=== PATIENT | male | born 1970 | race Caucasian/White ===

== ENCOUNTER 2019-03-25 17:18 | Emergency (ER) | payer MEDICARE, SELFPAY ==
[2019-03-25 17:20] VITALS: BP 133/81; PULSE 79; RESP 16; TEMP 36.6; O2SAT 99; BMI 33.2
--- NOTE | 2019-03-25 18:44 | ED.DCSUM_ITS ---
History of Present Illness Chief Complaint: Abd Pain Informant: Patient, Family Onset: Today Narrative: Patient presents with suprapubic discomfort along with noting blood in his Baum catheter. He is on Lovenox for history of lupus with blood clots in the past. Baum catheter placed in November due to urethral strictures followed by Dr. Jones from [facility]. Upcoming plans for suprapubic cath for planned surgery. Last Baum exchange was earlier this month. No fevers. States feeling weak. No vomiting or diarrhea. States Baum catheter is still draining. Prior similar symptoms: No Past Medical History - Allergies and Home Meds Allergies/Adverse Reactions: Allergies piperacillin Allergy (Verified 03/25/19 17:20) Unknown vancomycin Allergy (Verified 03/25/19 17:20) Unknown Primary Care Physician: Paul Urias MD [Primary Care Provider] - Past Medical History: - - Lupus, blood clots, splenomegaly, urethral stricture Smoking Status: Never smoker Review of Systems General: Denies: Chills, Fever, Sweats Eyes: Denies: Visual changes - bilaterally, Diplopia ENT: Denies: Rhinorrhea, Sore throat Cardiovascular: Denies: Chest pain, Palpitations Respiratory: Denies: Dyspnea, Cough, Dyspnea on exertion Gastrointestinal: Reports: Abdominal pain. Denies: Nausea, Vomiting, Diarrhea, Melena, Hematochezia Genitourinary: Denies: Dysuria, Hematuria, Frequency Musculoskeletal: Denies: Back pain, Extremity Pain Skin: Denies: Rash, Wounds Neurological: Reports: Weakness. Denies: Headache, Numbness Physical Exam Vital Signs/Narrative: Vital Signs Temp Pulse Resp BP Pulse Ox 03/25/19 17:20 97.9 F 79 16 133/81 H 99 Inital Vital Signs reviewed: Yes General: Well nourished, Well developed, No Acute Distress Head: Normocephalic, Atraumatic Eyes: Perrl, EOMI ENT: Moist mucous membranes, No rhinorrhea Neck: Supple, Nontender Cardiovascular: Regular rate, Regular rhythm, No murmurs Respiratory: No distress, CTA bilaterally, Chest nontender Abdomen: Soft, Nondistended, Normal bowel sounds, - - Suprapubic tenderness without guarding or rebound. Lower abdominal ecchymosis bilaterally subcu injection sites. : - - Baum catheter brownish urine, no bloody urine. Back: Nontender, Normal Inspection Extremities: Nontender, No edema Skin: Normal color, No rash Neurological: Alert, Oriented x3, Cranial nerves II-XII grossly intact, Normal Strength, Normal Sensation Psychological: Normal affect, Normal Mood Diagnostic/Tx/Re-eval Abnormal Lab Results 03/25/19 03/25/19 03/25/19 17:30 17:45 17:45 WBC 3.4 L RBC 4.70 Hgb 15.4 Hct 42.9 MCV 91.3 MCH 32.8 H MCHC 35.9 RDW Std Deviation 46.5 H RDW Coeff of Liana 13.9 Plt Count 70 L MPV 9.1 Immature Gran % (Auto) 0.000 Neut % (Auto) 58.6 Lymph % (Auto) 30.1 Fountain % (Auto) 8.6 Eos % (Auto) 2.1 Baso % (Auto) 0.6 Absolute Neuts (auto) 2.0 Absolute Lymphs (auto) 1.02 Nucleated RBC % 0 Platelet Estimate MOD DEC RBC Morphology NORM C+C PT 15.1 H INR 1.2 APTT 44.9 H Sodium Potassium Chloride Carbon Dioxide Anion Gap BUN Creatinine Estim Creat Clear Calc Est GFR (MDRD) Af Amer Est GFR (MDRD) Non-Af BUN/Creatinine Ratio Glucose Calcium Urine Color Brown Urine Clarity Turbid Urine pH 5.0 Ur Specific [place] 1.020 Urine Protein 100 H Urine Glucose (UA) Normal Urine Ketones 5 H Urine Occult Blood 250 H Urine Nitrite Positive H Urine Bilirubin 1 H Urine Urobilinogen Normal Ur Leukocyte Esterase 500 H Urine RBC > 100 SEEN Urine WBC 50-100 SEEN Ur Squamous Epith Cells 0 SEEN Urine Bacteria 1+ Urine Mucus 0 SEEN 03/25/19 17:45 WBC RBC Hgb Hct MCV MCH MCHC RDW Std Deviation RDW Coeff of Liana Plt Count MPV Immature Gran % (Auto) Neut % (Auto) Lymph % (Auto) Fountain % (Auto) Eos % (Auto) Baso % (Auto) Absolute Neuts (auto) Absolute Lymphs (auto) Nucleated RBC % Platelet Estimate RBC Morphology PT INR APTT Sodium 139 Potassium 4.2 Chloride 108 H Carbon Dioxide 26.0 Anion Gap 5 BUN 11 Creatinine 0.85 Estim Creat Clear Calc 125.65 Est GFR (MDRD) Af Amer 123 Est GFR (MDRD) Non-Af 101 BUN/Creatinine Ratio 12.9 Glucose 104 Calcium 9.4 Urine Color Urine Clarity Urine pH Ur Specific [place] Urine Protein Urine Glucose (UA) Urine Ketones Urine Occult Blood Urine Nitrite Urine Bilirubin Urine Urobilinogen Ur Leukocyte Esterase Urine RBC Urine WBC Ur Squamous Epith Cells Urine Bacteria Urine Mucus - Medical Decision Making Patient nontoxic, chronic Baum catheter due to his urethral strictures. His symptoms and suprapubic tenderness treated with morphine for comfort, is a non surgical abdomen. Labs stable creatinine stable hemoglobin stable urine notes infection with hematuria. Nursing was able to flush the Baum with no problems. Started on Rocephin with urine culture pending. Patient does see urology Dr. Jones with a planned upcoming suprapubic cath supposed to be within this next week. Will hold on exchanging Baum at this time due to his planned procedure. Prescription of Keflex. Follow-up as an outpatient. ED Disposition - Plan for ED Patient: Disposition: Home or Assisted Living Diagnosis: Complicated urinary tract infection Instructions: Understanding Urinary Tract Infections (UTIs) Prescriptions: Cephalexin [Keflex] 500 mg PO Q8H #30 capsule Referrals: Paul Urias MD [Primary Care Provider] - Additional Instructions: Take antibiotics as prescribed. Follow-up with Dr. Jones.
[2019-03-25 18:50] LABS: Mucous, Urine 0 SEEN /hpf (<or=2+); Squamous Epithelial Cells - UA 0 SEEN /hpf (0-5)
[2019-03-25] MEDS: 0.9% Normal Saline 1,000 ML 1000 ML IV (18:55)
[2019-03-25] MEDS: Morphine 4 MG/ML Syringe IV (18:55)
[2019-03-25 19:02] LABS: Anion Gap 5 (5-15); BUN 11 mg/dL (7-18); BUN/Creat Ratio 12.9 RATIO (10-20); Calcium,Total 9.4 mg/dL (8.5-10.1); Chloride 108 mmol/L (98-107); Creatinine, Serum 0.85 mg/dL (0.70-1.30); EST Glomerular Filtration Rate 101 mL/min (>60); Est Glom Filt Rate - Afr Amer 123 mL/min (>60); Estimated Creatinine Clearance 125.65 ml/min; Glucose 104 mg/dL (74-106); Potassium 4.2 mmol/L (3.5-5.1); Sodium Level 139 mmol/L (136-145)
[2019-03-25 19:04] LABS: Absolute Lymphocyte Count 1.02 X10^3/uL (0.83-4.51); Basophil# 0.02 X10^3/uL; Basophil% 0.6 % (0-1); Eosinophil# 0.07 X10^3/uL; Eosinophils% 2.1 % (0-5); Hematocrit 42.9 % (40-54); Hemoglobin 15.4 g/dL (13.0-16.5); Lymphocyte # 1.02 X10^3/ul (4.0); Lymphocyte % 30.1 % (19-41); Mean Corp Hgb Conc 35.9 g/dL (32-36); Mean Corpuscular Hgb 32.8 pg (27.0-32.0); Mean Corpuscular Volume 91.3 fL (80-94); Mean Platelet Vol. 9.1 fl (6.2-12.0); Monocyte# 0.29 X10^3/uL; Monocyte% 8.6 % (0-10); NRBC Flagged by Analyzer 0 % (0-5); Neutrophil # 1.99 X10^3/uL (2.7-7.7); Neutrophil % 58.6 % (47-70); POSITIVE COUNT YES; Platelet Count 70 K/mm3 (150-450); RBC Distribution Width CV 13.9 % (11.6-14.6); RBC Distribution Width SD 46.5 fl (35.1-43.9); White Blood Count 3.4 K/mm3 (4.4-11.0)
[2019-03-25 19:07] LABS: International Normalized Ratio 1.2; Prothrombin Time (Protime)PT. 15.1 SECONDS (11.7-14.9)
[2019-03-25 19:08] LABS: Partial Thromboplast Time 44.9 Seconds (24.1-36.2)
[2019-03-25 19:10] LABS: Differential Indicated SCAN CRITERIA MET
[2019-03-25 19:11] LABS: Color, Urine Brown (Yellow); Glucose, Dipstick Normal (Normal); Ketone-Dipstick 5 mg/dl (Negative); Leukocyte Esterase-Dipstick 500 /ul (Negative); Nitrite-Dipstick Positive (Negative); Occult Blood-Urine 250 /ul (Negative); Protein-Dipstick 100 mg/dl (Negative); Urine Clarity Turbid (Clear); Urine Urobilinogen Normal (Normal)
[2019-03-25 19:12] LABS: Urine Bilirubin Dipstick 1 mg/dL (Negative)
[2019-03-25 19:18] LABS: Bacteria 1+ /hpf (None Seen); Red Blood Cells-Urine > 100 SEEN /hpf (0-5); White Blood Cells 50-100 SEEN /hpf (0-5)
[2019-03-25 19:29] LABS: Platelet Estimate MOD DEC (ADEQ); Red Cell Morphology NORM C+C NORMAL (NORM C&C)
[2019-03-25 19:34] VITALS: BP 131/83; PULSE 71; RESP 16; TEMP 36.9; O2SAT 97
[2019-03-25] MEDS: Ceftriaxone 1 GM/50 ML BAG IV (20:24)
[2019-03-25 21:14] VITALS: BP 126/80; PULSE 74; RESP 16; O2SAT 96
== END 2019-03-25 21:53 | disposition home or self-care (01) ==
PROVIDERS: Emergency Provider Emergency Medicine; PCP Family Medicine; Referring Provider Family Medicine
DX: N39.0 Urinary tract infection, site not specified (principal); R31.9 Hematuria, unspecified; M32.9 Systemic lupus erythematosus, unspecified; Z79.01 Long term (current) use of anticoagulants; Z79.899 Other long term (current) drug therapy; Z88.0 Allergy status to penicillin
CPT/HCPCS: 80048; 81001; 85025; 85610; 85730; 87077; 87086; 87088; 87186; 96361; 96365; 96375; 99284; J7030; J7050; A4216

== ENCOUNTER 2019-07-08 14:46 | Emergency (ER) | payer MEDICARE, SELFPAY ==
[2019-07-08 14:47] VITALS: BP 160/93; PULSE 88; RESP 18; TEMP 36.6; O2SAT 99; BMI 34.3
--- NOTE | 2019-07-08 15:05 | CT_ITS ---
STUDY: CT ABDOMEN AND PELVIS WITHOUT CONTRAST REASON FOR EXAM: Male, 49 years old. LEFT SIDE ABD CHRONIC SPLENOMEGALY RADIATION DOSAGE (If Supplied By Facility): CTDIvol = ( 17.03 ) mGy, DLP = ( 1363.48 ) mGycm TECHNIQUE: Transaxial images were obtained from the dome of the diaphragm to the symphysis pubis without oral contrast, and without intravenous contrast. Sagittal and coronal images were reconstructed. Individualized dose optimization techniques were used for this CT. COMPARISON: Previous study of April 10, 2016 FINDINGS: There is a calcified granuloma in the left lower lobe. The visualized portions of the heart are within normal limits. Normal liver. There is non-visualization of the gallbladder, which may be secondary to either contraction or a prior cholecystectomy. There is severe splenomegaly. Normal pancreas. Normal bilateral adrenal glands. Normal right kidney. Normal left kidney. Normal visualized stomach. Normal small intestine. There is colonic diverticulosis. There is no evidence of associated diverticulitis. There is non-visualization of the appendix. Normal abdominal aorta. An IVC filter is noted appearing in adequate position. Normal retroperitoneum. A Baum catheter is present within a decompressed urinary bladder. There is a small umbilical hernia containing fat. A stimulator device is seen in the subcutaneous soft tissues of the left flank with wire lead seen in the presacral area. There is mild old compression deformity of the superior endplate of L2. There is a hemangioma of the T11 body. CT/Abdomen/Pelvis W IV Cont ONLY IMPRESSION: 1. Calcified left lower lobe granuloma. 2. Nonvisualization of the gallbladder. 3. Severe splenomegaly. This is similar to the previous study. 4. Colonic diverticulosis with no evidence of associated diverticulitis. 5. IVC filter seen appearing in adequate position. 6. Baum catheter present within a decompressed urinary bladder. 7. Small fat-containing umbilical hernia. 8. There is no evidence of free intra-abdominal or intrapelvic air, fluid, or inflammatory process. Electronically Signed: Salomon Burnham MD at 16:58 EDT , Service support ,
--- NOTE | 2019-07-08 15:15 | ED.VIS.GI ---
History of Present Illness Informant: Patient - Abdominal Pain/Flank Pain Onset: Yesterday Context: Sudden Onset Timing: Continuous Quality: Sharp, Stabbing Location: LUQ Current Severity: Severe Maximum Severity: Severe Worsened by: Movement Relieved by: Remaining Still - Nausea/Vomiting/Emesis GI Symptom: Negative for: Nausea, Vomiting - Diarrhea/Melena/Hematochezia GI Symptom: Negative for: Diarrhea, Melena, Hematochezia Associated Symptoms: Negative for: Dysuria, Frequency, Hematuria, Urgency Narrative: 49-year-old male presents with abdominal pain. It is on his left side of his abdomen. He has a chronically enlarged spleen. He was laying on his stomach yesterday fixing his lawnmower and after about 5 minutes of doing this he had a sudden onset of a very sharp intense pain in the area of his spleen. He rolled over and laid on his back for 15 or 20 minutes and symptoms improved but did not resolve. He then laid back down to finish what he was doing and symptoms returned so he discontinued this activity. Pain is progressively worsened since then. Is in his left upper quadrant radiating to his left flank the left side of his back and his left shoulder. He has pain with inspiration. He has not had any vomiting shortness of breath fevers and denies trauma Prior similar symptoms: No Recent Illness/Hospitalization: No <Juancarlos Bruno - Last Filed: 07/08/19 15:15> <Gustavo Mack - Last Filed: 07/08/19 17:50> Chief Complaint: Abd Pain Past Medical History Prior records reviewed: Yes Past Medical History: - - Lupus anticoagulant, urethral stricture with chronic suprapubic catheter Surgical History: cholecystectomy Lives: Alone Smoking Status: Never smoker Alcohol: None Drugs: None <Juancarlos Bruno - Last Filed: 07/08/19 15:15> <Gustavo Mack - Last Filed: 07/08/19 17:50> - Allergies and Home Meds Allergies/Adverse Reactions: Allergies piperacillin Allergy (Verified 07/08/19 14:47) Unknown vancomycin Allergy (Verified 07/08/19 14:47) Unknown Primary Care Physician: Paul Urias MD [Primary Care Provider] - Review of Systems All systems negative except as indicated General: Denies: Chills, Fever, Malaise Eyes: Denies: Visual changes - bilaterally, Blurred Vision - bilaterally, Diplopia ENT: Denies: Rhinorrhea, Sore throat Cardiovascular: Denies: Chest pain, Palpitations, Heart racing Respiratory: Denies: Dyspnea, Cough, Sputum Gastrointestinal: Reports: Abdominal pain. Denies: Nausea, Vomiting, Diarrhea Genitourinary: Denies: Dysuria, Hematuria, Frequency Musculoskeletal: Denies: Myalgias, Arthralgias, Neck pain Skin: Denies: Rash, Abscess, Abrasions, Wounds Neurological: Denies: Headache, Weakness, Parasthesia, Numbness Hematologic: Denies: Easy bruising, Easy bleeding <Juancarlos Bruno - Last Filed: 07/08/19 15:15> Physical Exam Vital Signs/Narrative: Vital Signs Temp Pulse Resp BP Pulse Ox 07/08/19 14:47 97.9 F 88 18 160/93 H 99 Inital Vital Signs reviewed: Yes General: Well nourished, Well developed, No Acute Distress Head: Normocephalic, Atraumatic ENT: Moist mucous membranes Neck: Supple, Nontender, No lymphadenopathy, No JVD Cardiovascular: Regular rate, Regular rhythm Respiratory: No distress, CTA bilaterally, Chest nontender Abdomen: Soft, Nondistended, Normal bowel sounds, No masses, Tender Back: Nontender, Normal Inspection Extremities: Nontender, No edema Skin: Normal color, No rash Neurological: Alert, Oriented x3 Psychological: Normal affect, Normal Mood <Juancarlos Bruno - Last Filed: 07/08/19 15:15> Vital Signs/Narrative: Vital Signs Temp Pulse Resp BP Pulse Ox 07/08/19 15:23 79 15 133/78 H 97 07/08/19 14:47 97.9 F 88 18 160/93 H 99 <Gustavo Mack - Last Filed: 07/08/19 17:50> Diagnostic/Tx/Re-eval - Medical Decision Making Seen with our PA. Patient points to left upper quadrant abdominal encounter flank pain. He is a known history of large spleen. Denies any falls, injury or trauma. Denies any fever. Patient does state that that does have issues with chronic pain but typically is not like this. Vital signs are stable afebrile. Middle-aged male. No acute distress.. Neck nontender. Lungs clear to auscultation. Heart regular rhythm no murmur. Abdomen soft. He is mildly tender left upper quadrant. There is no rebound or guarding currently. No signs of trauma. No bruising. He is moving all 4 extremities. Neurovascular intact. There is no edema. Back nontender. Neurologically is awake and alert. Emergency department course: Middle-aged male with left upper quadrant abdominal pain and large spleen. Imaging is being obtained. Currently his chemistry panel is unremarkable. CT abdomen pelvis shows no acute abnormality read by the radiologist reviewed by me. He does have splenomegaly has been seen for the past. There is no sign of acute intra-abdominal bleeding or splenic rupture. Otherwise its only shows chronic changes. Urinalysis shows nitrates but no white or red cells. Only 1+ bacteria. He does have a suprapubic catheter. I do not feel it needs to be treated. Repeat exam is doing well at 1740 8 PM. I discussed test results with him will be discharged home. Impression: Left upper quadrant abdominal pain History of splenomegaly <Gustavo Mack - Last Filed: 07/08/19 17:50> ED Disposition <Juancarlos Bruno - Last Filed: 07/08/19 15:15> <Gustavo Mack - Last Filed: 07/08/19 17:50> - Plan for ED Patient: Referrals: Paul Urias MD [Primary Care Provider] -
[2019-07-08 15:23] VITALS: BP 133/78; PULSE 79; RESP 15; O2SAT 97
[2019-07-08 15:24] LABS: Absolute Lymphocyte Count 1.05 X10^3/uL (0.83-4.51); Absolute Neutrophil Count 1.5 X10^3/uL (2.0-7.7); Basophil# 0.02 X10^3/uL; Basophil% 0.7 % (0-1); Eosinophil# 0.11 X10^3/uL; Eosinophils% 3.9 % (0-5); Hematocrit 42.1 % (40-54); Hemoglobin 14.8 g/dL (13.0-16.5); Lymphocyte # 1.05 X10^3/ul (4.0); Lymphocyte % 36.8 % (19-41); Mean Corp Hgb Conc 35.2 g/dL (32-36); Mean Corpuscular Hgb 30.8 pg (27.0-32.0); Mean Corpuscular Volume 87.7 fL (80-94); Mean Platelet Vol. 8.9 fl (6.2-12.0); Monocyte# 0.22 X10^3/uL; Monocyte% 7.7 % (0-10); NRBC Flagged by Analyzer 0 % (0-5); Neutrophil # 1.45 X10^3/uL (2.7-7.7); Neutrophil % 50.9 % (47-70); POSITIVE COUNT YES; Platelet Count 70 K/mm3 (150-450); RBC Distribution Width CV 14.7 % (11.6-14.6); RBC Distribution Width SD 46.4 fl (35.1-43.9); White Blood Count 2.9 K/mm3 (4.4-11.0)
[2019-07-08 15:36] LABS: International Normalized Ratio 1.2; Partial Thromboplast Time 36.8 Seconds (24.1-36.2); Prothrombin Time (Protime)PT. 14.9 SECONDS (11.7-14.9)
[2019-07-08] MEDS: Morphine 4 MG/ML Syringe IV (15:38)
[2019-07-08] MEDS: Ondansetron 4 MG/2 ML Vial IV (15:38)
[2019-07-08] MEDS: 0.9% Normal Saline 1,000 ML 125 ML IV (15:38)
[2019-07-08 15:48] LABS: Anion Gap 5 (5-15); BUN 11 mg/dL (7-18); BUN/Creat Ratio 12.2 RATIO (10-20); Calcium,Total 8.9 mg/dL (8.5-10.1); Chloride 109 mmol/L (98-107); EST Glomerular Filtration Rate 95 mL/min (>60); Est Glom Filt Rate - Afr Amer 114 mL/min (>60); Estimated Creatinine Clearance 117.36 ml/min; Glucose 112 mg/dL (74-106); Potassium 3.5 mmol/L (3.5-5.1); Sodium Level 139 mmol/L (136-145)
[2019-07-08 15:59] LABS: Differential Indicated SCAN CRITERIA MET
[2019-07-08 16:00] LABS: Differential Comment SCANNED; Platelet Estimate MOD DEC (ADEQ)
[2019-07-08 17:15] LABS: Mucous, Urine 0 SEEN /hpf (<or=2+); Squamous Epithelial Cells - UA 0 SEEN /hpf (0-5)
[2019-07-08 17:20] LABS: Color, Urine Yellow (Yellow); Glucose, Dipstick Normal (Normal); Ketone-Dipstick Negative (Negative); Leukocyte Esterase-Dipstick 100 /ul (Negative); Nitrite-Dipstick Positive (Negative); Occult Blood-Urine 25 /ul (Negative); Protein-Dipstick 15 mg/dl (Negative); Urine Bilirubin Dipstick Negative (Negative); Urine Clarity Sl. Cloudy (Clear); Urine Urobilinogen Normal (Normal)
[2019-07-08 17:26] VITALS: BP 129/74; RESP 18
[2019-07-08 17:41] LABS: Bacteria 1+ /hpf (None Seen); White Blood Cells 0-5 SEEN /hpf (0-5)
[2019-07-08 17:42] LABS: Red Blood Cells-Urine 0-5 SEEN /hpf (0-5)
--- NOTE | 2019-07-08 17:50 | ED.DEP ---
ED Disposition - Plan for ED Patient: Disposition: Home or Assisted Living Instructions: ED Abdominal Pain Unkn Cause Fem Referrals: Paul Urias MD [Primary Care Provider] - 1 Week if not improving Additional Instructions: Your labs today were your normal labs. CAT scan showed no acute abnormality. Follow-up with your doctor if not improving.
[2019-07-08 18:00] VITALS: BP 126/75; PULSE 76; RESP 14; O2SAT 99
== END 2019-07-08 18:02 | disposition home or self-care (01) ==
PROVIDERS: Emergency Medicine; Emergency Provider Physician Assistant Medical; PCP Family Medicine
DX: R10.12 Left upper quadrant pain (principal); R16.1 Splenomegaly, not elsewhere classified; G89.29 Other chronic pain; Z79.4 Long term (current) use of insulin; Z79.899 Other long term (current) drug therapy; Z88.0 Allergy status to penicillin; Z90.49 Acquired absence of other specified parts of digestive tract
CPT/HCPCS: 51702; 74177; 80048; 81001; 85025; 85610; 85730; 96361; 96374; 96375; 99284; J7030; Q9967; J2405

== ENCOUNTER 2019-07-28 05:34 | Emergency (ER) | payer MEDICARE, SELFPAY ==
[2019-07-28 05:35] VITALS: BP 154/87; PULSE 88; RESP 16; TEMP 36.4; O2SAT 98; BMI 33.0
--- NOTE | 2019-07-28 06:07 | ED.DCSUM_ITS ---
History of Present Illness Chief Complaint: Complaint Informant: Patient Narrative: Patient states that a week ago [facility] he had a suprapubic catheter placed for urethral stricture and he needs to have a reconstructive surgery. He also states he has a bladder pacemaker. He states that beginning about 10 hours ago he noticed an urge to urinate and urine would come from his penis but it was dark so he could not say how much came out of the penis. He states there is not been much output through the catheter. He states he has pain at the base of the penis particularly when he gets that urge to urinate. No fevers. He did not call his surgeon. He believes the surgeon's office opens in 2 hours. Past Medical History - Allergies and Home Meds Allergies/Adverse Reactions: Allergies piperacillin Allergy (Verified 07/08/19 14:47) Unknown vancomycin Allergy (Verified 07/08/19 14:47) Unknown Primary Care Physician: Paul Urias MD [Primary Care Provider] - Surgical History: cholecystectomy Smoking Status: Former smoker Review of Systems General: Denies: Chills, Fever, Sweats Eyes: Denies: Visual changes - bilaterally, Diplopia ENT: Denies: Rhinorrhea, Sore throat Cardiovascular: Denies: Chest pain, Palpitations Respiratory: Denies: Dyspnea, Cough, Dyspnea on exertion Gastrointestinal: Denies: Abdominal pain, Nausea, Vomiting, Diarrhea, Melena, Hematochezia Genitourinary: Reports: - - See history of present illness. Denies: Dysuria, Hematuria, Frequency Musculoskeletal: Denies: Back pain, Extremity Pain Skin: Denies: Rash, Wounds Neurological: Denies: Headache, Weakness, Numbness Physical Exam Vital Signs/Narrative: Vital Signs Temp Pulse Resp BP Pulse Ox 07/28/19 05:35 97.5 F L 88 16 154/87 H 98 Inital Vital Signs reviewed: Yes General: Well nourished, Well developed, No Acute Distress Head: Normocephalic, Atraumatic Eyes: Perrl, EOMI ENT: Moist mucous membranes, No rhinorrhea Neck: Supple, Nontender Cardiovascular: Regular rate, Regular rhythm, No murmurs Respiratory: No distress, CTA bilaterally, Chest nontender Abdomen: Soft, Nontender, Nondistended, Normal bowel sounds : - - Is a suprapubic catheter with stitches in place. The balloon has 10 cc in it. On ultrasound there is no bladder distention. I am able to easily pass fluid through the Baum and withdrawal from the Baum. Some of the sterile saline does come out of the penis. The surgical site is clean dry and intact. Back: Nontender, Normal Inspection Extremities: Nontender, No edema Skin: Normal color, No rash Neurological: Alert, Oriented x3, Cranial nerves II-XII grossly intact, Normal Strength, Normal Sensation Psychological: Normal affect, Normal Mood ED Disposition - Plan for ED Patient: Disposition: Home or Assisted Living Diagnosis: Penile pain, Suprapubic catheter dysfunction Referrals: Paul Urias MD [Primary Care Provider] - Additional Instructions: I feel that it would be important to be able to tell your doctor how much fluids you have taken in and how much is coming out in both the catheter and the penis. So if you would go home and drink 1 L when you could say I drink 1 L at this time and over the past 2 hours I am seeing Y amount of urine in the catheter and X amount of urine from the penis.
== END 2019-07-28 06:41 | disposition home or self-care (01) ==
PROVIDERS: Emergency Provider Emergency Medicine; PCP Family Medicine
DX: N48.89 Other specified disorders of penis (principal); N99.512 Cystostomy malfunction; Z79.01 Long term (current) use of anticoagulants; Z88.1 Allergy status to other antibiotic agents; Z87.891 Personal history of nicotine dependence; Z90.49 Acquired absence of other specified parts of digestive tract
CPT/HCPCS: 99282

== ENCOUNTER → 2020-06-13 08:51 | Outpatient (CLI) | payer MEDICARE, SELFPAY ==
[2020-05-18 08:42] VITALS: BMI 32.7
--- NOTE | 2020-06-13 09:00 | BD_ITS ---
STUDY: DUAL ENERGY X-RAY ABSORPTIOMETRY / DXA REASON FOR EXAM: Male, 50 years old. Osteopenia TECHNIQUE: Bone Mineral Density (BMD) measurements of lumbar spine and bilateral hips were obtained. COMPARISON: None. FINDINGS: Lumbar Spine (L1-L4): g/cm2 (1.068) / T-score (-1.3) / Z-score (-1.1) Findings are suggestive of osteopenia with a low fracture risk. Left Femur Total: g/cm2 (0.878) / T-score (-1.5) / Z-score (-1.2) Left Femoral Neck: g/cm2 (0.805) / T-score (-2.0) / Z-score (-1.4) Right Femur Total: g/cm2 (0.859) / T-score (-1.7) / Z-score (-1.3) Right Femoral Neck: g/cm2 (0.783) / T-score (-2.2) / Z-score (-1.6) BD/Dexa Bone Density Study IMPRESSION: The patient is considered osteopenic as outlined below according to World Cam Organization (WHO) criteria with a high fracture risk. Reference Information: The T-score is the number of standard deviations above or below the standard which is normal for young adults at their peak bone mineral density. The World Health Organization (WHO) interprets the T-scores as follows: Above -1 Normal bone density Between -1 and -2.5 Osteopenia Equal to / or below -2.5 Osteoporosis As a practical clinical guideline, osteopenia may be graded as follows: Mild -1 through -1.5 Moderate -1.6 through -2.0 Severe -2.1 through -2.4 The Z-score is the number of standard deviations above or below age-matched controls. A Z-score of less than -1.5 would be considered abnormal. References: 1. NIH Osteoporosis and Related Bone Diseases www osteo.org 2. International Society for Clinical Densitometry www iscd.org 3. National Osteoporosis Foundation www nof.org Electronically Signed: Samuel Alva MD at 14:41 EDT , Service support ,
== END ==
PROVIDERS: PCP Family Medicine; Referring Provider Internal Medicine Endocrinology, Diabetes & Metabolism; Visit Provider Internal Medicine Endocrinology, Diabetes & Metabolism
DX: M85.80 Other specified disorders of bone density and structure, unspecified site (principal); E29.1 Testicular hypofunction; M81.0 Age-related osteoporosis without current pathological fracture
CPT/HCPCS: 77080

== ENCOUNTER → 2021-09-04 | Outpatient (CLI) | payer MEDICARE, SELFPAY | END | disposition home or self-care (01) | LOC: SL 22:04 | PROVIDERS: PCP Family Medicine; Referring Provider Psychiatry & Neurology Sleep Medicine; Visit Provider Psychiatry & Neurology Sleep Medicine | DX: G47.33 Obstructive sleep apnea (adult) (pediatric) (principal) | CPT/HCPCS: 95811 ==

== ENCOUNTER → 2024-08-15 | Outpatient (CLI) | payer MEDICARE, SELFPAY ==
[2024-08-15 14:23] LABS: Hepatitis B Surface Antibody Nonreactive
[2024-08-15 14:27] LABS: Hepatitis B Surface Antigen Nonreactive (Nonreactive); Hepatitis C Antibody Nonreactive (Nonreactive)
[2024-08-15 15:20] LABS: International Normalized Ratio 1.3; Prothrombin Time (Protime)PT. 16.8 SECONDS (11.7-14.9)
[2024-08-17 05:07] LABS: AFP, Tumor Marker 2.8 ng/mL (0.0-8.4); Hepatitis A AB, Total Positive (Negative); Hepatitis B Core Ab Total Negative (Negative)
== END | disposition home or self-care (01) ==
LOC: LAB 12:32
PROVIDERS: PCP Family Medicine; Referring Provider Nurse Practitioner Acute Care; Visit Provider Nurse Practitioner Acute Care
DX: K74.60 Unspecified cirrhosis of liver (principal); K72.90 Hepatic failure, unspecified without coma
CPT/HCPCS: 36415; 82105; 85610; 86704; 86706; 86708; 86803; 87340

== ENCOUNTER 2024-08-16 11:08 | Outpatient (CLI) | payer MEDICARE, SELFPAY ==
[2024-08-16 12:48] VITALS: BP 120/72; PULSE 70; RESP 16; TEMP 36.1; O2SAT 98
[2024-08-16] MEDS: Lidocaine 2% (20 ml mdv) 20 ML Vial INFILT (12:50)
--- NOTE | 2024-08-16 12:55 | FLU_PTH ---
PATIENT: HAL ANDERSON LOC: [facility] U#:[id number] AGE/SX: 54/M ROOM: RE08/16/[address]: AGUSTIN Pacheco : 1970 BED: DIS: 08/16/2024 SPEC #: [id number] RECD: 08/16/24 13:58 STATUS: LATRICE REDamaso #: [id number] CASSIE: 08/16/24 12:[address]: Padmini Bauer DEPT: CYTOLOGY RECD BY: Torres Arrieta ENTERED: 08/17/24 06:57 SP TYPE: Fluid OTHR DR: Dr. Paul Urias MD Tissues: A - PARACENTESIS FLUID Procedures: Special Stain Group II Surgery Specimen Level IV Cytospin Fluid HEADER OPERATION: Ultrasound guided paracentesis PRE-OP DIAGNOSIS: Ascites TISSUE SUBMITTED: A- Paracentesis fluid for cytology DIAGNOSIS CYTOLOGY A. Peritoneal fluid, ascites, paracentesis (cytospin, cellblock): * No malignant cells identified. CYTOLOGY STUDY Slides are reviewed. CYTOLOGY GROSS A. Received is 90 ml of yellow-cloudy fluid labeled with the patient's name and and designated per the requisition as Paracentesis fluid. Submitted for cytology and cell block preparation. Mr 08/17/2024 CPT: 97337, 29608
[2024-08-16 13:00] VITALS: BP 123/68; PULSE 72; RESP 16; O2SAT 98
[2024-08-16 13:15] VITALS: BP 118/67; PULSE 75; RESP 16; O2SAT 98
[2024-08-16 13:22] VITALS: BP 110/67; PULSE 72; RESP 16; O2SAT 98
--- NOTE | 2024-08-16 13:28 | OP.PCM_ITS ---
Problems Associated Problem List Diagnoses (1) Ascites: Multi Select Codes Radiology Radiology US Procedures: 25198 Paracentesis Operative Report (Standard) Operative Information Date of Procedure: 08/16/24 Pre-Operative Diagnosis: Ascites Post-Operative Diagnosis: Ascites Surgery/Procedure Performed: Ultrasound-guided paracentesis certified pathology assistant: No Type of Anesthesia: Local Procedure Start Time: 12:46 Procedure Stop Time: 13:23 Select all DRAINS/GRAFTS/IMPLANTS that apply: None Estimated Blood Loss: 0 Specimen collected: Yes Description of specimen(s) removed: 100 mL of clear dark yellow fluid Description of surgery: PROCEDURE: Ultrasound guided paracentesis ORDERING PROVIDER: Padmini Bauer CNP INDICATION: Male, 54 years old. Ascites. PROVIDER: ROSEMARY Maldonado TECHNIQUE: The risks, benefits, and alternatives to the procedure were explained to the pa tient. The specific risks of bleeding, infection, and damage to bowel were detailed and accepted. Witnessed informed consent was obtained. The patient is on Lovenox twice daily; he held the 2 doses preprocedure. The abdomen was ultrasonographically surveyed. An appropriate pocket of fluid was identified in the left lower quadrant. The skin was prepped with chlorhexidine and sterile field established. 2% lidocaine was used for local anesthetic. Using ultrasound guidance, the peritoneal cavity was accessed with a 5-Yemeni paracentesis needle/catheter system. The trocar was removed. A total of 6050 ml of clear dark yellow colored fluid was removed from the peritoneal cavity. A sample was sent to the lab for diagnostic purposes. The catheter was removed and a sterile dressing was applied. The procedure was well tolerated. There were no immediate complications. The procedure was proctored by interventional radiologist Dr. Alva. IMPRESSION: Successful ultrasound guided paracentesis with left lower quadrant access site. Surgical Findings: None Complications Complications: No
[2024-08-16] MEDS: Albumin Human 25% (100 mL) 25 GM/100 ML BAG IV ×2 (14:00→15:23)
[2024-08-16 14:24] LABS: Cytology, Body Fluid / CSF SEE PATHOLOGY REPORT
[2024-08-16 14:32] LABS: AST(SGOT) 28 U/L (<=37); Alanine Aminotransfer ALT/SGPT 16 U/L (<=46); Albumin, Serum 3.5 g/dL (3.5-5.0); Alkaline Phosphatase 128 U/L (40-129); Anion Gap 9 (5-15); BUN 12 mg/dL (4-19); BUN/Creat Ratio 15.3 RATIO (10-20); Bilirubin, Direct 0.61 mg/dL (0.00-0.30); Calcium,Total 8.9 mg/dL (7.6-11.0); Carbon Dioxide 22.8 mmol/L (21.0-32.0); Chloride 106 mmol/L (98-108); EST Glomerular Filtration Rate 105 (>60); Globulin 2.2 g/dL (2.2-4.2); Glucose 111 mg/dL (70-99); Potassium 4.1 mmol/L (3.3-5.1); Protein, Total 5.8 g/dL (5.9-8.4); Sodium Level 138 mmol/L (133-145); Total Bilirubin 1.29 mg/dL (0.00-1.30)
[2024-08-16 15:17] LABS: Body Fluid Mononuclear WBC # 0.427 10^3/uL; Body Fluid Mononuclear WBC % 97.7 %; Body Fluid Polynuclear WBC % 2.3 %; Body Fluid Total Cells Counted 0.522 10^3/ul; Red Cell Count/Body Fluid 0.004 10^6/ul; White Blood Count/Body Fluid 0.437 10^3/uL
[2024-08-16 15:52] LABS: Auto B Fluid Analyzer BKGD Ct COUNTS W/IN LIMITS (W/IN LIMITS); Color/Body Fluid LT YEL; Source- Body Fluid PERITONEAL FLUID
[2024-08-16 15:53] LABS: Appearance/Body Fluid CLOUDY
[2024-08-16 16:49] LABS: Protein, Body Fluid 1.5 g/dL (Not Establ.)
[2024-08-16 17:08] VITALS: BP 122/62; PULSE 79; RESP 16; TEMP 36.6; O2SAT 98
[2024-08-16 22:43] LABS: Lymphocytes 59 %; Macrophages 30 %; Monocytes 11 %
[2024-08-16 22:46] LABS: Body Fluid QC Type(s) BF1Q
[2024-08-18 11:15] LABS: Pathologist Comment/Body Fluid Reviewed
[2024-08-18 16:09] LABS: Amylase Body Fluid 29 U/L (.)
== END 2024-08-16 23:59 | disposition home or self-care (01) ==
LOC: US 11:09 → MEDOUTP 11:16
PROVIDERS: PCP Family Medicine; Referring Provider Nurse Practitioner Acute Care; Visit Provider Nurse Practitioner Acute Care
DX: R18.8 Other ascites (principal); I85.10 Secondary esophageal varices without bleeding; K76.6 Portal hypertension; K74.69 Other cirrhosis of liver; J90 Pleural effusion, not elsewhere classified; I82.890 Acute embolism and thrombosis of other specified veins; I81 Portal vein thrombosis; D68.62 Lupus anticoagulant syndrome
CPT/HCPCS: 96365; 96366 ×2; 49083; 36415; 80048; 80076; 82042; 82150; 84157; 87070; 87075; 87205; 88108; 88305; 88313; 89050; P9047; A4216

== ENCOUNTER → 2024-08-24 | Outpatient (CLI) | payer MEDICARE, SELFPAY ==
[2024-08-24 13:11] LABS: Absolute Lymphocyte Count 0.63 X10^3/uL (0.83-4.51); Absolute Neutrophil Count 1.1 X10^3/uL (2.0-7.7); Basophil# 0.01 X10^3/uL; Basophil% 0.5 % (0-1); Eosinophil# 0.11 X10^3/uL; Eosinophils% 5.2 % (0-5); Hematocrit 32.6 % (40-54); Hemoglobin 10.9 g/dL (13.0-16.5); Lymphocyte # 0.63 X10^3/ul (0.83-4.51); Mean Corp Hgb Conc 33.4 g/dL (32-36); Mean Corpuscular Hgb 27.7 pg (27.0-32.0); Mean Platelet Vol. 8.9 fl (6.2-12.0); Monocyte# 0.21 X10^3/uL; NRBC Flagged by Analyzer 0 % (0-5); Neutrophil # 1.13 X10^3/uL (2.7-7.7); Neutrophil % 53.8 % (47-70); POSITIVE COUNT YES; Platelet Count 64 K/mm3 (150-450); RBC Distribution Width CV 15.5 % (11.6-14.6); RBC Distribution Width SD 46.2 fl (35.1-43.9); Red Blood Count 3.93 M/mm3 (4.6-6.2); White Blood Count 2.1 K/mm3 (4.4-11.0)
[2024-08-24 13:12] LABS: Differential Indicated SCAN CRITERIA MET
[2024-08-24 14:16] LABS: Anion Gap 9 (5-15); BUN 19 mg/dL (4-19); BUN/Creat Ratio 23.8 RATIO (10-20); Calcium,Total 8.9 mg/dL (7.6-11.0); Carbon Dioxide 26.1 mmol/L (21.0-32.0); Chloride 103 mmol/L (98-108); Creatinine, Serum 0.79 mg/dL (0.70-1.20); EST Glomerular Filtration Rate 105 (>60); Glucose 116 mg/dL (70-99); Potassium 3.6 mmol/L (3.3-5.1); Sodium Level 138 mmol/L (133-145)
== END | disposition home or self-care (01) ==
LOC: LAB 12:28
PROVIDERS: PCP Family Medicine; Referring Provider Nurse Practitioner Acute Care; Visit Provider Nurse Practitioner Acute Care
DX: K74.60 Unspecified cirrhosis of liver (principal); I85.10 Secondary esophageal varices without bleeding; K76.6 Portal hypertension; K72.90 Hepatic failure, unspecified without coma; J90 Pleural effusion, not elsewhere classified; I82.890 Acute embolism and thrombosis of other specified veins; I81 Portal vein thrombosis; R18.8 Other ascites; D68.62 Lupus anticoagulant syndrome
CPT/HCPCS: 36415; 80048; 85025

== ENCOUNTER 2024-11-24 07:24 | Day surgery (SDC) | payer MEDICARE, SELFPAY ==
--- NOTE | 2024-11-22 15:03 | PAT.ANESEVAL ---
Pre-Assessment Diagnosis/Proposed Procedure Planned Operative Procedure(s): EGD Anesthesia History Anesthesia History - review specialist: Anesthesia History - review specialist Hx Hospitalization No 11/21/24 14:37 Any Problems With Anesthesia No 11/21/24 14:37 Cholinesterase deficiency No 11/21/24 14:37 You/Your Family Experience No 11/21/24 14:37 fever (hyperthermia) with Relationship Recent Exposure to Contagious No 02/10/20 15:12 Disease Does patient have nerve Yes: SPINAL, PT STATES IT IS 11/21/24 14:37 stimulator NOT WORKING Patient instructed to have device shut off --Does patient have Pacemaker or ICD? When Was Last Pacemaker Check QUESTION #4 FULL TEXT: You/Your Family Experience fever (hyperthermia) with Anesthesia Last Oral Intake Last Oral intake: Last Oral Intake NPO since Meds taken in AM with sips of water? Meds patient instructed to take am of surgery PONV PONV - review specialist: PONV - review specialist Female No 11/21/24 14:37 HX of Motion Sickness No 11/21/24 14:37 HX of N/V After Surgery No 11/21/24 14:37 Non-Smoker Yes 11/21/24 14:37 Duration of Surgery greater No 11/21/24 14:37 than 60 minutes Number of Risk Factors 1 11/21/24 14:37 PONV Score Low Risk 11/21/24 14:37 Height & Weight Height & Weight: Anesthesia: Height & Weight Height 6 ft 2 in 11/03/24 11:07 Respiratory Assessment Respiratory Assessment - review specialist: Respiratory Tract Infection Hx - review specialist Hx Respiratory Tract Infection No 11/21/24 14:37 STOP Sleep Apnea STOP Sleep Apnea - review specialist: STOP Sleep Apnea - review specialist Hx Hypertension Yes: PER PT, CONTROLLED ON 11/21/24 14:37 MEDS Hx Sleep Apnea Yes: cpap 11/21/24 14:37 CPAP Yes 11/21/24 14:37 BIPAP No 11/21/24 14:37 Do you snore loudly (louder than talking or can be heard Do you often feel tired/ fatigued/ sleepy during daytime? Has anyone observed you stop breathing during sleep? STOP Results Positive 11/21/24 14:37 QUESTION #5 FULL TEXT : Do you snore loudly (louder than talking or can be heard through closed doors)? Tobacco Use History Tobacco Use History - review specialist: Tobacco Use History - review specialist Tobacco Use Non-smoker 04/17/21 10:16 Smoking Status Former smoker 11/21/24 14:37 Hx Tobacco Use No 11/21/24 14:37 Years Smoking Packs Smoked per Day Smoking Cessation Date was No - quit smoking greater 11/21/24 14:37 within the last 15 years than 15 years ago Hx Smoking Cessation Date Hx Smoking Cessation No 11/21/24 14:37 Counseling Hematologic Medial History Hematologic Hx - review specialist: Hematologic Medical Hx - clinical services specialist Hx of Blood Transfusion No 11/21/24 14:37 Hx of Transfusion in last 3 No 11/21/24 14:37 Months Date of Last Transfusion (if within last 3 months) Ever experience any problems No 11/21/24 14:37 with transfusion(s)? Specify any problems Hx of Preganancy in last 3 N/A 11/21/24 14:37 Months Nurse Filling Out Transfusion MAURICE 11/21/24 14:37 & Questions: Date: 11/21/24 11/21/24 14:37 Time: 14:40 11/21/24 14:37 Patient unable to answer at this time (ie. confused, unrespo /Reproduction History /Reproductive History - review specialist: /Reproductive Hx- review specialist Hx Now No 11/21/24 14:37 Gestational Age (in weeks): EDC: Hx Hx Para Hx Section SAB No 11/21/24 14:37 [facility] Medical History (Updated 11/21/24 @ 14:47 by Angelica Santos) Wears dentures Thyroid disease Fatty liver Easy bruising Difficulty chewing Hypertension Chronic cough Former smoker Sleep apnea CPAP (continuous positive airway pressure) dependence Shortness of breath on exertion Leg cramps History of echocardiogram History of irregular heartbeat Hepatomegaly Hematuria Embolism and thrombosis of unspecified site Esophageal varices DVT of popliteal vein Cirrhosis Chronic lower back pain Cholecystitis Calcified granuloma of lung Adjustment disorder with depressed mood Achilles tendon tear Obesity Diabetes Osteopenia determined by x-ray Lupus anticoagulant disorder Hypothyroidism (acquired) Male hypogonadism History of vertebral compression fracture Splenomegaly Vitamin deficiency Vision problems Pneumonia Hives Frequent headaches Chronic bronchitis BLOOD TRANSFUSION UTI (urinary tract infection) Bone fracture Back problem Home Medications ?Medication ?Instructions ?Recorded ?Last Taken ?Type enoxaparin 120 mg/0.8 mL 120 mg subcut Q12H 06/07/14 Unknown History subcutaneous syringe atorvastatin 10 mg tablet 10 mg PO DAILY #1 TAB 05/20/21 Unknown Rx syringe with needle 3 mL 22 gauge #6 ea 09/15/23 Unknown Rx x 1 doxepin 10 mg capsule 10 mg PO QHS PRN PRN sleep 11/05/23 Unknown History metformin 1,000 mg tablet 1,000 mg PO BID 11/05/23 Unknown History lisinopril 5 mg tablet 5 mg PO DAILY #90 tabs 02/22/24 Unknown Rx acetaminophen 325 mg capsule 650 mg PO Q6H PRN pain 08/15/24 Unknown History albuterol 90 mcg/actuation aerosol 180 mcg inhalation 4X/DAY PRN PRN 08/15/24 Unknown History inhaler shortness of breath or wheezing benzonatate 100 mg capsule 100 mg PO TID PRN cough 08/15/24 Unknown History ipratropium 0.5 mg-albuterol 3 mg 3 ml inhalation Q4H PRN shortness 08/15/24 Unknown History (2.5 mg base)/3 mL nebulization of breath or wheezing soln carvedilol 3.125 mg tablet 3.125 mg PO BID 1 month #60 tabs 09/09/24 Unknown Rx spironolactone 50 mg tablet 50 mg PO QDAY 1 month #30 tabs 09/09/24 Unknown Rx levothyroxine 100 mcg tablet 100 mcg PO DAILY #90 tabs 11/03/24 Unknown Rx testosterone enanthate 200 mg/mL 200 mg IM .COMPLEX #6 mL 11/03/24 Unknown Rx intramuscular oil furosemide 40 mg tablet (Lasix) 40 mg PO QAM #30 tabs 11/21/24 Unknown Rx rifaximin 550 mg tablet (Xifaxan) 550 mg PO BID PRN loose stool 11/21/24 Unknown History Allergy/AdvReac Type Severity Reaction Status Date / Time Bleach (Sodium Hypochlorite) Allergy Mild RASH Verified 11/21/24 14:27 piperacillin Allergy Unknown Verified 11/21/24 14:27 vancomycin Allergy Unknown Verified 11/21/24 14:27 latex AdvReac Mild RASH Verified 11/21/24 14:27 Family History Other Anesthesia complication BLOOD CLOT Colon cancer Diabetes Hormone deficiency Hypertension Surgical History (Updated 11/21/24 @ 14:36 by Angelica Santos) History of surgery History of cystoscopy History of wisdom tooth extraction History of cholecystectomy History of colonoscopy History of esophagogastroduodenoscopy (EGD) History of orchiectomy, bilateral Social History Smoking Status: Former smoker Tobacco: How many years used: 2 alcohol intake: current alcohol intake frequency: a few times a month substance use type: does not use Audit: Pertinent Findings Pertinent Findings EKG Perinent findings: 06/08/2014. Normal sinus rhythm. Inferior infarct, age undetermined. Recommendation Anesthesia Recommendation Anesthesia recommendation: F/U recommended (Patient needs a repeat twelve-lead EKG on day of surgery.)
[2024-11-24] VITALS (9 sets, daily range): BP systolic 97–117; BP diastolic 58–70; PULSE 85–95; RESP 16–18; TEMP 36.3–36.4; O2SAT 95–98; BMI 31.8
--- OUTSIDE RECORDS SUMMARY | 2024-11-24 07:45 | XMS RPT_ITS | CCD ---
Author Organization [facility] Care Team Providers Care Mailing Manager Name Role Phone Julián Urias MD Primary Care Provider Dr. Paul Urias Primary Care Provider [phone] Dr. Paul Urias Referring Provider Dr. Raad Luna Attending Provider Julián Urias MD Primary Care Provider Julián Urias MD Primary Care Provider Julián Urias MD Primary Care Provider Keely SMILEY, [facility] Unavailable Odell SMILEY, aRiner Unavailable Julián Urias MD Primary Care Provider Podlogar HOTHOUSE WORKER.Marli MCCLENDON Unavailable [place] HOTHOUSE WORKER.Aury MCCLENDON Unavailable [place] HOTHOUSE WORKER.Aury MCCLENDON Unavailable Dr. Paul Urias MD Primary Care Provider Dr. Paul Urias MD Referring Provider [phone] Juancarlos SERVICE ORDER EXPEDITER-CPadmini Attending Provider Juancarlos SERVICE ORDER EXPEDITER-CPadmini Referring Provider [place] HOTHOUSE WORKER.Aury MCCLENDON Unavailable Juancarlos SERVICE ORDER EXPEDITER-CPadmini Other Provider Shane BOUDREAUX-CAnahy Attending Provider Silvio SMILEY, Dr. De Souza Attending Provider Ap Anguiano Unavailable Dr. Raad Luna MD Attending Provider PODLOGAR, MARLI Attending Unavailable BURSLEY, CHRISTOPHER B Primary Care Unavailab le BURSLEY, CHRISTOPHER B Primary Care Unavailab le LEVI, KRYSTIN Referring Unavailable BURSLEY, CHRISTOPHER B Primary Care Unavailab le LEVI, KRYSTIN Attending Unavailable BURSLEY, CHRISTOPHER B Primary Care Unavailab le PODLOGAR, MARLI Attending Unavailable BURSLEY, CHRISTOPHER B Primary Care Unavailab le BURSLEY, CHRISTOPHER B Primary Care Unavailab le [facility] Referring Unavailable JANET ORTIZ Attending Unavailabl e BURSLEY, CHRISTOPHER B Primary Care Unavailab le BURSLEY, CHRISTOPHER B Primary Care Unavailab le DEXTER WONG Attending Unavailable BURSLEY, CHRISTOPHER B Primary Care Unavailab le PODLOGAR, MARLI Referring Unavailable BURSLEY, CHRISTOPHER B Primary Care Unavailab le PODLOGAR, MARLI Referring Unavailable BURSLEY, CHRISTOPHER B Primary Care Unavailab le BURSLEY, CHRISTOPHER B Primary Care Unavailab le PODLOGAR, MARLI Referring Unavailable JuancarlosPadmini Referring Unavailable Bursley, Paul Primary Care Unavailable Padmini Bauer Attending Unavailable JuancarlosPadmini Referring Unavailable Bursley, Paul Primary Care Unavailable JuancarlosPadmini Attending Unavailable Bursley, Paul Primary Care Unavailable Bursley, Paul Referring Unavailable JuancarlosPadmini Attending Unavailable Raad Luna Attending Unavailable Bursley, Paul Referring Unavailable Bursley, Paul Primary Care Unavailable Bursley, Paul Primary Care Unavailable [facility] Attending Unavailable Bursley, Paul Referring Unavailable JuancarlosPadmini Referring Unavailable Bursley, Paul Primary Care Unavailable JuancarlosPadmini Consulting Unavailable Anahy Lynn Attending Unavailable Bursley, Paul Referring Unavailable Bursley, Paul Primary Care Unavailable FriendYomi Attending Unavailable Bursley, Paul Primary Care Unavailable FriendYomi Attending Unavailable JuancarlosPadmini Referring Unavailable Bursley, Paul Primary Care Unavailable JuancarlosPadmini Attending Unavailable Allergies Allergy Classification Reported Allergen(s) Allergy Type Date of Onset Reaction(s) Facility (20 sources) Hypochlorite; Translations: [SODIUM HYPOCHLORITE SOLUTION] Drug Allergy 05-18-2020 [facility] (20 sources) Latex; Translations: [LATEX] Drug Allergy 05-18-2020 [facility] (20 sources) Piperacillin; Translations: [PIPERACILLIN] Drug Allergy 08-25-2007 [facility] (20 sources) Vancomycin; Translations: [VANCOMYCIN] Drug Allergy 08-25-2007 [facility] (1 source) Latex Drug allergy (disorder) 11-21-2024 [facility] (1 source) Piperacillin Drug Allergy 11-21-2024 [facility] (1 source) Vancomycin Drug Allergy 11-21-2024 [facility] (1 source) Bleach (Sodium Hypochlorite) Drug allergy (disorder) 11-21-2024 [facility] Medications Current Medications Medication Drug Class(es) Dates Sig (Normalized) Sig (Original) ACCU-CHEK GUIDE ME GLUCOSE MTR (20 sources) Start: 03-06-2021 ACCU-CHEK GUIDE ME GLUCOSE MTR USE TO TEST BLOOD SUGAR 03/06/2021 Active Start: 03-06-2021 ACCU-CHEK GUID E ME GLUCOSE MTR USE TO TEST BLOOD SUGAR 0 03/06/2021 Suspended Start: 03-06-2021 ACCU-CHEK GUID E ME GLUCOSE MTR USE TO TEST BLOOD SUGAR 0 03/06/2021 Active Comment on above: USE TO TEST BLOOD SYKES GAR acetaminophen 325 mg oral capsule (20 sources) Start: take 2 capsules by mouth every six hours as needed Acetaminophen 325 mg capsule Active 650 mg PO EVERY 6 HOURS as needed August 15, 2024 12:00am Start: 07-17-2021 take 2 tablets by [facility] every six hours as needed acetaminophen (TYLENOL) 325 mg tablet Take 2 tablets by mouth every 6 hours as needed for pain. 07/17/2021 Active Comment on above: Take 2 tablets by [facility] every 6 hours as needed for pain. 200 actuat albuterol 0.09 mg/actuat metered dose inhaler (20 sources) beta2-Adrenergic Agonist Start: take 1 puff(s) by inhalation once daily for wheezing ALBUTEROL 90 MCG/ACTUATION AEROSOL INHALER Indications: Cough Inhale two(2) puffs four(4) times a day for wheezing and shortness of breath. 1 0 01/11/2009 Active Comment on above: Inhale two(2) puffs four(4) times a day for wheezing and shortness of breath. albuterol 0.833 mg/ml / ipratropium bromide 0.167 mg/ml inhalation solution (20 sources) Anticholinergic, beta2-Adrenergic Agonist Start: take 1 mL by inhalation every four hours as needed Ipratropium-Albutero l 0.5 mg-3 mg(2.5 mg base)/3 mL solution for nebulization Active 3 mL INHALATION Q4H as needed August 15, 2024 12:00am Start: 10-10-2019 End: 06-20-2024 take 3 mL by inhalation every four hours as needed for wheezing ipratropium-albuterol (DUONEB) 0.5 mg-3 mg(2.5 mg base)/3 mL nebu Indications: Acute cough Inhale 3 mL as instructed every 4 hours as needed (wheezing). Use over 5-15minutes per nebulizer. 50 each 1 06/20/2024 Active Comment on above: Inhale 3 mL as instr ucted every 4 hours as needed (wheezing). Use over 5-15minutes per nebulizer. Albuterol 90 mcg/actuation aerosol (6 sources) Start: 08-16-19 take 180 ug by inhalation four times daily as needed Albuterol 90 mcg/actuation aerosol Active 180 ug INHALATION .QID as needed August 15, 2024 12:00am atorvastatin 10 mg oral tablet (20 sources) HMG-CoA Reductase Inhibitor Start: 03-06-19 End: 04-23-19 take 1 tablet by mouth once daily Atorvastatin 10 mg tablet Active 10 mg PO DAILY 1 May 20, 2021 12:00am Comment on above: Take 1 tablet by meghana th daily at bedtime. For cholesterol. benzonatate 100 mg oral capsule (20 sources) Non-narcotic Antitussive Start: 06-21-19 take 1 capsule by mouth three times daily as needed Benzonatate 100 mg capsule Active 100 mg PO THREE TIMES A DAY as needed August 15, 2024 12:00am Start: 09-11-2022 End: 09-10-2023 take 1 capsule by mouth every eight hours as needed benzonatate (TESSALON PERLES) 100 mg capsule Take 1 capsule by mouth three times daily as needed for cough. 15 capsule 09/11/2022 09/10/2023 Discontinued (Course of therapy completed) Comment on above: Take 1 capsule by [facility] three times daily as needed for cough. carvedilol 3.125 mg oral tablet (1 source) alpha-Adrenergic Hina, beta-Adrenergic Hina Start: 09-09-2024 take 1 tablet by mouth twice daily at mealtime Carvedilol 3.125 mg tablet Active 3.125 mg PO TWICE A DAY 60 30 2 September 09, 2024 12:00am must administer with a meal/food CPAP (20 sources) Start: 01-10-2020 CPAP Indications: Obstructive sleep apnea (adult) (pediatric) Patient would like to change DME closer to home. Needs mask and supplies. Current PAP device only 3 months old. Need download from device. Lifetime supplies. 1 Device 01/10/2020 Suspended Start: 01-10-2020 CPAP Indicatio ns: Obstructive sleep apnea (adult) (pediatric) Patient would like to change DME closer to home. Needs mask and supplies. Current PAP device only 3 months old. Need download from device. Lifetime supplies. 1 Device 01/10/2020 Active Comment on above: Patient would like t o change DME closer to home. Needs mask and supplies. Current PAP device only 3 months old. Need download from device. Lifetime supplies. doxepin hydrochloride 10 mg oral capsule (20 sources) Tricyclic Antidepressant Start: 07-05-19 End: 09-01-19 25 take 1 capsule by mouth once daily as needed Doxepin 10 mg capsule Active 10 mg PO daily as needed November 05, 2023 11:07am Start: 11-26-2021 End: 05-25-2022 take 1 capsule by mouth once daily at bedtime doxepin capsule 10 mg Take 1 capsule by mouth daily at bedtime. 30 capsule 5 11/26/2021 05/25/2022 Active Start: 05-18-2020 End: 11-05-2023 Doxepin 10 mg capsule Discon tinued NMA PO May 18, 2020 12:00am November 05, 2023 11:08am Start: 05-18-2020 End: 10-11-2021 take 1 capsule by mouth once daily at bedtime doxepin capsule 10 mg Take 1 capsule by mouth daily at bedtime. 30 capsule 5 04/14/2021 10/11/2021 Active Comment on above: Take 1 capsule by mo [facility] daily at bedtime. doxycycline hyclate 100 mg oral tablet (2 sources) Tetracycline-clas s Drug Start: 06-21-19 End: 06-28-19 take 1 tablet by mouth twice daily doxycycline (VIBRA-TABS) 100 mg tablet Take 1 tablet by mouth two times a day for 7 days. 14 tablet 06/20/2024 06/27/2024 Active 0.8 ml enoxaparin sodium 150 mg/ml prefilled syringe (20 sources) Low Molecular Weight Heparin Start: 07-18-19 End: 07-23-19 inject 0.4 mL by subcutaneous injection once daily enoxaparin (LOVENOX) 40 mg/0.4 mL Inject 0.4 mL subcutaneously once daily for 5 days. 2 mL 0 07/17/2021 07/22/2021 Active Start: 10-03-2020 End: 10-25-2024 enoxaparin (LOVENOX) 120 mg/ 0.8 mL injection Inject 111 mg subcutaneously every 12 hours. 60 each 5 10/25/2024 Active Start: 06-07-2014 Enoxaparin 120 MG/0.8 ML syringe Active 120 mg SC DAILY June 07, 2014 12:00am Comment on above: Inject 0.7 mL subcut aneously every 12 hours. Inject 0.4 mL subcut aneously once daily for 5 days. furosemide 40 mg oral tablet (5 sources) Loop Diuretic Start: 08-16-19 take 1 tablet by mouth once daily in the morning Furosemide (Lasix) 40 mg tablet Active 40 mg PO EVERY MORNING 30 August 15, 2024 12:00am take every morning levoFLOXacin 750 mg oral tablet (3 sources) Quinolone Antimicrobial Start: 07-16-19 End: 07-17-19 levoFLOXacin (LEVAQUIN) 750 mg tablet Take 1 tablet by mouth as directed for 1 day prior to HOPS procedure. 1 tablet 0 07/15/2021 07/16/2021 Suspended Comment on above: Take 1 tablet by meghana as directed for 1 day. prior to HOPS procedure. Take 1 tablet by meghana as directed for 1 day prior to HOPS procedure. metFORMIN hydrochloride 1000 mg oral tablet (20 sources) Biguanide Start: 09-07-19 End: 10-04-19 take 1 tablet by mouth twice daily Metformin 1,000 mg tablet Active 1000 mg PO TWICE A DAY November 05, 2023 12:00am Start: 08-03-2020 End: 11-05-2023 take 1 tablet by mouth twice daily Metformin 500 mg tablet Discontinued 500 mg PO TWICE A DAY 1 May 20, 2021 12:00am November 05, 2023 11:08am Comment on above: [facility]. . [facility] two times a day with meals. . rifAXIMin 550 mg oral tablet (5 sources) Rifamycin Antibacterial Start: 025 take 1 tablet by mouth twice daily Rifaximin (Xifaxan) 550 mg tablet Active 550 mg PO TWICE A DAY 60 2 August 15, 2024 12:00am spironolactone 50 mg oral tablet (6 sources) Aldosterone Antagonist Start: 025 take 5 tablets by mouth once daily Spironolactone 50 mg tablet Active 50 mg PO daily 30 30 2 September 09, 2024 3:10pm Hold for serum potassium more than 5.0 Start: 08-15-2024 End: 09-09-2024 take 1 tablet by mouth once daily in the morning Spironolactone (Aldactone) 25 mg tablet Discontinued 25 mg PO daily 30 1 August 15, 2024 12:00am September 09, 2024 3:21pm take every morning sulfamethoxazole 400 mg / trimethoprim 80 mg oral tablet (2 sources) Dihydrofolate Reductase Inhibitor Antibacterial, Sulfonamide Antimicrobial Start: 07-17-2021 End: 07-24-2021 sulfamethoxazole-trimethopri m (BACTRIM) 400-80 mg per tablet Take 2 tablets by mouth once daily for 7 days. Take two tablets daily for 3 days, then begin remainder of course two days before planned baum catheter removal 14 tablet 0 07/17/2021 07/24/2021 Active Comment on above: Take 2 tablets by mo [facility] once daily for 7 days. Take two tablets daily for 3 days, then begin remainder of course two days before planned baum catheter removal testosterone enanthate 200 mg/ml injectable solution (20 sources) Androgen Start: 06-22-2020 End: 11-03-2024 inject 200 mg by intramuscula r injection every other week Testosterone Enanthate 200 mg/mL oil Active 200 mg IM .COMPLEX 6 November 03, 2024 11:19am 200 mg IM every 2 weeks; as a single dose Start: 06-22-2020 End: 02-07-2021 inject 200 mg by intramuscular injection every other week Testosterone Enanthate Active 200 MG IM .COMPLEX 6 February 07, 2021 1:50pm 200 mg IM every 2 weeks; as a single dose Start: 04-10-2016 End: 05-18-2020 Testosterone Cypionate 200 M G/ML kit Discontinued 200 mg IM April 10, 2016 1:00am May 18, 2020 9:29am PT TAKES IT TWICE A MONTH Start: 04-10-2016 End: 05-18-2020 Testosterone Cypionate Discontinued 200 MG IM April 10, 2016 1:00am May 18, 2020 9:29am PT TAKES IT TWICE A MONTH valACYclovir 1000 mg oral tablet (1 source) Herpesvirus Nucleoside Analog DNA Polymerase Inhibitor, Herpes Simplex Virus Nucleoside Analog DNA Polymerase Inhibitor, Herpes Zoster Virus Nucleoside Analog DNA Polymerase Inhibitor Start: 10-23-2021 End: 10-30-2021 take 1 tablet by mouth three times daily valACYclovir (VALTREX) 1 gram Indications: Herpes zoster without complication Take 1 tablet by mouth three times daily for 7 days. 21 tablet 0 10/23/2021 10/30/2021 Active Comment on above: Take 1 tablet by meghana three times daily for 7 days. Completed/Discontinued Medications Medication Drug Class(es) Dates Sig (Normalized) Sig (Original) Catheter (BARD COUDE TIP CATHETER) 16 Fr Misc Misc (20 sources) Start: 04-25-2010 End: 09-10-2023 Catheter (BARD COUDE TIP CATHETER) 16 Fr Misc Misc to be used as needed 1 Each 3 04/25/2010 09/10/2023 Discontinued (Course of therapy completed) Start: 04-25-2010 Catheter (BARD COUDE TIP CATHETER) 16 Fr Misc Misc to be used as needed 1 Each 3 04/25/2010 Suspended Start: 04-25-2010 Catheter (BARD COUDE TIP CATHETER) 16 Fr Misc Misc to be used as needed 1 Each 3 04/25/2010 Active Comment on above: to be used as needed chlorhexidine gluconate 1.2 mg/ml mouthwash (5 sources) Start: 07-30-2021 End: 08-09-2021 Chlorhexidine Gluconate (PERIDEX) 0.12 % solution Use 15 mL as instructed twice daily for 10 days. Rinse around mouth for 30 seconds then expectorate 300 mL 0 07/30/2021 08/09/2021 Start: 07-17-2021 End: 07-27-2021 Chlorhexidine Gluconate (PER IDEX) 0.12 % solution Use 15 mL as instructed twice daily for 10 days. Rinse around mouth for 30 seconds then expectorate 300 mL 0 07/17/2021 07/27/2021 Active Comment on above: Use 15 mL as instruc yanna twice daily for 10 days. Rinse around mouth for 30 seconds then expectorate cholecalciferol 1.25 mg oral capsule (20 sources) Vitamin D Start: 023 End: 025 take 1 capsule by mouth every week Cholecalciferol (Vitamin D3) 1,250 mcg (50,000 unit) capsule Discontinued 1250 ug PO EVERY WEEK 4 April 21, 2022 1:00am August 15, 2024 7:16am Start: 06-13-2019 End: 09-10-2023 take 1 capsule by mouth every week cholecalciferol, Vitamin D3, (VITAMIN D3) 1,250 mcg (50,000 unit) cap capsule Indications: Vitamin D deficiency Take 1 capsule by mouth one time a week. 12 capsule 06/13/2019 09/10/2023 Discontinued (Course of therapy completed) Comment on above: Take 1 capsule by [facility] one time a week. COMPOUNDED PRESCRIPTION (20 sources) Start: 04-25-2010 End: 09-10-2023 COMPOUNDED PRESCRIPTION Night bag for Baum catheter 1 bag 11 04/25/2010 09/10/2023 Discontinued (Course of therapy completed) Start: 04-25-2010 COMPOUNDED PRE SCRIPTION Night bag for Baum catheter 1 bag 11 04/25/2010 Suspended Start: 04-25-2010 COMPOUNDED PRE SCRIPTION Night bag for Baum catheter 1 bag 11 04/25/2010 Active Comment on above: Night bag for Baum catheter docusate sodium 100 mg oral capsule (20 sources) Start: 01-14-2022 End: 09-10-2023 take 1 capsule by mouth twice daily docusate sodium (COLACE) 100 mg capsule Take 1 capsule by mouth twice daily. 60 capsule 01/14/2022 09/10/2023 Discontinued (Course of therapy completed) Start: 07-17-2021 End: 08-16-2021 take 1 capsule by mouth twice daily docusate sodium (COLACE) 100 mg capsule Take 1 capsule by mouth twice daily. 60 capsule 0 07/17/2021 08/16/2021 Comment on above: Take 1 capsule by [facility] twice daily. enteric contrast (will be provided with radiology test) (1 source) Start: 05-23-2022 End: 05-24-2022 enteric contrast (will be provided with radiology test) Indications: Splenomegaly, not elsewhere classified , Hepatic steatosis , Thrombocytopenia (HCC) , Lower abdominal pain For CT ABD/PEL W IVCON Routine order Administer, As Directed One Time Only, via Oral, Rectal, both Oral and Rectal, Enteric Tube, Stoma or Indwelling Catheter, Enteric Contrast as designated per enteric contrast guidelines 1 Each 0 05/23/2022 05/24/2022 Comment on above: For CT ABD/PEL W IVC ON Routine order Administer, As Directed One Time Only, via Oral, Rectal, both Oral and Rectal, Enteric Tube, Stoma or Indwelling Catheter, Enteric Contrast as designated per enteric contrast guidelines Irrigation Set irst (20 sources) Start: 11-29-2019 End: 09-10-2023 Irrigation Set irst Indications: Chronic interstitial cystitis 1 kit to flush SPT as needed 10 Each 3 11/29/2019 09/10/2023 Discontinued (Course of therapy completed) Start: 11-29-2019 Irrigation Set irst Indications: Chronic interstitial cystitis 1 kit to flush SPT as needed 10 Each 3 11/29/2019 Suspended Start: 11-29-2019 Irrigation Set irst Indications: Chronic interstitial cystitis 1 kit to flush SPT as needed 10 Each 3 11/29/2019 Active Comment on above: 1 kit to flush SPT a s needed iv contrast (will be provided with radiology test) (4 sources) Start: 08-10-2024 End: 08-11-2024 iv contrast (will be provided with radiology test) Indications: Cirrhosis, nonalcoholic (HCC) , Splenomegaly , Abdominal swelling, generalized CT ABD/PEL -Inject, intravenously, once for 1 dose.No IV access, insert saline lock prior to the beginning of sedation, infusion, injection of imaging exam. Discontinue saline lock post exam. If Pt. has a central line or IVAD, may access for administration according to line specific nursing protocol. Once exam is complete flush line and de-access according to line specific nursing protocol in the CT contrast administration guidelines link. 1 each 08/10/2024 08/11/2024 Start: 08-10-2024 End: 08-11-2024 iv contrast (will be provide d with radiology test) Indications: Cirrhosis, nonalcoholic (HCC) , Splenomegaly , Abdominal swelling, generalized CT ABD/PEL -Inject, intravenously, once for 1 dose.No IV access, insert saline lock prior to the beginning of sedation, infusion, injection of imaging exam. Discontinue saline lock post exam. If Pt. has a central line or IVAD, may access for administration according to line specific nursing protocol. Once exam is complete flush line and de-access according to line specific nursing protocol in the CT contrast administration guidelines link. 1 each 08/10/2024 08/11/2024 Active Start: 05-23-2022 End: 05-24-2022 iv contrast (will be provide d with radiology test) Indications: Splenomegaly, not elsewhere classified , Hepatic steatosis , Thrombocytopenia (HCC) , Lower abdominal pain CT ABD/PEL -Inject, intravenously, once for 1 dose.No IV access, insert saline lock prior to the beginning of sedation, infusion, injection of imaging exam. Discontinue saline lock post exam. If Pt. has a central line or IVAD, may access for administration according to line specific nursing protocol. Once exam is complete flush line and de-access according to line specific nursing protocol in the CT contrast administration guidelines link. 1 Each 0 05/23/2022 05/24/2022 Comment on above: CT ABD/PEL -Inject, intravenously, once for 1 dose.No IV access, insert saline lock prior to the beginning of sedation, infusion, injection of imaging exam. Discontinue saline lock post exam. If Pt. has a central line or IVAD, may access for administration according to line specific nursing protocol. Once exam is complete flush line and de-access according to line specific nursing protocol in the CT contrast administration guidelines link. levothyroxine sodium 0.1 mg oral tablet (20 sources) l-Thyroxine Start: 05-19-19 End: 11-04-19 take 1 tablet by mouth once daily Levothyroxine 100 mcg tablet Discontinued 100 ug PO DAILY 90 0 September 15, 2023 8:20am November 05, 2023 11:19am Comment on above: Take 100 mcg by mout h once daily. Take 1 tablet by meghana th once daily. lisinopril 5 mg oral tablet (20 sources) Angiotensin Converting Enzyme Inhibitor Start: 03-06-19 End: 10-04-19 take 1 tablet by mouth once daily Lisinopril 5 mg tablet Discontinued 5 mg PO DAILY 1 May 20, 2021 12:00am February 22, 2024 4:30pm Comment on above: Take 1 tablet by meghana th once daily. oxybutynin chloride 5 mg oral tablet (18 sources) Cholinergic Muscarinic Antagonist Start: 01-15-20 End: 09-10-19 take 1 tablet by mouth every eight hours as needed oxybutynin (DITROPAN) 5 mg tablet Take 1 tablet by mouth three times daily as needed (bladder spasm) for up to 7 days. Stop taking 36 hours before your baum catheter removal. 60 tablet 01/14/2022 09/10/2023 Discontinued (Course of therapy completed) Comment on above: Take 1 tablet by meghana th three times daily as needed (bladder spasm) for up to 7 days. Stop taking 36 hours before your baum catheter removal. sodium chloride 0.154 meq/ml irrigation solution (20 sources) Start: 11-29-19 End: 09-10-19 sodium chloride 0.9 % IRRIGATION Indications: Chronic interstitial cystitis Use irrigation solution to flush SPT 1000 mL 3 11/29/2019 09/10/2023 Discontinued (Course of therapy completed) Comment on above: Use irrigation solut ion to flush SPT Syringe Disposable, Irrigation (IRRIGATION SYRINGE) syrg (20 sources) Start: 11-29-19 End: 09-10-19 Syringe Disposable, Irrigation (IRRIGATION SYRINGE) syrg Indications: Chronic interstitial cystitis Use to flush SPT with Irrigation fluid 10 Syringe 3 11/29/2019 09/10/2023 Discontinued (Course of therapy completed) Start: 11-29-2019 Syringe Dispos able, Irrigation (IRRIGATION SYRINGE) syrg Indications: Chronic interstitial cystitis Use to flush SPT with Irrigation fluid 10 Syringe 3 11/29/2019 Suspended Start: 11-29-2019 Syringe Dispos able, Irrigation (IRRIGATION SYRINGE) syrg Indications: Chronic interstitial cystitis Use to flush SPT with Irrigation fluid 10 Syringe 3 11/29/2019 Active Comment on above: Use to flush SPT wit h Irrigation fluid Urinary Bag (URINARY LEG BAG) Misc Misc (20 sources) Start: 04-25-2010 End: 09-10-2023 Urinary Bag (URINARY LEG BAG) Misc Misc Use as needed 1 Each 04/25/2010 09/10/2023 Discontinued (Course of therapy completed) Start: 04-25-2010 Urinary Bag (U RINARY LEG BAG) Misc Misc Use as needed 1 Each 04/25/2010 Suspended Start: 04-25-2010 Urinary Bag (U RINARY LEG BAG) Misc Misc Use as needed 1 Each 04/25/2010 Active Comment on above: Use as needed Problems Active Problems Problem Classification Problem Date Documented Da te Episodic/Chronic Coagulation and hemorrhagic disorders (20 sources) Lupus anticoagulant disorder; Translations: [Lupus anticoagulant syndrome] Onset: 7 Chronic Complication of device; implant or graft (7 sources) Mechanical complication of suprapubic catheter; Translations: [Breakdown (mechanical) of cystostomy catheter, initial encounter] 07-29-2019 Episodic Complications of surgical procedures or medical care (6 sources) Stricture of male urethra following procedure; Translations: [Postprocedural urethral stricture, male, unspecified] Episodic Deficiency and other anemia (1 source) Anemia; Translations: [Anemia, unspecified] 10-24-2024 Episodic Deficiency and other anemia (1 source) Anemia, unspecified; Translations: [Anemia, unspecified type] Onset: 5 Episodic Diabetes mellitus with complications (2 sources) Type 2 diabetes mellitus with hyperglycemia; Translations: [Type 2 diabetes mellitus with hyperglycemia, 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 (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)] Onset: 5 Chronic Diabetes mellitus without complication (20 sources) Type 2 diabetes mellitus; Translations: [Type 2 diabetes mellitus without complications] Onset: 1 02-01-2021 Chronic Diseases of white blood cells (20 sources) Neutropenia; Translations: [Neutropenia, unspecified] Onset: 4 Chronic Disorders of lipid metabolism (6 sources) Hyperlipidemia; Translations: [Hyperlipidemia, unspecified] Onset: 5 02-11-2023 Chronic Esophageal disorders (20 sources) Esophageal varices without bleeding; Translations: [Secondary esophageal varices without bleeding] Onset: 2 Chronic Infective arthritis and osteomyelitis (except that caused by tuberculosis or sexually transmitted disease) (1 source) Osteomyelitis, unspecified; 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: 5 Chronic Miscellaneous mental health disorders (7 sources) Primary insomnia; Translations: [Primary insomnia] Onset: 5 Chronic Mood disorders (20 sources) Recurrent major depressive episodes; Translations: [Major depressive disorder, recurrent, unspecified] Onset: 5 01-28-2010 Chronic Nutritional deficiencies (20 sources) Vitamin D deficiency; Translations: [Vitamin D deficiency, unspecified] Onset: 5 07-26-2011 Chronic Other aftercare (1 source) Drug therapy finding; Translations: [residential (current) use of anticoagulants] Episodic Other bone disease and musculoskeletal deformities (1 source) X-ray evidence of poor mineralization; Translations: [Other specified disorders of bone density and structure, unspecified site] Episodic Other bone disease and musculoskeletal deformities (3 sources) Other specified disorders of bone density and structure, unspecified site; Translations: [Disorder of bone and cartilage, unspecified] Onset: 5 Episodic Other bone disease and musculoskeletal deformities (6 sources) Osteopenia; Translations: [Other specified disorders of bone density and structure, unspecified site] 06-23-2020 Episodic Other congenital anomalies (20 sources) Chromosomal disorder; 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, unspecified] Onset: 0 01-28-2010 Chronic Other diseases of bladder and urethra (2 sources) Vesicocutaneous fistula; 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 fistula, not elsewhere classified] Chronic Other endocrine disorders (20 sources) Testicular hypofunction; Translations: [Testicular hypofunction] Onset: 1 03-05-2021 Chronic Other endocrine disorders (7 sources) Male hypogonadism; Translations: [Testicular hypofunction] 03-19-2021 Chronic Other endocrine disorders (2 sources) Testicular hypofunction; Translations: [Other testicular hypofunction] Onset: 5 Chronic Other gastrointestinal disorders (20 sources) Splenomegaly; Translations: [Splenomegaly, not elsewhere classified] Onset: 0 03-11-2019 Episodic Other gastrointestinal disorders (4 sources) Swollen abdomen; Translations: [Generalized intra-abdominal and pelvic swelling, mass and lump] 08-10-2024 Episodic Other gastrointestinal disorders (1 source) Dark stools; Translations: [Other fecal abnormalities] 08-10-2024 Episodic Other gastrointestinal disorders (2 sources) Occult blood in stools; Translations: [Other fecal abnormalities] 08-12-2024 Episodic Other gastrointestinal disorders (17 sources) Ascites; Translations: [Other ascites] 08-15-2024 Episodic Other gastrointestinal disorders (2 sources) Other ascites; Translations: [Other ascites] Onset: 5 Episodic Other inflammatory condition of skin (1 source) Pustulosis palmaris et plantaris; 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: 5 Chronic Other injuries and conditions due to external causes (7 sources) H/O: vertebral fracture; Translations: [Personal history of (healed) traumatic fracture] 05-18-2020 Episodic Other liver diseases (20 sources) Steatosis of liver; Translations: [Fatty (change of) liver, not elsewhere classified] Onset: 0 03-11-2019 Chronic Other liver diseases (9 sources) Cirrhosis - non-alcoholic; Translations: [Unspecified cirrhosis of liver] Chronic Other liver diseases (16 sources) Portal hypertension; Translations: [Portal hypertension] Chronic Other liver diseases (4 sources) Cirrhosis of liver; Translations: [Unspecified cirrhosis of liver] Chronic Other liver diseases (15 sources) Unspecified cirrhosis of liver; Translations: [Esophageal varices in cirrhosis] Onset: 5 08-15-2024 Chronic Comment on above: Occult blood-positiv e stools, anemia, and thrombocytopenia suggest chronic GI blood loss, likely from portal hypertensive gastropathy or varices. Other liver diseases (1 source) Decompensated cirrhosis of liver 09-15-2024 Chronic Other liver diseases (1 source) Portal hypertension; Translations: [Portal hypertension] Onset: 5 Chronic Other liver diseases (15 sources) Decompensated cirrhosis of liver; Translations: [Hepatic failure, unspecified without coma] 08-15-2024 Episodic Other lower respiratory disease (12 sources) Dyspnea; Translations: [Shortness of breath] 03-25-2013 Episodic Other lower respiratory disease (2 sources) Cough; Translations: [Acute cough] 09-11-2022 Episodic Other lower respiratory disease (2 sources) Cough; Translations: [Acute cough] 06-20-2024 Episodic Other male genital disorders (7 sources) Pain in penis; Translations: [Other specified disorders of penis] 07-29-2019 Chronic Other nutritional; endocrine; and metabolic disorders (20 sources) Obesity; Translations: [Obesity, unspecified] Onset: 5 01-28-2010 Chronic Other nutritional; endocrine; and metabolic disorders (20 sources) Body mass index 30+ - obesity; Translations: [Obesity, unspecified] Onset: 9 07-30-2018 Chronic Other nutritional; endocrine; and metabolic disorders (20 sources) Obese class I; Translations: [Obesity, unspecified] Onset: 3 06-26-2022 Chronic Other screening for suspected conditions (not mental disorders or infectious disease) (8 sources) Patient encounter status; Translations: [Encounter for screening for other disorder] Onset: 5 Episodic Other upper respiratory infections (1 source) Upper respiratory infection; Translations: [Acute upper respiratory infection, unspecified] 09-11-2022 Episodic Residual codes; unclassified (20 sources) Obstructive sleep apnea syndrome; Translations: [Obstructive sleep apnea (adult) (pediatric)] Onset: 1 03-04-2021 Chronic Residual codes; unclassified (1 source) Obstructive sleep apnea (adult) (pediatric); Translations: [MARC (obstructive sleep apnea)] Onset: 2 Chronic Residual codes; unclassified (1 source) Insomnia; Translations: [Insomnia, unspecified] Episodic Residual codes; unclassified (3 sources) Past history of procedure; Translations: [Other specified postprocedural states] Episodic Residual codes; unclassified (7 sources) History of bilateral orchiectomy; Translations: [Acquired absence of other genital organ(s)] 05-18-2020 Episodic Thyroid disorders (20 sources) Hypothyroidism; Translations: [Hypothyroidism, unspecified] Onset: 2 03-05-2021 Chronic Unclassified (20 sources) Obesity; Translations: [Class 2 obesity with serious comorbidity and body mass index (BMI) of 35.0 to 35.9 in adult] Onset: 8 04-30-2017 Unclassified (1 source) Acute cough; Translations: [Acute cough] Onset: 5 Urinary tract infections (20 sources) Chronic interstitial cystitis; Translations: [Interstitial cystitis (chronic) without hematuria] Onset: 5 01-28-2010 Chronic Urinary tract infections (7 sources) Urinary tract infectious disease; Translations: [Urinary tract infection, site not specified] 03-26-2019 Episodic Viral infection (2 sources) Herpes zoster without complication; Translations: [Zoster without complications] Episodic Past or Other Problems Problem Classification Problem Date Documented Da te Episodic/Chronic Abdominal pain (14 sources) Lower abdominal pain; Translations: [Lower abdominal pain, unspecified] Onset: 5 Episodic Acquired foot deformities (20 sources) Acquired deformity of calcaneus; Translations: [Other acquired deformities of unspecified foot] Onset: 5 Resolved: 0 04-26-2009 Episodic Biliary tract disease (20 sources) Biliary calculus; Translations: [Calculus of gallbladder without cholecystitis without obstruction] Onset: 1 Resolved: 7 02-25-2021 Episodic Chronic obstructive pulmonary disease and bronchiectasis (20 sources) Mucopurulent chronic bronchitis; Translations: [Mucopurulent chronic bronchitis] Resolved: 2 03-05-2021 Chronic Diabetes mellitus without complication (20 sources) Prediabetes; Translations: [Prediabetes] Onset: 9 Resolved: 2 07-30-2018 Episodic Essential hypertension (20 sources) Essential hypertension; Translations: [Essential (primary) hypertension] Onset: 2 Resolved: 2 12-26-2021 Chronic Genitourinary symptoms and ill-defined conditions (20 sources) Blood in urine; Translations: [Hematuria, unspecified] Onset: 6 Resolved: 0 05-19-2011 Episodic Immunizations and screening for infectious disease (5 sources) Needs influenza immunization; Translations: [Encounter for immunization] Onset: 5 Episodic Open wounds of extremities (20 sources) Open wound of foot except toes with complication; Translations: [Unspecified open wound, unspecified foot, initial encounter] Onset: 7 Resolved: 9 02-02-2009 Episodic Other connective tissue disease (20 sources) Muscle weakness; Translations: [Muscle weakness (generalized)] Onset: 0 Resolved: 2 01-28-2010 Episodic Other connective tissue disease (20 sources) Disorder of Achilles tendon; Translations: [Achilles tendinitis, unspecified leg] Onset: 5 Resolved: 0 04-26-2009 Episodic Other connective tissue disease (1 source) SAPHO syndrome; 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: 5 Episodic Other diseases of bladder and urethra (20 sources) Intestinovesical fistula; Translations: [Vesicointestinal fistula] Onset: 6 Resolved: 9 02-02-2009 Chronic Other diseases of bladder and urethra (20 sources) 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; Translations: [Post-traumatic urethral stricture, male, meatal] Onset: 9 02-10-2019 Episodic Other diseases of bladder and urethra (20 sources) Disorder of urethra; Translations: [Other specified disorders of urethra] Onset: 6 Resolved: 9 02-02-2009 Episodic Other gastrointestinal disorders (1 source) Generalized intra-abdominal and pelvic swelling, mass and lump; Translations: [Abdominal swelling, generalized] Onset: 5 Episodic Other gastrointestinal disorders (1 source) Splenomegaly, not elsewhere classified; Translations: [Splenomegaly] Onset: 0 Episodic Other gastrointestinal disorders (1 source) Other fecal abnormalities; Translations: [Dark stools] Onset: 5 Episodic Other hematologic conditions (20 sources) Secondary polycythemia; Translations: [Secondary polycythemia] Onset: 1 07-16-2010 Episodic Other liver diseases (2 sources) Hepatic failure, unspecified without coma; Translations: [Decompensated cirrhosis (HCC)] Onset: 5 Episodic Other lower respiratory disease (1 source) Shortness of breath; Translations: [Shortness of breath] Onset: 5 Episodic Other male genital disorders (20 sources) Pain in scrotum ; Translations: [Scrotal pain] Onset: 0 01-28-2010 Episodic Other male genital disorders (20 sources) Other specified disorders of the male genital organs; Translations: [Other specified disorders of male genital organs] Onset: 7 Resolved: 0 04-26-2009 Episodic Other skin disorders (20 sources) Disorder of skin and/or subcutaneous tissue; Translations: [Disorder of the skin and subcutaneous tissue, unspecified] Onset: 1 04-20-2010 Episodic Other skin disorders (1 source) Acne, unspecified; 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: 5 Episodic Paralysis (20 sources) Left hemiparesis; Translations: [Hemiplegia, unspecified affecting left nondominant side] Onset: 0 Resolved: 3 03-04-2021 Chronic Phlebitis; thrombophlebitis and thromboembolism (20 sources) H/O: Deep vein thrombosis; Translations: [Personal history of other venous thrombosis and embolism] Onset: 5 Resolved: 0 03-11-2019 Episodic Pleurisy; pneumothorax; pulmonary collapse (11 sources) Pleural effusion; Translations: [Pleural effusion, not elsewhere classified] Onset: 5 08-15-2024 Episodic Comment on above: possible hepatic hyd rothorax Pulmonary heart disease (20 sources) H/O: pulmonary embolus; Translations: [Personal history of pulmonary embolism] Onset: 8 07-13-2019 Episodic Residual codes; unclassified (20 sources) History of noncompliance with medication regimen; Translations: [Patient's other noncompliance with medication regimen] Onset: 0 03-11-2019 Episodic Spondylosis; intervertebral disc disorders; other back problems (20 sources) Low back pain; Translations: [Low back pain] Onset: 2 Resolved: 2 07-26-2011 Episodic Unclassified (20 sources) ASA CLASS III Onset: 6 Resolved: 0 04-26-2009 Unclassified (6 sources) BLOOD TRANSFUSION 09-26-2021 Results Test Name Value Interpretation Reference Range Facility MR/Ying 11-22-2024 MR/JULIA [facility] Medical Records Department [address] [place] [address] PAT - Anesthesia 11/22/24 1503 MR#: [id number] Acct: [id number] Name: HAL BLANCAS Rep #: [id number] : 1970 54 From: Roel Varela MD PCP: Dr. Paul Urias MD Status:PRE [facility] Y Race: C Location: EN Pre-Assessment Diagnosis/Proposed Procedure Planned Operative Procedure(s): EGD Anesthesia History Anesthesia History - target protection specialist: Anesthesia History - target protection specialist Hx Hospitalization No 11/21/24 14:37 Any Problems With Anesthesia No 11/21/24 14:37 Cholinesterase deficiency No 11/21/24 14:37 You/Your Family Experience No 11/21/24 14:37 fever (hyperthermia) with Relationship Recent Exposure to Contagious No 02/10/20 15:12 Disease Does patient have nerve Yes: SPINAL, PT STATES IT IS 11/21/24 14:37 stimulator NOT WORKING Patient instructed to have device shut off --Does patient have Pacemaker or ICD? When Was Last Pacemaker Check QUESTION #4 FULL TEXT: You/Your Family Experience fever (hyperthermia) with Anesthesia Last Oral Intake Last Oral intake: Last Oral Intake NPO since Meds taken in AM with sips of water? Meds patient instructed to take am of surgery PONV PONV - target protection specialist: PONV - target protection specialist Female No 11/21/24 14:37 HX of Motion Sickness No 11/21/24 14:37 HX of N/V After Surgery No 11/21/24 14:37 Non-Smoker Yes 11/21/24 14:37 Duration of Surgery greater No 11/21/24 14:37 than 60 minutes Number of Risk Factors 1 11/21/24 14:37 PONV Score Low Risk 11/21/24 14:37 Height Weight Height Weight: Anesthesia: Height Weight Height 6 ft 2 in 11/03/24 11:07 Respiratory Assessment Respiratory Assessment - target protection specialist: Respiratory Tract Infection Hx - target protection specialist Hx Respiratory Tract Infection No 11/21/24 14:37 STOP Sleep Apnea STOP Sleep Apnea - target protection specialist: STOP Sleep Apnea - target protection specialist Hx Hypertension Yes: PER PT, CONTROLLED ON 11/21/24 14:37 MEDS Hx Sleep Apnea Yes: cpap 11/21/24 14:37 CPAP Yes 11/21/24 14:37 BIPAP No 11/21/24 14:37 Do you snore loudly (louder than talking or can be heard Do you often feel tired/ fatigued/ sleepy during daytime? Has anyone observed you stop breathing during sleep? STOP Results Positive 11/21/24 14:37 QUESTION #5 FULL TEXT : Do you snore loudly (louder than talking or can be heard through closed doors)? Tobacco Use History Tobacco Use History - target protection specialist: Tobacco Use History - target protection specialist Tobacco Use Non-smoker 04/17/21 10:16 Smoking Status Former smoker 11/21/24 14:37 Hx Tobacco Use No 11/21/24 14:37 Years Smoking Packs Smoked per Day Smoking Cessation Date was No - quit smoking greater 11/21/24 14:37 within the last 15 years than 15 years ago Hx Smoking Cessation Date Hx Smoking Cessation No 11/21/24 14:37 Counseling Hematologic Medial History Hematologic Hx - target protection specialist: Hematologic Medical Hx - [employer] Hx of Blood Transfusion No 11/21/24 14:37 Hx of Transfusion in last 3 No 11/21/24 14:37 Months Date of Last Transfusion (if within last 3 months) Ever experience any problems No 11/21/24 14:37 with transfusion(s)? Specify any problems Hx of Preganancy in last 3 N/A 11/21/24 14:37 Months Nurse Filling Out Transfusion MGRIFFITH 11/21/24 14:37 Questions: Date: 11/21/24 11/21/24 14:37 Time: 14:40 11/21/24 14:37 Patient unable to answer at this time (ie. confused, unrespo /Reproduction History /Reproductive History - target protection specialist: /Reproductive Hx- target protection specialist Hx Now No 11/21/24 14:37 Gestational Age (in weeks): EDC: Hx Hx Para Hx Section SAB No 11/21/24 14:37 [facility] Medical History (Updated 11/21/24 @ 14:47 by Angelica Santos) Wears dentures Thyroid disease Fatty liver Easy bruising Difficulty chewing Hypertension Chronic cough Former smoker Sleep apnea CPAP (continuous positive airway pressure) dependence Shortness of breath on exertion Leg cramps History of echocardiogram History of irregular heartbeat Hepatomegaly Hematuria Embolism and thrombosis of unspecified site Esophageal varices DVT of popliteal vein Cirrhosis Chronic lower back pain Cholecystitis Calcified granuloma of lung Adjustment disorder with depressed mood Achilles tendon tear Obesity Diabetes Osteopenia determined by x-ray Lupus anticoagulant disorder Hypothyroidism (acquired) Male hypogonadism History of vertebral compression fracture Splenomegaly Vitamin deficiency (more content not included)... Normal [facility] CBC W Auto Differential pane l (Bld)on 11-09-2024 Anisocytosis Ql (Bld) Present Normal [facility] Comment on above: Order Comment: Speci men Type: BLOOD SPECIMENOrdering Facility: [facility] Address: [address] [place] [address] Performed By: #### 5 7021-8 ####[facility] HOSPITALA [id number] [address] LABORATORYCLIA [id number] [place] [address] [place] Basophils (Bld) [#/Vol] 0.04 10*3/uL Normal <0.11 [facility] Comment on above: Order Comment: Speci men Type: BLOOD SPECIMENOrdering Facility: [facility] Address: [address] [place] [address] Performed By: #### 5 7021-8 ####[facility] [id number] [address] LABORATORYCLIA [id number] [place] [address] [place] Basophils/100 WBC (Bld) 2.0 % Normal [facility] Comment on above: Order Comment: Speci men Type: BLOOD SPECIMENOrdering Facility: [facility] Address: [address] [place] [address] Performed By: #### 5 7021-8 ####[facility] KOREYTOWNCLIA [id number] [address] LABORATORYCLIA [id number] [place] [address] [place] Differential cell count method Nom (Bld) Manual Normal [facility] Comment on above: Order Comment: Speci men Type: BLOOD SPECIMENOrdering Facility: [facility] Address: [address] [place] [address] Performed By: #### 5 7021-8 ####[facility]ITALNCLIA [id number] [address] LABORATORYCLIA [id number] [place] [address] [place] Eosinophils (Bld) [#/Vol] 0.13 10*3/uL Normal <0.46 [facility] Comment on above: Order Comment: Speci men Type: BLOOD SPECIMENOrdering Facility: [facility] Address: [address] [place] [address] Performed By: #### 5 7021-8 ####[facility] RIDGEWNCLIA [id number] [address] LABORATORYCLIA [id number] [place] [address] [place] Eosinophils/100 WBC (Bld) 7.0 % Normal [facility] Comment on above: Order Comment: Speci men Type: BLOOD SPECIMENOrdering Facility: [facility] Address: [address] [place] [address] Performed By: #### 5 7021-8 ####[facility] MILLTOWNCLIA [id number] [address] LABORATORYCLIA [id number] [place] [address] [place] Erythrocyte distribution width (RBC) [Ratio] 16.6 % High 11.5-15.0 [facility] Comment on above: Order Comment: Speci men Type: BLOOD SPECIMENOrdering Facility: [facility] Address: [address] [place] [address] Performed By: #### 5 7021-8 ####[facility]ITALLIA [id number] [address] LABORATORYIA [id number] [place] [address] [place] Hematocrit (Bld) [Volume fraction] 31.7 % Low 39.0-51.0 [facility] Comment on above: Order Comment: Speci men Type: BLOOD SPECIMENOrdering Facility: [facility] Address: [address] [place] [address] Performed By: #### 5 7021-8 ####[facility] P[facility] RIDGEWWILIA [id number] [address] LABORATORYIA [id number] [place] [address] [place] Hemoglobin (Bld) [Mass/Vol] 10.7 g/dL Low 13.0-17.0 [facility] Comment on above: Order Comment: Speci men Type: BLOOD SPECIMENOrdering Facility: [facility] Address: [address] [place] [address] Performed By: #### 5 7021-8 ####[facility]ALLIA [id number] [address] LABORATORYIA [id number] [place] [address] [place] Lymphocytes (Bld) [#/Vol] 0.65 10*3/uL Low 1.00-4.00 [facility] Comment on above: Order Comment: Speci men Type: BLOOD SPECIMENOrdering Facility: [facility] Address: [address] [place] [address] Performed By: #### 5 7021-8 ####[facility] KOREYTOWNCLIA [id number] [address] LABORATORYCLIA [id number] [address] Lymphocytes/100 WBC (Bld) 35.0 % Normal [facility] Comment on above: Order Comment: Speci men Type: BLOOD SPECIMENOrdering Facility: [facility] Address: [address] [place] [address] Performed By: #### 5 7021-8 ####[facility] KOREYWNCLIA [id number] [address] LABORATORYCLIA [id number] [place] [address] [place] [facility] MCH (RBC) [Entitic mass] 28.5 pg Normal 26.0-34.0 [facility] Comment on above: Order Comment: Speci men Type: BLOOD SPECIMENOrdering Facility: [facility] Address: [address] [place] [address] Performed By: #### 5 7021-8 ####[facility] KOREYTOWNCLIA [id number] [address] LABORATORYCLIA [id number] [place] [address] [place] [facility] MCHC (RBC) [Mass/Vol] 33.8 g/dL Normal 30.5-36.0 [facility] Comment on above: Order Comment: Speci men Type: BLOOD SPECIMENOrdering Facility: [facility] Address: [address] [place] [address] Performed By: #### 5 7021-8 ####[facility] HOSPITALJESUSA [id number] [address] LABORATORYCLIA [id number] [place] [address] [place] MCV (RBC) [Entitic vol] 84.5 fL Normal 80.0-100.0 [facility] Comment on above: Order Comment: Speci men Type: BLOOD SPECIMENOrdering Facility: [facility] Address: [address] [place] [address] Performed By: #### 5 7021-8 ####[facility]ITALLIA [id number] [address] LABORATORYCLIA [id number] [place] [address] [place] Monocytes (Bld) [#/Vol] 0.20 10*3/uL Normal <0.87 [facility] Comment on above: Order Comment: Speci men Type: BLOOD SPECIMENOrdering Facility: [facility] [facility] Address: [address] [place] [address] Performed By: #### 5 7021-8 ####[facility] [id number] [address] LABORATORYCLIA [id number] [place] [address] [place] Monocytes/100 WBC (Bld) 11.0 % Normal [facility] Comment on above: Order Comment: Speci men Type: BLOOD SPECIMENOrdering Facility: [facility] Address: [address] [place] [address] Performed By: #### 5 7021-8 ####[facility] [id number] [address] LABORATORYCLIA [id number] [place] [address] [place] Neutrophils (Bld) [#/Vol] 0.84 10*3/uL Low 1.45-7.50 [facility] Comment on above: Order Comment: Speci men Type: BLOOD SPECIMENOrdering Facility: [facility] Address: [address] [place] [address] Performed By: #### 5 7021-8 ####[facility]OWNCLIA [id number] [address] LABORATORYCLIA [id number] [place] [address] [place] Neutrophils/100 WBC (Bld) 45.0 % Normal [facility] Comment on above: Order Comment: Speci men Type: BLOOD SPECIMENOrdering Facility: [facility] Address: [address] [place] [address] Performed By: #### 5 7021-8 ####[facility] [id number] [address] LABORATORYCLIA [id number] [place] [address] [place] Nucleated RBC (Bld) [#/Vol] 10*3/uL Normal <0.01 [facility] Comment on above: Order Comment: Speci men Type: BLOOD SPECIMENOrdering Facility: [facility] Address: [address] [place] [address] Performed By: #### 5 7021-8 ####[facility] [id number] [address] LABORATORYCLIA [id number] [place] [address] [place] Nucleated RBC/100 WBC (Bld) [Ratio] 0.0 /100 WBC Normal [facility] Comment on above: Order Comment: Speci men Type: BLOOD SPECIMENOrdering Facility: [facility] Address: [address] [place] [address] Performed By: #### 5 7021-8 ####[facility] MILLTOWNCLIA [id number] [address] LABORATORYCLIA [id number] [place] [address] [place] Ovalocytes LM Ql (Bld) Few Normal Cl [facility] Comment on above: Order Comment: Speci men Type: BLOOD SPECIMENOrdering Facility: [facility] Address: [address] [place] [address] Performed By: #### 5 7021-8 ####[facility] [id number] [address] LABORATORYCLIA [id number] [place] [address] [place] Platelet mean volume (Bld) [Entitic vol] 8.9 fL Low 9.0-12.7 [facility] Comment on above: Order Comment: Speci men Type: BLOOD SPECIMENOrdering Facility: [facility] Address: [address] [place] [address] Performed By: #### 5 7021-8 ####[facility]ITALNCA [id number] [address] LABORATORYCLIA [id number] [place] [address] [place] Platelets (Bld) [#/Vol] 59 10*3/uL Low 150-400 [facility] Comment on above: Order Comment: Speci men Type: BLOOD SPECIMENOrdering Facility: [facility] Address: [address] [place] [address] Result Comment: No c lot detected. Performed By: #### 5 7021-8 ####[facility] RIDGEWNCLIA [id number] [address] LABORATORYCLIA [id number] [address] Platelets Estimate (Bld) [#/Vol] Decreased Normal [facility] Comment on above: Order Comment: Speci men Type: BLOOD SPECIMENOrdering Facility: [facility] Address: [address] [place] [address] Performed By: #### 5 7021-8 ####[facility]ITALNCLIA [id number] [address] LABORATORYCLIA [id number] [address] STATES [facility] RBC (Bld) [#/Vol] 3.75 10*6/uL Low 4.20-6.00 [facility] Comment on above: Order Comment: Speci men Type: BLOOD SPECIMENOrdering Facility: [facility] Address: [address] [place] [address] Performed By: #### 5 7021-8 ####[facility] [id number] [address] LABORATORYCLIA [id number] [address] RED CELL MORPH Reviewed: see result s of individual morphologies Normal [facility] Comment on above: Order Comment: Speci men Type: BLOOD SPECIMENOrdering Facility: [facility] Address: [address] [place] [address] Performed By: #### 5 7021-8 ####[facility]ITALNCLIA [id number] [address] LABORATORYCLIA [id number] [address] WBC (Bld) [#/Vol] 1.86 10*3/uL Low 3.70-11.00 [facility] Comment on above: Order Comment: Speci men Type: BLOOD SPECIMENOrdering Facility: [facility] Address: [address] [place] [address] Result Comment: No c lot detected. Performed By: #### 5 7021-8 ####[facility] [id number] [address] LABORATORYCLIA [id number] [address] [place] Free PSA [Mass/Vol]on 2024 Free PSA/Total PSA [Mass fraction] 47 % Normal [facility] Comment on above: Order Comment: Speci men Type: BLOOD SPECIMENOrdering Facility: [facility] Address: [address] [place] [address] Result Comment: Tota l and free PSA test methodology used is the Electrochemiluminescence Immunoassay by [employer]. Total or free PSA values by differing methodologies cannot be interchanged. The below table lists the probability of finding prostate cancer upon needle biopsy, for men 50 years or older and total PSA concentrations from 4.0-10.0 ng/mL. Results should be interpreted within the broader clinical context. Free PSA(%) 50-59 years 60-69 years >69 years <11 49.2% 57.5% 64.5% 11-18 26.9% 33.9% 40.8% 19-25 18.3% 23.9% 29.7% >25 9.1% 12.2% 15.8% Performed By: #### 1 0886-0, 3016-3 ####[facility] LABCLIA [id number] [address] STATES OF [facility] Prostate specific Ag [Mass/Vol] 0.17 ng/mL Normal <2.60 [facility] Comment on above: Order Comment: Speci men Type: BLOOD SPECIMENOrdering Facility: [facility] Address: [address] [place] [address] Result Comment: Tota l PSA test methodology used is the Electrochemiluminescence Immunoassay by [employer]. Total PSA values by differing methodologies cannot be interchanged. Performed By: #### 1 0886-0, 3016-3 ####[facility] LABCLIA [id number] [address] [address] [place] TSH SerPl-aCncon 11-09-2024 TSH Qn 3.630 m[IU]/L Normal 0.270-4.200 [facility] Comment on above: Order Comment: Speci men Type: BLOOD SPECIMENOrdering Facility: [facility] Address: [address] [facility] [facility], [place] [address] Performed By: #### 1 0886-0, 3016-3 ####[facility] LABCLIA [id number] [place] [id number] [place] Endocrinology Visit Reporton 11-03-2024 Endocrinology Visit Report [facility] [address] [place] [address] OFFICE VISIT Date of Service: 11/03/24 MR#: [id number] Acct: [id number] Name: BLANCASHAL MIKAELCATARINO Rep #: [id number] : 1970 Provider: Nori Keating Age/Sex: 54/M Location: [facility] Status: Signed Intake Vital Signs 11/05/23 11:01 09/09/24 14:24 11/03/24 11:07 Height 6 ft 2 in 6 ft 2 in 6 ft 2 in Weight: 246 lb BMI 31.6 BP 110/71 Blood Pressure Location Lt brachial Position Sitting Pulse 82 Pulse Source Monitor Pulse Oximetry (%) 96 Oxygen Delivery Method room air Intake Visit Reasons: 1 Y FU Chief Complaint: hypogonadism, hyperglycemia, hypothyroidism Records Specialist Required: No Accompanied by: Self Is patient in pain?: No Allergies Bleach (Sodium Hypochlorite) Allergy (Mild, Verified 11/03/24 11:07) RASH piperacillin Allergy (Verified 11/03/24 11:07) Unknown vancomycin Allergy (Verified 11/03/24 11:07) Unknown latex Adverse Reaction (Mild, Verified 11/03/24 11:07) RASH Medications ???Medication ???Instructions ???Recorded ???Confirmed ???Type enoxaparin 120 mg/0.8 mL 120 mg subcut DAILY 06/07/1411/03 History subcutaneous syringe atorvastatin 10 mg tablet 10 mg PO DAILY #1 TAB 05/20/2106/24 Rx syringe with needle 3 mL 22 gauge #6 ea 09/15/23 11/03/24 Rx x 1 doxepin 10 mg capsule 10 mg PO QDAY PRN 11/05/23 5 History metformin 1,000 mg tablet 1,000 mg PO BID 11/05/23 11/03/24 History lisinopril 5 mg tablet 5 mg PO DAILY #90 tabs 02/22/24 Rx acetaminophen 325 mg capsule 650 mg PO Q6H PRN 08/15/24 5 History albuterol 90 mcg/actuation aerosol 180 mcg inhalation .QID PRN 07/3111/03/24 History inhaler benzonatate 100 mg capsule 100 mg PO TID PRN 08/15/24 5 History furosemide 40 mg tablet (Lasix) 40 mg PO QAM #30 tabs 08/15/2406/24 Rx ipratropium 0.5 mg-albuterol 3 mg 3 ml inhalation Q4H PRN 08/15/24 11/03/24 History (2.5 mg base)/3 mL nebulization soln rifaximin 550 mg tablet (Xifaxan) 550 mg PO BID #60 tabs 08/15/24 0 11/03/24 Rx carvedilol 3.125 mg tablet 3.125 mg PO BID 1 month #60 tabs 0 09/09/24 11/03/24 Rx spironolactone 50 mg tablet 50 mg PO QDAY 1 month #30 tabs 01/2411/03/24 Rx levothyroxine 100 mcg tablet 100 mcg PO DAILY #90 tabs 11/03/24 11/03/24 Rx testosterone enanthate 200 mg/mL 200 mg IM .COMPLEX #6 mL 11/03/24 11/03/24 Rx intramuscular oil PFSH Medical History Hepatomegaly Hematuria Embolism and thrombosis of unspecified site Esophageal varices DVT of popliteal vein Cirrhosis Chronic lower back pain Cholecystitis Calcified granuloma of lung Adjustment disorder with depressed mood Achilles tendon tear Obesity Diabetes Osteopenia determined by x-ray Lupus anticoagulant disorder Hypothyroidism (acquired) Male hypogonadism History of vertebral compression fracture Splenomegaly Vitamin deficiency Vision problems Pneumonia Hives Frequent headaches Chronic bronchitis BLOOD TRANSFUSION UTI (urinary tract infection) Bone fracture Back problem Surgical History History of orchiectomy, bilateral Family History Other Anesthesia complication BLOOD CLOT Colon cancer Diabetes Hormone deficiency Hypertension Social History Smoking Status: Former smoker Tobacco: How many years used: 2 alcohol intake: current alcohol intake frequency: a few times a month substance use type: does not use HPI HPI Chief Complaint: hypogonadism, hyperglycemia, hypothyroidism Details: HAL BLANCAS, is a 54 M who presents to the office today for follow up. He has had a rough time recently. 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 He states he wasn't taking his lovenox faithfully. 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 He has hypothyroidism on levothyroxine. He has pre-diabetes. A1C 5.8% He is on disability. ROS Const Constitutional: Positive for fatigue; No weakness, weight change or change in appetite Eyes Eyes: No change in vision ENT ENT: No hearing loss, nasal congestion or difficulty swallowing Cardio Cardiology: No chest pain at rest, chest pain with exertion or shortness of breath Musc Musculoskeletal: No numbness Neuro Neurology: No weakness, memory loss or numbness Psych Psychiatric: No change in appetite, No memory loss and No Thoughts of harming yourself/Others Resp Respiratory: No cough or chest congestion Gastro GI: No difficulty swallowing Genitourinary Male: No burning urinat (more content not included)... Normal [facility] ANTI PLT FACTOR 4 ABon 10-24 Heparin induced platelet IgG Reyes (S) [Interp] Negative Normal Negative [facility] Comment on above: Order Comment: Speci men Type: BLOOD SPECIMENOrdering Facility: [facility] Address: [address] [place] [address] Result Comment: No a nti-platelet factor 4 IgG antibody is detected by DAYNE assay. Heparin-induced thrombocytopenia (HIT) is unlikely, but should be excluded based on clinical factors. Performed By: #### P LATF4 ####[facility] LABCLIA [id number] [place] [address] [place] Platelet factor 4 Qn (PPP) 0.217 OD Normal <0.400 [facility] Comment on above: Order Comment: Speci [facility] Type: BLOOD SPECIMENOrdering Facility: [facility] Address: [address] [place] [address] Result Comment: Not calculated Performed By: #### P LATF4 ####[facility] LABIA [id number] [place] [address] [place] BETA 2 GLYCOPROTEIN, IGGon 0 10-24-2024 Beta 2 glycoprotein 1 IgG IA Qn 29 SGU High <20 [facility] Comment on above: Order Comment: [facility] Type: BLOOD SPECIMENOrdering Facility: [facility] Address: [address] [place] [address] Result Comment: <20 SGU Negative 20-80 SGU Low Positive >80 SGU High Positive These results were obtained with the [employer] QUANTA Lite B2 GPI IgG DAYNE. B2 GPI IgG values obtained with different manufacturers' assay methods may not be used interchangeably. The magnitude of the reported IgG levels cannot be correlated to an endpoint titer. Performed By: #### 5 076-5, CARDIG, CARDIM, BETA2G, BETA2M ####[facility] LABIA [id number] [place] [address] [place] BETA 2 GLYCOPROTEIN, IGMon 0 10-24-2024 Beta 2 glycoprotein 1 IgM IA Qn 21 SMU High <20 [facility] Comment on above: Order Comment: Speci [facility] Type: BLOOD SPECIMENOrdering Facility: [facility] Address: [address] [place] [address] Result Comment: <20 SMU Negative 20-80 SMU Low Positive >80 SMU High positive These results were obtained with the [employer] QUANTA Lite B2 GPI IgM DAYNE. B2 GPI IgM values obtained with different manufacturers' assay methods may not be used interchangeably. The magnitude of the reported IgM levels cannot be correlated to an endpoint titer. Performed By: #### 5 076-5, NICOLE STEPHENS, BETA2G, BETA2M ####[facility] LABCLIA [id number] [address] [place] CARDIOLIPIN IGG ABSon 2024 Cardiolipin IgG IA Qn (S) 26.3 GPL High <15.0 [facility] Comment on above: Order Comment: Speci men Type: BLOOD SPECIMENOrdering Facility: [facility] Address: [address] [place] [address] Result Comment: <15 GPL Negative 15-20 GPL Indeterminate >20 GPL Positive The following results were obtained with the [employer] QUANTA Lite DO IgG III DAYNE. Cardiolipin IgG values obtained with the different manufacturers' assay methods may not be used interchangeably. The magnitude of the reported IgG levels cannot be correlated to an endpoint titer. Performed By: #### 5 076-5, NICOLE STEPHENS, BETA2G, BETA2M ####[facility] LABIA [id number] [address] [place] CARDIOLIPIN IGM ABSon 2024 Cardiolipin IgM IA Qn (S) 24.4 MPL High <12.5 [facility] Comment on above: Order Comment: Speci men Type: BLOOD SPECIMENOrdering Facility: [facility] Address: [address] [place] [address] Result Comment: <12. 5 MPL Negative 12.5-20 MPL Indeterminate >20 MPL Positive The following results were obtained with the [employer] QUANTA Lite DO IgM III DAYNE. Cardiolipin IgM values obtained with the different manufacturers' assay methods may not be used interchangeably. The magnitude of the reported IgM levels cannot be correlated to an endpoint titer. ??? Performed By: #### 5 076-5, KAT CARDIM, BETA2G, BETA2M ####[facility] LABCLIA [id number] [place] [address] [place] CBC W Auto Differential pane l (Bld)on 10-24-2024 Anisocytosis Ql (Bld) Present Normal [facility] Comment on above: Order Comment: Speci men Type: BLOOD SPECIMENOrdering Facility: [facility] Address: [address] [place] [address] Performed By: #### 5 7021-8 ####[facility] MILLTOWNCLIA [id number] [address] LABORATORYCLIA [id number] [place] [address] [place] Basophils (Bld) [#/Vol] 0.02 10*3/uL Normal <0.11 [facility] Comment on above: Order Comment: Speci men Type: BLOOD SPECIMENOrdering Facility: [facility] Address: [address] [place] [address] Performed By: #### 5 7021-8 ####[facility] MILLTOWNCLIA [id number] [address] LABORATORYCLIA [id number] [place] [address] [place] Basophils/100 WBC (Bld) 1.0 % Normal [facility] Comment on above: Order Comment: Speci men Type: BLOOD SPECIMENOrdering Facility: [facility] Address: [address] [place] [address] Performed By: #### 5 7021-8 ####[facility] MILLWNCLIA [id number] [address] LABORATORYIA [id number] [place] [address] [place] Dacrocytes LM Ql (Bld) Few Normal [facility] Comment on above: Order Comment: Speci men Type: BLOOD SPECIMENOrdering Facility: [facility] Address: [address] [place] [address] Performed By: #### 5 7021-8 ####[facility] VIKAS MILLTOWNCLIA [id number] [address] LABORATORYCLIA [id number] [place] [address] [place] Differential cell count method Nom (Bld) Manual Normal [facility] Comment on above: Order Comment: Speci men Type: BLOOD SPECIMENOrdering Facility: [facility] Address: [address] [place] [address] Performed By: #### 5 7021-8 ####[facility] MILLWNCLIA [id number] [address] LABORATORYCLIA [id number] [place] [address] [place] Eosinophils (Bld) [#/Vol] 0.02 10*3/uL Normal <0.46 [facility] Comment on above: Order Comment: Speci men Type: BLOOD SPECIMENOrdering Facility: [facility] Address: [address] [place] [address] Performed By: #### 5 7021-8 ####[facility]GEWNCLIA [id number] [address] LABORATORYCLIA [id number] [place] [address] [place] Eosinophils/100 WBC (Bld) 1.0 % Normal [facility] Comment on above: Order Comment: Speci men Type: BLOOD SPECIMENOrdering Facility: [facility] Address: [address] [place] [address] Performed By: #### 5 7021-8 ####[facility] MILLTOWNCLIA [id number] [address] LABORATORYCLIA [id number] [place] [address] [place] Erythrocyte distribution width (RBC) [Ratio] 16.3 % High 11.5-15.0 [facility] Comment on above: Order Comment: Speci men Type: BLOOD SPECIMENOrdering Facility: [facility] Address: [address] [place] [address] Performed By: #### 5 7021-8 ####[facility] RIDGEWNCLIA [id number] [address] LABORATORYCLIA [id number] [place] [address] [place] Hematocrit (Bld) [Volume fraction] 31.8 % Low 39.0-51.0 [facility] Comment on above: Order Comment: Speci men Type: BLOOD SPECIMENOrdering Facility: [facility] Address: [address] [place] [address] Performed By: #### 5 7021-8 ####[facility] [id number] [address] LABORATORYCLIA [id number] [place] [address] [place] Hemoglobin (Bld) [Mass/Vol] 10.8 g/dL Low 13.0-17.0 [facility] Comment on above: Order Comment: Speci men Type: BLOOD SPECIMENOrdering Facility: [facility] Address: [address] [place] [address] Performed By: #### 5 7021-8 ####[facility] [id number] [address] LABORATORYIA [id number] [place] [address] [place] Lymphocytes (Bld) [#/Vol] 0.67 10*3/uL Low 1.00-4.00 [facility] Comment on above: Order Comment: Speci men Type: BLOOD SPECIMENOrdering Facility: [facility] Address: [address] [place] [address] Performed By: #### 5 7021-8 ####[facility] MILLTOWNCLIA [id number] [address] LABORATORYCLIA [id number] [address] STATES [facility] Lymphocytes/100 WBC (Bld) 35.0 % Normal [facility] Comment on above: Order Comment: Speci men Type: BLOOD SPECIMENOrdering Facility: [facility] Address: [address] [place] [address] Performed By: #### 5 7021-8 ####[facility] MILLTOWNCLIA [id number] [address] LABORATORYCLIA [id number] [place] [address] [place] [facility] MCH (RBC) [Entitic mass] 28.5 pg Normal 26.0-34.0 [facility] Comment on above: Order Comment: Speci men Type: BLOOD SPECIMENOrdering Facility: [facility] Address: [address] [place] [address] Performed By: #### 5 7021-8 ####[facility] MILLTOWNCLIA [id number] [address] LABORATORYCLIA [id number] [address] STATES OF [facility] MCHC (RBC) [Mass/Vol] 34.0 g/dL Normal 30.5-36.0 [facility] Comment on above: Order Comment: Speci men Type: BLOOD SPECIMENOrdering Facility: [facility] Address: [facility] [place] [id number] Performed By: #### 5 7021-8 ####[facility] MILLTOWNCLIA [id number] [address] [facility] LABORATORYCLIA [id number] [place] [address] [place] MCV (RBC) [Entitic vol] 83.9 fL Normal 80.0-100.0 [facility] Comment on above: Order Comment: Speci men Type: BLOOD SPECIMENOrdering Facility: [facility] Address: [address] [place] [address] Performed By: #### 5 7021-8 ####[facility] [id number] [address] LABORATORYCLIA [id number] [place] [address] [place] Monocytes (Bld) [#/Vol] 0.13 10*3/uL Normal <0.87 [facility] Comment on above: Order Comment: Speci men Type: BLOOD SPECIMENOrdering Facility: [facility] Address: [address] [place] [address] Performed By: #### 5 7021-8 ####[facility] [id number] [address] LABORATORYCLIA [id number] [place] [address] [place] Monocytes/100 WBC (Bld) 7.0 % Normal [facility] Comment on above: Order Comment: Speci men Type: BLOOD SPECIMENOrdering Facility: [facility] Address: [address] [place] [address] Performed By: #### 5 7021-8 ####[facility] [id number] [address] LABORATORYCLIA [id number] [place] [address] [place] Neutrophils (Bld) [#/Vol] 1.06 10*3/uL Low 1.45-7.50 [facility] Comment on above: Order Comment: Speci men Type: BLOOD SPECIMENOrdering Facility: [facility] Address: [address] [place] [address] Performed By: #### 5 7021-8 ####[facility] KOREYTOWNCLIA [id number] [address] LABORATORYCLIA [id number] [place] [address] [place] Neutrophils/100 WBC (Bld) 56.0 % Normal [facility] Comment on above: Order Comment: Speci men Type: BLOOD SPECIMENOrdering Facility: [facility] Address: [address] [place] [address] Performed By: #### 5 7021-8 ####[facility]ITALNCLIA [id number] [address] [address] LABORATORYCLIA [id number] [place] [address] [place] Nucleated RBC (Bld) [#/Vol] 0.02 10*3/uL High <0.01 [facility] Comment on above: Order Comment: Speci men Type: BLOOD SPECIMENOrdering Facility: [facility] Address: [address] [place] [address] Performed By: #### 5 7021-8 ####[facility] PINE RIDGEWNCLIA [id number] [address] LABORATORYCLIA [id number] [place] [address] [place] Nucleated RBC/100 WBC (Bld) [Ratio] 1.0 /100 WBC Normal [facility] Comment on above: Order Comment: Speci men Type: BLOOD SPECIMENOrdering Facility: [facility] Address: [address] [place] [address] Performed By: #### 5 7021-8 ####[facility] MILLTOWNCLIA [id number] [address] LABORATORYCLIA [id number] [place] [address] [place] Ovalocytes LM Ql (Bld) Few Normal Cl [facility] Comment on above: Order Comment: Speci men Type: BLOOD SPECIMENOrdering Facility: [facility] Address: [address] [place] [address] Performed By: #### 5 7021-8 ####[facility] MILLTOWNCLIA [id number] [address] LABORATORYCLIA [id number] [place] [address] [place] Platelet mean volume (Bld) [Entitic vol] 8.4 fL Low 9.0-12.7 [facility] Comment on above: Order Comment: Speci men Type: BLOOD SPECIMENOrdering Facility: [facility] Address: [address] [place] [address] Performed By: #### 5 7021-8 ####[facility] MILLTOWNCLIA [id number] [address] LABORATORYCLIA [id number] [place] [address] [place] Platelets (Bld) [#/Vol] 45 10*3/uL Low 150-400 [facility] Comment on above: Order Comment: Speci men Type: BLOOD SPECIMENOrdering Facility: [facility] Address: [address] [id number] Performed By: #### 5 7021-8 ####[facility] MILLTOWNCLIA [id number] [address] LABORATORYCLIA [id number] [place] [address] [place] Platelets Estimate (Bld) [#/Vol] Decreased Normal [facility] Comment on above: Order Comment: Speci men Type: BLOOD SPECIMENOrdering Facility: [facility] Address: [address] [place] [address] Performed By: #### 5 7021-8 ####[facility] MILLTOWNCLIA [id number] [address] LABORATORYCLIA [id number] [place] [address] [place] Polychromasia LM Ql (Bld) Slight Normal [facility] Comment on above: Order Comment: Speci men Type: BLOOD SPECIMENOrdering Facility: [facility] Address: [address] [place] [address] Performed By: #### 5 7021-8 ####[facility]ITALNCLIA [id number] [address] LABORATORYCLIA [id number] [place] [address] [place] RBC (Bld) [#/Vol] 3.79 10*6/uL Low 4.20-6.00 [facility] Comment on above: Order Comment: Speci men Type: BLOOD SPECIMENOrdering Facility: [facility] Address: [address] [place] [address] Performed By: #### 5 7021-8 ####[facility] RIDGEWNCLIA [id number] [address] LABORATORYCLIA [id number] [place] [address] [place] RED CELL MORPH Reviewed: see result s of individual morphologies Normal [facility] Comment on above: Order Comment: Speci men Type: BLOOD SPECIMENOrdering Facility: [facility] Address: [address] [place] [address] Performed By: #### 5 7021-8 ####[facility] MILLPERCYNCLIA [id number] [place] [address] [facility] LABORATORYCLIA [id number] [place] [address] [place] WBC (Bld) [#/Vol] 1.90 10*3/uL Low 3.70-11.00 [facility] Comment on above: Order Comment: Speci men Type: BLOOD SPECIMENOrdering Facility: [facility] Address: [address] [place] [address] Performed By: #### 5 7021-8 ####[facility] SYSTEMNCLIA [id number] [address] LABORATORYCLIA [id number] [place], [place] [id number] [place] [address] CNOVSPon 10-24-2024 CNOVSP Visit (SP) Office (H EMAWS) -- HAL BLANCAS ([id number]) 1970 M Date Time Provider Department 10/24/24 10:50 AM DEXTER WONG HEMAWS During your visit today, we recorded the following information about you: Temperature Pulse Blood pressure Weight 98 degrees 65/minute 96/60 105.7 kg Height 1.867 m Dexter Wong DO 10/24/2024 3:03 PM Signed Diagnosis: 1) Splenomegaly. 2) Thrombocytopenia. 3) LA. 4) H/O VTE. 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 Underwent evaluation with cystoscopy and in January 2004 for a 6 month history of intermittent gross hematuria associated with passing of some clots. Developed a DVT of the left calf in 01/2004 following 2 week cast to the leg for partial tear of the Achilles tendon. US 02/28/2004 showed acute deep venous thrombosis involving the left peroneal vein without apparent extension into the left tibioperoneal trunk. Patent and compressible left greater and lesser saphenous veins. According to the record, he was hospitalized to receive unfractionated heparin and conversion to Coumadin. Evidently a CT scan revealed potential pulmonary embolism in the right upper lobe. Right femoral inferior vena cava filter placement on July 01, 2004--evidently placed due to recurring gross hematuria and need for surgical repair of Achilles tendon. In the recovery room he had tingling paresthesias in both legs and was unable to move his legs. There was concern about possible embolus to the spinal cord and he was transferred to [facility]. Workup was entirely unremarkable. MRI of the spinal cord showed no evidence of embolic injury or transverse myelitis. His symptoms gradually abated and he was able to be out of bed. 07/04/2004--He had a antiphospholipid antibody panel which showed an IGG of 63 which is markedly elevated with an IGM of 37. 08/2004--2 of 3 criteria met for lupus anticoagulant. Patient had a positive screening test and demonstration of phospholipid dependence into assays including DR KESSLER phospholipid confirm ratio and platelet neutralization. Mixing studies did not demonstrate the presence of inhibitor. Evaluated for pneumaturia 03/2005. 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 He then underwent a barium enema which demonstrated barium in his urine on xray of the urinal. There was no air or contrast seen in the bladder during BE or CT scan. 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 Colonsocopy on March 18 was unremarkable. Underwent exploration on March 19. No abnormalities were found. An incidental appendectomy was performed. Was then evaluated initially by urology at [facility] 05/2005. Notes indicate he was on Coumadin at that time. Ultimately ended up undergoing sequential orchiectomy for continued testicular pain. He also continued to have obstructive voiding symptoms. He was followed by Dr. Batista 2006 through 2012 for his history of lupus anticoagulant pulmonary embolism. In 2012 and a follow-up visit it was noted that he had self discontinued Lovenox injections and was diagnosed with recurrent pulmonary emboli when admitted to [facility] for pneumonia. Patient was advised at that time to resume Lovenox injections. No follow-up in this office until 2016. The patient had worsening left upper quadrant pain over the last couple months prior to evaluation here 2016. It was bad enough that he went to the emergency room on 04/10/2016. A CT scan the abdomen and pelvis was performed--was noted to have hepatomegaly and severe splenomegaly, but no measurements rendered. Had bone marrow biopsy 04/2016 that showed a normocellular bone marrow with trilineage hematopoiesis along with erythroid hyperplasia and adequate megakaryocytes. No evidence of lymphoma or lymphoproliferative disorder. I had ordered a liver vascular ultrasound at that time to assess for portal hypertension. Patient did not schedule it for approximately 6 months later. There was no clear evidence of liver disease or increase important pressures that would have led to splenomegaly. Since spleen size was stable at that time (10/2016) compared to earlier in the year and bone marrow biopsy was unremarkable I suggested monitoring with ultrasound was reasonable. Patient did not get back to us with his decision on this. Patient was seen by Dr. Corado at the department of hematology [facility] in July 2019. Consultation with general surgery for splenectomy was advised. Patient declined. He is opted for expectant management knowing that there may be a lymphoproliferative disorder undiagnosed. He had EGD and colonoscopy 03/13/2021 (more content not included)... [facility] HAL BLANC[facility] ([id number]) 1970 M Date Time Provider Department 10/24/24 DEXTER WONG During your visit today, we recorded the following information about you: Dexter Wong, 10/24/2024 5:52 PM Addendum Please let him know that the assay to determine the Lovenox level in his bloodstream showed it was undetectable. That shouldn't be if he is taking the dose every 12 hours. If he has been consistently taking it every 12 hours then maybe technique is not correct. He may need a refresher on self injection. DO Orestes Moy Pamela S, LPN 10/25/2024 10:07 AM Addendum Pt. Contacted concerning results and that the assay to determine the Lovenox level in his bloodstream showed it was undetectable Spoke with pt. He states he is injecting every 12 hrs. As directed, questioned if he is missing doses, informed occasionally he will miss a dose but not often. When questioned about his rx as he should have needed a refill by now, he states he has a lot on hand . Also questioned the dose he was taking and he informed 120mg , questioned he was taking the entire siringe, he states yes . Contacted [facility] pharmacy. 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 Have tried twice since our conversation to call him back, goes straight to voicemail HODA Medrano Paul A, DO 10/25/2024 4:51 PM Signed Thank you for contacting [facility]. I sent in a new prescription. I strongly advise he use the Lovenox on a consistent basis and get his CBC done every 2 weeks as we discussed at OV. DO Bong Moy Melanie, LPN 10/26/2024 4:29 PM Signed Left message for patient to contact office. HODA Benito Melanie, LPN 10/27/2024 11:17 AM Signed Patient returned call and was given all instructions. Patient will crab picker new Rx and take Lovenox consistently. Anika Woody LPN Allergies As of Date: 10/24/2024 Noted Allergy Reaction PIPERACILLIN 08/25/2007 2 - Rash VANCOCIN (VANCOMYCIN) 08/25/2007 2 - Rash LATEX 05/18/2020 2 - Rash SODIUM HYPOCHLORITE SOLUTION 05/18/2020 2 - Rash Date Reviewed: 10/24/2024 Reviewed by: Francine Castro Ma, MA - Fully Assessed Reason for Visit: Results [95] Visit Diagnoses:Lupus anticoagulant disorder (HCC) [D68.62] Recurrent deep vein thrombosis (DVT) (HCC) [I82.409] Order(s):enoxaparin (LOVENOX) 120 mg/0.8 mL injectionInject 111 mg subcutaneously every 12 hours.Disp: 60 eachRfl: 5 Prescriptions as of 10/27/2024 - atorvastatin (LIPITOR) 10 mg tablet Take 1 tablet by mouth daily at bedtime. For cholesterol. - enoxaparin (LOVENOX) 120 mg/0.8 mL injection Inject 111 mg subcutaneously every 12 hours. - doxepin capsule 10 mg Take 1 capsule by mouth at bedtime as needed (insomnia). - ipratropium-albuterol (DUONEB) 0.5 mg-3 mg(2.5 mg base)/3 mL nebu Inhale 3 mL as instructed every 4 hours as needed (wheezing). Use over 5-15minutes per nebulizer. - benzonatate (TESSALON PERLE) 100 mg capsule Take 1-2 capsules by mouth three times a day as needed for cough. - levothyroxine (SYNTHROID) 100 mcg tablet Take 1 tablet by mouth once daily. - lisinopril (ZESTRIL) 5 mg tablet Take 1 tablet by mouth once daily. - metFORMIN (GLUCOPHAGE) 1,000 mg tablet Take 1 tablet by mouth two times a day with meals. . - blood sugar diagnostic (BLOOD GLUCOSE TEST) test strip Test blood sugar(s) 1 times daily. Dx: Type 2 DM - Controlled E11.9 Insulin: No - Lancets Test blood sugar(s) 1 times daily. Dx: Type 2 DM - Controlled E11.9 Insulin: No - acetaminophen (TYLENOL) 325 mg tablet Take 2 tablets by mouth every 6 hours as needed for pain. - ACCU-CHEK GUIDE ME GLUCOSE MTR USE TO TEST BLOOD SUGAR - testosterone enanthate (DELATESTRYL) 200 mg/mL injection - CPAP Patient would like to change DME closer to home. Needs mask and supplies. Current PAP device only 3 months old. Need download from device. Lifetime supplies. - Syringe with Needle, Disp, 3 mL 22 gauge x 1 syrg Use as directed to inject testosterone once a month - ALBUTEROL 90 MCG/ACTUATION AEROSOL INHALER Inhale two(2) puffs four(4) times a day for wheezing and shortness of breath. 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 Normal [facility] Cardiolipin IgA Ser IA-aCnco n 10-24-2024 Cardiolipin IgA IA Qn (S) <9.0 Normal <12.0 [facility] Comment on above: Order Comment: Speci men Type: BLOOD SPECIMENOrdering Facility: [facility] Address: [address] [place] [address] Result Comment: <12 APL Negative 12-20 APL Indeterminate >20 APL Positive The following results were obtained with the [employer] Lite DO IgA III DAYNE. Cardiolipin IgA values obtained with the different manufacturers' assay methods may not be used interchangeably. The magnitude of the reported IgA levels cannot be correlated to an endpoint titer. Performed By: #### 5 076-5, CARDIG, CARDIM, BETA2G, BETA2M ####[facility] LABCLIA [id number] [place] [address] [place] Comprehensive metabolic 2000 panelOrdered By: Marli Santos on 10-24-2024 Albumin [Mass/Vol] 3.9 g/dL 3.9 - 4.9 g/dL [facility] ALP [Catalytic activity/Vol] 116 U/L High 38 - 113 U/L [facility] ALT [Catalytic activity/Vol] 29 U/L 10 - 54 U/L [facility] Anion gap [Moles/Vol] 10 mmol/L 8 - 15 mmol/L [facility] AST [Catalytic activity/Vol] 38 U/L 14 - 40 U/L [facility] Bilirubin [Mass/Vol] 1.1 mg/dL 0.2 - 1 .3 mg/dL [facility] Calcium [Mass/Vol] 9.7 mg/dL 8.5 - 10. 2 mg/dL [facility] Chloride [Moles/Vol] 106 mmol/L 98 - 10 7 mmol/L [facility] CO2 [Moles/Vol] 20 mmol/L Low 22 - 30 mmol/L [facility] Creatinine [Mass/Vol] 0.80 mg/dL 0.73 - 1.22 mg/dL [facility] GFR/1.73 sq M.predicted among non-blacks MDRD (S/P/Bld) [Vol rate/Area] 105 mL/min/{1.73_m2} - PINF [facility] Comment on above: Estimated Glomerular Filtration Rate (eGFR) is calculated using the 2020 CKD-EPI creatinine equation. This equation utilizes serum creatinine, sex, and age as parameters. The creatinine assay has traceable calibration to isotope dilution-mass spectrometry. Refer to KDIGO guidelines for clinical interpretation. In patients with unstable renal function, e.g. those with acute kidney injury, the eGFR may not accurately reflect actual GFR. Glucose [Mass/Vol] 127 mg/dL High 74 - 99 mg/dL [facility] Comment on above: The [place] Di[employer] s Association (ADA) provides guidance for cutoff values for fasting glucose and random glucose. The ADA defines fasting as no caloric intake for at least 8 hours. Fasting plasma glucose results between 100 to 125 mg/dL indicate increased risk for diabetes (prediabetes). Fasting plasma glucose results greater than or equal to 126 mg/dL meet the criteria for diagnosis of diabetes. In the absence of unequivocal hyperglycemia, results should be confirmed by repeat testing. In a patient with classic symptoms of hyperglycemia or hyperglycemic crisis, random plasma glucose results greater than or equal to 200 mg/dL meet the criteria for diagnosis of diabetes. Reference: Standards of Medical Care in Diabetes 2016, [place] Diabetes Association. Diabetes Care. 2016.39(Suppl 1). Interpretation and review of laboratory results Abnormal [facility] Potassium [Moles/Vol] 4.4 mmol/L 3.7 - 5.1 mmol/L [facility] Protein [Mass/Vol] 6.3 g/dL 6.3 - 8.0 g/dL [facility] Sodium [Moles/Vol] 136 mmol/L 136 - 144 mmol/L [facility] Urea nitrogen [Mass/Vol] 18 mg/dL 9 - 24 mg/dL [facility] Comprehensive metabolic 2000 panelon 10-24-2024 Albumin [Mass/Vol] 3.9 g/dL Normal 3.9-4.9 [facility] Comment on above: Order Comment: Speci men Type: BLOOD SPECIMENOrdering Facility: [facility] Address: [address] [place] [address] Performed By: #### 2 4323-8 ####[facility] [id number] [place] [address] [place] ALP [Catalytic activity/Vol] 116 U/L High 38-113 [facility] Comment on above: Order Comment: Speci men Type: BLOOD SPECIMENOrdering Facility: [facility] Address: [address] [place] [address] Performed By: #### 2 4323-8 ####[facility] [id number] [place] [address] [place] ALT [Catalytic activity/Vol] 29 U/L Normal 10-54 [facility] Comment on above: Order Comment: Speci men Type: BLOOD SPECIMENOrdering Facility: [facility] Address: [address] [place] [address] Performed By: #### 2 4323-8 ####[facility]ITALLIA [id number] [place] [address] [place] Anion gap [Moles/Vol] 10 mmol/L Normal 8-15 [facility] Comment on above: Order Comment: Speci men Type: BLOOD SPECIMENOrdering Facility: [facility] Address: [address] [place] [address] Performed By: #### 2 4323-8 ####[facility]ITALTOWNCLIA [id number] [place] [address] [place] AST [Catalytic activity/Vol] 38 U/L Normal 14-40 [facility] Comment on above: Order Comment: Speci men Type: BLOOD SPECIMENOrdering Facility: [facility] Address: [address] [place] [address] Performed By: #### 2 4323-8 ####[facility] RIDGEWNCLIA [id number] [place] [address] [place] Bilirubin [Mass/Vol] 1.1 mg/dL Normal 0.2-1.3 [facility] Comment on above: Order Comment: Speci men Type: BLOOD SPECIMENOrdering Facility: [facility] Address: [address] [place] [address] Performed By: #### 2 4323-8 ####[facility] RIDGEWNCLIA [id number] [place] [address] [place] Calcium [Mass/Vol] 9.7 mg/dL Normal 8.5-10.2 [facility] Comment on above: Order Comment: Speci men Type: BLOOD SPECIMENOrdering Facility: [facility] Address: [address] [place] [address] Performed By: #### 2 4323-8 ####[facility] RIDGEWNCLIA [id number] [place] [address] [place] Chloride [Moles/Vol] 106 mmol/L Normal 98-107 [facility] Comment on above: Order Comment: Speci men Type: BLOOD SPECIMENOrdering Facility: [facility] Address: [address] [place] [address] Performed By: #### 2 4323-8 ####[facility]ITALNCLIA [id number] [place] [address] [place] CO2 [Moles/Vol] 20 mmol/L Low 22-30 [facility] Comment on above: Order Comment: Speci men Type: BLOOD SPECIMENOrdering Facility: [facility] Address: [address] [place] [address] Performed By: #### 2 4323-8 ####[facility] [id number] [place] [address] [place] Creatinine [Mass/Vol] 0.80 mg/dL Normal 0.73-1.22 [facility] Comment on above: Order Comment: Speci men Type: BLOOD SPECIMENOrdering Facility: [facility] Address: [address] [place] [address] Performed By: #### 2 4323-8 ####[facility]ITALNCCAC[facility] [id number] [place] [address] [place] eGFRcr SerPlBld CKD-EPI 2020 105 mL/min/1.73m??? Normal >=60 [facility] Comment on above: Order Comment: Speci men Type: BLOOD SPECIMENOrdering Facility: [facility] Address: [address] [place] [address] Result Comment: Francia mated Glomerular Filtration Rate (eGFR) is calculated using the 2020 CKD-EPI creatinine equation. This equation utilizes serum creatinine, sex, and age as parameters. The creatinine assay has traceable calibration to isotope dilution-mass spectrometry. Refer to KDIGO guidelines for clinical interpretation. In patients with unstable renal function, e.g. those with acute kidney injury, the eGFR may not accurately reflect actual GFR. Performed By: #### 2 4323-8 ####[facility] [id number] [place] [address] [place] Glucose [Mass/Vol] 127 mg/dL High 74-99 [facility] Comment on above: Order Comment: Speci men Type: BLOOD SPECIMENOrdering Facility: [facility] Address: [address] [place] [address] Result Comment: The [place] Diabetes Association (ADA) provides guidance for cutoff values for fasting glucose and random glucose. The ADA defines fasting as no caloric intake for at least 8 hours. Fasting plasma glucose results between 100 to 125 mg/dL indicate increased risk for diabetes (prediabetes). Fasting plasma glucose results greater than or equal to 126 mg/dL meet the criteria for diagnosis of diabetes. In the absence of unequivocal hyperglycemia, results should be confirmed by repeat testing. In a patient with classic symptoms of hyperglycemia or hyperglycemic crisis, random plasma glucose results greater than or equal to 200 mg/dL meet the criteria for diagnosis of diabetes. Reference: Standards of Medical Care in Diabetes 2016, [place] Diabetes [employer]. Diabetes Care. 2016.39(Suppl 1). Performed By: #### 2 4323-8 ####[facility] P[facility] RIDGEREGISLILisy [id number] [place] [address] [place] Potassium [Moles/Vol] 4.4 mmol/L Normal 3.7-5.1 [facility] Comment on above: Order Comment: Speci men Type: BLOOD SPECIMENOrdering Facility: [facility] Address: [address] [place] [address] Performed By: #### 2 4323-8 ####[facility]IT[facility] [id number] [place] [address] [place] Protein [Mass/Vol] 6.3 g/dL Normal 6.3-8.0 [facility] Comment on above: Order Comment: Speci men Type: BLOOD SPECIMENOrdering Facility: [facility] Address: [address] [place] [address] Performed By: #### 2 4323-8 ####[facility]ITAL[facility]CLIA [id number] [place] [address] [place] Sodium [Moles/Vol] 136 mmol/L Normal 136-144 [facility] Comment on above: Order Comment: Speci men Type: BLOOD SPECIMENOrdering Facility: [facility] Address: [address] [place] [address] Performed By: #### 2 4323-8 ####[facility] [id number] [place] [address] [place] Urea nitrogen [Mass/Vol] 18 mg/dL Normal 9-24 [facility] Comment on above: Order Comment: Speci men Type: BLOOD SPECIMENOrdering Facility: [facility] Address: [address] [place] [address] Performed By: #### 2 4323-8 ####[facility]ITALNCLIA [id number] [place] [address] [place] Ferritin SerPl-ncon 2024 Ferritin [Mass/Vol] 49.0 ng/mL Normal 30.3-565.7 [facility] Comment on above: Order Comment: Speci men Type: BLOOD SPECIMENOrdering Facility: [facility] Address: [address] [place] [address] Performed By: #### 2 276-4, 87477-2 ####[facility] LABCLIA [id number] [place] [address] [place] Iron and Iron binding capaci ty panelon 10-24-2024 Iron [Mass/Vol] 82 ug/dL Normal 41-186 [facility] Comment on above: Order Comment: Speci men Type: BLOOD SPECIMENOrdering Facility: [facility] Address: [address] [place] [address] Performed By: #### 2 276-4, 87303-4 ####[facility] LABCLIA [id number] [place] [address] [place] Iron binding capacity [Mass/Vol] 289 ug/dL Normal 232-386 [facility] Comment on above: Order Comment: Speci men Type: BLOOD SPECIMENOrdering Facility: [facility] Address: [address] [place] [address] Performed By: #### 2 276-4, 07119-3 ####[facility] LABCLIA [id number] [place] [id number] [place] Iron/TIBC [Molar ratio] 28.4 % Normal 15.0-57.0 [facility] Comment on above: Order Comment: Speci men Type: BLOOD SPECIMENOrdering Facility: [facility] Address: [address] [place] [address] Performed By: #### 2 276-4, 60267-0 ####[facility] [id number] [place] [address] [place] LMW ANTI XA ASSAYOrdered By: Javy Ferris on 10-24-2024 LMW Heparin Qn (PPP) [facility] Comment on above: Therapeutic Range: 0 .5 to 1.1 IU/mL ([facility] 1998: 122:799 to 807). Frozen Plasma Aliquot LMW Heparin Qn (PPP)Ordered By: Javy Ferris on 10-24-2024 Interpretation and review of laboratory results Normal [facility] LMWH PPP-aCncon 10-24-2024 LMW Heparin Qn (PPP) <0.10 Normal <0.10 [facility] Comment on above: Order Comment: Speci men Type: BLOOD SPECIMENOrdering Facility: [facility] Address: [address] [place] [address] Result Comment: Ther apeutic Range: 0.5 to 1.1 IU/mL ([facility] 1998: 122:799 to 807). Frozen Plasma Aliquot Performed By: #### 3 2684-3 ####[facility] [id number] [place] [address] [place] LUPUS PANELon 10-24-2024 aPTT Coag (Bld) [Time] 46.4 s High 30.2-43.0 [facility] Comment on above: Order Comment: Malena villarreal Type: BLOOD SPECIMENOrdering Facility: [facility] Address: [address] [place] [address] Result Comment: This test was developed, and its performance characteristics determined by the [facility] Department of Pathology and Laboratory Medicine. It has not been cleared or approved by the FDA. The [facility] Department of Pathology and Laboratory Medicine is regulated under CLIA as qualified to perform high-complexity testing. This test is used for clinical purposes. It should not be regarded as investigational or for research. Performed By: #### L [id number], LUPPL ####[facility] LABCLIA [id number] [place] [address] [place] aPTT Coag (Bld) [Time] 37.7 s Normal 31.5-38.3 [facility] Comment on above: Order Comment: Speci men Type: BLOOD SPECIMENOrdering Facility: [facility] Address: [address] [place] [address] Result Comment: This test was developed, and its performance characteristics determined by the [facility] Department of Pathology and Laboratory Medicine. It has not been cleared or approved by the FDA. The [facility] Department of Pathology and Laboratory Medicine is regulated under CLIA as qualified to perform high-complexity testing. This test is used for clinical purposes. It should not be regarded as investigational or for research. Performed By: #### L [id number], LUPPL ####[facility] LABIA [id number] [place] [address] [place] aPTT Coag (Bld) [Time] 35.8 s High 24.0-35.1 [facility] Comment on above: Order Comment: Speci men Type: BLOOD SPECIMENOrdering Facility: [facility] Address: [address] [place] [address] Performed By: #### L [id number], LUPPL ####[facility] LABIA [id number] [place] [id number] [place] aPTT W excess hexagonal phase phospholipid Coag (PPP) [Time] 53.0 seconds High 34.0-51.8 [facility] Comment on above: Order Comment: Speci men Type: BLOOD SPECIMENOrdering Facility: [facility] Address: [address] [place] [address] Performed By: #### L [id number], LUPPL ####[facility] LABCLIA [id number] [place] [address] [place] aPTT-LA w 1:1 PNP Coag (PPP) [Time] 30.1 seconds Normal <33.2 [facility] Comment on above: Order Comment: Speci men Type: BLOOD SPECIMENOrdering Facility: [facility] Address: [address] [place] [address] Result Comment: This test was developed, and its performance characteristics determined by the [facility] Department of Pathology and Laboratory Medicine. It has not been cleared or approved by the FDA. The [facility] Department of Pathology and Laboratory Medicine is regulated under CLIA as qualified to perform high-complexity testing. This test is used for clinical purposes. It should not be regarded as investigational or for research. Performed By: #### L [id number], LUPPL ####[facility] [id number] [place] [address] [place] Coagulation factor VIII activity actual/normal Coag (PPP) [Relative time] 134 % Normal 50-173 [facility] Comment on above: Order Comment: Speci men Type: BLOOD SPECIMENOrdering Facility: [facility] Address: [address] [place] [address] Result Comment: This test was developed, and its performance characteristics determined by the [facility] Department of Pathology and Laboratory Medicine. It has not been cleared or approved by the FDA. The [facility] of Pathology and Laboratory Medicine is regulated under CLIA as qualified to perform high-complexity testing. This test is used for clinical purposes. It should not be regarded as investigational or for research. Performed By: #### L [id number], LUPPL ####[facility] LABIA [id number] [place] [address] [place] Coagulation factor X activated act Coag Qn (PPP) <0.10 Normal <0.10 [facility] Comment on above: Order Comment: Speci men Type: BLOOD SPECIMENOrdering Facility: [facility] Address: [address] [place] [address] Result Comment: This test was developed, and its performance characteristics determined by the [facility] Department of Pathology and Laboratory Medicine. It has not been cleared or approved by the FDA. The [facility] Department of Pathology and Laboratory Medicine is regulated under CLIA as qualified to perform high-complexity testing. This test is used for clinical purposes. It should not be regarded as investigational or for research. Performed By: #### L [id number], LUPPL ####[facility] LABCLIA [id number] [place] Delta dRVVT Coag (PPP) [Time diff] 5.1 delta seconds Normal <7.1 [facility] Comment on above: Order Comment: Speci men Type: BLOOD SPECIMENOrdering Facility: [facility] Address: [address] [place] [address] Performed By: #### L [id number], LUPPL ####[facility] [id number] [address] [place] dRVVT Coag (PPP) [Time] 46.8 s High 32.0-45.7 [facility] Comment on above: Order Comment: Speci men Type: BLOOD SPECIMENOrdering Facility: [facility] Address: [address] [place] [address] Performed By: #### L [id number], LUPPL ####[facility] [id number] [address] [place] dRVVT factor substitution immediately after 1:2 addition of normal plasma Coag (PPP) [Time] 37.7 seconds Normal 32.0-45.7 [facility] Comment on above: Order Comment: Speci men Type: BLOOD SPECIMENOrdering Facility: [facility] Address: [address] [place] [address] Performed By: #### L [id number], LUPPL ####[facility] LABIA [id number] [place] [address] [place] dRVVT W excess hexagonal phase phospholipid actual/normal Coag (PPP) [Relative time] 47.8 seconds Normal 34.2-47.9 [facility] Comment on above: Order Comment: Speci men Type: BLOOD SPECIMENOrdering Facility: [facility] Address: [address] [place] [address] Performed By: #### L [id number], LUPPL ####[facility] LABCLIA [id number] [place] [address] [place] dRVVT/dRVVT.excess phospholipid Coag (PPP) [Ratio] 1.15 Normal <1.32 [facility] Comment on above: Order Comment: Speci men Type: BLOOD SPECIMENOrdering Facility: [facility] Address: [address] [place] [address] Performed By: #### L [id number], LUPPL ####[facility] [id number] [place] [address] [place] PLATELET NEUT 0.0 Seconds Normal <1.9 [facility] Comment on above: Order Comment: Speci men Type: BLOOD SPECIMENOrdering Facility: [facility] Address: [address] [place] [address] Result Comment: This test was developed, and its performance characteristics determined by the [facility] Department of Pathology and Laboratory Medicine. It has not been cleared or approved by the FDA. The [facility] Department of Pathology and Laboratory Medicine is regulated under CLIA as qualified to perform high-complexity testing. This test is used for clinical purposes. It should not be regarded as investigational or for research. Performed By: #### L [id number], LUPPL ####[facility] LABCLIA [id number] [place] [address] [place] PT Coag (Bld) [Time] 16.7 s High 11.6-14.4 [facility] Comment on above: Order Comment: Speci men Type: BLOOD SPECIMENOrdering Facility: [facility] Address: [address] [place] [address] Performed By: #### L [id number], LUPPL ####[facility] LABCLIA [id number] [place] [address] [place] Thrombin time Coag (PPP) [Time] 17.4 seconds Normal <18.6 [facility] Comment on above: Order Comment: Speci men Type: BLOOD SPECIMENOrdering Facility: [facility] Address: [address] [place] [address] Performed By: #### L [id number], LUPPL ####[facility] [id number] [place] [address] [place] [facility] [place] LUPUS PANEL INTERPon 025 Lupus anticoagulant (PPP) [Interp] Normal [facility] Comment on above: Order Comment: Speci men Type: BLOOD SPECIMENOrdering Facility: [facility] Address: [address] [place] [address] Result Comment: Abno rmal - see comment below. SIGNIFICANT FINDINGS: - Lupus Anticoagulant: Negative - Cardiolipin Antibody: IgM and IgG Positive - Beta 2 Glycoprotein I Antibody: IgM and IgG Positive Laboratory testing was performed to evaluate the presence of a lupus anticoagulant and antiphospholipid antibodies. Both the PT and APTT values were prolonged. The thrombin time and anti-Xa screen were normal. No heparin, anti-Xa or direct thrombin inhibitor drug effect is present. LUPUS ANTICOAGULANT STUDIES: There is no evidence for a lupus anticoagulant or other coagulation inhibitor at this time. The criteria for the diagnosis of a Lupus Anticoagulant, as detailed by the Subcommittee on Lupus Anticoagulants and Anti-Phospholipid Antibodies of the Scientific and Standardization Committee of the International Society on Thrombosis and Haemostasis (ISTH), are the following: (1) A prolonged phospholipid-dependent clotting test (screening test); (2) Evidence for an inhibitor (1:1 mix of patient:normal plasma); (3) Evidence that the inhibitor is phospholipid dependent and (4) Exclusion of specific inhibitors (ie, fVIII inhibitors, direct thrombin inhibitors, or heparin). Thromb. Haemost. 74:1185 (1995). ANTIPHOSPHOLIPID ANTIBODY STUDIES: The IgM and IgG Beta-2 Glycoprotein I antibody titers were positive. The presence of an IgM and/or IgG Beta-2 Glycoprotein I antibody (a type of antiphospholipid antibody) has been shown to be a risk factor for both venous and arterial thrombosis. Prior testing on 02/13/2020 was also positive for a Beta-2 Glycoprotein I antibody. Since the prior testing was performed more than 12 weeks previously, this may be indicative of the antiphospholipid syndrome, if observed in the correct clinical setting. The IgM and IgG Cardiolipin antibody titers were positive. The presence of an IgM and/or IgG Cardiolipin antibody (a type of antiphospholipid antibody) has been shown to be a risk factor for both venous and arterial thrombosis. Prior testing on 02/13/2020 was also positive for an Cardiolipin antibody. Since the prior testing was performed more than 12 weeks previously, this may be indicative of the antiphospholipid syndrome, if observed in the correct clinical setting. The IgA Cardiolipin antibody titer was negative. Antiphospholipid syndrome (APS) is present if at least one clinical criteria and one laboratory criteria are met. The clinical criteria for APS include the presence of vascular thrombosis or morbidity. The laboratory criteria for APS include positive testing for one of the following on two or more occasions, at least 12 weeks apart: (1) lupus anticoagulant; (2) anticardiolipin IgG or IgM in medium or high titer (>20 GPL or >20 MPL); (3) anti-beta 2 glycoprotein I IgG or IgM antibody. J. Thromb Haemost 4:295 (2006). Performed By: #### L [id number], [place] ####[facility] LABIA [id number] [place] [address] [place] Pathologist name Reviewed by Georgina Martinez M.D., Ph.D Normal [facility] Comment on above: Order Comment: Speci men Type: BLOOD SPECIMENOrdering Facility: [facility] Address: [address] [place] [address] Performed By: #### L [id number], SHYAMPL ####[facility] [id number] [place] [address] [place] Gastroenterology Visit Repor ton 09-09-2024 Gastroenterology Visit Report [facility] [address] [place] [address] OFFICE VISIT Date of Service: 09/09/24 MR#: [id number] Acct: [id number] Name: HAL BLANCAS Rep #: [id number] : 1970 Provider: Dr. Ap apple MD Age/Sex: 54/M Location: [facility] Status: Signed Intake Vital Signs 08/15/24 11:24 09/09/24 14:24 Height 6 ft 2 in 6 ft 2 in Weight: 238 lb BMI 30.5 BP 122/73 H Blood Pressure Location Rt brachial Position Sitting Pulse 86 Pulse Oximetry (%) 95 Intake Visit Reasons: DECOMPENSATED CIRRHOSIS Allergies Bleach (Sodium Hypochlorite) Allergy (Mild, Verified 09/09/24 14:27) RASH piperacillin Allergy (Verified 09/09/24 14:27) Unknown vancomycin Allergy (Verified 09/09/24 14:27) Unknown latex Adverse Reaction (Mild, Verified 09/09/24 14:27) RASH Medications ???Medication ???Instructions ???Recorded ???Confirmed ???Type enoxaparin 120 mg/0.8 mL 120 mg subcut DAILY 06/07/1409/09 History subcutaneous syringe atorvastatin 10 mg tablet 10 mg PO DAILY #1 TAB 05/20/2101/24 Rx syringe with needle 3 mL 22 gauge #6 ea 09/15/23 09/09/24 Rx x 1 doxepin 10 mg capsule 10 mg PO QDAY PRN 11/05/23 5 History levothyroxine 100 mcg tablet 100 mcg PO DAILY #90 tabs 11/05/23 09/09/24 Rx metformin 1,000 mg tablet 1,000 mg PO BID 11/05/23 09/09/24 History lisinopril 5 mg tablet 5 mg PO DAILY #90 tabs 02/22/24 Rx acetaminophen 325 mg capsule 650 mg PO Q6H PRN 08/15/24 5 History albuterol 90 mcg/actuation aerosol 180 mcg inhalation .QID PRN 07/3109/09/24 History inhaler benzonatate 100 mg capsule 100 mg PO TID PRN 08/15/24 5 History furosemide 40 mg tablet (Lasix) 40 mg PO QAM #30 tabs 08/15/2401/24 Rx ipratropium 0.5 mg-albuterol 3 mg 3 ml inhalation Q4H PRN 08/15/24 09/09/24 History (2.5 mg base)/3 mL nebulization soln rifaximin 550 mg tablet (Xifaxan) 550 mg PO BID #60 tabs 08/15/24 0 09/09/24 Rx testosterone enanthate 200 mg/mL 200 mg IM .COMPLEX #6 mL 09/08/24 09/09/24 Rx intramuscular oil carvedilol 3.125 mg tablet 3.125 mg PO BID 1 month #60 tabs 0 09/09/24 09/09/24 Rx spironolactone 50 mg tablet 50 mg PO QDAY 1 month #30 tabs 01/2409/09/24 Rx PFSH Medical History Hepatomegaly Hematuria Embolism and thrombosis of unspecified site Esophageal varices DVT of popliteal vein Cirrhosis Chronic lower back pain Cholecystitis Calcified granuloma of lung Adjustment disorder with depressed mood Achilles tendon tear Obesity Diabetes Osteopenia determined by x-ray Lupus anticoagulant disorder Hypothyroidism (acquired) Male hypogonadism History of vertebral compression fracture Splenomegaly Vitamin deficiency Vision problems Pneumonia Hives Frequent headaches Chronic bronchitis BLOOD TRANSFUSION UTI (urinary tract infection) Bone fracture Back problem Surgical History History of orchiectomy, bilateral Family History Other Anesthesia complication BLOOD CLOT Colon cancer Diabetes Hormone deficiency Hypertension Social History Smoking Status: Former smoker Tobacco: How many years used: 2 alcohol intake: current alcohol intake frequency: a few times a month substance use type: does not use HPI HPI Details: HAL BLANCAS, is a 54y/o male was seen on 08/15/2024 with complaints of abdominal pain, distension, 20lb weight gain in 2 weeks and occult positive stools. PMH significant for lupus anticoagulant on Lovenox, PE, DVT, DMII, cirrhosis, esophageal varices. Social history: Alcohol: Last drink 4 to 6 months ago. Before that he was drinking occasionally once in 1 to 2-month, started in 20s occasionally. Never been a big drinker. Smoking: High school tried 1 to 2 cigarettes but occasionally. Quit in the high school. Denies history of IV drug abuse. Patient used to take painkillers Percocet. COLON 03/13/2021 per PCP records 5 year recall due 03/13/2026 - descending TA EGD 03/13/2021 Grade II varices in the distal esophagus, small in size, negative or H. pylori occult positive stool 08/11/2024 CT A P with IV contrast 08/11/2024 hepatic cirrhosis, portal hypertension, large esophageal varices and moderate splenomegaly. There is nonocclusive thrombus within the right and left portal veins, main portal vein, SMV and splenic vein. The venous thrombus is new when compared to prior CT. Moderate to large volume ascites. Moderate left pleural effusion. Patient had paracentesis on 08/16/2024, about 6 L was taken out ROS Const Constitutional: (more content not included)... Normal [facility] Absolute lymphocyte countOrd ered By: Padmini Bauer on 08-24-2024 Lymphocytes Auto (Unsp spec) [#/Vol] 0.63 10*3/uL Low 0.83-4.51 [facility] Absolute neutrophil countOrd ered By: Padmini Bauer on 08-24-2024 Neutrophils (Bld) [#/Vol] 1.1 10*3/uL Low 2.0-7.7 [facility] Anion gap in Serum or Plasma Ordered By: Padmini Bauer on 08-24-2024 Anion gap [Moles/Vol] 9 mmol/L 5-15 [facility] Automated lymphocyte count a s percentage of total leukocytesOrdered By: Padmini Bauer on 08-24-2024 Lymphocytes/100 WBC Auto (Unsp spec) 30.0 % 19-41 [facility] BUN/creatinine ratioOrdered By: Padmini Bauer on 08-24-2024 Urea nitrogen/Creatinine [Mass ratio] 23.8 mg/mg High 10- [facility] Basic Metabolic Profile (BMP )on 08-24-2024 BUN/CRE 23.8 RATIO High 12-19 [facility] Comment on above: Performed By: #### L 100.0100, L500.2500 ####[facility] [address] [place], [address] Calcium [Mass/Vol] 8.9 mg/dL Normal 7.6-11.0 [facility] Comment on above: Performed By: #### L 100.0100, L500.2500 ####[facility] [address] [place], [address] Chloride [Moles/Vol] 103 mmol/L Normal 98-108 [facility] Comment on above: Performed By: #### L 100.0100, L500.2500 ####[facility] [address] [place], [address] CO2 [Moles/Vol] 26.1 mmol/L Normal 21.0-32.0 [facility] Comment on above: Performed By: #### L 100.0100, L500.2500 ####[facility] [address] [place], [address] Creatinine [Mass/Vol] 0.79 mg/dL Normal 0.70-1.20 [facility] Comment on above: Performed By: #### L 100.0100, L500.2500 ####[facility] [address] [place], [address] GAP 9 Normal 5-15 [facility] Comment on above: Performed By: #### L 100.0100, L500.2500 ####[facility] [address] [place], [address] GFR/1.73 sq M.predicted among non-blacks MDRD (S/P/Bld) [Vol rate/Area] 105 mL/min/{1.73_m2} Normal >60 [facility] Comment on above: Result Comment: mL/m in/1.73m2 CKD-EPI Creatinine Equation (2020) Performed By: #### L 100.0100, L500.2500 ####[facility] [address] [place], [address] Glucose [Mass/Vol] 116 mg/dL High 70-99 [facility] Comment on above: Performed By: #### L 100.0100, L500.2500 ####[facility] [address] [place], [address] Potassium [Moles/Vol] 3.6 mmol/L Normal 3.3-5.1 [facility] Comment on above: Performed By: #### L 100.0100, L500.2500 ####[facility] [address] [place], [address] Sodium [Moles/Vol] 138 mmol/L Normal 133-145 [facility] Comment on above: Performed By: #### L 100.0100, L500.2500 ####[facility] [address] [place], [address] Urea nitrogen [Mass/Vol] 19 mg/dL Normal 4-19 [facility] Comment on above: Performed By: #### L 100.0100, L500.2500 ####[facility] [address] [place], [address] Basophil percentageOrdered B y: Padmini Bauer on 08-24-2024 Basophils/100 WBC (Bld) 0.5 % 0-1 [facility] Blood manual differential co mment interpretation (narrative result)Ordered By: Padmini Bauer on 08-24-2024 Manual differential comment Reyes (Bld) [Interp] SERVICE ORDER EXPEDITER [facility] Comment on above: Previous reported re sult: SCANNED Edited by: DAVINA on 08/24/24:1315 AMENDED REPORT 08/24/24 1315 SMEAR COMMENT previously reported as: SCANNED CBC W/Diff, Automatedon 08-01 CBC W Auto Differential panel (Bld) Normal [facility] Comment on above: Performed By: #### L 100.0100, L500.2500 ####[facility] [address], [address] Carbon dioxide, total [Moles /volume] in Central venous bloodOrdered By: Padmini Bauer on 08-24-2024 CO2 [Moles/Vol] 26.1 mmol/L 21.0-32.0 [facility] Chloride assayOrdered By: Chong Bauer on 08-24-2024 Chloride [Moles/Vol] 103 mmol/L 98-108 [facility] Eosinophil percentageOrdered By: Padmini Bauer on 08-24-2024 Eosinophils/100 WBC (Bld) 5.2 % High 0-5 [facility] Erythrocyte distribution wid th ratioOrdered By: Padmini Bauer on 08-24-2024 Erythrocyte distribution width (RBC) [Ratio] 15.5 % High 11.6-14.6 [facility] Erythrocyte distribution wid th standard deviationOrdered By: Padmini Bauer on 08-24-2024 Erythrocyte distribution width (RBC) [Ratio] 46.2 fl High 35.1-43.9 [facility] Glomerular filtration rate ( GFR) estimation/1.73 sq m using serum, plasma, or whole bOrdered By: Padmini Bauer on 08-24-2024 GFR/1.73 sq M.predicted among non-blacks MDRD (S/P/Bld) [Vol rate/Area] 105 mL/min/{1.73_m2} >60 [facility] Comment on above: mL/min/1.73m2 CKD-EP I Creatinine Equation (2020) Hematocrit Auto (Bld) [Volum e fraction]Ordered By: Padmini Bauer on 08-24-2024 Hematocrit (Bld) [Volume fraction] 32.6 % Low 40-54 [facility] Hemoglobin measurementOrdere d By: Padmini Bauer on 08-24-2024 Hemoglobin (Bld) [Mass/Vol] 10.9 g/dL Low 13.0-16.5 [facility] Immature granulocytes/100 WB C Auto (Bld)Ordered By: Padmini Bauer on 08-24-2024 Immature granulocytes/100 WBC (Bld) 0.500 % 0.0-0.9 [facility] Comment on above: IG% - Immature Granu locytes (promyelocytes, myelocytes and metamyelocytes) > 1% indicates that a LEFT SHIFT is Present. MCV (mean corpuscular volume ) determinationOrdered By: Padmini Bauer on 08-24-2024 MCV (RBC) [Entitic vol] 83.0 fL 80-94 [facility] Mean corpuscular hemoglobin (MCH) determinationOrdered By: Padmini Bauer on 08-24-2024 MCH (RBC) [Entitic mass] 27.7 pg 27.0-32.0 [facility] Mean corpuscular hemoglobin concentration (MCHC) determinationOrdered By: Padmini Bauer on 08-24-2024 MCHC (RBC) [Mass/Vol] 33.4 g/dL 32-36 [facility] Mean platelet volume determi nationOrdered By: Padmini Bauer on 08-24-2024 Platelet mean volume (Bld) [Entitic vol] 8.9 fL 6.2-12.0 [facility] Monocyte percentageOrdered B y: Padmini Bauer on 08-24-2024 Monocytes/100 WBC (Bld) 10.0 % 0-10 [facility] Neutrophil percentageOrdered By: Padmini Bauer on 08-24-2024 Neutrophils/100 WBC (Bld) 53.8 % 47-70 [facility] Nucleated red blood cell per centageOrdered By: Padmini Bauer on 08-24-2024 Nucleated RBC/100 WBC (Bld) [Ratio] 0 % 0-5 [facility] Platelet countOrdered By: Chong Bauer on 08-24-2024 Platelets (Bld) [#/Vol] 64 10*3/uL Low 150-450 [facility] Platelet estimateOrdered By: Padmini Bauer on 08-24-2024 Platelets LM Ql (Bld) SERVICE ORDER EXPEDITER [facility] Comment on above: Previous reported re sult: MKD DEC Edited by: DAVINA on 08/24/24:1315 AMENDED REPORT 08/24/24 1315 PLT EST previously reported as: MKD DEC Potassium measurement (mass/ volume)Ordered By: Padmini Bauer on 08-24-2024 Potassium (Unsp spec) [Mass/Vol] 3.6 mmol/L 3.3-5.1 [facility] RBC Auto (Bld) [#/Vol]Ordere d By: Padmini Bauer on 08-24-2024 RBC (Bld) [#/Vol] 3.93 10*6/uL Low 4.6-6.2 [facility] Serum creatinine measurement (mass/volume)Ordered By: Padmini Bauer on 08-24-2024 Creatinine [Mass/Vol] 0.79 mg/dL 0.70-1.20 [facility] Serum glucose measurement (m ass/volume)Ordered By: Padmini Bauer on 08-24-2024 Glucose [Mass/Vol] 116 mg/dL High 70-99 [facility] Serum or plasma calcium magdalene urement (mass/volume)Ordered By: Padmini Bauer on 08-24-2024 Calcium [Mass/Vol] 8.9 mg/dL 7.6-11.0 [facility] Serum or plasma urea nitroge n measurement (mass/volume)Ordered By: Padmini Bauer on 08-24-2024 Urea nitrogen [Mass/Vol] 19 mg/dL 4-19 [facility] Sodium levelOrdered By: Jeanette Bauer on 08-24-2024 Sodium [Moles/Vol] 138 mmol/L 133-145 [facility] White blood cell (WBC) count Ordered By: Padmini Bauer on 08-24-2024 WBC (Bld) [#/Vol] 2.1 10*3/uL Low 4.4-11.0 [facility] Body Fluid Culton 08-22-2024 BFC UNK UNK No growth in 5 days. Normal [facility] Comment on above: Performed By: #### L 503.0300, M100.2000, M100.4001, L501.1810, L3800.0050, L200.0200, M100.2900, L350.1000 ####[facility] [address] [place], [address] Culture, Anaerobic Any Sourc juancarlos 08-22-2024 CUAN UNK UNK No growth in 5 days. Normal [facility] Comment on above: Performed By: #### L 503.0300, M100.2000, M100.4001, L501.1810, L3800.0050, L200.0200, M100.2900, L350.1000 ####[facility] [address] [place], [address] Amylase Body Fluidon 025 AMYLASE,BDY FLD 29 U/L Normal . [facility] Comment on above: Order Comment: ASCIT ES PARA Result Comment: ____ : BODY FLUID TYPE : AMYLASE : : : : : Lymph : 50 - 83 : : : : : Peritoneal : : : Fluid : 88 - 109 : : : : : Saliva : : : (Mixed Glands) : 36059 - [phone] : : : : Abdulkadir Warner V. Reference Intervals for Adults and Children 2008. Ninth Edition (V9.1) [employer], [facility]; [place]: August 2008. Performed at: [address] [id number] Patient Care Manager: Keegan García PhD, Phone: [phone] Performed By: #### L 503.0300, M100.2000, M100.4001, L501.1810, L3800.0050, L200.0200, M100.2900, L350.1000 ####[facility] [address] [place], [address] Body Fluid Cell Count+Diffon 08-18-2024 PATH COMM/BF Reviewed Normal [facility] Comment on above: Order Comment: The r eference range and other method performancespecifications have not been established for this bodyfluid. The test must be integrated into the clinicalcontext for interpretation.ASCITES PARA Result Comment: NO M ALIGNANT CELLS IDENTIFIED. Omaira Valencia MD 08/18/2024 AMENDED REPORT 08/18/24 1115 PATH COMM/BF previously reported as: May follow Performed By: #### L 503.0300, M100.2000, M100.4001, L501.1810, L3800.0050, L200.0200, M100.2900, L350.1000 ####[facility] [address] [place], [address] L501.1810on 08-18-2024 Albumin [Mass/Vol] 1.0 g/dL Normal Not Estab. [facility] Comment on above: Result Comment: The reference interval(s) and other method performance specifications have not been established for this body fluid. The test result must be integrated into the clinical context for interpretation. Performed By: #### L 503.0300, M100.2000, M100.4001, L501.1810, L3800.0050, L200.0200, M100.2900, L350.1000 ####[facility] [address] [place], [address] AFP, Tumor Markeron 08-18-19 AFP TUMOR KRISTOFER 2.8 ng/mL Normal 0.0-8.4 [facility] Comment on above: Order Comment: N Result Comment: [employer] [employer] Electrochemiluminescence Immunoassay (ECLIA) Values obtained with different assay methods or kits cannot be used interchangeably. Results cannot be interpreted as absolute evidence of the presence or absence of malignant disease. This test is not interpretable in females. Performed By: #### L 3300.0700, L300.3900, L3890.6202, L3890.6301, L3100.0460, L3890.6102, L3100.0300 #### [facility] [address] [place], [place], [id number] Gram Stainon 08-17-2024 GS UNK UNK Centrifuged Specimen? Culture performed on centrifuged specimen Gram Stain Rare White Blood Cells No organisms seen Normal [facility] Comment on above: Performed By: #### L 503.0300, M100.2000, M100.4001, L501.1810, L3800.0050, L200.0200, M100.2900, L350.1000 ####[facility] [address] [facility]. [place], [place], [id number] Hepatitis A AB, Totalon 07-31 HEPATITIS A,TOT Positive Abnormal Negative [facility] Comment on above: Result Comment: Comm ent: The HAV total antibody assay detects both IgG and IgM but does not differentiate between them. A negative result suggests susceptibility to infection. A positive result could be due to vaccination, previously resolved infection or active infection. Testing for HAV IgM should be performed if active HAV infection is suspected. [facility] offers profiles that will automatically reflex positive HAV total antibody results to IgM (e.g., panel #[id number] HAV Antibody w/ Rfx). Performed at: [address] [id number] Patient Care Manager: Keegan García PhD, Phone: [phone] Performed By: #### L 3300.0700, L300.3900, L3890.6202, L3890.6301, L3100.0460, L3890.6102, L3100.0300 #### [facility] [address] [facility] [address] [place], [place], [id number] Hepatitis B Core Ab Totalon 08-17-2024 HEP B CORE,TOT Negative Normal Negative [facility] Comment on above: Performed By: #### L 3300.0700, L300.3900, L3890.6202, L3890.6301, L3100.0460, L3890.6102, L3100.0300 #### [facility] [address] [place], [address] Amylase body fluidOrdered By : Padmini Bauer on 08-16-2024 Amylase (Body fld) [Catalytic activity/Vol] 29 U/L . [facility] Comment on above: : BODY FLUID TYPE : AMYLASE : : : : : Lymph : 50 - 83 : : : : : Peritoneal : : : Fluid : 88 - 109 : : : : : Saliva : : : (Mixed Glands) : 29[address] - 097640 : : : : [place] W, Abdulkadir V. Reference Intervals for Adults and Children 2008. Ninth Edition (V9.1) [employer] [facility], [facility]; [place]: August 2008.Performed at: [address] [id number] Director: Keegan García PhD, Phone: [phone] Anaerobic cultureOrdered By: Padmini Bauer on 08-16-2024 Bacteria identified Anaer cx Nom (Unsp spec) No growth in 5 days. [facility] Anion gap in Serum or Plasma Ordered By: Padmini Bauer on 08-16-2024 Anion gap [Moles/Vol] 9 mmol/L - [facility] BUN/creatinine ratioOrdered By: Padmini Bauer on 08-16-2024 Urea nitrogen/Creatinine [Mass ratio] 15.3 mg/mg - [facility] Basic Metabolic Profile (BMP )on 08-16-2024 BUN/CRE 15.3 RATIO Normal 12-19 [facility] Comment on above: Order Comment: JUST PRIOR TO PARACENTESIS Performed By: #### L 500.3400, L500.2500 ####[facility] [address] [place], [address] Calcium [Mass/Vol] 8.9 mg/dL Normal 7.6-11.0 [facility] Comment on above: Order Comment: JUST PRIOR TO PARACENTESIS Performed By: #### L 500.3400, L500.2500 ####[facility] [address] [place], [address] Chloride [Moles/Vol] 106 mmol/L Normal 98-108 [facility] Comment on above: Order Comment: JUST PRIOR TO PARACENTESIS Performed By: #### L 500.3400, L500.2500 ####[facility] [address] [place], [address] CO2 [Moles/Vol] 22.8 mmol/L Normal 21.0-32.0 [facility] Comment on above: Order Comment: JUST PRIOR TO PARACENTESIS Performed By: #### L 500.3400, L500.2500 ####[facility] [address] [place], [address] Creatinine [Mass/Vol] 0.80 mg/dL Normal 0.70-1.20 [facility] Comment on above: Order Comment: JUST PRIOR TO PARACENTESIS Performed By: #### L 500.3400, L500.2500 ####[facility] [address] [place], [address] GAP 9 Normal 07-14 [facility] Comment on above: Order Comment: JUST PRIOR TO PARACENTESIS Performed By: #### L 500.3400, L500.2500 ####[facility] [address] [place], [address] GFR/1.73 sq M.predicted among non-blacks MDRD (S/P/Bld) [Vol rate/Area] 105 mL/min/{1.73_m2} Normal >60 [facility] Comment on above: Order Comment: JUST PRIOR TO PARACENTESIS Result Comment: mL/m in/1.73m2 CKD-EPI Creatinine Equation (2020) Performed By: #### L 500.3400, L500.2500 ####[facility] [address] [place], [address] Glucose [Mass/Vol] 111 mg/dL High 70-99 [facility] Comment on above: Order Comment: JUST PRIOR TO PARACENTESIS Performed By: #### L 500.3400, L500.2500 ####[facility] [address] [place], [address] Potassium [Moles/Vol] 4.1 mmol/L Normal 3.3-5.1 [facility] Comment on above: Order Comment: JUST PRIOR TO PARACENTESIS Performed By: #### L 500.3400, L500.2500 ####[facility] [address] [place], [address] Sodium [Moles/Vol] 138 mmol/L Normal 133-145 [facility] Comment on above: Order Comment: JUST PRIOR TO PARACENTESIS Performed By: #### L 500.3400, L500.2500 ####[facility] [address] [place], [address] Urea nitrogen [Mass/Vol] 12 mg/dL Normal 4-19 [facility] Comment on above: Order Comment: JUST PRIOR TO PARACENTESIS Performed By: #### L 500.3400, L500.2500 ####[facility] [address] [place], [address] Bilirubin directOrdered By: Padmini Bauer on 08-16-2024 Bilirubin.direct [Mass/Vol] 0.61 mg/dL High 0.00-0.30 [facility] Bilirubin, totalOrdered By: Padmini Bauer on 08-16-2024 Bilirubin [Mass/Vol] 1.29 mg/dL 0.00-1.30 [facility] Body fluid albumin measureme nt by colorimetric method (mass/volume)Ordered By: Padmini Bauer on 08-16-2024 Albumin Ql (Body fld) 1.0 g/dL Not Estab. [facility] Comment on above: The reference interv al(s) and other method performance specificationshave not been established for this body fluid. The test result must beintegrated into the clinical context for interpretation. Body fluid appearance (nomin al result)Ordered By: Padmini Bauer on 08-16-2024 Appearance (Body fld) CLOUDY [facility] Body fluid color determinati onOrdered By: Padmini Bauer on 08-16-2024 Color (Body fld) LT YEL [facility] Body fluid erythrocytes coun t (number/volume)Ordered By: Padmini Bauer on 08-16-2024 RBC (Body fld) [#/Vol] 4 10*3/uL [facility] Body fluid leukocytes count (number/volume)Ordered By: Padmini Bauer on 08-16-2024 WBC (Body fld) [#/Vol] 0.437 10*3/uL [facility] Body fluid lymphocytes/100 l eukocytesOrdered By: Padmini Bauer on 08-16-2024 Lymphocytes/100 WBC (Body fld) 59 % [facility] Body fluid macrophage countO rdered By: Padmini Bauer on 08-16-2024 Macrophages (Body fld) [#/Vol] 30 % [facility] Body fluid mononuclear cell percentageOrdered By: Padmini Bauer on 08-16-2024 Mononuclear cells/100 WBC (Body fld) 97.7 % [facility] Body fluid protein measureme nt (mass/volume)Ordered By: Padmini Bauer on 08-16-2024 Protein (Body fld) [Mass/Vol] 1.5 g/dL Not Establ. [facility] Body fluid total cell countO rdered By: Padmini Bauer on 08-16-2024 Cells Counted Total (Body fld) [#] 0.522 10^3/ul [facility] Comment on above: This is the Total Nu mber of Nucleated Cell Types in the Body Fluid. Carbon dioxide, total [Moles /volume] in Central venous bloodOrdered By: Padmini Bauer on 08-16-2024 CO2 [Moles/Vol] 22.8 mmol/L 21.0-32.0 [facility] Chloride assayOrdered By: Chong Bauer on 08-16-2024 Chloride [Moles/Vol] 106 mmol/L 98-108 [facility] Cytology report of Body flui d Cyto stainOrdered By: Padmini Bauer on 08-16-2024 Cytology report Cyto stain Doc (Body fld) SEE PATHOLOGY REPORT [facility] Comment on above: Specimen submitted t o Anatomical Pathology Department for testing. Cytology, Body Fluid / CSFon 08-16-2024 CYTOLOGY,BF/CSF SEE PATHOLOGY REPORT Normal [facility] Comment on above: Order Comment: ASCIT ES PARA Result Comment: Spec imen submitted to Anatomical Pathology Department for testing. Performed By: #### L 503.0300, M100.2000, M100.4001, L501.1810, L3800.0050, L200.0200, M100.2900, L350.1000 ####[facility] [address] [place], [address] Glomerular filtration rate ( GFR) estimation/1.73 sq m using serum, plasma, or whole bOrdered By: Padmini Bauer on 08-16-2024 GFR/1.73 sq M.predicted among non-blacks MDRD (S/P/Bld) [Vol rate/Area] 105 mL/min/{1.73_m2} >60 [facility] Comment on above: mL/min/1.73m2 CKD-EP I Creatinine Equation (2020) Gram stainOrdered By: Carly Bauer on 08-16-2024 Microscopic observation Gram stain Nom (Unsp spec) [facility] - Chemistry and C hemistry - challengeOrdered By: Padmini Bauer on 08-16-2024 AST [Catalytic activity/Vol] 28 U/L <38 [facility] Liver Profileon 08-16-2024 Albumin [Mass/Vol] 3.5 g/dL Normal 3.5-5.0 [facility] Comment on above: Order Comment: JUST PRIOR TO PARACENTESIS Performed By: #### L 500.3400, L500.2500 ####[facility] [address] [place], [address] ALK PHOS 128 U/L Normal 40-129 [facility] Comment on above: Order Comment: JUST PRIOR TO PARACENTESIS Performed By: #### L 500.3400, L500.2500 ####[facility] [address] [place], [address] ALT [Catalytic activity/Vol] 16 U/L Normal <=46 [facility] Comment on above: Order Comment: JUST PRIOR TO PARACENTESIS Performed By: #### L 500.3400, L500.2500 ####[facility] [address] [place], [address] AST [Catalytic activity/Vol] 28 U/L Normal <=37 [facility] Comment on above: Order Comment: JUST PRIOR TO PARACENTESIS Performed By: #### L 500.3400, L500.2500 ####[facility] [address] [place], [address] Bilirubin [Mass/Vol] 1.29 mg/dL Normal 0.00-1.30 [facility] Comment on above: Order Comment: JUST PRIOR TO PARACENTESIS Performed By: #### L 500.3400, L500.2500 ####[facility] [address] [place], [address] Bilirubin.direct [Mass/Vol] 0.61 mg/dL High 0.00-0.30 [facility] Comment on above: Order Comment: JUST PRIOR TO PARACENTESIS Performed By: #### L 500.3400, L500.2500 ####[facility] [address] [place], [address] Globulin (S) [Mass/Vol] 2.2 g/dL Normal 2.2-4.2 [facility] Comment on above: Order Comment: JUST PRIOR TO PARACENTESIS Performed By: #### L 500.3400, L500.2500 ####[facility] [address] [place], [address] T PROT 5.8 g/dL Low 5.9-8.4 [facility] Comment on above: Order Comment: JUST PRIOR TO PARACENTESIS Performed By: #### L 500.3400, L500.2500 ####[facility] [address] [place], [address] Monocyte detectionOrdered By : Padmini Bauer on 08-16-2024 Monocytes/100 WBC (Bld) 11 % [facility] No Panel InformationOrdered By: Padmini Bauer on 08-16-2024 Body Fluid Comment 2 SEE COMMENT [facility] Comment on above: .INTERPRETATION OF R ESULTS: Differentiation of transudate and exudate fluid: TRANSUDATE EXUDATE Color- Clear,straw colored Clear,turbid,bloody,purulent RBCs- Usually none to few Often present in high numbers WBCs- Usually none to few Often present in high numbers DIFF Few lymphocytes or Lymphocytes, neutrophils, andCount- mesothelial cells. polymorphonuclear cells . Operative Reporton Operative Report [facility] Medical Records Department [address] [place] [address] Operative Report 08/16/24 1328 MR#: [id number] Acct: [id number] Name: HAL BLANCAS Rep #: [id number] : 1970 54 From: Anahy Lynn SERVICE ORDER EXPEDITER-C PCP: Dr. Paul Urias MD Status:DEP [facility] Location: [facility] Problems Associated Problem List Diagnoses (1) Ascites: Multi Select Codes Radiology Radiology US Procedures: 14565 Paracentesis Operative Report (Standard) Operative Information Date of Procedure: 08/16/24 Pre-Operative Diagnosis: Ascites Post-Operative Diagnosis: Ascites Surgery/Procedure Performed: Ultrasound-guided paracentesis occupancy specialist: No Type of Anesthesia: Local Procedure Start Time: 12:46 Procedure Stop Time: 13:23 Select all DRAINS/GRAFTS/IMPLANTS that apply: None Estimated Blood Loss: 0 Specimen collected: Yes Description of specimen(s) removed: 100 mL of clear dark yellow fluid Description of surgery: PROCEDURE: Ultrasound guided paracentesis ORDERING PROVIDER: Padmini Bauer CNP INDICATION: Male, 54 years old. Ascites. PROVIDER: ROSEMARY Maldonado TECHNIQUE: The risks, benefits, and alternatives to the procedure were explained to the patient. The specific risks of bleeding, infection, and damage to bowel were detailed and accepted. Witnessed informed consent was obtained. The patient is on Lovenox twice daily; he held the 2 doses preprocedure. The abdomen was ultrasonographically surveyed. An appropriate pocket of fluid was identified in the left lower quadrant. The skin was prepped with chlorhexidine and sterile field established. 2% lidocaine was used for local anesthetic. Using ultrasound guidance, the peritoneal cavity was accessed with a 5-Mongolian paracentesis needle/catheter system. The trocar was removed. A total of 6050 ml of clear dark yellow colored fluid was removed from the peritoneal cavity. A sample was sent to the lab for diagnostic purposes. The catheter was removed and a sterile dressing was applied. The procedure was well tolerated. There were no immediate complications. The procedure was proctored by interventional radiologist Dr. Alva. IMPRESSION: Successful ultrasound guided paracentesis with left lower quadrant access site. Surgical Findings: None Complications Complications: No 08/16/24 1333 Cosigner Signature (if applicable): 09/06/24 0743 CC: AGUSTIN Lynn; AGUSTIN Bauer; Dr. Paul Urias MD; Dr. Samuel Alva MD Signed Normal [facility] Pathologist interpretation o f Body fluid testsOrdered By: Padmini Bauer on 08-16-2024 Pathologist interpretation (Body fld) [Interp] May follow [facility] Pathologist interpretation (Body fld) [Interp] Reviewed [facility] Comment on above: Previous reported re sult: May follow Edited by: GARY on 08/18/24:1115NO MALIGNANT CELLS IDENTIFIED.Omaira Valencia MD 08/18/2024 AMENDED REPORT 08/18/24 1115 PATH COMM/BF previously reported as: May follow Potassium measurement (mass/ volume)Ordered By: Padmini Bauer on 08-16-2024 Potassium (Unsp spec) [Mass/Vol] 4.1 mmol/L 3.3-5.1 [facility] Protein, Body Fluidon 2024 Protein [Mass/Vol] 1.5 g/dL Normal Not Establ. [facility] Comment on above: Order Comment: ASCIT ES PARA Performed By: #### L 503.0300, M100.2000, M100.4001, L501.1810, L3800.0050, L200.0200, M100.2900, L350.1000 ####[facility] [address] [place], [address] Serum creatinine measurement (mass/volume)Ordered By: Padmini Bauer on 08-16-2024 Creatinine [Mass/Vol] 0.80 mg/dL 0.70-1.20 [facility] Serum globulin measurementOr dered By: Padmini Bauer on 08-16-2024 Globulin (S) [Mass/Vol] 2.2 g/dL 2.2-4.2 [facility] Serum glucose measurement (m ass/volume)Ordered By: Padmini Bauer on 08-16-2024 Glucose [Mass/Vol] 111 mg/dL High 70-99 [facility] Serum or plasma alanine le otransferase (ALT) measurementOrdered By: Padmini Bauer on 08-16-2024 ALT [Catalytic activity/Vol] 16 U/L <47 [facility] Serum or plasma albumin magdalene urement (mass/volume)Ordered By: Padmini Bauer on 08-16-2024 Albumin [Mass/Vol] 3.5 g/dL 3.5-5.0 [facility] Serum or plasma alkaline delbert sphatase measurementOrdered By: Padmini Bauer on 08-16-2024 ALP [Catalytic activity/Vol] 128 U/L 40-129 [facility] Serum or plasma calcium magdalene urement (mass/volume)Ordered By: Padmini Bauer on 08-16-2024 Calcium [Mass/Vol] 8.9 mg/dL 7.6-11.0 [facility] Serum or plasma urea nitroge n measurement (mass/volume)Ordered By: Padmini Bauer on 08-16-2024 Urea nitrogen [Mass/Vol] 12 mg/dL 4-19 [facility] Sodium levelOrdered By: Jeanette Bauer on 08-16-2024 Sodium [Moles/Vol] 138 mmol/L 133-145 [facility] Special Stain Group IIon Special Stain Group II --------- Patient Age/Sex Location Account Attending Physician HAL BLANCAS 54/M [facility] [id number] AGUSTIN Pacheco Specimen: [id number] Received: 08/16/24-739 Status: LATRICE Read Num: [id number] Spec Type: Fluid Subm Dr: Padmini Bauer, AGUSTIN HEADER OPERATION: Ultrasound guided paracentesis PRE-OP DIAGNOSIS: Ascites TISSUE SUBMITTED: A- Paracentesis fluid for cytology DIAGNOSIS CYTOLOGY A. Peritoneal fluid, ascites, paracentesis (cytospin, cellblock): * No malignant cells identified. CYTOLOGY STUDY Slides are reviewed. CYTOLOGY GROSS A. Received is 90 ml of yellow-cloudy fluid labeled with the patient's name and and designated per the requisition as Paracentesis fluid. Submitted for cytology and cell block preparation. 08/17/2024 CPT: 72480, 63077 Signed (signature on file) Dr. Omaira Valencia MD 08/29/24 1148 Normal [facility] Comment on above: Performed By: #### P SSII ####[facility] [address] [place], [address] Specimen source identificati on of body fluidOrdered By: Padmini Bauer on 08-16-2024 Specimen source Nom (Body fld) PERITONEAL FLUID [facility] Total proteinOrdered By: Margie Bauer on 08-16-2024 Protein [Mass/Vol] 5.8 g/dL Low 5.9-8.4 [facility]ANC[facility] ([id number]) 1970 M Date Time Provider Department 08/15/24 JULIÁN URIAS [facility] During your visit today, we recorded the following information about you: Nori Corbin, RN 08/15/2024 2:55 PM Signed Cordelia- [facility]- reports Benji Podlogar sent them an order to drain pt's abdomen. Asking if patient is able to hold the lovenox for procedure? Cordelia is faxing request to Benji Podlogar today. Please let Cordelia know serena. Marli Cook APRN.CNP 08/15/2024 2:57 PM Signed What order are they talking about. We did not order draining of abdomen. Patient wanted referral to see GI and he asked that it be sent to [facility]. Marli Cook APRN.Ngoc Lowe LPN 08/15/2024 4:24 PM Signed Call placed to Cordelia. GI placed the order for the paracentesis. They need to know if patient can hold lovenox x1 so patient can have this procedure done. Ngoc Gonzalez LPN PodMarli parson APRN.CNP 08/15/2024 4:29 PM Signed Hold it for one dose, one day, one week? Marli Cook APRN.Brigette Kramer LPN 08/15/2024 4:43 PM Signed Pt calls in to check on status of message. Pt reports they want him to hold the morning dose. HODA Newell Julie, APRN.CNP 08/16/2024 7:44 AM Signed Please fax approval to hold dose to [facility]. Please let patient know it was sent. Marli Cook APRN.Ngoc Lowe LPN 08/16/2024 8:30 AM Signed Faxed to [phone] with confirmation received. Telephone call placed to patient, answered. Notified form had been faxed. stated the hospital called and everything is ready to go for patient to get procedure done this afternoon. HODA Coyne Julie, APRN.CNP 08/16/2024 8:33 AM Signed Reviewed. Marli Cook APRN.CNP Allergies As of Date: 08/15/2024 Noted Allergy Reaction PIPERACILLIN 08/25/2007 2 - Rash VANCOCIN (VANCOMYCIN) 08/25/2007 2 - Rash LATEX 05/18/2020 2 - Rash SODIUM HYPOCHLORITE SOLUTION 05/18/2020 2 - Rash Date Reviewed: 08/11/2024 Reviewed by: Karen Ford, RT(R) - Fully Assessed Reason for Visit: [facility] question regarding procedure [Other] Prescriptions as of 08/16/2024 - ipratropium-albuterol (DUONEB) 0.5 mg-3 mg(2.5 mg base)/3 mL nebu Inhale 3 mL as instructed every 4 hours as needed (wheezing). Use over 5-15minutes per nebulizer. - benzonatate (TESSALON PERLE) 100 mg capsule Take 1-2 capsules by mouth three times a day as needed for cough. - atorvastatin (LIPITOR) 10 mg tablet Take 1 tablet by mouth daily at bedtime. For cholesterol. - levothyroxine (SYNTHROID) 100 mcg tablet Take 1 tablet by mouth once daily. - lisinopril (ZESTRIL) 5 mg tablet Take 1 tablet by mouth once daily. - metFORMIN (GLUCOPHAGE) 1,000 mg tablet Take 1 tablet by mouth two times a day with meals. . - enoxaparin (LOVENOX) 120 mg/0.8 mL injection Inject 111 mg subcutaneously every 12 hours. - blood sugar diagnostic (BLOOD GLUCOSE TEST) test strip Test blood sugar(s) 1 times daily. Dx: Type 2 DM - Controlled E11.9 Insulin: No - doxepin capsule 10 mg Take 1 capsule by mouth at bedtime as needed (insomnia). - Lancets Test blood sugar(s) 1 times daily. Dx: Type 2 DM - Controlled E11.9 Insulin: No - acetaminophen (TYLENOL) 325 mg tablet Take 2 tablets by mouth every 6 hours as needed for pain. - ACCU-CHEK GUIDE ME GLUCOSE MTR USE TO TEST BLOOD SUGAR - testosterone enanthate (DELATESTRYL) 200 mg/mL injection - CPAP Patient would like to change DME closer to home. Needs mask and supplies. Current PAP device only 3 months old. Need download from device. Lifetime supplies. - Syringe with Needle, Disp, 3 mL 22 gauge x 1 syrg Use as directed to inject testosterone once a month - ALBUTEROL 90 MCG/ACTUATION AEROSOL INHALER Inhale two(2) puffs four(4) times a day for wheezing and shortness of breath. 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 Normal [facility] Gastroenterology Visit Repor ton 08-15-2024 Gastroenterology Visit Report [facility]enter[facility] [address] [place] [address] OFFICE VISIT Date of Service: 08/15/24 MR#: [id number] Acct: [id number] Name: HAL BLANCAS Rep #: [id number] 1 : 1970 Provider: AGUSTIN moss Age/Sex: 54/M Location: [facility] Status: Signed Intake Vital Signs 11/05/23 11:01 08/15/24 11:24 Height 6 ft 2 in 6 ft 2 in Weight: 247 lb 260 lb 8 oz BMI 31.7 33.4 BP 108/68 110/71 Blood Pressure Location Lt brachial Position Sitting Respiration 20 H Pulse 81 77 Pulse Source Monitor Pulse Oximetry (%) 95 96 Oxygen Delivery Method room air room air Intake Visit Reasons: ABDOMINAL PAIN Chief Complaint: hypogonadism, hyperglycemia Records Specialist Required: No Accompanied by: Self Is patient in pain?: No Allergies Bleach (Sodium Hypochlorite) Allergy (Mild, Verified 08/15/24 07:18) RASH piperacillin Allergy (Verified 08/15/24 07:18) Unknown vancomycin Allergy (Verified 08/15/24 07:18) Unknown latex Adverse Reaction (Mild, Verified 08/15/24 07:18) RASH Medications ???Medication ???Instructions ???Recorded ???Confirmed ???Type enoxaparin 120 mg/0.8 mL 120 mg subcut DAILY 06/07/1408/15 History subcutaneous syringe atorvastatin 10 mg tablet 10 mg PO DAILY #1 TAB 05/20/21 Rx syringe with needle 3 mL 22 gauge #6 ea 09/15/23 11/05/23 Rx x 1 doxepin 10 mg capsule 10 mg PO QDAY PRN 11/05/23 5 History levothyroxine 100 mcg tablet 100 mcg PO DAILY #90 tabs 11/05/23 08/15/24 Rx metformin 1,000 mg tablet 1,000 mg PO BID 11/05/23 08/15/24 History testosterone enanthate 200 mg/mL 200 mg IM .COMPLEX #6 mL 11/05/23 08/15/24 Rx intramuscular oil lisinopril 5 mg tablet 5 mg PO DAILY #90 tabs 02/22/24 Rx acetaminophen 325 mg capsule 650 mg PO Q6H PRN 08/15/24 5 History albuterol 90 mcg/actuation aerosol 180 mcg inhalation .QID PRN 07/3108/15/24 History inhaler benzonatate 100 mg capsule 100 mg PO TID PRN 08/15/24 5 History furosemide 40 mg tablet (Lasix) 40 mg PO QAM #30 tabs 08/15/24 Rx ipratropium 0.5 mg-albuterol 3 mg 3 ml inhalation Q4H PRN 08/15/24 08/15/24 History (2.5 mg base)/3 mL nebulization soln rifaximin 550 mg tablet (Xifaxan) 550 mg PO BID #60 tabs 08/15/24 0 08/15/24 Rx spironolactone 25 mg tablet 25 mg PO QDAY #30 tabs 08/15/24 Rx (Aldactone) Nurse's Note: Abdominal pain started in May. Has gained weight all of a sudden, 20lbs in less than 2 weeks. [facility] Medical History Hepatomegaly Hematuria Embolism and thrombosis of unspecified site Esophageal varices DVT of popliteal vein Cirrhosis Chronic lower back pain Cholecystitis Calcified granuloma of lung Adjustment disorder with depressed mood Achilles tendon tear Obesity Diabetes Osteopenia determined by x-ray Lupus anticoagulant disorder Hypothyroidism (acquired) Male hypogonadism History of vertebral compression fracture Splenomegaly Vitamin deficiency Vision problems Pneumonia Hives Frequent headaches Chronic bronchitis BLOOD TRANSFUSION UTI (urinary tract infection) Bone fracture Back problem Surgical History History of orchiectomy, bilateral Family History Other Anesthesia complication BLOOD CLOT Colon cancer Diabetes Hormone deficiency Hypertension Social History Smoking Status: Former smoker Tobacco: How many years used: 2 alcohol intake: current alcohol intake frequency: a few times a month substance use type: does not use HPI HPI Chief Complaint: hypogonadism, hyperglycemia Details: HAL BLANCAS, is a 54 M who presents to the office today for 54y/o male presents for initial consult with complaints of abdominal pain, distension, 20lb weight gain in 2 weeks and occult positive stools. PMH significant for lupus anticoagulant on Lovenox, PE, DVT, DMII, cirrhosis, esophageal varices. COLON 03/13/2021 per PCP records 5 year recall due 03/13/2026 - descending TA EGD 03/13/2021 Grade II varices in the distal esophagus, small in size, negative or H. pylori LABS CBC: 08/11/2024 WBC 1.86, HGB 11.3, PLT 73 WBC 1.86, RBC 3.99, HGB 11.3, HCT 33.2, RDW-CV 16.4, PLT 73, MPV 8.7, Abs Neut 1.19, Abs Lymph 0.47, polychromasia slight, anisocytosis present, ovalocytes few, total protein 5.3, Albumin 3.3, ALP 117, Na 138, K+ 4.1, Cr 0.79, T. BIli 1.3 - occult positive stool 08/11/2024 CT A P with IV contrast 08/11/2024 hepatic cirrhosis, portal hypertension, large esophageal varices and moderate splenomegaly. Ther (more content not included)... Normal [facility] Hepatitis B Surface Antibody on 08-15-2024 HEP B Surf Ab Non-Reactive Normal [facility] Comment on above: Result Comment: <8.5 mIU/mL: Non-Reactive 8.5<= x <11.5 mIU/mL: Indeterminate >=11.5 mIU/mL: Reactive Non Reactive: Inconsistent with immunity less than <10 mIU/mL Reactive: Consistent with immunity greater than or equal to 10 mIU/mL Performed By: #### L 3300.0700, L300.3900, L3890.6202, L3890.6301, L3100.0460, L3890.6102, L3100.0300 #### [facility] [address] [place], [place], [id number] Hepatitis C Antibodyon 08-15 Hepatitis C Ab Non-Reactive Normal Nonreactive [facility] Comment on above: Result Comment: Reac tive: Presumptive evidence of antibodies to HCV. Follow CDC recommendations for supplemental testing. Non-Reactive: Antibodies to HCV were not detected; does not exclude the possibility of exposure to HCV Reactive Results are presumptive evidence of antibodies to HCV. Follow CDC recommendations for supplemental testing. Order confirmation testing: HCV Quant by PCR testing - HCVPCR #[id number] Non Reactive: < 0.8 Equivocal: >/= 0.8 to < 1.0 Reactive: >/= 1.0 The [facility] requires that a reactive/equivocal HCV antibody result be sent out for confirmation. HCV Quant by PCR testing. Performed By: #### L 3300.0700, L300.3900, L3890.6202, L3890.6301, L3100.0460, L3890.6102, L3100.0300 #### [facility] [address] [place], [place], [id number] International normalized rat io (INR) calculationOrdered By: Padmini Bauer on 08-15-2024 INR Coag (Bld) [Relative time] 1.3 {INR} [facility] L3890.6102on 08-15-2024 HEP B Surf Ag Non-Reactive Normal Nonreactive [facility] Comment on above: Result Comment: Reac tive: Presumptive evidence of HBV. Repeatedly reactive samples must be confirmed using a neutralization test ([employer] HBsAg Confirmatory Test) Non-Reactive: HBsAg not detected; does not exclude the possibility of exposure to HBV Performed By: #### L 3300.0700, L300.3900, L3890.6202, L3890.6301, L3100.0460, L3890.6102, L3100.0300 #### [facility] [address] [facility] [place], [address] Laboratory - Microbiology an d Antimicrobial susceptibilityOrdered By: Padmini Bauer on 08-15-2024 HBV surface Ag Ql (S) Non-Reactive Nonreactive [facility] Comment on above: Reactive: Presumptiv e evidence of HBV. Repeatedly reactive samples must be confirmed using a neutralization test (Ele[employer] HBsAg Confirmatory Test)Non-Reactive: HBsAg not detected; does not exclude the possibility of exposure to HBV Prothrombin Time w/INRon INR Coag (PPP) [Relative time] 1.3 {INR} Normal [facility] Comment on above: Performed By: #### L 3300.0700, L300.3900, L3890.6202, L3890.6301, L3100.0460, L3890.6102, L3100.0300 #### [facility] [address] [place], [address] PT Coag (PPP) [Time] 16.8 s High 11.7-14.9 [facility] Comment on above: Performed By: #### L 3300.0700, L300.3900, L3890.6202, L3890.6301, L3100.0460, L3890.6102, L3100.0300 #### [facility] [address] [facility] [place], [address] Prothrombin timeOrdered By: Padmini Bauer on 08-15-2024 PT Coag (PPP) [Time] 16.8 s High 11.7-14.9 [facility] Serum hepatitis B virus core antibody detectionOrdered By: Padmini Bauer on 08-15-2024 HBV core Ab Ql (S) Negative Negative [facility] Serum hepatitis B virus surf kateryna antibody detectionOrdered By: Padmini Bauer on 08-15-2024 HBV surface Ab Ql (S) Non-Reactive [facility] Comment on above: <8.5 mIU/mL: Non-[place] ctive8.5<= x <11.5 mIU/mL: Indeterminate>=11.5 mIU/mL: Reactive Non Reactive: Inconsistent with immunity less than <10 mIU/mL Reactive: Consistent with immunity greater than or equal to 10 mIU/mL CNPCarina 08-12-2024 CNPN Telephone ([facility]) -- HAL BLANCAS ([id number]) 1970 M Date Time Provider Department 08/12/24 JULIÁN URIAS [facility] During your visit today, we recorded the following information about you: Nori Corbin RN 08/12/2024 10:53 AM Signed Faxed referral, imaging, lab results, ov notes, demographics, to [facility] / Dr. Hodge, per patient request. . Pt reports he has an appt with Dr. Hodge on Thursday. Allergies As of Date: 08/12/2024 Noted Allergy Reaction PIPERACILLIN 08/25/2007 2 - Rash VANCOCIN (VANCOMYCIN) 08/25/2007 2 - Rash LATEX 05/18/2020 2 - Rash SODIUM HYPOCHLORITE SOLUTION 05/18/2020 2 - Rash Date Reviewed: 08/11/2024 Reviewed by: Karen Ford, RT(R) - Fully Assessed Reason for Visit: Faxed to [facility] [Other] Prescriptions as of 08/12/2024 - ipratropium-albuterol (DUONEB) 0.5 mg-3 mg(2.5 mg base)/3 mL nebu Inhale 3 mL as instructed every 4 hours as needed (wheezing). Use over 5-15minutes per nebulizer. - benzonatate (TESSALON PERLE) 100 mg capsule Take 1-2 capsules by mouth three times a day as needed for cough. - atorvastatin (LIPITOR) 10 mg tablet Take 1 tablet by mouth daily at bedtime. For cholesterol. - levothyroxine (SYNTHROID) 100 mcg tablet Take 1 tablet by mouth once daily. - lisinopril (ZESTRIL) 5 mg tablet Take 1 tablet by mouth once daily. - metFORMIN (GLUCOPHAGE) 1,000 mg tablet Take 1 tablet by mouth two times a day with meals. . - enoxaparin (LOVENOX) 120 mg/0.8 mL injection Inject 111 mg subcutaneously every 12 hours. - blood sugar diagnostic (BLOOD GLUCOSE TEST) test strip Test blood sugar(s) 1 times daily. Dx: Type 2 DM - Controlled E11.9 Insulin: No - doxepin capsule 10 mg Take 1 capsule by mouth at bedtime as needed (insomnia). - Lancets Test blood sugar(s) 1 times daily. Dx: Type 2 DM - Controlled E11.9 Insulin: No - acetaminophen (TYLENOL) 325 mg tablet Take 2 tablets by mouth every 6 hours as needed for pain. - ACCU-CHEK GUIDE ME GLUCOSE MTR USE TO TEST BLOOD SUGAR - testosterone enanthate (DELATESTRYL) 200 mg/mL injection - CPAP Patient would like to change DME closer to home. Needs mask and supplies. Current PAP device only 3 months old. Need download from device. Lifetime supplies. - Syringe with Needle, Disp, 3 mL 22 gauge x 1 syrg Use as directed to inject testosterone once a month - ALBUTEROL 90 MCG/ACTUATION AEROSOL INHALER Inhale two(2) puffs four(4) times a day for wheezing and shortness of breath. Problem List As Of Date 08/12/2024 Noted Resolved Achilles Bursitis or Tendinitis [M76.60] 05/07/2004 04/26/2009 Phlebitis and Thrombophlebitis of Unspecified S*09/25/2004 04/26/2009 DEPRESSION [F33.9] 11/21/2004 Chronic interstitial cystitis [N30.10] 11/21/2004 Obesity, unspecified [E66.9] 11/21/2004 Other Acquired Calcaneus Deformity [M21.6X9] 01/16/2005 04/26/2009 FISTULA ENTEROVESICAL [N32.1] 03/14/2005 02/02/2009 PNEUMATURIA [N36.8] 03/20/2005 02/02/2009 ASA CLASS III [1003] 07/09/2005 04/26/2009 Urinary Frequency [R35.0] 09/04/2005 04/26/2009 Open Wound of Foot except Toe(s) Alone, Complic*03/05/2006 02/02/2009 Hematuria [599.7] 04/01/2006 04/26/2009 LUPUS ANTICOAGULANT [D68.9] 06/30/2006 Other Specified Disorder of Male Genital Organs*10/23/2006 04/26/2009 History of pulmonary embolism [Z86.711] 01/24/2008 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] 04/26/2009 Left hemiparesis (HCC) [G81.94] 04/26/2009 06/26/2022 Scrotal pain [N50.82] 04/26/2009 Muscle weakness (generalized) [M62.81] 01/10/2010 07/15/2021 Unspecified disorder of skin and subcutaneous t*04/20/2010 Cholelithiasis [K80.20] 05/09/2010 04/10/2016 Polycythemia, secondary [D75.1] 05/13/2010 MARC (obstructive sleep apnea) [G47.33] 09/28/2010 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] 10/08/2010 Hematuria [R31.9] 05/19/2011 Low back pain [M54.50] 05/19/2011 07/15/2021 Difficulty voiding [R39.198] 05/19/2011 Urinary retention [R33.9] 05/19/2011 Painful urination [R30.9] 05/19/2011 Dysuria [R30.0] 05/19/2011 Vitamin D deficiency [E55.9] Cholecystitis with cholelithiasis [K80.10] 06/08/2014 04/10/2016 Obesity [E66.9] Class 2 obesity with serious comorbidity and fabi*04/30/2017 Prediabetes [R73.03] 07/30/2018 12/25/2021 Obesity (BMI 30-39.9) [E66.9] 07/30/2018 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 Normal [facility] CBC W Auto Differential pane l (Bld)on 08-11-2024 Anisocytosis Ql (Bld) Present Normal [facility] Comment on above: Order Comment: Speci men Type: BLOOD SPECIMENOrdering Facility: [facility] Address: [address] [place] [address] Performed By: #### 5 7021-8 ####[facility] [id number] [address] LABORATORYCLIA [id number] [place] [address] [place] Basophils (Bld) [#/Vol] 0.02 10*3/uL Normal <0.11 [facility] Comment on above: Order Comment: Speci cherelle Type: BLOOD SPECIMENOrdering Facility: [facility] Address: [address] [place] [address] Performed By: #### 5 7021-8 ####[facility] [id number] [address] LABORATORYCLIA [id number] [place] [address] [place] Basophils/100 WBC (Bld) 1.0 % Normal [facility] Comment on above: Order Comment: Monii men Type: BLOOD SPECIMENOrdering Facility: [facility] Address: [address] [place] [address] Performed By: #### 5 7021-8 ####[facility] MILLTOWNCLIA [id number] [address] LABORATORYCLIA [id number] [place] [address] [place] Differential cell count method Nom (Bld) Manual Normal [facility] Comment on above: Order Comment: Speci men Type: BLOOD SPECIMENOrdering Facility: [facility] Address: [address] [place] [address] Performed By: #### 5 7021-8 ####[facility] MILLWNCLIA [id number] [address] LABORATORYCLIA [id number] [place] [address] [place] Eosinophils (Bld) [#/Vol] 0.07 10*3/uL Normal <0.46 [facility] Comment on above: Order Comment: Speci men Type: BLOOD SPECIMENOrdering Facility: [facility] Address: [address] [place] [address] Performed By: #### 5 7021-8 ####[facility] RIDGEWNCLIA [id number] [address] LABORATORYCLIA [id number] [place] [address] [place] Eosinophils/100 WBC (Bld) 4.0 % Normal [facility] Comment on above: Order Comment: Speci men Type: BLOOD SPECIMENOrdering Facility: [facility] Address: [address] [place] [address] Performed By: #### 5 7021-8 ####[facility] RIDGEWNCLIA [id number] [address] LABORATORYCLIA [id number] [place] [address] [place] Erythrocyte distribution width (RBC) [Ratio] 16.4 % High 11.5-15.0 [facility] Comment on above: Order Comment: Speci men Type: BLOOD SPECIMENOrdering Facility: [facility] Address: [address] [place] [address] Performed By: #### 5 7021-8 ####[facility] [id number] [address] LABORATORYCLIA [id number] [place] [address] [place] Hematocrit (Bld) [Volume fraction] 33.2 % Low 39.0-51.0 [facility] Comment on above: Order Comment: Speci men Type: BLOOD SPECIMENOrdering Facility: [facility] Address: [address] [place] [address] Performed By: #### 5 7021-8 ####[facility] [id number] [address] LABORATORYCLIA [id number] [place] [address] [place] Hemoglobin (Bld) [Mass/Vol] 11.3 g/dL Low 13.0-17.0 [facility] Comment on above: Order Comment: Speci men Type: BLOOD SPECIMENOrdering Facility: [facility] Address: [address] [place] [address] Performed By: #### 5 7021-8 ####[facility] [id number] [address] LABORATORYIA [id number] [place] [address] [place] Lymphocytes (Bld) [#/Vol] 0.47 10*3/uL Low 1.00-4.00 [facility] Comment on above: Order Comment: Speci men Type: BLOOD SPECIMENOrdering Facility: [facility] Address: [address] [place] [address] Performed By: #### 5 7021-8 ####[facility] MILLTOWNCLIA [id number] [address] LABORATORYCLIA [id number] [address] STATES [facility] Lymphocytes/100 WBC (Bld) 24.0 % Normal [facility] Comment on above: Order Comment: Speci men Type: BLOOD SPECIMENOrdering Facility: [facility] Address: [address] [place] [address] Performed By: #### 5 7021-8 ####[facility] MILLTOWNCLIA [id number] [address] LABORATORYCLIA [id number] [place] [address] [place] MCH (RBC) [Entitic mass] 28.3 pg Normal 26.0-34.0 [facility] Comment on above: Order Comment: Speci men Type: BLOOD SPECIMENOrdering Facility: [facility] Address: [address] [place] [address] Performed By: #### 5 7021-8 ####[facility] MILLTOWNCLIA [id number] [address] LABORATORYCLIA [id number] [place] [address] [place] MCHC (RBC) [Mass/Vol] 34.0 g/dL Normal 30.5-36.0 [facility] Comment on above: Order Comment: Speci men Type: BLOOD SPECIMENOrdering Facility: [facility] Address: [address] [place] [address] Performed By: #### 5 7021-8 ####[facility] MILLTOWNCLIA [id number] [address] LABORATORYCLIA [id number] [place] [address] [place] MCV (RBC) [Entitic vol] 83.2 fL Normal 80.0-100.0 [facility] Comment on above: Order Comment: Speci men Type: BLOOD SPECIMENOrdering Facility: [facility] Address: [address] [place] [address] Performed By: #### 5 7021-8 ####[facility] RIDGEWNCLIA [id number] [address] LABORATORYCLIA [id number] [place] [address] [place] Monocytes (Bld) [#/Vol] 0.11 10*3/uL Normal <0.87 [facility] Comment on above: Order Comment: Speci men Type: BLOOD SPECIMENOrdering Facility: [facility] Address: [address] [place] [address] Performed By: #### 5 7021-8 ####[facility] P[facility] RIDGEWNCLIA [id number] [address] LABORATORYCLIA [id number] [address] [place] Monocytes/100 WBC (Bld) 6.0 % Normal [facility] Comment on above: Order Comment: Speci men Type: BLOOD SPECIMENOrdering Facility: [facility] Address: [address] [place] [address] Performed By: #### 5 7021-8 ####[facility] RIDGEWNCLIA [id number] [address] LABORATORYCLIA [id number] [place] [address] [place] Neutrophils (Bld) [#/Vol] 1.19 10*3/uL Low 1.45-7.50 [facility] Comment on above: Order Comment: Speci men Type: BLOOD SPECIMENOrdering Facility: [facility] Address: [address] [place] [address] Performed By: #### 5 7021-8 ####[facility] MILLTOWNCLIA [id number] [address] LABORATORYCLIA [id number] [place] [address] [place] Neutrophils/100 WBC (Bld) 64.0 % Normal [facility] Comment on above: Order Comment: Speci men Type: BLOOD SPECIMENOrdering Facility: [facility] Address: [address] [place] [address] Performed By: #### 5 7021-8 ####[facility] RIDGEWNCLIA [id number] [address] LABORATORYCLIA [id number] [place] [address] [place] Nucleated RBC (Bld) [#/Vol] 10*3/uL Normal <0.01 [facility] Comment on above: Order Comment: Speci men Type: BLOOD SPECIMENOrdering Facility: [facility] Address: [address] [place] [address] Performed By: #### 5 7021-8 ####[facility] KOREYTOWNCLIA [id number] [address] LABORATORYCLIA [id number] [place] [address] [place] Nucleated RBC/100 WBC (Bld) [Ratio] 0.0 /100 WBC Normal [facility] Comment on above: Order Comment: Speci men Type: BLOOD SPECIMENOrdering Facility: [facility] Address: [address] [place] [address] Performed By: #### 5 7021-8 ####[facility] RIDGEWNCLIA [id number] [address] LABORATORYCLIA [id number] [place] [address] [place] Ovalocytes LM Ql (Bld) Few Normal Cl [facility] Comment on above: Order Comment: Speci men Type: BLOOD SPECIMENOrdering Facility: [facility] Address: [address] [place] [address] Performed By: #### 5 7021-8 ####[facility] MILLTOWNCLIA [id number] [address] LABORATORYCLIA [id number] [place] [address] [place] Platelet mean volume (Bld) [Entitic vol] 8.7 fL Low 9.0-12.7 [facility] Comment on above: Order Comment: Speci men Type: BLOOD SPECIMENOrdering Facility: [facility] Address: [address] [place] [address] Performed By: #### 5 7021-8 ####[facility] RIDGEWNCLIA [id number] [address] LABORATORYCLIA [id number] [place] [address] [place] Platelets (Bld) [#/Vol] 73 10*3/uL Low 150-400 [facility] Comment on above: Order Comment: Speci men Type: BLOOD SPECIMENOrdering Facility: [facility] Address: [address] [place] [address] Result Comment: No c lot detected. Performed By: #### 5 7021-8 ####[facility] MILLWNCLIA [id number] [address] LABORATORYCLIA [id number] [place] [address] [place] Platelets Estimate (Bld) [#/Vol] Decreased Normal [facility] Comment on above: Order Comment: Speci men Type: BLOOD SPECIMENOrdering Facility: [facility] Address: [address] [place] [address] Performed By: #### 5 7021-8 ####[facility] MILLTOWNCLIA [id number] [address] LABORATORYCLIA [id number] [place] [address] [place] Polychromasia LM Ql (Bld) Slight Normal [facility] Comment on above: Order Comment: Speci men Type: BLOOD SPECIMENOrdering Facility: [facility] Address: [address] [place] [address] Performed By: #### 5 7021-8 ####[facility]ITALNCLIA [id number] [address] LABORATORYCLIA [id number] [place] [address] [place] RBC (Bld) [#/Vol] 3.99 10*6/uL Low 4.20-6.00 [facility] Comment on above: Order Comment: Speci men Type: BLOOD SPECIMENOrdering Facility: [facility] Address: [address] [place] [address] Performed By: #### 5 7021-8 ####[facility]ITALNCLIA [id number] [address] LABORATORYCLIA [id number] [place] [address] [place] RED CELL MORPH Reviewed: see result s of individual morphologies Normal [facility] Comment on above: Order Comment: Speci men Type: BLOOD SPECIMENOrdering Facility: [facility] Address: [address] [place] [address] Performed By: #### 5 7021-8 ####[facility] MILLWNCLIA [id number] [address] LABORATORYCLIA [id number] [address] Variant lymphocytes/100 WBC (Bld) 1.0 % Normal [facility] Comment on above: Order Comment: Speci men Type: BLOOD SPECIMENOrdering Facility: [facility] Address: [address] [place] [address] Performed By: #### 5 7021-8 ####[facility] [id number] [address] LABORATORYCLIA [id number] [address] WBC (Bld) [#/Vol] 1.86 10*3/uL Low 3.70-11.00 [facility] Comment on above: Order Comment: Speci men Type: BLOOD SPECIMENOrdering Facility: [facility] Address: [address] [place] [address] Performed By: #### 5 7021-8 ####[facility] [id number] [address] LABORATORYCLIA [id number] [address] Abner 08-11-2024 YOSSI Telephone (BROOKS) -- HAL BLANCAS ([id number]) 1970 M Date Time Provider Department 08/11/24 PODLOGARMARLI During your visit today, we recorded the following information about you: Lupe Hammond RN 08/11/2024 12:02 PM Signed Radiology calls and wanted provider to know that there are actionable findings on patient's CT Scan. Please review and advise, ALPA Velasquez Christopher B, MD 08/11/2024 12:[address] scan shows cirrhosis with portal hypertension, esophageal varices, moderately enlarged spleen and non obstructing thrombosis of portal veins. The thrombosis is a new finding compared to prior CT scan. Also noted moderate to large volume ascites. If patient is not seeing GI/Hepatology already, he needs to get an appointment SERENA. New referral order placed. Also placed referral order for vascular. Needs to discuss possible anticoagulation with these specialists and may need to have ascites drained. If patient has developed severe abdominal pain, fever/chills, bloody vomiting, blood in stool, dark black stool he would need to be seen in the ER immediately instead. Alejandra Angel MA 08/11/2024 2:25 PM Signed Patient informed in detail and verbalized understanding. He was transferred to scheduling while on phone to set up appointment. MASOUD Downey Sherrie 08/12/2024 9:19 AM Signed Spoke with patient and he declined to arrange appointments with us as the are out of the area, he stated he has made some calls local and will update us once he knows more. Allergies As of Date: 08/11/2024 Noted Allergy Reaction PIPERACILLIN 08/25/2007 2 - Rash VANCOCIN (VANCOMYCIN) 08/25/2007 2 - Rash LATEX 05/18/2020 2 - Rash SODIUM HYPOCHLORITE SOLUTION 05/18/2020 2 - Rash Date Reviewed: 08/11/2024 Reviewed by: Karen Ford, RT(R) - Fully Assessed Primary Visit Diagnosis:Cirrhosis of liver with ascites, unspecified hepatic cirrhosis type (HCC) [K74.60, R18.8] Other Visit Diagnoses:Portal hypertension (HCC) [K76.6] Secondary esophageal varices without bleeding (HCC) [I85.10] Portal vein thrombosis [I81] Order(s):CONSULT TO HEPATOLOGY [4968508] Order #: [id number]: 1 FUTURE CONSULT TO VASCULAR MEDICINE [978159] Order #: [id number]: 1 FUTURE Prescriptions as of 08/12/2024 - ipratropium-albuterol (DUONEB) 0.5 mg-3 mg(2.5 mg base)/3 mL nebu Inhale 3 mL as instructed every 4 hours as needed (wheezing). Use over 5-15minutes per nebulizer. - benzonatate (TESSALON PERLE) 100 mg capsule Take 1-2 capsules by mouth three times a day as needed for cough. - atorvastatin (LIPITOR) 10 mg tablet Take 1 tablet by mouth daily at bedtime. For cholesterol. - levothyroxine (SYNTHROID) 100 mcg tablet Take 1 tablet by mouth once daily. - lisinopril (ZESTRIL) 5 mg tablet Take 1 tablet by mouth once daily. - metFORMIN (GLUCOPHAGE) 1,000 mg tablet Take 1 tablet by mouth two times a day with meals. . - enoxaparin (LOVENOX) 120 mg/0.8 mL injection Inject 111 mg subcutaneously every 12 hours. - blood sugar diagnostic (BLOOD GLUCOSE TEST) test strip Test blood sugar(s) 1 times daily. Dx: Type 2 DM - Controlled E11.9 Insulin: No - doxepin capsule 10 mg Take 1 capsule by mouth at bedtime as needed (insomnia). - Lancets Test blood sugar(s) 1 times daily. Dx: Type 2 DM - Controlled E11.9 Insulin: No - acetaminophen (TYLENOL) 325 mg tablet Take 2 tablets by mouth every 6 hours as needed for pain. - ACCU-CHEK GUIDE ME GLUCOSE MTR USE TO TEST BLOOD SUGAR - testosterone enanthate (DELATESTRYL) 200 mg/mL injection - CPAP Patient would like to change DME closer to home. Needs mask and supplies. Current PAP device only 3 months old. Need download from device. Lifetime supplies. - Syringe with Needle, Disp, 3 mL 22 gauge x 1 syrg Use as directed to inject testosterone once a month - ALBUTEROL 90 MCG/ACTUATION AEROSOL INHALER Inhale two(2) puffs four(4) times a day for wheezing and shortness of breath. Problem List As Of Date 08/11/2024 Noted Resolved Achilles Bursitis or Tendinitis [M76.60] 05/07/2004 04/26/2009 Phlebitis and Thrombophlebitis of Unspecified S*09/25/2004 04/26/2009 DEPRESSION [F33.9] 11/21/2004 Chronic interstitial cystitis [N30.10] 11/21/2004 Obesity, unspecified [E66.9] 11/21/2004 Other Acquired Calcaneus Deformity [M21.6X9] 01/16/2005 04/26/2009 FISTULA ENTEROVESICAL [N32.1] 03/14/2005 02/02/2009 PNEUMATURIA [N36.8] 03/20/2005 02/02/2009 ASA CLASS III [1003] 07/09/2005 04/26/2009 Urinary Frequency [R35.0] 09/04/2005 04/26/2009 Open Wound of Foot except Toe(s) Alone, Complic*03/05/2006 02/02/2009 Hematuria [599.7] 04/01/2006 04/26/2009 LUPUS ANTICOAGULANT [D68.9] 06/30/2006 Other Specified Disorder of Male Genital Organs*10/23/2006 04/26/2009 History of pulmonary embolism [Z86.711] 01/24/2008 Chromo (more content not included)... Normal [facility] CT ABD/PEL W IVCONon 12-[address] ABD/PEL W IVCON * * *Final Report* * * DATE OF EXAM: Aug 11 2024 11:13AM [facility] 0530 - CT ABD/PEL W IVCON / PROCEDURE REASON: multiple diagnoses * * * * Physician Interpretation * * * * EXAMINATION: CT ABDOMEN AND PELVIS WITH IV CONTRAST CLINICAL HISTORY: Cirrhosis. Bloating, abdominal pain, and swelling. TECHNIQUE: CT of the abdomen and pelvis was performed using standard technique, scanning from just above the dome of the diaphragm to the symphysis pubis. MQ: CTAP_3 Contrast: IV: 100 ml of Omnipaque 350 Oral: 10 ml of Omni 240 10-25ml diluted with water CT Radiation dose: Integrated Dose-length product (DLP) for this visit = 1127 mGy*cm. CT Dose Reduction Employed: Automated exposure control(AEC) and iterative recon COMPARISON: None. RESULT: Liver: Nodular contour of the liver with hypertrophy of the caudate lobe and left lateral segment, compatible with cirrhosis. No definite hepatic mass detected. However, the evaluation is limited on single phase imaging. The liver could be better evaluated with an MRI of the liver with and without contrast if indicated. There is stigmata of portal hypertension, including large esophageal varices. Recanalized paraumbilical vein is present. There is nonocclusive thrombus present within the right and left portal veins, main portal vein, superior mesenteric vein, and splenic vein. Biliary: No bile duct dilation. Spleen: No mass. Moderate splenomegaly with the spleen measuring 21.9 cm in length. Pancreas: No mass or duct dilation. Adrenals: No mass. Kidneys: Unremarkable. GI tract: No bowel obstruction. Mild diverticulosis of the proximal sigmoid colon. Lymph nodes: No abdominal or pelvic lymphadenopathy. Mesentery/Peritoneum: Moderate to large volume of ascites. Retroperitoneum: No mass. Vasculature: Inferior vena cava filter with tip below level renal veins. Pelvis: Testicular prostheses. Bones/Soft Tissues: Degenerative changes. Superior endplate compression deformity of the L4 vertebral body which is new when compared to the prior exam. There is approximately 30% loss of vertebral body height. Sacral nerve stimulator. Lower thorax: Limited evaluation of the lower chest demonstrates a moderate left pleural effusion. Benign calcified granuloma in the lingula. Localizer images: No additional findings. IMPRESSION: 1. Hepatic cirrhosis with stigmata of portal hypertension, including large esophageal varices and moderate splenomegaly. There is nonocclusive thrombus present within the right and left portal veins, main portal vein, superior mesenteric vein, and splenic vein. The venous thrombosis is new when compared to the prior CT scan. Would advise gastroenterology/hepatolog y referral at this time for management. 2. Moderate to large volume of ascites. Moderate left pleural effusion. ACTIONABLE RESULT: FOLLOW-UP Acuity: Actionable Findings: Liver Routing Code: LV_1 Recommendation: SUBSPECIALTY CONSULTATION SUGGESTED Time Frame: as soon as possible, when the patient's clinical state allows. COMMUNICATION: Results will be communicated with the ordering provider via [facility] staff message or phone message by Imaging Support Services within 2 business days of report finalization. --END OF FINDING-- Algorithms for management of incidental imaging findings can be found on the [facility] Intranet Sharepoint site at: [email or web address] [email or web address] We are in the process of contacting the ordering provider regarding results of this exam at the time of the dictation. Wood Preparation Supervisor: GRABIEL Transcribe Date/Time: Aug 11 2024 11:23A Dictated by : ADRIENNE KING MD This examination was interpreted and the report reviewed and electronically signed by: ADRIENNE KING MD on Aug 11 2024 11:33AM EST [id number] ACTIONABLE Invalid Interpretation Code [facility] CT Abdomen and Pelvis W cont rast IVOrdered By: Cc Provider on 08-11-2024 Interpretation and review of laboratory results Abnormal [facility] Radiology Result ACTIONABLE Abnormal [facility] Comment on above: This report contains an incidental or actionable finding. This finding may be a new finding separate from the reason your provider ordered the imaging test or it may be an already known finding that needs additional or continued follow-up. Because of this incidental or actionable finding, you may need another test (imaging or a different type of test). Please contact your provider for the next steps. [facility] CT Abdomen and Pelvis W cont rast Epifanio 08-11-2024 IMPRESSION: 1. Hepatic cirrhosis with stigmata of portal hypertension, including large esophageal varices and moderate splenomegaly. There is nonocclusive thrombus present within the right and left portal veins, main portal vein, superior mesenteric vein, and splenic vein. The venous thrombosis is new when compared to the prior CT scan. Would advise gastroenterology/hepatolog y referral at this time for management. 2. Moderate to large volume of ascites. Moderate left pleural effusion. ACTIONABLE RESULT: FOLLOW-UP Acuity: Actionable Findings: Liver Routing Code: LV_1 Recommendation: SUBSPECIALTY CONSULTATION SUGGESTED Time Frame: as soon as possible, when the patient's clinical state allows. COMMUNICATION: Results will be communicated with the ordering provider via [facility] staff message or phone message by Imaging Support Services within 2 business days of report finalization. --END OF FINDING-- Algorithms for management of incidental imaging findings can be found on the [facility] Intranet Sharepoint site at: [email or web address] ngs%20at%20Imaging/Forms/A [email or web address] We are in the process of contacting the ordering provider regarding results of this exam at the time of the dictation. Wood Preparation Supervisor: GRABIEL Transcribe Date/Time: Aug 11 2024 11:23A Dictated by : ADRIENNE KING MD This examination was interpreted and the report reviewed and electronically signed by: ADRIENNE KING MD on Aug 11 2024 11:33AM [facility] DIVISION OF RADIOLOGY * * *Final Report* * * DATE OF EXAM: Aug 11 2024 11:13AM [facility] 0530 - CT ABD/PEL W IVCON / PROCEDURE REASON: multiple diagnoses * * * * Physician Interpretation * * * * EXAMINATION: CT ABDOMEN AND PELVIS WITH IV CONTRAST CLINICAL HISTORY: Cirrhosis. Bloating, abdominal pain, and swelling. TECHNIQUE: CT of the abdomen and pelvis was performed using standard technique, scanning from just above the dome of the diaphragm to the symphysis pubis. MQ: CTAP_3 Contrast: IV: 100 ml of Omnipaque 350 Oral: 10 ml of Omni 240 10-25ml diluted with water CT Radiation dose: Integrated Dose-length product (DLP) for this visit = 1127 mGy*cm. CT Dose Reduction Employed: Automated exposure control(AEC) and iterative recon COMPARISON: None. RESULT: Liver: Nodular contour of the liver with hypertrophy of the caudate lobe and left lateral segment, compatible with cirrhosis. No definite hepatic mass detected. However, the evaluation is limited on single phase imaging. The liver could be better evaluated with an MRI of the liver with and without contrast if indicated. There is stigmata of portal hypertension, including large esophageal varices. Recanalized paraumbilical vein is present. There is nonocclusive thrombus present within the right and left portal veins, main portal vein, superior mesenteric vein, and splenic vein. Biliary: No bile duct dilation. Spleen: No mass. Moderate splenomegaly with the spleen measuring 21.9 cm in length. Pancreas: No mass or duct dilation. Adrenals: No mass. Kidneys: Unremarkable. GI tract: No bowel obstruction. Mild diverticulosis of the proximal sigmoid colon. Lymph nodes: No abdominal or pelvic lymphadenopathy. Mesentery/Peritoneum: Moderate to large volume of ascites. Retroperitoneum: No mass. Vasculature: Inferior vena cava filter with tip below level renal veins. Pelvis: Testicular prostheses. Bones/Soft Tissues: Degenerative changes. Superior endplate compression deformity of the L4 vertebral body which is new when compared to the prior exam. There is approximately 30% loss of vertebral body height. Sacral nerve stimulator. Lower thorax: Limited evaluation of the lower chest demonstrates a moderate left pleural effusion. Benign calcified granuloma in the lingula. Localizer images: No additional findings. DIVISION OF RADIOLOGY Provider, [facility] - 08/11/2024 * * *Final Report* * * DATE OF EXAM: Aug 11 2024 11:13AM [facility] 0530 - CT ABD/PEL W IVCON / PROCEDURE REASON: multiple diagnoses * * * * Physician Interpretation * * * * EXAMINATION: CT ABDOMEN AND PELVIS WITH IV CONTRAST CLINICAL HISTORY: Cirrhosis. Bloating, abdominal pain, and swelling. TECHNIQUE: CT of the abdomen and pelvis was performed using standard technique, scanning from just above the dome of the diaphragm to the symphysis pubis. MQ: CTAP_3 Contrast: IV: 100 ml of Omnipaque 350 Oral: 10 ml of Omni 240 10-25ml diluted with water CT Radiation dose: Integrated Dose-length product (DLP) for this visit = 1127 mGy*cm. CT Dose Reduction Employed: Automated exposure control(AEC) and iterative recon COMPARISON: None. RESULT: Liver: Nodular contour of the liver with hypertrophy of the caudate lobe and left lateral segment, compatible with cirrhosis. No definite hepatic mass detected. However, the evaluation is limited on single phase imaging. The liver could be better evaluated with an MRI of the liver with and without contrast if indicated. There is stigmata of portal hypertension, including large esophageal varices. Recanalized paraumbilical vein is present. There is nonocclusive thrombus present within the right and left portal veins, main portal vein, superior mesenteric vein, and splenic vein. Biliary: No bile duct dilation. Spleen: No mass. Moderate splenomegaly with the spleen measuring 21.9 cm in length. Pancreas: No mass or duct dilation. Adrenals: No mass. Kidneys: Unremarkable. GI tract: No bowel obstruction. Mild diverticulosis of the proximal sigmoid colon. Lymph nodes: No abdominal or pelvic lymphadenopathy. Mesentery/Peritoneum: Moderate to large volume of ascites. Retroperitoneum: No mass. Vasculature: Inferior vena cava filter with tip below level renal veins. Pelvis: Testicular prostheses. Bones/Soft Tissues: Degenerative changes. Superior endplate compression deformity of the L4 vertebral body which is new when compared to the prior exam. There is approximately 30% loss of vertebral body height. Sacral nerve stimulator. Lower thorax: Limited evaluation of the lower chest demonstrates a moderate left pleural effusion. Benign calcified granuloma in the lingula. Localizer images: No additional findings. IMPRESSION IMPRESSION: 1. Hepatic cirrhosis with stigmata of portal hypertension, including large esophageal varices and moderate splenomegaly. There is nonocclusive thrombus present within the right and left portal veins, main portal vein, superior mesenteric vein, and splenic vein. The venous thrombosis is new when compared to the prior CT scan. Would advise gastroenterology/hepatolog y referral at this time for management. 2. Moderate to large volume of ascites. Moderate left pleural effusion. ACTIONABLE RESULT: FOLLOW-UP Acuity: Actionable Findings: Liver Routing Code: LV_1 Recommendation: SUBSPECIALTY CONSULTATION SUGGESTED Time Frame: as soon as possible, when the patient's clinical state allows. COMMUNICATION: Results will be communicated with the ordering provider via [facility] staff message or phone message by Imaging Support Services within 2 business days of report finalization. --END OF FINDING-- Algorithms for management of incidental imaging findings can be found on the [facility] Intranet Sharepoint site at: [email or web address] [email or web address] We are in the process of contacting the ordering provider regarding results of this exam at the time of the dictation. Wood Preparation Supervisor: GRABIEL Transcribe Date/Time: Aug 11 2024 11:23A Dictated by : ADRIENNE KING MD This examination was interpreted and the report reviewed and electronically signed by: ADRIENNE KING MD on Aug 11 2024 11:33AM EST [facility] Radiology Study observation (narrative) [facility] Comprehensive metabolic 2000 panelon 08-11-2024 Albumin [Mass/Vol] 3.3 g/dL Low 3.9-4.9 [facility] Comment on above: Order Comment: Speci men Type: BLOOD SPECIMENOrdering Facility: [facility] Address: [address] [place] [address] Performed By: #### 2 4323-8 ####[facility] [id number] [place] [address] [place] ALP [Catalytic activity/Vol] 117 U/L High 38-113 [facility] Comment on above: Order Comment: Speci men Type: BLOOD SPECIMENOrdering Facility: [facility] Address: [address] [place] [address] Performed By: #### 2 4323-8 ####[facility] [id number] [place] [address] [place] ALT [Catalytic activity/Vol] 12 U/L Normal 10-54 [facility] Comment on above: Order Comment: Speci men Type: BLOOD SPECIMENOrdering Facility: [facility] Address: [address] [place] [address] Performed By: #### 2 4323-8 ####[facility] [id number] [place] [address] [place] Anion gap [Moles/Vol] 11 mmol/L Normal 8-15 [facility] Comment on above: Order Comment: Speci men Type: BLOOD SPECIMENOrdering Facility: [facility] Address: [address] [place] [address] Performed By: #### 2 4323-8 ####[facility] [id number] [place] [address] [place] AST [Catalytic activity/Vol] 21 U/L Normal 14-40 [facility] Comment on above: Order Comment: Speci men Type: BLOOD SPECIMENOrdering Facility: [facility] Address: [address] [place] [address] Performed By: #### 2 4323-8 ####[facility] MILL[facility]OWNCLIA [id number] [place] [address] [place] Bilirubin [Mass/Vol] 1.3 mg/dL Normal 0.2-1.3 [facility] Comment on above: Order Comment: Speci men Type: BLOOD SPECIMENOrdering Facility: [facility] Address: [address] [place] [address] Performed By: #### 2 4323-8 ####[facility] MILLTOWNCLIA [id number] [place] [address] [place] Calcium [Mass/Vol] 8.5 mg/dL Normal 8.5-10.2 [facility] Comment on above: Order Comment: Speci men Type: BLOOD SPECIMENOrdering Facility: [facility] Address: [address] [place] [address] Performed By: #### 2 4323-8 ####[facility] MILLWNCLIA [id number] [place] [address] [place] Chloride [Moles/Vol] 105 mmol/L Normal 98-107 [facility] Comment on above: Order Comment: Speci men Type: BLOOD SPECIMENOrdering Facility: [facility] Address: [address] [place] [address] Performed By: #### 2 4323-8 ####[facility] MILLTOWNCLIA [id number] [place] [address] [place] CO2 [Moles/Vol] 22 mmol/L Normal 22-30 [facility] Comment on above: Order Comment: Speci men Type: BLOOD SPECIMENOrdering Facility: [facility] Address: [address] [place] [address] Performed By: #### 2 4323-8 ####[facility] MILLTOWNCLIA [id number] [place] [address] [place] Creatinine [Mass/Vol] 0.79 mg/dL Normal 0.73-1.22 [facility] Comment on above: Order Comment: Malena villarreal Type: BLOOD SPECIMENOrdering Facility: [facility] Address: [address] [place] [address] Performed By: #### 2 4323-8 ####[facility] [id number] [place] [address] [place] Creatinine and Glomerular filtration rate.predicted panel (S/P/Bld) 105 mL/min/1.73m??? Normal >=60 [facility] Comment on above: Order Comment: Malena villarreal Type: BLOOD SPECIMENOrdering Facility: [facility] Address: [address] [place] [address] Result Comment: Francia mated Glomerular Filtration Rate (eGFR) is calculated using the 2020 CKD-EPI creatinine equation. This equation utilizes serum creatinine, sex, and age as parameters. The creatinine assay has traceable calibration to isotope dilution-mass spectrometry. Refer to KDIGO guidelines for clinical interpretation. In patients with unstable renal function, e.g. those with acute kidney injury, the eGFR may not accurately reflect actual GFR. Performed By: #### 2 4323-8 ####[facility] [id number] [place] [address] [place] Glucose [Mass/Vol] 130 mg/dL High 74-99 [facility] Comment on above: Order Comment: Malena villarreal Type: BLOOD SPECIMENOrdering Facility: [facility] Address: [address] [place] [address] Result Comment: The [place] Diabetes Association (ADA) provides guidance for cutoff values for fasting glucose and random glucose. The ADA defines fasting as no caloric intake for at least 8 hours. Fasting plasma glucose results between 100 to 125 mg/dL indicate increased risk for diabetes (prediabetes). Fasting plasma glucose results greater than or equal to 126 mg/dL meet the criteria for diagnosis of diabetes. In the absence of unequivocal hyperglycemia, results should be confirmed by repeat testing. In a patient with classic symptoms of hyperglycemia or hyperglycemic crisis, random plasma glucose results greater than or equal to 200 mg/dL meet the criteria for diagnosis of diabetes. Reference: Standards of Medical Care in Diabetes 2016, [place] [employer] Association. Diabetes Care. 2016.39(Suppl 1). Performed By: #### 2 4323-8 ####[facility] [id number] [place] [address] [place] Potassium [Moles/Vol] 4.1 mmol/L Normal 3.7-5.1 [facility] Comment on above: Order Comment: Speci men Type: BLOOD SPECIMENOrdering Facility: [facility] Address: [address] [place] [address] Performed By: #### 2 4323-8 ####[facility] [id number] [place] [address] [place] Protein [Mass/Vol] 5.3 g/dL Low 6.3-8.0 [facility] Comment on above: Order Comment: Speci men Type: BLOOD SPECIMENOrdering Facility: [facility] Address: [address] [place] [address] Performed By: #### 2 4323-8 ####[facility] [id number] [place] [address] [place] Sodium [Moles/Vol] 138 mmol/L Normal 136-144 [facility] Comment on above: Order Comment: Speci men Type: BLOOD SPECIMENOrdering Facility: [facility] Address: [address] [place] [address] Performed By: #### 2 4323-8 ####[facility] [id number] [place] [address] [place] Urea nitrogen [Mass/Vol] 12 mg/dL Normal 9-24 [facility] Comment on above: Order Comment: Speci men Type: BLOOD SPECIMENOrdering Facility: [facility] Address: [address] [place], [place] [address] [id number] Performed By: #### 2 4323-8 ####[facility] [id number] [place] [address] [place] Hemoccult Stl Ql IAon 2024 Lower GI hemoglobin IA Ql (Stl) Positive Abnormal Negative [facility] Comment on above: Order Comment: Speci men Type: STOOL SPECIMENOrdering Facility: [facility] Address: [address] [place] [id number] Performed By: #### 2 9771-3 ####[facility] LABCLIA [id number] [place] [id number] [place] CNOVon 08-10-2024 CNOV Office Visit (BROOKS ) -- HAL BLANCAS ([id number]) 1970 M Date Time Provider Department 08/10/24 2:20 PM MARLI COOK During your visit today, we recorded the following information about you: Temperature Pulse Respiration Blood pressure 98.1 degrees 86/minute 18/minute 128/68 Weight 121.4 kg Marli Cook APRN.CNP 08/10/2024 2:48 PM Signed 08/10/2024 Patient presents with: Abdominal Pain: All over x2 months; increasingly getting worse Recording using Adocia software for draft documentation of the visit was discussed with the patient/authorized product sales representative; all questions welcomed and answered. Patient/authorized product sales representative agreed to proceed SUBJECTIVE: This is a 54 year old that is here today for Above Complaints.. Abdominal Pain: - Reports RUQ pain described as feeling like being tasered, occurring periodically. - Abdominal swelling noted, described as really hard. - Denies nausea, emesis, jaundice, hematemesis, or diarrhea. - Reports chills, but denies fevers. - Denies any other bleeding symptoms. - Bowel movements are regular, occurring daily. - Occasional black stools lasting 1-2 days, then returning to normal; no recent episodes. - Denies lincoln-colored stools or itching Weight Gain: - Hal noticed rapid weight gain. - Weight increased from 257 lbs to 267 lbs over the past few months. Left Foot Swelling: - Hal observed swelling in the left foot. - Continues to take Lovenox. Diabetes Mellitus: - Blood glucose levels decreased from 130 mg/dL to 110 mg/dL recently. - Currently taking Metformin. PAST MEDICAL HISTORY Diagnosis Date Abdominal pain, generalized Achilles tendon tear Adjustment disorder with depressed mood Bronchitis, mucopurulent recurrent (HCC) 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 Riggs Diabetes mellitus type II (HCC) DVT of popliteal vein (HCC) 2004 Embolism and thrombosis of unspecified site 01/2004 left, positive lupus anticoagulant- using Lovenox, Previously seeing Dr. Wong Esophageal varices (HCC) Hematuria work up in progress as of 09/24/04 Hepatomegaly Hypogonadism in male 2/[address] Luna Hypothyroidism Dr. Luna-endo Left-sided muscle weakness intermittent, has had extensive work up Obesity MARC (obstructive sleep apnea) Seeing Dr. Yin, using CPAP Osteopenia of neck of left femur 06/18/2020 Other cirrhosis of liver (HCC) / [place]. Refused liver biopsy PMH - PAST MEDICAL HISTORY OF scrotal swelling Pulmonary embolism (HCC) Recurrent deep vein thrombosis (DVT) (HCC) Retention of urine, unspecified Snoring Splenomegaly Thrombocytopenia Urethral stricture 2020 Urethral stricture s/p urethroplasty 06/2021. Vitamin D deficiency ALLERGIES Piperacillin, Vancocin [Vancomycin], Latex, and Sodium Hypochlorite Solution MEDICATIONS Current Outpatient Medications Medication Sig iv contrast (will be provided with radiology test) CT ABD/PEL -Inject, intravenously, once for 1 dose.No IV access, insert saline lock prior to the beginning of sedation, infusion, injection of imaging exam. Discontinue saline lock post exam. If Pt. has a central line or IVAD, may access for administration according to line specific nursing protocol. Once exam is complete flush line and de-access according to line specific nursing protocol in the CT contrast administration guidelines link. ipratropium-albuterol (DUONEB) 0.5 mg-3 mg(2.5 mg base)/3 mL nebu Inhale 3 mL as instructed every 4 hours as needed (wheezing). Use over 5-15minutes per nebulizer. benzonatate (TESSALON PERLE) 100 mg capsule Take 1-2 capsules by mouth three times a day as needed for cough. atorvastatin (LIPITOR) 10 mg tablet Take 1 tablet by mouth daily at bedtime. For cholesterol. levothyroxine (SYNTHROID) 100 mcg tablet Take 1 tablet by mouth once daily. lisinopril (ZESTRIL) 5 mg tablet Take 1 tablet by mouth once daily. metFORMIN (GLUCOPHAGE) 1,000 mg tablet Take 1 tablet by mouth two times a day with meals. . enoxaparin (LOVENOX) 120 mg/0.8 mL injection Inject 111 mg subcutaneously every 12 hours. blood sugar diagnostic (BLOOD GLUCOSE TEST) test strip Test blood sugar(s) 1 times daily. Dx: Type 2 DM - Controlled E11.9 Insulin: No doxepin capsule 10 mg Take 1 capsule by mouth at bedtime as needed (insomnia). Lancets Test blood sugar(s) 1 times daily. Dx: Type 2 DM - Controlled E11.9 Insulin: No acetaminophen (TYLENOL) 325 mg tablet Take 2 tablets by mouth every 6 hours as needed for pain. ACCU-CHEK GUIDE ME GLUCOSE MTR USE TO TEST BLOOD SUGAR testosterone enanthate (DELATESTRYL) 200 mg/mL injection CPAP Patient would like to change DME closer to home. Needs mask and supplies. Current PAP de (more content not included)... Normal [facility] CNOVon 06-20-2024 CNOV Office Visit (INTMWS ) -- HAL BLANCAS ([id number]) 1970 M Date Time Provider Department 06/20/24 2:40 PM KRYSTIN LEVI INTMWS During your visit today, we recorded the following information about you: Temperature Pulse Respiration Blood pressure 97.5 degrees 85/minute 16/minute 106/66 Weight 117 kg Krystin Levi APRN.[facility] 06/20/2024 3:36 PM Signed SUBJECTIVE Hal Blancas is a 54 year old male who presents with 2 weeks of symptoms, 4 days of cough that are stable. Symptoms include: Fever (>=100.4F): No or Chills: No Cough: Yes with wheezing, difficult to control, interrupting sleep Shortness of breath: No or Difficulty breathing: No Fatigue: Yes Muscle aches: No Headache: No New loss of smell or taste: No Sore throat: No Nasal congestion: Yes or Rhinorrhea: Yes Nausea: Yes or Vomiting: No Diarrhea: No OTC meds/remedies that patient has tried: Mucinex, OTC cough syrup, and OTC cold medicine. High risk category assessment Hypertension Exposures: Sick contacts? No Family or close contacts with confirmed/probable COVID-19 in last 14 days? No He reports that he quit smoking about 36 years ago. His smoking use included cigarettes. He started smoking about 38 years ago. He has a 4 pack-year smoking history. He has never used smokeless tobacco. OBJECTIVE BP 106/66 Pulse 85 Temp 36.4 ?C (97.5 ?F) Resp 16 Wt 117 kg (257 lb 15 oz) SpO2 96% BMI 33.46 kg/m? PHYSICAL EXAM: BP 106/66 Pulse 85 Temp 36.4 ?C (97.5 ?F) Resp 16 Wt 117 kg (257 lb 15 oz) SpO2 96% BMI 33.46 kg/m? General appearance: tired/ill appearing, alert, cooperative, pleasant, in no acute distress Head: Normocephalic Eyes: conjunctiva/corneas normal Ears: R TM - clear with good landmarks, nl light reflex, L TM - clear with good landmarks, nl light reflex Nose: clear Oropharynx: moist without lesions, mild erythema to GPA, no exudate, poor dentition Neck: supple and small, benign anterior cervical nodes bilaterally Heart: regular rate and rhythm, without murmur Lungs: clear to auscultation, without rales or wheeze, good air exchange, TTP left lateral/posterior lower ribs ASSESSMENT/PLAN (R05.1) Acute cough (primary encounter diagnosis) ASSESSMENT/PLAN: 1. Acute cough - ICD9: 786.2, ICD10: R05.1 Recommend supportive care, plenty of rest and push fluids - IPRATROPIUM 0.5 MG-ALBUTEROL 3 MG (2.5 MG BASE)/3 ML NEBULIZATION SOLN - BENZONATATE 100 MG CAPSULE - XR CHEST 2V FRONTAL/LAT Krystin Levi APRN.[employer] Medical Decision Making: Problems: Low: Acute, uncomplicated illness or injury Data: Unique test(s) ordered: 1 Risk: Moderate: Drug management Medical Decision Making Level: 3 - Low Allergies As of Date: 06/20/2024 Noted Allergy Reaction PIPERACILLIN 08/25/2007 2 - Rash VANCOCIN (VANCOMYCIN) 08/25/2007 2 - Rash LATEX 05/18/2020 2 - Rash SODIUM HYPOCHLORITE SOLUTION 05/18/2020 2 - Rash Date Reviewed: 06/20/2024 Reviewed by: Krystin Levi APRN.LATRINE [employer]ANER - Fully Assessed Reason for Visit: Cough [28] Primary Visit Diagnosis:Acute cough [R05.1] Order(s):ipratropium-albut thais (DUONEB) 0.5 mg-3 mg(2.5 mg base)/3 mL nebuInhale 3 mL as instructed every 4 hours as needed (wheezing). Use over 5-15minutes per nebulizer.Disp: 50 eachRfl: 1 benzonatate (TESSALON PERLE) 100 mg capsuleTake 1-2 capsules by mouth three times a day as needed for cough.Disp: 60 capsuleRfl: 1 XR CHEST 2V FRONTAL/LAT [[id number]] Order #: [id number] FUTURE doxycycline (VIBRA-TABS) 100 mg tabletTake 1 tablet by mouth two times a day for 7 days.Disp: 14 tabletRfl: 0 Prescriptions as of 06/20/2024 - ipratropium-albuterol (DUONEB) 0.5 mg-3 mg(2.5 mg base)/3 mL nebu Inhale 3 mL as instructed every 4 hours as needed (wheezing). Use over 5-15minutes per nebulizer. - benzonatate (TESSALON PERLE) 100 mg capsule Take 1-2 capsules by mouth three times a day as needed for cough. - doxycycline (VIBRA-TABS) 100 mg tablet Take 1 tablet by mouth two times a day for 7 days. - atorvastatin (LIPITOR) 10 mg tablet Take 1 tablet by mouth daily at bedtime. For cholesterol. - levothyroxine (SYNTHROID) 100 mcg tablet Take 1 tablet by mouth once daily. - lisinopril (ZESTRIL) 5 mg tablet Take 1 tablet by mouth once daily. - metFORMIN (GLUCOPHAGE) 1,000 mg tablet Take 1 tablet by mouth two times a day with meals. . - enoxaparin (LOVENOX) 120 mg/0.8 mL injection Inject 111 mg subcutaneously every 12 hours. - blood sugar diagnostic (BLOOD GLUCOSE TEST) test strip Test blood sugar(s) 1 times daily. Dx: Type 2 DM - Controlled E11.9 Insulin: No - doxepin capsule 10 mg Take 1 capsule by mouth at bedtime as needed (insomnia). - Lancets Test blood sugar(s) 1 times daily. Dx: Type 2 DM - Controlled E11.9 Insulin: No - acetaminophen (TYLENOL) 325 mg tablet Take 2 tablets by mouth every 6 hours as needed for pain (more content not included)... Normal [facility] XR CHEST 2V FRONTAL/LATon XR CHEST 2V FRONTAL/LAT * * *Final Report* * * DATE OF EXAM: Jun 20 2024 3:46PM WOX [id number] - XR CHEST 2V FRONTAL/LAT / PROCEDURE REASON: Acute cough * * * * Physician Interpretation * * * * EXAMINATION: CHEST RADIOGRAPH (2 VIEW FRONTAL and LATERAL) CLINICAL HISTORY: Acute cough MQ: XC2_6 EXAM DATE/TIME: 06/20/2024 3:46 PM COMPARISON: 09/11/2022 RESULT: Lines, tubes, and devices: None. Lungs and pleura: Slight hazy opacity at the left lung base suggesting subsegmental atelectasis or infiltrate. No pleural effusions. No evidence of pneumothorax. Cardiomediastinal silhouette: Stable cardiomediastinal silhouette. Bones and soft tissues: Visualized portions of the bony thorax appear intact. IMPRESSION: Small focus of subsegmental atelectasis or infiltrate in the left lung base. Wood Preparation Supervisor: GRABIEL Transcribe Date/Time: Jun 20 2024 3:50P Dictated by : HAL MOORE MD This examination was interpreted and the report reviewed and electronically signed by: HAL MOORE MD on Jun 20 2024 3:51PM EST [id number] Normal [facility] XR Chest PA and Lateralon IMPRESSION: Small focus of subsegmental atelectasis or infiltrate in the left lung base. Wood Preparation Supervisor: PSCVictor Hugo Transcribe Date/Time: Jun 20 2024 3:50P Dictated by : HAL MOORE MD This examination was interpreted and the report reviewed and electronically signed by: HAL MOORE MD on Jun 20 2024 3:51PM EST DIVISION OF RADIOLOGY * * *Final Report* * * DATE OF EXAM: Jun 20 2024 3:46PM WOX [id number] - XR CHEST 2V FRONTAL/LAT / PROCEDURE REASON: Acute cough * * * * Physician Interpretation * * * * EXAMINATION: CHEST RADIOGRAPH (2 VIEW FRONTAL & LATERAL) CLINICAL HISTORY: Acute cough MQ: XC2_6 EXAM DATE/TIME: 06/20/2024 3:46 PM COMPARISON: 09/11/2022 RESULT: Lines, tubes, and devices: None. Lungs and pleura: Slight hazy opacity at the left lung base suggesting subsegmental atelectasis or infiltrate. No pleural effusions. No evidence of pneumothorax. Cardiomediastinal silhouette: Stable cardiomediastinal silhouette. Bones and soft tissues: Visualized portions of the bony thorax appear intact. DIVISION OF RADIOLOGY Provider, [facility] - 06/20/2024 * * *Final Report* * * DATE OF EXAM: Jun 20 2024 3:46PM WOX 5291 - XR CHEST 2V FRONTAL/LAT / PROCEDURE REASON: Acute cough * * * * Physician Interpretation * * * * EXAMINATION: CHEST RADIOGRAPH (2 VIEW FRONTAL & LATERAL) CLINICAL HISTORY: Acute cough MQ: XC2_6 EXAM DATE/TIME: 06/20/2024 3:46 PM COMPARISON: 09/11/2022 RESULT: Lines, tubes, and devices: None. Lungs and pleura: Slight hazy opacity at the left lung base suggesting subsegmental atelectasis or infiltrate. No pleural effusions. No evidence of pneumothorax. Cardiomediastinal silhouette: Stable cardiomediastinal silhouette. Bones and soft tissues: Visualized portions of the bony thorax appear intact. IMPRESSION IMPRESSION: Small focus of subsegmental atelectasis or infiltrate in the left lung base. Wood Preparation Supervisor: GRABIEL Transcribe Date/Time: Jun 20 2024 3:50P Dictated by : HAL MOORE MD This examination was interpreted and the report reviewed and electronically signed by: HAL MOORE MD on Jun 20 2024 3:51PM EST [facility] Radiology Study observation (narrative) [facility] XR Chest PA and LateralOrder ed By: [facility] Provider on 06-20-2024 [facility] 25(OH)D3 SerPl-mCncon 2024 25-hydroxyvitamin D3 [Mass/Vol] 42.4 ng/mL Normal 31.0-80.0 [facility] Comment on above: Order Comment: Speci men Type: BLOOD SPECIMENOrdering Facility: [facility] Address: [address] [place] [address] Result Comment: Clas sification of 25 [place] Vitamin D status: Deficiency/Insufficiency: < or = 30 ng/ml. Sufficiency/Optimal Levels: 31-80 ng/mL Toxicity: > 100 ng/mL. Test performed by chemiluminescent immunoassay. Performed By: #### 1 989-3 ####[facility] LABIA [id number] [place] [address] [place] CBC W Auto Differential pane l (Bld)on 04-06-2024 Basophils (Bld) [#/Vol] 10*3/uL Normal <0.11 [facility] Comment on above: Order Comment: Speci men Type: BLOOD SPECIMENOrdering Facility: [facility] Address: [address] [place] [address] Performed By: #### 5 7021-8 ####[facility] LABIA [id number] [address] [place] Basophils/100 WBC (Bld) 0.9 % Normal [facility] Comment on above: Order Comment: Speci men Type: BLOOD SPECIMENOrdering Facility: [facility] Address: [address] [place] [address] Performed By: #### 5 7021-8 ####[facility] LABCLIA [id number] [place] [address] [place] Differential cell count method Nom (Bld) Auto Normal [facility] Comment on above: Order Comment: Speci men Type: BLOOD SPECIMENOrdering Facility: [facility] Address: [address] [place] [address] Performed By: #### 5 7021-8 ####[facility] LABCLIA [id number] [place] [address] [place] Eosinophils (Bld) [#/Vol] 0.12 10*3/uL Normal <0.46 [facility] Comment on above: Order Comment: Speci men Type: BLOOD SPECIMENOrdering Facility: [facility] Address: [address] [place] [address] Performed By: #### 5 7021-8 ####[facility] LABCLIA [id number] [place] [address] [place] Eosinophils/100 WBC (Bld) 5.5 % Normal [facility] Comment on above: Order Comment: Speci men Type: BLOOD SPECIMENOrdering Facility: [facility] Address: [address] [place] [address] Performed By: #### 5 7021-8 ####[facility] LABCLIA [id number] [place] [address] [place] Erythrocyte distribution width (RBC) [Ratio] 15.6 % High 11.5-15.0 [facility] Comment on above: Order Comment: Speci men Type: BLOOD SPECIMENOrdering Facility: [facility] Address: [address] [place] [address] Performed By: #### 5 7021-8 ####[facility] LABCLIA [id number] [place] [address] [place] Hematocrit (Bld) [Volume fraction] 36.4 % Low 39.0-51.0 [facility] Comment on above: Order Comment: Speci men Type: BLOOD SPECIMENOrdering Facility: [facility] Address: [address] [place] [address], [place] [address] Performed By: #### 5 7021-8 ####[facility] LABCLIA [id number] [address] [address] [place] Hemoglobin (Bld) [Mass/Vol] 12.4 g/dL Low 13.0-17.0 [facility] Comment on above: Order Comment: Speci men Type: BLOOD SPECIMENOrdering Facility: [facility] Address: [address] [place] [address], [place] [address] Performed By: #### 5 7021-8 ####[facility] LABCLIA [id number] [place] [address] [place] Immature granulocytes (Bld) [#/Vol] 10*3/uL Normal <0.10 [facility] Comment on above: Order Comment: Speci men Type: BLOOD SPECIMENOrdering Facility: [facility] Address: [address] [place] [address], [place] [address] Performed By: #### 5 7021-8 ####[facility] LABCLIA [id number] [place] [address] [place] Immature granulocytes/100 WBC (Bld) 0.0 % Normal [facility] Comment on above: Order Comment: Speci men Type: BLOOD SPECIMENOrdering Facility: [facility] Address: [address] [place] [address], [place] [address] Performed By: #### 5 7021-8 ####[facility] LABCLIA [id number] [place] [id number] [place] Lymphocytes (Bld) [#/Vol] 0.69 10*3/uL Low 1.00-4.00 [facility] Comment on above: Order Comment: Speci men Type: BLOOD SPECIMENOrdering Facility: [facility] Address: [address] [place] [address] Performed By: #### 5 7021-8 ####[facility] LABCLIA [id number] [place] [address] [place] Lymphocytes/100 WBC (Bld) 31.8 % Normal [facility] Comment on above: Order Comment: Speci men Type: BLOOD SPECIMENOrdering Facility: [facility] Address: [address] [place] [address] Performed By: #### 5 7021-8 ####[facility] LABCLIA [id number] [place] [address] [place] MCH (RBC) [Entitic mass] 28.8 pg Normal 26.0-34.0 [facility] Comment on above: Order Comment: Speci men Type: BLOOD SPECIMENOrdering Facility: [facility] Address: [address] [place] [address] Performed By: #### 5 7021-8 ####[facility] LABCLIA [id number] [address] [place] MCHC (RBC) [Mass/Vol] 34.1 g/dL Normal 30.5-36.0 [facility] Comment on above: Order Comment: Speci men Type: BLOOD SPECIMENOrdering Facility: [facility] Address: [address] [place] [address] Performed By: #### 5 7021-8 ####[facility] LABCLIA [id number] [place] [address] [place] MCV (RBC) [Entitic vol] 84.7 fL Normal 80.0-100.0 [facility] Comment on above: Order Comment: Speci men Type: BLOOD SPECIMENOrdering Facility: [facility] Address: [address] [place] [address] Performed By: #### 5 7021-8 ####[facility] LABCLIA [id number] [place] [address] [place] Monocytes (Bld) [#/Vol] 0.24 10*3/uL Normal <0.87 [facility] Comment on above: Order Comment: Speci men Type: BLOOD SPECIMENOrdering Facility: [facility] Address: [address] [place] [address], [place] [address] Performed By: #### 5 7021-8 ####[facility] LABCLIA [id number] [place] [address] [place] Monocytes/100 WBC (Bld) 11.1 % Normal [facility] Comment on above: Order Comment: Speci men Type: BLOOD SPECIMENOrdering Facility: [facility] Address: [address] [place] [address], [place] [address] Performed By: #### 5 7021-8 ####[facility] LABCLIA [id number] [place] [address] [place] Neutrophils (Bld) [#/Vol] 1.10 10*3/uL Low 1.45-7.50 [facility] Comment on above: Order Comment: Speci men Type: BLOOD SPECIMENOrdering Facility: [facility] Address: [address] [place] [address], [place] [address] Performed By: #### 5 7021-8 ####[facility] LABCLIA [id number] [place] [address] [place] Neutrophils/100 WBC (Bld) 50.7 % Normal [facility] Comment on above: Order Comment: Speci men Type: BLOOD SPECIMENOrdering Facility: [facility] Address: [address] [place] [address], [place] [address] Performed By: #### 5 7021-8 ####[facility] LABCLIA [id number] [place] [id number] [place] Nucleated RBC (Bld) [#/Vol] 10*3/uL Normal <0.01 [facility] Comment on above: Order Comment: Speci men Type: BLOOD SPECIMENOrdering Facility: [facility] Address: [address] [place] [address], [place] [address] Performed By: #### 5 7021-8 ####[facility] LABCLIA [id number] [place] [address] [place] Nucleated RBC/100 WBC (Bld) [Ratio] 0.0 /100 WBC Normal [facility] Comment on above: Order Comment: Speci men Type: BLOOD SPECIMENOrdering Facility: [facility] Address: [address] [place] [address] Performed By: #### 5 7021-8 ####[facility] LABCLIA [id number] [place] [address] [place] Platelet mean volume (Bld) [Entitic vol] 9.2 fL Normal 9.0-12.7 [facility] Comment on above: Order Comment: Speci men Type: BLOOD SPECIMENOrdering Facility: [facility] Address: [address] [place] [address] Performed By: #### 5 7021-8 ####[facility] LABCLIA [id number] [place] [address] [place] Platelets (Bld) [#/Vol] 55 10*3/uL Low 150-400 [facility] Comment on above: Order Comment: Speci men Type: BLOOD SPECIMENOrdering Facility: [facility] Address: [address] [place] [address] Result Comment: No c lot detected. Performed By: #### 5 7021-8 ####[facility] LABIA [id number] [place] [address] [place] RBC (Bld) [#/Vol] 4.30 10*6/uL Normal 4.20-6.00 [facility] Comment on above: Order Comment: Speci men Type: BLOOD SPECIMENOrdering Facility: [facility] Address: [address] [place] [address] Performed By: #### 5 7021-8 ####[facility] LABCLIA [id number] [place] [address] [place] WBC (Bld) [#/Vol] 2.17 10*3/uL Low 3.70-11.00 [facility] Comment on above: Order Comment: Speci men Type: BLOOD SPECIMENOrdering Facility: [facility] Address: [address] [facility], [place] [address] Performed By: #### 5 7021-8 ####[facility] LABCLIA [id number] [address] [id number] [address] [place] [facility] CNOVon 04-06-2024 CNOV Office Visit (FAMPWS ) -- HAL BLANCAS ([id number]) 1970 M Date Time Provider Department 04/06/24 9:40 AM MARLI COOK During your visit today, we recorded the following information about you: Pulse Respiration Blood pressure Weight 74/minute 18/minute 98/66 110.6 kg Marli Cook APRN.BUSINESS OPERATIONS COORDINATOR 08/10/2024 1:33 PM Addendum 04/05/2024 Patient presents with: F/U 6 months SUBJECTIVE: This is a 53 year old that is here today for Above Complaints. Follows with Dr. Raad Luna, endocrinology for hx of diabetes, hypogonadism, and hypothyroidism. Taking medications as prescribed without side effects. Last follow-up on 11/09/2023. No medication changes made at that time. No follow-up scheduled at this time. He reports Dr. Luna has blood work ordered for him and he will be completing today. Checks Blood sugars evero other day with readings of 105-130. Denies visual changes, polyuria or polydipsia Follows with hematology for hx of splenomegaly, thrombocytopenia, neutropenia and lupus anticoagulant disorder. Last office visit on 05/23/2022. Follow-up has been recommended but not scheduled as of yet. Dr. Wong also wanted him to follow-up with GI regarding cirrhosis, portal HTN and splenomegaly however patient reports they want him to have EGD and surgery and he does not want to do that at this time. Taking Lovenox as prescribed. Denies bleeding symptoms of hematochezia, melana, hematemesis, hemoptysis or hematuria MARC: using CPAP nightly. For the most part feels refreshed in the morning. Uses Doxepin to help with insomnia which doesn't always help HYPERLIPIDEMIA: Patient is taking medications: Yes. Patient is watching diet: No. Patient denies myalgias: Yes. 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 Riggs Diabetes mellitus type II (HCC) DVT of popliteal vein (HCC) 2004 Embolism and thrombosis of unspecified site 01/2004 left, positive lupus anticoagulant- using Lovenox, Previously seeing Dr. Wong Esophageal varices (HCC) Hematuria work up in progress as of 09/24/04 Hepatomegaly Hypogonadism in male 2/[address] Luna Hypothyroidism Dr. Luna-jagdish Left-sided muscle weakness intermittent, has had extensive work up Obesity MARC (obstructive sleep apnea) Seeing Dr. Yin, using CPAP Osteopenia of neck of left femur 06/18/2020 Other cirrhosis of liver (HCC) 2/2 BANEGAS. Refused liver biopsy PMH - PAST MEDICAL HISTORY OF scrotal swelling Pulmonary embolism (HCC) Recurrent deep vein thrombosis (DVT) (HCC) Retention of urine, unspecified Snoring Splenomegaly Thrombocytopenia (HCC) Urethral stricture 2020 Urethral stricture s/p urethroplasty 06/2021. Vitamin D deficiency ALLERGIES Piperacillin, Vancocin [Vancomycin], Latex, and Sodium Hypochlorite Solution MEDICATIONS Current Outpatient Medications Medication Sig atorvastatin (LIPITOR) 10 mg tablet Take 1 tablet by mouth daily at bedtime. For cholesterol. doxepin capsule 10 mg Take 1 capsule by mouth at bedtime as needed (insomnia). enoxaparin (LOVENOX) 120 mg/0.8 mL injection Inject 111 mg subcutaneously every 12 hours. levothyroxine (SYNTHROID) 100 mcg tablet Take 1 tablet by mouth once daily. lisinopril (ZESTRIL) 5 mg tablet Take 1 tablet by mouth once daily. metFORMIN (GLUCOPHAGE) 1,000 mg tablet Take 1 tablet by mouth two times a day with meals. . blood sugar diagnostic (BLOOD GLUCOSE TEST) test strip Test blood sugar(s) 1 times daily. Dx: Type 2 DM - Controlled E11.9 Insulin: No ipratropium-albuterol (DUONEB) 0.5 mg-3 mg(2.5 mg base)/3 mL nebu Inhale 3 mL as instructed every 4 hours as needed (wheezing). Use over 5-15minutes per nebulizer. acetaminophen (TYLENOL) 325 mg tablet Take 2 tablets by mouth every 6 hours as needed for pain. ACCU-CHEK GUIDE ME GLUCOSE MTR USE TO TEST BLOOD SUGAR testosterone enanthate (DELATESTRYL) 200 mg/mL injection Lancets lancets Test blood sugar(s) 1 times daily. Dx: Type 2 DM - Controlled E11.9 Insulin: No CPAP Patient would like to change DME closer to home. Needs mask and supplies. Current PAP device only 3 months old. Need download from device. Lifetime supplies. Syringe with Needle, Disp, 3 mL 22 gauge x 1 syrg Use as directed to inject testosterone once a month ALBUTEROL 90 MCG/ACTUATION AEROSOL INHALER Inhale two(2) puffs four(4) times a day for wheezing and shortness of breath. No current facility-administered medications for this visit. Medications and allergies reviewed by this provider. SOCIAL HISTORY Social History To (more content not included)... Normal [facility] Comprehensive metabolic 2000 panelon 04-06-2024 Albumin [Mass/Vol] 3.9 g/dL Normal 3.9-4.9 [facility] Comment on above: Order Comment: Speci men Type: BLOOD SPECIMENOrdering Facility: [facility] Address: [address] [place] [address], [place] [id number] Performed By: #### 2 4323-8, 61744-3, 3024-7, 3016-3 ####[facility] LABCLIA [id number] [place] [address] [place] ALP [Catalytic activity/Vol] 104 U/L Normal 38-113 [facility] Comment on above: Order Comment: Speci men Type: BLOOD SPECIMENOrdering Facility: [facility] Address: [address] [place] [address], [place] [id number] Performed By: #### 2 4323-8, 53035-7, 3024-7, 3016-3 ####[facility] LABCLIA [id number] [address] [address] [place] ALT [Catalytic activity/Vol] 25 U/L Normal 10-54 [facility] Comment on above: Order Comment: Speci men Type: BLOOD SPECIMENOrdering Facility: [facility] Address: [address] [place] [address], [place] [address] Performed By: #### 2 4323-8, 55384-7, 3024-7, 3016-3 ####[facility] LABIA [id number] [place] [id number] [place] Anion gap [Moles/Vol] 10 mmol/L Normal 8-15 [facility] Comment on above: Order Comment: Speci men Type: BLOOD SPECIMENOrdering Facility: [facility] Address: [address] [place] [address], [place] [address] Performed By: #### 2 4323-8, 75691-7, 3024-7, 3016-3 ####[facility] LABIA [id number] [place] [id number] [place] AST [Catalytic activity/Vol] 21 U/L Normal 14-40 [facility] Comment on above: Order Comment: Speci men Type: BLOOD SPECIMENOrdering Facility: [facility] Address: [address] [place] [address], [place] [address] Performed By: #### 2 4323-8, 87949-4, 3024-7, 3016-3 ####[facility] LABIA [id number] [address] [address] [place] Bilirubin [Mass/Vol] 1.2 mg/dL Normal 0.2-1.3 [facility] Comment on above: Order Comment: Speci men Type: BLOOD SPECIMENOrdering Facility: [facility] Address: [address] [place] [address], [place] [address] Performed By: #### 2 4323-8, 54021-8, 3024-7, 3016-3 ####[facility] LABCLIA [id number] [address] [address] [place] Calcium [Mass/Vol] 8.7 mg/dL Normal 8.5-10.2 [facility] Comment on above: Order Comment: Speci men Type: BLOOD SPECIMENOrdering Facility: [facility] Address: [address] [place] [address], [place] [address] Performed By: #### 2 4323-8, 31182-6, 3024-7, 3016-3 ####[facility] LABCLIA [id number] [address] [address] [place] Chloride [Moles/Vol] 104 mmol/L Normal 98-107 [facility] Comment on above: Order Comment: Speci men Type: BLOOD SPECIMENOrdering Facility: [facility] Address: [address] [place] [address], [place] [address] Performed By: #### 2 4323-8, 16564-9, 3024-7, 3016-3 ####[facility] LABCLIA [id number] [address] [address] [place] CO2 [Moles/Vol] 24 mmol/L Normal 22-30 [facility] Comment on above: Order Comment: Speci men Type: BLOOD SPECIMENOrdering Facility: [facility] Address: [address] [place] [address], [place] [address] Performed By: #### 2 4323-8, 50505-9, 3024-7, 3016-3 ####[facility] LABCLIA [id number] [address] [address] [place] Creatinine [Mass/Vol] 0.94 mg/dL Normal 0.73-1.22 [facility] Comment on above: Order Comment: Speci men Type: BLOOD SPECIMENOrdering Facility: [facility] Address: [address] [place] [address], [place] [address] Performed By: #### 2 4323-8, 27174-6, 3024-7, 6-3 ####[facility] LABIA [id number] [place] [id number] [place] Creatinine and Glomerular filtration rate.predicted panel (S/P/Bld) 96 mL/min/1.73m??? Normal >=60 [facility] Comment on above: Order Comment: Malena villarreal Type: BLOOD SPECIMENOrdering Facility: [facility] Address: [address] [place] [address] Result Comment: Francia mated Glomerular Filtration Rate (eGFR) is calculated using the 2020 CKD-EPI creatinine equation. This equation utilizes serum creatinine, sex, and age as parameters. The creatinine assay has traceable calibration to isotope dilution-mass spectrometry. Refer to KDIGO guidelines for clinical interpretation. In patients with unstable renal function, e.g. those with acute kidney injury, the eGFR may not accurately reflect actual GFR. Performed By: #### 2 4323-8, 03760-9, 3023-08, 3015-3 ####[facility] LABIA [id number] [place] [id number] [place] Glucose [Mass/Vol] 178 mg/dL High 74-99 [facility] Comment on above: Order Comment: Malena villarreal Type: BLOOD SPECIMENOrdering Facility: [facility] Address: [address] [place] [address], [place] [address] Result Comment: The [place] [employer] (ADA) provides guidance for cutoff values for fasting glucose and random glucose. The ADA defines fasting as no caloric intake for at least 8 hours. Fasting plasma glucose results between 100 to 125 mg/dL indicate increased risk for diabetes (prediabetes). Fasting plasma glucose results greater than or equal to 126 mg/dL meet the criteria for diagnosis of diabetes. In the absence of unequivocal hyperglycemia, results should be confirmed by repeat testing. In a patient with classic symptoms of hyperglycemia or hyperglycemic crisis, random plasma glucose results greater than or equal to 200 mg/dL meet the criteria for diagnosis of diabetes. Reference: Standards of Medical Care in Diabetes 2016, [place] [employer]. Diabetes Care. 2016.39(Suppl 1). Performed By: #### 2 4323-8, 36154-4, 302-7, 6-3 ####[facility] LABCLIA [id number] [address] [address] [place] Potassium [Moles/Vol] 4.2 mmol/L Normal 3.7-5.1 [facility] Comment on above: Order Comment: Speci men Type: BLOOD SPECIMENOrdering Facility: [facility] Address: [address] [place] [address], [place] [address] Performed By: #### 2 4323-8, 26139-3, 3023-7, 6-3 ####[facility] LABCLIA [id number] [address] [address] [place] Protein [Mass/Vol] 6.1 g/dL Low 6.3-8.0 [facility] Comment on above: Order Comment: Speci men Type: BLOOD SPECIMENOrdering Facility: [facility] Address: [address] [place] [address], [place] [address] Performed By: #### 2 4323-8, 43318-4, 3023-08, 3015-3 ####[facility] LABIA [id number] [address] [address] [place] Sodium [Moles/Vol] 138 mmol/L Normal 136-144 [facility] Comment on above: Order Comment: Speci men Type: BLOOD SPECIMENOrdering Facility: [facility] Address: [address] [place] [address], [place] [address] Performed By: #### 2 4323-8, 40724-9, 3023-7, 3015-3 ####[facility] LABIA [id number] [address] [address] [place] Urea nitrogen [Mass/Vol] 18 mg/dL Normal 9-24 [facility] Comment on above: Order Comment: Speci men Type: BLOOD SPECIMENOrdering Facility: [facility] Address: [address] [place] [address], [place] [address] Performed By: #### 2 4323-8, 23508-8, 3023-7, 3016-3 ####[facility] LABCLIA [id number] [facility] [place] [id number] [place] Cortgordon SerPl-ncon 04-06-19 25 Cortisol [Mass/Vol] 7.2 ug/dL Normal 4.8-19.5 [facility] Comment on above: Order Comment: Speci men Type: BLOOD SPECIMENOrdering Facility: [facility] Address: [address] [place] [address], [place] [address] Result Comment: Prov ided reference range is from 6-10 AM sample collection time. Cortisol Reference Range: 6-10 AM = 4.8-19.5 ug/dL, 4-8 PM = 2.5-11.9 ug/dL Performed By: #### 2 143-6 ####[facility] LABCLIA [id number] [facility] [place] [address] [place] Lipid [facility] panelon 5 Cholesterol [Mass/Vol] 105 mg/dL Normal <200 [facility] Comment on above: Order Comment: Speci men Type: BLOOD SPECIMENOrdering Facility: [facility] Address: [address] [place] [address], [place] [address] Result Comment: <200 mg/dL, Desirable 200-239 mg/dL, Borderline high >239 mg/dL, High Performed By: #### 2 4323-8, 53876-0, 3023-08, 3 ####[facility] LABCLIA [id number] [address] [place] Cholesterol in HDL [Mass/Vol] 46 mg/dL Normal >39 [facility] Comment on above: Order Comment: Speci men Type: BLOOD SPECIMENOrdering Facility: [facility] Address: [address] [place] [address], [place] [address] Result Comment: 40-5 9 mg/dL, Acceptable >59 mg/dL, High: Negative risk factor for coronary heart disease <40 mg/dL, Low: Positive risk factor for coronary heart disease Performed By: #### 2 4323-8, 83826-8, 7, 3015-3 ####[facility] LABCLIA [id number] [address] [address] [place] Cholesterol in LDL [Mass/Vol] 49 mg/dL Normal <100 [facility] Comment on above: Order Comment: Speci men Type: BLOOD SPECIMENOrdering Facility: [facility] Address: [address] [facility], [place] [address] Result Comment: <100 mg/dL, Optimal 100-129 mg/dL, Near optimal/above optimal 130-159 mg/dL, Borderline high 160-189 mg/dL, High >189 mg/dL, Very high Secondary prevention optimal LDL Cholesterol levels are recommended to be < 70 mg/dL Performed By: #### 2 4323-8, 13725-0, 3024-7, 3016-3 ####[facility] LABCLIA [id number] [address] [address] [place] Cholesterol in LDL/Cholesterol in HDL [Mass ratio] 1.07 {ratio} Normal <2.54 [facility] Comment on above: Order Comment: Speci men Type: BLOOD SPECIMENOrdering Facility: [facility] Address: [address] [facility], [place] [address] Result Comment: Mayo don: 1. National Cholesterol Education Program ATP III Guideline At-A-Glance Quick Desk Reference: National Heart, Lung, and Blood [place]. National Institutes of Health. 2001: NIH Publication No. 01-3305. 2. An International Atherosclerosis Society position paper: global recommendations for the management of dyslipidemia: executive summary, Atherosclerosis. 2014: 232(2):410-413. Performed By: #### 2 4323-8, 24123-9, 3024-7, 3016-3 ####[facility] LABCLIA [id number] [address] [address] [place] Cholesterol in VLDL [Mass/Vol] 10 mg/dL Normal <30 [facility] Comment on above: Order Comment: Speci men Type: BLOOD SPECIMENOrdering Facility: [facility] Address: [address] [facility], [place] [id number] Performed By: #### 2 4323-8, 62821-0, 3023-7, 6-3 ####[facility] LABCLIA [id number] [facility] [address] [address] [place] Cholesterol non HDL [Mass/Vol] 59 mg/dL Normal <130 [facility] Comment on above: Order Comment: Speci men Type: BLOOD SPECIMENOrdering Facility: [facility] Address: [address] [place] [address], [place] [address] Result Comment: <130 mg/dL, Optimal 130-159 mg/dL, Near optimal/above optimal 160-189 mg/dL, Borderline high 190-219 mg/dL, High >219 mg/dL, Very high Secondary prevention optimal non HDL Cholesterol levels are recommended to be <100 mg/dL Performed By: #### 2 4323-8, 35776-9, 3023-7, 3015-3 ####[facility] LABCLIA [id number] [address] [address] [place] Cholesterol.total/Chol esterol in HDL [Mass ratio] 2.28 {ratio} Normal <5.10 [facility] Comment on above: Order Comment: Speci men Type: BLOOD SPECIMENOrdering Facility: [facility] Address: [address] [place] [address], [place] [address] Performed By: #### 2 4323-8, 56345-5, 3023-7, 3015-3 ####[facility] LABCLIA [id number] [facility] [address] [address] [place] FASTING TIME 13 hrs Normal [facility] Comment on above: Order Comment: Speci men Type: BLOOD SPECIMENOrdering Facility: [facility] Address: [address] [place] [address], [place] [address] Performed By: #### 2 4323-8, 84268-5, 3023-7, 3015-3 ####[facility] LABCLIA [id number] [address] [address] [place] Triglyceride [Mass/Vol] 51 mg/dL Normal <150 [facility] Comment on above: Order Comment: Speci men Type: BLOOD SPECIMENOrdering Facility: [facility] Address: [address] [place] [address], [place] [address] Result Comment: <150 mg/dL, Normal 150-199 mg/dL, Borderline high 200-499 mg/dL, High >499 mg/dL, Very high Performed By: #### 2 4323-8, 68641-5, 3024-7, 3016-3 ####[facility] LABCLIA [id number] [address] [address] [place] T4 Free SerPl-mCncon 025 Free T4 [Mass/Vol] 1.4 ng/dL Normal 0.9-1.7 [facility] Comment on above: Order Comment: Speci men Type: BLOOD SPECIMENOrdering Facility: [facility] Address: [address] [place] [address] Performed By: #### 2 4323-8, 54535-1, 3024-7, 3016-3 ####[facility] LABCLIA [id number] [place] [id number] [place] TESTOSTERONE, FREE AND TOTAL , BY EQUILIBRIUM ULTRAFILTRATION MASS SPECTROMETRYon 04-06-2024 Testosterone [Mass/Vol] 290.4 ng/dL Normal 264.0-916.0 [facility] Comment on above: Order Comment: Speci men Type: BLOOD SPECIMENOrdering Facility: [facility] Address: [address] [place] [address], [place] [address] Result Comment: This [facility] LC/MS-MS method is currently certified by the CDC Hormone Standardization Program (HoSt). Adult male reference interval is based on a population of healthy nonobese males (BMI <30) between 19 and 39 years old. Chaitanya, et.al. JCEM 2017,102;6311-8831. PMID: 67406858. Performed By: #### T FTEST ####[facility] LABCLIA [id number] [facility] [place] [address] Testosterone Free [Mass/Vol] 5.49 ng/dL Normal 5.00-21.00 [facility] Comment on above: Order Comment: Speci men Type: BLOOD SPECIMENOrdering Facility: [facility] Address: [address] [place] [address], [place] [address] Performed By: #### T FTEST ####[facility] LABCLIA [id number] [place] [address] Testosterone Free/Testosterone.tota l [Mass fraction] 1.89 % Normal 1.50-4.20 [facility] Comment on above: Order Comment: Speci men Type: BLOOD SPECIMENOrdering Facility: [facility] Address: [address] [place] [address] Performed By: #### T FTEST ####[facility] LABCLIA [id number] [place] [address] TSH SerPl-aCncon 04-06-2024 TSH Qn 2.530 m[IU]/L Normal 0.270-4.200 [facility] Comment on above: Order Comment: Speci men Type: BLOOD SPECIMENOrdering Facility: [facility] Address: [address] [place] [address], [place] [address] Performed By: #### 2 4323-8, 60314-1, 3024-7, 3016-3 ####[facility] LABCLIA [id number] [place] [id number] [place] XR CHEST 2V FRONTAL/LATon [facility] XR Chest PA and Lateralon IMPRESSION: Round opacity overlying the left lower lung. Consider follow-up. Wood Preparation Supervisor: GRABIEL Transcribe Date/Time: Sep 11 2022 2:10P Dictated by : ALEX CONDON MD This examination was interpreted and the report reviewed and electronically signed by: ALEX CONDON MD on Sep 11 2022 2:12PM [facility] DIVISION OF RADIOLOGY * * *Final Report* * * DATE OF EXAM: Sep 11 2022 1:59PM WOX 5291 - XR CHEST 2V FRONTAL/LAT / PROCEDURE REASON: Acute cough * * * * Physician Interpretation * * * * EXAMINATION: CHEST RADIOGRAPH (2 VIEW FRONTAL & LATERAL) CLINICAL HISTORY: Acute cough MQ: XC2_6 EXAM DATE/TIME: 09/11/2022 1:59 PM COMPARISON: Chest x-ray on 05/22/2016 RESULT: Lines, tubes, and devices: None. Lungs and pleura: A 1.5 cm round opacity overlying the left lower lung. The right lungs are clear. No mass lesion seen. No pleural effusions or pneumothorax. Cardiomediastinal silhouette: Normal cardiomediastinal silhouette. Bones and soft tissues: None. DIVISION OF RADIOLOGY Provider, Pinky Bedolla - 09/11/2022 * * *Final Report* * * DATE OF EXAM: Sep 11 2022 1:59PM WOX 5291 - XR CHEST 2V FRONTAL/LAT / PROCEDURE REASON: Acute cough * * * * Physician Interpretation * * * * EXAMINATION: CHEST RADIOGRAPH (2 VIEW FRONTAL & LATERAL) CLINICAL HISTORY: Acute cough MQ: XC2_6 EXAM DATE/TIME: 09/11/2022 1:59 PM COMPARISON: Chest x-ray on 05/22/2016 RESULT: Lines, tubes, and devices: None. Lungs and pleura: A 1.5 cm round opacity overlying the left lower lung. The right lungs are clear. No mass lesion seen. No pleural effusions or pneumothorax. Cardiomediastinal silhouette: Normal cardiomediastinal silhouette. Bones and soft tissues: None. IMPRESSION IMPRESSION: Round opacity overlying the left lower lung. Consider follow-up. Wood Preparation Supervisor: GRABIEL Transcribe Date/Time: Sep 11 2022 2:10P Dictated by : ALEX CONDON MD This examination was interpreted and the report reviewed and electronically signed by: ALEX CONDON MD on Sep 11 2022 2:12PM EST [facility] Radiology Study observation (narrative) [facility] XR Chest PA and LateralOrder ed By: Cc Provider on 09-11-[address] [facility] [address] ABD/PEL W IVCONon 023 [facility] CBC W Auto Differential pane l (Bld)on 01-01-2022 Basophils (Bld) [#/Vol] <0.11 k/uL [facility] Basophils/100 WBC (Bld) 0.8 % [facility] Differential cell count method Nom (Bld) Auto [facility] Eosinophils (Bld) [#/Vol] 0.20 10*3/uL <0.46 k/uL [facility] Eosinophils/100 WBC (Bld) 7.8 % [facility] Erythrocyte distribution width (RBC) [Ratio] 16.0 % High 11.5 - 15.0 % [facility] Hematocrit (Bld) [Volume fraction] 35.4 % Low 39.0 - 51.0 % [facility] Hemoglobin (Bld) [Mass/Vol] 12.8 g/dL Low 13.0 - 17.0 g/dL [facility] Immature granulocytes (Bld) [#/Vol] <0.10 k/uL [facility] Immature granulocytes/100 WBC (Bld) 0.4 % [facility] Lymphocytes (Bld) [#/Vol] 0.76 10*3/uL Low 1.00 - 4.00 k/uL [facility] Lymphocytes/100 WBC (Bld) 29.5 % [facility] MCH (RBC) [Entitic mass] 29.8 pg 26.0 - 34.0 pg [facility] MCHC (RBC) [Mass/Vol] 36.2 g/dL High 30.5 - 36.0 g/dL [facility] MCV (RBC) [Entitic vol] 82.3 fL 80.0 - 100.0 fL [facility] Monocytes (Bld) [#/Vol] 0.18 10*3/uL <0.87 k/uL [facility] Monocytes/100 WBC (Bld) 7.0 % [facility] Neutrophils (Bld) [#/Vol] 1.41 10*3/uL Low 1.45 - 7.50 k/uL [facility] Neutrophils/100 WBC (Bld) 54.5 % [facility] Nucleated RBC (Bld) [#/Vol] <0.01 k/uL [facility] Nucleated RBC/100 WBC (Bld) [Ratio] 0.0 /100 WBC [facility] Platelet mean volume (Bld) [Entitic vol] 9.5 fL 9.0 - 12.7 fL [facility] Platelets (Bld) [#/Vol] 70 10*3/uL Low 150 - 400 k/uL [facility] RBC (Bld) [#/Vol] 4.30 10*6/uL 4.20 - 6.0 0 m/uL [facility] WBC (Bld) [#/Vol] 2.58 10*3/uL Low 3.70 - 11. 00 k/uL [facility] Comprehensive metabolic 2000 panelon 12-25-2021 Albumin [Mass/Vol] 4.5 g/dL 3.9 - 4.9 g/dL [facility] ALP [Catalytic activity/Vol] 89 U/L 38 - 113 U/L [facility] ALT [Catalytic activity/Vol] 26 U/L 10 - 54 U/L [facility] Anion gap [Moles/Vol] 9 mmol/L 9 - 18 mmol/L [facility] AST [Catalytic activity/Vol] 31 U/L 14 - 40 U/L [facility] Bilirubin [Mass/Vol] 1.4 mg/dL High 0.2 - 1 .3 mg/dL [facility] Calcium [Mass/Vol] 9.5 mg/dL 8.5 - 10. 2 mg/dL [facility] Chloride [Moles/Vol] 103 mmol/L 97 - 10 5 mmol/L [facility] CO2 [Moles/Vol] 23 mmol/L 22 - 30 mmol/L [facility] Creatinine [Mass/Vol] 0.83 mg/dL 0.73 - 1.22 mg/dL [facility] Estimated Glomerular Filtration Rate 105 mL/min/1.73m >=60 mL/min/1.73m [facility] Glucose [Mass/Vol] 148 mg/dL High 74 - 99 mg/dL [facility] Potassium [Moles/Vol] 4.4 mmol/L 3.7 - 5.1 mmol/L [facility] Protein [Mass/Vol] 6.7 g/dL 6.3 - 8.0 g/dL [facility] Sodium [Moles/Vol] 135 mmol/L Low 136 - 144 mmol/L [facility] Urea nitrogen [Mass/Vol] 14 mg/dL 9 - 24 mg/dL [facility] HEPATITIS A ANTIBODY, IGGon 12-25-2021 Hepatitis A IgG Negative Negative [facility] HbA1c (Bld)on 12-25-2021 Average glucose Estimated from glycated hemoglobin (Bld) [Mass/Vol] 114 mg/dL [facility] HbA1c (Bld) [Mass fraction] 5.6 % 4.3 - 5.6 % [facility] VITAMIN D 25 HYDROXYon 12-25 25-hydroxyvitamin D3 [Mass/Vol] 23.9 ng/mL Low 31.0 - 80.0 ng/mL [facility] URINALYSIS, REFLEX MICROSCOP ICon 11-27-2021 Bilirubin Ql (U) Negative Negative [facility] Clarity (Unsp spec) Clear Clear [facility] Color (U) Yellow Yellow [facility] Epithelial cells LM.HPF (Urine sed) [#/Area] Few [facility] Glucose Test strip (U) [Mass/Vol] 2+ Abnormal Negative [facility] Hemoglobin Ql (U) 1+ Abnormal Negative [facility] Ketones Ql (U) Negative Negative [facility] Leukocyte esterase Test strip Ql (U) 25 Yue/mL Abnormal Negative [facility] Nitrite Ql (U) Negative Negative [facility] pH (U) 5.5 [pH] 5.0 - 8.0 [facility] Protein (U) [Mass/Vol] Negative Negative [facility] RBC LM.HPF (Urine sed) [#/Area] 3-5 /HPF Abnormal 0-3 /HPF [facility] Specific gravity (U) [Rel density] 1.027 1.005 - 1.030 [facility] Urobilinogen Ql (U) Negative Negative [facility] WBC LM.HPF (Urine sed) [#/Area] 11-25 /HPF Abnormal 0-5 /HPF [facility] LIPID PANEL, NONFASTINGon Cholesterol [Mass/Vol] 102 mg/dL <200 mg/dL [facility] HDL Cholesterol, Nonfasting 46 mg/dL >39 mg/dL [facility] LDL Cholesterol, Nonfasting 45 mg/dL <100 mg/dL [facility] LDL/HDL Ratio, Nonfasting 0.98 mg/dL <2.54 mg/dL [facility] Non HDL Cholesterol, Nonfasting 56 mg/dL <130 mg/dL [facility] Total Chol/HDL Ratio, Nonfasting 2.22 mg/dL <5.10 mg/dL [facility] Triglycerides, Nonfasting 54 mg/dL <150 mg/dL [facility] VLDL Cholesterol, Nonfasting 11 mg/dL <30 mg/dL [facility] URINE CULTUREon 08-24-2021 Bacteria identified Cx Nom (U) <10,000 CFU/ml Normal urogenital hans [facility] URINALYSIS, REFLEX MICROSCOP ICon 08-23-2021 Bilirubin Ql (U) Negative Negative [facility] Clarity (Unsp spec) Clear Clear [facility] Color (U) Yellow Yellow [facility] Epithelial cells LM.HPF (Urine sed) [#/Area] Few [facility] Glucose Test strip (U) [Mass/Vol] Negative Negative [facility] Hemoglobin Ql (U) 2+ Abnormal Negative [facility] Ketones Ql (U) Negative Negative [facility] Leukocyte esterase Test strip Ql (U) 75 Yue/mL Abnormal Negative [facility] Nitrite Ql (U) Negative Negative [facility] pH (U) 5.5 [pH] 5.0 - 8.0 [facility] Protein (U) [Mass/Vol] Trace Abnormal Negative [facility] RBC LM.HPF (Urine sed) [#/Area] 6-10 /HPF Abnormal 0-3 /HPF [facility] Specific gravity (U) [Rel density] 1.026 1.005 - 1.030 [facility] Urobilinogen Ql (U) Negative Negative [facility] WBC LM.HPF (Urine sed) [#/Area] 11-25 /HPF Abnormal 0-5 /HPF [facility] XR VOIDING CYSTO URETHROGRAM on 08-06-2021 [facility] Comprehensive metabolic 2000 panelon 07-02-2021 Albumin [Mass/Vol] 4.2 g/dL 3.9 - 4.9 g/dL [facility] ALP [Catalytic activity/Vol] 98 U/L 38 - 113 U/L [facility] ALT [Catalytic activity/Vol] 40 U/L 10 - 54 U/L [facility] Anion gap [Moles/Vol] 11 mmol/L 9 - 18 mmol/L [facility] AST [Catalytic activity/Vol] 39 U/L 14 - 40 U/L [facility] Bilirubin [Mass/Vol] 1.9 mg/dL High 0.2 - 1 .3 mg/dL [facility] Calcium [Mass/Vol] 9.4 mg/dL 8.5 - 10. 2 mg/dL [facility] Chloride [Moles/Vol] 102 mmol/L 97 - 10 5 mmol/L [facility] CO2 [Moles/Vol] 23 mmol/L 22 - 30 mmol/L [facility] Creatinine [Mass/Vol] 0.72 mg/dL Low 0.73 - 1.22 mg/dL [facility] Estimated Glomerular Filtration Rate 110 mL/min/1.73m >=60 mL/min/1.73m [facility] Glucose [Mass/Vol] 147 mg/dL High 74 - 99 mg/dL [facility] Potassium [Moles/Vol] 4.1 mmol/L 3.7 - 5.1 mmol/L [facility] Protein [Mass/Vol] 6.6 g/dL 6.3 - 8.0 g/dL [facility] Sodium [Moles/Vol] 136 mmol/L 136 - 144 mmol/L [facility] Urea nitrogen [Mass/Vol] 17 mg/dL 9 - 24 mg/dL [facility] CBC W Auto Differential pane l (Bld)on 06-04-2021 Abs Immature Gran <0.03 <0.10 k/uL [facility] Basophils (Bld) [#/Vol] 10*3/uL <0.11 k/uL [facility] Basophils/100 WBC (Bld) 0.6 % [facility] Differential cell count method Nom (Bld) Auto [facility] Eosinophils (Bld) [#/Vol] 0.18 10*3/uL <0.46 k/uL [facility] Eosinophils/100 WBC (Bld) 5.6 % [facility] Erythrocyte distribution width (RBC) [Ratio] 15.8 % High 11.5 - 15.0 % [facility] Hematocrit (Bld) [Volume fraction] 39.4 % 39.0 - 51.0 % [facility] Hemoglobin (Bld) [Mass/Vol] 14.6 g/dL 13.0 - 17.0 g/dL [facility] Immature Gran % 0.0 % [facility] Lymphocytes (Bld) [#/Vol] 0.92 10*3/uL Low 1.00 - 4.00 k/uL [facility] Lymphocytes/100 WBC (Bld) 28.5 % [facility] MCH (RBC) [Entitic mass] 32.3 pg 26.0 - 34.0 pg [facility] MCHC (RBC) [Mass/Vol] 37.1 g/dL High 30.5 - 36.0 g/dL [facility] MCV (RBC) [Entitic vol] 87.2 fL 80.0 - 100.0 fL [facility] Monocytes (Bld) [#/Vol] 0.28 10*3/uL <0.87 k/uL [facility] Monocytes/100 WBC (Bld) 8.7 % [facility] Neutrophils (Bld) [#/Vol] 1.83 10*3/uL 1.45 - 7.50 k/uL [facility] Neutrophils/100 WBC (Bld) 56.6 % [facility] Nucleated RBC (Bld) [#/Vol] 10*3/uL <0.01 k/uL [facility] Nucleated RBC/100 WBC (Bld) [Ratio] 0.0 /100 WBC [facility] Platelet mean volume (Bld) [Entitic vol] 8.9 fL Low 9.0 - 12.7 fL [facility] Platelets (Bld) [#/Vol] 65 10*3/uL Low 150 - 400 k/uL [facility] RBC (Bld) [#/Vol] 4.52 10*6/uL 4.20 - 6.0 0 m/uL [facility] WBC (Bld) [#/Vol] 3.23 10*3/uL Low 3.70 - 11. 00 k/uL [facility] ANES POSTPROC EVALon 022 ANES POSTPROC EVAL HNO ID: [id number] Author: Evens Kaye MD Service: Anesthesiology Author Type: Anesthesiologist Type: Anesthesia Postprocedure Evaluation Filed: 03/13/2021 10:14 AM Note Text: POST ANESTHESIA EVALUATION NOTE : 1970 Procedure Summary Date: 03/13/21 Room / Location: [facility]oscopy Anesthesia Start: 0731 Anesthesia Stop: 756 Procedures: COLONOSCOPY DIAGNOSTIC EGD DIAGNOSTIC Diagnosis: Screening for colon cancer Portal hypertension with esophageal varices (HCC) (Screening for colorectal malignant neoplasm) (Abdominal pain in the left upper quadrant) (Portal hypertension rule out esophageal varices) Scheduled Providers: Tashi Woodruff MD; Libertad Almeida APRN.REHABILITATION PROGRAM MANAGER Responsible Provider: Evens Kaye MD Anesthesia Type: MAC ASA Status: 3 Anesthesia Type: MAC Last Vitals Vitals Value Taken Time BP 121/73 03/13/21 0830 Temp 37.1 ?C (98.8 ?F) 03/13/21 0830 Pulse 76 03/13/21 0830 Resp 20 03/13/21 0830 SpO2 97 % 03/13/21 0830 Post Anesthesia Patient Status Patient Evaluation: bedside. Anticipated Disposition: phase 2 then home. Neurological Status: aware and responsive. Pulmonary Status: breathing comfortably on room air Airway Control: returned to baseline unsupported. Cardiovascular Status: stable. Pain Management: clinically adequate Postoperative Hydration: acceptable. Intraoperative Events: no significant anesthesia events Post Operative Nausea/Vomiting Status: no significant post operative nausea or vomiting Anesthetic Observations: Recommendation: continue current plan of care. Anesthesia Observations No Documentation SIGNATURE: Evens Kaye MD PATIENT NAME: Hal Blancas DATE: March 13, 2021 TIME: 10:14 AM CSN: [id number] Normal [facility] ANES PRE-OPon 03-13-2021 ANES PRE-OP HNO ID: [id number] Author: Evens Kaye MD Service: Anesthesiology Author Type: Anesthesiologist Type: Anesthesia Preprocedure Evaluation Filed: 03/13/2021 6:57 AM Note Text: ANESTHESIOLOGY DAY OF SURGERY NOTE : 1970 Procedure Information Date/Time: 03/13/21 0805 Scheduled providers: Tashi Woodruff MD; Libertad Almeida APRN.REHABILITATION PROGRAM MANAGER Procedures: COLONOSCOPY DIAGNOSTIC EGD DIAGNOSTIC Location: [facility] Endoscopy Estimated body mass index is 32.35 kg/m? as calculated from the following: Height as of this encounter: 188 cm (6' 2). Weight as of this encounter: 114.3 kg (251 lb 15.8 oz). Most recent hematocrit and potassium results: Hematocrit 41.4 03/05/2021 Potassium 4.6 02/12/2021 Relevant Problems ANESTHESIA (+) MARC (obstructive sleep apnea) ENDO (+) Diabetes mellitus type II (HCC) (+) Hypothyroidism -RENAL (+) Hepatic steatosis NEURO-PSYCH (+) History of medication noncompliance (+) History of pulmonary embolism (+) Personal history of DVT (deep vein thrombosis) (+) Personal history of PE (pulmonary embolism) PULMONARY (+) MARC (obstructive sleep apnea) Other (+) Splenomegaly I - PHYSICAL EVALUATION AIRWAY Patient intubated: No. Tracheostomy tube not present Mallampati: II. TM distance: >3 FB. Neck ROM: full ROM without neurological symptoms. Mouth opening: adequate. Short neck: no. Thick neck: no DENTAL Dental findings: missing tooth/teeth, poor dentition, chipped and broken tooth. Additional exam findings: no II - ANESTHESIA PLAN ASA Score: 3 Anesthetic Plan: MAC The patient is not a current smoker. NPO Status: adequate Monitoring plan: standard ASA. Postoperative analgesic plan: parenteral or oral opioids. Anesthetic Risks, Benefits, Alternatives, Personnel Discussed. Consent obtained from: patient.Patient / Surrogate agrees to blood products: blood products not planned DNR status not reviewed with patient and/or family prior to surgery. Significant changes in the patient condition since the History and Physical, not otherwise documented in primary service progress note: no. Potential Anesthesia issues that may suggest increased risk of complications or contraindication to planned procedure: none. Vitals Value Taken Time BP 127/69 03/13/21635 Pulse Resp 18 03/13/21635 Temp 36 ?C (96.8 ?F) 03/13/21635 SpO2 97 % 03/13/21635 Outpatient Medications as of 03/13/2021 Medication Sig - doxepin capsule 10 mg Take 1 capsule by mouth daily at bedtime. - blood sugar diagnostic (BLOOD GLUCOSE TEST) test strip Test blood sugar(s) 1 times daily. Dx: Type 2 DM - Controlled E11.9 Insulin: No - Lancets lancets Test blood sugar(s) 1 times daily. Dx: Type 2 DM - Controlled E11.9 Insulin: No - lisinopril (ZESTRIL, PRINIVIL) 5 mg tablet Take 1 tablet by mouth once daily. - atorvastatin (LIPITOR) 10 mg tablet Take 1 tablet by mouth daily at bedtime. For cholesterol. - enoxaparin (LOVENOX) 120 mg/0.8 mL injection Inject 0.7 mL subcutaneously every 12 hours. - metFORMIN (GLUCOPHAGE) 500 mg tablet Take 1 tablet by mouth twice daily with meals. . - levothyroxine 100 mcg cap Take 100 mcg by mouth daily before breakfast. - CPAP Patient would like to change DME closer to home. Needs mask and supplies. Current PAP device only 3 months old. Need download from device. Lifetime supplies. - Irrigation Set irst 1 kit to flush SPT as needed - Syringe Disposable, Irrigation (IRRIGATION SYRINGE) syrg Use to flush SPT with Irrigation fluid - sodium chloride 0.9 % IRRIGATION Use irrigation solution to flush SPT - cholecalciferol, Vitamin D3, (VITAMIN D3) 1,250 mcg (50,000 unit) cap capsule Take 1 capsule by mouth one time a week. - Syringe with Needle, Disp, 3 mL 22 gauge x 1 syrg Use as directed to inject testosterone once a month - testosterone cypionate (DEPO-TESTOSTERONE) 200 mg/mL injection Inject 0.75 mL intramuscularly as directed for 14 days. - COMPOUNDED PRESCRIPTION Night bag for Baum catheter - Urinary Bag (URINARY LEG BAG) Misc Misc Use as needed - Catheter (BARD COUDE TIP CATHETER) 16 Fr Misc Misc to be used as needed - ipratropium-albuterol (DUONEB) 0.5 mg-3 mg(2.5 mg base)/3 mL nebu Inhale 3 mL as instructed every 4 hours as needed (wheezing). Use over 5-15minutes per nebulizer. (Patient not taking: Reported on 03/04/2021 ) - ALBUTEROL 90 MCG/ACTUATION AEROSOL INHALER Inhale two(2) puffs four(4) times a day for wheezing and shortness of breath. (Patient not taking: Inhale two(2) puffs four(4) times a dayANDnbsp;ANDnbsp;for wheezing and shortness of breath.) Facility-Administered Medications as of 03/13/2021 Medication Dose Route Frequency - lactated ringers iv infusion 30 mL/hr INTRAVENOUS CONTINUOUS I have interviewed and examined the patient. I have reviewed the medical record and/or the pre-anesthesia evaluation, pertinent labs, and test results. This contains up (more content not included)... Normal [facility] HISTORY PHYSICALon HISTORY PHYSICAL HNO ID: [id number] Author: Tashi Woodruff MD Service: General Surgery Author Type: Physician Type: HANDP Filed: 03/13/2021 7:25 AM Note Text: HISTORY AND PHYSICAL ? Hal Blancas 1970 ? REFERRING PHYSICIAN: Dexter Wong DO ? CHIEF COMPLAINT: Consult ? HPI: The patient is a 50 year old male referred for endoscopy. Hal notes the following GI complaints: Hal notes abdominal pain. He has been having pain in his left upper quadrant of his abdomen was presumptively from his splenomegaly.. . Hal denies diarrhea. Hal denies constipation. Hal denies a change in bowel habits. Hal denies melena. Hal denies bright red blood per rectum. Hal denies hemorrhoids. ? The patient notes no history of upper GI complaints. ? Hal has not undergone prior endoscopy. ? The patient is being seen by me today at the request of Dr. Wong for my opinion and advice regarding Encounter for screening colonoscopy (primary encounter diagnosis) Portal hypertension with esophageal varices (hcc) Left upper quadrant abdominal pain. ? ? PAST MEDICAL HISTORY PAST MEDICAL HISTORY Diagnosis Date - Abdominal pain, generalized ? - Adjustment disorder with depressed mood ? - Bronchitis, mucopurulent recurrent (HCC) ? - Calcified granuloma of lung (HCC) ? ? left lower lung on CT abd/pelvis 04/10/16 - Cholecystitis ? - Chronic lower back pain ? - Embolism and thrombosis of unspecified site 01/2004 ? left, positive lupus anticoagulant- using Lovenox, Previously seeing Dr. Wong - Hematuria ? ? work up in progress as of 09/24/04 - Hepatomegaly ? - Hypogonadism in male ? ? 04/03 orchiectomy for testicular pain - Left-sided muscle weakness ? ? intermittent, has had extensive work up - Obesity ? - MARC (obstructive sleep apnea) ? ? Seeing Dr. Yin, using CPAP - Osteopenia of neck of left femur 06/18/2020 - PMH - PAST MEDICAL HISTORY OF ? ? scrotal swelling - Pulmonary embolism (HCC) ? - Retention of urine, unspecified ? - Snoring ? - Splenomegaly ? - Thrombocytopenia (HCC) ? - Urethral stricture 2020 - Vitamin D deficiency ? ? ? PAST SURGICAL HISTORY PAST SURGICAL HISTORY Procedure Laterality Date - EXPLORATORY OF ABDOMEN ? 03/2005 ? Laparotomy, exp; incidental appendectomy - IVC FILTER PERCUTANEOUS ? 06/2004 - IVC FILTER SURGICAL ? ? - LAPAROSCOPIC CHOLEYCYSTECTOMY ? 06/08/2014 - PAST SURGICAL HISTORY OF ? ? ? finger rt hand table saw evette - PAST SURGICAL HISTORY OF ? 11/2005 ? Bladder pacemaker - PAST SURGICAL HISTORY OF ? ? ? bilateral achilles repair - PAST SURGICAL HISTORY OF ? 2006, 2007 ? bilateral orchiectomy, secondary to pain - PAST SURGICAL HISTORY OF ? 2020 ? placement of suprapubic catheter ? ? ? CURRENT MEDICATIONS Current Outpatient Medications Medication Sig - doxepin capsule 10 mg Take 1 capsule by mouth daily at bedtime. - enoxaparin (LOVENOX) 120 mg/0.8 mL injection Inject 0.7 mL subcutaneously every 12 hours. - metFORMIN (GLUCOPHAGE) 500 mg tablet Take 1 tablet by mouth twice daily with meals. . - levothyroxine 100 mcg cap Take 100 mcg by mouth daily before breakfast. - CPAP Patient would like to change DME closer to home. Needs mask and supplies. Current PAP device only 3 months old. Need download from device. Lifetime supplies. - Irrigation Set irst 1 kit to flush SPT as needed - Syringe Disposable, Irrigation (IRRIGATION SYRINGE) syrg Use to flush SPT with Irrigation fluid - sodium chloride 0.9 % IRRIGATION Use irrigation solution to flush SPT - ipratropium-albuterol (DUONEB) 0.5 mg-3 mg(2.5 mg base)/3 mL nebu Inhale 3 mL as instructed every 4 hours as needed (wheezing). Use over 5-15minutes per nebulizer. - mupirocin (BACTROBAN) 2 % ointment Apply 1 application to affected area twice daily. Location: right groin - cholecalciferol, Vitamin D3, (VITAMIN D3) 1,250 mcg (50,000 unit) cap capsule Take 1 capsule by mouth one time a week. - Syringe with Needle, Disp, 3 mL 22 gauge x 1 syrg Use as directed to inject testosterone once a month - testosterone cypionate (DEPO-TESTOSTERONE) 200 mg/mL injection Inject 0.75 mL intramuscularly as directed for 14 days. - COMPOUNDED PRESCRIPTION Night bag for Baum catheter - Urinary Bag (URINARY LEG BAG) Misc Misc Use as needed - Catheter (BARD COUDE TIP CATHETER) 16 Fr Misc Misc to be used as needed - ALBUTEROL 90 MCG/ACTUATION AEROSOL INHALER Inhale two(2) puffs four(4) times a day for wheezing and shortness of breath. - oxybutynin ER (DITROPAN XL) 10 mg 24 hr tablet Take 1 tablet by mouth as needed (Once daily as needed for bladder spasms). - phenazopyridine (PYRIDIUM, GERIDIUM) 200 mg tablet Take 1 tablet by mouth three times daily as needed for Pain. (Patient not taking: Reported on 07/03/2020 ) - phenazopyridine (PYRIDIUM, GERIDIUM) 200 mg tablet Take 1 tablet by mouth three times daily as needed. ? No current facilit (more content not included)... Normal [facility] SURGICAL PATHOLOGYon 022 SURGICAL PATHOLOGY Specimen originated from [facility] Specimen #: [id number] Submitting Physician: Tashi Woodruff M.D. FINAL DIAGNOSIS A. Antrum, biopsy - Oxyntic mucosa with no significant diagnostic alteration. - No morphologic evidence of Helicobacter pylori organisms. B. Descending colon polyp, biopsy - Tubular adenoma. Virgil Espinoza M.D., Ph.D. (Electronic Signature) SPECIMEN SUBMITTED A: ANTRUM, BIOPSY B: DESCENDING COLON POLYP CLINICAL DATA ABDOMINAL PAIN, R/O H.PYLORI GROSS DESCRIPTION A. Received in formalin is one piece of leblanc, soft tissue measuring 0.4 x 0.4 x 0.2 cm. Totally submitted in one cassette. B. Received in formalin is a segment of leblanc polypoid tissue measuring 0.6 x 0.5 x 0.5 cm. No stalk is noted. The line of resection is noted. The specimen is bisected and totally submitted in one cassette. Gross examination performed at [facility], [address] [place] [address] 03/13/2021 8:25:24 PM Date of Report: 03/14/2021 Date of Procedure: 03/13/2021 Date of Receipt: 03/13/2021 Submitted by: Tashi Woodruff M.D. Location: [facility] Diagnostic interpretation performed at [place] [address]. CLIA Number: [id number] [facility] PROGRESSon 01-10-2020 PROGRESS HNO ID: [id number] Author: Renny Yin Jr. Service: ? Author Type: Physician Type: Progress Notes Filed: 01/10/2020 11:01 AM Note Text: NEW PATIENT (CONSULT) HISTORY AND PHYSICAL EXAM (Virtual Visit with Video) PRIMARY CARE PHYSICIAN: Julián Urias MD REASON FOR CONSULT: MARC REFERRING PHYSICIAN: Self CHIEF COMPLAINT: MARC With the current coronavirus outbreak, we want to minimize the risk of exposing patients to this illness. I have reviewed this patient's chart and, per patient's request for an opportunity to be seen without having to present to the office, feel appropriate that this appointment be made a virtual visit. For this virtual visit, the patient has been identified by name and (MRN and photo identification as well if available). Those taking part in visit: patient and physician via [facility] zoom Consent for this visit received from patient. HISTORY OF PRESENT ILLNESS: Hal Blancas is a 49 year old male, with history of MARC. States he has to get a new machine, and requires a doctors appointment to get one. Saw me years ago at practice outside the [facility], but those records not available for review. States recently received a new machine that he describes as a dreamstation. States when he first got it, felt like the pressure was really high. Then recently turned it down and steps it up with a ramp. Currently on pressure of 15 cmH2O. This last machine was ordered by [employer] States current PAP mask with new device - states all it does is bubble. Describes as an over the nose FFM. Failed under the nose FFM. Currently using DME = [facility]. Denies snoring or witnessed apneas. Does notice that when he wakes the only way he can go back to sleep is to reset the RAMP. Current RAMP is at approximately 5-10 minutes. Patient brought machine to computer monitor. Using 8 hours per night per machine. Detailed download not available. [place] Sleepiness Scale: Sitting and readin Watching TV: 1 Sitting, inactive in a public place (e.g. a theatre or a meeting): 1 As a passenger in a car for an hour without a break: 1 Lying down to rest in the afternoon when circumstances permit: 2 Sitting and talking to someone: 1 Sitting quietly after a lunch without alcohol: 1 In a car, while stopped for a few minutes in the traffic: 1 Total: 10 Patient states he is not at all tired during the day. Patient states currently using F20 FFM medium. States it works great. REVIEW OF SYSTEMS GENERAL:No weight loss, malaise or fevers. HEENT:Negative for frequent or significant headaches, No changes in hearing or vision, no nose bleeds or other nasal problems NECK:Negative for lumps, goiter, pain and significant neck swelling RESPIRATORY: Negative for cough, wheezing or shortness of breath. CARDIOVASCULAR: Negative for chest pain, leg swelling or palpitations. GASTROINTESTINAL: Negative for abdominal discomfort, blood in stools or black stools or change in bowel habits GENITOURINARY: No history of dysuria, frequency or incontinence MUSCULOSKELETAL: Negative for joint pain or swelling, back pain or muscle pain. NEUROLOGIC:Negative for focal numbness or weakness, headaches and dizziness or syncope, vision changes, speech/language changes, changes in gait or falls -- besides those complaints as above in HPI. LAB/IMAGING: Reviewed and include: WBC (k/uL) Date Value 12/27/2019 2.29 (L) RBC (m/uL) Date Value 12/27/2019 4.55 Hemoglobin (g/dL) Date Value 12/27/2019 14.3 Hematocrit (%) Date Value 12/27/2019 39.8 MCV (fL) Date Value 12/27/2019 87.5 MCH (pG) Date Value 12/27/2019 31.4 MCHC (g/dL) Date Value 12/27/2019 35.9 RDW-CV (%) Date Value 12/27/2019 14.6 Platelet Count (k/uL) Date Value 12/27/2019 67 (L) MPV (fL) Date Value 12/27/2019 9.1 Glucose (mg/dL) Date Value 11/16/2019 172 (H) BUN (mg/dL) Date Value 11/16/2019 11 Creatinine (mg/dL) Date Value 11/16/2019 0.78 Sodium (mmol/L) Date Value 11/16/2019 136 Potassium (mmol/L) Date Value 11/16/2019 4.1 Chloride (mmol/L) Date Value 11/16/2019 104 CO2 (mmol/L) Date Value 11/16/2019 24 Protein, Total (g/dL) Date Value 11/16/2019 6.4 Albumin (g/dL) Date Value 11/16/2019 4.0 Calcium (mg/dL) Date Value 11/16/2019 9.1 Alkaline Phosphatase (U/L) Date Value 11/16/2019 126 (H) Bilirubin, Total (mg/dL) Date Value 11/16/2019 1.3 AST (U/L) Date Value 11/16/2019 36 ALT (U/L) Date Value 11/16/2019 31 Hep C Antibody IA (no units) Date Value 04/11/2016 Negative MEDICATIONS: enoxaparin (LOVENOX) 120 mg/0.8 mL injection Inject 0.7 mL subcutaneously every 12 hours. Irrigation Set irst 1 kit to flush SPT as needed Syringe Disposable, Irrigation (IRRIGATION SYRINGE) syrg Use to flush SPT with Irrigation fluid sodium chloride 0.9 % IRRIGATION Use irrigation solution to flush SPT ipratropium-albuterol (DUONEB) 0.5 mg-3 mg(2.5 mg base)/3 mL nebu Inhale 3 mL as instructed every 4 hours as needed (wheezing). Use over 5-15minutes per nebulizer. doxepin capsule 10 mg Take 1 capsule by mouth daily at bedtime. mupirocin (BACTROBAN) 2 % ointment Apply 1 application to affected area twice daily. Location: right groin oxybutynin ER (DITROPAN XL) 10 mg 24 hr tablet Take 1 tablet by mouth as needed (Once daily as needed for bladder spasms). phenazopyridine (PYRIDIUM, GERIDIUM) 200 mg tablet Take 1 tablet by mouth three times daily as needed for Pain. docusate sodium (COLACE) 100 mg capsule Take 1 capsule by mouth twice daily. cholecalciferol, Vitamin D3, (VITAMIN D3) 1,250 mcg (50,000 unit) cap capsule Take 1 capsule by mouth one time a week. Syringe with Needle, Disp, 3 mL 22 gauge x 1 syrg Use as directed to inject testosterone once a month testosterone cypionate (DEPO-TESTOSTERONE) 200 mg/mL injection Inject 0.75 mL intramuscularly as directed for 14 days. phenazopyridine (PYRIDIUM, GERIDIUM) 200 mg tablet Take 1 tablet by mouth three times daily as needed. Cholecalciferol, Vitamin D3, 2,000 unit cap Take 1 capsule by mouth once daily. COMPOUNDED PRESCRIPTION Night bag for Baum catheter Urinary Bag (URINARY LEG BAG) Misc Misc Use as needed Catheter (BARD COUDE TIP CATHETER) 16 Fr Misc Misc to be used as needed ALBUTEROL 90 MCG/ACTUATION AEROSOL INHALER Inhale two(2) puffs four(4) times a day for wheezing and shortness of breath. HISTORIES PAST MEDICAL HISTORY Diagnosis Date - Abdominal pain, generalized - Adjustment disorder with depressed mood - Bronchitis, mucopurulent recurrent (HCC) - Calcified granuloma of lung (HCC) left lower lung on CT abd/pelvis 04/10/16 - Cholecystitis - Chronic lower back pain - Embolism and thrombosis of unspecified site 01/2004 left, positive lupus anticoagulant- using Lovenox, Previously seeing Dr. Wong - Hematuria work up in progress as of 09/24/04 - Hepatomegaly - Hypogonadism in male / orchiectomy for testicular pain - Left-sided muscle weakness intermittent, has had extensive work up - Obesity - MARC (obstructive sleep apnea) Seeing Dr. Yin, using CPAP - PMH - PAST MEDICAL HISTORY OF scrotal swelling - Pulmonary embolism (HCC) - Retention of urine, unspecified - Snoring - Splenomegaly - Thrombocytopenia (HCC) - Vitamin D deficiency FAMILY HISTORY Problem Relation Age of Onset - Diabetes Father unsure of how old - Coronary Artery Disease Father - Colon Cancer Mother - other (Trisomy 22) Son - other (Trisomy 22) Daughter - Diabetes Sister - other (sleep apnea) Sister - Diabetes Sister - other (sleep apnea) Sister SOCIAL HISTORY Social History Tobacco Use - Smoking status: Former Smoker Packs/day: 2.00 Years: 2.00 Pack years: 4.00 Types: Cigarettes Quit date: 07/04/1987 Years since quittin.5 - Smokeless tobacco: Never Used Substance Use Topics - Alcohol use: Yes Comment: occasional - Drug use: No PHYSICAL EXAMINATION There were no vitals taken for this visit. GENERAL EXAM: General appearance: NAD, pleasant. HEENT: NC/AT, nasal congestion absent, no oral lesions, membranes moist. Freidman III. NECK: No masses, supple. Lungs: No audible cough, wheeze, or sob. NEUROLOGICAL EXAM: General: Awake, alert, oriented x3 (person,place,time), speech fluent, no dysarthria; comprehension, naming, repetition intact CN: EOMI and without nystagmus, VFF, facial sensation and strength are normal and symmetric, hearing is intact bilaterally, palate and tongue movements are intact and symmetric. SCM and trapezius strength normal and symmetric. Motor: SAMUELS equal and symmetric. Coordination: FNF, EVELYN intact. No tremors. Sensation and DTRs: Cannot obtain via video. Gait: Stable with normal stride. Assessment and Plan: ASSESSMENT/PLAN: 1. Obstructive sleep apnea (adult) (pediatric) - ICD9: 327.23, ICD10: G47.33 (primary diagnosis) 2. Class 1 obesity with body mass index (BMI) of 32.0 to 32.9 in adult, unspecified obesity type, unspecified whether serious comorbidity present - ICD9: 278.00, V85.32, ICD10: E66.9, Z68.32 Patient with history of MARC. As noted, I previously saw patient years ago (>4), but office records not available for review, nor are more recent records. I did receive most recent PAP titration of 10/22/15 from [facility] recommending CPAP 15 cmH2O with EPR of 3 at that time. Patient now with new device but needing supplies. Subjectively doing well on PAP. However, I have requested PAP downloads to determine if objectively also doing well or if change in PAP settings are necessary. Patient is understanding of this and as soon as downloads available and reviewed I will contact patient with results. In meantime, Rx will be sent for new PAP supplies. He would also like to have a DME closer to home, and did inquire about [facility]. Will see if they would accept his insurance. Discussed with patient: the physiology of OSAS, medical conditions associated with OSAS (DM, HTN, CAD, Depression, Stroke, Headache...) and treatment options (UPPP, Dental appliances, CPAP...). Advised patient to avoid activities that could harm self or others when tired/sleepy, including driving and/or operating heavy machinery. Encouraged weight loss, and continued compliance with other medications. Renny Yin MD Follow up 6 months or sooner prn. Normal [facility] CNPCarina 08-05-2019 CNPN Telephone (UROLAG) -- HAL BLANCAS ([id number]) 1970 M Date Time Provider Department 08/05/19 RAINER SOLARES During your visit today, we recorded the following information about you: Karen Espinoza MA 08/05/2019 12:15 PM Signed Patient calling in complaining for allergic reaction to tape around surgery site. Patient says he has redness, soreness, red spots. Karen Espinoza MA Allergies As of Date: 08/05/2019 Noted Allergy Reaction PIPERACILLIN 08/25/2007 2 - Rash VANCOCIN (VANCOMYCIN) 08/25/2007 2 - Rash Date Reviewed: 07/28/2019 Reviewed by: Khloe (Rn) ALPA Bradshaw - Fully Assessed Reason for Visit: Hives [56] Prescriptions as of 08/05/2019 Sig: FLUCONAZOLE 200 MG TABLET Take 2 tablets by mouth once * SULFAMETHOXAZOLE 800 MG-TRIME* Take 2 tablets by mouth twice* PHENAZOPYRIDINE 200 MG TABLET Take 1 tablet by mouth three * ENOXAPARIN SODIUM 120 MG/0.8 * Inject 0.8 mL subcutaneously * ENOXAPARIN 40 MG/0.4 ML SUBCU* Inject 0.4 mL subcutaneously * DOCUSATE SODIUM 100 MG CAPSULE Take 1 capsule by mouth twice* X OXYBUTYNIN CHLORIDE ER 10 MG * Take 1 tablet by mouth once d* CHOLECALCIFEROL (VITAMIN D3) * Take 1 capsule by mouth one t* SYRINGE WITH NEEDLE 3 ML 22 G* Use as directed to inject janet* DOXEPIN 10 MG CAPSULE Take 1 capsule by mouth daily* PHENAZOPYRIDINE 200 MG TABLET Take 1 tablet by mouth three * CHOLECALCIFEROL (VITAMIN D3) * Take 1 capsule by mouth once * X MUPIROCIN 2 % TOPICAL OINTMENT Apply 1 application to affect* IPRATROPIUM 0.5 MG-ALBUTEROL * Inhale 3 mL as instructed rachel* COMPOUNDED PRESCRIPTION Night bag for Baum catheter URINARY BAG Use as needed CATHETER 16 FR to be used as needed ALBUTEROL 90 MCG/ACTUATION AE* Inhale two(2) puffs four(4) t* Problem List As Of Date 08/05/2019 Noted Resolved Achilles Bursitis or Tendinitis [M76.60] 05/07/2004 04/26/2009 Phlebitis and Thrombophlebitis of Unspecified S*09/25/2004 04/26/2009 DEPRESSION [F33.9] 11/21/2004 More... Chronic interstitial cystitis [N30.10] 11/21/2004 Obesity, unspecified [E66.9] 11/21/2004 More... 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 Other Specified Disorder of Male Genital Organs*10/23/2006 04/26/2009 History of pulmonary embolism [Z86.711] 01/24/2008 More... More... 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 Left hemiparesis [G81.94] 04/26/2009 More... Scrotal pain [N50.82] 04/26/2009 More... Muscle weakness (generalized) [M62.81] 01/10/2010 Unspecified disorder of skin and subcutaneous t*04/20/2010 Cholelithiasis [K80.20] 05/09/2010 04/10/2016 More... 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 Hematuria [R31.9] 05/19/2011 Low back pain [M54.5] 05/19/2011 Difficulty voiding [R39.198] 05/19/2011 Urinary retention [R33.9] 05/19/2011 More... Painful urination [R30.9] 05/19/2011 Dysuria [R30.0] 05/19/2011 Vitamin D deficiency [E55.9] Cholecystitis with cholelithiasis [K80.10] 06/08/2014 04/10/2016 Obesity [E66.9] Class 2 obesity with serious comorbidity and fabi*04/30/2017 Prediabetes [R73.03] 07/30/2018 More... Obesity (BMI 30-39.9) [E66.9] 07/30/2018 More... 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 Personal history of DVT (deep vein thrombosis) *03/11/2019 Personal history of PE (pulmonary embolism) [Z8*03/11/2019 Thrombocytopenia (HCC) [D69.6] 03/11/2019 More... Splenomegaly [R16.1] 03/11/2019 More... Hepatic steatosis [K76.0] 03/11/2019 More... Preoperative examination [Z01.818] 03/11/2019 History of medication noncompliance [Z91.14] 03/11/2019 Encounter Status:Closed by KAREN ESPINOZA MA on 08/16/19 [facility] (UROLAE[facility] -- HAL BLANCAS ([id number]) 1970 M Date Time Provider Department 03/10/19 RAINER RESENDIZ) UROCHARLEE During your visit today, we recorded the following information about you: Justyna Hernandez Cma 03/10/2019 10:18 AM Signed Patient called would like to know if there is any other option for monthly cath changes as he is paying 35 dollars per visit to have done in office with nurse. He states he has done at home on his for years. Please advise, Thank you. Justyna Lan DO, MBA 03/10/2019 3:54 PM Signed Patient can do it at home. Defer to nurses. Celina Dang RN, RN 03/11/2019 8:15 AM Addendum I have never met this patient before, I am unsure if I have any say in this issue the patient is having 2/2 costs, He is tentatively scheduled for SP tube placement on 03/[address] Solares. Ultimately his SP tube will need to be changed in the office qmonthly or possibly by HH nurse at home? So his options are going to be baum changes in office or home (with nurse?) When is his next catheter change due? Lat documented change is 01/13? This patient would need additional teaching on how to exchange his own baum catheter at home, and typically this would need a trained person to assist him, he has done CIC as I can see it in his chart but a baum catheter is going to be different. Please advise. ALPA Cornell RN, RN 03/21/2019 10:09 AM Signed Left for patient to return call to office, regarding catheter changes and options. What would the patient like to do? We can look into home health nurses and visits at home if his insurance will cover it. Does patient want to change his own catheter at home? Would need a lot of training. Celina Dang RN Allergies As of Date: 03/10/2019 Noted Allergy Reaction PIPERACILLIN 08/25/2007 2 - Rash VANCOCIN (VANCOMYCIN) 08/25/2007 2 - Rash Date Reviewed: 03/09/2019 Reviewed by: Lisandra Ramos LPN - Fully Assessed Reason for Visit: Baum Catheter Change [825] Prescriptions as of 03/10/2019 Sig: PHENAZOPYRIDINE 200 MG TABLET Take 1 tablet by mouth three * SYRINGE WITH NEEDLE 3 ML 22 G* Use as directed to inject janet* X TESTOSTERONE CYPIONATE 200 MG* Inject 1 mL intramuscularly a* CHOLECALCIFEROL (VITAMIN D3) * Take 1 capsule by mouth once * TRAZODONE 100 MG TABLET Take 1 tablet by mouth daily * MUPIROCIN 2 % TOPICAL OINTMENT Apply 1 application to affect* IPRATROPIUM 0.5 MG-ALBUTEROL * Inhale 3 mL as instructed rachel* X ENOXAPARIN 100 MG/ML SUBCUTAN* Inject 1 mL subcutaneously q * COMPOUNDED PRESCRIPTION Night bag for Baum catheter URINARY BAG Use as needed CATHETER 16 FR to be used as needed ALBUTEROL 90 MCG/ACTUATION AE* Inhale two(2) puffs four(4) t* Problem List As Of Date 03/10/2019 Noted Resolved Achilles Bursitis or Tendinitis [M76.60] 05/07/2004 04/26/2009 Phlebitis and Thrombophlebitis of Unspecified S*09/25/2004 04/26/2009 DEPRESSION [F33.9] 11/21/2004 More... Chronic interstitial cystitis [N30.10] 11/21/2004 Obesity, unspecified [E66.9] 11/21/2004 More... 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 Other Specified Disorder of Male Genital Organs*10/23/2006 04/26/2009 Other pulmonary embolism and infarction [I26.99]01/24/2008 More... More... 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 Left hemiparesis [G81.94] 04/26/2009 More... Scrotal pain [N50.82] 04/26/2009 More... Muscle weakness (generalized) [M62.81] 01/10/2010 Unspecified disorder of skin and subcutaneous t*04/20/2010 Cholelithiasis [K80.20] 05/09/2010 04/10/2016 More... 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 Hematuria [R31.9] 05/19/2011 Low back pain [M54.5] 05/19/2011 Difficulty voiding [R39.198] 05/19/2011 Urinary retention [R33.9] 05/19/2011 More... 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 CNOVon 02-10-2019 OV Office Visit (UROAME ) -- HAL BLANCAS ([id number]) 1970 [facility] Date Time Provider Department 02/10/19 9:00 AM RAINER SOLARES During your visit today, we recorded the following information about you: Weight Height 120.2 kg 1.93 m Rainer Solares MD 02/10/2019 10:16 AM Signed [facility] NEW PATIENT PATIENT INFO: Hal Blancas 48 year old REFERRING M.D.: Julián Urias MD [address] [facility] [address] Last 1 Encounter Wt Readings: Date: Wt: 12/17/2018 120.2 kg (265 lb) Last 1 Encounter Ht Readings: Date: Ht: 12/17/2018 190.5 cm (6' 3) HPI: Patient presents obstructive voiding symptoms. 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 Wire placed under vision. Dilated with cook dilators to 20F. Some resistance with 16F-20F. The scope was negotiated through the pendulous urethra to the level of the bulbar urethra. Bilateral orchiectomy in the past Also had interstim placed by ? 2006 Countless dilations and VIUs in the chart from various Urol providers dating back til [facility]. Presently has an indwelling cath, he had stopped isc and then could not cath. The indwelling was placed Dec 16 Pt has had >=10 instrumentations in the past. Date of his last instrumentation: December 16 2018. Most recent instrumentation: dilation Currently performing ISC? No Indwelling Baum? Yes FREQUENCY OF ISC: N/A Is there history of prior urethral reconstruction? N Type of etiology? iatrogenic Does the patient display erectile dysfunction including any use of PDEI? Yes Is chordee prevalent? N Does the patient have a suprapubic tube ? 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 Wong - Hematuria work up in progress as of 09/24/04 - Hepatomegaly - Hypogonadism in male 2/2 orchiectomy for testicular pain - Left-sided muscle weakness intermittent, has had extensive work up - Obesity - MARC (obstructive sleep apnea) Seeing Dr. Yin, using CPAP - PMH - PAST MEDICAL HISTORY OF scrotal swelling - Pulmonary embolism (HCC) - Retention of urine, unspecified - Snoring - Splenomegaly - Thrombocytopenia (HCC) - Vitamin D deficiency PAST SURGICAL HISTORY Procedure Laterality Date - EXPLORATORY OF ABDOMEN 03/07 Laparotomy, exp; incidental appendectomy - IVC FILTER PERCUTANEOUS 07/04 - IVC FILTER SURGICAL - LAPAROSCOPIC CHOLEYCYSTECTOMY 06-08-14 - PAST SURGICAL HISTORY OF finger rt hand table saw dipj - PAST SURGICAL HISTORY OF Bladder pacemaker - PAST SURGICAL HISTORY OF bilateral achilles repair - PAST SURGICAL HISTORY OF 2006, 2008 bilateral orchiectomy, secondary to pain FAMILY HISTORY: NEGATIVE: No related previous family history. Social History Tobacco Use - Smoking status: Former Smoker Packs/day: 2.00 Years: 2.00 Pack years: 4.00 Types: Cigarettes Last attempt to quit: 07/04/1987 Years since quittin.6 - Smokeless tobacco: Never Used Substance Use Topics - Alcohol use: Yes Comment: occasional - Drug use: No REVIEW OF SYSTEMS: Constitutional: negative Eyes: negative Ear Nose and Throat: negative Cardiovascular: negative Respiratory: MARC Gastrointestinal: negative Musculoskeletal: negative Integumentary: negative Neurological: negative Psychiatric: negative Endocrine: negative Hematologic/Lymphatic: Lupus anticoag, 3 prior thrombotic problems in the past, incl unprecip PE Allergic/Immunologic: negative ====== PHYSICAL EXAM: ====== There were no vitals taken for this visit. GENERAL: WNL nutrition, no deformities, healthy appearing HEAD AND NECK: No masses, adenopathy, icterus. Thyroid nonpalpable RESP: Chest clear to auscultation without wheezing, rales, or rhonchi. CV: RRR, no murmurs, rubs or gallops ABDOMEN: obese, nontender abdomen. scars from neg ex lap for ?diverticular fistula? HERNIAS: None SKIN/LYMPH: No rash, lesions NEURO/PSYCH: No signs of depression, anxiety, or agitation EXTREMITIES: LE edema to knees GENITOURINARY: MALE EXAM: meatus with erythematous patch R glans at fossa. Doesn't appear to be cancer. Meatus eroded a bit. Baum removed and replaced. PVR: >500 ====== MEDICAL DECISION MAKING: ====== (A1) IMPRESSION: (Diagnostic Possibilities) New or Established 1) Urethral stric, I suspect PS or bulbar given his description of having to put cath in a couple inches prior to indwelling baum. Discussed rationale to place SPT and await maturation of stric for 3 months prior to proceeding with repair. Will need consultation for AC management with his known (and presently untreated) lupus AC. Afvter I hear from them, will go from there. 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 T* MUPIROCIN 2 % TOPICAL OINTMENT Apply 1 application to affect* IPRATROPIUM-ALBUTEROL 0.5 MG-* Inhale 3 mL as instructed rachel* ENOXAPARIN 100 MG/ML SUBCUTAN* Inject 1 mL subcutaneously q * COMPOUNDED PRESCRIPTION Night bag for Baum catheter URINARY BAG Use as needed CATHETER 16 FR to be used as needed ALBUTEROL 90 MCG/ACTUATION AE* Inhale two(2) puffs four(4) t* TESTOSTERONE CYPIONATE 200 MG* Inject 1 mL intramuscularly a* Problem List As Of Date 02/10/2019 Noted Resolved Achilles Bursitis or Tendinitis [M76.60] 05/07/2004 04/26/2009 Phlebitis and Thrombophlebitis of Unspecified S*09/25/2004 04/26/2009 DEPRESSION [F33.9] 11/21/2004 More... Chronic interstitial cystitis [N30.10] 11/21/2004 Obesity, unspecified [E66.9] 11/21/2004 More... 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 Other Specified Disorder of Male Genital Organs*10/23/2006 04/26/2009 Other pulmonary embolism and infarction [I26.99]01/24/2008 More... More... 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 Left hemiparesis [G81.94] 04/26/2009 More... Scrotal pain [N50.82] 04/26/2009 More... Muscle weakness (generalized) [M62.81] 01/10/2010 Unspecified disorder of skin and subcutaneous t*04/20/2010 Cholelithiasis [K80.20] 05/09/2010 04/10/2016 More... 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 Hematuria [R31.9] 05/19/2011 Low back pain [M54.5] 05/19/2011 Difficulty voiding [R39.198] 05/19/2011 Urinary retention [R33.9] 05/19/2011 More... 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 PROGRESSon 02-10-2019 PROGRESS HNO ID: [id number] Author: Rainer Solares Service: ? Author Type: Physician Type: Progress Notes Filed: 02/10/2019 10:16 AM Note Text: [facility] NEW [facility] PATIENT INFO: Hal Blancas 48 year old REFERRING M.D.: Julián Urias MD [address] [facility] [address] Last 1 Encounter Wt Readings: Date: Wt: 12/17/2018 120.2 kg (265 lb) Last 1 Encounter Ht Readings: Date: Ht: 12/17/2018 190.5 cm (6' 3) HPI: Patient presents obstructive voiding symptoms. 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 Wire placed under vision. Dilated with cook dilators to 20F. Some resistance with 16F-20F. The scope was negotiated through the pendulous urethra to the level of the bulbar urethra. Bilateral orchiectomy in the past Also had interstim placed by ? 2006 Countless dilations and VIUs in the chart from various Urol providers dating back til [facility]. Presently has an indwelling cath, he had stopped isc and then could not cath. The indwelling was placed Dec 16 Pt has had >=10 instrumentations in the past. Date of his last instrumentation: December 16 2018. Most recent instrumentation: dilation Currently performing ISC? No Indwelling Baum? Yes FREQUENCY OF ISC: N/A Is there history of prior urethral reconstruction? N Type of etiology? iatrogenic Does the patient display erectile dysfunction including any use of PDEI? Yes Is chordee prevalent? N Does the patient have a suprapubic tube ? 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 Wong - Hematuria work up in progress as of 09/24/04 - Hepatomegaly - Hypogonadism in male 04/03 orchiectomy for testicular pain - Left-sided muscle weakness intermittent, has had extensive work up - Obesity - MARC (obstructive sleep apnea) Seeing Dr. Yin, using CPAP - PMH - PAST MEDICAL HISTORY OF scrotal swelling - Pulmonary embolism (HCC) - Retention of urine, unspecified - Snoring - Splenomegaly - Thrombocytopenia (HCC) - Vitamin D deficiency PAST SURGICAL HISTORY Procedure Laterality Date - EXPLORATORY OF ABDOMEN 03/07 Laparotomy, exp; incidental appendectomy - IVC FILTER PERCUTANEOUS 07/04 - IVC FILTER SURGICAL - LAPAROSCOPIC CHOLEYCYSTECTOMY 06-08-14 - PAST SURGICAL HISTORY OF finger rt hand table saw evette - PAST SURGICAL HISTORY OF Bladder pacemaker - PAST SURGICAL HISTORY OF bilateral achilles repair - PAST SURGICAL HISTORY OF 2006, 2008 bilateral orchiectomy, secondary to pain FAMILY HISTORY: NEGATIVE: No related previous family history. Social History Tobacco Use - Smoking status: Former Smoker Packs/day: 2.00 Years: 2.00 Pack years: 4.00 Types: Cigarettes Last attempt to quit: 07/04/1987 Years since quittin.6 - Smokeless tobacco: Never Used Substance Use Topics - Alcohol use: Yes Comment: occasional - Drug use: No REVIEW OF SYSTEMS: Constitutional: negative Eyes: negative Ear Nose and Throat: negative Cardiovascular: negative Respiratory: MARC Gastrointestinal: negative Musculoskeletal: negative Integumentary: negative Neurological: negative Psychiatric: negative Endocrine: negative Hematologic/Lymphatic: Lupus anticoag, 3 prior thrombotic problems in the past, incl unprecip PE Allergic/Immunologic: negative ====== PHYSICAL EXAM: ====== There were no vitals taken for this visit. GENERAL: WNL nutrition, no deformities, healthy appearing HEAD AND NECK: No masses, adenopathy, icterus. Thyroid nonpalpable RESP: Chest clear to auscultation without wheezing, rales, or rhonchi. CV: RRR, no murmurs, rubs or gallops ABDOMEN: obese, nontender abdomen. scars from neg ex lap for ?diverticular fistula? HERNIAS: None SKIN/LYMPH: No rash, lesions NEURO/PSYCH: No signs of depression, anxiety, or agitation EXTREMITIES: LE edema to knees GENITOURINARY: MALE EXAM: meatus with erythematous patch R glans at fossa. Doesn't appear to be cancer. Meatus eroded a bit. Baum removed and replaced. PVR: >500 ====== MEDICAL DECISION MAKING: ====== (A1) IMPRESSION: (Diagnostic Possibilities) New or Established 1) Urethral stric, I suspect PS or bulbar given his description of having to put cath in a couple inches prior to indwelling abum. Discussed rationale to place SPT and await maturation of stric for 3 months prior to proceeding with repair. Will need consultation for AC management with his known (and presently untreated) lupus AC. Afvter I hear from them, will go from there. Hold 03/31 Rainer Solares MD Electronically signed [facility] QUESTIONNA[facility] Normal [facility] Cult Urineon 12-07-2018 Cult Urine Test performed at [facility] ORGANISM: *Gram Positive Cocci (ID: 1) 10,000-50,000 CFU/ml Normal urogenital hans. Normal [facility] Comment on above: Performed By: #### C _URI #### [address] [address] Vital Signs Date Time Vital Sign Value Performing Clinician Esperanza rodríguez 11-03-2024 11:07-0400 Body height 187.[address] Paul Urias MD Work Phone: [facility] 11-03-2024 11:07-0400 Body mass index (BMI) [Ratio] 31.6 kg/m2 Dr. Paul Urias MD Work Phone: [facility] 11-03-2024 11:07-0400 Body weight 111.[address] Paul Urias MD Work Phone: 5(786)785-909132 [place] [address] 11-03-2024 11:07-0400 Diastolic blood pressure 71 mm[Hg] Dr. Paul Urias MD Work Phone: 0(890)798-438726 [place] [address] 11-03-2024 11:07-0400 Heart rate 82 /min Dr. Paul Urias MD Work Phone: 2(040)616-609632 [place] [address] 11-03-2024 11:07-0400 SaO2% (BldA) [Mass fraction] 96 % Dr. Paul Urias MD Work Phone: [facility] 11-03-2024 11:07-0400 Systolic blood pressure 110 mm[Hg] Dr. Paul Urias MD Work Phone: [facility] 10-24-2024 10:46-0400 Body height 186.7 cm Dexter Wnog DO Work Phone: [facility] 10-24-2024 10:46-0400 Body mass index (BMI) [Ratio] 30.32 kg/m2 Dexter Babcocki DO Work Phone: [facility] 10-24-2024 10:46-0400 Body temperature 98.01 [degF] Dexter Babcocki DO Work Phone: [facility] 10-24-2024 10:46-0400 Body weight 105.69 kg Dexter Babcocki DO Work Phone: [facility] 10-24-2024 10:46-0400 Diastolic blood pressure 60 mm[Hg] Dexter Wong DO Work Phone: [facility] 10-24-2024 10:46-0400 Heart rate 65 /min Dexter Wong DO Work Phone: [facility] 10-24-2024 10:46-0400 SaO2% (BldA) [Mass fraction] 100 % Dexter Babcocki DO Work Phone: [facility] 10-24-2024 10:46-0400 Systolic blood pressure 96 mm[Hg] Dexter Wong DO Work Phone: [facility] 09-09-2024 14:24-0400 Body height 187.[address] Paul Urias MD Work Phone: 7(251)966-105532 [place] [address] 09-09-2024 14:24-0400 Body mass index (BMI) [Ratio] 30.5 kg/m2 Dr. Paul Urias MD Work Phone: 5(307)145-220426 [place] [address] 09-09-2024 14:24-0400 Body weight 107.[address] Paul Urias MD Work Phone: 6(318)555-904226 [place] [address] 09-09-2024 14:24-0400 Diastolic blood pressure 73 mm[Hg] Dr. Paul Urias MD Work Phone: 6(492)939-470826 [place] [address] 09-09-2024 14:24-0400 Heart rate 86 /min Dr. Paul Urias MD Work Phone: 0(465)668-313926 [place] [address] 09-09-2024 14:24-0400 SaO2% (BldA) [Mass fraction] 95 % Dr. Paul Urias MD Work Phone: 8(989)570-333026 [place] [address] 09-09-2024 14:24-0400 Systolic blood pressure 122 mm[Hg] Dr. Paul Urias MD Work Phone: 7(378)671-360626 [place] [address] 08-16-2024 17:08-0400 Body temperature 97.9 [degF] Dr. Paul Urias MD Work Phone: 4(516)705-612826 [place] [address] 08-16-2024 17:08-0400 Diastolic blood pressure 62 mm[Hg] Dr. Paul Urias MD Work Phone: 8(010)361-028126 [place] [address] 08-16-2024 17:08-0400 Heart rate 79 /min Dr. Paul Urias MD Work Phone: 4(359)707-521526 [place] [address] 08-16-2024 17:08-0400 Respiratory rate 16 /min Dr. Paul Urias MD Work Phone: 0(303)627-069126 [place] [address] 08-16-2024 17:08-0400 SaO2% (BldA) [Mass fraction] 98 % Dr. Paul Urias MD Work Phone: 6(657)778-108326 [place] [address] 08-16-2024 17:08-0400 Systolic blood pressure 122 mm[Hg] Dr. Paul Urias MD Work Phone: 6(656)886-613626 [place] [address] 08-15-2024 11:24-0400 Body height 187.[address] Paul Urias MD Work Phone: 5(688)494-906126 [place] [address] 08-15-2024 11:24-0400 Body mass index (BMI) [Ratio] 33.4 kg/m2 Dr. Paul Urias MD Work Phone: 9(177)119-566926 [place] [address] 08-15-2024 11:24-0400 Body weight 118.[address] Paul Urias MD Work Phone: 3(903)109-445926 [place] [address] 08-15-2024 11:24-0400 Diastolic blood pressure 71 mm[Hg] Dr. Paul Urias MD Work Phone: 3(437)900-364326 [place] [address] 08-15-2024 11:24-0400 Heart rate 77 /min Dr. Paul Urias MD Work Phone: 9(977)003-819226 [place] [address] 08-15-2024 11:24-0400 Respiratory rate 20 /min Dr. Paul Urias MD Work Phone: 9(987)133-456626 [place] [address] 08-15-2024 11:24-0400 SaO2% (BldA) [Mass fraction] 96 % Dr. Paul Urias MD Work Phone: 9(651)601-717826 [place] [address] 08-15-2024 11:24-0400 Systolic blood pressure 110 mm[Hg] Dr. Paul Urias MD Work Phone: [facility] 08-10-2024 14:12-0400 Body mass index (BMI) [Ratio] 34.71 kg/m2 Marli Podlogar HOTHOUSE WORKER.BUSINESS OPERATIONS COORDINATOR Work Phone: [facility] 08-10-2024 14:12-0400 Body temperature 98.1 [degF] Marli Podlogar HOTHOUSE WORKER.BUSINESS OPERATIONS COORDINATOR Work Phone: [facility] 08-10-2024 14:12-0400 Body weight 121.38 kg Marli Podlogar HOTHOUSE WORKER.BUSINESS OPERATIONS COORDINATOR Work Phone: [facility] 08-10-2024 14:12-0400 Diastolic blood pressure 68 mm[Hg] Marli Podlogar HOTHOUSE WORKER.BUSINESS OPERATIONS COORDINATOR Work Phone: [facility] 08-10-2024 14:12-0400 Heart rate 86 /min Marli Podlogar HOTHOUSE WORKER.BUSINESS OPERATIONS COORDINATOR Work Phone: [facility] 08-10-2024 14:12-0400 Respiratory rate 18 /min Marli Podlogar HOTHOUSE WORKER.BUSINESS OPERATIONS COORDINATOR Work Phone: [facility] 08-10-2024 14:12-0400 SaO2% (BldA) [Mass fraction] 97 % Marli Podlogar HOTHOUSE WORKER.BUSINESS OPERATIONS COORDINATOR Work Phone: [facility] 08-10-2024 14:12-0400 Systolic blood pressure 128 mm[Hg] Marli Podlogar HOTHOUSE WORKER.BUSINESS OPERATIONS COORDINATOR Work Phone: [facility] 06-20-2024 14:43-0400 Body mass index (BMI) [Ratio] 33.46 kg/m2 Krystin Levi HOTHOUSE WORKER.LATRINE CLEANER Work Phone: [facility] 06-20-2024 14:43-0400 Body temperature 97.5 [degF] Krystin Levi HOTHOUSE WORKER.LATRINE CLEANER Work Phone: [facility] 06-20-2024 14:43-0400 Body weight 117 kg Krystin Levi HOTHOUSE WORKER.LATRINE CLEANER Work Phone: [facility] 06-20-2024 14:43-0400 Diastolic blood pressure 66 mm[Hg] Krystin Levi HOTHOUSE WORKER.LATRINE CLEANER Work Phone: [facility] 06-20-2024 14:43-0400 Heart rate 85 /min Krystin Levi HOTHOUSE WORKER.LATRINE CLEANER Work Phone: [facility] 06-20-2024 14:43-0400 Respiratory rate 16 /min Krystin Levi HOTHOUSE WORKER.LATRINE CLEANER Work Phone: [facility] 06-20-2024 14:43-0400 SaO2% (BldA) [Mass fraction] 96 % Krystin Levi HOTHOUSE WORKER.LATRINE CLEANER Work Phone: [facility] 06-20-2024 14:43-0400 Systolic blood pressure 106 mm[Hg] Krystin Levi HOTHOUSE WORKER.LATRINE CLEANER Work Phone: [facility] 04-06-2024 09:33-0500 Body mass index (BMI) [Ratio] 31.63 kg/m2 Marli Podlogar HOTHOUSE WORKER.BUSINESS OPERATIONS COORDINATOR Work Phone: [facility] 04-06-2024 09:33-0500 Body weight 110.6 kg Marli Podlogar HOTHOUSE WORKER.BUSINESS OPERATIONS COORDINATOR Work Phone: [facility] 04-06-2024 09:33-0500 Diastolic blood pressure 66 mm[Hg] Marli Podlogar HOTHOUSE WORKER.BUSINESS OPERATIONS COORDINATOR Work Phone: [facility] 04-06-2024 09:33-0500 Heart rate 74 /min Marli Podlogar HOTHOUSE WORKER.BUSINESS OPERATIONS COORDINATOR Work Phone: [facility] 04-06-2024 09:33-0500 Respiratory rate 18 /min Marli Podlogar HOTHOUSE WORKER.BUSINESS OPERATIONS COORDINATOR Work Phone: [facility] 04-06-2024 09:33-0500 SaO2% (BldA) [Mass fraction] 98 % Marli Podlogar HOTHOUSE WORKER.BUSINESS OPERATIONS COORDINATOR Work Phone: [facility] 04-06-2024 09:33-0500 Systolic blood pressure 98 mm[Hg] Marli Podlogar HOTHOUSE WORKER.BUSINESS OPERATIONS COORDINATOR Work Phone: [facility] 09-10-2023 08:57-0400 Body mass index (BMI) [Ratio] 31.94 kg/m2 Julián Urias MD Work Phone: [facility] 09-10-2023 08:57-0400 Body weight 111.68 kg Julián Urias MD Work Phone: [facility] 09-10-2023 08:57-0400 Diastolic blood pressure 60 mm[Hg] Julián Urias MD Work Phone: [facility] 09-10-2023 08:57-0400 Heart rate 84 /min Julián Urias MD Work Phone: [facility] 09-10-2023 08:57-0400 Respiratory rate 18 /min Julián Urias MD Work Phone: [facility] 09-10-2023 08:57-0400 SaO2% (BldA) [Mass fraction] 96 % Julián Urias MD Work Phone: [facility] 09-10-2023 08:57-0400 Systolic blood pressure 110 mm[Hg] Julián Urias MD Work Phone: [facility] 02-11-2023 09:48-0500 Body weight 112.76 kg Marli Podlogar HOTHOUSE WORKER.BUSINESS OPERATIONS COORDINATOR Work Phone: [facility] 02-11-2023 09:48-0500 Diastolic blood pressure 62 mm[Hg] Marli Podlogar HOTHOUSE WORKER.BUSINESS OPERATIONS COORDINATOR Work Phone: [facility] 02-11-2023 09:48-0500 Heart rate 97 /min Marli Podlogar HOTHOUSE WORKER.BUSINESS OPERATIONS COORDINATOR Work Phone: [facility] 02-11-2023 09:48-0500 Respiratory rate 18 /min Marli Podlogar HOTHOUSE WORKER.BUSINESS OPERATIONS COORDINATOR Work Phone: [facility] 02-11-2023 09:48-0500 SaO2% (BldA) [Mass fraction] 98 % Marli Podlogbentley HOTHOUSE WORKER.BUSINESS OPERATIONS COORDINATOR Work Phone: [facility] 02-11-2023 09:48-0500 Systolic blood pressure 98 mm[Hg] Marli Podlogar HOTHOUSE WORKER.BUSINESS OPERATIONS COORDINATOR Work Phone: [facility] 09-11-2022 13:35-0400 Body temperature 98.71 [degF] [facility] HOTHOUSE WORKER.BUSINESS OPERATIONS COORDINATOR Work Phone: [facility] 09-11-2022 13:35-0400 Body weight 113.22 kg [facility] HOT[facility]SE WORKER.BUSINESS OPERATIONS COORDINATOR Work Phone: [facility] 09-11-2022 13:35-0400 Diastolic blood pressure 64 mm[Hg] Zackary Pendlebury HOTHOUSE WORKER.BUSINESS OPERATIONS COORDINATOR Work Phone: [facility] 09-11-2022 13:35-0400 Heart rate 95 /min Zackary Pendlebury HOTHOUSE WORKER.BUSINESS OPERATIONS COORDINATOR Work Phone: [facility] 09-11-2022 13:35-0400 Respiratory rate 20 /min [facility] HOTHOUSE WORKER.BUSINESS OPERATIONS COORDINATOR Work Phone: [facility] 09-11-2022 13:35-0400 SaO2% (BldA) [Mass fraction] 98 % Zackary Pendlegregor HOTHOUSE WORKER.BUSINESS OPERATIONS COORDINATOR Work Phone: [facility] 09-11-2022 13:35-0400 Systolic blood pressure 100 mm[Hg] Zackary Pendlebury HOTHOUSE WORKER.BUSINESS OPERATIONS COORDINATOR Work Phone: [facility] 06-25-2022 09:28-0400 Body temperature 96.8 [degF] Julián Urias MD Work Phone: [facility] 06-25-2022 09:28-0400 Body weight 114.44 kg Julián Urias MD Work Phone: [facility] 06-25-2022 09:28-0400 Diastolic blood pressure 60 mm[Hg] Julián Urias MD Work Phone: [facility] 06-25-2022 09:28-0400 Heart rate 88 /min Julián Urias MD Work Phone: [facility] 06-25-2022 09:28-0400 Respiratory rate 16 /min Julián Urias MD Work Phone: [facility] 06-25-2022 09:28-0400 SaO2% (BldA) [Mass fraction] 98 % Julián Urias MD Work Phone: [facility] 06-25-2022 09:28-0400 Systolic blood pressure 102 mm[Hg] Julián Urias MD Work Phone: [facility] 05-23-2022 11:21-0400 Body height 187 cm Dexter Masci DO Work Phone: [facility] 05-23-2022 11:21-0400 Body temperature 97.3 [degF] Dexter Masci DO Work Phone: [facility] 05-23-2022 11:21-0400 Body weight 114.31 kg Dexter Masci DO Work Phone: [facility] 05-23-2022 11:21-0400 Diastolic blood pressure 67 mm[Hg] Dexter Masci DO Work Phone: [facility] 05-23-2022 11:21-0400 Heart rate 87 /min Dexter Masci DO Work Phone: [facility] 05-23-2022 11:21-0400 SaO2% (BldA) [Mass fraction] 97 % Dexter Masci DO Work Phone: [facility] 05-23-2022 11:21-0400 Systolic blood pressure 100 mm[Hg] Dexter Masci DO Work Phone: [facility] 01-01-2022 12:47-0400 Body height 188 cm Pacc 1 Work Phone: [facility] 01-01-2022 12:47-0400 Body temperature 98.01 [degF] Pacc 1 Work Phone: [facility] 01-01-2022 12:47-0400 Body weight 111.58 kg Pacc 1 Work Phone: [facility] 01-01-2022 12:47-0400 Diastolic blood pressure 56 mm[Hg] Pacc 1 Work Phone: [facility] 01-01-2022 12:47-0400 Heart rate 89 /min Pacc 1 Work Phone: [facility] 01-01-2022 12:47-0400 Respiratory rate 16 /min Pacc 1 Work Phone: [facility] 01-01-2022 12:47-0400 SaO2% (BldA) [Mass fraction] 97 % Pacc 1 Work Phone: [facility] 01-01-2022 12:47-0400 Systolic blood pressure 108 mm[Hg] Pacc 1 Work Phone: [facility] 12-25-2021 09:43-0400 Body weight 112.58 kg Julián Urias MD Work Phone: [facility] 12-25-2021 09:43-0400 Diastolic blood pressure 70 mm[Hg] Julián Urias MD Work Phone: [facility] 12-25-2021 09:43-0400 Heart rate 80 /min Julián Urias MD Work Phone: [facility] 12-25-2021 09:43-0400 Respiratory rate 16 /min Julián Urias MD Work Phone: [facility] 12-25-2021 09:43-0400 Systolic blood pressure 106 mm[Hg] Julián Urias MD Work Phone: [facility] 10-23-2021 13:30-0400 Body temperature 98.01 [degF] Julián Urias MD Work Phone: [facility] 10-23-2021 13:30-0400 Body weight 111.13 kg Julián Urias MD Work Phone: [facility] 10-23-2021 13:30-0400 Diastolic blood pressure 70 mm[Hg] Julián Urias MD Work Phone: [facility] 10-23-2021 13:30-0400 Heart rate 74 /min Julián Urias MD Work Phone: [facility] 10-23-2021 13:30-0400 Respiratory rate 16 /min Julián Urias MD Work Phone: [facility] 10-23-2021 13:30-0400 SaO2% (BldA) [Mass fraction] 98 % Julián Urias MD Work Phone: [facility] 10-23-2021 13:30-0400 Systolic blood pressure 110 mm[Hg] Julián Urias MD Work Phone: [facility] 09-06-2021 09:21-0400 Body weight 110.5 kg Julián Urias MD Work Phone: [facility] 09-06-2021 09:21-0400 Diastolic blood pressure 60 mm[Hg] Julián Urias MD Work Phone: [facility] 09-06-2021 09:21-0400 Heart rate 67 /min Julián Urias MD Work Phone: [facility] 09-06-2021 09:21-0400 Respiratory rate 18 /min Julián Urias MD Work Phone: [facility] 09-06-2021 09:21-0400 SaO2% (BldA) [Mass fraction] 97 % Julián Urias MD Work Phone: [facility] 09-06-2021 09:21-0400 Systolic blood pressure 102 mm[Hg] Julián Urias MD Work Phone: [facility] 08-23-2021 14:38-0400 Diastolic blood pressure 70 mm[Hg] Juan Amador MD Work Phone: [facility] 08-23-2021 14:38-0400 Heart rate 83 /min Juan Amador MD Work Phone: [facility] 08-23-2021 14:38-0400 Systolic blood pressure 107 mm[Hg] Juan Amador MD Work Phone: [facility] 08-06-2021 12:15-0400 Body height 188 cm Shanthi Grace RN Work Phone: [facility] 08-06-2021 12:15-0400 Body weight 106.59 kg Shanthi Grace RN Work Phone: [facility] 07-15-2021 08:00-0400 Diastolic blood pressure 75 mm[Hg] Quentin Chavez MD Work Phone: [facility] 07-15-2021 08:00-0400 Systolic blood pressure 120 mm[Hg] Quentin Chavez MD Work Phone: [facility] 07-15-2021 07:58-0400 Body weight 111.58 kg Quentin Chavez MD Work Phone: [facility] 07-15-2021 07:58-0400 Heart rate 83 /min Quentin Chavez MD Work Phone: [facility] 07-15-2021 07:58-0400 Respiratory rate 16 /min Quentin Chavez MD Work Phone: [facility] 07-15-2021 07:58-0400 SaO2% (BldA) [Mass fraction] 97 % uQentin Chavez MD Work Phone: [facility] 07-08-2021 10:12-0400 Body temperature 97.81 [degF] Renny Yin Jr., MD Work Phone: [facility] 07-08-2021 10:12-0400 Body weight 112.95 kg Renny Yin Jr., MD Work Phone: [facility] 07-08-2021 10:12-0400 Diastolic blood pressure 60 mm[Hg] Renny Yin Jr., MD Work Phone: [facility] 07-08-2021 10:12-0400 Heart rate 89 /min Renny Yin Jr., MD Work Phone: [facility] 07-08-2021 10:12-0400 Respiratory rate 18 /min Renny Yin Jr., MD Work Phone: [facility] 07-08-2021 10:12-0400 SaO2% (BldA) [Mass fraction] 98 % Renny Yin Jr., MD Work Phone: [facility] 07-08-2021 10:12-0400 Systolic blood pressure 118 mm[Hg] Renny Yin Jr., MD Work Phone: [facility] 07-03-2021 09:24-0400 Body height 188 cm Pacc 1 Work Phone: [facility] 07-03-2021 09:24-0400 Body temperature 96.91 [degF] Pacc 1 Work Phone: [facility] 07-03-2021 09:24-0400 Body weight 112.49 kg Pacc 1 Work Phone: [facility] 07-03-2021 09:24-0400 Diastolic blood pressure 72 mm[Hg] Pacc 1 Work Phone: [facility] 07-03-2021 09:24-0400 Heart rate 88 /min Pacc 1 Work Phone: [facility] 07-03-2021 09:24-0400 Respiratory rate 16 /min Pacc 1 Work Phone: [facility] 07-03-2021 09:24-0400 SaO2% (BldA) [Mass fraction] 98 % Pacc 1 Work Phone: [facility] 07-03-2021 09:24-0400 Systolic blood pressure 122 mm[Hg] Pacc 1 Work Phone: [facility] 05-20-2021 10:12-0400 Body height 187.[address] Paul Urias Work Phone: [facility] Work Phone: 05-20-2021 10:12-0400 Body mass index (BMI) [Ratio] 32.3 kg/m2 Dr. Paul Urias Work Phone: [facility] Work Phone: 05-20-2021 10:12-0400 Body temperature 96.4 [degF] Dr. Paul Urias Work Phone: [facility] Work Phone: 05-20-2021 10:12-0400 Body weight 114.[address] Paul Urias Work Phone: [facility] Work Phone: 05-20-2021 10:12-0400 Diastolic blood pressure 64 mm[Hg] Dr. Paul Urias Work Phone: [facility] Work Phone: 05-20-2021 10:12-0400 Heart rate 75 /min Dr. Paul Urias Work Phone: [facility] Work Phone: 05-20-2021 10:12-0400 Respiratory rate 16 /min Dr. Paul Urias Work Phone: [facility] Work Phone: 05-20-2021 10:12-0400 SaO2% (BldA) [Mass fraction] 97 % Dr. Paul Urias Work Phone: [facility] Work Phone: 05-20-2021 10:12-0400 Systolic blood pressure 100 mm[Hg] Dr. Paul Urias Work Phone: [facility] Work Phone: Encounters Encounter Date Encounter Type Care Provider Facility Start: 11-24-2024 ambulatory Paul Mata lity:[facility] Start: 11-21-2024 End: 11-21-2024 ambulatory JULIÁN URIAS Facility:[facility] Start: 11-09-2024 End: 11-09-2024 ambulatory JULIÁN URIAS Facility:[facility] Start: 11-03-2024 End: 11-03-[address] Raad Luna MD -[facility] Work Phone: Start: 11-03-2024 End: 11-03-[address] Paul Urias MD Work Phone: -[facility] Start: 10-24-2024 End: 10-24-2024 Office outpatient visit 25 minutes Dexter Wong DO Work Phone: Hematology/Oncology Comment on above: Lupus anticoagulant disorder (HCC) (Primary Dx); Recurrent deep vein thrombosis (DVT) (HCC); Anemia, unspecified type; Thrombocytopenia; Splenomegaly Start: 10-24-2024 End: 10-27-2024 Refill Marli Podlogar HOTHOUSE WORKER.BUSINESS OPERATIONS COORDINATOR Work Phone: [facility] Comment on above: Refill Request Results Start: 10-13-2024 ambulatory Paul Mata lity:[facility] Start: 09-15-2024 End: 09-15-2024 Transcribe Orders Ap Anguiano Work Phone: Referring Physician Comment on above: Decompensated cirrho sis (HCC) (Primary Dx) Start: 09-09-2024 End: 09-09-[address] Ap Anguiano MD -[facility] Work Phone: Start: 09-09-2024 End: 09-09-[address] Paul Urias MD Work Phone: -[facility] Start: 08-31-2024 End: 09-01-2024 Refill Marli Podlogar HOTHOUSE WORKER.BUSINESS OPERATIONS COORDINATOR Work Phone: [facility] Comment on above: Refill Request Start: 08-24-2024 End: 08-24-[address] Paul Urias MD Work Phone: -Laboratory Start: 08-24-2024 End: 08-24-2024 Patient encounter procedure Padmini VELEZ -Laboratory Work Phone: Start: 08-24-2024 End: 08-24-2024 ambulatory Padmini Bauer Facility:[facility] Start: 08-16-2024 ambulatory Padmini Juancarlos Facili ty:[facility] Start: 08-16-2024 Non-patient / Non-visit Anahy marcus NP-C -[facility] Start: 08-16-2024 End: 08-16-2024 Patient encounter procedure Padmini Bauer NP-C -[facility] Work Phone: Start: 08-16-2024 End: 08-16-[address] Paul Urias MD Work Phone: [facility] Work Phone: Start: 08-15-2024 End: 08-16-2024 Telephone encounter Julián Urias MD Work Phone: [facility] Comment on above: [facility] question regardi ng procedure Start: 08-15-2024 End: 08-15-[address] Paul Urias MD Work Phone: [facility] Work Phone: Start: 08-15-2024 End: 08-15-2024 Patient encounter procedure Padmini ESCOBEDOC -Laboratory Work Phone: Start: 08-15-2024 End: 08-15-2024 Patient encounter procedure Padmini ESCOBEDOC -[facility] Work Phone: Start: 08-15-2024 End: 08-15-[address] Paul Urias MD Work Phone: [facility] Work Phone: Start: 08-15-2024 End: 08-15-2024 ambulatory Padmini Bauer Facility:[facility] Start: 08-12-2024 End: 08-12-2024 Telephone encounter Julián Urias MD Work Phone: [facility] Comment on above: Faxed to [facility] Start: 08-11-2024 End: 08-12-2024 Follow-up encounter Julián Urias MD Work Phone: [facility] [place] Start: 08-11-2024 End: 08-11-2024 Telephone encounter Marli Cook APRN.BUSINESS OPERATIONS COORDINATOR Work Phone: [facility] Start: 08-11-2024 End: 08-11-2024 ambulatory MARLI COOK Facility:[facility] Start: 08-11-2024 End: 08-11-2024 Subsequent hospital visit by physician Ct Prep [facility] Comment on above: Cirrhosis, nonalcoho lic (HCC) [K74.60] Start: 08-10-2024 End: 08-10-2024 Patient encounter procedure Marli Cook APRN.BUSINESS OPERATIONS COORDINATOR Work Phone: [facility] [place] Comment on above: Cirrhosis, nonalcoho lic (HCC) (Primary Dx); Abdominal swelling, generalized; Splenomegaly; Dark stools Start: 08-10-2024 End: 08-10-2024 ambulatory Julián Urias MD Work Phone: [facility] [place] Comment on above: abdominal discomfort Start: 06-20-2024 End: 06-20-2024 Subsequent hospital visit by physician Xr [facility] Work Phone: Radiology Comment on above: Acute cough [R05.1] Start: 06-20-2024 End: 06-20-2024 Office outpatient visit 15 minutes Krystin Levi APRN.LATRINE CLEANER Work Phone: [facility] [place] Comment on above: Acute cough (Primary Dx) Start: 06-20-2024 End: 06-20-2024 ambulatory Julián Urias MD Work Phone: [facility] [place] Comment on above: Cough Start: 06-20-2024 End: 08-20-2024 Follow-up encounter Krystin Levi APRN.LATRINE CLEANER Work Phone: [facility] [place] Start: 04-06-2024 End: 04-06-2024 Patient encounter procedure Marli Cook APRN.BUSINESS OPERATIONS COORDINATOR Work Phone: [facility] [place] Comment on above: Hyperlipidemia, unsp ecified hyperlipidemia type (Primary Dx); Diabetes mellitus type II (HCC); Encounter for immunization; Hypothyroidism, unspecified type; Cirrhosis, nonalcoholic (HCC); Splenomegaly; Neutropenia, unspecified type (HCC); MARC (obstructive sleep apnea); Lupus anticoagulant disorder (HCC); Recurrent deep vein thrombosis (DVT) (HCC); Chronic insomnia Start: 04-06-2024 End: 04-06-2024 ambulatory JULIÁN URIAS Facility:[facility] Start: 04-05-2024 End: 04-06-2024 ambulatory Dexter Wong Work Phone: Hematology/Oncology Comment on above: Have blood taken. Start: 09-17-2023 Telephone encounter Paul Urias MD Work Phone: [facility] Comment on above: Results Start: 09-10-2023 End: 09-10-2023 Patient encounter procedure Julián Urias MD Work Phone: [facility] Comment on above: Annual physical exam (Primary Dx); Diabetes mellitus type II (HCC); Hypothyroidism, unspecified type; Cirrhosis, nonalcoholic (HCC); Secondary esophageal varices without bleeding (HCC); Splenomegaly; Polycythemia, secondary; Neutropenia, unspecified type (HCC); Thrombocytopenia (HCC); MARC (obstructive sleep apnea); Hyperlipidemia, unspecified hyperlipidemia type; Recurrent deep vein thrombosis (DVT) (HCC); Episode of recurrent major depressive disorder, unspecified depression episode severity (HCC); Chronic insomnia Start: 09-09-2023 ambulatory Waleska Flores MA [facility] Start: 09-09-2023 Patient encounter procedure Waleska Flores MA [facility] Comment on above: Population Health Na vigation Outreach ([place] Med Adherence) Start: 07-07-2023 ambulatory Jessika Fregoso MA [facility] Start: 07-07-2023 Patient encounter procedure Jessika Fregoso MA [facility] Comment on above: Population Health Na vigation Outreach ([place] AWV/HCC and care gaps ) Start: 05-20-2023 Refill Marli Cook APRN.CNP Work Phone: [facility] Comment on above: Refill Request Refill Start: 02-11-2023 End: 02-11-2023 Patient encounter procedure Marli Barahonalogbentley HOTHOUSE WORKER.BUSINESS OPERATIONS COORDINATOR Work Phone: [facility] [place] Comment on above: Hypothyroidism, unsp ecified type (Primary Dx); Diabetes mellitus type II (HCC); Cirrhosis, nonalcoholic (HCC); Encounter for immunization; Splenomegaly; MARC (obstructive sleep apnea); Secondary esophageal varices without bleeding (HCC); Hyperlipidemia, unspecified hyperlipidemia type; Chronic insomnia; Polycythemia, secondary; Thrombocytopenia (HCC) Start: 09-15-2022 Refill Marli Barahonalogbentley HOTHOUSE WORKER.BUSINESS OPERATIONS COORDINATOR Work Phone: [facility] [place] Comment on above: Refill Request Start: 09-12-2022 Telephone encounter Paul Urias MD Work Phone: [facility] [place] Comment on above: Medication Request Start: 09-11-2022 Telephone encounter Zackary cohen HOTHOUSE WORKER.BUSINESS OPERATIONS COORDINATOR Work Phone: [facility] Comment on above: Results Start: 09-11-2022 End: 09-11-2022 Subsequent hospital visit by physician Xr [facility] [place] Work Phone: Radiology Comment on above: Acute cough [R05.1] Start: 09-11-2022 End: 09-11-2022 Office outpatient visit 15 minutes Zackary Grewal HOTHOUSE WORKER.BUSINESS OPERATIONS COORDINATOR Work Phone: [facility] Comment on above: Acute cough (Primary Dx); URI with cough and congestion Start: 09-08-2022 Refill Julián Urias MD Work Phone: [facility] Comment on above: Refill Request Start: 09-07-2022 Refill Julián Urias MD Work Phone: [facility] [place] Comment on above: Refill Request Start: 06-30-2022 Get Medical Advice Nasir Riggs MD Work Phone: Gastroenterology Comment on above: Test ordered Start: 06-25-2022 End: 06-25-2022 Patient encounter procedure Julián Urias MD Work Phone: [facility] Comment on above: Diabetes mellitus ty pe II (HCC) (Primary Dx); Cirrhosis, nonalcoholic (HCC); Recurrent deep vein thrombosis (DVT) (HCC); Splenomegaly; MARC (obstructive sleep apnea); Hypothyroidism, unspecified type; Chronic insomnia; Obesity (BMI 30-39.9); Primary testicular hypogonadism; Need for vaccination; Secondary esophageal varices without bleeding (HCC); Recurrent major depressive disorder, in remission (HCC) Start: 06-18-2022 Telephone encounter Nasir rivas MD Work Phone: Gastroenterology Comment on above: Orders Start: 06-05-2022 End: 06-05-2022 Subsequent hospital visit by physician [facility] ([facility]) Work Phone: Cat Scan Comment on above: Splenomegaly, not el sewhere classified [R16.1] Start: 05-23-2022 End: 05-23-2022 Visit (SP) Office Dexter Wong DO Work Phone: Hematology/Oncology Comment on above: Splenomegaly, not el sewhere classified (Primary Dx); Thrombocytopenia (HCC); Neutropenia, unspecified type (HCC); Hepatic steatosis; Lower abdominal pain; Lupus anticoagulant disorder (HCC) Start: 04-10-2022 Telephone encounter Dexter nolan DO Work Phone: Hematology/Oncology Comment on above: Follow Up Start: 03-30-2022 Refill Julián Urias MD Work Phone: [facility] Comment on above: Refill Request Start: 03-20-2022 Refill Julián Urias MD Work Phone: [facility] [place] Comment on above: Refill Request Start: 03-05-2022 Refill Julián Urias MD Work Phone: [facility] Comment on above: Refill Request Start: 02-20-2022 Refill Julián Urias MD Work Phone: [facility] Comment on above: Refill Request Start: 01-29-2022 Telephone encounter Analy hope APRN.CNP Work Phone: Urology Comment on above: Surgical Followup Start: 01-01-2022 End: 01-01-2022 PAT Pacc [facility] 1 Work Phone: Pre Anesthesia Comment on above: Pre-operative examin ation (Primary Dx); History of pulmonary embolism; Polycythemia, secondary; Left hemiparesis (HCC); MARC (obstructive sleep apnea); Chronic interstitial cystitis; Chromosomal abnormality; Thrombocytopenia (HCC); Splenomegaly; Primary testicular hypogonadism; Personal history of DVT (deep vein thrombosis); Obesity (BMI 30-39.9); Lupus anticoagulant disorder (HCC); Hypothyroidism, unspecified type; Hepatic steatosis; Diabetes mellitus type II (HCC); Secondary esophageal varices without bleeding (HCC) Pre-op AC instructio ns Start: 01-01-2022 End: 01-01-2022 Preprocedural examination done Pac [place] 1 Work Phone: Pre Anesthesia Start: 12-25-2021 Telephone encounter Dexter nolan DO Work Phone: Hematology/Oncology Comment on above: Results (CBC) Start: 12-25-2021 End: 12-25-2021 Patient encounter procedure Julián Urias MD Work Phone: [facility] Comment on above: Diabetes mellitus ty pe II (HCC) (Primary Dx); MARC (obstructive sleep apnea); Hypothyroidism, unspecified type; Cirrhosis, nonalcoholic (HCC); Vitamin D deficiency; Obesity (BMI 30-39.9); Need for influenza vaccination; Need for COVID-19 vaccine; Need for vaccination; Herpes zoster without complication; Primary insomnia Start: 12-11-2021 ambulatory Julián Urias MD Work Phone: [facility] Comment on above: Appt 12/18/21 Start: 11-28-2021 ambulatory Rainer Solares MD Work Phone: Urology Start: 11-27-2021 ambulatory Rainer Solares MD Work Phone: Urology Start: 11-27-2021 End: 11-27-2021 Patient encounter procedure Rainer Solares MD Work Phone: Urology Comment on above: Vesicocutaneous fist roxana (Primary Dx); History of suprapubic catheter; Pyuria Start: 10-23-2021 End: 10-23-2021 Patient encounter procedure Julián Urias MD Work Phone: [facility] Comment on above: Herpes zoster withou t complication (Primary Dx) Start: 09-25-2021 Telephone encounter Paul Urias MD Work Phone: [facility] Comment on above: Fax requested Start: 09-23-2021 Telephone encounter Renny Yin MD Work Phone: Neurology Comment on above: Forms Start: 09-19-2021 Refill Dexter Rolon Work Phone: Hematology/Oncology Comment on above: Refill Request Start: 09-13-2021 Telephone encounter Paul Urias MD Work Phone: [facility] Comment on above: Results Start: 09-06-2021 Telephone encounter Renny Yin MD Work Phone: Neurology Comment on above: Patient Update Start: 09-06-2021 End: 09-06-2021 Patient encounter procedure Julián Urias MD Work Phone: [facility] Comment on above: Diabetes mellitus ty pe II (HCC) (Primary Dx); MARC (obstructive sleep apnea); Obesity (BMI 30-39.9); Esophageal varices without bleeding, unspecified esophageal varices type (HCC); Hypothyroidism, unspecified type; Screening for hyperlipidemia Start: 09-04-2021 End: 09-04-[address] 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 Start: 08-23-2021 ambulatory Juan Amador MD Work Phone: Urology Start: 06-10-2022 Telephone encounter Shanthi contreras RN Work Phone: Urology Comment on above: Returning Patient's Call (SPT removal) Start: 08-06-2021 End: 08-06-2021 Nursing evaluation of patient and report Shanthi Grace RN Work Phone: Urology Comment on above: Urinary retention (P rimary Dx); 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 Start: 08-06-2021 End: 08-06-2021 Subsequent hospital visit by physician [facility] (I-Stat) Radiology Comment on above: Postprocedural bulbo us urethral stricture [N99.111] Start: 07-26-2021 Telephone encounter Rainer apple MD Work Phone: Urology Comment on above: Patient Question Start: 07-23-2021 Telephone encounter Analy Wasserman rrigon HOTHOUSE WORKER.BUSINESS OPERATIONS COORDINATOR Work Phone: Urology Comment on above: Surgical Followup Start: 07-22-2021 Telephone encounter [place] colon PA-C Work Phone: Urology Comment on above: Orders Start: 07-16-2021 Orders Only Rainer Solares MD Work Phone: Urology Comment on above: 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 (Primary Dx); Postprocedural bulbous urethral stricture Start: 07-15-2021 End: 07-15-2021 Orders Only Juan Amador MD Work Phone: Urology Comment on above: Preoperative cardiov ascular examination (Primary Dx); MARC (obstructive sleep apnea); Lupus anticoagulant disorder (HCC); Hepatic steatosis; Diabetes mellitus type II (HCC) Start: 07-15-2021 End: 07-15-2021 Patient encounter status Quentin Chavez MD Work Phone: Cardiology Start: 07-09-2021 Orders Only Analy Ledesma on HOTHOUSE WORKER.BUSINESS OPERATIONS COORDINATOR Work Phone: Urology Comment on above: Postprocedural male urethral stricture (Primary Dx) Start: 07-08-2021 Telephone encounter Renny Yin MD Work Phone: Neurology Comment on above: Report On Sleep Stud y (Where was recent sleep study) Sleep study order fa xed Start: 07-08-2021 End: 07-08-2021 Patient encounter procedure Renny Yin MD Work Phone: Neurology Comment on above: Obstructive sleep ap sim (adult) (pediatric) (Primary Dx); Insomnia, unspecified type Start: 07-05-2021 Orders Only Analy Ledesma on HOTHOUSE WORKER.BUSINESS OPERATIONS COORDINATOR Work Phone: Urology Comment on above: Pre-operative cardio vascular examination (Primary Dx); Postprocedural male urethral stricture Start: 07-05-2021 Patient encounter status Clau Monroy HOTHOUSE WORKER.BUSINESS OPERATIONS COORDINATOR Work Phone: Urology Start: 07-03-2021 End: 07-03-2021 PAT Pac [facility] Work Phone: Pre Anesthesia Comment on above: Pre-operative examin ation (Primary Dx); 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; Personal history of DVT (deep vein thrombosis); Splenomegaly; Thrombocytopenia (HCC); History of pulmonary embolism; Polycythemia, secondary; Left hemiparesis (HCC); MARC (obstructive sleep apnea); Chromosomal abnormality; Chronic interstitial cystitis; Bronchitis, mucopurulent recurrent (HCC); Diabetes mellitus type II (HCC); Hepatic steatosis; Hypothyroidism, unspecified type; Lupus anticoagulant disorder (HCC); Primary testicular hypogonadism; Obesity (BMI 30-39.9) Start: 07-03-2021 End: 07-03-2021 Preprocedural examination done Pac [place] 1 Work Phone: Pre Anesthesia Start: 06-18-2021 ambulatory Rainer Solares MD Work Phone: Urology Start: 06-18-2021 Telephone encounter Rainer apple MD Work Phone: Urology Comment on above: Lawn Mower - O ther Orders Start: 06-13-[address] [facility] Dexter Wong DO Work Phone: Hematology/Oncology Comment on above: Ok surgery. Start: 06-13-2021 ambulatory Dexter Rolon Work Phone: [facility] Start: 06-12-2021 End: 06-12-2021 Anticoagulant drug monitoring Kerrie Smith DO Work Phone: Vascular Medicine Comment on above: Antiphospholipid ant ibody syndrome (HCC) (Primary Dx); Personal history of DVT (deep vein thrombosis); Personal history of PE (pulmonary embolism); On continuous oral anticoagulation; Thrombocytopenia (HCC); Splenomegaly; Secondary esophageal varices without bleeding (HCC); Preoperative examination Start: 06-12-2021 End: 06-12-2021 Preprocedural examination done Kerrie Smith DO Work Phone: Vascular Medicine Start: 06-12-2021 End: 06-12-2021 Telemedicine consultation with patient Kerrie Smith DO Work Phone: [facility] Start: 06-04-2021 Telephone encounter Dexter nolan DO Work Phone: Hematology/Oncology Comment on above: Orders Start: 05-20-2021 End: 05-20-[address] Paul Urias Work Phone: [facility] Start: 03-11-2019 Preprocedural examination done Dexter Wong DO Work Phone: [facility] Work Phone: Procedures Date Procedure Procedure Detail Performing Clinician Start: 08-16-[address] Aileen Urias MD Work Phone: Start: 08-16-[address] Paul Urias MD Work Phone: Start: 08-16-2024 End: 08-16-2024 Microbial culture, body fluid Dr. Jeovanny Urias MD Work Phone: Start: 08-16-2024 Blood count leukocyte wbc automated Dr. Paul Urias MD Work Phone: Start: 08-16-[address] Paul Urias MD Work Phone: Start: 08-16-[address] Nikos Urias MD Work Phone: Start: 08-16-[address] Paul Urias MD Work Phone: Start: 08-15-2024 Vfmps-4-Lroasuewytl measurement Dr. Chika Urias MD Work Phone: Comment on above: [facility] Electrochemiluminescen ce Immunoassay(ECLIA)Values obtained with different assay methods or kits cannotbe used interchangeably. Results cannot be interpreted asabsolute evidence of the presence or absence of malignantdisease.This test is not interpretable in females. Start: 08-15-2024 Hepatitis A virus antibody, total measurement Dr. Paul Urias MD Work Phone: Comment on above: Comment: The HAV total antibody assay de tects both IgG andIgM but does not differentiate between them. A negativeresult suggests susceptibility to infection. A positiveresult could be due to vaccination, previously resolvedinfection or active infection. Testing for HAV IgM shouldbe performed if active HAV infection is suspected. [facility]corpoffers profiles that will automatically reflex positive HAVtotal antibody results to IgM (e.g., panel #[id number] HAVAntibody w/ Rfx).Performed at: [address] [id number] Director: Keegan García PhD, Phone: [phone] Start: 08-15-2024 Hepatitis C antibody measurement Dr. Michelle Urias MD Work Phone: Comment on above: Reactive: Presumptive evidence of antibo dies to HCV. Follow CDC recommendations for supplemental testing.Non-Reactive: Antibodies to HCV were not detected; does not exclude the possibility of exposure to HCVReactive Results are presumptive evidence of antibodies to HCV. Follow CDC recommendations for supplemental testing.Order confirmation testing: HCV Quant by PCR testing - HCVPCR #[id number] Non Reactive: < 0.8 Equivocal: >/= 0.8 to < 1.0 Reactive: >/= 1.0The CDC requires that a reactive/equivocal HCV antibody result be sent out for confirmation. HCV Quant by PCR testing. Start: 08-11-2024 Ct abdomen & pelvis w/contrast material Marli Podlogar HOTHOUSE WORKER.BUSINESS OPERATIONS COORDINATOR Work Phone: Start: 06-20-2024 Radiologic exam chest 2 views Krystin norris HOTHOUSE WORKER.LATRINE CLEANER Work Phone: Start: 02-11-2023 INFLUENZA VACCINE, AGE 6 MO - 64 YR, QUADRIVALENT (AFLURIA, FLULAVAL, FLUZONE) Marli Podlogar HOTHOUSE WORKER.BUSINESS OPERATIONS COORDINATOR Work Phone: Start: 09-11-2022 Radiologic exam chest 2 views Zackary Julio cohen HOTHOUSE WORKER.BUSINESS OPERATIONS COORDINATOR Work Phone: Start: 06-05-2022 Ct abdomen & pelvis w/contrast material Dexter Wong DO Work Phone: Start: 12-25-2021 INFLUENZA VACCINE QUADRIVALENT 6 MO - 64 YRS IM Julián Urias MD Work Phone: Start: 12-25-2021 [facility] COVID-19 BIVALENT BOOSTER VACCINE, AGE 12+ YR Julián Urias MD Work Phone: Start: 11-27-2021 Urnls dip stick/tablet reagent auto microscopy Bulk Order Provider Start: 08-23-2021 Culture bacterial quanttative colony count urine Juan Amador MD Work Phone: Start: 08-06-2021 Urethrocystography voiding rs&i Rainer gibbs MD Work Phone: Start: 03-13-2021 Colonoscopy Dexter Wong DO Work Phone: Plan of Treatment Date Care Activity Detail Author Start: 03-18-2028 Prostate specific antigen measurement Prostate Cancer Screening Discussion [facility] Start: 02-18-2028 Urine microalbumin profile [facility] Start: 03-13-2026 Colonoscopy COLONOSCOPY [facility] Start: 03-13-2026 COLORECTAL CANCER SCREENING COLORECTAL CANCER SCREENING [facility] Start: 03-13-2026 Screening for malignant neoplasm of colon [facility] Start: 08-11-2025 Screening for malignant neoplasm of colon Fecal Occult Blood [facility] Start: 08-10-2025 Annual PCP Team Chronic Disease Visit Annual PCP Team Chronic Disease Visit [facility] Start: 05-04-2025 Glaucoma screening Dilated Retinal Exam [facility] Start: 04-06-2025 Annual PCP Team Chronic Disease Visit Annual PCP Team Chronic Disease Visit [facility] Start: 04-06-2025 Hepatitis B surface antibody level LDL Cholesterol [facility] Start: 01-18-2025 End: 01-18-2025 ambulatory [place] [facility] Comment on above: cbc* CBC/OV* Start: 01-04-2025 End: 01-04-2025 ambulatory 01/04/2025 9:30 AM EST Results Only [place] [facility] [address] [place] [address] cbc* [place] [facility] Comment on above: cbc* Start: 12-21-2024 End: 12-21-2024 ambulatory 12/21/2024 9:30 AM EDT Results Only [place] [facility] [address] [place] [address] cbc* [place] [facility] Comment on above: cbc* Start: 12-07-2024 End: 12-07-2024 ambulatory 12/07/2024 9:30 AM EDT Results Only [place] [facility] [address] [place] [address] cbc* [place] [facility] Comment on above: cbc* Start: 11-23-2024 End: 11-23-2024 ambulatory 11/23/2024 9:30 AM EDT Results Only [place] [facility] [address] [place] [address] cbc* [place] [facility] Comment on above: cbc* Start: 11-21-2024 End: 11-21-2024 ambulatory 11/21/2024 1:30 PM EDT [facility] [address] [address] Janet Ortiz MD [address] [place] [address] Decompensated cirrhosis (HCC) [K72.90, K74.60] Gastroenterology Comment on above: Decompensated cirrhosis (HCC) [K72.90, K 74.60] Start: 11-09-2024 End: 11-09-2024 ambulatory 11/09/2024 9:30 AM EDT Results Only [place] [address] [facility] [address] [place] [address] cbc* [place] [facility] Comment on above: cbc* Start: 10-31-2024 Influenza vaccination Influenza Vaccine (#1) [facility] Start: 10-24-2024 End: 01-23-2025 ANTI PLT FACTOR 4 AB [facility] Comment on above: Expected: 10/24/2024, Expires: Start: 10-24-2024 End: 01-23-2025 Ferritin [Mass/volume] in Serum or Plasma [facility] Comment on above: Expected: 10/24/2024, Expires: Start: 10-24-2024 End: 01-23-2025 Iron and Iron binding capacity panel - Serum or Plasma [facility] Work Phone: Comment on above: Expected: 10/24/2024, Expires: Start: 10-24-2024 End: 01-23-[address] [facility] Comment on above: Expected: 10/24/2024, Expires: Start: 10-24-2024 End: 10-24-2024 Follow-up encounter 10/24/2024 10:50 AM EDT Visit (SP) Office Hematology/Oncology [address] [place] [address] Dexter Wong DO [address] [place] [id number] FOLLOW UP ON TEST RESULTS - REQUEST Hematology/Oncology Comment on above: FOLLOW UP ON TEST RESULTS - [facility] REQUEST Start: 10-05-2024 End: 10-05-2024 Patient encounter procedure [facility] [place] Comment on above: 6 month follow up Start: 09-10-2024 Hepatitis B screening Urine Albumin:Creatinine Ratio [facility] Start: 09-09-2024 Annual PCP Team Chronic Disease Visit Annual PCP Team Chronic Disease Visit [facility] Start: 09-09-2024 Covid-19 Vaccine ( season) Covid-19 Vaccine () [facility] Comment on above: Postponed from 10/31/2022 (Declined at t his time) Start: 09-09-2024 Diabetic foot examination Diabetic Foot Exam [facility] Start: 09-09-2024 Hepatitis A Vaccine (2 of 3 - Hep A Twinrix risk 3-dose series) Hepatitis A Vaccine (2 of 3 - Hep A Twinrix risk 3-dose series) [facility] Comment on above: Postponed from 07/23/2022 (Declined at t his time) Start: 09-09-2024 Hepatitis B Vaccine (2 of 3 - Hep B Twinrix 3-dose series) Hepatitis B Vaccine (2 of 3 - Hep B Twinrix 3-dose series) [facility] Comment on above: Postponed from 07/23/2022 (Declined at t his time) Start: 09-09-2024 Shingrix Vaccine (1 of 2) Shingrix Vaccine (1 of 2) [facility] Comment on above: Postponed from 06/16/2019 (Declined at t his time) Start: 09-06-2024 End: 09-06-2024 Patient encounter procedure 09/06/2024 9:00 AM EDT Office Visit [facility]mology [address] [place] [address] Aracely Tinoco, OD [address] [place] [address] Diagnostics[facility] [address] [place] [address] Diabetes mellitus type II (HCC) [E11.9] Ophthalmology Comment on above: Diabetes mellitus type II (HCC) [E11.9] Start: 08-16-2024 Abdom paracentesis dx/ther w/imaging guidance ABD PARACENTESIS W/IMAGING [facility] Start: 08-16-2024 Anaerobic Culture Anaerobic Culture [facility] Start: 08-16-2024 Anaerobic microbial culture Anaerobic Culture [facility] Start: 08-16-2024 Body Fluid Culture Body Fluid Culture [facility] Start: 08-16-2024 Iv infusion therapy prophylaxis/dx ea hour THER/PROPH/DIAG IV INF ADDON [facility] Start: 08-16-2024 Iv infusion therapy/prophylaxis /dx 1st to 1 hr THER/PROPH/DIAG IV INF INIT [facility] Start: 08-16-2024 Microscopic observation [Identifier] in Unspecified specimen by Gram stain [facility] Start: 08-16-2024 End: 08-16-2024 Microbial culture, body fluid [facility] Start: 08-15-2024 Fvwap-1-yjtivlksirp.tumor marker [Units/volume] in Serum or Plasma [facility] Start: 08-15-2024 Hepatitis A virus Ab [Presence] in Serum [facility] Start: 08-15-2024 Hepatitis B virus core Ab [Presence] in Serum [facility] Start: 08-15-2024 End: 08-15-2024 Follow-up encounter 08/15/2024 10:30 AM EDT Visit (SP) Office Hematology/Oncology [address] [place] [address] Dexter Wong DO [address] [place] [address] FOLLOW UP ON TEST RESULTS - REQUEST Hematology/Oncology Comment on above: FOLLOW UP ON TEST RESULTS - REQUEST Start: 08-11-2024 End: 08-11-2024 Patient encounter procedure Cat Scan Comment on above: Cirrhosis, nonalcoholic (HCC) [K74.60]; Splenomegaly [R16.1]; Abdominal swelling, generalized [R19.07] Start: 08-10-2024 End: 11-09-2024 CBC W Auto Differential panel - Blood COMPLETE BLOOD COUNT AND DIFFERENTIAL Lab Routine Cirrhosis, nonalcoholic (HCC) Splenomegaly Abdominal swelling, generalized Expected: 08/10/2024, Expires: 11/09/2024 [facility] Comment on above: Expected: 08/10/2024, Expires: Start: 08-10-2024 End: 11-09-2024 Comprehensive metabolic 2000 panel - Serum or Plasma COMPREHENSIVE METABOLIC PANEL Lab STAT Cirrhosis, nonalcoholic (HCC) Splenomegaly Abdominal swelling, generalized Expected: 08/10/2024, Expires: 11/09/2024 [facility] Comment on above: Expected: 08/10/2024, Expires: Start: 03-18-2024 Hepatitis B surface antibody level LDL Cholesterol [facility] Start: 03-16-2024 End: 03-16-2024 Patient encounter procedure 03/16/2024 9:00 AM EST Office Visit [facility] [place] [address] [place], [place] [id number] PodlogarMarli APRN.BUSINESS OPERATIONS COORDINATOR [address] [place] [address] 6 month follow up [facility] [place] Comment on above: 6 month follow up Start: 03-13-2024 Hemoglobin A1c measurement HbA1C [facility] Start: 03-02-2024 Medicare Advantage Annual Wellness Visit Medicare Advantage Annual Wellness Visit [facility] Start: 02-12-2024 Annual PCP Team Chronic Disease Visit Annual PCP Team Chronic Disease Visit [facility] Start: 11-01-2023 Covid-19 Vaccine ( season) Covid-19 Vaccine ( season) [facility] Start: 11-01-2023 Covid-19 Vaccine ( season) Covid-19 Vaccine ( season) [facility] Start: 11-01-2023 [facility] Start: 09-16-2023 Hemoglobin A1c measurement HbA1C [facility] Start: 09-10-2023 End: 12-10-2023 CBC W Auto Differential panel - Blood COMPLETE BLOOD COUNT AND DIFFERENTIAL Lab Routine Diabetes mellitus type II (HCC) Expected: 09/10/2023, Expires: 12/10/2023 [facility] Work Phone: Comment on above: Expected: 09/10/2023, Expires: Start: 09-10-2023 End: 10-10-2024 Comprehensive metabolic 2000 panel - Serum or Plasma COMPREHENSIVE METABOLIC PANEL Lab Routine Diabetes mellitus type II (HCC) Expected: 09/10/2023, Expires: 12/10/2023 [facility] Comment on above: Expected: 09/10/2023, Expires: Start: 09-10-2023 End: 12-10-2023 Hemoglobin A1c in Blood HEMOGLOBIN A1C Lab Routine Diabetes mellitus type II (HCC) Expected: 09/10/2023, Expires: 12/10/2023 [facility] Comment on above: Expected: 09/10/2023, Expires: Start: 09-10-2023 End: 12-10-2023 Microalbumin/Creatinine [Mass Ratio] in Urine ALBUMIN/CREATININE RATIO, URINE Lab Routine Diabetes mellitus type II (HCC) Expected: 09/10/2023, Expires: 12/10/2023 [facility] Comment on above: Expected: 09/10/2023, Expires: Start: 09-10-2023 End: 09-10-2023 Patient encounter procedure 09/10/2023 9:00 AM EDT Office Visit Family [facility] [place] [address] [place], [place] [phone] Julián [place] MD [address] [place], [place] [id number] yearly physical (For Med Adherence -Pt is due for New Prescriptions) [facility] [place] Comment on above: yearly physical (For Med Adherence -Pt i s due for New Prescriptions) Start: 07-17-2023 Hepatitis B screening URINE ALBUMIN:CREATININE RATIO [facility] Start: 06-26-2023 3 comp foot exam completed DIABETIC FOOT EXAM [facility] Start: 06-26-2023 ANNUAL PCP TEAM CHRONIC DISEASE VISIT ANNUAL PCP TEAM CHRONIC DISEASE VISIT [facility] Start: 06-26-2023 Diabetic foot examination Diabetic Foot Exam [facility] Start: 02-12-2023 Hemoglobin A1c measurement HbA1C [facility] Start: 02-12-2023 Hemoglobin A1c/Hemoglobin.total in Blood HBA1C [facility] Start: 02-11-2023 End: 05-13-2023 CBC W Auto Differential panel - Blood CBC + DIFF Lab Routine Splenomegaly Expected: 02/11/2023, Expires: 05/13/2023 [facility] Work Phone: Comment on above: Expected: 02/11/2023, Expires: Start: 02-11-2023 End: 05-13-2023 Comprehensive metabolic 2000 panel - Serum or Plasma COMP METABOLIC PANEL Lab Routine Cirrhosis, nonalcoholic (HCC) Expected: 02/11/2023, Expires: 05/13/2023 [facility] Work Phone: Comment on above: Expected: 02/11/2023, Expires: 4 Start: 02-11-2023 End: 05-13-2023 Hemoglobin A1c in Blood HGB A1C Lab Routine Diabetes mellitus type II (HCC) Expected: 02/11/2023, Expires: 05/13/2023 [facility] Work Phone: Comment on above: Expected: 02/11/2023, Expires: 4 Start: 02-11-2023 End: 05-13-2023 Lipid 1996 panel - Serum or Plasma LIPID PANEL BASIC Lab Routine Expected: 02/11/2023, Expires: 05/13/2023 [facility] Work Phone: Comment on above: Expected: 02/11/2023, Expires: 4 Start: 02-11-2023 End: 05-13-2023 Thyrotropin [Units/volume] in Serum or Plasma TSH BLD Lab Routine Hypothyroidism, unspecified type Expected: 02/11/2023, Expires: 05/13/2023 [facility] Work Phone: Comment on above: Expected: 02/11/2023, Expires: 4 Start: 12-25-2022 ANNUAL PCP TEAM CHRONIC DISEASE VISIT ANNUAL PCP TEAM CHRONIC DISEASE VISIT [facility] Start: 12-25-2022 HEPATITIS A (1 of 2 - Risk 2-dose series) HEPATITIS A (1 of 2 - Risk 2-dose series) [facility] Comment on above: Postponed from 1970 (Declined at t his time) Start: 12-25-2022 HEPATITIS B (1 of 3 - 3-dose series) HEPATITIS B (1 of 3 - 3-dose series) [facility] Comment on above: Postponed from 1969 (Declined at t his time) Start: 12-22-2022 Hepatitis a & b vaccine hepa-hepb adult im HEP A-HEP B VACCINE (TWINRIX) Immunization/Injection Routine Need for vaccination Expected: 12/22/2022 (Approximate) [facility] Work Phone: Comment on above: Expected: 12/22/2022 (Approximate) Start: 10-31-2022 Covid-19 Vaccine () Covid-19 Vaccine () [facility] Start: 10-31-2022 Influenza vaccination [facility] Start: 10-23-2022 ANNUAL PCP TEAM CHRONIC DISEASE VISIT ANNUAL PCP TEAM CHRONIC DISEASE VISIT [facility] Start: 09-06-2022 ANNUAL PCP TEAM CHRONIC DISEASE VISIT ANNUAL PCP TEAM CHRONIC DISEASE VISIT [facility] Start: 09-06-2022 Hepatitis B surface antibody level LDL CHOLESTEROL [facility] Start: 07-25-2022 Hepatitis a & b vaccine hepa-hepb adult im HEP A-HEP B VACCINE (TWINRIX) Immunization/Injection Routine Need for vaccination Expected: 07/25/2022 (Approximate) [facility] Work Phone: Comment on above: Expected: 07/25/2022 (Approximate) Start: 07-23-2022 End: 09-22-2022 Alpha 1 antitrypsin [Mass/volume] in Serum or Plasma [id number] BL Lab Routine Splenomegaly Thrombocytopenia (HCC) Portal hypertension with esophageal varices (HCC) Cirrhosis of liver without ascites, unspecified hepatic cirrhosis type (HCC) Expected: 07/23/2022, Expires: 09/22/2022 [facility] Work Phone: Comment on above: Expected: 07/23/2022, Expires: Start: 07-23-2022 End: 09-22-2022 DAMIR BY IFA SCREEN DAMIR BY IFA SCREEN Lab Routine Splenomegaly Thrombocytopenia (HCC) Portal hypertension with esophageal varices (HCC) Cirrhosis of liver without ascites, unspecified hepatic cirrhosis type (HCC) Expected: 07/23/2022, Expires: 09/22/2022 [facility] Work Phone: Comment on above: Expected: 07/23/2022, Expires: Start: 07-23-2022 End: 09-22-2022 Basic metabolic 2000 panel - Serum or Plasma BASIC METABOLIC PNL Lab Routine Splenomegaly Thrombocytopenia (HCC) Portal hypertension with esophageal varices (HCC) Cirrhosis of liver without ascites, unspecified hepatic cirrhosis type (HCC) Expected: 07/23/2022, Expires: 09/22/2022 [facility] Work Phone: Comment on above: Expected: 07/23/2022, Expires: Start: 07-23-2022 End: 09-22-2022 CBC W Auto Differential panel - Blood CBC + DIFF Lab Routine Splenomegaly Thrombocytopenia (HCC) Portal hypertension with esophageal varices (HCC) Cirrhosis of liver without ascites, unspecified hepatic cirrhosis type (HCC) Expected: 07/23/2022, Expires: 09/22/2022 [facility] Work Phone: Comment on above: Expected: 07/23/2022, Expires: Start: 07-23-2022 End: 09-22-2022 Ceruloplasmin [Mass/volume] in Serum or Plasma CERULOPLASMIN BLD Lab Routine Splenomegaly Thrombocytopenia (HCC) Portal hypertension with esophageal varices (HCC) Cirrhosis of liver without ascites, unspecified hepatic cirrhosis type (HCC) Expected: 07/23/2022, Expires: 09/22/2022 [facility] Work Phone: Comment on above: Expected: 07/23/2022, Expires: 3 Start: 07-23-2022 End: 09-22-2022 Ferritin [Mass/volume] in Serum or Plasma FERRITIN BLD Lab Routine Splenomegaly Thrombocytopenia (HCC) Portal hypertension with esophageal varices (HCC) Cirrhosis of liver without ascites, unspecified hepatic cirrhosis type (HCC) Expected: 07/23/2022, Expires: 09/22/2022 [facility] Work Phone: Comment on above: Expected: 07/23/2022, Expires: 3 Start: 07-23-2022 End: 09-22-2022 Gamma glutamyl transferase [Enzymatic activity/volume] in Serum or Plasma GGT BLD Lab Routine Splenomegaly Thrombocytopenia (HCC) Portal hypertension with esophageal varices (HCC) Cirrhosis of liver without ascites, unspecified hepatic cirrhosis type (HCC) Expected: 07/23/2022, Expires: 09/22/2022 [facility] Work Phone: Comment on above: Expected: 07/23/2022, Expires: 3 Start: 07-23-2022 End: 09-22-2022 Hepatic function 2000 panel - Serum or Plasma HEPATIC FUNCTION PNL Lab Routine Splenomegaly Thrombocytopenia (HCC) Portal hypertension with esophageal varices (HCC) Cirrhosis of liver without ascites, unspecified hepatic cirrhosis type (HCC) Expected: 07/23/2022, Expires: 09/22/2022 [facility] Work Phone: Comment on above: Expected: 07/23/2022, Expires: 3 Start: 07-23-2022 HEPATITIS A (2 of 3 - Hep A Twinrix risk 3-dose series) HEPATITIS A (2 of 3 - Hep A Twinrix risk 3-dose series) [facility] Start: 07-23-2022 End: 09-22-2022 HEPATITIS A ANTIBODY, IGG HEPATITIS A ANTIBODY, IGG Lab Routine Splenomegaly Thrombocytopenia (HCC) Portal hypertension with esophageal varices (HCC) Cirrhosis of liver without ascites, unspecified hepatic cirrhosis type (HCC) Expected: 07/23/2022, Expires: 09/22/2022 [facility] Work Phone: Comment on above: Expected: 07/23/2022, Expires: 3 Start: 07-23-2022 Hepatitis A Vaccine (2 of 3 - Hep A Twinrix risk 3-dose series) Hepatitis A Vaccine (2 of 3 - Hep A Twinrix risk 3-dose series) [facility] Start: 07-23-2022 HEPATITIS B (2 of 3 - Hep B Twinrix 3-dose series) HEPATITIS B (2 of 3 - Hep B Twinrix 3-dose series) [facility] Start: 07-23-2022 Hepatitis B Vaccine (2 of 3 - Hep B Twinrix 3-dose series) Hepatitis B Vaccine (2 of 3 - Hep B Twinrix 3-dose series) [facility] Start: 07-23-2022 End: 09-22-2022 Hepatitis B virus surface Ag [Presence] in Serum HEP B SURF AG SCRN Lab Routine Splenomegaly Thrombocytopenia (HCC) Portal hypertension with esophageal varices (HCC) Cirrhosis of liver without ascites, unspecified hepatic cirrhosis type (HCC) Expected: 07/23/2022, Expires: 09/22/2022 [facility] Work Phone: Comment on above: Expected: 07/23/2022, Expires: 3 Start: 07-23-2022 End: 09-22-2022 Hepatitis C virus Ab [Presence] in Serum HEP C AB IA W/CONF SCRN Lab Routine Splenomegaly Thrombocytopenia (HCC) Portal hypertension with esophageal varices (HCC) Cirrhosis of liver without ascites, unspecified hepatic cirrhosis type (HCC) Expected: 07/23/2022, Expires: 09/22/2022 [facility] Work Phone: Comment on above: Expected: 07/23/2022, Expires: 3 Start: 07-23-2022 End: 09-22-2022 IgA [Mass/volume] in Serum or Plasma IGA BLD Lab Routine Splenomegaly Thrombocytopenia (HCC) Portal hypertension with esophageal varices (HCC) Cirrhosis of liver without ascites, unspecified hepatic cirrhosis type (HCC) Expected: 07/23/2022, Expires: 09/22/2022 [facility] Work Phone: Comment on above: Expected: 07/23/2022, Expires: 3 Start: 07-23-2022 End: 09-22-2022 IGG SUBCLASS 1,2,3,4 IGG SUBCLASS 1,2,3,4 Lab Routine Splenomegaly Thrombocytopenia (HCC) Portal hypertension with esophageal varices (HCC) Cirrhosis of liver without ascites, unspecified hepatic cirrhosis type (HCC) Expected: 07/23/2022, Expires: 09/22/2022 [facility] Work Phone: Comment on above: Expected: 07/23/2022, Expires: Start: 07-23-2022 End: 09-22-2022 Iron and Iron binding capacity panel - Serum or Plasma IRON + TIBC Lab Routine Splenomegaly Thrombocytopenia (HCC) Portal hypertension with esophageal varices (HCC) Cirrhosis of liver without ascites, unspecified hepatic cirrhosis type (HCC) Expected: 07/23/2022, Expires: 09/22/2022 [facility] Work Phone: Comment on above: Expected: 07/23/2022, Expires: Start: 07-23-2022 End: 09-22-2022 PT panel - Platelet poor plasma by Coagulation assay PROTHROMBIN TIME/PT Lab Routine Splenomegaly Thrombocytopenia (HCC) Portal hypertension with esophageal varices (HCC) Cirrhosis of liver without ascites, unspecified hepatic cirrhosis type (HCC) Expected: 07/23/2022, Expires: 09/22/2022 [facility] Work Phone: Comment on above: Expected: 07/23/2022, Expires: Start: 07-23-2022 End: 09-22-2022 Smooth muscle Ab [Presence] in Serum SMOOTH MUSCLE AB SCR Lab Routine Splenomegaly Thrombocytopenia (HCC) Portal hypertension with esophageal varices (HCC) Cirrhosis of liver without ascites, unspecified hepatic cirrhosis type (HCC) Expected: 07/23/2022, Expires: 09/22/2022 [facility] Work Phone: Comment on above: Expected: 07/23/2022, Expires: Start: 07-23-2022 End: 09-22-2022 Tissue transglutaminase Ab panel - Serum TRANSGLUTAMINASE ABS Lab Routine Splenomegaly Thrombocytopenia (HCC) Portal hypertension with esophageal varices (HCC) Cirrhosis of liver without ascites, unspecified hepatic cirrhosis type (HCC) Expected: 07/23/2022, Expires: 09/22/2022 [facility] Work Phone: Comment on above: Expected: 07/23/2022, Expires: Start: 06-25-2022 End: 08-25-2022 ALBUMIN/CREAT RATIO RND UR ALBUMIN/CREAT RATIO RND UR Lab Routine Diabetes mellitus type II (HCC) Expected: 06/25/2022, Expires: 08/25/2022 [facility] Work Phone: Comment on above: Expected: 06/25/2022, Expires: 3 Start: 06-25-2022 Hemoglobin A1c/Hemoglobin.total in Blood HBA1C [facility] Start: 04-03-2022 Glaucoma screening Dilated Retinal Exam [facility] Start: 04-03-2022 Hepatitis C antibody, confirmatory test DILATED RETINAL EXAM [facility] Start: 03-06-2022 3 comp foot exam completed DIABETIC FOOT EXAM [facility] Start: 03-06-2022 ANNUAL PCP TEAM CHRONIC DISEASE VISIT ANNUAL PCP TEAM CHRONIC DISEASE VISIT [facility] Start: 03-05-2022 Hepatitis B screening URINE ALBUMIN:CREATININE RATIO [facility] Start: 02-27-2022 End: 04-29-2022 Basic metabolic 2000 panel - Serum or Plasma BASIC METABOLIC PNL Lab Routine 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 Work Phone: Comment on above: Expected: 02/27/2022, Expires: 3 Start: 02-27-2022 End: 04-29-2022 CBC panel - Blood by Automated count CBC Lab Routine 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 Work Phone: Comment on above: Expected: 02/27/2022, Expires: 3 Start: 02-27-2022 End: 04-29-2022 URINE, PRESURGICAL STERILIZATION CULTURE URINE, PRESURGICAL STERILIZATION CULTURE Microbiology Routine 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 Work Phone: Comment on above: Expected: 02/27/2022, Expires: 3 Start: 01-02-2022 Hemoglobin A1c/Hemoglobin.total in Blood HBA1C [facility] Start: 01-01-2022 End: 03-03-2022 TYPE AND SCREEN,[address] [facility] Work Phone: Comment on above: Expected: 01/01/2022, Expires: 3 Start: 11-27-2021 End: 01-27-2022 Bacteria identified in Urine by Culture URINE CULTURE Microbiology Routine Pyuria Expected: 11/27/2021, Expires: 01/27/2022 [facility] Work Phone: Comment on above: Expected: 11/27/2021, Expires: 2 Start: 10-31-2021 Influenza vaccination INFLUENZA (#1) [facility] Start: 08-23-2021 End: 10-23-2021 Bacteria identified in Urine by Culture [facility] Work Phone: Comment on above: Expected: 08/23/2021, Expires: 2 Start: 08-13-2021 Hemoglobin A1c/Hemoglobin.total in Blood HBA1C [facility] Start: 08-09-2021 End: 10-09-2021 Bacteria identified in Urine by Culture URINE CULTURE Microbiology Routine Postprocedural male urethral stricture Expected: 08/09/2021, Expires: 10/09/2021 [facility] Work Phone: Comment on above: Expected: 08/09/2021, Expires: 2 Start: 07-31-2021 Hepatitis B surface antibody level LDL CHOLESTEROL [facility] Start: 07-18-2021 End: 09-17-2021 Bacteria identified in Urine by Culture URINE CULTURE Microbiology Routine Postprocedural male urethral stricture Expected: 07/18/2021, Expires: 09/17/2021 [facility] Work Phone: Comment on above: Expected: 07/18/2021, Expires: 2 Start: 07-18-2021 End: 09-17-2021 CBC panel - Blood by Automated count CBC Lab Routine Postprocedural male urethral stricture Expected: 07/18/2021, Expires: 09/17/2021 [facility] Work Phone: Comment on above: Expected: 07/18/2021, Expires: 2 Start: 07-18-2021 End: 06-18-2022 ECG COMPLETE ECG COMPLETE ECG Routine Postprocedural male urethral stricture Expected: 07/18/2021, Expires: 06/18/2022 [facility] Work Phone: Comment on above: Expected: 07/18/2021, Expires: 3 Start: 07-02-2021 End: 06-18-2022 SARS-CoV-2 (COVID-19) RNA [Presence] in Respiratory specimen by STEFFANIE with probe detection PRE-PROCEDURE & PRE-OPERATIVE COVID Microbiology Routine Postprocedural male urethral stricture Expected: 07/02/2021, Expires: 06/18/2022 [facility] Work Phone: Comment on above: Expected: 07/02/2021, Expires: 3 Start: 07-02-2021 End: 09-01-2021 TYPE AND SCREEN,[address] [facility] Work Phone: Comment on above: Expected: 07/02/2021, Expires: 2 Start: 05-19-2021 COVID-19 VACCINE (3 - Booster for Pfizer series) COVID-19 VACCINE (3 - Booster for Pfizer series) [facility] Start: 02-13-2021 COVID-19 VACCINE (3 - Booster for Pfizer series) COVID-19 VACCINE (3 - Booster for Pfizer series) [facility] Start: 06-16-2019 SHINGRIX VACCINE (1 of 2) SHINGRIX VACCINE (1 of 2) [facility] Start: 2014 COLOGUARD (FIT-DNA) COLOGUARD (FIT-DNA) [facility] Start: [address] COLONOGRAPHY [facility] Start: 2014 FECAL OCCULT BLOOD FECAL OCCULT BLOOD [facility] Start: 2014 Screening for malignant neoplasm of colon [facility] Start: 2014 SIGMOIDOSCOPY SIGMOIDOSCOPY [facility] Start: 03-02-2008 PNEUMOCOCCAL (2 - PCV) PNEUMOCOCCAL (2 - PCV) [facility] Start: 1988 HEPATITIS B (1 of 3 - Risk 3-dose series) HEPATITIS B (1 of 3 - Risk 3-dose series) [facility] Start: 06-16-1987 Anxiety Screening Anxiety Screening [facility] Start: 1970 HEPATITIS A (1 of 2 - Risk 2-dose series) HEPATITIS A (1 of 2 - Risk 2-dose series) [facility] Start: 1969 HEPATITIS B (1 of 3 - 3-dose series) HEPATITIS B (1 of 3 - 3-dose series) [facility] Albumin [Presence] i n Body fluid [facility] Amylase [Enzymatic activity/volume] in Body fluid [facility] Bacteria identified in Body fluid by Culture [facility] Bacteria identified in Unspecified specimen by Anaerobe culture [facility] Bacteria identified in Urine by Culture URINE CULTURE Microbiology Routine Postprocedural male urethral stricture 07/02/2021 10:[address] [facility] Work Phone: Basic metabolic 2008 panel with ionized calcium - Serum or Plasma [facility] Bilirubin.direct [Mass/volume] in Serum or Plasma [facility] Blood ammonia measurement [facility] End: 06-04-2022 CBC W Auto Differential panel - Blood CBC + DIFF Lab STAT Lupus anticoagulant disorder (HCC) Thrombocytopenia (HCC) Once per month for 12 Occurrences starting 06/04/2021 until 06/04/2022, [address] [facility] Work Phone: Comment on above: Once per month for 12 Occurrences starti ng 06/04/2021 until 06/04/2022, 1 completed CBC W Auto Different ial panel - Blood [facility] CBC W Auto Different ial panel - Blood [facility] Ceruloplasmin [Mass/volume] in Serum or Plasma [facility] Comprehensive metabo lic 2000 panel - Serum or Plasma [facility] Copper [Moles/volume ] in Serum or Plasma [facility] End: 06-22-2023 Ct abdomen & pelvis w/contrast material CT ABD/PEL W IVCON Radiology Routine Splenomegaly, not elsewhere classified Hepatic steatosis Thrombocytopenia (HCC) Lower abdominal pain 1 Occurrences starting 05/23/2022 until 06/22/2023 [facility] Work Phone: Comment on above: 1 Occurrences starting 05/23/2022 until 06/22/2023 End: 09-09-2025 CT Abdomen and Pelvis W contrast IV CT ABD/PEL W IVCON Radiology STAT Cirrhosis, nonalcoholic (HCC) Splenomegaly Abdominal swelling, generalized 1 Occurrences starting 08/10/2024 until 09/09/2025 [facility] Work Phone: Comment on above: 1 Occurrences starting 08/10/2024 until 09/09/2025 Cytology report of B paolo fluid Cyto stain [facility] Cytoplasmic ANCA Screen [facility] End: 06-24-2023 EGD DIAGNOSTIC EGD DIAGNOSTIC Endoscopy Routine Splenomegaly Thrombocytopenia (HCC) Portal hypertension with esophageal varices (HCC) Cirrhosis of liver without ascites, unspecified hepatic cirrhosis type (HCC) 1 Occurrences starting 06/23/2022 until 06/24/2023 [facility] Work Phone: Comment on above: 1 Occurrences starting 06/23/2022 until 06/24/2023 Ferritin [Mass/volum e] in Serum or Plasma [facility] Gamma glutamyl transferase measurement [facility] Hemoglobin A1c/Hemoglobin.total in Blood [facility] Hemoglobin.gastroint estin al.lower [Presence] in Stool by Immunoassay IMMUNOCHEMICAL FECAL OCCULT BLOOD TEST Lab Routine Dark stools Ordered: 08/10/2024 [facility] Comment on above: Ordered: 08/10/2024 Hepatitis A virus Ig M Ab [Presence] in Serum [facility] Immunoglobulin measurement [facility] Iron and Iron bindin g capacity panel - Serum or Plasma [facility] Lactate dehydrogenas e measurement [facility] Lipid 1996 panel - S esteban or Plasma [facility] Liver stiffness by US.transient elastography [facility] Mitochondria Ab [Presence] in Serum [facility] End: 08-07-2022 PAP TITRATION PSG (CPAP, BIPAP, ASV) PAP TITRATION PSG (CPAP, BIPAP, ASV) Procedures Routine Obstructive sleep apnea (adult) (pediatric) 1 Occurrences starting 07/08/2021 until 08/07/2022 [facility] Work Phone: Comment on above: 1 Occurrences starting 07/08/2021 until 08/07/2022 Prostate specific an tigen measurement [facility] Prothrombin time [facility] Prothrombin time [facility] REFER FOR ADMIT INTERVIEW REFER FOR ADMIT INTERVIEW Procedures Routine Postprocedural male urethral stricture Ordered: 07/02/2021 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 Work Phone: Comment on above: Ordered: 11/28/2021 Serum immunofixation [facility] Smooth muscle Ab [Presence] in Serum [facility] Thyroid stimulating hormone measurement [facility] Thyroid stimulating hormone measurement [facility] End: 08-15-2022 Urethrocystography voiding rs&i XR VOIDING CYSTO URETHROGRAM Radiology Routine Postprocedural bulbous urethral stricture 1 Occurrences starting 07/16/2021 until 08/15/2022 [facility] Work Phone: Comment on above: 1 Occurrences starting 07/16/2021 until 08/15/2022 URINALYSIS, REFLEX MICROSCOPIC URINALYSIS, REFLEX MICROSCOPIC Lab Routine Screening for genitourinary condition Ordered: 08/23/2021 [facility] Work Phone: Comment on above: Ordered: 08/23/2021 End: 01-24-2023 Us abdominal real time w/image limited US ABD RT UPPER QUADRANT Radiology Routine Thrombocytopenia (HCC) Splenomegaly Polycythemia, secondary Hepatic steatosis 1 Occurrences starting 12/25/2021 until 01/24/2023 [facility] Work Phone: Comment on above: 1 Occurrences starting 12/25/2021 until 01/24/2023 Vitamin D, 25-hydrox y measurement [facility] Immunizations Immunization Date Immunization Notes Care Provider Korin chico 04-06-2024 influenza, seasonal, injectable Marli Podlogar HOTHOUSE WORKER.BUSINESS OPERATIONS COORDINATOR Work Phone: [facility] 04-06-2024 influenza virus vaccine, unspecified formulation Marli Podlogar HOTHOUSE WORKER.BUSINESS OPERATIONS COORDINATOR Work Phone: [facility] 02-11-2023 influenza, injectabl e, quadrivalent, contains preservative Marli Podlogar HOTHOUSE WORKER.BUSINESS OPERATIONS COORDINATOR Work Phone: [facility] 02-11-2023 influenza virus vaccine, unspecified formulation Waleska Flores MA [facility] 06-25-2022 hepatitis A and hepatitis B vaccine Julián Urias MD Work Phone: [facility] 06-25-2022 hepatitis B vaccine, unspecified formulation Julián Urias MD Work Phone: [facility] 12-25-2021 COVID-19 booster vaccine, age 12+ yr, bivalent (PFIZER-BIONTECH) Julián Urias MD Work Phone: [facility] 12-25-2021 influenza, injectabl e, quadrivalent, contains preservative Julián Urias MD Work Phone: [facility] 12-25-2021 pneumococcal (PCV20) vaccine, 20 valent (PREVNAR 20) Julián Urias MD Work Phone: [facility] 12-25-2021 pneumococcal Conjuga te, unspecified formulation Julián Urias MD Work Phone: [facility] Work Phone: 12-25-2021 influenza virus vaccine, unspecified formulation Ct (I-Stat) Work Phone: [facility] 12-19-2020 COVID-19 original vaccine, age 12+ yr, monovalent (PFIZER-BIONTECH - PURPLE TOP) Julián Urias MD Work Phone: [facility] Work Phone: 11-28-2020 COVID-19 original vaccine, age 12+ yr, monovalent (PFIZER-BIONTAngkor Residences - PURPLE TOP) Julián Urias MD Work Phone: [facility] Work Phone: 11-28-2020 Seasonal, quadrivale nt, recombinant, injectable influenza vaccine, preservative free Julián Urias MD Work Phone: [facility] Work Phone: 02-13-2020 influenza, injectabl e, quadrivalent, preservative free Dexter Wong DO Work Phone: [facility] 02-17-2018 influenza, injectabl e, quadrivalent, contains preservative Dexter Wong DO Work Phone: [facility] 02-17-2018 tetanus and diphther ia toxoids, adsorbed, preservative free, for adult use (5 Lf of tetanus toxoid and 2 Lf of diphtheria toxoid) Dexter Wong DO Work Phone: [facility] 04-10-2016 influenza, injectabl e, quadrivalent, preservative free Dexter Wong DO Work Phone: [facility] 01-19-2015 influenza, injectabl e, quadrivalent, contains preservative Julián Urias MD Work Phone: [facility] Work Phone: 02-09-2012 influenza virus vaccine, unspecified formulation Dexter Wong DO Work Phone: [facility] Work Phone: 12-25-2008 influenza virus vaccine, unspecified formulation Dexter Wong DO Work Phone: [facility] 03-02-2007 pneumococcal polysaccharide vaccine, 23 valent Dexter Marvin DO Work Phone: [facility] 11-12-2006 tetanus toxoid, redu caitie diphtheria toxoid, and acellular pertussis vaccine, adsorbed Dexter Wong DO Work Phone: [facility] Work Phone: 01-02-2005 influenza virus vaccine, unspecified formulation Dexter Wong DO Work Phone: [facility] Work Phone: 11-05-2004 tuberculin skin test ; purified protein derivative solution, intradermal Xr [place] Work Phone: [facility] Work Phone: Payers Date Payer Category Payer Self-pay [id number] 2019 Medicare (Managed Care) [employer] PPO Member Subscriber Plan / Payer (Effective 2019-Present) Name: Hal Blancas Relation to Subscriber: Self Name: Hal Blancas Payer ID: [id number] (NAIC) Group ID: [id number] Type: PPO Address: [address] [place] [id number] 2019 Unknown ANTHEM BLUE CROS S AND BLUE SHIELD ANTHEM MEDIBLUE ACCESS [id number] 2019-Present [phone] [address] [place] [address] PPO [id number] 2019 Unknown [id number] 2012 Unknown [id number] Unknown [id number] Unknown [id number] Unknown [id number] Unknown [id number] Unknown [id number] Unknown [id number] Unknown [id number] Unknown [id number] Unknown [id number] Social History Date Type Detail Facility Start: 10-08-2010 End: 08-15-2024 Tobacco smoking status DEIS Ex-smoker [facility] Work Phone: Start: 07-03-1985 End: 07-04-1987 History of tobacco use Current smoker [facility] Work Phone: Start: 07-03-1985 End: 07-04-1987 History of tobacco use Cigarette Smoker [facility] Work Phone: Start: 04-12-2021 End: 10-24-2024 Alcohol intake Current drinker of alcohol (finding) [facility] Start: 07-01-2020 History SDOH Alcohol Frequency 2 [facility] Start: 07-01-2020 History SDOH Alcohol Std Drinks 1 [facility] Start: 03-04-2021 History SDOH Alcohol Comment occasional- less than 1 drink per week [facility] Start: 07-01-2020 History SDOH Social Connections Phone 5 [facility] Start: 07-01-2020 History SDOH Social Connections Get Together 4 [facility] Start: 07-01-2020 History SDOH Social Connections Living 3 [facility] Start: 06-30-2020 Education 16 [facility] Start: 1970 Sex Assigned At Male [facility] Start: 05-25-2021 End: 01-14-2022 Exposure to SARS-CoV-2 (event) Not sure [facility] Start: 05-20-2021 Tobacco smoking status DEIS Unknown if ever smoked [facility] Work Phone: Start: 07-08-2019 None [facility] Start: 07-08-2019 Alone [facility] Start: 04-17-2021 Non-smoker [facility] Start: 10-08-2010 End: 02-11-2023 Cigarettes smoked current (pack per day) - Reported 2 [facility] Start: 10-08-2010 End: 04-06-2024 Tobacco use and exposure Smokeless tobacco non-user [facility] Work Phone: Start: 06-26-2022 End: 02-11-2023 Tobacco use panel [facility] Start: 12-02-2018 Gender identity Identifies as male gender (finding) [facility] Start: 12-02-2018 Sexual orientation Heterosexual (finding) [facility] Do you belong to any clubs or organizations such as nondenominational groups, etriggs, fraCinegif or athletic groups, or school groups? Yes [facility] Are you now , , , , never or living with a partner? [facility] How often to you hav e a drink containing alcohol? Monthly or less [facility] How many standard dr inks containing alcohol do you have on a typical day? 1 or 2 [facility] How often do you hav e 6 or more drinks on 1 occasion? Never [facility] Start: 02-01-2012 How hard is it for you to pay for the very basics like food, housing, medical care, and heating Not hard at all [facility] Do you feel stress - tense, restless, nervous, or anxious, or unable to sleep at night because your mind is troubled all the time - these days [OSQ] To some extent [facility] (I/We) worried pola er (my/our) food would run out before (I/we) got money to buy more. Never true [facility] In the past 12 month s, was there a time when you were not able to pay the mortgage or rent on time? No [facility] Start: 09-10-2023 Alcohol Comment 1 drink every 3 months [facility] How hard is it for y ou to pay for the very basics like food, housing, medical care, and heating Somewhat hard [facility] Do you feel stress - tense, restless, nervous, or anxious, or unable to sleep at night because your mind is troubled all the time - these days [OSQ] Not at all [facility] Medical Equipment Procedure Code Equipment Code Equipment Original Text Equipment Identifier Dates Tem-Wj-O-Kind Implant - [id number] Start: 07-26-2009 Comment on above: Description: Oval ca rving block implant Acz-Mp-K-Kind Implant - [id number] Start: 07-26-2009 Comment on above: Description: Oval ca rving block implant [id number], [id number], [id number], [id number], [id number], [id number] Start: 06-10-2019 End: 04-06-2024 Comment on above: Test blood sugar(s) 1 times daily. Dx: Type 2 DM - Controlled E11.9 Insulin: No Use as directed to i nject testosterone once a month Syringe With Needle (Bd Luer-Samir Syringe) 3 mL 22 gauge x 1 syringe Start: 06-22-2020 Syringe With Needle 3 mL 22 gauge x 1 syringe Start: 09-15-2023 Syringe With Needle (Bd Luer-Samir Syringe) 3 mL 22 gauge x 1 syringe Start: 06-22-2020 End: 09-15-2023 Syringe With Needle 3 mL 22 gauge x 1 syringe Start: 09-15-2023 Syringe With Needle (Bd Luer-Samir Syringe) 3 mL 22 gauge x 1 syringe Start: 06-22-2020 End: 09-15-2023 Syringe With Needle 3 mL 22 gauge x 1 syringe Start: 09-15-2023 Syringe With Needle (Bd Luer-Samir Syringe) 3 mL 22 gauge x 1 syringe Start: 06-22-2020 End: 09-15-2023 Syringe With Needle 3 mL 22 gauge x 1 syringe Start: 09-15-2023 Syringe With Needle (Bd Luer-Samir Syringe) 3 mL 22 gauge x 1 syringe Start: 06-22-2020 End: 09-15-2023 Syringe With Needle 3 mL 22 gauge x 1 syringe Start: 09-15-2023 Syringe With Needle (Bd Luer-Samir Syringe) 3 mL 22 gauge x 1 syringe Start: 06-22-2020 End: 09-15-2023 Syringe With Needle 3 mL 22 gauge x 1 syringe Start: 09-15-2023 Syringe With Needle (Bd Luer-Samir Syringe) 3 mL 22 gauge x 1 syringe Start: 06-22-2020 End: 09-15-2023 Functional Status Date Assessment Result Facility 07-17-2021 Are you blind, or do you have serious difficulty seeing, even when wearing glasses No 07/17/2021 10:43 AM Heather Martin RN No [facility] 07-17-2021 Do you have serious difficulty walking or climbing stairs No 07/17/2021 10:43 AM EDHeather Weiss, [place] No [facility] 07-17-2021 Do you have difficul ty dressing or bathing No 07/17/2021 10:43 AM Heather Martin, [place] [facility] 07-17-2021 Because of a physica l, mental, or emotional condition, do you have difficulty doing errands alone such as visiting a physician's office or shopping No 07/17/2021 10:43 AM Heather Martin RN [facility] 06-19-2014 Are you deaf, or do you have serious difficulty hearing No 06/19/2014 3:33 PM EDT Zuhair Alex No [facility] Mental Status Date Assessment Result Facility 08-16-2024 Cognitive function Level Of Cons ciousness Awake;Alert;Appropriate [facility] Work Phone: 07-17-2021 Because of a physica l, mental, or emotional condition, do you have serious difficulty concentrating, remembering, or making decisions No 07/17/2021 10:43 AM Heather Martin RN [facility] Clinical Notes 06-08-2014 to 11-21-2024 Telephone Encounter - Anika Woody LPN - 10/27/2024 11:16 AM EDTTelephone Encounter - Anika Woody LPN - 10/27/2024 11:16 AM EDTTelephone Encounter - Dexter Wong DO - 10/25/2024 4:51 PM EDT Note Date & Type Note Facility 11-21-2024 Note HNO ID: [id number] Author: JANET ORTIZ MD Service: ? Author Type: Physician Type: Progress Notes Filed: 11/21/2024 14:17 Note Text: Hepatology Clinic Rocky Saunders MD, FACG, FAASLD Director, [facility] Hepatology Virtual Consult Requested By: Ap Anguiano MD [address] [facility] [id number] for evaluation of cirrhosis .. Thank you Dr I will share my finding via In Basket HPI: 54 yo dx in 22 with cirrhosis esophageal varices Liver BX not done ascites with paracentesis 6 l removed in July 2024 , takes diuretics furosemide and He is to be back up for liver transplant Says he has steatotic liver occasionally used to drink 20 y ago IMPRESSION: CT 07/2024 1. Hepatic cirrhosis with stigmata of portal hypertension, including large esophageal varices and moderate splenomegaly. There is nonocclusive thrombus present within the right and left portal veins, main portal vein, superior mesenteric vein, and splenic vein. The venous thrombosis is new when compared to the prior CT scan. Would advise gastroenterology/hepatology referral at this time for management. 2. Moderate to large volume of ascites. Moderate left pleural effusion. started Lovenox BID sees a digital production manager in [place] wt stable at 230 240 features of the met S, DM, Overweight 260 down to 235 NO GIBleed no HE Metabolic Syndrome Risk factors: 07/04 MARC: CPAP FAMILY HISTORY Problem Relation Age of Onset Colon Cancer Mother Diabetes Father unsure of how old Coronary Artery Disease Father Hypertension Father Diabetes Sister other (sleep apnea) Sister Diabetes Sister other (sleep apnea) Sister other (Trisomy 22) Daughter other (Trisomy 22) Son PAST MEDICAL HISTORY Diagnosis Date Abdominal pain, generalized Achilles tendon tear Adjustment disorder with depressed mood Bronchitis, mucopurulent recurrent (HCC) 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 Riggs Diabetes mellitus type II (HCC) DVT of popliteal vein (HCC) 2004 Embolism and thrombosis of unspecified site 01/2004 left, positive lupus anticoagulant- using Lovenox, Previously seeing Dr. Wong Esophageal varices (HCC) Hematuria work up in progress as of 09/24/04 Hepatomegaly Hypogonadism in male 2/[address] orchiectomy for testicular pain. Dr[address] Luna Hypothyroidism Dr. Luna-jagdish Left-sided muscle weakness intermittent, has had extensive work up Obesity MARC (obstructive sleep apnea) Seeing Dr. Yin, using CPAP Osteopenia of neck of left femur 06/18/2020 Other cirrhosis of liver (HCC) 2/2 BANEGAS. Refused liver biopsy PMH - PAST MEDICAL HISTORY OF scrotal swelling Pulmonary embolism (HCC) Recurrent deep vein thrombosis (DVT) (HCC) Retention of urine, unspecified Snoring Splenomegaly Thrombocytopenia Urethral stricture 2020 Urethral stricture s/p urethroplasty 06/2021. Vitamin D deficiency PAST SURGICAL HISTORY Procedure Laterality Date COLONOSCOPY 2009 COLONOSCOPY FLX DX W/COLLJ SPEC WHEN PFRMD 03/13/2021 1 small polyp-repeat in 5 years ESOPHAGOGASTRODUODENOSCOPY TRANSORAL DIAGNOSTIC 03/13/2021 grade II esophageal varices EXPLORATORY LAPAROTOMY CELIOTOMY W/WO BIOPSY SPX 03/2005 Laparotomy, exp; incidental appendectomy IVC FILTER PERCUTANEOUS 06/2004 IVC FILTER SURGICAL LAPAROSCOPY SURG CHOLECYSTECTOMY 06/08/2014 PAST SURGICAL HISTORY OF 1975 finger rt hand table saw dipj PAST SURGICAL HISTORY OF 11/2005 Bladder pacemaker PAST SURGICAL HISTORY OF Bilateral bilateral achilles repair PAST SURGICAL HISTORY OF 2006, 2007 bilateral orchiectomy, secondary to pain PAST SURGICAL HISTORY OF 2020 placement of suprapubic catheter PAST SURGICAL HISTORY OF N/A 07/16/2021 urethroplasty with BMG SOCIAL HISTORY[1] Current Outpatient Medications on File Prior to Visit Medication Sig atorvastatin (LIPITOR) 10 mg tablet Take 1 tablet by mouth daily at bedtime. For cholesterol. enoxaparin (LOVENOX) 120 mg/0.8 mL injection Inject 111 mg subcutaneously every 12 hours. doxepin capsule 10 mg Take 1 capsule by mouth at bedtime as needed (insomnia). ipratropium-albuterol (DUONEB) 0.5 mg-3 mg(2.5 mg base)/3 mL nebu Inhale 3 mL as instructed every 4 hours as needed (wheezing). Use over 5-15minutes per nebulizer. benzonatate (TESSALON PERLE) 100 mg capsule Take 1-2 capsules by mouth three times a day as needed for cough. levothyroxine (SYNTHROID) 100 mcg tablet Take 1 tablet by mouth once daily. lisinopril (ZESTRIL) 5 mg tablet Take 1 tablet by mouth once daily. metFORMIN (GLUCOPHAGE) 1,000 mg tablet Take 1 tablet by mouth two times a day with meals. . blood sugar diagnostic (BLOOD GLUCOSE TEST) test strip Test blood sugar(s) 1 times daily. Dx: Type 2 DM - Controlled E11.9 Insulin: No Lancets Test blood sugar(s) 1 times daily. D (more content not included)... [facility] 10-27-2024 Telephone encounter Note Patient returned call and was given all instructions. Patient will crab picker new Rx and take Lovenox consistently. Anika Woody LPN [facility] 10-27-2024 Miscellaneous Notes Patient returned call and was given all instructions. Patient will crab picker new Rx and take Lovenox consistently. Anika Woody LPN Left message for patient to contact office. Anika Woody LPN Thank you for contacting [facility]. I sent in a new prescription. I strongly advise he use the Lovenox on a consistent basis and get his CBC done every 2 weeks as we discussed at OV. Dexter Wong DO Pt. Contacted concerning results and that the assay to determine the Lovenox level in his bloodstream showed it was undetectable Spoke with pt. He states he is injecting every 12 hrs. As directed, questioned if he is missing doses, informed occasionally he will miss a dose but not often. When questioned about his rx as he should have needed a refill by now, he states he has a lot on hand . Also questioned the dose he was taking and he informed 120mg , questioned he was taking the entire siringe, he states yes . Contacted [facility] pharmacy. 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 Have tried twice since our conversation to call him back, goes straight to voicemail Karolyn Carlisle LPN Please let him know that the assay to determine the Lovenox level in his bloodstream showed it was undetectable. That shouldn't be if he is taking the dose every 12 hours. If he has been consistently taking it every 12 hours then maybe technique is not correct. He may need a refresher on self injection. Dexter Wong DO documented in this encounter [facility] 10-26-2024 Telephone encounter Note Left message for patient to contact office. Anika Woody LPN [facility] 10-25-2024 Telephone encounter Note Thank you for contacting [facility]. I sent in a new prescription. I strongly advise he use the Lovenox on a consistent basis and get his CBC done every 2 weeks as we discussed at OV. Dexter Wong DO [facility] 10-25-2024 Telephone encounter Note Pt. Contacted concerning results and that the assay to determine the Lovenox level in his bloodstream showed it was undetectable Spoke with pt. He states he is injecting every 12 hrs. As directed, questioned if he is missing doses, informed occasionally he will miss a dose but not often. When questioned about his rx as he should have needed a refill by now, he states he has a lot on hand . Also questioned the dose he was taking and he informed 120mg , questioned he was taking the entire siringe, he states yes . Contacted [facility] pharmacy. 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 Have tried twice since our conversation to call him back, goes straight to voicekarena Carlisle LPN [facility] 10-25-2024 Telephone encounter Note Prescription Refill Information The patient has been identified by name and date of : Yes Caregiver verified no other encounters exist for this prescription request: Yes Caregiver confirmed with patient/requestor that no other refills are due, in the near future, with this provider at this time: Yes The last office visit in the department: 08/10/2024 Does the patient have a future office visit with this provider/department: No Requested Prescriptions Pending Prescriptions Disp Refills atorvastatin (LIPITOR) 10 mg tablet 90 tablet 1 Sig: Take 1 tablet by mouth daily at bedtime. For cholesterol. Ngoc Gonzalez LPN October 25, 2024 8:20 AM [facility] 10-25-2024 Miscellaneous Notes Prescription Refill Information The patient has been identified by name and date of : Yes Caregiver verified no other encounters exist for this prescription request: Yes Caregiver confirmed with patient/requestor that no other refills are due, in the near future, with this provider at this time: Yes The last office visit in the department: 08/10/2024 Does the patient have a future office visit with this provider/department: No Requested Prescriptions Pending Prescriptions Disp Refills atorvastatin (LIPITOR) 10 mg tablet 90 tablet 1 Sig: Take 1 tablet by mouth daily at bedtime. For cholesterol. Ngoc Gonzalez LPN October 25, 2024 8:20 AM documented in this encounter [facility] 10-24-2024 Telephone encounter Note Please let him know that the assay to determine the Lovenox level in his bloodstream showed it was undetectable. That shouldn't be if he is taking the dose every 12 hours. If he has been consistently taking it every 12 hours then maybe technique is not correct. He may need a refresher on self injection. Dexter Wong DO [facility] 10-24-2024 Note HNO ID: [id number] Author: DEXTER WONG DO Service: ? Author Type: Physician Type: Progress Notes Filed: 10/24/2024 15:03 Note Text: Diagnosis: 1) Splenomegaly. 2) Thrombocytopenia. 3) LA. 4) H/O VTE. 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 Underwent evaluation with cystoscopy and in January 2004 for a 6 month history of intermittent gross hematuria associated with passing of some clots. Developed a DVT of the left calf in 01/2004 following 2 week cast to the leg for partial tear of the Achilles tendon. US 02/28/2004 showed acute deep venous thrombosis involving the left peroneal vein without apparent extension into the left tibioperoneal trunk. Patent and compressible left greater and lesser saphenous veins. According to the record, he was hospitalized to receive unfractionated heparin and conversion to Coumadin. Evidently a CT scan revealed potential pulmonary embolism in the right upper lobe. Right femoral inferior vena cava filter placement on July 01, 2004--evidently placed due to recurring gross hematuria and need for surgical repair of Achilles tendon. In the recovery room he had tingling paresthesias in both legs and was unable to move his legs. There was concern about possible embolus to the spinal cord and he was transferred to [facility]. Workup was entirely unremarkable. MRI of the spinal cord showed no evidence of embolic injury or transverse myelitis. His symptoms gradually abated and he was able to be out of bed. 07/04/2004--He had a antiphospholipid antibody panel which showed an IGG of 63 which is markedly elevated with an IGM of 37. 08/2004--2 of 3 criteria met for lupus anticoagulant. Patient had a positive screening test and demonstration of phospholipid dependence into assays including DR CHECO phospholipid confirm ratio and platelet neutralization. Mixing studies did not demonstrate the presence of inhibitor. Evaluated for pneumaturia 03/2005. 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 He then underwent a barium enema which demonstrated barium in his urine on xray of the urinal. There was no air or contrast seen in the bladder during BE or CT scan. 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 Colonsocopy on March 18 was unremarkable. Underwent exploration on March 19. No abnormalities were found. An incidental appendectomy was performed. Was then evaluated initially by urology at [facility] 05/2005. Notes indicate he was on Coumadin at that time. Ultimately ended up undergoing sequential orchiectomy for continued testicular pain. He also continued to have obstructive voiding symptoms. He was followed by Dr. Batista 2006 through 2012 for his history of lupus anticoagulant pulmonary embolism. In 2012 and a follow-up visit it was noted that he had self discontinued Lovenox injections and was diagnosed with recurrent pulmonary emboli when admitted to [facility] for pneumonia. Patient was advised at that time to resume Lovenox injections. No follow-up in this office until 2016. The patient had worsening left upper quadrant pain over the last couple months prior to evaluation here 2016. It was bad enough that he went to the emergency room on 04/10/2016. A CT scan the abdomen and pelvis was performed--was noted to have hepatomegaly and severe splenomegaly, but no measurements rendered. Had bone marrow biopsy 04/2016 that showed a normocellular bone marrow with trilineage hematopoiesis along with erythroid hyperplasia and adequate megakaryocytes. No evidence of lymphoma or lymphoproliferative disorder. I had ordered a liver vascular ultrasound at that time to assess for portal hypertension. Patient did not schedule it for approximately 6 months later. There was no clear evidence of liver disease or increase important pressures that would have led to splenomegaly. Since spleen size was stable at that time (10/2016) compared to earlier in the year and bone marrow biopsy was unremarkable I suggested monitoring with ultrasound was reasonable. Patient did not get back to us with his decision on this. Patient was seen by Dr. Corado at the department of hematology [facility] in July 2019. Consultation with general surgery for splenectomy was advised. Patient declined. He is opted for expectant management knowing that there may be a lymphoproliferative disorder undiagnosed. He had EGD and colonoscopy 03/13/2021. On EGD he was found to have grade 2 esophageal varices. Mucosa of the stomach and examined portions of the duodenal mucosa were normal. Biopsy was obtained from the gastric mucosa. On colonoscopy was found to have one 5 mm polyp in the descending colon which was removed with hot snare. (more content not included)... [facility] 10-24-2024 History of Present illness Narrative Diagnosis: 1) Splenomegaly. 2) Thrombocytopenia. 3) LA. 4) H/O VTE. 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 Underwent evaluation with cystoscopy and in January 2004 for a 6 month history of intermittent gross hematuria associated with passing of some clots. Developed a DVT of the left calf in 01/2004 following 2 week cast to the leg for partial tear of the Achilles tendon. US 02/28/2004 showed acute deep venous thrombosis involving the left peroneal vein without apparent extension into the left tibioperoneal trunk. Patent and compressible left greater and lesser saphenous veins. According to the record, he was hospitalized to receive unfractionated heparin and conversion to Coumadin. Evidently a CT scan revealed potential pulmonary embolism in the right upper lobe. Right femoral inferior vena cava filter placement on July 01, 2004--evidently placed due to recurring gross hematuria and need for surgical repair of Achilles tendon. In the recovery room he had tingling paresthesias in both legs and was unable to move his legs. There was concern about possible embolus to the spinal cord and he was transferred to [facility]. Workup was entirely unremarkable. MRI of the spinal cord showed no evidence of embolic injury or transverse myelitis. His symptoms gradually abated and he was able to be out of bed. 07/04/2004--He had a antiphospholipid antibody panel which showed an IGG of 63 which is markedly elevated with an IGM of 37. 08/2004--2 of 3 criteria met for lupus anticoagulant. Patient had a positive screening test and demonstration of phospholipid dependence into assays including DR CHECO phospholipid confirm ratio and platelet neutralization. Mixing studies did not demonstrate the presence of inhibitor. Evaluated for pneumaturia 03/2005. 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 He then underwent a barium enema which demonstrated barium in his urine on xray of the urinal. There was no air or contrast seen in the bladder during BE or CT scan. 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 Colonsocopy on March 18 was unremarkable. Underwent exploration on March 19. No abnormalities were found. An incidental appendectomy was performed. Was then evaluated initially by urology at [facility] 05/2005. Notes indicate he was on Coumadin at that time. Ultimately ended up undergoing sequential orchiectomy for continued testicular pain. He also continued to have obstructive voiding symptoms. He was followed by Dr. Batista 2006 through 2012 for his history of lupus anticoagulant pulmonary embolism. In 2012 and a follow-up visit it was noted that he had self discontinued Lovenox injections and was diagnosed with recurrent pulmonary emboli when admitted to [facility] for pneumonia. Patient was advised at that time to resume Lovenox injections. No follow-up in this office until 2016. The patient had worsening left upper quadrant pain over the last couple months prior to evaluation here 2016. It was bad enough that he went to the emergency room on 04/10/2016. A CT scan the abdomen and pelvis was performed--was noted to have hepatomegaly and severe splenomegaly, but no measurements rendered. Had bone marrow biopsy 04/2016 that showed a normocellular bone marrow with trilineage hematopoiesis along with erythroid hyperplasia and adequate megakaryocytes. No evidence of lymphoma or lymphoproliferative disorder. I had ordered a liver vascular ultrasound at that time to assess for portal hypertension. Patient did not schedule it for approximately 6 months later. There was no clear evidence of liver disease or increase important pressures that would have led to splenomegaly. Since spleen size was stable at that time (10/2016) compared to earlier in the year and bone marrow biopsy was unremarkable I suggested monitoring with ultrasound was reasonable. Patient did not get back to us with his decision on this. Patient was seen by Dr. Corado at the department of hematology main campus in July 2019. Consultation with general surgery for splenectomy was advised. Patient declined. He is opted for expectant management knowing that there may be a lymphoproliferative disorder undiagnosed. He had EGD and colonoscopy 03/13/2021. On EGD he was found to have grade 2 esophageal varices. Mucosa of the stomach and examined portions of the duodenal mucosa were normal. Biopsy was obtained from the gastric mucosa. On colonoscopy was found to have one 5 mm polyp in the descending colon which was removed with hot snare. It was resected and retrieved. Nonbleeding internal hemorrhoids were observed. Otherwise the colonic mucosa was normal. Pathology: A. Antrum, biopsy - Oxyntic mucosa with no significant diagnostic alteration. - No morphologic evidence of Helicobacter pylori organisms. B. Descending colon polyp, biopsy - Tubular adenoma. Was seen by gastroenterology 04/2021. Ultrasound liver and spleen demonstrated stable splenomegaly at 23 cm. The echotexture of the liver was normal, homogeneous. Echogenicity was normal. Surface contour was smooth. No lesions were identified. Was to have a FibroScan of the liver but not clear that it was completed. Liver biopsy was advised but he declined since he wanted to have the surgery for urethral stricture done prior to doing any more testing. Underwent anterior urethroplasty of bulbous and membranous urethra with ventral onlay of buccal mucosal graft and dorsal partial thickness augmented anastomotic repair of bulbar urethra 07/16/2021. Subsequent excision fo suprapubic tube tract fistula 01/15/2022. Presents for ongoing hematologic management. Interim history: Last followed up here April 2022. Continues on Lovenox prescribe a PCP for history of lupus anticoagulant. Endorses he has been compliant with dosing since undergoing paracentesis. He thinks there were lapses in Lovenox since last seen here. Recent CT A/P. Results noted. Paracentesis at [facility] 05/2024. 6 L. Appetite fair. Occasional LUQ pain. Bowels moving regularly. Denies black and bloody stools. PAST MEDICAL HISTORY Diagnosis Date Abdominal pain, generalized Achilles tendon tear Adjustment disorder with depressed mood Bronchitis, mucopurulent recurrent (HCC) 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 Riggs Diabetes mellitus type II (HCC) DVT of popliteal vein (HCC) 2004 Embolism and thrombosis of unspecified site 01/2004 left, positive lupus anticoagulant- using Lovenox, Previously seeing Dr. Wong Esophageal varices (HCC) Hematuria work up in progress as of 09/24/04 Hepatomegaly Hypogonadism in male 2/[address] testicular pain[address] Dr[address] Luna Hypothyroidism Dr. Luna-jagdish Left-sided muscle weakness intermittent, has had extensive work up Obesity MARC (obstructive sleep apnea) Seeing Dr. Yin, using CPAP Osteopenia of neck of left femur 06/18/2020 Other cirrhosis of liver (HCC) 2/2 BANEGAS. Refused liver biopsy PMH - PAST MEDICAL HISTORY OF scrotal swelling Pulmonary embolism (HCC) Recurrent deep vein thrombosis (DVT) (HCC) Retention of urine, unspecified Snoring Splenomegaly Thrombocytopenia Urethral stricture 2020 Urethral stricture s/p urethroplasty 06/2021. Vitamin D deficiency PAST SURGICAL HISTORY Procedure Laterality Date COLONOSCOPY 2009 COLONOSCOPY FLX DX W/COLLJ SPEC WHEN PFRMD 03/13/2021 1 small polyp-repeat in 5 years ESOPHAGOGASTRODUODENOSCOPY TRANSORAL DIAGNOSTIC 03/13/2021 grade II esophageal varices EXPLORATORY LAPAROTOMY CELIOTOMY W/WO BIOPSY SPX 03/2005 Laparotomy, exp; incidental appendectomy IVC FILTER PERCUTANEOUS 06/2004 IVC FILTER SURGICAL LAPAROSCOPY SURG CHOLECYSTECTOMY 06/08/2014 PAST SURGICAL HISTORY OF 1975 finger rt hand table saw dipj PAST SURGICAL HISTORY OF 11/2005 Bladder pacemaker PAST SURGICAL HISTORY OF Bilateral bilateral achilles repair PAST SURGICAL HISTORY OF 2006, 2007 bilateral orchiectomy, secondary to pain PAST SURGICAL HISTORY OF 2020 placement of suprapubic catheter PAST SURGICAL HISTORY OF N/A 07/16/2021 urethroplasty with BMG ALLERGIES Allergen Reactions Piperacillin Rash Vancocin [Vancomyci* Rash Latex Rash Sodium Hypochlorite* Rash Current Outpatient Medications Medication Sig doxepin capsule 10 mg Take 1 capsule by mouth at bedtime as needed (insomnia). ipratropium-albuterol (DUONEB) 0.5 mg-3 mg(2.5 mg base)/3 mL nebu Inhale 3 mL as instructed every 4 hours as needed (wheezing). Use over 5-15minutes per nebulizer. benzonatate (TESSALON PERLE) 100 mg capsule Take 1-2 capsules by mouth three times a day as needed for cough. atorvastatin (LIPITOR) 10 mg tablet Take 1 tablet by mouth daily at bedtime. For cholesterol. levothyroxine (SYNTHROID) 100 mcg tablet Take 1 tablet by mouth once daily. lisinopril (ZESTRIL) 5 mg tablet Take 1 tablet by mouth once daily. metFORMIN (GLUCOPHAGE) 1,000 mg tablet Take 1 tablet by mouth two times a day with meals. . enoxaparin (LOVENOX) 120 mg/0.8 mL injection Inject 111 mg subcutaneously every 12 hours. blood sugar diagnostic (BLOOD GLUCOSE TEST) test strip Test blood sugar(s) 1 times daily. Dx: Type 2 DM - Controlled E11.9 Insulin: No Lancets Test blood sugar(s) 1 times daily. Dx: Type 2 DM - Controlled E11.9 Insulin: No acetaminophen (TYLENOL) 325 mg tablet Take 2 tablets by mouth every 6 hours as needed for pain. ACCU-CHEK GUIDE ME GLUCOSE MTR USE TO TEST BLOOD SUGAR testosterone enanthate (DELATESTRYL) 200 mg/mL injection CPAP Patient would like to change DME closer to home. Needs mask and supplies. Current PAP device only 3 months old. Need download from device. Lifetime supplies. Syringe with Needle, Disp, 3 mL 22 gauge x 1 syrg Use as directed to inject testosterone once a month ALBUTEROL 90 MCG/ACTUATION AEROSOL INHALER Inhale two(2) puffs four(4) times a day for wheezing and shortness of breath. No current facility-administered medications for this visit. SOCIAL HISTORY[1] PHYSICAL EXAM: Vitals: Blood pressure 96/60, pulse 65, temperature 36.7 C (98 F), temperature source Temporal, height 186.7 cm (6' 1.5), weight 105.7 kg (233 lb), SpO2 100%. Well-appearing and in no acute distress. EYES: Sclerae are anicteric bilaterally. LYMPHATIC: There is no palpable cervical or supraclavicular adenopathy. ABDOMEN: The abdomen is distended. There is tender splenomegaly. SKIN: No jaundice or rash. ASSESSMENT/PLAN: (D68.62) Lupus anticoagulant disorder (HCC) (primary encounter diagnosis) (I82.409) Recurrent deep vein thrombosis (DVT) (HCC) (D64.9) Anemia, unspecified type (D69.6) Thrombocytopenia (R16.1) Splenomegaly Assessment: -54 year-old male who has a past medical history significant for lupus anticoagulant, splenomegaly and recurrent VTE. -PCR for factor V Leiden negative in 08/2004 (has at least two siblings who have factor V Leiden by PCR). -Most recent evaluation for LA positive 03/09/2019. - Radiographic evidence of cirrhosis, history of esophageal varices worsening splenomegaly along with worsening thrombocytopenia as well as portal, splenic and superior mesenteric venous thrombosis. -Difficult management situation. He requires anticoagulation given the degree of thrombosis but he is at risk for bleeding given platelet count and history of esophageal varices. Discussed and outlined plan with him below. Plan: -Continue Lovenox at current anticoagulant dosing.. -Check low molecular weight heparin assay to determine degree of anticoagulation. Has been about approximately 3 and half to 4 hours since most recent dose. -Recheck lupus anticoagulant panel. -Check platelet factor 4 antibody. -Chemistry panel and iron levels. -CBC every 2 weeks to monitor platelet count closely. -Advised him to keep GI follow-up. Portions of this documentation were copied and pasted from my previous office visit note dated 05/03/2022 in order to provide a cohesive continuity of the history. The note has been reviewed and edited and updated as necessary. Dexter Wong DO [1] Social History Tobacco Use Smoking status: Former Current packs/day: 0.00 Average packs/day: 2.0 packs/day for 2.0 years (4.0 ttl pk-yrs) Types: Cigarettes Start date: 07/03/1985 Quit date: 07/04/1987 Years since quittin.3 Smokeless tobacco: Never Vaping Use Vaping status: Never Used Substance Use Topics Alcohol use: Yes Comment: 1 drink every 3 months Drug use: No documented in this encounter [facility] 09-01-2024 Telephone encounter Note Patient MyChart message requesting the following refill. Requested Prescriptions Pending Prescriptions Disp Refills doxepin capsule 10 mg 30 capsule 2 Sig: Take 1 capsule by mouth at bedtime as needed (insomnia). Patient last appointment: 08/10/24 Patient Phone numbers: [phone] (home) Request is for script(s) to be escript to pharmacy. Alejandra Angel MA [facility] 09-01-2024 Miscellaneous Notes Patient MyChart message requesting the following refill. Requested Prescriptions Pending Prescriptions Disp Refills doxepin capsule 10 mg 30 capsule 2 Sig: Take 1 capsule by mouth at bedtime as needed (insomnia). Patient last appointment: 08/10/24 Patient Phone numbers: [phone] (home) Request is for script(s) to be escript to pharmacy. Alejandra Angel MA documented in this encounter [facility] 08-16-2024 Telephone encounter Note Reviewed. Marli Cook APRN.HAKAN [facility] 08-16-2024 Miscellaneous Notes Reviewed. Marli Cook APRN.CNP Faxed to [phone] with confirmation received. Telephone call placed to patient, answered. Notified form had been faxed. stated the hospital called and everything is ready to go for patient to get procedure done this afternoon. Ngoc Gonzalez LPN Please fax approval to hold dose to [facility]. Please let patient know it was sent. Marli Cook APRN.CNP Pt calls in to check on status of message. Pt reports they want him to hold the morning dose. Brigette Smith LPN Hold it for one dose, one day, one week? Marli Cook APRN.CNP Call placed to [facility]. GI placed the order for the paracentesis. They need to know if patient can hold lovenox x1 so patient can have this procedure done. Ngoc Gonzalez LPN What order are they talking about. We did not order draining of abdomen. Patient wanted referral to see GI and he asked that it be sent to [facility]. Marli Cook APRN.CNP [facility]- [facility]- reports Benji Barahonalogbentley sent them an order to drain pt's abdomen. Asking if patient is able to hold the lovenox for procedure? [facility] is faxing request to [facility] Barahonalogbentley today. Please let [facility] know serena. documented in this encounter [facility] 08-16-2024 Telephone encounter Note Faxed to [phone] with confirmation received. Telephone call placed to patient, answered. Notified form had been faxed. stated the hospital called and everything is ready to go for patient to get procedure done this afternoon. Ngoc Gonzalez LPN [facility] 08-16-2024 Telephone encounter Note Please fax approval to hold dose to [facility]. Please let patient know it was sent. Marli Cook APRN.HAKAN [facility] 08-15-2024 Telephone encounter Note Pt calls in to check on status of message. Pt reports they want him to hold the morning dose. Brigette Smith LPN [facility] 08-15-2024 Telephone encounter Note Hold it for one dose, one day, one week? Marli Cook APRN.CNP [facility] 08-15-2024 Telephone encounter Note Call placed to [facility]. GI placed the order for the paracentesis. They need to know if patient can hold lovenox x1 so patient can have this procedure done. Ngoc Gonzalez LPN [facility] 08-15-2024 Telephone encounter Note What order are they talking about. We did not order draining of abdomen. Patient wanted referral to see GI and he asked that it be sent to [facility]. Marli Cook APRN.CNP [facility] 08-15-2024 Telephone encounter Note [facility]- [facility]- reports Benji Podlogbentley sent them an order to drain pt's abdomen. Asking if patient is able to hold the lovenox for procedure? [facility] is faxing request to [facility] Podlogbentley today. Please let [facility] know serena. [facility] 08-15-2024 Evaluation note Diagnosis Onset Date Resolution Abdominal pain acute August 15, 2024 11:04am Ascites acute August 15 11:04am Decompensated cirrhosis acute J une 2024 11:04am Esophageal varices in cirrhosis acute August 15, 2024 11:04am Pleural effusion on left acute August 15, 2024 11:04am Portal hypertension acute August 15, 2024 11:04am PVT (portal vein thrombosis) acute August 15, 2024 11:04am Thrombosis of splanchnic vein acute August 15, 2024 11:04am Lupus anticoagulant disorder chronic August 15, 2024 11:04am SOB (shortness of breath) chronic August 15, 2024 11:04am Ascites acute August 16 11:08am [facility] Work Phone: 1(454) 568-121206-16-2025 Evaluation note* Diagnosis Onset Date Resolution Status Admit Date Abdominal pain acute August 15, 2024 11:04am Ascites acute August 15 11:04am Decompensated cirrhosis acute J une 2024 11:04am Esophageal varices in cirrhosis acut e August 15, 2024 11:04am Pleural effusion on left acute August 15, 2024 11:04am Portal hypertension acute August 15, 2024 11:04am PVT (portal vein thrombosis) acute August 15, 2024 11:04am Thrombosis of splanchnic vein acute August 15, 2024 11:04am Lupus anticoagulant disorder chronic August 15, 2024 11:04am SOB (shortness of breath) chronic August 15, 2024 11:04am Ascites acute August 16 11:08am Ascites acute September 09 2:18pm Decompensated cirrhosis acute J julio 2024 2:18pm Esophageal varices in cirrhosis acut e September 09, 2024 2:18pm Portal hypertension acute September 09, 2024 2:18pm PVT (portal vein thrombosis) acute September 09, 2024 2:18pm Thrombosis of splanchnic vein acute September 09, 2024 2:18pm Lupus anticoagulant disorder chronic September 09, 2024 2:18pm [facility] Work Phone: 1(442) 383-264906-16-2025 Evaluation note* Diagnosis Onset Date Resolution Status Admit Date Abdominal pain acute August 15, 2024 11:04am Ascites acute August 15 11:04am Esophageal varices in cirrhosis acut e August 15, 2024 11:04am Pleural effusion on left acute August 15, 2024 11:04am Portal hypertension acute August 15, 2024 11:04am PVT (portal vein thrombosis) acute August 15, 2024 11:04am Thrombosis of splanchnic vein acute August 15, 2024 11:04am Decompensated cirrhosis chronic J une 2024 11:04am Lupus anticoagulant disorder chronic August 15, 2024 11:04am SOB (shortness of breath) chronic August 15, 2024 11:04am Ascites acute August 16 11:08am Ascites acute September 09 2:18pm Esophageal varices in cirrhosis acut e September 09, 2024 2:18pm Portal hypertension acute September 09, 2024 2:18pm PVT (portal vein thrombosis) acute September 09, 2024 2:18pm Thrombosis of splanchnic vein acute September 09, 2024 2:18pm Decompensated cirrhosis chronic J julio 2024 2:18pm Lupus anticoagulant disorder chronic September 09, 2024 2:18pm [place] [facility] [employer] [facility] Work Phone: 1(593) 292-762006-13-2025 Telephone encounter Note* Telephone Encounter - Ngoc Gonzalez LPN - 08/12/2024 11:29 AM EDT Patient notified. Scheduled 08/[address] Hodge at [facility]. Ngoc Gonzalez LPN [facility]06-13-2025 Miscellaneous Notes* Telephone Encounter - Ngoc Gonzalez LPN - 08/12/2024 11:29 AM EDT Patient notified. Scheduled 08/[address] Hodge at [facility]. Ngoc Gonzalez LPN * Telephone Encounter - Marli Cook APRN.BUSINESS OPERATIONS COORDINATOR - 08/12/2024 9:57 AM EDT Stool is positive for blood. Will need to follow-up with GI for colonoscopy. Will place order for this. Marli Cook APRN.CNP [facility] Telephone encounter Note * Telephone Encounter - Nori Corbin RN - 08/12/2024 10:44 AM EDT Faxed referral, imaging, lab results, ov notes, demographics, to [facility] [place] / Dr. Hodge, per patient request. . Pt reports he has an appt with Dr. Hodge on Thursday. [facility]06-13-2025 Miscellaneous Notes* Telephone Encounter - Nori Corbin RN - 08/12/2024 10:44 AM EDT Faxed referral, imaging, lab results, ov notes, demographics, to [facility] [place] / Dr. Hodge, per patient request. . Pt reports he has an appt with Dr. Hodge on Thursday. [facility] Telephone encounter Note * Telephone Encounter - Marli Cook APRN.CNP - 08/12/2024 9:57 AM EDT Stool is positive for blood. Will need to follow-up with GI for colonoscopy. Will place order for this. Marli Cook APRN.CNP [facility]06-12-2025 Telephone encounter Note* Telephone Encounter - Alejandra Angel MA - 08/11/2024 2:25 PM EDT Patient informed in detail and verbalized understanding. He was transferred to scheduling while on phone to set up appointment. Alejandra Angel MA [facility]06-12-2025 Miscellaneous Notes* Telephone Encounter - Alejandra Angel MA - 08/11/2024 2:25 PM EDT Patient informed in detail and verbalized understanding. He was transferred to scheduling while on phone to set up appointment. Alejandra Angel MA * Telephone Encounter - Julián Urias MD - 08/11/2024 12:[address] scan shows cirrhosis with portal hypertension, esophageal varices, moderately enlargedspleen and non obstructing thrombosis of portal veins. The thrombosis is a new finding compared to prior CT scan. Also noted moderate to large volume ascites. If patient is not seeing GI/Hepatology already, he needs to get an appointment [facility]. New referral order placed. Also placed referral order for vascular. Needs to discuss possible anticoagulation with these specialists and may need to have ascites drained. If patient has developed severe abdominal pain, fever/chills, bloody vomiting, blood in stool, darkblack stool he would need to be seen in the ER immediately instead. * Telephone Encounter - Lupe Hammond RN - 08/11/2024 12:02 PM EDT Radiology calls and wanted provider to know that there are actionable findings on patient's CT Scan. Please review and advise, Lupe Hammond RN [facility] Telephone encounter Note * Telephone Encounter - Julián Urias MD - 08/11/2024 12:[address] scan shows cirrhosis with portal hypertension, esophageal varices, moderately enlargedspleen and non obstructing thrombosis of portal veins. The thrombosis is a new finding compared to prior CT scan. Also noted moderate to large volume ascites. If patient is not seeing GI/Hepatology already, he needs to get an appointment [facility]. New referral order placed. Also placed referral order for vascular. Needs to discuss possible anticoagulation with these specialists and may need to have ascites drained. If patient has developed severe abdominal pain, fever/chills, bloody vomiting, blood in stool, darkblack stool he would need to be seen in the ER immediately instead. [facility]06-12-2025 Telephone encounter Note* Telephone Encounter - Lupe Hammond RN - 08/11/2024 12:02 PM EDT Radiology calls and wanted provider to know that there are actionable findings on patient's CT Scan. Please review and advise, Lupe Hammond RN [facility]06-12-2025 History of Present illness Narrative* Reef Karen Sauceda RT(R) - 08/11/2024 10:40 AM EDT Radiology Service Progress Note DATE OF SERVICE: August 11, 2024 TIME: 3:55 PM PATIENT IDENTITY VERIFICATION COMPLETED USING TWO (2) STANDARD IDENTIFIERS: Name and Date of confirmed by patient verbally. FALL SCREENING: Has the patient had 2 falls in the last year or 1 fall with injury or currently using an Ambulatory Assistive Device (Walker, Cane, Wheelchair, Crutches, etc.)? No PATIENT GENDER DATA: Assigned male at PATIENT RELEVANT IMPLANT DATA REVIEWED: Yes PATIENT PRESENTS WITH AN IMPLANTABLE OR ATTACHED COKE OVEN MASON: No ALLERGIES: Reviewed and unchanged CONTRAST ALLERGY: NO. EXAM: CT -CONTRAST INDUCED NEPHROPATHY RISK FACTORS: Not applicable CREATININE: Creatinine Date Value Ref Range Status 08/11/2024 0.79 0.73 - 1.22 mg/dL Final 04/06/2024 0.94 0.73 - 1.22 mg/dL Final 09/11/2023 0.72 (L) 0.73 - 1.22 mg/dL Final Estimated Glomerular Filtration Rate Date Value Ref Range Status 08/11/2024 105 >=60 mL/min/1.73m Final Comment: Estimated Glomerular Filtration Rate (eGFR) is calculated using the 2020 CKD-EPI creatinine equation. This equation utilizes serum creatinine, sex, and age as parameters. The creatinine assay has traceable calibration to isotope dilution- mass spectrometry. Refer to KDIGO guidelines for clinical interpretation. In patients with unstable renal function, e.g. those with acute kidney injury, the eGFRmay not accurately reflect actual GFR. eGFR- Date Value Ref Range Status 02/12/2021 >60 Final P.O.C.T. RESULTS: POC done: Yes, See Lab Tab August 11, 2024 TREATMENT: N/A PERIPHERAL IV DATA: Ambulatory: A peripheral IV was started in the Left antecubital site with a Angio cath: 22 gauge. RADIOLOGY DEPARTMENT: CT; Exam(s) Completed: Abdomen/Pelvis SIGNATURE: WENDY Silverio) PATIENT NAME: Hal Blancas DATE: August 11, 2024 TIME: 3:55 PM documented in [facility] NoteHNO ID: [id number] Author: KAREN FORD RT(R) Service: ? Author Type: Ripsawyer Type: Progress Notes Filed: 08/11/2024 15:55 Note Text: Radiology Service Progress Note DATE OF SERVICE: August 11, 2024 TIME: 3:55 PM PATIENT IDENTITY VERIFICATION COMPLETED USING TWO (2) STANDARD IDENTIFIERS: Name and Date of confirmed by patient verbally. FALL SCREENING: Has the patient had 2 falls in the last year or 1 fall with injury or currently using an Ambulatory Assistive Device (Walker, Cane, Wheelchair, Crutches, etc.)? No PATIENT GENDER DATA: Assigned male at PATIENT RELEVANT IMPLANT DATA REVIEWED: Yes PATIENT PRESENTS WITH AN IMPLANTABLE OR ATTACHED COKE OVEN MASON: No ALLERGIES: Reviewed and unchanged CONTRAST ALLERGY: NO. EXAM: CT -CONTRAST INDUCED NEPHROPATHY RISK FACTORS: Not applicable CREATININE: Creatinine Date Value Ref Range Status 08/11/2024 0.79 0.73 - 1.22 mg/dL Final 04/06/2024 0.94 0.73 - 1.22 mg/dL Final 09/11/2023 0.72 (L) 0.73 - 1.22 mg/dL Final Estimated Glomerular Filtration Rate Date Value Ref Range Status 08/11/2024 105 >=60 mL/min/1.73m? Final Comment: Estimated Glomerular Filtration Rate (eGFR) is calculated using the 2020 CKD-EPI creatinine equation. This equation utilizes serum creatinine, sex, and age as parameters. The creatinine assay has traceable calibration to isotope dilution-mass spectrometry. Refer to KDIGO guidelines for clinical interpretation. In patients with unstable renal function, e.g. those with acute kidney injury, the eGFR may not accurately reflect actual GFR. eGFR- Date Value Ref Range Status 02/12/2021 >60 Final P.O.C.T. RESULTS: POC done: Yes, See Lab Tab August 11, 2024 TREATMENT: N/A PERIPHERAL IV DATA: Ambulatory: A peripheral IV was started in the Left antecubital site with a Angio cath: 22 gauge. RADIOLOGY DEPARTMENT: CT; Exam(s) Completed: Abdomen/Pelvis SIGNATURE: RT Jean Claude(R) PATIENT NAME: Hal Blancas DATE: August 11, 2024 TIME: 3:55 [facility]06-11-2025 Instructions* Patient Instructions* Marli Cook APRN.CNP - 08/10/2024 2:41 PM EDT - Schedule an abdominal CT scan with contrast as soon as possible--call the front desk officer today to arrange it. - Complete the blood tests ordered today (these are marked stat). - Use the stool kit provided to collect a sample and return it for fecal blood testing. - Call Dr. Wong's office to set up your gastroenterology appointment. - We will review your CT and lab results and contact you to discuss the next steps once they are available. [facility] History of Present illness Narrative* Marli Cook HOTHOUSE WORKER.BUSINESS OPERATIONS COORDINATOR - 08/10/2024 2:20 PM EDT 08/10/2024 Patient presents with: Abdominal Pain: All over x2 months; increasingly getting worse Recording using ambient Sequent software for draft documentation of the visit was discussed with the patient/authorized product sales representative; all questions welcomed and answered. Patient/authorized product sales representative agreed to proceed SUBJECTIVE: This is a 54 year old that is here today for Above Complaints.. Abdominal Pain: - Reports RUQ pain described as feeling like being tasered, occurring periodically. - Abdominal swelling noted, described as really hard. - Denies nausea, emesis, jaundice, hematemesis, or diarrhea. - Reports chills, but denies fevers. - Denies any other bleeding symptoms. - Bowel movements are regular, occurring daily. - Occasional black stools lasting 1-2 days, then returning to normal; no recent episodes. - Denies lincoln-colored stools or itching Weight Gain: - Hal noticed rapid weight gain. - Weight increased from 257 lbs to 267 lbs over the past few months. Left Foot Swelling: - Hal observed swelling in the left foot. - Continues to take Lovenox. Diabetes Mellitus: - Blood glucose levels decreased from 130 mg/dL to 110 mg/dL recently. - Currently taking Metformin. PAST MEDICAL HISTORY Diagnosis Date Abdominal pain, generalized Achilles tendon tear Adjustment disorder with depressed mood Bronchitis, mucopurulent recurrent (HCC) 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 Riggs Diabetes mellitus type II (HCC) DVT of popliteal vein (HCC) 2004 Embolism and thrombosis of unspecified site 01/2004 left, positive lupus anticoagulant- using Lovenox, Previously seeing Dr. Wong Esophageal varices (HCC) Hematuria work up in progress as of 09/24/04 Hepatomegaly Hypogonadism in male 2/[address] Luna Hypothyroidism Dr. Luna-endo Left-sided muscle weakness intermittent, has had extensive work up Obesity MARC (obstructive sleep apnea) Seeing Dr. Yin, using CPAP Osteopenia of neck of left femur 06/18/2020 Other cirrhosis of liver (HCC) 2/2 BANEGAS. Refused liver biopsy PMH - PAST MEDICAL HISTORY OF scrotal swelling Pulmonary embolism (HCC) Recurrent deep vein thrombosis (DVT) ([facility]) Retention of urine, unspecified Snoring Splenomegaly Thrombocytopenia Urethral stricture 2020 Urethral stricture s/p urethroplasty 06/2021. Vitamin D deficiency ALLERGIES Piperacillin, Vancocin [Vancomycin], Latex, and Sodium Hypochlorite Solution MEDICATIONS Current Outpatient Medications Medication Sig iv contrast (will be provided with radiology test) CT ABD/PEL -Inject, intravenously, once for 1 dose.No IV access, insert saline lock prior to the beginning of sedation, infusion, injection of imaging exam. Discontinue saline lock post exam. If Pt. has a central line or IVAD, may access for administration according to line specific nursing protocol. Once exam is complete flush line and de-accessaccording to line specific nursing protocol in the CT contrast administration guidelines link. ipratropium-albuterol (DUONEB) 0.5 mg-3 mg(2.5 mg base)/3 mL nebu Inhale 3 mL as instructed every 4hours as needed (wheezing). Use over 5-15minutes per nebulizer. benzonatate (TESSALON PERLE) 100 mg capsule Take 1-2 capsules by mouth three times a day as needed for cough. atorvastatin (LIPITOR) 10 mg tablet Take 1 tablet by mouth daily at bedtime. For cholesterol. levothyroxine (SYNTHROID) 100 mcg tablet Take 1 tablet by mouth once daily. lisinopril (ZESTRIL) 5 mg tablet Take 1 tablet by mouth once daily. metFORMIN (GLUCOPHAGE) 1,000 mg tablet Take 1 tablet by mouth two times a day with meals. . enoxaparin (LOVENOX) 120 mg/0.8 mL injection Inject 111 mg subcutaneously every 12 hours. blood sugar diagnostic (BLOOD GLUCOSE TEST) test strip Test blood sugar(s) 1 times daily. Dx: Type 2 DM - Controlled E11.9 Insulin: No doxepin capsule 10 mg Take 1 capsule by mouth at bedtime as needed (insomnia). Lancets Test blood sugar(s) 1 times daily. Dx: Type 2 DM - Controlled E11.9 Insulin: No acetaminophen (TYLENOL) 325 mg tablet Take 2 tablets by mouth every 6 hours as needed for pain. ACCU-CHEK GUIDE ME GLUCOSE MTR USE TO TEST BLOOD SUGAR testosterone enanthate (DELATESTRYL) 200 mg/mL injection CPAP Patient would like to change DME closer to home. Needs mask and supplies. Current PAP device only 3 months old. Need download from device. Lifetime supplies. Syringe with Needle, Disp, 3 mL 22 gauge x 1 syrg Use as directed to inject testosterone once a month ALBUTEROL 90 MCG/ACTUATION AEROSOL INHALER Inhale two(2) puffs four(4) times a day for wheezing andshortness of breath. No current facility-administered medications for this visit. Medications and allergies reviewed by this provider. SOCIAL HISTORY Social History Tobacco Use Smoking status: Former Current packs/day: 0.00 Average packs/day: 2.0 packs/day for 2.0 years (4.0 ttl pk-yrs) Types: Cigarettes Start date: 07/03/1985 Quit date: 07/04/1987 Years since quittin.1 Smokeless tobacco: Never Vaping Use Vaping status: Never Used Substance Use Topics Alcohol use: Yes Comment: 1 drink every 3 months Drug use: No REVIEW OF SYSTEMS All other reviewed and negative other than HPI. OBJECTIVE: BP 128/68 Pulse 86 Temp 36.7 C (98.1 F) Resp 18 Wt 121.4 kg (267 lb 9.6 oz) SpO2 97% BMI 34.71 kg/m . Vital signs reviewed by this provider. GENERAL: NAD, alert and oriented. SKIN: Unremarkable, no rash or skin lesions to exposed skin HEAD: Normocephalic. EYES: conjunctiva clear. NECK: Supple, no lymphadenopathy, normal thyroid LUNGS: Clear to auscultation bilaterally, no wheezes/rhonchi/rales. HEART: Regular rate and rhythm, no murmurs. No ectopy. EXTREMITIES: BLE with mild non-pitting edema No deformities, no skin discoloration. ABDOMEN: Distended and firm. Bowel sounds WNL non-tender on palpation. Can not appreciate any splenomegaly or hepatomegaly however difficult exam given his distention. Abdominal girth 57.5 inches midabdomen. No rebound tenderness or guarding 1. Abdominal swelling, generalized (R19.07) 2. Cirrhosis, nonalcoholic (HCC) (K74.60) 3. Splenomegaly (R16.1) - Abdominal distension noted on examination; differential includes ascites. - Ordered STAT CT scan of the abdomen to evaluate for ascites and other potential causes. - Ordered STAT blood work to assess liver function and other relevant parameters. - Discussed the importance of following up with gastroenterology and hematology - Will review results and coordinate further management based on findings. 4. Dark stools (R19.5) - Intermittent episodes of melena reported. - Provided stool kit for fecal occult blood test. - Advised patient to complete the stool test and return it promptly for analysis. Marli Cook APRN.BUSINESS OPERATIONS COORDINATOR Prescription instructions reviewed with patient as applicable. Patient advised if symptoms do not improve or if symptoms worsen sooner, to contact their primary care physician. Potential red flag symptoms discussed with the patient. Reviewed appropriate action plan to take if red flag symptoms occur. Patient agreeable to treatment plan. Medical Decision Making: Problems: Moderate: New problem with uncertain prognosis Data: Unique test(s) ordered: 3+ Risk: Moderate: Moderate risk from testing/treatment Medical Decision Making Level: 4 - Moderate documented [facility]25 NoteHNO ID: [id number] Author: MARLI COOK APRN.HAKAN Service: ? Author Type: Nurse Practitioner Type: Progress Notes Filed: 08/10/2024 14:48 Note Text: 08/10/2024 Patient presents with: Abdominal Pain: All over x2 months; increasingly getting worse Recording using [employer] software for draft documentation of the visit was discussed with the patient/authorized product sales representative; all questions welcomed and answered. Patient/authorized product sales representative agreed to proceed SUBJECTIVE: This is a 54 year old that is here today for Above Complaints.. Abdominal Pain: - Reports RUQ pain described as feeling like being tasered, occurring periodically. - Abdominal swelling noted, described as really hard. - Denies nausea, emesis, jaundice, hematemesis, or diarrhea. - Reports chills, but denies fevers. - Denies any other bleeding symptoms. - Bowel movements are regular, occurring daily. - Occasional black stools lasting 1-2 days, then returning to normal; no recent episodes. - Denies lincoln-colored stools or itching Weight Gain: - Hal noticed rapid weight gain. - Weight increased from 257 lbs to 267 lbs over the past few months. Left Foot Swelling: - Hal observed swelling in the left foot. - Continues to take Lovenox. Diabetes Mellitus: - Blood glucose levels decreased from 130 mg/dL to 110 mg/dL recently. - Currently taking Metformin. PAST MEDICAL HISTORY Diagnosis Date Abdominal pain, generalized Achilles tendon tear Adjustment disorder with depressed mood Bronchitis, mucopurulent recurrent (HCC) 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 Riggs Diabetes mellitus type II (HCC) DVT of popliteal vein (HCC) 2004 Embolism and thrombosis of unspecified site 01/2004 left, positive lupus anticoagulant- using Lovenox, Previously seeing Dr. Wong Esophageal varices (HCC) Hematuria work up in progress as of 09/24/04 Hepatomegaly Hypogonadism in male 2/[address] orchiectomy for testicular pain. Dr[address] Luna Hypothyroidism Dr. Luna-jagdish Left-sided muscle weakness intermittent, has had extensive work up Obesity MARC (obstructive sleep apnea) Seeing Dr. Yin, using CPAP Osteopenia of neck of left femur 06/18/2020 Other cirrhosis of liver (HCC) / BANEGAS. Refused liver biopsy PMH - PAST MEDICAL HISTORY OF scrotal swelling Pulmonary embolism (HCC) Recurrent deep vein thrombosis (DVT) (HCC) Retention of urine, unspecified Snoring Splenomegaly Thrombocytopenia Urethral stricture 2020 Urethral stricture s/p urethroplasty 06/2021. Vitamin D deficiency ALLERGIES Piperacillin, Vancocin [Vancomycin], Latex, and Sodium Hypochlorite Solution MEDICATIONS Current Outpatient Medications Medication Sig iv contrast (will be provided with radiology test) CT ABD/PEL -Inject, intravenously, once for 1 dose.No IV access, insert saline lock prior to the beginning of sedation, infusion, injection of imaging exam. Discontinue saline lock post exam. If Pt. has a central line or IVAD, may access for administration according to line specific nursing protocol. Once exam is complete flush line and de-access according to line specific nursing protocol in the CT contrast administration guidelines link. ipratropium-albuterol (DUONEB) 0.5 mg-3 mg(2.5 mg base)/3 mL nebu Inhale 3 mL as instructed every 4 hours as needed (wheezing). Use over 5-15minutes per nebulizer. benzonatate (TESSALON PERLE) 100 mg capsule Take 1-2 capsules by mouth three times a day as needed for cough. atorvastatin (LIPITOR) 10 mg tablet Take 1 tablet by mouth daily at bedtime. For cholesterol. levothyroxine (SYNTHROID) 100 mcg tablet Take 1 tablet by mouth once daily. lisinopril (ZESTRIL) 5 mg tablet Take 1 tablet by mouth once daily. metFORMIN (GLUCOPHAGE) 1,000 mg tablet Take 1 tablet by mouth two times a day with meals. . enoxaparin (LOVENOX) 120 mg/0.8 mL injection Inject 111 mg subcutaneously every 12 hours. blood sugar diagnostic (BLOOD GLUCOSE TEST) test strip Test blood sugar(s) 1 times daily. Dx: Type 2 DM - Controlled E11.9 Insulin: No doxepin capsule 10 mg Take 1 capsule by mouth at bedtime as needed (insomnia). Lancets Test blood sugar(s) 1 times daily. Dx: Type 2 DM - Controlled E11.9 Insulin: No acetaminophen (TYLENOL) 325 mg tablet Take 2 tablets by mouth every 6 hours as needed for pain. ACCU-CHEK GUIDE [place] GLUCOSE MTR USE TO TEST BLOOD SUGAR testosterone enanthate (DELATESTRYL) 200 mg/mL injection CPAP Patient would like to change DME closer to home. Needs mask and supplies. Current PAP device only 3 months old. Need download from device. Lifetime supplies. Syringe with Needle, Disp, 3 mL 22 gauge x 1 syrg Use as directed to inject testosterone once a month ALBUTEROL 90 MCG/ACTUATION AEROSOL INHALER Inhale two(2) puffs four(4) times a day for wheezing and shortness (more content not included)...[facility]06-11-2025 Telephone encounter Note* Telephone Encounter - Lupe Hammond RN - 08/10/2024 9:49 AM EDT Patient call in for abdominal discomfort and weight gain. Nurse Triage assessment completed with protocol recommending for disposition of see PCP in 4 hours.Patient scheduled to see Marli lockwood 08/10/2024. Care advice reviewed with patient, patient stated understanding. Patient advised to contact office or seek evaluation in urgent care or ER if symptoms persist or gets worse. Reason for Disposition [1] MILD-MODERATE pain AND [2] constant AND [3] present > 2 hours Answer Assessment - Initial Assessment Questions 1. LOCATION: Hurts on lower left and right abdomen 2. RADIATION Sometimes it goes toward back 3. ONSET: Has been going on for awhile 4. SUDDEN: Gradual Onset. 5. PATTERN Comes and Goes; Patient states that he wakes up with it. 6. SEVERITY: Rates pain 5-6 out of 10 7. RECURRENT SYMPTOM: Patient states that it has been off and on; Patient states that he is supposed to get testing done that he has not gotten done yet. 8. CAUSE: Liver issues 9. RELIEVING/AGGRAVATING FACTORS: Just lets pain go away. 10. OTHER SYMPTOMS: Gained 30-40 pounds in 2 weeks.; soft stool Protocols used: Abdominal Pain - [id number] [facility]06-11-[facility] Miscellaneous Notes* Telephone Encounter - Lupe Hammond RN - 08/10/2024 9:49 AM EDT Patient call in for abdominal discomfort and weight gain. Nurse Triage assessment completed with protocol recommending for disposition of see PCP in 4 hours.Patient scheduled to see Marli today 08/10/2024. Care advice reviewed with patient, patient stated understanding. Patient advised to contact office or seek evaluation in urgent care or ER if symptoms persist or gets worse. Reason for Disposition [1] MILD-MODERATE pain AND [2] constant AND [3] present > 2 hours Answer Assessment - Initial Assessment Questions 1. LOCATION: Hurts on lower left and right abdomen 2. RADIATION Sometimes it goes toward back 3. ONSET: Has been going on for awhile 4. SUDDEN: Gradual Onset. 5. PATTERN Comes and Goes; Patient states that he wakes up with it. 6. SEVERITY: Rates pain 5-6 out of 10 7. RECURRENT SYMPTOM: Patient states that it has been off and on; Patient states that he is supposed to get testing done that he has not gotten done yet. 8. CAUSE: Liver issues 9. RELIEVING/AGGRAVATING FACTORS: Just lets pain go away. 10. OTHER SYMPTOMS: Gained 30-40 pounds in 2 weeks.; soft stool Protocols used: Abdominal Pain - [id number] documented in this encounterToledo [facility]04-21-2025 Progress note* Result Encounter Note - Krystin Levi APRN.CNS - 06/20/2024 4:05 PM EDT small focus of atelectasis versus infiltrate LLL [facility]04-21-2025 Miscellaneous Notes* Result Encounter Note - Krystin Levi APRN.CNS - 06/20/2024 4:05 PM EDT small focus of atelectasis versus infiltrate LLL documented in this encounterToledo Hospital04-21-2025 History of Present illness Narrative* Brianne Salter RT(R) - 06/20/2024 3:40 PM EDT Radiology Service Progress Note PATIENT NAME: Hal Blancas DATE OF SERVICE: June 20, 2024 TIME: 3:41 PM PATIENT IDENTITY VERIFICATION COMPLETED USING TWO (2) IDENTIFIERS: Name and Date of confirmedby patient verbally. FALL SCREENING: Has the patient had 2 falls in the last year or 1 fall with injury or currently using an Ambulatory Assistive Device (Walker, Cane, Wheelchair, Crutches, etc.)? No PATIENT GENDER DATA: Assigned male at PATIENT RELEVANT IMPLANT DATA REVIEWED: Not Applicable PATIENT PRESENTS WITH AN IMPLANTABLE OR ATTACHED COKE OVEN MASON: No RADIOLOGY DEPARTMENT: General X-ray: Exam(s) Completed: Chest X-Ray PERIPHERAL IV DATA: Not applicable SIGNED BY: RT Sera(R) June 20, 2024 3:41 PM documented in this encounterToledo Hospital04-21-2025 NoteHNO ID: [id number] Author: BRIANNE SALTER RT(Angeline) Service: Radiology Author Type: Technologist Type: Progress Notes Filed: 06/20/2024 15:46 Note Text: Radiology Service Progress Note PATIENT NAME: Hal Blancas DATE OF SERVICE: June 20, 2024 TIME: 3:41 PM PATIENT IDENTITY VERIFICATION COMPLETED USING TWO (2) IDENTIFIERS: Name and Date of confirmed by patient verbally. FALL SCREENING: Has the patient had 2 falls in the last year or 1 fall with injury or currently using an Ambulatory Assistive Device (Walker, Cane, Wheelchair, Crutches, etc.)? No PATIENT GENDER DATA: Assigned male at PATIENT RELEVANT IMPLANT DATA REVIEWED: Not Applicable PATIENT PRESENTS WITH AN IMPLANTABLE OR ATTACHED COKE OVEN MASON: No RADIOLOGY DEPARTMENT: General X-ray: Exam(s) Completed: Chest X-Ray PERIPHERAL IV DATA: Not applicable SIGNED BY: RT Sera(R) June 20, 2024 3:41 [facility]04-21-2025 NoteHNO ID: [id number] Author: KRYSTIN LEVI APRN.LATRINE CLEANER Service: ? Author Type: Nurse Specialist Type: Progress Notes Filed: 06/20/2024 15:36 Note Text: SUBJECTIVE Hal Blancas is a 54 year old male who presents with 2 weeks of symptoms, 4 days of cough that are stable. Symptoms include: Fever (>=100.4F): No or Chills: No Cough: Yes with wheezing, difficult to control, interrupting sleep Shortness of breath: No or Difficulty breathing: No Fatigue: Yes Muscle aches: No Headache: No New loss of smell or taste: No Sore throat: No Nasal congestion: Yes or Rhinorrhea: Yes Nausea: Yes or Vomiting: No Diarrhea: No OTC meds/remedies that patient has tried: Mucinex, OTC cough syrup, and OTC cold medicine. High risk category assessment Hypertension Exposures: Sick contacts? No Family or close contacts with confirmed/probable COVID-19 in last 14 days? No He reports that he quit smoking about 36 years ago. His smoking use included cigarettes. He started smoking about 38 years ago. He has a 4 pack-year smoking history. He has never used smokeless tobacco. OBJECTIVE BP 106/66 Pulse 85 Temp 36.4 ?C (97.5 ?F) Resp 16 Wt 117 kg (257 lb 15 oz) SpO2 96% BMI 33.46 kg/m? PHYSICAL EXAM: BP 106/66 Pulse 85 Temp 36.4 ?C (97.5 ?F) Resp 16 Wt 117 kg (257 lb 15 oz) SpO2 96% BMI 33.46 kg/m? General appearance: tired/ill appearing, alert, cooperative, pleasant, in no acute distress Head: Normocephalic Eyes: conjunctiva/corneas normal Ears: R TM - clear with good landmarks, nl light reflex, L TM - clear with good landmarks, nl light reflex Nose: clear Oropharynx: moist without lesions, mild erythema to GPA, no exudate, poor dentition Neck: supple and small, benign anterior cervical nodes bilaterally Heart: regular rate and rhythm, without murmur Lungs: clear to auscultation, without rales or wheeze, good air exchange, TTP left lateral/posterior lower ribs ASSESSMENT/PLAN (R05.1) Acute cough (primary encounter diagnosis) ASSESSMENT/PLAN: 1. Acute cough - ICD9: 786.2, ICD10: R05.1 Recommend supportive care, plenty of rest and push fluids - IPRATROPIUM 0.5 MG-ALBUTEROL 3 MG (2.5 MG BASE)/3 ML NEBULIZATION SOLN - BENZONATATE 100 MG CAPSULE - XR CHEST 2V FRONTAL/LAT Krystin Levi APRN.CNS Medical Decision Making: Problems: Low: Acute, uncomplicated illness or injury Data: Unique test(s) ordered: 1 Risk: Moderate: Drug management Medical Decision Making Level: [facility] - [facility] History of Present illness Narrative* Krystin Levi APRN.LATRINE CLEANER - 06/20/2024 3:18 PM EDT SUBJECTIVE Hal Blancas is a 54 year old male who presents with 2 weeks of symptoms, 4 days of cough that are stable. Symptoms include: Fever (>=100.4F): No or Chills: No Cough: Yes with wheezing, difficult to control, interrupting sleep Shortness of breath: No or Difficulty breathing: No Fatigue: Yes Muscle aches: No Headache: No New loss of smell or taste: No Sore throat: No Nasal congestion: Yes or Rhinorrhea: Yes Nausea: Yes or Vomiting: No Diarrhea: No OTC meds/remedies that patient has tried: Mucinex, OTC cough syrup, and OTC cold medicine. High risk category assessment Hypertension Exposures: Sick contacts? No Family or close contacts with confirmed/probable COVID-19 in last 14 days? No He reports that he quit smoking about 36 years ago. His smoking use included cigarettes. He startedsmoking about 38 years ago. He has a 4 pack-year smoking history. He has never used smokeless tobacco. OBJECTIVE BP 106/66 Pulse 85 Temp 36.4 C (97.5 F) Resp 16 Wt 117 kg (257 lb 15 oz) SpO2 96% BMI 33.46 kg/m PHYSICAL EXAM: BP 106/66 Pulse 85 Temp 36.4 C (97.5 F) Resp 16 Wt 117 kg (257 lb 15 oz) SpO2 96% BMI 33.46 kg/m General appearance: tired/ill appearing, alert, cooperative, pleasant, in no acute distress Head: Normocephalic Eyes: conjunctiva/corneas normal Ears: R TM - clear with good landmarks, nl light reflex, L TM - clear with good landmarks, nl lightreflex Nose: clear Oropharynx: moist without lesions, mild erythema to GPA, no exudate, poor dentition Neck: supple and small, benign anterior cervical nodes bilaterally Heart: regular rate and rhythm, without murmur Lungs: clear to auscultation, without rales or wheeze, good air exchange, TTP left lateral/posterior lower ribs ASSESSMENT/PLAN (R05.1) Acute cough (primary encounter diagnosis) ASSESSMENT/PLAN: 1. Acute cough - ICD9: 786.2, ICD10: R05.1 Recommend supportive care, plenty of rest and push fluids - IPRATROPIUM 0.5 MG-ALBUTEROL 3 MG (2.5 MG BASE)/3 ML NEBULIZATION SOLN - BENZONATATE 100 MG CAPSULE - XR CHEST 2V FRONTAL/LAT Krystin Levi APRN.CNS Medical Decision Making: Problems: Low: Acute, uncomplicated illness or injury Data: Unique test(s) ordered: 1 Risk: Moderate: Drug management Medical Decision Making Level: 3 - Low documented in this encounterT[facility]04-21-2025 Telephone encounter Note * Telephone Encounter - Becca Minor RN - 06/20/2024 12:17 PM EDT Patient calls for cough for about two weeks. SOB with exertion and sometimes at rest. Wheezing at times. Afebrile. Nurse triage completed. Protocol recommends see provider within 4 hours. No appointments available in [facility]. Scheduled with INTM. Care advice reviewed with verbalized understanding. Reason for Disposition [1] MILD difficulty breathing (e.g., minimal/no SOB at rest, SOB with walking, pulse <100) AND [2] still present when not coughing Answer Assessment - Initial Assessment Questions 1. ONSET: Approximately two weeks ago, Patient started with a cough and fatigue. Cough continues. Patient reports wheezing at times. SOB with exertion and sometimes at rest. Right side/rib pain with coughing. 2. SEVERITY: Cough doesn't seem to be getting any better 3. SPUTUM: No 4. HEMOPTYSIS: No 5. DIFFICULTY BREATHING: - MILD: No SOB at rest, mild SOB with walking, speaks normally in sentences, can lie down, no retractions, pulse < 100. 6. FEVER: No 7. CARDIAC HISTORY: No history of heart attack, congestive heart failure 8. LUNG HISTORY: History of PE. No history of asthma, emphysema 9. PE RISK FACTORS: No recent major surgery, recent prolonged travel, bedridden 10. OTHER SYMPTOMS: Wheezing. Chest pain bilateral ribs with coughing. No runny nose. 11.TRAVEL: No travel history, exposures Protocols used: Cough - Acute End-Hstgmczcrs-QCMYN-AH [facility]04-21-2025 Miscellaneous Notes* Telephone Encounter - Becca Minor RN - 06/20/2024 12:17 PM EDT Patient calls for cough for about two weeks. SOB with exertion and sometimes at rest. Wheezing at times. Afebrile. Nurse triage completed. Protocol recommends see provider within 4 hours. No appointments available in [facility]. Scheduled with INTM. Care advice reviewed with verbalized understanding. Reason for Disposition [1] MILD difficulty breathing (e.g., minimal/no SOB at rest, SOB with walking, pulse <100) AND [2] still present when not coughing Answer Assessment - Initial Assessment Questions 1. ONSET: Approximately two weeks ago, Patient started with a cough and fatigue. Cough continues. Patient reports wheezing at times. SOB with exertion and sometimes at rest. Right side/rib pain with coughing. 2. SEVERITY: Cough doesn't seem to be getting any better 3. SPUTUM: No 4. HEMOPTYSIS: No 5. DIFFICULTY BREATHING: - MILD: No SOB at rest, mild SOB with walking, speaks normally in sentences, can lie down, no retractions, pulse < 100. 6. FEVER: No 7. CARDIAC HISTORY: No history of heart attack, congestive heart failure 8. LUNG HISTORY: History of PE. No history of asthma, emphysema 9. PE RISK FACTORS: No recent major surgery, recent prolonged travel, bedridden 10. OTHER SYMPTOMS: Wheezing. Chest pain bilateral ribs with coughing. No runny nose. 11.TRAVEL: No travel history, exposures Protocols used: Cough - Acute Ugd-Glzinifbtz-KQDDM-AH documented in this encounterToledo Hospital02-05-2025 History of Present illness Narrative* Marli Cook APRN.BUSINESS OPERATIONS COORDINATOR - 04/06/2024 9:40 AM EST 04/05/2024 Patient presents with: F/U 6 months SUBJECTIVE: This is a 53 year old that is here today for Above Complaints. Follows with Dr. Raad Luna, endocrinology for hx of diabetes, hypogonadism, and hypothyroidism. Taking medications as prescribed without side effects. Last follow-up on 11/09/2023. No medication changes made at that time. No follow-up scheduled at this time. He reports Dr. Luna has blood work ordered for him and he will be completing today. Checks Blood sugars evero other day with readings of 105-130. Denies visual changes, polyuria or polydipsia Follows with hematology for hx of splenomegaly, thrombocytopenia, neutropenia and lupus anticoagulant disorder. Last office visit on 05/24/2023. Follow-up has been recommended but not scheduled as ofyet. Dr. Wong also wanted him to follow-up with GI regarding cirrhosis, portal HTN and splenomegaly however patient reports they want him to have EGD and surgery and he does not want to do that at this time. Taking Lovenox as prescribed. Denies bleeding symptoms of hematochezia, melana, hematemesis, hemoptysis or hematuria MARC: using CPAP nightly. For the most part feels refreshed in the morning. Uses Doxepin to help with insomnia which doesn't always help HYPERLIPIDEMIA: Patient is taking medications: Yes. Patient is watching diet: No. Patient denies myalgias: Yes. 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 Riggs Diabetes mellitus type II (HCC) DVT of popliteal vein (HCC) 2004 Embolism and thrombosis of unspecified site 01/2004 left, positive lupus anticoagulant- using Lovenox, Previously seeing Dr. Wong Esophageal varices (HCC) Hematuria work up in progress as of 09/24/04 Hepatomegaly Hypogonadism in male 2/[address] testicular pain[address] Luna Hypothyroidism Dr. Luna-jagdish Left-sided muscle weakness intermittent, has had extensive work up Obesity MARC (obstructive sleep apnea) Seeing Dr. Yin, using CPAP Osteopenia of neck of left femur 06/18/2020 Other cirrhosis of liver (HCC) / BANEGAS. Refused liver biopsy PMH - PAST MEDICAL HISTORY OF scrotal swelling Pulmonary embolism (HCC) Recurrent deep vein thrombosis (DVT) (HCC) Retention of urine, unspecified Snoring Splenomegaly Thrombocytopenia (HCC) Urethral stricture 2020 Urethral stricture s/p urethroplasty 06/2021. Vitamin D deficiency ALLERGIES Piperacillin, Vancocin [Vancomycin], Latex, and Sodium Hypochlorite Solution MEDICATIONS Current Outpatient Medications Medication Sig atorvastatin (LIPITOR) 10 mg tablet Take 1 tablet by mouth daily at bedtime. For cholesterol. doxepin capsule 10 mg Take 1 capsule by mouth at bedtime as needed (insomnia). enoxaparin (LOVENOX) 120 mg/0.8 mL injection Inject 111 mg subcutaneously every 12 hours. levothyroxine (SYNTHROID) 100 mcg tablet Take 1 tablet by mouth once daily. lisinopril (ZESTRIL) 5 mg tablet Take 1 tablet by mouth once daily. metFORMIN (GLUCOPHAGE) 1,000 mg tablet Take 1 tablet by mouth two times a day with meals. . blood sugar diagnostic (BLOOD GLUCOSE TEST) test strip Test blood sugar(s) 1 times daily. Dx: Type 2 DM - Controlled E11.9 Insulin: No ipratropium-albuterol (DUONEB) 0.5 mg-3 mg(2.5 mg base)/3 mL nebu Inhale 3 mL as instructed every 4hours as needed (wheezing). Use over 5-15minutes per nebulizer. acetaminophen (TYLENOL) 325 mg tablet Take 2 tablets by mouth every 6 hours as needed for pain. ACCU-CHEK GUIDE [place] GLUCOSE MTR USE TO TEST BLOOD SUGAR testosterone enanthate (DELATESTRYL) 200 mg/mL injection Lancets lancets Test blood sugar(s) 1 times daily. Dx: Type 2 DM - Controlled E11.9 Insulin: No CPAP Patient would like to change DME closer to home. Needs mask and supplies. Current PAP device only 3 months old. Need download from device. Lifetime supplies. Syringe with Needle, Disp, 3 mL 22 gauge x 1 syrg Use as directed to inject testosterone once a month ALBUTEROL 90 MCG/ACTUATION AEROSOL INHALER Inhale two(2) puffs four(4) times a day for wheezing andshortness of breath. No current facility-administered medications for this visit. Medications and allergies reviewed by this provider. SOCIAL HISTORY Social History Tobacco Use Smoking status: Former Current packs/day: 0.00 Average packs/day: 2.0 packs/day for 2.0 years (4.0 ttl pk-yrs) Types: Cigarettes Start date: 07/03/1985 Quit date: 07/04/1987 Years since quittin.7 Smokeless tobacco: Never Vaping Use Vaping status: Never Used Substance Use Topics Alcohol use: Yes Comment: 1 drink every 3 months Drug use: No REVIEW OF SYSTEMS All other reviewed and negative other than HPI. OBJECTIVE: BP 98/66 Pulse 74 Resp 18 Wt 110.6 kg (243 lb 13.3 oz) SpO2 98% BMI 31.63 kg/m . Vital signs reviewed by this provider. APPEARANCE Well appearing, alert, in no acute distress, well-hydrated, well nourished. EYES conjunctiva and sclera normal. HEART RRR with normal S1 and S2, no murmurs, no gallops, no JVD appreciated LUNG clear to auscultation. No wheezes, rhonchi or rales EXTREMITIES Extremities normal, No deformities, No skin discoloration, No edema SKIN Skin color, texture, turgor normal, no suspicious rashes or lesions to exposed skin Latest Ref [facility] 09/11/2023 WBC 3.70 - 11.00 k/uL 2.52 (L) RBC 4.20 - 6.00 m/uL 4.27 Hemoglobin 13.0 - 17.0 g/dL 12.6 (L) Hematocrit 39.0 - 51.0 % 36.0 (L) MCV 80.0 - 100.0 fL 84.3 MCH 26.0 - 34.0 pg 29.5 MCHC 30.5 - 36.0 g/dL 35.0 RDW-CV 11.5 - 15.0 % 15.9 (H) Platelet Count 150 - 400 k/uL 58 (L) MPV 9.0 - 12.7 fL 8.8 (L) Neut% % 56.7 Abs Neut (ANC) 1.45 - 7.50 k/uL 1.43 (L) Lymph% % 29.0 Abs Lymph 1.00 - 4.00 k/uL 0.73 (L) [place]% % 9.5 Abs [place] <0.87 k/uL 0.24 Eosin% % 4.4 Abs Eosin <0.46 k/uL 0.11 Baso% % 0.4 Abs Baso <0.11 k/uL <0.03 Immature Gran % % 0.0 IMMATURE GRANS (ABS) <0.10 k/uL <0.03 NRBC /100 WBC 0.0 Absolute nRBC <0.01 k/uL <0.01 DTYPE Auto Protein, Total 6.3 - 8.0 g/dL 5.9 (L) Albumin 3.9 - 4.9 g/dL 3.9 Calcium 8.5 - 10.2 mg/dL 9.2 Bilirubin, Total 0.2 - 1.3 mg/dL 1.7 (H) Alkaline Phosphatase 38 - 113 U/L 101 AST 14 - 40 U/L 22 ALT 10 - 54 U/L 18 Glucose 74 - 99 mg/dL 122 (H) BUN 9 - 24 mg/dL 12 Creatinine 0.73 - 1.22 mg/dL 0.72 (L) Sodium 136 - 144 mmol/L 137 Potassium 3.7 - 5.1 mmol/L 4.0 Chloride 98 - 107 mmol/L 105 CO2 22 - 30 mmol/L 23 Anion Gap 8 - 15 mmol/L 9 eGFR >=60 mL/min/1.73m 109 Creatinine, Ur Random (UCRR) 20.0 - 300.0 mg/dL 254.0 Albumin, Urine Random mg/L 22.1 Albumin/Creat Ratio <30 mg/g 9 Hemoglobin A1C 4.3 - 5.6 % 5.3 Estimated Average Glucose mg/dL 105 Legend: (L) Low (H) High Anxiety Screening Never done Dilated Retinal Exam due on 04/03/2022 Influenza Vaccine(1) due on 11/01/2023 Covid-19 Vaccine( season) due on 11/01/2023 HbA1C due on 03/13/2024 LDL Cholesterol due on 03/18/2024 Hepatitis B Vaccine(2 of 3 - Hep B Twinrix 3-dose series) due on 09/09/2024 Hepatitis A Vaccine(2 of 3 - Hep A Twinrix risk 3-dose series) due on 09/09/2024 Shingrix Vaccine(1 of 2) due on 09/09/2024 Diabetic Foot Exam due on 09/09/2024 Urine Albumin:Creatinine Ratio due on 09/10/2024 Annual PCP Team Chronic Disease Visit due on 04/06/2025 Colorectal Cancer Screening due on 03/13/2026 DTaP,Tdap,Td Vaccine(3 - Td or Tdap) due on 02/18/2028 Hepatitis C Screening Completed HIV Screening Completed Pneumococcal Vaccine: 50+ Completed ASSESSMENT/PLAN: 1. Hyperlipidemia, unspecified hyperlipidemia type - ICD9: 272.4, ICD10: E78.5 (primary diagnosis) - Control undetermined, due for labs - Continue current medications - Counseled on healthy diet and regular exercise - Discussed need for and benefit of weight loss. BMI 31.63 kg/(m^2) - Follow up in 6 months, sooner should any other issues arise. - ATORVASTATIN 10 MG TABLET 2. Diabetes mellitus type II (HCC) - ICD9: 250.00, ICD10: E11.9 - Control undetermined, due for labs - Continue current medications - Statin prescribed - atorvastatin - Blood glucose monitoring on a once daily schedule - Counseled on healthy diet and regular exercise - Discussed need for and benefit of weight loss. BMI 31.63 kg/(m^2) - Follow up in 6 months, sooner should any other issues arise. - LISINOPRIL 5 MG TABLET - METFORMIN 1,000 MG TABLET - BLOOD SUGAR DIAGNOSTIC STRIPS - follow-up with Dr. Luna as recommended 3. Encounter for immunization - ICD9: V03.89, ICD10: Z23 - INFLUENZA VACCINE, AGE 6MO-64YR, TRIVALENT (AFLURIA, FLULAVAL, FLUVIRIN, FLUZONE) 4. Hypothyroidism, unspecified type - ICD9: 244.9, ICD10: E03.9 - Instructed patient on importance of taking on an empty stomach either first thing in the morning or at bedtime. - check TSH today - continue current dose of Synthroid 0.100 mg - Follow up in 6 months and follow-up with Dr. Luna as recommended - LEVOTHYROXINE 100 MCG TABLET 5. Cirrhosis, nonalcoholic (HCC) - ICD9: 571.5, ICD10: K74.60 - encouraged patient to follow-up with GI - discussed risks of not following up, verbalizes understanding 6. Splenomegaly - ICD9: 789.2, ICD10: R16.1 - encouraged patient to follow-up with GI - discussed risks of not following up, verbalizes understanding 7. Neutropenia, unspecified type (HCC) - ICD9: 288.00, ICD10: D70.9 - obtain CBC with diff today - encouraged follow-up with Dr. Wong 8. MARC (obstructive sleep apnea) - ICD9: 327.23, ICD10: G47.33 - continue nightly use 9. Lupus anticoagulant disorder (HCC) - ICD9: 289.81, ICD10: D68.62 - plan as in #7 - ENOXAPARIN 120 MG/0.8 ML SUBCUTANEOUS SYRINGE 10. Recurrent deep vein thrombosis (DVT) (HCC) - ICD9: 453.40, ICD10: I82.409 - no reoccurrence - ENOXAPARIN 120 MG/0.8 ML SUBCUTANEOUS SYRINGE 11. Chronic insomnia - ICD9: 780.52, ICD10: F51.04 - continue to use for sleep, if not helping would recommend he see sleep medicine for possible adjustment of settings - DOXEPIN 10 MG CAPSULE Marli Barahonalogbentley, HOTHOUSE WORKER.BUSINESS OPERATIONS COORDINATOR Prescription instructions reviewed with patient as applicable. Patient advised if symptoms do not improve or if symptoms worsen sooner, to contact their primary care physician. Potential red flag symptoms discussed with the patient. Reviewed appropriate action plan to take if red flag symptoms occur. Patient agreeable to treatment plan. Medical Decision Making: Problems: Moderate: 2+ stable chronic illnesses Risk: Moderate: Moderate risk from testing/treatment and Drug management Medical Decision Making Level: 4 - Moderate [facility] NoteHNO ID: [id number] Author: MARLI COOK APRN.HAKAN Service: ? Author Type: Nurse Practitioner Type: Progress Notes Filed: 08/10/2024 13:33 Note Text: 04/05/2024 Patient presents with: F/U 6 months SUBJECTIVE: This is a 53 year old that is here today for Above Complaints. Follows with Dr. Raad Luna, endocrinology for hx of diabetes, hypogonadism, and hypothyroidism. Taking medications as prescribed without side effects. Last follow-up on 11/09/2023. No medication changes made at that time. No follow-up scheduled at this time. He reports Dr. Luna has blood work ordered for him and he will be completing today. Checks Blood sugars evero other day with readings of 105-130. Denies visual changes, polyuria or polydipsia Follows with hematology for hx of splenomegaly, thrombocytopenia, neutropenia and lupus anticoagulant disorder. Last office visit on 05/23/2022. Follow-up has been recommended but not scheduled as of yet. Dr. Wong also wanted him to follow-up with GI regarding cirrhosis, portal HTN and splenomegaly however patient reports they want him to have EGD and surgery and he does not want to do that at this time. Taking Lovenox as prescribed. Denies bleeding symptoms of hematochezia, melana, hematemesis, hemoptysis or hematuria MARC: using CPAP nightly. For the most part feels refreshed in the morning. Uses Doxepin to help with insomnia which doesn't always help HYPERLIPIDEMIA: Patient is taking medications: Yes. Patient is watching diet: No. Patient denies myalgias: Yes. 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 Riggs Diabetes mellitus type II (HCC) DVT of popliteal vein (HCC) 2004 Embolism and thrombosis of unspecified site 01/2004 left, positive lupus anticoagulant- using Lovenox, Previously seeing Dr. Wong Esophageal varices (HCC) Hematuria work up in progress as of 09/24/04 Hepatomegaly Hypogonadism in male 2/[address] pain[address] Luna Hypothyroidism Dr. Luna-jagdish Left-sided muscle weakness intermittent, has had extensive work up Obesity MARC (obstructive sleep apnea) Seeing Dr. Yin, using CPAP Osteopenia of neck of left femur 06/18/2020 Other cirrhosis of liver (HCC) / BANEGAS. Refused liver biopsy PMH - PAST MEDICAL HISTORY OF scrotal swelling Pulmonary embolism (HCC) Recurrent deep vein thrombosis (DVT) (HCC) Retention of urine, unspecified Snoring Splenomegaly Thrombocytopenia (HCC) Urethral stricture 2020 Urethral stricture s/p urethroplasty 06/2021. Vitamin D deficiency ALLERGIES Piperacillin, Vancocin [Vancomycin], Latex, and Sodium Hypochlorite Solution MEDICATIONS Current Outpatient Medications Medication Sig atorvastatin (LIPITOR) 10 mg tablet Take 1 tablet by mouth daily at bedtime. For cholesterol. doxepin capsule 10 mg Take 1 capsule by mouth at bedtime as needed (insomnia). enoxaparin (LOVENOX) 120 mg/0.8 mL injection Inject 111 mg subcutaneously every 12 hours. levothyroxine (SYNTHROID) 100 mcg tablet Take 1 tablet by mouth once daily. lisinopril (ZESTRIL) 5 mg tablet Take 1 tablet by mouth once daily. metFORMIN (GLUCOPHAGE) 1,000 mg tablet Take 1 tablet by mouth two times a day with meals. . blood sugar diagnostic (BLOOD GLUCOSE TEST) test strip Test blood sugar(s) 1 times daily. Dx: Type 2 DM - Controlled E11.9 Insulin: No ipratropium-albuterol (DUONEB) 0.5 mg-3 mg(2.5 mg base)/3 mL nebu Inhale 3 mL as instructed every 4 hours as needed (wheezing). Use over 5-15minutes per nebulizer. acetaminophen (TYLENOL) 325 mg tablet Take 2 tablets by mouth every 6 hours as needed for pain. ACCU-CHEK GUIDE ME GLUCOSE MTR USE TO TEST BLOOD SUGAR testosterone enanthate (DELATESTRYL) 200 mg/mL injection Lancets lancets Test blood sugar(s) 1 times daily. Dx: Type 2 DM - Controlled E11.9 Insulin: No CPAP Patient would like to change DME closer to home. Needs mask and supplies. Current PAP device only 3 months old. Need download from device. Lifetime supplies. Syringe with Needle, Disp, 3 mL 22 gauge x 1 syrg Use as directed to inject testosterone once a month ALBUTEROL 90 MCG/ACTUATION AEROSOL INHALER Inhale two(2) puffs four(4) times a day for wheezing and shortness of breath. No current facility-administered medications for this visit. Medications and allergies reviewed by this provider. SOCIAL HISTORY Social History Tobacco Use Smoking status: Former Current packs/day: 0.00 Average packs/day: 2.0 packs/day for 2.0 years (4.0 ttl pk-yrs) Types: Cigarettes Start date: 07/03/1985 Quit date: 07/04/1987 Years since quittin.7 Smokeless tobacco: Never Vaping Use (more content not included)...[facility]02-05-2025 Telephone encounter Note* Telephone Encounter - Dexter Wong DO - 04/06/2024 8:08 AM EST If he is not able to follow-up with me, then he should have lab work ordered by Dr. Urias's team. Dexter Wong DO [facility]02-05-[facility]25 Miscellaneous Notes* Telephone Encounter - Dexter Wong DO - 04/06/2024 8:08 AM EST If he is not able to follow-up with me, then he should have lab work ordered by Dr. Urias's team. Dexter Wong DO documented [facility]24 Telephone encounter Note * Telephone Encounter - Lupe Hammond RN - 09/17/2023 12:08 PM EDT Patient notified of results and provider's instructions. Patient verbalizes understanding. Lupe Hammond RN [facility]07-18-[facility] Miscellaneous Notes* Telephone Encounter - Lupe Hammond RN - 09/17/2023 12:08 PM EDT Patient notified of results and provider's instructions. Patient verbalizes understanding. Lupe Hammond RN * Telephone Encounter - Nighat Tapia MA - 09/17/2023 11:34 AM EDT Message left for pt to call back for results. Nighat Tapia MA * Telephone Encounter - Nighat Tapia MA - 09/17/2023 11:33 AM EDT ----- Message from Julián Urias MD sent at 09/17/2023 9:06 AM EDT ----- Diabetes well controlled. Urine studies are normal. Blood counts show continued low platelets in the 50's with low WBC and mild anemia. Patient is due for f/u with hematology and GI and should schedule OV with both. Protein levels slightly low. Recommend increased protein intake in his diet. Other labs unremarkable. [facility]24 Telephone encounter Note * Telephone Encounter - Nighat Tapia MA - 09/17/2023 11:34 AM EDT Message left for pt to call back for results. Nighat Tapia MA [facility]07-[facility] Telephone encounter Note* Telephone Encounter - Nighat Tapia MA - 09/17/2023 11:33 AM EDT ----- Message from Julián Urias MD sent at 09/17/2023 9:06 AM EDT ----- Diabetes well controlled. Urine studies are normal. Blood counts show continued low platelets in the 50's with low WBC and mild anemia. Patient is due for f/u with hematology and GI and should schedule OV with both. Protein levels slightly low. Recommend increased protein intake in his diet. Other labs unremarkable. [facility]07-[facility] History of Present illness Narrative* Julián Urias MD - 09/10/2023 9:00 AM EDT Chief Complaint Patient presents with: Physical HPI Hal Blancas is a 53 year old male who presents here today for Above Complaints. Patient following up with Endocrinology Dr. Raad Luna for his diabetes, hypothyroidism and hypogonadism with last OV in December with recommendation to f/u in 1 year. Taking metformin as prescribed without side effects. Checking sugars 1-2 times per week with readings in the 100-126 range fasting. Denies worsening DM symptoms or hypoglycemia. Last OV with optho more than 1 year ago. It has been more than a year since patient has followed up with Dr. Wong for history of thrombocytopenia, spenomegaly, neutropenia and lupus anticoagulant disorder. After their last OV, his CT of the abd/pelvis showed cirrhotic changes to his liver with portal HTN and splenomegaly with extensive varices and mesenteric + omental edema. Was recommended to f/u with GI Dr. Riggs for repeat EGD as he is high risk for bleeding from varices with his anticoagulation for history off multiple VTE. Patient has not followed up on these recommendations. He is taking Lovenox BID as directed without bleeding symptoms including: hematochezia, melena, hemopytsis, hematemesis, hematuria. Does not want help with scheduling appointment with specialists today. MARC on CPAP: Patient states that he is compliant with his CPAP on a nightly basis. Occasionally hasto take his mask off in the night because he feels like he cannot breathe. Takes about 15 minutes for the machine to reset itself. Denies snoring or daytime somnolence. Has doxepin he uses about 3 nights per week to help with insomnia. Up to date on colon cancer screening. Overdue for EGD to monitor esophageal varices. Refusing vaccinations including Hep A and B today. Past medical history, appointments, medications, allergies reviewed. 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 Wong Hematuria work up in progress as of 09/24/04 Hepatomegaly Hypogonadism in male 2/[address] testicular pain. Dr[address] Luna Hypothyroidism Dr. Luna-endo Left-sided muscle weakness intermittent, has had extensive work up Obesity MARC (obstructive sleep apnea) Seeing Dr. Yin, using CPAP Osteopenia of neck of left femur 06/18/2020 Other cirrhosis of liver (HCC) 2/ BANEGAS. Refused liver biopsy PMH - PAST MEDICAL HISTORY OF scrotal swelling Pulmonary embolism (HCC) Recurrent deep vein thrombosis (DVT) (HCC) Retention of urine, unspecified Snoring Splenomegaly Thrombocytopenia (HCC) Urethral stricture 2020 Urethral stricture s/p urethroplasty 06/2021. Vitamin D deficiency Previous Surgical History PAST SURGICAL HISTORY Procedure Laterality Date COLONOSCOPY 2009 COLONOSCOPY FLX DX W/COLLJ SPEC WHEN PFRMD 03/13/2021 1 small polyp-repeat in 5 years ESOPHAGOGASTRODUODENOSCOPY TRANSORAL DIAGNOSTIC 03/13/2021 grade II esophageal varices EXPLORATORY LAPAROTOMY CELIOTOMY W/WO BIOPSY SPX 03/2005 Laparotomy, exp; incidental appendectomy IVC FILTER PERCUTANEOUS 06/2004 IVC FILTER SURGICAL LAPAROSCOPY SURG CHOLECYSTECTOMY 06/08/2014 PAST SURGICAL HISTORY OF 1975 finger rt hand table saw dipj PAST SURGICAL HISTORY OF 11/2005 Bladder pacemaker PAST SURGICAL HISTORY OF Bilateral bilateral achilles repair PAST SURGICAL HISTORY OF 2006, 2007 bilateral orchiectomy, secondary to pain PAST SURGICAL HISTORY OF 2020 placement of suprapubic catheter PAST SURGICAL HISTORY OF N/A 07/16/2021 urethroplasty with BMG Family History FAMILY HISTORY Problem Relation Age of Onset Colon Cancer Mother Diabetes Father unsure of how old Coronary Artery Disease Father Hypertension Father Diabetes Sister other (sleep apnea) Sister Diabetes Sister other (sleep apnea) Sister other (Trisomy 22) Daughter other (Trisomy 22) Son Patient Allergies ALLERGIES Allergen Reactions Piperacillin Rash Vancocin [Vancomyci* Rash Latex Rash Sodium Hypochlorite* Rash Current Medications Current Outpatient Medications on File Prior to Visit Medication Sig doxepin capsule 10 mg Take 1 capsule by mouth daily at bedtime. (Patient taking differently: Take 10 mg by mouth as needed.) ipratropium-albuterol (DUONEB) 0.5 mg-3 mg(2.5 mg base)/3 mL nebu Inhale 3 mL as instructed every 4hours as needed (wheezing). Use over 5-15minutes per nebulizer. enoxaparin (LOVENOX) 120 mg/0.8 mL injection Inject 0.7 mL subcutaneously every 12 hours. testosterone enanthate (DELATESTRYL) 200 mg/mL injection CPAP Patient would like to change DME closer to home. Needs mask and supplies. Current PAP device only 3 months old. Need download from device. Lifetime supplies. blood sugar diagnostic (BLOOD GLUCOSE TEST) test strip Test blood sugar(s) 1 times daily. Dx: Type 2 DM - Controlled E11.9 Insulin: No atorvastatin (LIPITOR) 10 mg tablet Take 1 tablet by mouth daily at bedtime. For cholesterol. metFORMIN (GLUCOPHAGE) 1,000 mg tablet Take 1 tablet by mouth two times a day with meals. . lisinopril (ZESTRIL) 5 mg tablet Take 1 tablet by mouth once daily. benzonatate (TESSALON PERLES) 100 mg capsule Take 1 capsule by mouth three times daily as needed for cough. levothyroxine (SYNTHROID) 100 mcg tablet Take 1 tablet by mouth once daily. docusate sodium (COLACE) 100 mg capsule Take 1 capsule by mouth twice daily. (Patient not taking: Reported on 09/10/2023) oxybutynin (DITROPAN) 5 mg tablet Take 1 tablet by mouth three times daily as needed (bladder spasm) for up to 7 days. Stop taking 36 hours before your baum catheter removal. acetaminophen (TYLENOL) 325 mg tablet Take 2 tablets by mouth every 6 hours as needed for pain. ACCU-CHEK GUIDE ME GLUCOSE MTR USE TO TEST BLOOD SUGAR Lancets lancets Test blood sugar(s) 1 times daily. Dx: Type 2 DM - Controlled E11.9 Insulin: No Irrigation Set irst 1 kit to flush SPT as needed Syringe Disposable, Irrigation (IRRIGATION SYRINGE) syrg Use to flush SPT with Irrigation fluid sodium chloride 0.9 % IRRIGATION Use irrigation solution to flush SPT cholecalciferol, Vitamin D3, (VITAMIN D3) 1,250 mcg (50,000 unit) cap capsule Take 1 capsule by mouth one time a week. (Patient not taking: Reported on 09/10/2023) Syringe with Needle, Disp, 3 mL 22 gauge x 1 syrg Use as directed to inject testosterone once a month COMPOUNDED PRESCRIPTION Night bag for Baum catheter Urinary Bag (URINARY LEG BAG) Misc Misc Use as needed Catheter (BARD COUDE TIP CATHETER) 16 Fr Misc Misc to be used as needed ALBUTEROL 90 MCG/ACTUATION AEROSOL INHALER Inhale two(2) puffs four(4) times a day for wheezing andshortness of breath. No current facility-administered medications on file prior to visit. Social History Social History Tobacco Use Smoking status: Former Packs/day: 2.00 Years: 2.00 Additional pack years: 0.00 Total pack years: 4.00 Types: Cigarettes Quit date: 07/04/1987 Years since quittin.2 Smokeless tobacco: Never Vaping Use Vaping Use: Never used Substance Use Topics Alcohol use: Yes Comment: occasional- less than 1 drink per week Drug use: No Review of Symptoms REVIEW OF SYSTEMS GENERAL: No weight loss, malaise or fevers HEENT: Negative for frequent or significant headaches, No changes in hearing or vision, no nose bleeds or other nasal problems NECK: Negative for lumps, goiter, pain and significant neck swelling RESPIRATORY: Negative for cough, hemoptysis, wheezing, COPD, dyspnea or shortness of breath CARDIOVASCULAR: Negative for chest pain, leg swelling, hypertension, CHF or palpitations GI: No nausea, vomiting, or diarrhea : No history of dysuria, frequency or incontinence, No difficulty urinating, nocturia > 1 timeper night or hematuria MUSCULOSKELETAL: Negative for joint pain or swelling, back pain or muscle pain SKIN: Negative for lesions, rash, and itching PSYCH: Negative mood disorder and recent psychosocial stressors HEMATOLOGY/LYMPHOLOGY: Admits to easy bruising on Lovenox. ENDOCRINE: Negative for cold or heat intolerance, polyuria, polydipsia and goiter NEURO: No history of headaches, syncope, paralysis, seizures or tremors EXAM: BP 110/60 Pulse 84 Resp 18 Wt 111.7 kg (246 lb 3.2 oz) SpO2 96% BMI 31.94 kg/m General Appearance: Well appearing, alert, in no acute distress, well-hydrated, well nourished.. Skin: Skin color, texture, turgor normal, no suspicious rashes or lesions. Head: Normocephalic, no masses, lesions, tenderness or abnormalities. Eyes: Anicteric sclera. Pupils are equally round and reactive to light. Extraocular movements are intact. . Ears: External ears normal, canals clear. Nose/Sinuses: Nares normal, septum midline, mucosa normal, no drainage or sinus tenderness. Oropharynx: Lips, mucosa, and tongue normal, teeth and gums normal, oropharynx normal. Neck: Supple, no adenopathy; thyroid symmetric, normal size, no bruits. Lungs: Lungs clear to auscultation. No wheezing, rhonchi, rales.. Heart: RRR without murmur, gallop, or rubs. No ectopy. Abdomen: Abdomen soft, non-tender. Bowel sounds normal, Positive findings: splenomegaly. Extremities: No deformities, edema, skin discoloration, clubbing or cyanosis. Good capillary refill. . Peripheral Pulses: Normal. Neurologic: CN II-XII intact grossly Lymph Nodes: No cervical lymphadenopathy and No supraclavicular lymphadenopathy. Feet: Shoes and socks removed, No deformities, ulcers, calluses, normal distal pulses, and sensitive to 10 gm monofilament Health Maintenance List Shingrix Vaccine(1 of 2) Never done Dilated Retinal Exam due on 04/03/2022 Hepatitis B Vaccine(2 of 3 - Hep B Twinrix 3-dose series) due on 07/23/2022 Hepatitis A Vaccine(2 of 3 - Hep A Twinrix risk 3-dose series) due on 07/23/2022 Covid-19 Vaccine( season) due on 10/31/2022 Diabetic Foot Exam due on 06/26/2023 Urine Albumin:Creatinine Ratio due on 07/17/2023 HbA1C due on 09/16/2023 Influenza Vaccine(1) due on 11/01/2023 Annual PCP Team Chronic Disease Visit due on 02/12/2024 LDL Cholesterol due on 03/18/2024 Colorectal Cancer Screening due on 03/13/2026 DTaP,Tdap,Td Vaccine(3 - Td or Tdap) due on 02/18/2028 Hepatitis C Screening Completed HIV Screening Completed Pneumococcal Vaccine Completed Data reviewed Latest Ref Rng 03/18/2023 WBC 3.70 - 11.00 k/uL 2.55 (L) RBC 4.20 - 6.00 m/uL 4.23 Hemoglobin 13.0 - 17.0 g/dL 12.5 (L) Hematocrit 39.0 - 51.0 % 35.1 (L) MCV 80.0 - 100.0 fL 83.0 MCH 26.0 - 34.0 pg 29.6 MCHC 30.5 - 36.0 g/dL 35.6 RDW-CV 11.5 - 15.0 % 16.3 (H) Platelet Count 150 - 400 k/uL 54 (L) MPV 9.0 - 12.7 fL 8.8 (L) Neut% % 48.2 Abs Neut (ANC) 1.45 - 7.50 k/uL 1.23 (L) Lymph% % 36.9 Abs Lymph 1.00 - 4.00 k/uL 0.94 (L) [place]% % 9.0 Abs [place] <0.87 k/uL 0.23 Eosin% % 5.5 Abs Eosin <0.46 k/uL 0.14 Baso% % 0.4 Abs Baso <0.11 k/uL <0.03 Immature Gran % % 0.0 IMMATURE GRANS (ABS) <0.10 k/uL <0.03 NRBC /100 WBC 0.0 Absolute nRBC <0.01 k/uL <0.01 DTYPE Auto Protein, Total 6.3 - 8.0 g/dL 6.1 (L) Albumin 3.9 - 4.9 g/dL 3.9 Calcium 8.5 - 10.2 mg/dL 9.2 Bilirubin, Total 0.2 - 1.3 mg/dL 1.2 Alkaline Phosphatase 38 - 113 U/L 100 AST 14 - 40 U/L 32 ALT 10 - 54 U/L 32 Glucose 74 - 99 mg/dL 146 (H) BUN 9 - 24 mg/dL 16 Creatinine 0.73 - 1.22 mg/dL 0.80 Sodium 136 - 144 mmol/L 136 Potassium 3.7 - 5.1 mmol/L 4.0 Chloride 97 - 105 mmol/L 105 CO2 22 - 30 mmol/L 24 Anion Gap 9 - 18 mmol/L 7 (L) eGFR >=60 mL/min/1.73m 106 Cholesterol, Total <200 mg/dL 104 Triglyceride <150 mg/dL 74 HDL Cholesterol >39 mg/dL 46 Non HDL Cholesterol <130 mg/dL 58 Fasting Time hrs 12 VLDL Cholesterol <30 mg/dL 15 TC:HDL Ratio <5.10 2.26 LDL Cholesterol <100 mg/dL 43 LDL:HDL Ratio <2.54 0.93 Hemoglobin A1C 4.3 - 5.6 % 5.8 (H) Estimated Average Glucose mg/dL 120 PSA Screening <2.60 ng/mL <0.02 Testosterone 193 - 824 ng/dL <12 (L) Vitamin D 25 Hydroxy 31.0 - 80.0 ng/mL 63.0 TSH 0.270 - 4.200 mIU/L 2.920 Legend: (L) Low (H) High ASSESSMENT/PLAN: 1. Annual physical exam - ICD9: V70.0, ICD10: Z00.00 (primary diagnosis) - Counseled on healthy diet and regular exercise - Discussed need for and benefit of weight loss. BMI 31.94 kg/(m^2) - Follow up for annual exam in one year 2. Diabetes mellitus type II (HCC) - ICD9: 250.00, ICD10: E11.9 Managed by endocrinology. Continue current reigmen. Recheck A1c and can fax to Dr. Luna's office. F/u with optho for yearly DM eye exam. - METFORMIN 1,000 MG TABLET - CONSULT TO OPHTHALMOLOGY - COMPLETE BLOOD COUNT AND DIFFERENTIAL - COMPREHENSIVE METABOLIC PANEL - HEMOGLOBIN A1C - ALBUMIN/CREATININE RATIO, URINE 3. Hypothyroidism, unspecified type - ICD9: 244.9, ICD10: E03.9 - Instructed patient on importance of taking on an empty stomach either first thing in the morning or at bedtime. - continue current dose of Synthroid 4. Cirrhosis, nonalcoholic (HCC) - ICD9: 571.5, ICD10: K74.60 Recommended avoidance of tylenol and alcohol. Overdue for f/u with GI. Recheck LFTs. Refusing Hepatitis A & B vaccinations. 5. Secondary esophageal varices without bleeding (HCC) - ICD9: 456.21, ICD10: I85.10 Denies bleeding symptoms while on anticoagulation. Overdue for EGD. Advised to contact GI for this.Red flags for re-assessment reviewed with patient in detail. 6. Splenomegaly - ICD9: 789.2, ICD10: R16.1 Enlarged on exam. Non tender today. Repeat labs and f/u with heme/onc as recommended. 7. Polycythemia, secondary - ICD9: 289.0, ICD10: D75.1 Repeat labs and f/u with heme/onc as recommended. 8. Neutropenia, unspecified type (HCC) - ICD9: 288.00, ICD10: D70.9 Repeat labs and f/u with heme/onc as recommended. 9. Thrombocytopenia (HCC) - ICD9: 287.5, ICD10: D69.6 Denies bleeding symptoms on Lovenox. Repeat labs and f/u with heme/onc as recommended. 10. MARC (obstructive sleep apnea) - ICD9: 327.23, ICD10: G47.33 Symptoms improved with nightly CPAP. Will continue to benefit from nightly use. 11. Hyperlipidemia, unspecified hyperlipidemia type - ICD9: 272.4, ICD10: E78.5 - Controlled - Continue current medications - Counseled on healthy diet and regular exercise 12. Recurrent deep vein thrombosis (DVT) (HCC) - ICD9: 453.40, ICD10: I82.409 No signs of recurrence on Lovenox. 13. Episode of recurrent major depressive disorder, unspecified depression episode severity (HCC) -ICD9: 296.30, ICD10: F33.9 Mild symptoms based on last PHQ-9. No change in regimen. Call with worsening symptoms. 14. Chronic insomnia - ICD9: 780.52, ICD10: F51.04 Continue Doxepin PRN. Julián Urias MD documented [facility] History of Present illness Narrative* Waleska Flores MA - 09/09/2023 3:17 PM EDT POPULATION HEALTH NAVIGATION OUTREACH Action/FYI Patient outreach for [place] Medication Adherence Medication(s) Reviewed: METFORMIN TAB 1000 MG, and LISINOPRIL 5 MG TABLET, and ATORVASTATIN 10 MG TABLET Next fill date: 08/25/2023 Outcome: Per Medication Dispense History patient last filled the above prescription(s) on 05/27/2023 - Qty: 90 with 0 refills remaining - [facility]. (All prescriptions have ) Left message on voice mail and sent [employer]You message. Message added to appointment notes for visit tomorrow with PCP. Reason for Outreach Med Adherence Patient Contacted: Unable or unnecessary to reach patient: Left message [employer] message sent Updated appointment notes Navigation Signature: Waleska Flores MA September 09, 2023 3:17 PM documented in this encounter[facility]05-07-2024 History of Present illness Narrative* Jessika Fregoso MA - 07/07/2023 4:01 PM EDT POPULATION HEALTH NAVIGATION OUTREACH Action/FYI Spoke to patient regarding Annual Medicare Wellness and patient declined scheduling. He will call back to schedule. Reason for Outreach Care Gap/HCC or Scheduling Wellness Visits Care Gaps due: Medicare Annual Wellness Visit Diabetic Eye Exam Patient Contacted: Spoke to patient/parent/or legal guardian Patient identified by name and : Yes Care Gap/HCC/Scheduling Wellness actions taken: Patient declined: Patient will call back later to schedule or asks for a call back HCC related Navigation Signature: Jessika Fregoso MA July 07, 2023 4:01 PM documented in this encounter[facility]03-20-2024 Miscellaneous Notes* Telephone Encounter - Feli Agarwal OCCA - 05/20/2023 11:58 AM EDT Patient has been identified by name and date of : Yes Patient phones for refill(s): Requested Prescriptions Pending Prescriptions Disp Refills doxepin capsule 10 mg 90 capsule 1 Sig: Take 1 capsule by mouth daily at bedtime. Date of last office visit in primary care: 02/11/2023 Date of next office visit in primary care: Visit date not found Please advise. Thank you. EDDY Mejia. documented in this [facility]03-20-2024 Miscellaneous Notes* Telephone Encounter - Ngoc Gonzalez LPN - 05/20/2023 9:41 AM EDT Patient has been identified by name and date of : Yes Patient phones for refill(s): Requested Prescriptions Pending Prescriptions Disp Refills blood sugar diagnostic (BLOOD GLUCOSE TEST) test strip 50 Strip 11 Sig: Test blood sugar(s) 1 times daily. Dx: Type 2 DM - Controlled E11.9 Insulin: No Date of last office visit in primary care: 02/11/2023 Date of next office visit in primary care: Visit date not found Please advise. Thank you. Ngoc Gonzalez LPN. documented in this [facility]12-13-2023 Instructions* Patient Instructions* Marli Cook APRN.CNP - 02/11/2023 10:13 AM EST Need to make appointment GI as soon as possible Also needs to make appointment with vascular as previously recommended [facility] this [facility]12[facility] History of Present illness Narrative* Marli Cook APRN.CNP - 02/11/2023 9:52 AM EST 02/11/2023 Patient presents with: F/U 6 months SUBJECTIVE: This is a 52 year old that is here today for Above Complaints. Since last office appointment has been in good health without ER visits or hospitalizations. Diabetes: Follows with Dr. Raad Luna. Reports he has last office in December and he does not have to follow-up for one year. Recommended follow-up in one year. Checking blood sugars 2-3 times a week.Last few readings he has taken are 140- 160's. Taking metformin as prescribed without side effects. Denies visual changes, polyuria or polydipsia. MARC/Insomnia: reports uses nightly as ordered by Dr. Yin. Taking doxepin as prescribed without side effects. Improved sleep. No recent office visit. Splenomegaly: followed with Dr. Wong, hematology on 05/23/2022. Advised to continue his anticoagulation and follow-up vascular for possible IVC filter and digital production manager for cirrhotic liver .Patient has done neither. He reports he just paid off his urinary surgery and will not have enough money until April. Denies bleeding symptoms, abdominal pain,yellowing of skin/eye, pale colored stool, darkurine itchy skin or loss of appetite. Refusing hep A and B vaccine HYPOTHYROIDISM: taking synthroid as prescribed without side effects. 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 Wong Hematuria work up in progress as of 09/24/04 Hepatomegaly Hypogonadism in male 2/[address]chie[address] testicular pain[address] Luna Hypothyroidism Dr. Luna-jagdish Left-sided muscle weakness intermittent, has had extensive work up Obesity MARC (obstructive sleep apnea) Seeing Dr. Yin, using CPAP Osteopenia of neck of left femur 06/18/2020 Other cirrhosis of liver (HCC) 2/2 BANEGAS. Refused liver biopsy PMH - PAST MEDICAL HISTORY OF scrotal swelling Pulmonary embolism (HCC) 1999' Recurrent deep vein thrombosis (DVT) (HCC) Retention of urine, unspecified Snoring Splenomegaly Thrombocytopenia (HCC) Urethral stricture 2020 Urethral stricture s/p urethroplasty 06/2021. Vitamin D deficiency ALLERGIES Piperacillin, Vancocin [Vancomycin], Latex, and Sodium Hypochlorite Solution MEDICATIONS Current Outpatient Medications Medication Sig ipratropium-albuterol (DUONEB) 0.5 mg-3 mg(2.5 mg base)/3 mL nebu Inhale 3 mL as instructed every 4hours as needed (wheezing). Use over 5-15minutes per nebulizer. benzonatate (TESSALON PERLES) 100 mg capsule Take 1 capsule by mouth three times daily as needed for cough. atorvastatin (LIPITOR) 10 mg tablet Take 1 tablet by mouth daily at bedtime. For cholesterol. metFORMIN (GLUCOPHAGE) 1,000 mg tablet Take 1 tablet by mouth twice daily with meals. . lisinopril (ZESTRIL) 5 mg tablet Take 1 tablet by mouth once daily. enoxaparin (LOVENOX) 120 mg/0.8 mL injection Inject 0.7 mL subcutaneously every 12 hours. blood sugar diagnostic (BLOOD GLUCOSE TEST) test strip Test blood sugar(s) 1 times daily. Dx: Type 2 DM - Controlled E11.9 Insulin: No levothyroxine (SYNTHROID) 100 mcg tablet Take 1 tablet by mouth once daily. docusate sodium (COLACE) 100 mg capsule Take 1 capsule by mouth twice daily. oxybutynin (DITROPAN) 5 mg tablet Take 1 tablet by mouth three times daily as needed (bladder spasm) for up to 7 days. Stop taking 36 hours before your baum catheter removal. acetaminophen (TYLENOL) 325 mg tablet Take 2 tablets by mouth every 6 hours as needed for pain. ACCU-CHEK GUIDE ME GLUCOSE MTR USE TO TEST BLOOD SUGAR testosterone enanthate (DELATESTRYL) 200 mg/mL injection Lancets lancets Test blood sugar(s) 1 times daily. Dx: Type 2 DM - Controlled E11.9 Insulin: No CPAP Patient would like to change DME closer to home. Needs mask and supplies. Current PAP device only 3 months old. Need download from device. Lifetime supplies. Irrigation Set irst 1 kit to flush SPT as needed Syringe Disposable, Irrigation (IRRIGATION SYRINGE) syrg Use to flush SPT with Irrigation fluid sodium chloride 0.9 % IRRIGATION Use irrigation solution to flush SPT cholecalciferol, Vitamin D3, (VITAMIN D3) 1,250 mcg (50,000 unit) cap capsule Take 1 capsule by mouth one time a week. Syringe with Needle, Disp, 3 mL 22 gauge x 1 syrg Use as directed to inject testosterone once a month COMPOUNDED PRESCRIPTION Night bag for Baum catheter Urinary Bag (URINARY LEG BAG) Misc Misc Use as needed Catheter (BARD COUDE TIP CATHETER) 16 Fr Misc Misc to be used as needed ALBUTEROL 90 MCG/ACTUATION AEROSOL INHALER Inhale two(2) puffs four(4) times a day for wheezing andshortness of breath. No current facility-administered medications for this visit. Medications and allergies reviewed by this provider. SOCIAL HISTORY Social History Tobacco Use Smoking status: Former Packs/day: 2.00 Years: 2.00 Additional pack years: 0.00 Total pack years: 4.00 Types: Cigarettes Quit date: 07/04/1987 Years since quittin.6 Smokeless tobacco: Never Vaping Use Vaping Use: Never used Substance Use Topics Alcohol use: Yes Comment: occasional- less than 1 drink per week Drug use: No REVIEW OF SYSTEMS All other reviewed and negative other than HPI. OBJECTIVE: BP 98/62 Pulse 97 Resp 18 Wt 112.8 kg (248 lb 9.6 oz) SpO2 98% BMI 32.25 kg/m . Vital signs reviewed by this provider. APPEARANCE Well appearing, alert, in no acute distress, well-hydrated, well nourished. EYES PERRLA, conjunctiva and sclera normal. EARS External ears normal, canals clear HEART RRR with normal S1 and S2, no murmurs, no gallops, no JVD appreciated LUNG clear to auscultation. No wheezes, rhonchi or rales ABDOMEN bowel sounds normoactive, no bruits, soft, non-distended. Tender splenomegaly EXTREMITIES Extremities normal, No deformities, No skin discoloration, and No edema SKIN Skin color, texture, turgor normal, no suspicious rashes or lesions Component Latest Ref Rng & Units 08/13/2022 WBC 3.70 - 11.00 k/uL 2.61 (L) RBC 4.20 - 6.00 m/uL 4.51 Hemoglobin 13.0 - 17.0 g/dL 13.0 Hematocrit 39.0 - 51.0 % 37.1 (L) MCV 80.0 - 100.0 fL 82.3 MCH 26.0 - 34.0 pg 28.8 MCHC 30.5 - 36.0 g/dL 35.0 RDW-CV 11.5 - 15.0 % 16.4 (H) Platelet Count 150 - 400 k/uL 61 (L) MPV 9.0 - 12.7 fL 8.8 (L) Neut% % 49.1 Abs Neut (ANC) 1.45 - 7.50 k/uL 1.28 (L) Lymph% % 33.0 Abs Lymph 1.00 - 4.00 k/uL 0.86 (L) [place]% % 10.3 Abs [place] <0.87 k/uL 0.27 Eosin% % 6.1 Abs Eosin <0.46 k/uL 0.16 Baso% % 1.1 Abs Baso <0.11 k/uL 0.03 Immature Gran % % 0.4 IMMATURE GRANS (ABS) <0.10 k/uL <0.03 NRBC /100 WBC 0.0 Absolute nRBC <0.01 k/uL <0.01 DTYPE Auto Hemoglobin A1C 4.3 - 5.6 % 5.9 (H) Estimated Average Glucose mg/dL 123 Shingrix Vaccine(1 of 2) Never done Dilated Retinal Exam due on 04/03/2022 Hepatitis B Vaccine(2 of 3 - Hep B Twinrix 3-dose series) due on 07/23/2022 Hepatitis A Vaccine(2 of 3 - Hep A Twinrix risk 3-dose series) due on 07/23/2022 LDL Cholesterol due on 09/06/2022 Covid-19 Vaccine( season) due on 10/31/2022 HbA1C due on 02/12/2023 Diabetic Foot Exam due on 06/26/2023 Urine Albumin:Creatinine Ratio due on 07/17/2023 Annual PCP Team Chronic Disease Visit due on 02/12/2024 Colorectal Cancer Screening due on 03/13/2026 DTaP,Tdap,Td Vaccine(3 - Td or Tdap) due on 02/18/2028 Influenza Vaccine Completed Hepatitis C Screening Completed HIV Screening Completed Pneumococcal Vaccine Completed ASSESSMENT/PLAN: 1. Hypothyroidism, unspecified type - ICD9: 244.9, ICD10: E03.9 (primary diagnosis) - Instructed patient on importance of taking on an empty stomach either first thing in the morning or at bedtime. - check TSH today - continue current dose of Synthroid 0.100 mg - Follow up in 6 months - TSH BLD 2. Diabetes mellitus type II (HCC) - ICD9: 250.00, ICD10: E11.9 - Control undetermined, due for labs - Continue current medications - Statin prescribed - atorvastatin - Blood glucose monitoring on a once daily schedule - Counseled on healthy diet and regular exercise - Discussed need for and benefit of weight loss. BMI 32.25 kg/(m^2) - HGB A1C - METFORMIN 1,000 MG TABLET - follow-up with endocrinology as recommended 3. Cirrhosis, nonalcoholic (HCC) - ICD9: 571.5, ICD10: K74.60 - discussed with patient the importance of follow-up. Discussed if he does not follow-up his condition can cause , verbalizes understanding - refusing Hep A and B immunization - COMP METABOLIC PANEL 4. Encounter for immunization - ICD9: V03.89, ICD10: Z23 - INFLUENZA VACCINE, AGE 6 MO - 64 YR, QUADRIVALENT (AFLURIA, FLULAVAL, FLUZONE) 5. Splenomegaly - ICD9: 789.2, ICD10: R16.1 - recommend follow-up with hematology as reccommended - has refused splenectomy in the past - CBC + DIFF 6. MARC (obstructive sleep apnea) - ICD9: 327.23, ICD10: G47.33 - continue nightly CPAP - would recommend follow-up with sleep medicine at least yearly 7. Secondary esophageal varices without bleeding (HCC) - ICD9: 456.21, ICD10: I85.10 - discussed with patient if varices burst this can causae - he verbalizes understanding - encourages to make follow-up with GI as previously recommended 8. Hyperlipidemia, unspecified hyperlipidemia type - ICD9: 272.4, ICD10: E78.5 - Control undetermined, due for labs - Continue current medications - Counseled on healthy diet and regular exercise - Discussed need for and benefit of weight loss. BMI 32.25 kg/(m^2) - Follow up in 6 months, sooner should any other issues arise. 9. Chronic insomnia - ICD9: 780.52, ICD10: F51.04 - stable, continue medication - plan as in #6 10. Polycythemia, secondary - ICD9: 289.0, ICD10: D75.1 - plan as in #5 11. Thrombocytopenia (HCC) - ICD9: 287.5, ICD10: D69.6 - bleeding symptoms reviewed, if develops needs to go to ER - plan as in #5 Marli Podlogar, HOTHOUSE WORKER.BUSINESS OPERATIONS COORDINATOR Prescription instructions reviewed with patient as applicable. Patient advised if symptoms do not improve or if symptoms worsen sooner, to contact their primary care physician. Potential red flag symptoms discussed with the patient. Reviewed appropriate action plan to take if red flag symptoms occur. Patient agreeable to treatment plan. I spent a total of 40 minutes on the date of the service which included preparing to see the patient, [id number] patient care, completing clinical documentation, obtaining and/or reviewing separately obtained history, performing a medically appropriate examination, counseling and educating the pat ient/family/caregiver, and ordering medications, tests, or procedures. documented in this [facility]07-18-2023 Miscellaneous Notes* Telephone Encounter - Fredo Winter APRN.CNP - 09/16/2022 2:27 PM EDT The following approved medication requests have been transmitted electronically. Requested Prescriptions Pending Prescriptions Disp Refills ipratropium-albuterol (DUONEB) 0.5 mg-3 mg(2.5 mg base)/3 mL nebu 50 Each 1 Sig: Inhale 3 mL as instructed every 4 hours as needed (wheezing). Use over 5- 15minutes per nebulizer. Fredo Winter APRN.CNP * Telephone Encounter - Whit Lynch LPN - 09/16/2022 1:59 PM EDT Patient has been identified by name and date of : Yes Requested Prescriptions Pending Prescriptions Disp Refills ipratropium-albuterol (DUONEB) 0.5 mg-3 mg(2.5 mg base)/3 mL nebu 50 Each 1 Sig: Inhale 3 mL as instructed every 4 hours as needed (wheezing). Use over 5- 15minutes per nebulizer. Date of last office visit in primary care: 06/25/2022 Next appointment scheduled 12/24/2022 Please advise. Thank you. Whit Lynch LPN documented in this [facility]07-14-2023 Miscellaneous Notes* Telephone Encounter - Bruna Mercado RN - 09/12/2022 10:40 AM EDT Patient returned call and as this nurse reviewed provider's message to pt, it was noted that the call was ended. This nurse attempted to contact patient back, the call was then taken, then immediately ended by unknown reason. Bruna Mercado RN * Telephone Encounter - Bruna Mercado RN - 09/12/2022 8:58 AM EDT Message left for pt to call PCP office and ask for a nurse, for message below. Bruna Mercado RN * Telephone Encounter - Marli Cook APRN.CNP - 09/12/2022 8:48 AM EDT Would recommend over the counter robitussin or delsym. May also use mucinex if having sputum production. Marli Cook APRN.HAKAN * Telephone Encounter - Bruna Mercado RN - 09/12/2022 8:11 AM EDT Patent was seen in [facility] on 09/11. Reports the benzonatate medication that was ordered for him is not helping his cough at all. Pt asking if EC provider or his PCP would order something stronger? Uses Swetha Bean. Please advise. documented in this [facility]07-13-2023 Miscellaneous Notes* Telephone Encounter - Floresita Fregoso LPN - 09/11/2022 5:02 PM EDT Patient notified.Floresita Fregoso LPN * Telephone Encounter - Zackary Grewal APRN.CNP - 09/11/2022 2:25 PM EDT No acute findings noted on today's chest x-ray. Follow-up with PCP 5 to 7 days for reevaluation. Zackary Grewal APRN.CNP documented in this encounterT[facility]07-13-2023 Instructions* Patient Instructions* Zackary Grewal APRN.CNP - 09/11/2022 2:23 PM EDT documented in this encounterT[facility]07-13-2023 History of Present illness Narrative* Zackary Grewal APRN.CNP - 09/11/2022 1:39 PM EDT Subjective HPI Nontoxic-appearing male presents urgent care chief complaint cough body aches chills nasal congestion. Duration of symptoms 2 days. Associated symptoms listed above. Has not used any OTC medications.No known sick contacts. Denies any significant pain today. Denies any fever body aches chills productive cough chest pain shortness of breath pleuritic pain hemoptysis nausea vomiting abdominal pain change in bowel or bladder habits. Past medical history prescription medication use and allergies reviewed. .Patient presents with: Cough: Congestin, body aches x 2 days PAST MEDICAL HISTORY Diagnosis Date Abdominal pain, generalized Achilles tendon tear Adjustment disorder with depressed mood Bronchitis, mucopurulent recurrent (HCC) Calcified granuloma of lung (HCC) left lower lung on CT abd/pelvis 04/10/16 Cholecystitis Chronic lower back pain Diabetes mellitus type II (HCC) DVT of popliteal vein (HCC) 2004 Embolism and thrombosis of unspecified site 01/2004 left, positive lupus anticoagulant- using Lovenox, Previously seeing Dr. Wong Hematuria work up in progress as of 09/24/04 Hepatomegaly Hypogonadism in male 2/[address] pain[address] Luna Hypothyroidism Dr. Luna-endo Left-sided muscle weakness intermittent, has had extensive work up Obesity MARC (obstructive sleep apnea) Seeing Dr. Yin, using CPAP Osteopenia of neck of left femur 06/18/2020 Other cirrhosis of liver (HCC) 2/2 BANEGAS. Refused liver biopsy PMH - PAST MEDICAL HISTORY OF scrotal swelling Pulmonary embolism (HCC) 1999' Recurrent deep vein thrombosis (DVT) (HCC) Retention of urine, unspecified Snoring Splenomegaly Thrombocytopenia (HCC) Urethral stricture 2020 Urethral stricture s/p urethroplasty 06/2021. Vitamin D deficiency PAST SURGICAL HISTORY Procedure Laterality Date COLONOSCOPY 2009 COLONOSCOPY FLX DX W/COLLJ SPEC WHEN PFRMD 03/13/2021 1 small polyp-repeat in 5 years ESOPHAGOGASTRODUODENOSCOPY TRANSORAL DIAGNOSTIC 03/13/2021 grade II esophageal varices EXPLORATORY LAPAROTOMY CELIOTOMY W/WO BIOPSY SPX 03/2005 Laparotomy, exp; incidental appendectomy IVC FILTER PERCUTANEOUS 06/2004 IVC FILTER SURGICAL LAPAROSCOPY SURG CHOLECYSTECTOMY 06/08/2014 PAST SURGICAL HISTORY OF 1975 finger rt hand table saw dipj PAST SURGICAL HISTORY OF 11/2005 Bladder pacemaker PAST SURGICAL HISTORY OF Bilateral bilateral achilles repair PAST SURGICAL HISTORY OF 2006, 2007 bilateral orchiectomy, secondary to pain PAST SURGICAL HISTORY OF 2020 placement of suprapubic catheter PAST SURGICAL HISTORY OF N/A 07/16/2021 urethroplasty with BMG ALLERGIES Piperacillin, Vancocin [Vancomycin], Latex, and Sodium Hypochlorite Solution MEDICATIONS atorvastatin (LIPITOR) 10 mg tablet Take 1 tablet by mouth daily at bedtime. For cholesterol. metFORMIN (GLUCOPHAGE) 1,000 mg tablet Take 1 tablet by mouth twice daily with meals. . doxepin capsule 10 mg Take 1 capsule by mouth daily at bedtime. enoxaparin (LOVENOX) 120 mg/0.8 mL injection Inject 0.7 mL subcutaneously every 12 hours. blood sugar diagnostic (BLOOD GLUCOSE TEST) test strip Test blood sugar(s) 1 times daily. Dx: Type 2 DM - Controlled E11.9 Insulin: No levothyroxine (SYNTHROID) 100 mcg tablet Take 1 tablet by mouth once daily. docusate sodium (COLACE) 100 mg capsule Take 1 capsule by mouth twice daily. oxybutynin (DITROPAN) 5 mg tablet Take 1 tablet by mouth three times daily as needed (bladder spasm) for up to 7 days. Stop taking 36 hours before your baum catheter removal. acetaminophen (TYLENOL) 325 mg tablet Take 2 tablets by mouth every 6 hours as needed for pain. ACCU-CHEK GUIDE ME GLUCOSE MTR USE TO TEST BLOOD SUGAR testosterone enanthate (DELATESTRYL) 200 mg/mL injection Lancets lancets Test blood sugar(s) 1 times daily. Dx: Type 2 DM - Controlled E11.9 Insulin: No CPAP Patient would like to change DME closer to home. Needs mask and supplies. Current PAP device only 3 months old. Need download from device. Lifetime supplies. Irrigation Set irst 1 kit to flush SPT as needed Syringe Disposable, Irrigation (IRRIGATION SYRINGE) syrg Use to flush SPT with Irrigation fluid sodium chloride 0.9 % IRRIGATION Use irrigation solution to flush SPT ipratropium-albuterol (DUONEB) 0.5 mg-3 mg(2.5 mg base)/3 mL nebu Inhale 3 mL as instructed every 4hours as needed (wheezing). Use over 5-15minutes per nebulizer. cholecalciferol, Vitamin D3, (VITAMIN D3) 1,250 mcg (50,000 unit) cap capsule Take 1 capsule by mouth one time a week. Syringe with Needle, Disp, 3 mL 22 gauge x 1 syrg Use as directed to inject testosterone once a month COMPOUNDED PRESCRIPTION Night bag for Baum catheter Urinary Bag (URINARY LEG BAG) Misc Misc Use as needed Catheter (BARD COUDE TIP CATHETER) 16 Fr Misc Misc to be used as needed ALBUTEROL 90 MCG/ACTUATION AEROSOL INHALER Inhale two(2) puffs four(4) times a day for wheezing andshortness of breath. lisinopril (ZESTRIL) 5 mg tablet Take 1 tablet by mouth once daily. FAMILY HISTORY Problem Relation Age of Onset Colon Cancer Mother Diabetes Father unsure of how old Coronary Artery Disease Father Hypertension Father Diabetes Sister other (sleep apnea) Sister Diabetes Sister other (sleep apnea) Sister other (Trisomy 22) Daughter other (Trisomy 22) Son Social History Tobacco Use Smoking status: Former Packs/day: 2.00 Years: 2.00 Total pack years: 4.00 Types: Cigarettes Quit date: 07/04/1987 Years since quittin.2 Smokeless tobacco: Never Vaping Use Vaping Use: Never used Substance Use Topics Alcohol use: Yes Comment: occasional- less than 1 drink per week Drug use: No BP 100/64 Pulse 95 Temp 37.1 C (98.7 F) Resp 20 Wt 113.2 kg (249 lb 9.6 oz) SpO2 98% BMI 32.38 kg/m Review of Systems Constitutional: Positive for chills and malaise/fatigue. Negative for fever. HENT: Positive for congestion. Negative for ear discharge, ear pain, sinus pain and sore throat. Eyes: Negative for blurred vision, pain, discharge and redness. Respiratory: Positive for cough. Negative for hemoptysis, sputum production, shortness of breath, wheezing and stridor. Cardiovascular: Negative for chest pain. Gastrointestinal: Negative for abdominal pain, diarrhea, nausea and vomiting. Musculoskeletal: Positive for myalgias. Skin: Negative for itching and rash. Neurological: Negative for dizziness and headaches. Objective Physical Exam Constitutional: General: He is not in acute distress. Appearance: He is not diaphoretic. HENT: Head: Normocephalic. Jaw: No trismus, tenderness, swelling or pain on movement. Nose: Congestion present. Mouth/Throat: Mouth: Mucous membranes are moist. Pharynx: Oropharynx is clear. Uvula midline. No pharyngeal swelling, oropharyngeal exudate, posterior oropharyngeal erythema or uvula swelling. Eyes: Conjunctiva/sclera: Conjunctivae normal. Pupils: Pupils are equal, round, and reactive to light. Cardiovascular: Rate and Rhythm: Normal rate and regular rhythm. Heart sounds: Normal heart sounds. Pulmonary: Effort: Pulmonary effort is normal. No tachypnea, accessory muscle usage or respiratory distress. Breath sounds: No stridor. Wheezing present. No rhonchi or rales. Abdominal: General: There is no distension. Palpations: Abdomen is soft. Tenderness: There is no abdominal tenderness. There is no guarding or rebound. Musculoskeletal: Cervical back: Normal range of motion and neck supple. No edema, erythema, rigidity or tenderness. No pain with movement. Normal range of motion. Lymphadenopathy: Cervical: No cervical adenopathy. Skin: General: Skin is warm and dry. Neurological: Mental Status: He is alert and oriented to person, place, and time. ASSESSMENT/PLAN: 1. Acute cough - ICD9: 786.2, ICD10: R05.1 (primary diagnosis) - XR CHEST 2V FRONTAL/LAT 2. URI with cough and congestion - ICD9: 465.9, ICD10: J06.9 - Discussed viral etiology and rationale for treatment. - Symptomatic treatment with prn analgesia - Supportive care with fluids and rest RESULT: Lines, tubes, and devices: None. Lungs and pleura: A 1.5 cm round opacity overlying the left lower lung. The right lungs are clear. No mass lesion seen. No pleural effusions or pneumothorax. Cardiomediastinal silhouette: Normal cardiomediastinal silhouette. Bones and soft tissues: None. IMPRESSION IMPRESSION: Round opacity overlying the left lower lung. Consider follow-up. No acute findings noted on x-ray. Round opacity was noted. Previous calcified granulomas noted on on abdomen pelvis CT in 2017. Patient will follow-up with PCP to review x-ray results. At this time we will treat this as a viral illness. Cough suppressant will be sent in the pharmacy. Red flags prompt reevaluation discussed. Follow-up with PCP 5 to 7 days symptoms are not improving. Patient was educated on supportive therapies. Patient was instructed to immediately proceed to emergency room for any new, worsening, or symptoms lasting longer than anticipated. The patient's clinical presentationis otherwise unremarkable at this time. Based on exam and clinical finding, the patient is stable for discharge. Plan of care was discussed with patient. Patient verbalizes understanding and agrees to plan of care. This note was generated using [employer] software. It may contain errors in wording, punctuation, or spelling. Zackary Grewal APRN.BUSINESS OPERATIONS COORDINATOR documented in this encounterToledo Hospital07-11-2023 Miscellaneous Notes* Telephone Encounter - Any FeliEDDY freitas - 09/09/2022 7:52 AM EDT Patient has been identified by name and date of : Yes Patient phones for refill(s): Requested Prescriptions Pending Prescriptions Disp Refills atorvastatin (LIPITOR) 10 mg tablet 90 tablet 1 Sig: Take 1 tablet by mouth daily at bedtime. For cholesterol. Date of last office visit in primary care: JANETTE 4/2612/24/22 Last 2 Encounter Wt Readings: Date: Wt: 06/25/2022 114.4 kg (252 lb 4.8 oz) 05/23/2022 114.3 kg (252 lb) Please advise. Thank you. EDDY Mejia documented in this encounterToledo Hospital07-10-2023 Miscellaneous Notes* Telephone Encounter - Feli Agarwal OCCA - 09/08/2022 9:36 AM EDT Patient has been identified by name and date of : Yes Patient phones for refill(s): Requested Prescriptions Pending Prescriptions Disp Refills metFORMIN (GLUCOPHAGE) 1,000 mg tablet 180 tablet 1 Sig: Take 1 tablet by mouth twice daily with meals. . lisinopril (ZESTRIL) 5 mg tablet 90 tablet 1 Sig: Take 1 tablet by mouth once daily. Date of last office visit in primary care: [facility] 06/25/22 12/24/22 Last 2 Encounter Wt Readings: Date: Wt: 06/25/2022 114.4 kg (252 lb 4.8 oz) 05/23/2022 114.3 kg (252 lb) Please advise. Thank you. EDDY Mejia documented in this encounterToledo Hospital04-26-2023 History of Present illness Narrative* Julián Urias MD - 06/25/2022 9:35 AM EDT Chief Complaint Patient presents with: F/U 6 Month HPI Hal Blancas is a 52 year old male who presents here today for 6 month follow up. DIABETES MELLITUS: Mr. Blancas was last seen 6 months ago. Following up with Dr. Raad Luna. Recent A1c 6.2 on 04/21/2022. Since our last visit he denies excessive thirst or increased frequency of urination, numbness, tingling or pain in extremities, new or unusual visual symptoms, and low sugar/hypoglycemic reactions. Follows a diabetic diet most of the time. He is compliant with medication(s) and is tolerating med(s) without any side effects. He reports checking his glucose on a once a day schedule with sugars in the fasting <150 range. Patient's last HgA1C was Hemoglobin A1C (%) Date Value 12/25/2021 5.6 07/02/2021 5.2 02/12/2021 6.9 07/31/2020 7.3 ) Last Ophthalmology exam was More than 1 year ago. States he has appointment coming up. Last Podiatry exam was more than [address] abd/pelvis by hematology for history of spelnomegaly and recurrent DVT showed early cirrhotic changes to his liver. Referred to back to GI who has reordered testing and EGD. Labs have not yet been completed. Does not have appointment scheduled yet with their office, but plans to once he gets his testing back. Previous Hep A and B titers showed no immunity and patient refused vaccinationat that time, but is willing to start Twinrix series today. MARC: Using CPAP machine as ordered by Dr. Yin's office. Reports he's using this nightly. No loud snoring or daytime somnolence. Insomnia: Taking Doxepin 10 mg daily at bedtime. Following with Sleep Medicine Dr. Yin. Thyroid: Is on Synthroid 100 mcg daily, no missed dosages. No change in symptoms. Managed by Dr. Luna. Past medical history, appointments, medications, allergies reviewed. 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 Wong Hematuria work up in progress as of 09/24/04 Hepatomegaly Hypogonadism in male 2/[address] Luna Hypothyroidism Left-sided muscle weakness intermittent, has had extensive work up Obesity MARC (obstructive sleep apnea) Seeing Dr. Yin, using CPAP Osteopenia of neck of left femur 06/18/2020 Other cirrhosis of liver (HCC) 2/2 BANEGAS. Refused liver biopsy PMH - PAST MEDICAL HISTORY OF scrotal swelling Pulmonary embolism (HCC) Retention of urine, unspecified Snoring Splenomegaly Thrombocytopenia (HCC) Urethral stricture 2020 Urethral stricture s/p urethroplasty 06/2021. Vitamin D deficiency Previous Surgical History PAST SURGICAL HISTORY Procedure Laterality Date COLONOSCOPY 2009 COLONOSCOPY FLX DX W/COLLJ SPEC WHEN PFRMD 03/13/2021 1 small polyp-repeat in 5 years ESOPHAGOGASTRODUODENOSCOPY TRANSORAL DIAGNOSTIC 03/13/2021 grade II esophageal varices EXPLORATORY LAPAROTOMY CELIOTOMY W/WO BIOPSY SPX 03/2005 Laparotomy, exp; incidental appendectomy IVC FILTER PERCUTANEOUS 06/2004 IVC FILTER SURGICAL LAPAROSCOPY SURG CHOLECYSTECTOMY 06/08/2014 PAST SURGICAL HISTORY OF 1975 finger rt hand table saw dipj PAST SURGICAL HISTORY OF 11/2005 Bladder pacemaker PAST SURGICAL HISTORY OF Bilateral bilateral achilles repair PAST SURGICAL HISTORY OF 2006, 2007 bilateral orchiectomy, secondary to pain PAST SURGICAL HISTORY OF 2020 placement of suprapubic catheter PAST SURGICAL HISTORY OF N/A 07/16/2021 urethroplasty with BMG Family History FAMILY HISTORY Problem Relation Age of Onset Colon Cancer Mother Diabetes Father unsure of how old Coronary Artery Disease Father Hypertension Father Diabetes Sister other (sleep apnea) Sister Diabetes Sister other (sleep apnea) Sister other (Trisomy 22) Daughter other (Trisomy 22) Son Patient Allergies ALLERGIES Allergen Reactions Piperacillin Rash Vancocin [Vancomyci* Rash Latex Rash Sodium Hypochlorite* Rash Current Medications Current Outpatient Medications on File Prior to Visit Medication Sig enoxaparin (LOVENOX) 120 mg/0.8 mL injection Inject 0.7 mL subcutaneously every 12 hours. blood sugar diagnostic (BLOOD GLUCOSE TEST) test strip Test blood sugar(s) 1 times daily. Dx: Type 2 DM - Controlled E11.9 Insulin: No metFORMIN (GLUCOPHAGE) 1,000 mg tablet Take 1 tablet by mouth twice daily with meals. . lisinopril (ZESTRIL, PRINIVIL) 5 mg tablet Take 1 tablet by mouth once daily. atorvastatin (LIPITOR) 10 mg tablet Take 1 tablet by mouth daily at bedtime. For cholesterol. levothyroxine (SYNTHROID) 100 mcg tablet Take 1 tablet by mouth once daily. docusate sodium (COLACE) 100 mg capsule Take 1 capsule by mouth twice daily. acetaminophen (TYLENOL) 325 mg tablet Take 2 tablets by mouth every 6 hours as needed for pain. ACCU-CHEK GUIDE ME GLUCOSE MTR USE TO TEST BLOOD SUGAR testosterone enanthate (DELATESTRYL) 200 mg/mL injection Lancets lancets Test blood sugar(s) 1 times daily. Dx: Type 2 DM - Controlled E11.9 Insulin: No CPAP Patient would like to change DME closer to home. Needs mask and supplies. Current PAP device only 3 months old. Need download from device. Lifetime supplies. Irrigation Set irst 1 kit to flush SPT as needed Syringe Disposable, Irrigation (IRRIGATION SYRINGE) syrg Use to flush SPT with Irrigation fluid sodium chloride 0.9 % IRRIGATION Use irrigation solution to flush SPT ipratropium-albuterol (DUONEB) 0.5 mg-3 mg(2.5 mg base)/3 mL nebu Inhale 3 mL as instructed every 4hours as needed (wheezing). Use over 5-15minutes per nebulizer. cholecalciferol, Vitamin D3, (VITAMIN D3) 1,250 mcg (50,000 unit) cap capsule Take 1 capsule by mouth one time a week. Syringe with Needle, Disp, 3 mL 22 gauge x 1 syrg Use as directed to inject testosterone once a month COMPOUNDED PRESCRIPTION Night bag for Baum catheter Urinary Bag (URINARY LEG BAG) Misc Misc Use as needed Catheter (BARD COUDE TIP CATHETER) 16 Fr Misc Misc to be used as needed ALBUTEROL 90 MCG/ACTUATION AEROSOL INHALER Inhale two(2) puffs four(4) times a day for wheezing andshortness of breath. oxybutynin (DITROPAN) 5 mg tablet Take 1 tablet by mouth three times daily as needed (bladder spasm) for up to 7 days. Stop taking 36 hours before your baum catheter removal. No current facility-administered medications on file prior to visit. Social History Social History Tobacco Use Smoking status: Former Packs/day: 2.00 Years: 2.00 Pack years: 4.00 Types: Cigarettes Quit date: 07/04/1987 Years since quittin.0 Smokeless tobacco: Never Vaping Use Vaping Use: Never used Substance Use Topics Alcohol use: Yes Comment: occasional- less than 1 drink per week Drug use: No Review of Symptoms REVIEW OF SYSTEMS GENERAL: No weight loss, malaise or fevers RESPIRATORY: Negative for cough, hemoptysis, wheezing, COPD, dyspnea or shortness of breath CARDIOVASCULAR: Negative for chest pain, leg swelling, hypertension, CHF or palpitations GI: No nausea, vomiting, or diarrhea SKIN: Negative for lesions, rash, and itching EXAM: BP 102/60 Pulse 88 Temp 36 C (96.8 F) (Right Tympanic) Resp 16 Wt 114.4 kg (252 lb 4.8 oz) SpO2 98% BMI 32.73 kg/m General Appearance: Well appearing, alert, in no acute distress, well-hydrated, well nourished. Obese Skin: Skin color, texture, turgor normal, no suspicious rashes or lesions. Lungs: Lungs clear to auscultation. No wheezing, rhonchi, rales.. Heart: RRR without murmur, gallop, or rubs. No ectopy. Abdomen: Soft, non distended, +BS. Has tender splenomegaly. Extremities: No deformities, edema, skin discoloration, clubbing or cyanosis. Good capillary refill. . Feet: Shoes and socks removed, No deformities, ulcers, calluses, normal distal pulses, and sensitive to 10 gm monofilament Health Maintenance List SHINGRIX VACCINE(1 of 2) Never done URINE ALBUMIN:CREATININE RATIO due on 03/05/2022 DIABETIC FOOT EXAM due on 03/06/2022 DILATED RETINAL EXAM due on 04/03/2022 HBA1C due on 06/25/2022 HEPATITIS B(1 of 3 - 3-dose series) due on 12/25/2022 HEPATITIS A(1 of 2 - Risk 2-dose series) due on 12/25/2022 LDL CHOLESTEROL due on 09/06/2022 ANNUAL PCP TEAM CHRONIC DISEASE VISIT due on 12/25/2022 COLORECTAL CANCER SCREENING due on 03/13/2026 DTAP,TDAP,TD(3 - Td or Tdap) due on 02/18/2028 INFLUENZA Completed HEPATITIS C SCREENING Completed HIV SCREENING Completed COVID-19 VACCINE Completed PNEUMOCOCCAL Completed Data reviewed Component Latest Ref Rng & Units 04/10/2022 WBC 3.70 - 11.00 k/uL 2.29 (L) RBC 4.20 - 6.00 m/uL 4.30 Hemoglobin 13.0 - 17.0 g/dL 12.2 (L) Hematocrit 39.0 - 51.0 % 34.6 (L) MCV 80.0 - 100.0 fL 80.5 MCH 26.0 - 34.0 pg 28.4 MCHC 30.5 - 36.0 g/dL 35.3 RDW-CV 11.5 - 15.0 % 15.4 (H) Platelet Count 150 - 400 k/uL 54 (L) MPV 9.0 - 12.7 fL 8.8 (L) Neut% % 45.4 Abs Neut (ANC) 1.45 - 7.50 k/uL 1.04 (L) Lymph% % 36.2 Abs Lymph 1.00 - 4.00 k/uL 0.83 (L) [place]% % 9.2 Abs [place] <0.87 k/uL 0.21 Eosin% % 8.3 Abs Eosin <0.46 k/uL 0.19 Baso% % 0.9 Abs Baso <0.11 k/uL <0.03 Immature Gran % % 0.0 IMMATURE GRANS (ABS) <0.10 k/uL <0.03 NRBC /100 WBC 0.0 Absolute nRBC <0.01 k/uL <0.01 DTYPE Auto Protein, Total 6.3 - 8.0 g/dL 6.1 (L) Albumin 3.9 - 4.9 g/dL 4.1 Calcium 8.5 - 10.2 mg/dL 9.0 Bilirubin, Total 0.2 - 1.3 mg/dL 1.3 Alkaline Phosphatase 38 - 113 U/L 87 AST 14 - 40 U/L 25 ALT 10 - 54 U/L 21 Glucose 74 - 99 mg/dL 161 (H) BUN 9 - 24 mg/dL 16 Creatinine 0.73 - 1.22 mg/dL 0.70 (L) Sodium 136 - 144 mmol/L 136 Potassium 3.7 - 5.1 mmol/L 4.3 Chloride 97 - 105 mmol/L 104 CO2 22 - 30 mmol/L 21 (L) Anion Gap 9 - 18 mmol/L 11 eGFR >=60 mL/min/1.73m 111 Testosterone Free 4.06 - 15.6 ng/dL 1.34 (L) Testosterone 240 - 950 ng/dL 135 (L) PSA <2.60 ng/mL 0.10 PSA, Percent Free TSH 0.270 - 4.200 mIU/L 2.130 Vitamin D 25 Hydroxy 31.0 - 80.0 ng/mL 21.6 (L) ASSESSMENT/PLAN: 1. Diabetes mellitus type II (HCC) - ICD9: 250.00, ICD10: E11.9 (primary diagnosis) Controlled on current regiment. Keep follow up with endocrinology as scheduled. - ALBUMIN/CREAT RATIO RND UR - HGB A1C 2. Cirrhosis, nonalcoholic (HCC) - ICD9: 571.5, ICD10: K74.60 Patient has labs pending for GI/hepatology. Recommended he needs to schedule appointment with GI for further monitoring and treatment as well as EGD for varices. Denies bleeding symptoms today. StartTwinrix series today. 3. Recurrent deep vein thrombosis (DVT) (HCC) - ICD9: 453.40, ICD10: I82.409 Continue Lovenox. F/u with hematology. 4. Splenomegaly - ICD9: 789.2, ICD10: R16.1 Minimally decreased in size compared to [address] scan. Extensive varices without ascites. Refused splenectomy previously. 5. MARC (obstructive sleep apnea) - ICD9: 327.23, ICD10: G47.33 Symptoms improved on nightly CPAP. 6. Hypothyroidism, unspecified type - ICD9: 244.9, ICD10: E03.9 Controlled on current regimen. F/u with endocrinology 7. Chronic insomnia - ICD9: 780.52, ICD10: F51.04 Improved with doxepin. 8. Obesity (BMI 30-39.9) - ICD9: 278.00, ICD10: E66.9 Stable - Behavioral intervention 9. Primary testicular hypogonadism - ICD9: 257.2, ICD10: E29.1 Managed by endocrinology. Will f/u recommendations. 10. Need for vaccination - ICD9: V05.9, ICD10: Z23 - HEP A-HEP B VACCINE (TWINRIX) - HEP A-HEP B VACCINE (TWINRIX) - HEP A-HEP B VACCINE (TWINRIX) 11. Secondary esophageal varices without bleeding (HCC) - ICD9: 456.21, ICD10: I85.10 See above. 12. Recurrent major depressive disorder, in remission (HCC) - ICD9: 296.35, ICD10: F33.40 Stable on current regimen. Julián Urias MD documented in this encounterToledo Hospital04-24-2023 Miscellaneous Notes* Telephone Encounter - Rosette Millan RN - 06/23/2022 12:58 PM EDT Called and informed patient that lab orders were in the computer. Advised he could go to any F outpatient lab to have them drawn. Patient states understanding. Denies further questions or concerns at this time. Rosette Millan RN * Telephone Encounter - Rosette Millan RN - 06/18/2022 11:54 AM EDT Patient's last OV was on 04/12/21. PLAN: -Check CBC, BMP, hepatic function panel, and INR to calculate his meld score -Check hepatitis panel, autoimmune panel, iron studies, AMA, alpha-1 antitrypsin, ceruloplasmin, and celiac panel to work-up other etiologies -Check ultrasound with elastography -Repeat EGD after 1 year -Check hepatitis A and hepatitis B status and immune if he is not vaccinated against both -Repeat colonoscopy after 5 years given history of tubular adenoma -Advised to lose weight (10% of current weight) Reviewed the blood work ordered following the OV. Pended the numerous orders. There were a few that may have had name changes last year. Was called IGG - Pended order Immunoglobulin G Subclasses Serum Was called Prothrombin Time/PT - Pended order Prothrombin Time I could not find comparable orders for the following two tests: Hep B Surf AG Quant Mitochondrial AB PNL Scrn Please place orders if these tests are wanted. Patient's last EGD was on 03/13/21. According to plan above, he would be due for another procedure. Would you like him to have EGD? Lastly, patient was supposed to have fibroscan done at [facility]. Per the OV note from OV with Dr. Wong on 05/23/22: Was to have a FibroScan of the liver but not clear that it was completed. Liver biopsy was advised but he declined since he wanted to have the surgery for urethral stricture done prior to doing any more testing. Dr. Riggs - Please review and sign lab orders if appropriate. If patient needs EGD, fibroscan, orliver biopsy these orders will need to be added. If you would like to see patient for an OV prior to any testing, please advise. Rosette Millan RN * Telephone Encounter - Waleska Mariely - 06/18/2022 10:37 AM EDT The patient @ [phone], is requesting for Dr Riggs, to re order the GI tests that the patientwas not able to get done & the orders have . documented in this encounterToledo Hospital04-06-2023 History of Present illness Narrative* Reef Karen Sauceda RT(R) - 06/05/2022 9:00 AM EDT Radiology Service Progress Note DATE OF SERVICE: June 05, 2022 TIME: 3:51 PM PATIENT IDENTITY VERIFICATION COMPLETED USING TWO (2) STANDARD IDENTIFIERS: Name and Date of confirmed by patient verbally. FALL SCREENING: Has the patient had 2 falls in the last year or 1 fall with injury or currently using an Ambulatory Assistive Device (Walker, Cane, Wheelchair, Crutches, etc.)? No PATIENT GENDER DATA: Male PATIENT RELEVANT IMPLANT DATA REVIEWED: Yes ALLERGIES: Reviewed and unchanged CONTRAST ALLERGY: NO. EXAM: CT -CONTRAST INDUCED NEPHROPATHY RISK FACTORS: Not applicable CREATININE: Creatinine Date Value Ref Range Status 04/10/2022 0.70 (L) 0.73 - 1.22 mg/dL Final 12/25/2021 0.83 0.73 - 1.22 mg/dL Final 07/17/2021 0.92 0.73 - 1.22 mg/dL Final Estimated Glomerular Filtration Rate Date Value Ref Range Status 04/10/2022 111 >=60 mL/min/1.73m Final Comment: Estimated Glomerular Filtration Rate (eGFR) is calculated using the 2020 CKD-EPI creatinine equation. This equation utilizes serum creatinine, sex, and age as parameters. The creatinine assay has traceable calibration to isotope dilution- mass spectrometry. Refer to KDIGO guidelines for clinical interpretation. In patients with unstable renal function, e.g. those with acute kidney injury, the eGFRmay not accurately reflect actual GFR. eGFR- Date Value Ref Range Status 02/12/2021 >60 Final P.O.C.T. RESULTS: POC done: Yes, See Lab Tab June 05, 2022 TREATMENT: N/A PERIPHERAL IV DATA: Ambulatory: A peripheral IV was started in the Left antecubital site with a Angio cath: 22 gauge. RADIOLOGY DEPARTMENT: CT; Exam(s) Completed: Abdomen/Pelvis SIGNATURE: RT Jean Claude(R) PATIENT NAME: Hal Blancas DATE: June 05, 2022 TIME: 3:51 PM documented in this encounterToledo Hospital03-24-2023 History of Present illness Narrative* Dexter Wong, DO - 05/23/2022 12:06 PM EDT Diagnosis: 1) Splenomegaly. 2) Thrombocytopenia. 3) LA. 4) H/O VTE. 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 Underwent evaluation with cystoscopy and in January 2004 for a 6 month history of intermittent gross hematuria associated with passing of some clots. Developed a DVT of the left calf in 01/2004 following 2 week cast to the leg for partial tear of the Achilles tendon. US 02/28/2004 showed acute deep venous thrombosis involving the left peroneal vein without apparent extension into the left tibioperoneal trunk. Patent and compressible left greaterand lesser saphenous veins. According to the record, he was hospitalized to receive unfractionated heparin and conversion to Coumadin. Evidently a CT scan revealed potential pulmonary embolism in the right upper lobe. Right femoral inferior vena cava filter placement on July 01, 2004--evidently placed due to recurringgross hematuria and need for surgical repair of Achilles tendon. In the recovery room he had tingling paresthesias in both legs and was unable to move his legs. There was concern about possible embolus to the spinal cord and he was transferred to [facility]. Workup was entirely unremarkable. MRI of the spinal cord showed no evidence of embolic injury or transverse myelitis. His symptoms gradually abated and he was able to be out of bed. 07/04/2004--He had a antiphospholipid antibody panel which showed an IGG of 63 which is markedly elevated with an IGM of 37. 08/2004--2 of 3 criteria met for lupus anticoagulant. Patient had a positive screening test and demonstration of phospholipid dependence into assays including DR KESSLER phospholipid confirm ratio and platelet neutralization. Mixing studies did not demonstrate the presence of inhibitor. Evaluated for pneumaturia 03/2005. 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 He then underwent a barium enema which demonstrated barium in his urine on xray of the urinal. There was no air or contrast seen in the bladder during BE or CT scan. 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 Colonsocopy on March 18 was unremarkable. Underwent exploration on March 19. No abnormalities were found. An incidental appendectomy was performed. Was then evaluated initially by urology at [facility] 05/2005. Notes indicate he was on Coumadin atthat time. Ultimately ended up undergoing sequential orchiectomy for continued testicular pain. He also continued to have obstructive voiding symptoms. He was followed by Dr. Batista 2006 through 2012 for his history of lupus anticoagulant pulmonary embolism. In 2012 and a follow-up visit it was noted that he had self discontinued Lovenox injections andwas diagnosed with recurrent pulmonary emboli when admitted to [facility] for pneumonia. Patient was advised at that time to resume Lovenox injections. No follow-up in this office until 2016. The patient had worsening left upper quadrant pain over the last couple months prior to evaluation here 2016. It was bad enough that he went to the emergency room on 04/10/2016. A CT scan the abdomen and pelvis was performed--was noted to have hepatomegaly and severe splenomegaly, but no measurementsrendered. Had bone marrow biopsy 04/2016 that showed a normocellular bone marrow with trilineage hematopoiesisalong with erythroid hyperplasia and adequate megakaryocytes. No evidence of lymphoma or lymphoproliferative disorder. I had ordered a liver vascular ultrasound at that time to assess for portal hypertension. Patient did not schedule it for approximately 6 months later. There was no clear evidence of liver disease orincrease important pressures that would have led to splenomegaly. Since spleen size was stable at that time (10/2016) compared to earlier in the year and bone marrow biopsy was unremarkable I suggested monitoring with ultrasound was reasonable. Patient did not get back to us with his decision on this. Patient was seen by Dr. Corado at the department of hematology [facility] in July 2019. Consultation with general surgery for splenectomy was advised. Patient declined. He is opted for expectant management knowing that there may be a lymphoproliferative disorder undiagnosed. Presents for ongoing hematologic management. Interim history: Saw about a year ago. He had EGD and colonoscopy 03/13/2021. On EGD he was found to have grade 2 esophageal varices. Mucosa of the stomach and examined portions of the duodenal mucosa were normal. Biopsy was obtained from the gastric mucosa. On colonoscopy was found to have one 5 mm polyp in the descending colon which was removed with hot snare. It was resected and retrieved. Nonbleeding internal hemorrhoids were observed. Otherwise the colonic mucosa was normal. Pathology: A. Antrum, biopsy - Oxyntic mucosa with no significant diagnostic alteration. - No morphologic evidence of Helicobacter pylori organisms. B. Descending colon polyp, biopsy - Tubular adenoma. Was seen by gastroenterology 04/2021. Ultrasound liver and spleen demonstrated stable splenomegaly at 23 cm. The echotexture of the liver was normal, homogeneous. Echogenicity was normal. Surface contour was smooth. No lesions were identified. Was to have a FibroScan of the liver but not clear that it was completed. Liver biopsy was advised but he declined since he wanted to have the surgery for urethral stricture done prior to doing any more testing. Underwent Anterior urethroplasty of bulbous and membranous urethra with ventral onlay of buccal mucosal graft and dorsal partial thickness augmented anastomotic repair of bulbar urethra 07/16/2021. Subsequent excision fo suprapubic tube tract fistula 01/15/2022. Able to urinate normally now. Feels he can void to completion. Normal appetite. Taste has been altered since had Covid about 2 years ago. Can't tolerate a lot foods that he used to enjoy. Can smell. No reflux or nausea. Post prandial lower abdominal pain. Bowels moving regularly. Formed stools. No black or bloody stools. No recurrent fever. No drenching night sweats. On Lovenox injections daily for history of lupus anticoagulant. He denies unusual bleeding and unexplained bruising. PMH, medications and allergies as below personally reviewed by me today. Any changes documented in appropriate section. ROS: Constitutional: Denies episodes of fever and night sweats. Neuro: Denies LOWE, vertigo and imbalance. Chronic numbness left arm and leg--since fall from horse years ago--stable. HEENT: No recent change in voice, vision or hearing. Resp: Denies and hemoptysis. Denies shortness of breath at rest. CVS: Denies exertional chest pain, PND, orthopnea and LE edema. GI: Denies symptoms of stomatitis. Denies dysphagia and odynophagia. Denies reflux, n/v, change in bowel habits. Endo: Gets hot flashes--continue on testosterone replacement. Denies polyuria and polydipsia. Denies heat and cold intolerance. Musculoskeletal: Chronic lower back pain--stable. No other joint pain. Derm: Denies rash. Denies jaundice and diffuse pruritis. Heme: See above. Psych: Normal mood. PHYSICAL EXAM: Vitals: Blood pressure 100/67, pulse 87, temperature 36.3 C (97.3 F), height 187 cm (6' 1.62), weight 114.3 kg (252 lb), SpO2 97 %. Well-appearing and in no acute distress. EYES: Sclerae are anicteric bilaterally. ENT: Oral mucosa is unremarkable. No evidence of oral mucosal bleeding or gingival bleeding. LYMPHATIC: There is no palpable cervical or supraclavicular adenopathy. RESPIRATORY: Inspiratory breath sounds are of normal intensity in all patel. No rales, wheezes or rhonchi. CARDIOVASCULAR: Rhythm is regular. Normal intensity S1/S2. ABDOMEN: The abdomen is nondistended. There is tender splenomegaly--can palpate to near the left pelvis. Firm. SKIN: No jaundice or rash. No petechiae. No spider angiomata. No noticeable bruising on the anterior lower abdomen from Lovenox injections. 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 No focal motor weakness. LABORATORY DATA: Component Latest Ref Rng & Units 12/25/2021 01/01/2022 04/10/2022 05/23/2022 WBC 3.70 - 11.00 k/uL 3.23 (L) 2.58 (L) 2.29 (L) 2.51 (L) RBC 4.20 - 6.00 m/uL 4.67 4.30 4.30 4.45 Hemoglobin 13.0 - 17.0 g/dL 13.7 12.8 (L) 12.2 (L) 12.4 (L) Hematocrit 39.0 - 51.0 % 39.1 35.4 (L) 34.6 (L) 36.4 (L) MCV 80.0 - 100.0 fL 83.7 82.3 80.5 81.8 MCH 26.0 - 34.0 pg 29.3 29.8 28.4 27.9 MCHC 30.5 - 36.0 g/dL 35.0 36.2 (H) 35.3 34.1 RDW-CV 11.5 - 15.0 % 16.5 (H) 16.0 (H) 15.4 (H) 15.2 (H) Platelet Count 150 - 400 k/uL 63 (L) 70 (L) 54 (L) 53 (L) MPV 9.0 - 12.7 fL 9.0 9.5 8.8 (L) 8.9 (L) Neut% % 49.3 54.5 45.4 48.1 Abs Neut (ANC) 1.45 - 7.50 k/uL 1.59 1.41 (L) 1.04 (L) 1.21 (L) Lymph% % 30.3 29.5 36.2 34.7 Abs Lymph 1.00 - 4.00 k/uL 0.98 (L) 0.76 (L) 0.83 (L) 0.87 (L) [place]% % 9.3 7.0 9.2 10.8 Abs [place] <0.87 k/uL 0.30 0.18 0.21 0.27 Eosin% % 9.9 7.8 8.3 5.6 Abs Eosin <0.46 k/uL 0.32 0.20 0.19 0.14 Baso% % 1.2 0.8 0.9 0.8 Abs Baso <0.11 k/uL 0.04 <0.03 <0.03 <0.03 Immature Gran % % 0.0 0.4 0.0 0.0 IMMATURE GRANS (ABS) <0.10 k/uL <0.03 <0.03 <0.03 <0.03 NRBC /100 WBC 0.0 0.0 0.0 0.0 Absolute nRBC <0.01 k/uL <0.01 <0.01 <0.01 <0.01 DTYPE Auto Auto Auto Auto Component Latest Ref Rng & Units 02/13/2020 Beta 2 Glycoprotein, IgG <20 SGU 26 (H) Beta 2 Glycoprotein, IgM <20 SMU 29 (H) Cardiolipin Ab, IgG <15.0 GPL 33.9 (H) Cardiolipin Ab, IgM <12.5 MPL 40.6 (H) Cardiolipin Ab, IgA <12.0 APL <9.0 APTT Screen 24.0 - 35.1 sec 29.3 Thrombin Time <18.6 sec <16.8 Interpretation(Lupus Anticoagulant) (NOTE) PT Sec 9.7 - 13.0 sec 12.0 PT INR 0.9 - 1.3 1.1 APTT 23.0 - 32.4 sec 25.6 ASSESSMENT/PLAN: (R16.1) Splenomegaly (primary encounter diagnosis) (D69.6) Thrombocytopenia (HCC) (D70.9) Neutropenia, unspecified type (HCC) (K76.0) Hepatic steatosis (R10.30) Lower abdominal pain (D68.62) Lupus anticoagulant disorder (HCC) Assessment: -In summary the patient is a 51 year-old male who has a past medical history significant for lupus anticoagulant, unexplained symptomatic splenomegaly and recurrent VTE. -PCR for factor V Leiden negative in 08/2004 (has at least 2 siblings who have PCR proven factor V Leiden). -Most recent evaluation for LA positive 03/09/2019. Two ISTH criteria positive with both IgG and IgM for ACL and antibeta 2 glycoprotein antibodies + January 2020. -Was evaluated by hematology main campus and declined splenectomy several years ago. -Repeat CT of abdomen pelvis in December 2020 showed stable spleen size when compared to August 2019 but there were varices (which could be due to splenomegaly in the absence of cirrhosis) needed to rule out cirrhosis as a cause. -Grade II esophageal varices on EGD 03/2021 -Saw GI, but didn't complete work up including FibroScan and liver biopsy. -He has worsening splenomegaly by exam and slow decline in platelet count and has developed intermittent lower abdominal pain. -Neutropenia varies but typically mild. No infectious complications. -This is a high risk patient who requires ongoing anticoagulation but is developing worsening thrombocytopenia which is either a function of splenomegaly or antiphospholipid antibody syndrome itself for both although the former is more likely since he has been on continued anticoagulation. -Discussed all the above with him in detail today. He is now more amenable to undergoing continued work-up since he has successfully undergone urethral stricture repair. He remains limited in his ability for transportation. Plan: -Continue Lovenox. -CT A/P when able. -Continue monthly CBC. -Will refer back to hepatology once CT resulted. -Will need vascular medicine consultation for IVC filter if platelets continue to decline. Portions of this documentation were copied and pasted from previous office visit notes in order to provide a cohesive continuity of the history. The note has been reviewed and edited and updated as necessary. I spent a total of 45 minutes on the date of the service which included preparing to see the patient, [id number] patient care, obtaining and/or reviewing separately obtained history, performing a medically appropriate examination, counseling and educating the patient/family/caregiver, ordering med ications, tests, or procedures, communicating results to the patient/family/caregiver, and care coordination (not separately reported). Dexter Wong DO [facility]23 Miscellaneous Notes* Telephone Encounter - Lupe Byrd - 04/10/2022 2:24 PM EST Spoke with patient, advising below, and scheduled. Patient specifically asked for a morning appointment. Lupe Byrd * Telephone Encounter - Dexter Wong DO - 04/10/2022 1:58 PM EST His blood counts are stable. I have not seen him for an office visit for a while. Please schedule him to see me next available established complex that works for him. Dexter Wong DO documented in this [facility]01-20-2023 Miscellaneous Notes* Telephone Encounter - Chelsey Koroma LPN - 03/21/2022 8:47 AM EST Patient phones requesting refills as follows: Requested Prescriptions Pending Prescriptions Disp Refills metFORMIN (GLUCOPHAGE) 1,000 mg tablet 180 tablet 1 Sig: Take 1 tablet by mouth twice daily with meals. . JANETTE-12/25/21 Labs-01/01/22Dec-06/25/22 med filled 09/06/21 Please review and advise. Chelsey Koroma LPN documented in this [facility]01-20-2023 Miscellaneous Notes* Telephone Encounter - Chelsey Koroma LPN - 03/21/2022 8:46 AM EST Patient phones requesting refills as follows: Requested Prescriptions Pending Prescriptions Disp Refills lisinopril (ZESTRIL, PRINIVIL) 5 mg tablet 90 tablet 1 Sig: Take 1 tablet by mouth once daily. JANETTE-12/25/21 Labs-01/01/22Dec-06/25/22 med filled 09/06/21 Please review and advise. Chelsey Koroma LPN documented [facility] this [facility]01-05-2023 Miscellaneous Notes* Telephone Encounter - Francine Purdy LPN - 03/06/2022 10:16 AM EST Patient phones requesting refills as follows: Requested Prescriptions Pending Prescriptions Disp Refills atorvastatin (LIPITOR) 10 mg tablet 90 tablet 1 Sig: Take 1 tablet by mouth daily at bedtime. For cholesterol. JANETTE 12/25/21 NOV 06/25/22 Please review and advise. Francine Purdy LPN documented in this [facility]12-23-2022 Miscellaneous Notes* Telephone Encounter - Francine Purdy LPN - 02/21/2022 9:03 AM EST Patient phones requesting refills as follows: Requested Prescriptions Pending Prescriptions Disp Refills levothyroxine (SYNTHROID) 100 mcg tablet 90 tablet 1 Sig: Take 1 tablet by mouth once daily. JANETTE 12/25/21 NOV 06/25/22 Please review and advise. Francine Purdy LPN documented in this [facility]11-30-2022 Miscellaneous Notes* Telephone Encounter - Analy Monroy APRN.CNP - 01/29/2022 4:39 PM EST Images from the original note were not included. Hal Blancas sent email to inquire whether incision from cystostomy closure on 01/14/2022 is healing appropriately. Called Hal Blancas. He reports little spots of thick drainage on clothes, but not so much thathe has to keep a dressing over incision and no longer leaking urine. He is mostly keeping pants below incision so it breathes. Pulled pants up higher when he went out today, and it rubbed a scab off.He reports that Dr. Solares told him he could follow up PRN. Reassured Hal Blancas that incision doesn't look infected. Yellow slough should fall off, sutures will dissolve, and incision should fill in over several weeks. Encouraged him to keep it clean with soap and water. Encouraged him to call if he is still having yellow oozing and slough after a couple more weeks. We could apply some silver nitrate in clinic. Analy Monroy APRN.HAKAN documented in this [facility]11-02-2022 Miscellaneous Notes* Telephone Encounter - Kerrie Smith DO - 01/01/2022 2:47 PM EDT -For planned surgery, recommend holding PM dose of Lovenox the night prior to surgery and AM dose on the day of surgery -Recommend aggressive pharmacomechanical VTE prophylaxis post-operatively including: _Lovenox 40 mg daily or heparin 5000 units TID when safe from a surgical perspective _IPCs, Yanna hose/compression socks _Early ambulation, PT/OT _Adequate diet and hydration -Resume full therapeutic anticoagulation when safe from a surgical perspective * Telephone Encounter - Alpa Vergara APRN.CNP - 01/01/2022 1:31 PM EDT Pt is scheduled 01/14/2022 at for closure of cystostomy. Pt hx of PE/DVT, +lupus anticoagulant disorder. Previous surgery 06/2021 you have pt hold PM and AM dose of Lovenox, would you like him to repeat these instructions for upcoming surgery? documented in this [facility]11-02-2022 Instructions* Patient Instructions* Alpa Vergara APRN.CNP - 01/01/2022 1:04 PM EDT PATIENT PREOPERATIVE INSTRUCTIONS Rainer Solares MD has scheduled you for your procedure at this surgery center: [facility] [place] [facility] Scheduling Office: [phone] --[address] [place] [address]. Please read below carefully for your personalized instructions. Dietary Restrictions: - No solid food after midnight. - You may have 12 ounces of clear liquids (water, clear juices such as apple juice or gatorade, carbonated beverages, clear tea, black coffee, jello) until 2 hours before scheduled arrival at facility. No red/purple coloring and no creamer/sugar Medications: Unless instructed differently below, stay on all of your medications until your surgery. Approved medications to take the morning of surgery with a sip of water: Albuterol, Atorvastatin, Duoneb, Levothyroxine Do not take Lisinopril the morning and/or evening prior to surgery - No diabetic medication the morning of surgery. - Accucheck day of surgery. If you take any medications for erectile dysfunction-Cialis (Tadalafil), Levitra, Staxyn (Vardenafil) Viagra (Sildenenafil please do not take these for 48 hours before surgery. If you start any new medications after today's visit, please contact the surgeon's office. Blood Thinning Medications: - Stop NSAIDS (Ibuprofen, Advil, Aleve, Motrin, Celebrex, Mobic, etc.) 7 days before surgery, as directed by your surgeon. - Stop Aspirin 7 days before surgery, as directed by your surgeon. - Stop Vitamin E, ALL multi-vitamins, herbals and dietary supplements 7 days before surgery. - You may take Tylenol (Acetaminophen) or any of your pain medications that do not contain aspirin or NSAIDS as needed. - STOP LOVENOX 24 hours prior to surgery Important Reminders: - If you use CPAP/BIPAP, bring the machine with you to the surgery center. - If you are prescribed inhalers for breathing, continue using them. - Candy, mints, and tobacco products are NOT permitted the morning of surgery. - Hearing aids, dentures and glasses may be worn the morning of surgery. - NO jewelry, body piercings, makeup, hairpins or contacts are to be worn the day of surgery. If you develop symptoms such as a fever, cold, or flu, or have other changes to your health within TWO DAYS of scheduled surgery or the morning of surgery, please contact the surgery center above. Personal Belongings: -Please have photo ID and insurance cards. -If you do not have a copy of advance directives on file with us, please bring a copy with you on the day of surgery. - Leave ALL valuables and money at home or with family members. For Outpatient Procedures: - YOU MUST HAVE A RESPONSIBLE FOREST EXAMINER TAKE YOU HOME. A PARAMEDICAL AIDE OR SINKER WINDER CANNOT BE MADE A RESPONSIBLE FOREST EXAMINER. - We recommend that a responsible person stays with you overnight to take care of you. - You cannot stay in a hotel alone after outpatient surgery. You will not be permitted to have yoursurgery, if you do not have someone to take care of you. Arrival Time for Surgery: - To obtain your arrival time for surgery, call your physician's office the day before your surgery. - If your surgery is scheduled for Thursday, call the Thursday before. Your surgeon s master scheduler will tell you what time to call the office. - If you have not reached the departmental master scheduler by 5 P.M., call [phone] after 5 P.M. the day before your surgery. Please be aware that emergency situations arise, which may delay or change your surgical time. If this happens, we will notify you as soon as possible and regret any inconvenience. If you already have an Advance Directive, please fax a copy to [phone] or email to for it to be added to your chart. If you do not have an Advance Directive, you can find the appropriate form and more information at [email or web address]. We recommend that youcomplete the Advance Directive form found on the website and bring it with you the day of your surgery. It can be witnessed and scanned into your chart that day. Alpa Vergara APRN.CNP documented in this encounterT[facility]11-02-2022 History and physical note * Alpa Vergara APRN.CNP - 01/01/2022 1:00 PM EDT HISTORY AND PHYSICAL EXAMINATION SERVICE DATE: 01/01/2022 SERVICE TIME: 1:47 PM PRIMARY CARE PHYSICIAN: Julián Urias MD REASON FOR VISIT: Hal Blancas is a 51 year old male who is scheduled for at the request of Dr. Rainer Solares for. My final recommendation will be communicated back to the requesting physician by wayof shared medical record or letter. 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 Lupus Anticoagulant Disorder (Hcc) Personal History of Dvt (Deep Vein Thrombosis) Personal History of Pe (Pulmonary Embolism) Thrombocytopenia (Hcc) Splenomegaly Hepatic Steatosis Preoperative Examination History of Medication Noncompliance Diabetes Mellitus Type II (Hcc) Hypothyroidism Secondary Esophageal Varices Without Bleeding (Hcc) COVID-19 Immunization Status COVID-19 VACCINE (Series Information) Completed 12/25/2021 Imm Admin: COVID-19 booster vaccine, age 12+ yr, bivalent (PFIZER-BIONTECH) 12/19/2020 Imm Admin: COVID-19 original vaccine, age 12+ yr, monovalent (PFIZER- BIONTECH - PURPLE TOP) 11/28/2020 Imm Admin: COVID-19 original vaccine, age 12+ yr, monovalent (PFIZER- BIONTECH - PURPLE TOP) CHIEF COMPLAINT: Pre-op exam HPI: DP is a 51 yo seen for PAC due to scheduled above surgery because of male urethral stricuture/urinary retention. 11/27/2021 Dr. Solares HPI: Hal Blancas is a 51yo male with PMH of penile urethral stricture managed with SPT. Had tubeplaced nearly 2 years ago and lost to follow up. Medical risks include splenomegaly, lupus anticoagulant, esoph varices, diabetes, thrombocytopenia. Hal Blancas had the following procedure with Dr. Solares on 07/16/2021: Anterior urethroplasty of bulbous and membranous urethra with ventral onlay of buccal mucosal graft [place] of bilateral buccal mucosa graft size 5.5 cm by 1.5 cm Reconfiguration of both grafts to make a 5.5 cm x 2.5 cm graft Dorsal partial thickness augmented anastomotic repair of bulbar urethra Cystoscopy Suprapubic catheter tube exchange Hal Blancas had VCUG on 08/06/21 and SPT removed on 08/09/21. Patient was last seen by Dr. Amador on 08/23/2021 for continued drainage from old SPT site. Planned for surgical closure in August; however, site spontaneously closed and patient states there is no further drainage. Hal Blancas states today he is feeling well. Endorses scant leakage during the day from the SPT site when his bladder is overfull. Daytime void 3-4 times per day. Does not wear a pad over the site, just changes his clothes. Has not tried to void more frequently because he is typically engaged in an activity and doesn't want to stop to void. Nocturia x1-2 without taking pain meds or medication to helpwith sleep. Area the size of an orange. When he does take pain meds or sleeping medication, he putsa towel over the old SPT site he will not get up to void at all. On those days the towel is saturated with urine in the morning. Hal Blancas states that his urine stream is strong, empties his bladder quickly. Denies s/s UTI since surgery. Initially had issues with slow healing of mouth graft sites. States today they are completely healed. Able to wear his dentures now. Sometimes food gets stuck in the scar tissues. Back to performing activities of daily living without restriction. UA: PVR: 0 ml REVIEW OF SYSTEMS: General: No weight loss, malaise or fevers. Neurological: +intermittent left sided weakness, worked by neuro, etiology unknown. No history of TIA's, stroke, LATRINE CLEANER tumor, impaired sensorium, hemiplegia, paraplegia or quadraplegia. No neurologicalsymptoms or problems. Respiratory: +recurrent bronchitis Positive for: obstructive sleep apnea and CPAP/BiPAP compliant. Negative for: asthma, COPD, pneumonia within 6 weeks, tobacco use and URI < 2 weeks. Cardiovascular: Positive for: anticoagulation therapy (Lovenox), DVT/PE (IVC filter in place, follows Vascular), hyperlipidemia (on rx) and hypertension (on rx) Negative for: arrhythmia, atrial fibrillation, CAD, chest pain, CHF, congenital heart defect, recent NH, murmur/valvular heart disease, open heart surgery and valve surgery. GI: Positive for: esophageal varices <6 months and liver disease (cirrhosis, enlarged liver, following gastro) Negative for: abdominal pain, dysphagia, GERD, hepatitis, irritable bowel syndrome, inflammatory bowel disease, nausea, pancreatitis, vomiting and ETOH >2 drinks/day. : +SEE HPI Positive for: BPH. Negative for: nephrolithiasis, renal failure and urinary tract infection. Endocrine: Positive for: diabetes mellitus and hypothyroidism (on rx). Patient's diabetes mellitus is controlled by oral agents. Hematology: +thrombocytopenia 2/2 splenomegaly +lupus anticoag 04/12/2021 Dr. Riggs, [facility] gastro ASSESSMENT: Splenomegaly (primary encounter diagnosis) Portal hypertension with esophageal varices (hcc) Thrombocytopenia (hcc) Left lower quadrant abdominal pain Elevated bilirubin Elevated alkaline phosphatase level The patient likely has decompensated cirrhosis secondary to [place] given his splenomegaly, thrombocytopenia, hepatomegaly, and the presence of varices on recent endoscopy. We will obtain imaging studies and blood work to work-up his cirrhosis. He might need to undergo transjugular biopsy with portal pressure if his blood work/imaging study did not confirm the diagnosis PLAN: -Check CBC, BMP, hepatic function panel, and INR to calculate his meld score -Check hepatitis panel, autoimmune panel, iron studies, AMA, alpha-1 antitrypsin, ceruloplasmin, and celiac panel to work-up other etiologies -Check ultrasound with elastography -Repeat EGD after 1 year -Check hepatitis A and hepatitis B status and immune if he is not vaccinated against both -Repeat colonoscopy after 5 years given history of tubular adenoma -Advised to lose weight (10% of current weight) Positive for: chronic anti-coagulation/platelet meds. Negative for: transfusion of at least 4 units within 72 hours prior to surgery. Oncology: No history of CA metastasis, chemo within 30 days, or radiotherapy within 90 days. No history of oncological symptoms or problems. Psych: No history of psychiatric symptoms or problems. Musculoskeletal: Positive for: back pain. Skin: Negative for lesions, rash and itching. 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 Wong Hematuria work up in progress as of 09/24/04 Hepatomegaly Hypogonadism in male 2/[address] Luna Hypothyroidism Left-sided muscle weakness intermittent, has had extensive work up Obesity MARC (obstructive sleep apnea) Seeing Dr. Yin, using CPAP Osteopenia of neck of left femur 06/18/2020 Other cirrhosis of liver (HCC) 2/2 BANEGAS. Refused liver biopsy PMH - PAST MEDICAL HISTORY OF scrotal swelling Pulmonary embolism (HCC) 1999' Retention of urine, unspecified Snoring Splenomegaly Thrombocytopenia (HCC) Urethral stricture 2020 Urethral stricture s/p urethroplasty 06/2021. Vitamin D deficiency PAST SURGICAL HISTORY Procedure Laterality Date COLONOSCOPY 2009 COLONOSCOPY FLX DX W/COLLJ SPEC WHEN PFRMD 03/13/2021 1 small polyp-repeat in 5 years ESOPHAGOGASTRODUODENOSCOPY TRANSORAL DIAGNOSTIC 03/13/2021 grade II esophageal varices EXPLORATORY LAPAROTOMY CELIOTOMY W/WO BIOPSY SPX 03/2005 Laparotomy, exp; incidental appendectomy IVC FILTER PERCUTANEOUS 06/2004 IVC FILTER SURGICAL LAPAROSCOPY SURG CHOLECYSTECTOMY 06/08/2014 PAST SURGICAL HISTORY OF 1976 finger rt hand table saw dipj PAST SURGICAL HISTORY OF 11/2005 Bladder pacemaker PAST SURGICAL HISTORY OF Bilateral bilateral achilles repair PAST SURGICAL HISTORY OF 2006, 2007 bilateral orchiectomy, secondary to pain PAST SURGICAL HISTORY OF 2020 placement of suprapubic catheter PAST SURGICAL HISTORY OF N/A 07/16/2021 urethroplasty with BMG FAMILY HISTORY Problem Relation Age of Onset Colon Cancer Mother Diabetes Father unsure of how old Coronary Artery Disease Father Hypertension Father Diabetes Sister other (sleep apnea) Sister Diabetes Sister other (sleep apnea) Sister other (Trisomy 22) Daughter other (Trisomy 22) Son Social History Tobacco Use Smoking status: Former Packs/day: 2.00 Years: 2.00 Pack years: 4.00 Types: Cigarettes Quit date: 07/04/1987 Years since quittin.5 Smokeless tobacco: Never Vaping Use Vaping Use: Never used Substance Use Topics Alcohol use: Yes Comment: occasional- less than 1 drink per week Drug use: No Prior to Admission medications as of 01/01/22 1304 Medication Sig Last Dose Taking doxepin capsule 10 mg Take 1 capsule by mouth daily at bedtime. Taking Yes enoxaparin (LOVENOX) 120 mg/0.8 mL injection Inject 0.7 mL subcutaneously every 12 hours. Taking Yes metFORMIN (GLUCOPHAGE) 1,000 mg tablet Take 1 tablet by mouth twice daily with meals. . Taking Yes lisinopril (ZESTRIL, PRINIVIL) 5 mg tablet Take 1 tablet by mouth once daily. Taking Yes atorvastatin (LIPITOR) 10 mg tablet Take 1 tablet by mouth daily at bedtime. For cholesterol. Taking Yes levothyroxine (SYNTHROID) 100 mcg tablet Take 1 tablet by mouth once daily. Taking Yes acetaminophen (TYLENOL) 325 mg tablet Take 2 tablets by mouth every 6 hours as needed for pain. Taking Yes ACCU-CHEK GUIDE ME GLUCOSE MTR USE TO TEST BLOOD SUGAR Taking Yes testosterone enanthate (DELATESTRYL) 200 mg/mL injection Taking Yes blood sugar diagnostic (BLOOD GLUCOSE TEST) test strip Test blood sugar(s) 1 times daily. Dx: Type 2 DM - Controlled E11.9 Insulin: No Taking Yes Lancets lancets Test blood sugar(s) 1 times daily. Dx: Type 2 DM - Controlled E11.9 Insulin: No Taking Yes CPAP Patient would like to change DME closer to home. Needs mask and supplies. Current PAP device only 3 months old. Need download from device. Lifetime supplies. Taking Yes Irrigation Set irst 1 kit to flush SPT as needed Taking Yes Syringe Disposable, Irrigation (IRRIGATION SYRINGE) syrg Use to flush SPT with Irrigation fluid Taking Yes sodium chloride 0.9 % IRRIGATION Use irrigation solution to flush SPT Taking Yes ipratropium-albuterol (DUONEB) 0.5 mg-3 mg(2.5 mg base)/3 mL nebu Inhale 3 mL as instructed every 4hours as needed (wheezing). Use over 5-15minutes per nebulizer. Taking Yes cholecalciferol, Vitamin D3, (VITAMIN D3) 1,250 mcg (50,000 unit) cap capsule Take 1 capsule by mouth one time a week. Taking Yes Syringe with Needle, Disp, 3 mL 22 gauge x 1 syrg Use as directed to inject testosterone once a month Taking Yes COMPOUNDED PRESCRIPTION Night bag for Baum catheter Taking Yes Urinary Bag (URINARY LEG BAG) Misc Misc Use as needed Taking Yes Catheter (BARD COUDE TIP CATHETER) 16 Fr Misc Misc to be used as needed Taking Yes ALBUTEROL 90 MCG/ACTUATION AEROSOL INHALER Inhale two(2) puffs four(4) times a day for wheezing andshortness of breath. Taking Yes No medication comments found. ALLERGIES Allergen Reactions Piperacillin Rash Vancocin [Vancomyci* Rash Latex Rash Sodium Hypochlorite* Rash Objective PHYSICAL EXAM: General: alert and oriented (x3), healthy appearance and obese. Pertinent negatives noted - not distressed. +flat affect. Skin: normal color, no rash or lesions. HEENT: EOM intact and pupils equal round. Pertinent negatives noted - no carotid bruit. Cardiovascular: regular rate and rhythm, normal S1 and S2, no rub, murmurs, or gallop. Respiratory: normal breath sounds, no wheezes or crackles. No chest wall deformity or tenderness. Abdomen: soft. Pertinent negatives noted - not tender. Extremities: no deformity, no edema or tenderness, no joint swelling or clubbing. Neurological: normal cognition and motor skills. Gait normal. No weakness or sensory deficit. PAIN ASSESSMENT: VITALS: BP 108/56 Pulse 89 Temp (Src) 98 (Temporal) Resp 16 Ht 6' 2 (1.88m) Wt 246 lb (111.6kg) SpO2 97% BMI 31.57 kg/(m^2). Diagnostic tests reviewed for today's visit: Lab Value Units Date High Low HB 13.7 g/dL 12/25/2021 17.0 13.0 HCT 39.1 % 12/25/2021 51.0 39.0 WBC 3.23 k/uL 12/25/2021 11.00 3.70 PLT 63 k/uL 12/25/2021 400 150 NA 135 mmol/L 12/25/2021 144 136 K 4.4 mmol/L 12/25/2021 5.1 3.7 GLUC 148 mg/dL 12/25/2021 99 74 BUN 14 mg/dL 12/25/2021 24 9 CREAT 0.83 mg/dL 12/25/2021 1.22 0.73 PTSEC No results within date range. INR No results within date range. APTT No results within date range. ALT 26 U/L 12/25/2021 54 10 AST 31 U/L 12/25/2021 40 14 TBILI 1.4 mg/dL 12/25/2021 1.3 0.2 TSH No results within date range. Lab Value Units Date High Low HCGQT No results within date range. UHCG No results within date range. HCG, BODY* No results within date range. Lab Value Units Date High Low ABORHD No results within date range. ABSCREEN No results within date range. Hemoglobin A1C (%) Date Value 12/25/2021 5.6 07/02/2021 5.2 02/12/2021 6.9 07/31/2020 7.3 03/16/2019 6.0 04/30/2017 5.2 07/29/2007 4.7 Hemoglobin A1C (POCT) (%) Date Value 06/02/2018 5.8 Recent Results (from the past 8760 hour(s)) ECG COMPLETE Collection Time: 07/15/21 7:13 AM Result Value Ventricular Rate 77 Atrial Rate 77 P-R Interval 162 QRS Duration 102 QT Interval 398 QTC Calculation ([place]) 450 Calculated P [place] 23 Calculated R [place] -7 Calculated T [place] 39 Impression NORMAL SINUS RHYTHM NORMAL ECG Confirmed by ADRIENNE JURADO MD ([id number]) on 07/17/2021 9:00:26 PM No results found for this or any previous visit (from the past 42857 hour(s)). Assessment History of pulmonary embolism Assessment: AC on Lovenox, follows vascular, received AC instructions Polycythemia, secondary Assessment: hx CBC with diff: WBC 3.23 12/25/2021 RBC 4.67 12/25/2021 Hemoglobin 13.7 12/25/2021 Hematocrit 39.1 12/25/2021 MCV 83.7 12/25/2021 MCH 29.3 12/25/2021 MCHC 35.0 12/25/2021 RDW-CV 16.5 12/25/2021 Platelet Count 63 12/25/2021 MPV 9.0 12/25/2021 Neut% 49.3 12/25/2021 Lymph% 30.3 12/25/2021 [place]% 9.3 12/25/2021 Eosin% 4.4 04/03/2021 Baso% 1.2 12/25/2021 Abs Neut (ANC) 1.59 12/25/2021 Abs [place] 0.30 12/25/2021 Abs Eosin 0.32 12/25/2021 Abs Baso 0.04 12/25/2021 Left hemiparesis (HCC) Assessment: while hospitalized for PE and then again during filter procedure, chronic left side weakness that is mild and intermittent, pt noted unknown etiology and was worked up by neurology [facility] MARC (obstructive sleep apnea) Assessment: c/w CPAP DEPRESSION Assessment: denies any current issues, flat affect Chronic interstitial cystitis Assessment: hx 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, 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, 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 Thrombocytopenia (HCC) Assessment: secondary to splenomegaly, new labs pending, pt runs stable in 50's-60's Platelet Count Date Value Ref Range Status 12/25/2021 63 (L) 150 - 400 k/uL Final Comment: No clot detected Splenomegaly Assessment: following gastro and hematology, gastro has recommended splenectomy but pt declined, therefore thrombocytopenia still present, unchanged size 12/2020 CT Primary testicular hypogonadism Assessment: s/p bilateral orchiectomy due to scrotal pain, managed with testosterone injections Personal history of DVT (deep vein thrombosis) Assessment: hx, TE sent to vascular for pre-op AC instructions confirmation Obesity (BMI 30-39.9) Assessment: Body mass index is 31.58 kg/m . Lupus anticoagulant disorder (HCC) Assessment: hx DVT/PE, following [facility] hematology and vascular, TE sent to confirm AC instructions Hypothyroidism Assessment: stable on rx Hepatic steatosis Assessment: has pending liver bx, ordered earlier this year, still have not completed. EGD by Dr. Riggs which lead to likely diagnosis of cirrhosis 2/2 BANEGAS. EGD to be repeated in 1 year. Ordered liver biopsy which patient has not completed yet. Albumin (g/dL) Date Value 12/25/2021 4.5 Bilirubin, Total (mg/dL) Date Value 12/25/2021 1.4 (H) Bilirubin, Conjug (mg/dL) Date Value 01/11/2021 0.3 (H) Alkaline Phosphatase (U/L) Date Value 12/25/2021 89 AST (U/L) Date Value 12/25/2021 31 ALT (U/L) Date Value 12/25/2021 26 Protein, Total (g/dL) Date Value 12/25/2021 6.7 Diabetes mellitus type II (HCC) Assessment: controlled on oral agent Hemoglobin A1C (%) Date Value 12/25/2021 5.6 02/12/2021 6.9 Secondary esophageal varices without bleeding (HCC) Assessment: found in EGD earlier this year, likely related to BANEGAS, pending liver bx Gay Activity Status Index: METS: Climb a flight of stairs or walk up a hill (5.50 METs) DASI Score: 5.5 Patient denies any chest pain or undue shortness of breath with the above physical activity. Clinical Frailty Scale: 4. Apparently vulnerable STOP-Bang Score: Snores loudly Has been observed to stop breathing or choking/gasping during sleep Has or is being treated for high blood pressure Patient over 50 years old Male patient Denies feeling tired, fatigued, or sleepy during the daytime BMI less than or equal to 35 kg/m^2 STOP-Bang Score: 5 [id number] Score: Age: <65 Sex: male CHF history: No Hypertension history: Yes Stroke/TIA/thromboembolism history: Yes Vascular disease history: No Diabetes history: Yes [id number] Score: 4 ARISCAT Score: Age: 51-80 Preoperative SpO2: >=96% Respiratory infection in the last month: No Preoperative anemia: No Surgical incision: peripheral Duration of surgery: <2 hrs Emergency procedure: No ARISCAT Score: 3 ASA Class: 3 ANESTHESIA FINDINGS: Intubation History: No history of difficult intubation Significant Anesthesia Considerations: none Airway History: No history of difficult airway I - PHYSICAL EVALUATION AIRWAYTracheostomy tube not present Mallampati: II. TM distance: >3 FB. Neck ROM: full ROM without neurological symptoms. Mouth opening: adequate. Short neck: no. Thick neck: yes DENTAL Dentures, upper: complete. II - ANESTHESIA PLAN ASA Score: 3 Anesthetic Plan: other Anesthetic plan additional comments: *PACC/TCI - anesthesia choice. Informed Consent Anesthetic risks, benefits, alternatives, personnel and consent discussed: yes. Patient / Responsible Alliance Party agrees to proceed: yes Patient / Surrogate agrees to blood products: Yes Prepared for Surgery: optimally prepared for surgery, pending [see comment]. labs CONSULTS: Patient does not require consults for optimization at this time Planned Anesthetic: other The Following Tests/Procedures Have Been Initiated: Orders Placed This Encounter >CBC + AUTO DIFF Standing Status: Future Number of Occurrences: 1 Standing Expiration Date: 03/03/2022 Type and Screen, 30 day Standing Status: Future Number of Occurrences: 1 Standing Expiration Date: 03/03/2022 Order Specific Question: [facility] or Procedure: Answer: [facility] [place] Instructions Given to Patient: Instructions located in the after visit summary. Patient given verbal and written preop instructions and voices comprehension and compliance. SIGNATURE: Alpa Vergara APRN.CNP PATIENT NAME: Hal Blancas DATE: January 01, 2022 TIME: 1:00 PM PAGER/CONTACT #: [facility] Miscellaneous Notes* Telephone Encounter - Dexter Wong DO - 12/26/2021 2:25 PM EDT Noted. Thank you. Dexter Wong DO * Telephone Encounter - Khloe Carpenter Pss - 12/26/2021 1:42 PM EDT Patient notified. Stated he is having major surgery next month and will get back to us to schedule later. Dr. Ho. * Telephone Encounter - Dexter Wong DO - 12/25/2021 7:07 PM EDT Can let him know blood counts stable. US RUQ then est complex OV with me. Dexter Wong DO documented in [facility] encounterT[facility]10-[facility] History of Past illness Narrative* Problem Noted Date Resolved Date Essential hypertension 12/26/2021 Prediabetes 07/30/2018 12/25/2021 Last Assessment & Plan: Assessment: diet controlled, A1c 6.0 03/2018. Pt denies this dx. 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 Pt denies this dx. 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 Pt denies this dx. 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 Pt denies this dx. 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 Pt denies this dx. 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 Pt denies this dx. 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 Pt denies this dx. 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 Pt denies this dx. 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 Pt denies this dx. 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 Pt denies this dx. 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 Pt denies this dx. 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 Pt denies this dx. 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 Pt denies this dx. Cholecystitis with cholelithiasis 06/08/2014 04/10/2016 Low back pain 05/19/2011 07/15/2021 Cholelithiasis 05/09/2010 04/10/2016 Overview: Incidental CT finding 2009 Muscle weakness (generalized) 01/10/2010 Left hemiparesis 04/26/2009 06/26/2022 Overview: While hospitalized for PE, and then again during filter procedure -- chronic left-sided weakness that is mild/intermittent See neuro exam 11/2009 -- nothing to offer re: work-up, as unable to have MRI (bladder stimulator) Functional Capacity evaluation 01/10/10 -- see report Last Assessment & Plan: Assessment: while hospitalized for PE and then again during filter procedure, chronic left side weakness that is mild and intermittent, pt noted unknown etiology and was worked up by neurology in the past Other specified disorder of male genital organs( 608.89) 10/23/2006 04/26/2009 Hematuria 04/01/2006 04/26/2009 Open wound of foot except toe(s) alone, complica yanna 03/05/2006 02/02/2009 Urinary frequency 09/04/2005 04/26/2009 ASA CLASS III 07/09/2005 04/26/2009 PNEUMATURIA 03/20/2005 02/02/2009 FISTULA ENTEROVESICAL 03/14/2005 02/02/2009 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 Pt denies this dx. Cholecystitis with cholelithiasis 06/08/2014 04/10/2016 Low back pain 05/19/2011 07/15/2021 Cholelithiasis 05/09/2010 04/10/2016 Overview: Incidental CT finding 2009 Muscle weakness (generalized) 01/10/2010 Left hemiparesis 04/26/2009 06/26/2022 Overview: While hospitalized for PE, and then again during filter procedure -- chronic left-sided weakness that is mild/intermittent See neuro exam 11/2009 -- nothing to offer re: work-up, as unable to have MRI (bladder stimulator) Functional Capacity evaluation 01/10/10 -- see report Last Assessment & Plan: Assessment: while hospitalized for PE and then again during filter procedure, chronic left side weakness that is mild and intermittent, pt noted unknown etiology and was worked up by neurology in the past Other specified disorder of male genital organs( 608.89) 10/23/2006 04/26/2009 Hematuria 04/01/2006 04/26/2009 Open wound of foot except toe(s) alone, complica yanna 03/05/2006 02/02/2009 Urinary frequency 09/04/2005 04/26/2009 ASA CLASS III 07/09/2005 04/26/2009 PNEUMATURIA 03/20/2005 02/02/2009 FISTULA ENTEROVESICAL 03/14/2005 02/02/2009 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 Pt denies this dx. Cholecystitis with cholelithiasis 06/08/2014 04/10/2016 Low back pain 05/19/2011 07/15/2021 Cholelithiasis 05/09/2010 04/10/2016 Overview: Incidental CT finding 2009 Muscle weakness (generalized) 01/10/2010 07/15/2021 Left hemiparesis 04/26/2009 06/26/2022 Overview: While hospitalized for PE, and then again during filter procedure -- chronic left-sided weakness that is mild/intermittent See neuro exam 11/2009 -- nothing to offer re: work-up, as unable to have MRI (bladder stimulator) Functional Capacity evaluation 01/10/10 -- see report Last Assessment & Plan: Assessment: while hospitalized for PE and then again during filter procedure, chronic left side weakness that is mild and intermittent, pt noted unknown etiology and was worked up by neurology in the past Other specified disorder of male genital organs(608.89) 10/23/2006 04/26/2009 Hematuria 04/01/2006 04/26/2009 Open wound of foot except to e(s) alone, complicated 03/05/2006 02/02/2009 Urinary frequency 09/04/2005 04/26/2009 ASA CLASS III 07/09/2005 04/26/2009 PNEUMATURIA 03/20/2005 02/02/2009 FISTULA ENTEROVESICAL 03/14/20052008 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 Pt denies this dx. Cholecystitis with cholelithiasis 06/08/2014 04/10/2016 Low back pain 05/19/2011 07/15/2021 Cholelithiasis 05/09/2010 04/10/2016 Overview: Incidental CT finding 2009 Muscle weakness (generalized) 01/10/2010 07/15/2021 Left hemiparesis 04/26/2009 06/26/2022 Overview: While hospitalized for PE, and then again during filter procedure -- chronic left-sided weakness that is mild/intermittent See neuro exam 11/2009 -- nothing to offer re: work-up, as unable to have MRI (bladder stimulator) Functional Capacity evaluation 01/10/10 -- see report Last Assessment & Plan: Assessment: while hospitalized for PE and then again during filter procedure, chronic left side weakness that is mild and intermittent, pt noted unknown etiology and was worked up by neurology in the past Other specified disorder of male genital organs(608.89) 10/23/2006 04/26/2009 Hematuria 04/01/2006 04/26/2009 Open wound of foot except to e(s) alone, complicated 03/05/2006 02/02/2009 Urinary frequency 09/04/2005 04/26/2009 ASA CLASS III 07/09/2005 04/26/2009 PNEUMATURIA 03/20/2005 02/02/2009 FISTULA ENTEROVESICAL 03/14/20052008 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 Pt denies this dx. Cholecystitis with cholelithiasis 06/08/2014 04/10/2016 Low back pain 05/19/2011 07/15/2021 Cholelithiasis 05/09/2010 04/10/2016 Overview: Incidental CT finding 2009 Muscle weakness (generalized) 01/10/2010 07/15/2021 Left hemiparesis 04/26/2009 06/26/2022 Overview: While hospitalized for PE, and then again during filter procedure -- chronic left-sided weakness that is mild/intermittent See neuro exam 11/2009 -- nothing to offer re: work-up, as unable to have MRI (bladder stimulator) Functional Capacity evaluation 01/10/10 -- see report Last Assessment & Plan: Assessment: while hospitalized for PE and then again during filter procedure, chronic left side weakness that is mild and intermittent, pt noted unknown etiology and was worked up by neurology in the past Other specified disorder of male genital organs(608.89) 10/23/2006 04/26/2009 Hematuria 04/01/2006 04/26/2009 Open wound of foot except to e(s) alone, complicated 03/05/2006 02/02/2009 Urinary frequency 09/04/2005 04/26/2009 ASA CLASS III 07/09/2005 04/26/2009 PNEUMATURIA 03/20/2005 02/02/2009 FISTULA ENTEROVESICAL 03/14/20052008 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/2005 04/26/2009 Phlebitis and thrombophlebit is of unspecified site 09/25/2004 04/26/2009 Achilles bursitis or tendinitis 05/07/2004 04/26/2009 Bronchitis, mucopurulent recurrent 07/15/2021 Last Assessment & Plan: Assessment: no recent episodes, rx as needed documented as of this encounter (statuses as of 09/12/2022) [facility] History of Past illness Narrative* Problem Noted Date Diagnosed Date Resolved Date Essential hypertension 12/26/202112/26 Prediabetes 07/30/2018 12/25/2021 Last Assessment & Plan: Assessment: diet controlled, A1c 6.0 03/2018. Pt denies this dx. Cholecystitis with cholelithiasis 06/08/2014 04/10/2016 Low back pain 05/19/2011 07/15/2021 Cholelithiasis 05/09/2010 04/10/2016 Overview: Incidental CT finding 2009 Muscle weakness (generalized) 01/10/2010 07/15/2021 Left hemiparesis 04/26/2009 06/26/2022 Overview: While hospitalized for PE, and then again during filter procedure -- chronic left-sided weakness that is mild/intermittent See neuro exam 11/2009 -- nothing to offer re: work-up, as unable to have MRI (bladder stimulator) Functional Capacity evaluation 01/10/10 -- see report Last Assessment & Plan: Assessment: while hospitalized for PE and then again during filter procedure, chronic left side weakness that is mild and intermittent, pt noted unknown etiology and was worked up by neurology in the past Other specified disorder of male genital organs(608.89) 10/23/2006 04/26/2009 Hematuria 04/01/2006 04/26/2009 Open wound of foot except to e(s) alone, complicated 03/05/2006 02/02/2009 Urinary frequency 09/04/2005 04/26/2009 ASA CLASS III 07/09/2005 04/26/2009 PNEUMATURIA 03/20/2005 02/02/2009 FISTULA ENTEROVESICAL 03/14/20052008 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/2005 04/26/2009 Phlebitis and thrombophlebit is of unspecified site 09/25/2004 04/26/2009 Achilles bursitis or tendinitis 05/07/2004 04/26/2009 Bronchitis, mucopurulent recurrent 07/15/2021 Last Assessment & Plan: Assessment: no recent episodes, rx as needed documented as of this encounter (statuses as of 09/12/2022) [facility] History of Past illness Narrative* Problem Noted Date Diagnosed Date Resolved Date Essential hypertension 12/26/202112/26 Prediabetes 07/30/2018 12/25/2021 Last Assessment & Plan: Assessment: diet controlled, A1c 6.0 03/2018. Pt denies this dx. Cholecystitis with cholelithiasis 06/08/2014 04/10/2016 Low back pain 05/19/2011 07/15/2021 Cholelithiasis 05/09/2010 04/10/2016 Overview: Incidental CT finding 2009 Muscle weakness (generalized) 01/10/2010 07/15/2021 Left hemiparesis 04/26/2009 06/26/2022 Overview: While hospitalized for PE, and then again during filter procedure -- chronic left-sided weakness that is mild/intermittent See neuro exam 11/2009 -- nothing to offer re: work-up, as unable to have MRI (bladder stimulator) Functional Capacity evaluation 01/10/10 -- see report Last Assessment & Plan: Assessment: while hospitalized for PE and then again during filter procedure, chronic left side weakness that is mild and intermittent, pt noted unknown etiology and was worked up by neurology in the past Other specified disorder of male genital organs(608.89) 10/23/2006 04/26/2009 Hematuria 04/01/2006 04/26/2009 Open wound of foot except to e(s) alone, complicated 03/05/2006 02/02/2009 Urinary frequency 09/04/2005 04/26/2009 ASA CLASS III 07/09/2005 04/26/2009 PNEUMATURIA 03/20/2005 02/02/2009 FISTULA ENTEROVESICAL 03/14/20052008 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/2005 04/26/2009 Phlebitis and thrombophlebit is of unspecified site 09/25/2004 04/26/2009 Achilles bursitis or tendinitis 05/07/2004 04/26/2009 Bronchitis, mucopurulent recurrent 07/15/2021 Last Assessment & Plan: Assessment: no recent episodes, rx as needed documented as of this encounter (statuses as of 09/16/2022) [facility] History of Past illness Narrative* Problem Noted Date Diagnosed Date Resolved Date Essential hypertension 12/26/202112/26 Prediabetes 07/30/2018 12/25/2021 Last Assessment & Plan: Assessment: diet controlled, A1c 6.0 03/2018. Pt denies this dx. Cholecystitis with cholelithiasis 06/08/2014 04/10/2016 Low back pain 05/19/2011 07/15/2021 Cholelithiasis 05/09/2010 04/10/2016 Overview: Incidental CT finding 2009 Muscle weakness (generalized) 01/10/2010 07/15/2021 Left hemiparesis 04/26/2009 06/26/2022 Overview: While hospitalized for PE, and then again during filter procedure -- chronic left-sided weakness that is mild/intermittent See neuro exam 11/2009 -- nothing to offer re: work-up, as unable to have MRI (bladder stimulator) Functional Capacity evaluation 01/10/10 -- see report Last Assessment & Plan: Assessment: while hospitalized for PE and then again during filter procedure, chronic left side weakness that is mild and intermittent, pt noted unknown etiology and was worked up by neurology in the past Other specified disorder of male genital organs(608.89) 10/23/2006 04/26/2009 Hematuria 04/01/2006 04/26/2009 Open wound of foot except to e(s) alone, complicated 03/05/2006 02/02/2009 Urinary frequency 09/04/2005 04/26/2009 ASA CLASS III 07/09/2005 04/26/2009 PNEUMATURIA 03/20/2005 02/02/2009 FISTULA ENTEROVESICAL 03/14/20052008 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/2005 04/26/2009 Phlebitis and thrombophlebit is of unspecified site 09/25/2004 04/26/2009 Achilles bursitis or tendinitis 05/07/2004 04/26/2009 Bronchitis, mucopurulent recurrent 07/15/2021 Last Assessment & Plan: Assessment: no recent episodes, rx as needed documented as of this encounter (statuses as of 01/04/2023) [facility] History of Past illness Narrative* Problem Noted Date Diagnosed Date Resolved Date Essential hypertension 12/26/202112/26 Prediabetes 07/30/2018 12/25/2021 Last Assessment & Plan: Assessment: diet controlled, A1c 6.0 03/2018. Pt denies this dx. Cholecystitis with cholelithiasis 06/08/2014 04/10/2016 Low back pain 05/19/2011 07/15/2021 Cholelithiasis 05/09/2010 04/10/2016 Overview: Incidental CT finding 2009 Muscle weakness (generalized) 01/10/2010 07/15/2021 Left hemiparesis 04/26/2009 06/26/2022 Overview: While hospitalized for PE, and then again during filter procedure -- chronic left-sided weakness that is mild/intermittent See neuro exam 11/2009 -- nothing to offer re: work-up, as unable to have MRI (bladder stimulator) Functional Capacity evaluation 01/10/10 -- see report Last Assessment & Plan: Assessment: while hospitalized for PE and then again during filter procedure, chronic left side weakness that is mild and intermittent, pt noted unknown etiology and was worked up by neurology in the past Other specified disorder of male genital organs(608.89) 10/23/2006 04/26/2009 Hematuria 04/01/2006 04/26/2009 Open wound of foot except to e(s) alone, complicated 03/05/2006 02/02/2009 Urinary frequency 09/04/2005 04/26/2009 ASA CLASS III 07/09/2005 04/26/2009 PNEUMATURIA 03/20/2005 02/02/2009 FISTULA ENTEROVESICAL 03/14/20052008 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/2005 04/26/2009 Phlebitis and thrombophlebit is of unspecified site 09/25/2004 04/26/2009 Achilles bursitis or tendinitis 05/07/2004 04/26/2009 Bronchitis, mucopurulent recurrent 07/15/2021 Last Assessment & Plan: Assessment: no recent episodes, rx as needed documented as of this encounter (statuses as of 01/04/2023) [facility] History of Past illness Narrative* Problem Noted Date Diagnosed Date Resolved Date Essential hypertension 12/26/202112/26 Prediabetes 07/30/2018 12/25/2021 Last Assessment & Plan: Assessment: diet controlled, A1c 6.0 03/2018. Pt denies this dx. Cholecystitis with cholelithiasis 06/08/2014 04/10/2016 Low back pain 05/19/2011 07/15/2021 Cholelithiasis 05/09/2010 04/10/2016 Overview: Incidental CT finding 2009 Muscle weakness (generalized) 01/10/2010 07/15/2021 Left hemiparesis 04/26/2009 06/26/2022 Overview: While hospitalized for PE, and then again during filter procedure -- chronic left-sided weakness that is mild/intermittent See neuro exam 11/2009 -- nothing to offer re: work-up, as unable to have MRI (bladder stimulator) Functional Capacity evaluation 01/10/10 -- see report Last Assessment & Plan: Assessment: while hospitalized for PE and then again during filter procedure, chronic left side weakness that is mild and intermittent, pt noted unknown etiology and was worked up by neurology in the past Other specified disorder of male genital organs(608.89) 10/23/2006 04/26/2009 Hematuria 04/01/2006 04/26/2009 Open wound of foot except to e(s) alone, complicated 03/05/2006 02/02/2009 Urinary frequency 09/04/2005 04/26/2009 ASA CLASS III 07/09/2005 04/26/2009 PNEUMATURIA 03/20/2005 02/02/2009 FISTULA ENTEROVESICAL 03/14/20052008 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/2005 04/26/2009 Phlebitis and thrombophlebit is of unspecified site 09/25/2004 04/26/2009 Achilles bursitis or tendinitis 05/07/2004 04/26/2009 Bronchitis, mucopurulent recurrent 07/15/2021 Last Assessment & Plan: Assessment: no recent episodes, rx as needed documented as of this encounter (statuses as of 02/12/2023) [facility] History of Past illness Narrative* Problem Noted Date Diagnosed Date Resolved Date Essential hypertension 12/26/202112/26 Prediabetes 07/30/2018 12/25/2021 Last Assessment & Plan: Assessment: diet controlled, A1c 6.0 03/2018. Pt denies this dx. Cholecystitis with cholelithiasis 06/08/2014 04/10/2016 Low back pain 05/19/2011 07/15/2021 Cholelithiasis 05/09/2010 04/10/2016 Overview: Incidental CT finding 2009 Muscle weakness (generalized) 01/10/2010 07/15/2021 Left hemiparesis 04/26/2009 06/26/2022 Overview: While hospitalized for PE, and then again during filter procedure -- chronic left-sided weakness that is mild/intermittent See neuro exam 11/2009 -- nothing to offer re: work-up, as unable to have MRI (bladder stimulator) Functional Capacity evaluation 01/10/10 -- see report Last Assessment & Plan: Assessment: while hospitalized for PE and then again during filter procedure, chronic left side weakness that is mild and intermittent, pt noted unknown etiology and was worked up by neurology in the past Other specified disorder of male genital organs(608.89) 10/23/2006 04/26/2009 Hematuria 04/01/2006 04/26/2009 Open wound of foot except to e(s) alone, complicated 03/05/2006 02/02/2009 Urinary frequency 09/04/2005 04/26/2009 ASA CLASS III 07/09/2005 04/26/2009 PNEUMATURIA 03/20/2005 02/02/2009 FISTULA ENTEROVESICAL 03/14/20052008 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/2005 04/26/2009 Phlebitis and thrombophlebit is of unspecified site 09/25/2004 04/26/2009 Achilles bursitis or tendinitis 05/07/2004 04/26/2009 Bronchitis, mucopurulent recurrent 07/15/2021 Last Assessment & Plan: Assessment: no recent episodes, rx as needed documented as of this encounter (statuses as of 05/20/2023) [facility] History of Past illness Narrative* Problem Noted Date Diagnosed Date Resolved Date Essential hypertension 12/26/202112/26 Prediabetes 07/30/2018 12/25/2021 Last Assessment & Plan: Assessment: diet controlled, A1c 6.0 03/2018. Pt denies this dx. Cholecystitis with cholelithiasis 06/08/2014 04/10/2016 Low back pain 05/19/2011 07/15/2021 Cholelithiasis 05/09/2010 04/10/2016 Overview: Incidental CT finding 2009 Muscle weakness (generalized) 01/10/2010 07/15/2021 Left hemiparesis 04/26/2009 06/26/2022 Overview: While hospitalized for PE, and then again during filter procedure -- chronic left-sided weakness that is mild/intermittent See neuro exam 11/2009 -- nothing to offer re: work-up, as unable to have MRI (bladder stimulator) Functional Capacity evaluation 01/10/10 -- see report Last Assessment & Plan: Assessment: while hospitalized for PE and then again during filter procedure, chronic left side weakness that is mild and intermittent, pt noted unknown etiology and was worked up by neurology in the past Other specified disorder of male genital organs(608.89) 10/23/2006 04/26/2009 Hematuria 04/01/2006 04/26/2009 Open wound of foot except to e(s) alone, complicated 03/05/2006 02/02/2009 Urinary frequency 09/04/2005 04/26/2009 ASA CLASS III 07/09/2005 04/26/2009 PNEUMATURIA 03/20/2005 02/02/2009 FISTULA ENTEROVESICAL 03/14/20052008 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/2005 04/26/2009 Phlebitis and thrombophlebit is of unspecified site 09/25/2004 04/26/2009 Achilles bursitis or tendinitis 05/07/2004 04/26/2009 Bronchitis, mucopurulent recurrent 07/15/2021 Last Assessment & Plan: Assessment: no recent episodes, rx as needed documented as of this encounter (statuses as of 05/20/2023) [facility] History of Present illness Narrative* Julián Urias MD - 12/25/2021 9:40 AM EDT Chief Complaint Patient presents with: F/U 3 Month HPI Hal Blancas is a 51 year old male who presents here today for 3 month follow up. Denies any bowel, gi, or urinary issues. Follows with Urologist Dr. Solares. Pt self caths 1-2 x per day. Pt believes he gets his supplies from [place]. HTN: Taking Lisinopril 5 mg daily. No chest pains, dizziness, or SOB. Denies checking BP at home. Lipid: Tries to watch diet, eating more of a Diabetes diet. Reducing sugar intake. Does some walking for exercise. Taking Lipitor 10 mg daily, tolerating well, no myalgia or gi upset. Thyroid: Is on Synthroid 100 mcg daily, no missed dosages. No change in symptoms. DM: Checking sugars once daily with FBS ranging from 90's - 150's. Denies any hypoglycemic episodes. No neuropathy sx. Denies seeing Podiatry. Taking Metformin 1,000 mg 1 pill BID. Insomnia: Taking Doxepin 10 mg daily at bedtime. Following with Sleep Medicine Dr. Yin. MARC: Using CPAP machine as ordered by Dr. Yin's office. Reports he's using this nightly. Sleep ishit and miss. No loud snoring or daytime somnolence. Shingles rash has resolved. Denies post herpetic neuralgia or scarring. Cirrhosis: Refused liver biopsy through GI. Has not been vaccinated for hepatitis A or B that he can recall. Discussed titers. Due for repeat vitamin D level. Finished taking 50,000 units weekly. Now taking OTC vitamin D weekly, but is not sure on dosage. HM - Agrees to flu shot and Covid booster today. Past medical history, appointments, medications, allergies reviewed. 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 Wong Hematuria work up in progress as of 09/24/04 Hepatomegaly Hypogonadism in male 2/2 orchiectomy for testicular pain Hypothyroidism Left-sided muscle weakness intermittent, has had extensive work up Obesity MARC (obstructive sleep apnea) Seeing Dr. Yin, using CPAP Osteopenia of neck of left femur 06/18/2020 Other cirrhosis of liver (HCC) /2 [facility] - PAST MEDICAL HISTORY OF scrotal swelling Pulmonary embolism (HCC) Retention of urine, unspecified Snoring Splenomegaly Thrombocytopenia (HCC) Urethral stricture 2020 Urethral stricture s/p urethroplasty 06/2021. Vitamin D deficiency Previous Surgical History PAST SURGICAL HISTORY Procedure Laterality Date COLONOSCOPY 2009 COLONOSCOPY FLX DX W/COLLJ SPEC WHEN PFRMD 03/13/2021 1 small polyp-repeat in 5 years ESOPHAGOGASTRODUODENOSCOPY TRANSORAL DIAGNOSTIC 03/13/2021 grade II esophageal varices EXPLORATORY LAPAROTOMY CELIOTOMY W/WO BIOPSY SPX 03/2005 Laparotomy, exp; incidental appendectomy IVC FILTER PERCUTANEOUS 06/2004 IVC FILTER SURGICAL LAPAROSCOPY SURG CHOLECYSTECTOMY 06/08/2014 PAST SURGICAL HISTORY OF 1975 finger rt hand table saw dipj PAST SURGICAL HISTORY OF 11/2005 Bladder pacemaker PAST SURGICAL HISTORY OF Bilateral bilateral achilles repair PAST SURGICAL HISTORY OF 2006, 2007 bilateral orchiectomy, secondary to pain PAST SURGICAL HISTORY OF 2020 placement of suprapubic catheter PAST SURGICAL HISTORY OF N/A 07/16/2021 urethroplasty with BMG Family History FAMILY HISTORY Problem Relation Age of Onset Colon Cancer Mother Diabetes Father unsure of how old Coronary Artery Disease Father Hypertension Father Diabetes Sister other (sleep apnea) Sister Diabetes Sister other (sleep apnea) Sister other (Trisomy 22) Daughter other (Trisomy 22) Son Patient Allergies ALLERGIES Allergen Reactions Piperacillin Rash Vancocin [Vancomyci* Rash Latex Rash Sodium Hypochlorite* Rash Current Medications Current Outpatient Medications on File Prior to Visit Medication Sig doxepin capsule 10 mg Take 1 capsule by mouth daily at bedtime. enoxaparin (LOVENOX) 120 mg/0.8 mL injection Inject 0.7 mL subcutaneously every 12 hours. metFORMIN (GLUCOPHAGE) 1,000 mg tablet Take 1 tablet by mouth twice daily with meals. . lisinopril (ZESTRIL, PRINIVIL) 5 mg tablet Take 1 tablet by mouth once daily. atorvastatin (LIPITOR) 10 mg tablet Take 1 tablet by mouth daily at bedtime. For cholesterol. levothyroxine (SYNTHROID) 100 mcg tablet Take 1 tablet by mouth once daily. acetaminophen (TYLENOL) 325 mg tablet Take 2 tablets by mouth every 6 hours as needed for pain. ACCU-CHEK GUIDE ME GLUCOSE MTR USE TO TEST BLOOD SUGAR testosterone enanthate (DELATESTRYL) 200 mg/mL injection blood sugar diagnostic (BLOOD GLUCOSE TEST) test strip Test blood sugar(s) 1 times daily. Dx: Type 2 DM - Controlled E11.9 Insulin: No Lancets lancets Test blood sugar(s) 1 times daily. Dx: Type 2 DM - Controlled E11.9 Insulin: No CPAP Patient would like to change DME closer to home. Needs mask and supplies. Current PAP device only 3 months old. Need download from device. Lifetime supplies. Irrigation Set irst 1 kit to flush SPT as needed Syringe Disposable, Irrigation (IRRIGATION SYRINGE) syrg Use to flush SPT with Irrigation fluid sodium chloride 0.9 % IRRIGATION Use irrigation solution to flush SPT ipratropium-albuterol (DUONEB) 0.5 mg-3 mg(2.5 mg base)/3 mL nebu Inhale 3 mL as instructed every 4hours as needed (wheezing). Use over 5-15minutes per nebulizer. cholecalciferol, Vitamin D3, (VITAMIN D3) 1,250 mcg (50,000 unit) cap capsule Take 1 capsule by mouth one time a week. Syringe with Needle, Disp, 3 mL 22 gauge x 1 syrg Use as directed to inject testosterone once a month COMPOUNDED PRESCRIPTION Night bag for Baum catheter Urinary Bag (URINARY LEG BAG) [facility] Catheter (BARD COUDE TIP CATHETER) 16 Fr Misc Misc to be used as needed ALBUTEROL 90 MCG/ACTUATION AEROSOL INHALER Inhale two(2) puffs four(4) times a day for wheezing andshortness of breath. No current facility-administered medications on file prior to visit. Social History Social History Tobacco Use Smoking status: Former Packs/day: 2.00 Years: 2.00 Pack years: 4.00 Types: Cigarettes Quit date: 07/04/1987 Years since quittin.5 Smokeless tobacco: Never Vaping Use Vaping Use: Never used Substance Use Topics Alcohol use: Yes Comment: occasional- less than 1 drink per week Drug use: No Review of Symptoms REVIEW OF SYSTEMS GENERAL: No weight loss, malaise or fevers RESPIRATORY: Negative for cough, hemoptysis, wheezing, COPD, dyspnea or shortness of breath CARDIOVASCULAR: Negative for chest pain, leg swelling, hypertension, CHF or palpitations GI: No nausea, vomiting, or diarrhea SKIN: Negative for lesions, rash, and itching EXAM: BP 106/70 (BP Site: Right Arm, BP Position: Sitting, BP Cuff Size: Regular Adult) Pulse 80 Resp16 Wt 112.6 kg (248 lb 3.2 oz) BMI 31.87 kg/m General Appearance: Well appearing, alert, in no acute distress, well-hydrated, well nourished.. Skin: Skin color, texture, turgor normal, no suspicious rashes or lesions. Lungs: Lungs clear to auscultation. No wheezing, rhonchi, rales.. Heart: RRR without murmur, gallop, or rubs. No ectopy. Abdomen: Normal abdominal exam, Abdomen soft, non-tender. Bowel sounds normal. No masses, organomegaly. Extremities: No deformities, edema, skin discoloration, clubbing or cyanosis. Good capillary refill. . Health Maintenance List HEPATITIS B(1 of 3 - 3-dose series) Never done HEPATITIS A(1 of 2 - Risk 2-dose series) Never done PNEUMOCOCCAL(2 - PCV) due on 03/02/2008 SHINGRIX VACCINE(1 of 2) Never done COVID-19 VACCINE(3 - Booster for Pfizer series) due on 02/13/2021 INFLUENZA(1) due on 10/31/2021 HBA1C due on 01/02/2022 URINE ALBUMIN:CREATININE RATIO due on 03/05/2022 DIABETIC FOOT EXAM due on 03/06/2022 DILATED RETINAL EXAM due on 04/03/2022 LDL CHOLESTEROL due on 09/06/2022 ANNUAL PCP TEAM CHRONIC DISEASE VISIT due on 10/23/2022 COLORECTAL CANCER SCREENING due on 03/13/2026 DTAP,TDAP,TD(3 - Td or Tdap) due on 02/18/2028 HEPATITIS C SCREENING Completed HIV SCREENING Completed Data reviewed Patient Outreach on 11/27/2021 Component Date Value Color 11/27/2021 Yellow Clarity 11/27/2021 Clear Glucose, Urine 11/27/2021 2+ (A) Bilirubin, Urine 11/27/2021 Negative Ketones, Urine 11/27/2021 Negative Specific [place], Ur 11/27/2021 1.027 Hemoglobin/Blood,Ur 11/27/2021 1+ (A) pH, Urine 11/27/2021 5.5 Protein, Urine 11/27/2021 Negative Urobilinogen 11/27/2021 Negative Nitrites 11/27/2021 Negative Leuk Esterase 11/27/2021 25 Yue/mL (A) WBC, Urine 11/27/2021 11-25 /HPF (A) RBC, Urine 11/27/2021 3-5 /HPF (A) Squamous Epithelial Cells 11/27/2021 Few Appointment on 11/13/2021 Component Date Value WBC 11/13/2021 2.41 (A) RBC 11/13/2021 4.44 Hemoglobin 11/13/2021 12.6 (A) Hematocrit 11/13/2021 36.1 (A) MCV 11/13/2021 81.3 MCH 11/13/2021 28.4 MCHC 11/13/2021 34.9 RDW-CV 11/13/2021 16.9 (A) Platelet Count 11/13/2021 51 (A) MPV 11/13/2021 8.5 (A) Neut% 11/13/2021 49.4 Abs Neut 11/13/2021 1.19 (A) Lymph% 11/13/2021 36.5 Abs Lymph 11/13/2021 0.88 (A) [place]% 11/13/2021 7.9 Abs [place] 11/13/2021 0.19 Eosin% 11/13/2021 5.8 Abs Eosin 11/13/2021 0.14 Baso% 11/13/2021 0.4 Abs Baso 11/13/2021 <0.03 Immature Gran % 11/13/2021 0.0 Abs Immature Gran 11/13/2021 <0.03 NRBC 11/13/2021 0.0 Absolute nRBC 11/13/2021 <0.01 Diff Type 11/13/2021 Auto ASSESSMENT/PLAN: 1. Diabetes mellitus type II (HCC) - ICD9: 250.00, ICD10: E11.9 (primary diagnosis) Controlled. - Continue current medications - Blood glucose monitoring on a once a day schedule - Encouraged regular aerobic exercise and weight loss - Daily Asprin therapy recommended - Follow up in 6 months, sooner should any other issues arise. - Discussed diabetic education issues of usp diabetic complications, hypoglycemic symptoms, hyperglycemic symptoms, diet, medications- side effects and need for compliance, importance of exercise, and importance of annual examinations with Opthalmology with patient. - HGB A1C - COMP METABOLIC PANEL 2. MARC (obstructive sleep apnea) - ICD9: 327.23, ICD10: G47.33 Symptoms improved with nightly CPAP use. 3. Hypothyroidism, unspecified type - ICD9: 244.9, ICD10: E03.9 - Instructed patient on importance of taking on an empty stomach either first thing in the morning or at bedtime. - continue current dose of Synthroid 0.100 mg\ 4. Cirrhosis, nonalcoholic (HCC) - ICD9: 571.5, ICD10: K74.60 Refusing liver biopsy. Will test for immunity to hepatitis A and B and update vaccinations as needed. - HEP REMOTE PANEL BL - HEPATITIS A ANTIBODY, IGG 5. Vitamin D deficiency - ICD9: 268.9, ICD10: E55.9 Recheck. - VITAMIN D 25 HYDROXY 6. Obesity (BMI 30-39.9) - ICD9: 278.00, ICD10: E66.9 Stable - Behavioral intervention 7. Need for influenza vaccination - ICD9: V04.81, ICD10: Z23 - INFLUENZA VACCINE QUADRIVALENT 6 MO - 64 YRS IM 8. Need for COVID-19 vaccine - ICD9: V04.89, ICD10: Z23 - Return [employer] COVID-19 BIVALENT BOOSTER VACCINE, AGE 12+ YR 9. Need for vaccination - ICD9: V05.9, ICD10: Z23 - PNEUMOCOCCAL VACCINE (PREVNAR 20) 10. Herpes zoster without complication - ICD9: 053.9, ICD10: B02.9 Resolved. 11. Primary insomnia - ICD9: 307.42, ICD10: F51.01 Controlled on Doxepin. Julián Urias MD documented [facility]10-[facility]22 Miscellaneous Notes* Telephone Encounter - Lindy Wong MA - 12/11/2021 10:27 AM EDT Contacted patient via TC. R/S OV for 12/25 @ 940 AM. Lindy Wong MA documented in this encounterToledo [facility]09-28-2022 Miscellaneous Notes* Addendum Note - Rainer Solares MD - 11/27/2021 3:15 PM EDTAddended by: RAINER SOLARES on: 11/27/2021 03:15 PM Modules accepted: Orders documented in this encounterToledo Hospital09-28-2022 History of Present illness Narrative* Rainer Solares MD - 11/27/2021 1:12 PM EDT HPI: Hal Blancas is a 51yo male with PMH of penile urethral stricture managed with SPT. Had tubeplaced nearly 2 years ago and lost to follow up. Medical risks include splenomegaly, lupus anticoagulant, esoph varices, diabetes, thrombocytopenia. Hal Blancas had the following procedure with Dr. Solares on 07/16/2021: Anterior urethroplasty of bulbous and membranous urethra with ventral onlay of buccal mucosal graft [place] of bilateral buccal mucosa graft size 5.5 cm by 1.5 cm Reconfiguration of both grafts to make a 5.5 cm x 2.5 cm graft Dorsal partial thickness augmented anastomotic repair of bulbar urethra Cystoscopy Suprapubic catheter tube exchange Hal Blancas had VCUG on 08/06/21 and SPT removed on 08/09/21. Patient was last seen by Dr. Amador on 08/23/2021 for continued drainage from old SPT site. Planned for surgical closure in August; however, site spontaneously closed and patient states there is no further drainage. Hal Blancas states today he is feeling well. Endorses scant leakage during the day from the SPT site when his bladder is overfull. Daytime void 3-4 times per day. Does not wear a pad over the site, just changes his clothes. Has not tried to void more frequently because he is typically engaged in an activity and doesn't want to stop to void. Nocturia x1-2 without taking pain meds or medication to helpwith sleep. Area the size of an orange. When he does take pain meds or sleeping medication, he putsa towel over the old SPT site he will not get up to void at all. On those days the towel is saturated with urine in the morning. Hal Blancas states that his urine stream is strong, empties his bladder quickly. Denies s/s UTI since surgery. Initially had issues with slow healing of mouth graft sites. States today they are completely healed. Able to wear his dentures now. Sometimes food gets stuck in the scar tissues. Back to performing activities of daily living without restriction. 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 Wong Hematuria work up in progress as of 09/24/04 Hepatomegaly Hypogonadism in male 2/2 orchiectomy for testicular pain Hypothyroidism Left-sided muscle weakness intermittent, has had extensive work up Obesity MARC (obstructive sleep apnea) Seeing Dr. Yin, using CPAP Osteopenia of neck of left femur 06/18/2020 Other cirrhosis of liver (HCC) 2/2 [facility] - PAST MEDICAL HISTORY OF scrotal swelling Pulmonary embolism (HCC) 1999' Retention of urine, unspecified Snoring Splenomegaly Thrombocytopenia (HCC) Urethral stricture 2020 Urethral stricture s/p urethroplasty 06/2021. Vitamin D deficiency PAST SURGICAL HISTORY Procedure Laterality Date COLONOSCOPY 2009 COLONOSCOPY FLX DX W/COLLJ SPEC WHEN PFRMD 03/13/2021 1 small polyp-repeat in 5 years ESOPHAGOGASTRODUODENOSCOPY TRANSORAL DIAGNOSTIC 03/13/2021 grade II esophageal varices EXPLORATORY LAPAROTOMY CELIOTOMY W/WO BIOPSY SPX 03/2005 Laparotomy, exp; incidental appendectomy IVC FILTER PERCUTANEOUS 06/2004 IVC FILTER SURGICAL LAPAROSCOPY SURG CHOLECYSTECTOMY 06/08/2014 PAST SURGICAL HISTORY OF 1975 finger rt hand table saw dipj PAST SURGICAL HISTORY OF 11/2005 Bladder pacemaker PAST SURGICAL HISTORY OF Bilateral bilateral achilles repair PAST SURGICAL HISTORY OF 2006, 2007 bilateral orchiectomy, secondary to pain PAST SURGICAL HISTORY OF 2020 placement of suprapubic catheter PAST SURGICAL HISTORY OF N/A 07/16/2021 urethroplasty with BMG Social History Tobacco Use Smoking status: Former Packs/day: 2.00 Years: 2.00 Pack years: 4.00 Types: Cigarettes Quit date: 07/04/1987 Years since quittin.4 Smokeless tobacco: Never Vaping Use Vaping Use: Never used Substance Use Topics Alcohol use: Yes Comment: occasional- less than 1 drink per week Drug use: No Current Outpatient Medications on File Prior to Visit Medication Sig doxepin capsule 10 mg Take 1 capsule by mouth daily at bedtime. enoxaparin (LOVENOX) 120 mg/0.8 mL injection Inject 0.7 mL subcutaneously every 12 hours. metFORMIN (GLUCOPHAGE) 1,000 mg tablet Take 1 tablet by mouth twice daily with meals. . lisinopril (ZESTRIL, PRINIVIL) 5 mg tablet Take 1 tablet by mouth once daily. atorvastatin (LIPITOR) 10 mg tablet Take 1 tablet by mouth daily at bedtime. For cholesterol. levothyroxine (SYNTHROID) 100 mcg tablet Take 1 tablet by mouth once daily. acetaminophen (TYLENOL) 325 mg tablet Take 2 tablets by mouth every 6 hours as needed for pain. ACCU-CHEK GUIDE ME GLUCOSE MTR USE TO TEST BLOOD SUGAR testosterone enanthate (DELATESTRYL) 200 mg/mL injection blood sugar diagnostic (BLOOD GLUCOSE TEST) test strip Test blood sugar(s) 1 times daily. Dx: Type 2 DM - Controlled E11.9 Insulin: No Lancets lancets Test blood sugar(s) 1 times daily. Dx: Type 2 DM - Controlled E11.9 Insulin: No CPAP Patient would like to change DME closer to home. Needs mask and supplies. Current PAP device only 3 months old. Need download from device. Lifetime supplies. Irrigation Set irst 1 kit to flush SPT as needed Syringe Disposable, Irrigation (IRRIGATION SYRINGE) syrg Use to flush SPT with Irrigation fluid sodium chloride 0.9 % IRRIGATION Use irrigation solution to flush SPT ipratropium-albuterol (DUONEB) 0.5 mg-3 mg(2.5 mg base)/3 mL nebu Inhale 3 mL as instructed every 4hours as needed (wheezing). Use over 5-15minutes per nebulizer. cholecalciferol, Vitamin D3, (VITAMIN D3) 1,250 mcg (50,000 unit) cap capsule Take 1 capsule by mouth one time a week. Syringe with Needle, Disp, 3 mL 22 gauge x 1 syrg Use as directed to inject testosterone once a month COMPOUNDED PRESCRIPTION Night bag for Baum catheter Urinary Bag (URINARY LEG BAG) Misc Misc Use as needed Catheter (BARD COUDE TIP CATHETER) 16 Fr Misc Misc to be used as needed ALBUTEROL 90 MCG/ACTUATION AEROSOL INHALER Inhale two(2) puffs four(4) times a day for wheezing andshortness of breath. No current facility-administered medications on file prior to visit. ROS: Constitutional: negative Gastrointestinal: negative PHYSICAL EXAM: There were no vitals taken for this visit. GENERAL: Wnl nutrition, no deformities, healthy appearing ABDOMEN: Soft, nontender, nondistended, no masses. there is an 8F hole that is wet that correspondsto SPT site GENITOURINARY: MALE EXAM: normal DATA/OR LABS TO BE REVIEWED: (Simple=1 data point; Complex= 2 or more) PSA (ng/mL) Date Value 01/31/2020 <0.03 02/20/2017 0.06 PSA Screening (ng/mL) Date Value 05/09/2010 0.66 01/21/2010 0.16 Creatinine (mg/dL) Date Value 07/17/2021 0.92 07/02/2021 0.72 05/17/2021 0.70 02/12/2021 0.74 01/11/2021 0.66 07/31/2020 0.62 02/13/2020 0.74 11/16/2019 0.78 Testosterone (ng/dL) Date Value 07/31/2020 302 01/31/2020 12 A/P: persistent SPT drainage. We had planned to excise repair in the summer, but it seemed to close off.Now leaking nightly. Disc operative closure and he is agreeable. Gave some dates in Nov- he will sort out with and LMK. There is a consent from prior planned OR earlier this summer. All Q answered. Emptying well from bladder with PVR0 s/p uplasty Rainer Solares MD documented in this encounterToledo Hospital08-24-2022 History of Present illness Narrative* Julián Urias MD - 10/23/2021 1:33 PM EDT Chief Complaint Patient presents with: Rash HPI Hal Blancas is a 51 year old male who presents here today for Above Complaints. Patient complaining of painful rash on right mid abdomen since 10/19. Not treating with anything OTCfor pain. Currently 04/11. Does have blisters over rash which he has been treating with neosporin. Still getting new rash today. Denies fever, chills, warmth to touch, itching, drainage. Past medical history, appointments, medications, allergies reviewed. 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 Wong Hematuria work up in progress as of 09/24/04 Hepatomegaly Hypogonadism in male 2/2 orchiectomy for testicular pain Hypothyroidism Left-sided muscle weakness intermittent, has had extensive work up Obesity MARC (obstructive sleep apnea) Seeing Dr. Yin, using CPAP Osteopenia of neck of left femur 06/18/2020 Other cirrhosis of liver (HCC) 2/2 [facility] - PAST MEDICAL HISTORY OF scrotal swelling Pulmonary embolism (HCC) Retention of urine, unspecified Snoring Splenomegaly Thrombocytopenia (HCC) Urethral stricture 2020 Urethral stricture s/p urethroplasty 06/2021. Vitamin D deficiency Previous Surgical History PAST SURGICAL HISTORY Procedure Laterality Date COLONOSCOPY 2009 COLONOSCOPY FLX DX W/COLLJ SPEC WHEN PFRMD 03/13/2021 1 small polyp-repeat in 5 years ESOPHAGOGASTRODUODENOSCOPY TRANSORAL DIAGNOSTIC 03/13/2021 grade II esophageal varices EXPLORATORY LAPAROTOMY CELIOTOMY W/WO BIOPSY SPX 03/2005 Laparotomy, exp; incidental appendectomy IVC FILTER PERCUTANEOUS 06/2004 IVC FILTER SURGICAL LAPAROSCOPY SURG CHOLECYSTECTOMY 06/08/2014 PAST SURGICAL HISTORY OF 1975 finger rt hand table saw dipj PAST SURGICAL HISTORY OF 11/2005 Bladder pacemaker PAST SURGICAL HISTORY OF Bilateral bilateral achilles repair PAST SURGICAL HISTORY OF 2006, 2007 bilateral orchiectomy, secondary to pain PAST SURGICAL HISTORY OF 2020 placement of suprapubic catheter PAST SURGICAL HISTORY OF N/A 07/16/2021 urethroplasty with BMG Family History FAMILY HISTORY Problem Relation Age of Onset Colon Cancer Mother Diabetes Father unsure of how old Coronary Artery Disease Father Hypertension Father Diabetes Sister other (sleep apnea) Sister Diabetes Sister other (sleep apnea) Sister other (Trisomy 22) Daughter other (Trisomy 22) Son Patient Allergies ALLERGIES Allergen Reactions Piperacillin Rash Vancocin [Vancomyci* Rash Latex Rash Sodium Hypochlorite* Rash Current Medications Current Outpatient Medications on File Prior to Visit Medication Sig enoxaparin (LOVENOX) 120 mg/0.8 mL injection Inject 0.7 mL subcutaneously every 12 hours. metFORMIN (GLUCOPHAGE) 1,000 mg tablet Take 1 tablet by mouth twice daily with meals. . lisinopril (ZESTRIL, PRINIVIL) 5 mg tablet Take 1 tablet by mouth once daily. atorvastatin (LIPITOR) 10 mg tablet Take 1 tablet by mouth daily at bedtime. For cholesterol. levothyroxine (SYNTHROID) 100 mcg tablet Take 1 tablet by mouth once daily. acetaminophen (TYLENOL) 325 mg tablet Take 2 tablets by mouth every 6 hours as needed for pain. ACCU-CHEK GUIDE ME GLUCOSE MTR USE TO TEST BLOOD SUGAR testosterone enanthate (DELATESTRYL) 200 mg/mL injection blood sugar diagnostic (BLOOD GLUCOSE TEST) test strip Test blood sugar(s) 1 times daily. Dx: Type 2 DM - Controlled E11.9 Insulin: No Lancets lancets Test blood sugar(s) 1 times daily. Dx: Type 2 DM - Controlled E11.9 Insulin: No CPAP Patient would like to change DME closer to home. Needs mask and supplies. Current PAP device only 3 months old. Need download from device. Lifetime supplies. Irrigation Set irst 1 kit to flush SPT as needed Syringe Disposable, Irrigation (IRRIGATION SYRINGE) syrg Use to flush SPT with Irrigation fluid sodium chloride 0.9 % IRRIGATION Use irrigation solution to flush SPT ipratropium-albuterol (DUONEB) 0.5 mg-3 mg(2.5 mg base)/3 mL nebu Inhale 3 mL as instructed every 4hours as needed (wheezing). Use over 5-15minutes per nebulizer. cholecalciferol, Vitamin D3, (VITAMIN D3) 1,250 mcg (50,000 unit) cap capsule Take 1 capsule by mouth one time a week. Syringe with Needle, Disp, 3 mL 22 gauge x 1 syrg Use as directed to inject testosterone once a month COMPOUNDED PRESCRIPTION Night bag for Baum catheter Urinary Bag (URINARY LEG BAG) Misc Misc Use as needed Catheter (BARD COUDE TIP CATHETER) 16 Fr Misc Misc to be used as needed ALBUTEROL 90 MCG/ACTUATION AEROSOL INHALER Inhale two(2) puffs four(4) times a day for wheezing andshortness of breath. No current facility-administered medications on file prior to visit. Social History Social History Tobacco Use Smoking status: Former Packs/day: 2.00 Years: 2.00 Pack years: 4.00 Types: Cigarettes Quit date: 07/04/1987 Years since quittin.3 Smokeless tobacco: Never Vaping Use Vaping Use: Never used Substance Use Topics Alcohol use: Yes Comment: occasional- less than 1 drink per week Drug use: No Review of Symptoms REVIEW OF SYSTEMS See HPI EXAM: BP 110/70 Pulse 74 Temp 36.7 C (98 F) Resp 16 Wt 111.1 kg (245 lb) SpO2 98% BMI 31.46 kg/m General Appearance: Well appearing, alert, in no acute distress, well-hydrated, well nourished.. Skin: Mild shingles rash over right abdomen along T9 dermatome with vesicles without pustules or cellulitis . Health Maintenance List HEPATITIS B(1 of 3 - 3-dose series) Never done HEPATITIS A(1 of 2 - Risk 2-dose series) Never done PNEUMOCOCCAL(2 - PCV) due on 03/02/2008 SHINGRIX VACCINE(1 of 2) Never done COVID-19 VACCINE(3 - Booster for Pfizer series) due on 05/19/2021 INFLUENZA(1) due on 10/31/2021 HBA1C due on 01/02/2022 URINE ALBUMIN:CREATININE RATIO due on 03/05/2022 DIABETIC FOOT EXAM due on 03/06/2022 DILATED RETINAL EXAM due on 04/03/2022 LDL CHOLESTEROL due on 09/06/2022 ANNUAL PCP TEAM CHRONIC DISEASE VISIT due on 09/06/2022 COLORECTAL CANCER SCREENING due on 03/13/2026 DTAP,TDAP,TD(3 - Td or Tdap) due on 02/18/2028 HEPATITIS C SCREENING Completed HIV SCREENING Completed ASSESSMENT/PLAN: 1. Herpes zoster without complication - ICD9: 053.9, ICD10: B02.9 Start valtrex x 7 days and treat pain with OTC analgesics PRN. Red flags for re- assessment reviewedwith patient in detail. Give information for home. Discussed risk of spread of chickenpox to othersif they have not had chickenpox. - VALACYCLOVIR 1 GRAM TABLET Julián Urias MD documented [facility]22 Miscellaneous Notes* Telephone Encounter - Becca Minor RN - 09/25/2021 2:56 PM EDT Sulema with [facility] calls to request recent labs be faxed to office especially looking for latest CBC and HGBA1C. Faxed to [phone] per request. Becca Minor RN documented in this encounterT[facility]07-25-2022 Miscellaneous Notes* Telephone Encounter - Ximena Garcia - 09/23/2021 11:58 AM EDT Received pap therapy prescription form. Form signed and faxed. documented in this encounterT[facility]07-18-2022 Miscellaneous Notes* Telephone Encounter - Julián Urias MD - 09/16/2021 2:13 PM EDT Reviewed. * Telephone Encounter - Ngoc Gonzalez LPN - 09/16/2021 2:01 PM EDT Patient telephoned and notified of results. Voices understanding. States he will reach out to Dr. Malik office. Lab services called, unable to add on CMP. Patient made aware and states he will have it drawn whenhe comes in here at the beginning of september. Ngoc Gonzalez LPN * Telephone Encounter - Nori Corbin RN - 09/13/2021 4:12 PM EDT Left vm for patient to return call to nurse for provider message. * Telephone Encounter - Julián Urias MD - 09/13/2021 8:22 AM EDT Cholesterol looks good. Blood counts show gradually worsening anemia and chronically low platelets and WBC. Looks like thiswas ordered by Dr. Wong and they should be contacting him with further recommendations soon. I would have him contact their office if he has not heard back by early next week. CMP was ordered, but was not completed. Please call lab to add this on to drawn blood work. documented in this encounterT[facility]07-12-2022 Miscellaneous Notes* Telephone Encounter - Jessika Barnett - 09/10/2021 2:01 PM EDT Received PSG with PAP Titration test results by fax from [facility]. Report sent to scanning to add to the patient's chart. Received PAP Therapy Prescription form from [employer]. Placed in the provider's in-box for signature. Called the patient to schedule a follow-up appointment. The patient declined in-person or vitual appointment and requested the provider to give the resultsand new settings by [employer] message. * Telephone Encounter - Bruna Mercado RN - 09/06/2021 11:00 AM EDT Patient calling to inform Dr. Yin that he had his sleep study completed this week and results should have been sent to office for review. Thank you. documented in this encounterT[facility]07-08-2022 History of Present illness Narrative* Julián Urias MD - 09/06/2021 9:22 AM EDT Chief Complaint Patient presents with: Follow Up: 6 month HPI Hal Blancas is a 51 year old male who presents here today for Above Complaints. Since last OV, patient was found to have esophageal varices on EGD by Dr. Riggs which lead to likely diagnosis of cirrhosis 2/2 BANEGAS. Noted one 5 mm polyps on colonoscopy with recommendation to repeat in 5 years. EGD to be repeated in 1 year. Ordered liver biopsy which patient has not completed yet. Will contact GI to schedule. Underwent urethroplasty in June for history of ureteral stricture, chronic SPT. At OV with urology in July, was noted to be emptying his bladder well, but had persistent drainage from SPT tract site. Recommended silver nitrate to tract which has resolved his drainage. Admits to some urinary incontinence on the way to the restroom. Denies weak stream, straining to urinate, hematuria, dysuria. Has follow up appointment with urology in October. DIABETES MELLITUS: Mr. Blancas was last seen 6 months ago. Since our last visit he denies excessive thirst or increased frequency of urination, numbness, tingling or pain in extremities, new or unusual visual symptoms and low sugar/hypoglycemic reactions. Follows a diabetic diet most of the time. Weight down 20 lbs since his last OV. He is compliant with medication(s) and is tolerating med(s) without any side effects. He reports checking his glucose on a once a day schedule with sugars in the fasting 125-160 range. Patient's last HgA1C was Hemoglobin A1C (%) Date Value 07/02/2021 5.2 02/12/2021 6.9 07/31/2020 7.3 ) Last Ophthalmology exam was within the past 12 months Last Podiatry exam was within the past 12 months MARC: patient following up with Dr. Yin. Had PSG on Thursday which showed MARC with recommendationfor Auto PAP 5-12 cm H2O. Has not heard back from Dr. Yin about settings. Still using CPAP on a nightly basis, but feels like the pressure has been too high for him on his current settings. Past medical history, appointments, medications, allergies reviewed. 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 Wong Hematuria work up in progress as of 09/24/04 Hepatomegaly Hypogonadism in male 2/2 orchiectomy for testicular pain Hypothyroidism Left-sided muscle weakness intermittent, has had extensive work up Obesity MARC (obstructive sleep apnea) Seeing Dr. Yin, using CPAP Osteopenia of neck of left femur 06/18/2020 PMH - PAST MEDICAL HISTORY OF scrotal swelling Pulmonary embolism (HCC) Retention of urine, unspecified Snoring Splenomegaly Thrombocytopenia (HCC) Urethral stricture 2020 Vitamin D deficiency Previous Surgical History PAST SURGICAL HISTORY Procedure Laterality Date COLONOSCOPY 2009 COLONOSCOPY FLX DX W/COLLJ SPEC WHEN PFRMD 03/13/2021 1 small polyp-repeat in 5 years ESOPHAGOGASTRODUODENOSCOPY TRANSORAL DIAGNOSTIC 03/13/2021 grade II esophageal varices EXPLORATORY LAPAROTOMY CELIOTOMY W/WO BIOPSY SPX 03/2005 Laparotomy, exp; incidental appendectomy IVC FILTER PERCUTANEOUS 06/2004 IVC FILTER SURGICAL LAPAROSCOPY SURG CHOLECYSTECTOMY 06/08/2014 PAST SURGICAL HISTORY OF 1975 finger rt hand table saw dipj PAST SURGICAL HISTORY OF 11/2005 Bladder pacemaker PAST SURGICAL HISTORY OF Bilateral bilateral achilles repair PAST SURGICAL HISTORY OF 2006, 2007 bilateral orchiectomy, secondary to pain PAST SURGICAL HISTORY OF 2020 placement of suprapubic catheter PAST SURGICAL HISTORY OF N/A 07/16/2021 urethroplasty with BMG Family History FAMILY HISTORY Problem Relation Age of Onset Colon Cancer Mother Diabetes Father unsure of how old Coronary Artery Disease Father Hypertension Father Diabetes Sister other (sleep apnea) Sister Diabetes Sister other (sleep apnea) Sister other (Trisomy 22) Daughter other (Trisomy 22) Son Patient Allergies ALLERGIES Allergen Reactions Piperacillin Rash Vancocin [Vancomyci* Rash Latex Rash Sodium Hypochlorite* Rash Current Medications Current Outpatient Medications on File Prior to Visit Medication Sig doxepin capsule 10 mg Take 1 capsule by mouth daily at bedtime. testosterone enanthate (DELATESTRYL) 200 mg/mL injection levothyroxine (SYNTHROID) 100 mcg tablet Take 100 mcg by mouth once daily. lisinopril (ZESTRIL, PRINIVIL) 5 mg tablet Take 1 tablet by mouth once daily. enoxaparin (LOVENOX) 120 mg/0.8 mL injection Inject 0.7 mL subcutaneously every 12 hours. metFORMIN (GLUCOPHAGE) 500 mg tablet Take 1 tablet by mouth twice daily with meals. . (Patient taking differently: Take 500 mg by mouth twice daily with meals. Two tabs twice daily with meals ) ipratropium-albuterol (DUONEB) 0.5 mg-3 mg(2.5 mg base)/3 mL nebu Inhale 3 mL as instructed every 4hours as needed (wheezing). Use over 5-15minutes per nebulizer. cholecalciferol, Vitamin D3, (VITAMIN D3) 1,250 mcg (50,000 unit) cap capsule Take 1 capsule by mouth one time a week. ALBUTEROL 90 MCG/ACTUATION AEROSOL INHALER Inhale two(2) puffs four(4) times a day for wheezing andshortness of breath. acetaminophen (TYLENOL) 325 mg tablet Take 2 tablets by mouth every 6 hours as needed for pain. ACCU-CHEK GUIDE ME GLUCOSE MTR USE TO TEST BLOOD SUGAR blood sugar diagnostic (BLOOD GLUCOSE TEST) test strip Test blood sugar(s) 1 times daily. Dx: Type 2 DM - Controlled E11.9 Insulin: No Lancets lancets Test blood sugar(s) 1 times daily. Dx: Type 2 DM - Controlled E11.9 Insulin: No atorvastatin (LIPITOR) 10 mg tablet Take 1 tablet by mouth daily at bedtime. For cholesterol. CPAP Patient would like to change DME closer to home. Needs mask and supplies. Current PAP device only 3 months old. Need download from device. Lifetime supplies. Irrigation Set irst 1 kit to flush SPT as needed Syringe Disposable, Irrigation (IRRIGATION SYRINGE) syrg Use to flush SPT with Irrigation fluid sodium chloride 0.9 % IRRIGATION Use irrigation solution to flush SPT Syringe with Needle, Disp, 3 mL 22 gauge x 1 syrg Use as directed to inject testosterone once a month COMPOUNDED PRESCRIPTION Night bag for Baum catheter Urinary Bag (URINARY LEG BAG) Misc Misc Use as needed Catheter (BARD COUDE TIP CATHETER) 16 Fr Misc Misc to be used as needed No current facility-administered medications on file prior to visit. Social History Social History Tobacco Use Smoking status: Former Smoker Packs/day: 2.00 Years: 2.00 Pack years: 4.00 Types: Cigarettes Quit date: 07/04/1987 Years since quittin.2 Smokeless tobacco: Never Used Vaping Use Vaping Use: Never used Substance Use Topics Alcohol use: Yes Comment: occasional- less than 1 drink per week Drug use: No Review of Symptoms REVIEW OF SYSTEMS GENERAL: No weight loss, malaise or fevers RESPIRATORY: Negative for cough, hemoptysis, wheezing, COPD, dyspnea or shortness of breath CARDIOVASCULAR: Negative for chest pain, leg swelling, hypertension, CHF or palpitations GI: No nausea, vomiting, or diarrhea SKIN: Negative for lesions, rash, and itching EXAM: BP 102/60 Pulse 67 Resp 18 Wt 110.5 kg (243 lb 9.6 oz) SpO2 97% BMI 31.28 kg/m General Appearance: Well appearing, alert, in no acute distress, well-hydrated, well nourished.. Skin: Skin color, texture, turgor normal, no suspicious rashes or lesions. Lungs: Lungs clear to auscultation. No wheezing, rhonchi, rales.. Heart: RRR without murmur, gallop, or rubs. No ectopy. Abdomen: Normal abdominal exam, Abdomen soft, non-tender. Bowel sounds normal. No masses, organomegaly. Extremities: No deformities, edema, skin discoloration, clubbing or cyanosis. Good capillary refill. . Health Maintenance List HEPATITIS A(1 of 2 - Risk 2-dose series) Never done HEPATITIS B(1 of 3 - Risk 3-dose series) Never done PNEUMOCOCCAL(2 - PCV) due on 03/02/2008 SHINGRIX VACCINE(1 of 2) Never done COVID-19 VACCINE(3 - Booster for Pfizer series) due on 05/19/2021 LDL CHOLESTEROL due on 07/31/2021 INFLUENZA(1) due on 10/31/2021 HBA1C due on 01/02/2022 URINE ALBUMIN:CREATININE RATIO due on 03/05/2022 DIABETIC FOOT EXAM due on 03/06/2022 ANNUAL PCP TEAM CHRONIC DISEASE VISIT due on 03/06/2022 DILATED RETINAL EXAM due on 04/03/2022 COLORECTAL CANCER SCREENING due on 03/13/2026 DTAP,TDAP,TD(3 - Td or Tdap) due on 02/18/2028 HEPATITIS C SCREENING Completed HIV SCREENING Completed Data reviewed Component Latest Ref Rng & Units 05/17/2021 07/02/2021 07/17/2021 WBC 3.70 - 11.00 k/uL 3.28 (L) 5.72 RBC 4.20 - 6.00 m/uL 4.61 3.68 (L) Hemoglobin 13.0 - 17.0 g/dL 14.8 11.9 (L) Hematocrit 39.0 - 51.0 % 40.9 33.2 (L) MCV 80.0 - 100.0 fL 88.7 90.2 MCH 26.0 - 34.0 pg 32.1 32.3 MCHC 30.5 - 36.0 g/dL 36.2 (H) 35.8 RDW-CV 11.5 - 15.0 % 15.4 (H) 15.9 (H) Platelet Count 150 - 400 k/uL 53 (L) 71 (L) MPV 9.0 - 12.7 fL 8.9 (L) 8.8 (L) Neut% % 52.7 74.3 Abs Neut (ANC) 1.45 - 7.50 k/uL 1.73 4.25 Lymph% % 30.8 16.4 Abs Lymph 1.00 - 4.00 k/uL 1.01 0.94 (L) [place]% % 9.5 7.9 Abs [place] <0.87 k/uL 0.31 0.45 Eosin% % 6.4 0.9 Abs Eosin <0.46 k/uL 0.21 0.05 Baso% % 0.6 0.3 Abs Baso <0.11 k/uL <0.03 <0.03 Immature Gran % % 0.0 0.2 IMMATURE GRANS (ABS) <0.10 k/uL <0.03 <0.03 NRBC /100 WBC 0.0 0.0 Absolute nRBC <0.01 k/uL <0.01 <0.01 DTYPE Auto Auto Protein, Total 6.3 - 8.0 g/dL 5.9 (L) 6.6 Albumin 3.9 - 4.9 g/dL 3.8 (L) 4.2 Calcium 8.5 - 10.2 mg/dL 9.1 9.4 8.0 (L) Bilirubin, Total 0.2 - 1.3 mg/dL 1.4 (H) 1.9 (H) Alkaline Phosphatase 38 - 113 U/L 103 98 AST 14 - 40 U/L 27 39 ALT 10 - 54 U/L 26 40 Glucose 74 - 99 mg/dL 191 (H) 147 (H) 133 (H) BUN 9 - 24 mg/dL 13 17 10 Creatinine 0.73 - 1.22 mg/dL 0.70 (L) 0.72 (L) 0.92 Sodium 136 - 144 mmol/L 136 136 137 Potassium 3.7 - 5.1 mmol/L 4.0 4.1 4.4 Chloride 97 - 105 mmol/L 104 102 106 (H) CO2 22 - 30 mmol/L 23 23 23 Anion Gap 9 - 18 mmol/L 9 11 8 (L) eGFR >=60 mL/min/1.73m 112 110 100 Testosterone Free 4.06 - 15.6 ng/dL 30.3 (H) Testosterone 240 - 950 ng/dL 2020 (H) Hemoglobin A1C 4.3 - 5.6 % 5.2 Estimated Average Glucose mg/dL 103 TSH 0.270 - 4.200 mIU/L 0.718 Microsomal Antibody <5.6 IU/mL <1.0 Vitamin D 25 Hydroxy 31.0 - 80.0 ng/mL 18.1 (L) PTH, Intact 15 - 65 pg/mL 29 ASSESSMENT/PLAN: 1. Diabetes mellitus type II (HCC) - ICD9: 250.00, ICD10: E11.9 (primary diagnosis) Controlled. - Continue current medications - Blood glucose monitoring on a once a day schedule - Encouraged regular aerobic exercise and weight loss - Follow up in 3 months, sooner should any other issues arise. 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 - METFORMIN 1,000 MG TABLET 2. MARC (obstructive sleep apnea) - ICD9: 327.23, ICD10: G47.33 Needs to follow up with sleep medicine/DME company to have settings adjusted. Continue nightly CPAPuse and f/u PRN. 3. Obesity (BMI 30-39.9) - ICD9: 278.00, ICD10: E66.9 Weight decreasing - Behavioral intervention 4. Esophageal varices without bleeding, unspecified esophageal varices type (HCC) - ICD9: 456.1, ICD10: I85.00 Possibly 2/2 cirrhosis 2/2 BANEGAS. Awaiting liver biopsy results. F/u with GI. Discussed importance of weight loss. 5. Hypothyroidism, unspecified type - ICD9: 244.9, ICD10: E03.9 - Instructed patient on importance of taking on an empty stomach either first thing in the morning or at bedtime. - continue current dose of Synthroid 0.100 mg 6. Screening for hyperlipidemia - ICD9: V77.91, ICD10: Z13.220 - LIPID PANEL, NONFASTING Julián Urias MD documented in this encounter[facility]06-24-[facility]22 History of Present illness Narrative* Juan Amador MD - 08/23/2021 4:00 PM EDT Brief H&P No new changes to patient's health since last surgery Gen: NAD CVS: RRR, S1 S2 normal, no MRG Pulm: CTAB Abd: soft, NTND, small fistulous tract at prior SPT site Neuro: normal cogitional and motor skills * Juan Amador MD - 08/23/2021 3:47 PM EDT HPI: 51M with history of urethral stricture, chronic SPT, now s/p bulbar and membranous urethroplasty with bilateral BMG on 07/16/2021. Baum catheter removed with [facility] on 08/06/2021. SPT removed on 08/09/2021. He is voiding well and feels he is emptying his bladder well. However, he reports persistent drainage from SPT tract site. He can't really quantify the amount of leakage but it is usually enough to soak through gauze over the course of the day and enough to make a small hand towel damp overnight. 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 Wong Hematuria work up in progress as of 09/24/04 Hepatomegaly Hypogonadism in male 2/2 orchiectomy for testicular pain Hypothyroidism Left-sided muscle weakness intermittent, has had extensive work up Obesity MARC (obstructive sleep apnea) Seeing Dr. Yin, using CPAP Osteopenia of neck of left femur 06/18/2020 PMH - PAST MEDICAL HISTORY OF scrotal swelling Pulmonary embolism (HCC) 1999' Retention of urine, unspecified Snoring Splenomegaly Thrombocytopenia (HCC) Urethral stricture 2020 Vitamin D deficiency PAST SURGICAL HISTORY Procedure Laterality Date COLONOSCOPY 2009 COLONOSCOPY FLX DX W/COLLJ SPEC WHEN PFRMD 03/13/2021 1 small polyp-repeat in 5 years ESOPHAGOGASTRODUODENOSCOPY TRANSORAL DIAGNOSTIC 03/13/2021 grade II esophageal varices EXPLORATORY LAPAROTOMY CELIOTOMY W/WO BIOPSY SPX 03/2005 Laparotomy, exp; incidental appendectomy IVC FILTER PERCUTANEOUS 06/2004 IVC FILTER SURGICAL LAPAROSCOPY SURG CHOLECYSTECTOMY 06/08/2014 PAST SURGICAL HISTORY OF 1975 finger rt hand table saw dipj PAST SURGICAL HISTORY OF 11/2005 Bladder pacemaker PAST SURGICAL HISTORY OF Bilateral bilateral achilles repair 1999' PAST SURGICAL HISTORY OF 2006, 2007 bilateral orchiectomy, secondary to pain PAST SURGICAL HISTORY OF 2020 placement of suprapubic catheter PAST SURGICAL HISTORY OF N/A 07/16/2021 urethroplasty with BMG Social History Tobacco Use Smoking status: Former Smoker Packs/day: 2.00 Years: 2.00 Pack years: 4.00 Types: Cigarettes Quit date: 07/04/1987 Years since quittin.1 Smokeless tobacco: Never Used Vaping Use Vaping Use: Never used Substance Use Topics Alcohol use: Yes Comment: occasional- less than 1 drink per week Drug use: No Current Outpatient Medications on File Prior to Visit Medication Sig acetaminophen (TYLENOL) 325 mg tablet Take 2 tablets by mouth every 6 hours as needed for pain. doxepin capsule 10 mg Take 1 capsule by mouth daily at bedtime. ACCU-CHEK GUIDE ME GLUCOSE MTR USE TO TEST BLOOD SUGAR testosterone enanthate (DELATESTRYL) 200 mg/mL injection levothyroxine (SYNTHROID) 100 mcg tablet Take 100 mcg by mouth once daily. blood sugar diagnostic (BLOOD GLUCOSE TEST) test strip Test blood sugar(s) 1 times daily. Dx: Type 2 DM - Controlled E11.9 Insulin: No Lancets lancets Test blood sugar(s) 1 times daily. Dx: Type 2 DM - Controlled E11.9 Insulin: No lisinopril (ZESTRIL, PRINIVIL) 5 mg tablet Take 1 tablet by mouth once daily. atorvastatin (LIPITOR) 10 mg tablet Take 1 tablet by mouth daily at bedtime. For cholesterol. enoxaparin (LOVENOX) 120 mg/0.8 mL injection Inject 0.7 mL subcutaneously every 12 hours. metFORMIN (GLUCOPHAGE) 500 mg tablet Take 1 tablet by mouth twice daily with meals. . (Patient taking differently: Take 500 mg by mouth twice daily with meals. Two tabs twice daily with meals ) CPAP Patient would like to change DME closer to home. Needs mask and supplies. Current PAP device only 3 months old. Need download from device. Lifetime supplies. Irrigation Set irst 1 kit to flush SPT as needed Syringe Disposable, Irrigation (IRRIGATION SYRINGE) syrg Use to flush SPT with Irrigation fluid sodium chloride 0.9 % IRRIGATION Use irrigation solution to flush SPT ipratropium-albuterol (DUONEB) 0.5 mg-3 mg(2.5 mg base)/3 mL nebu Inhale 3 mL as instructed every 4hours as needed (wheezing). Use over 5-15minutes per nebulizer. cholecalciferol, Vitamin D3, (VITAMIN D3) 1,250 mcg (50,000 unit) cap capsule Take 1 capsule by mouth one time a week. Syringe with Needle, Disp, 3 mL 22 gauge x 1 syrg Use as directed to inject testosterone once a month COMPOUNDED PRESCRIPTION Night bag for Baum catheter Urinary Bag (URINARY LEG BAG) Misc Misc Use as needed Catheter (BARD COUDE TIP CATHETER) 16 Fr Misc Misc to be used as needed ALBUTEROL 90 MCG/ACTUATION AEROSOL INHALER Inhale two(2) puffs four(4) times a day for wheezing andshortness of breath. No current facility-administered medications on file prior to visit. ROS: Constitutional: negative Gastrointestinal: negative PHYSICAL EXAM: BP 107/70 (BP Site: Left Arm, BP Position: Sitting, BP Cuff Size: Regular Adult) Pulse 83 GENERAL: Wnl nutrition, no deformities, healthy appearing HEENT: buccal sites healing well ABDOMEN: Soft, nontender, nondistended, no masses, small 2-3 mm fistulous tract at SPT site, appears epithelized GENITOURINARY: MALE EXAM: Incision c/d/i DATA/OR LABS TO BE REVIEWED: (Simple=1 data point; Complex= 2 or more) PSA (ng/mL) Date Value 01/31/2020 <0.03 02/20/2017 0.06 PSA Screening (ng/mL) Date Value 05/09/2010 0.66 01/21/2010 0.16 Creatinine (mg/dL) Date Value 07/17/2021 0.92 07/02/2021 0.72 05/17/2021 0.70 02/12/2021 0.74 01/11/2021 0.66 07/31/2020 0.62 02/13/2020 0.74 11/16/2019 0.78 Testosterone (ng/dL) Date Value 07/31/2020 302 01/31/2020 12 PVR 0 A/P: 51M with history of urethral stricture, chronic SPT, now s/p bulbar and membranous urethroplasty with bilateral BMG on 07/16/2021. Overall doing well but he has persistent drainage from SPT tract since SPT removal on 08/09/2021. Options discussed with patient. Silver nitrate applied to the tract. If this does not work, will plan for closure of tract in early August. Patient is amenable. Consent signed. -UCx ordered. Juan Amador MD documented in this encounterT[facility]06-10-2022 Miscellaneous Notes* Telephone Encounter - Shanthi Grace RN - 08/09/2021 9:35 AM EDT ----- Message from Michelle Ordoñez sent at 08/08/2021 10:25 AM EDT ----- Regarding: SPT removal Contact: Patient wants to speak to Dr. Solares's nurse regarding the removal of his SPT. I advised him the you sent a message to have him scheduled in [place] next week, and he became upset with me. He told me that is not what I asked you! I want to speak to the nurse. Give them a message and if they don't call me back I will have to deal with it I told him to stay on the phone so I get my information correct this time. He told me I had the correct information. He reluctantly stayed on line with me. Called Hal Blancas and informed him that it is preferred that he go to [place] to get SPT removed (closer to his home to address gas spear to drive to [place]). Patient says that he can remove it himself because he has had a catheter for 20 years. Appointment made with nurse in [place], encouraged patient to keep appointment. Shanthi Grace RN documented in this encounterToledo [facility]06-07-2022 History of Present illness Narrative* Shanthi Grace RN - 08/06/2021 11:00 AM EDT HPI: Hal Blancas is a 51 year old male with PMH of penile urethral stricture managed with SPT. Had tube placed nearly 2 years ago and lost to follow up. Medical risks include splenomegaly, lupus anticoagulant, esoph varices, diabetes, thrombocytopenia. RUG 03/27/2021: RUG:panbulbar stric with at least 3 segments that are near/total obliterated penile urethra appears open Hal Blancas had the following procedure with Dr. Solares on 07/16/2021: Urethroplasty with OMG VCUG 08/06/2021: No obstruction or leak Hal Blancas is here today for scheduled surgical follow up. Main complaints of pain at the oral graft sites. Patient having difficulty opening mouth wide. Not wearing upper dentures most days due to irritation, and when he does wear them, has to take pain medication for relief. Refilled Peredex script and has been using as prescribed. States that the pain and discomfort is getting better, but is still having difficulty. Able to eat soft foods. Also complaining of itching of the scrotum wheresurgical incision is. Hal Blancas states that he is able to perform actiities of daily living without issue. Appetite is good. Completed Bactrim as ordered. Last dose on 07/24/2021. Bowel function returned to normal. 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 Wong Hematuria work up in progress as of 09/24/04 Hepatomegaly Hypogonadism in male 2/2 orchiectomy for testicular pain Hypothyroidism Left-sided muscle weakness intermittent, has had extensive work up Obesity MARC (obstructive sleep apnea) Seeing Dr. Yin, using CPAP Osteopenia of neck of left femur 06/18/2020 PMH - PAST MEDICAL HISTORY OF scrotal swelling Pulmonary embolism (HCC) 1999' Retention of urine, unspecified Snoring Splenomegaly Thrombocytopenia (HCC) Urethral stricture 2020 Vitamin D deficiency PAST SURGICAL HISTORY Procedure Laterality Date COLONOSCOPY 2009 COLONOSCOPY FLX DX W/COLLJ SPEC WHEN PFRMD 03/13/2021 1 small polyp-repeat in 5 years ESOPHAGOGASTRODUODENOSCOPY TRANSORAL DIAGNOSTIC 03/13/2021 grade II esophageal varices EXPLORATORY LAPAROTOMY CELIOTOMY W/WO BIOPSY SPX 03/2005 Laparotomy, exp; incidental appendectomy IVC FILTER PERCUTANEOUS 06/2004 IVC FILTER SURGICAL LAPAROSCOPY SURG CHOLECYSTECTOMY 06/08/2014 PAST SURGICAL HISTORY OF 1975 finger rt hand table saw dipj PAST SURGICAL HISTORY OF 11/2005 Bladder pacemaker PAST SURGICAL HISTORY OF Bilateral bilateral achilles repair PAST SURGICAL HISTORY OF 2006, 2007 bilateral orchiectomy, secondary to pain PAST SURGICAL HISTORY OF 2020 placement of suprapubic catheter PAST SURGICAL HISTORY OF N/A 07/16/2021 urethroplasty with BMG Social History Tobacco Use Smoking status: Former Smoker Packs/day: 2.00 Years: 2.00 Pack years: 4.00 Types: Cigarettes Quit date: 07/04/1987 Years since quittin.1 Smokeless tobacco: Never Used Vaping Use Vaping Use: Never used Substance Use Topics Alcohol use: Yes Comment: occasional- less than 1 drink per week Drug use: No Current Outpatient Medications Medication Sig Dispense Refill Chlorhexidine Gluconate (PERIDEX) 0.12 % solution Use 15 mL as instructed twice daily for 10 days. Rinse around mouth for 30 seconds then expectorate 300 mL 0 acetaminophen (TYLENOL) 325 mg tablet Take 2 tablets by mouth every 6 hours as needed for pain. docusate sodium (COLACE) 100 mg capsule Take 1 capsule by mouth twice daily. 60 capsule 0 doxepin capsule 10 mg Take 1 capsule by mouth daily at bedtime. 30 capsule 5 ACCU-CHEK GUIDE ME GLUCOSE MTR USE TO TEST BLOOD SUGAR testosterone enanthate (DELATESTRYL) 200 mg/mL injection levothyroxine (SYNTHROID) 100 mcg tablet Take 100 mcg by mouth once daily. blood sugar diagnostic (BLOOD GLUCOSE TEST) test strip Test blood sugar(s) 1 times daily. Dx: Type 2 DM - Controlled E11.9 Insulin: No 50 Strip 11 Lancets lancets Test blood sugar(s) 1 times daily. Dx: Type 2 DM - Controlled E11.9 Insulin: No 100Each 11 lisinopril (ZESTRIL, PRINIVIL) 5 mg tablet Take 1 tablet by mouth once daily. 30 tablet 5 atorvastatin (LIPITOR) 10 mg tablet Take 1 tablet by mouth daily at bedtime. For cholesterol. 30 tablet 5 enoxaparin (LOVENOX) 120 mg/0.8 mL injection Inject 0.7 mL subcutaneously every 12 hours. 60 Syringe 2 metFORMIN (GLUCOPHAGE) 500 mg tablet Take 1 tablet by mouth twice daily with meals. . (Patient taking differently: Take 500 mg by mouth twice daily with meals. Two tabs twice daily with meals ) 60 tablet 11 CPAP Patient would like to change DME closer to home. Needs mask and supplies. Current PAP device only 3 months old. Need download from device. Lifetime supplies. 1 Device 99 Irrigation Set irst 1 kit to flush SPT as needed 10 Each 3 Syringe Disposable, Irrigation (IRRIGATION SYRINGE) syrg Use to flush SPT with Irrigation fluid 10 Syringe 3 sodium chloride 0.9 % IRRIGATION Use irrigation solution to flush SPT 1000 mL 3 ipratropium-albuterol (DUONEB) 0.5 mg-3 mg(2.5 mg base)/3 mL nebu Inhale 3 mL as instructed every 4hours as needed (wheezing). Use over 5-15minutes per nebulizer. 50 Vial 1 cholecalciferol, Vitamin D3, (VITAMIN D3) 1,250 mcg (50,000 unit) cap capsule Take 1 capsule by mouth one time a week. 12 capsule 0 Syringe with Needle, Disp, 3 mL 22 gauge x 1 syrg Use as directed to inject testosterone once a month 3 Syringe 1 COMPOUNDED PRESCRIPTION Night bag for Baum catheter 1 bag 11 Urinary Bag (URINARY LEG BAG) Misc Misc Use as needed 1 Each 11 Catheter (BARD COUDE TIP CATHETER) 16 Fr Misc Misc to be used as needed 1 Each 3 ALBUTEROL 90 MCG/ACTUATION AEROSOL INHALER Inhale two(2) puffs four(4) times a day for wheezing andshortness of breath. 1 0 No current facility-administered medications for this visit. No current facility-administered medications on file prior to visit. Baum catheter disconnected from the collection bag. 50 cc sterile water instilled into bladder until patient expresses desire to void. Baum capped and Hal Blancas able to spontaneously void 50 cc clear urine using abdominal muscles. 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 Educated on bladder irritants such as caffeine and alcohol and eliminating those to reduce urgency. Asked Hal Blancas to call the office by week's end to report on progress and to discuss timing of SPT removal. Buccal graft site still open with white slough tissue. Encouraged continue use of Peredex and liquids to promote sufficient hydration. Informed Hal Blancas that he will follow up with Dr. Solares in 3-4 months to further assess healing and voiding function. Shanthi Grace RN documented in this encounterToledo [facility]06-07-2022 History of Present illness Narrative* RT Jade(R) - 08/06/2021 10:40 AM EDT Radiology Service Progress Note PATIENT NAME: Hal Blancas DATE OF SERVICE: August 06, 2021 TIME: 11:46 AM PATIENT IDENTITY VERIFICATION COMPLETED USING TWO (2) IDENTIFIERS: Name and Date of confirmedby patient verbally. FALL SCREENING: Has the patient had 2 falls in the last year or 1 fall with injury or currently using an Ambulatory Assistive Device (Walker, Cane, Wheelchair, Crutches, etc.)? No PATIENT GENDER DATA: Male PATIENT RELEVANT IMPLANT DATA REVIEWED: Yes RADIOLOGY DEPARTMENT: General X-ray: Exam(s) Completed: GI/ Procedure(s): [facility]CU (Voiding Cysto Urethrogram) PERIPHERAL IV DATA: Not applicable SIGNED BY: RT Jade(R) August 06, 2021 11:46 AM documented in this encounterToledo Hospital05-24-2022 Miscellaneous Notes* Telephone Encounter - Analy Monroy APRN.CNP - 07/23/2021 12:53 PM EDT Images from the original note were not included. Hal Blancas had urethroplasty with grafts harvested from bilateral buccal mucosa with Dr. Solares on 07/16/2021; discharged on 07/17/2021 with 10 days of Peridex. Called Hal Marcus Yonny. He reports that he already talked with someone else about the picture that he sent and made a plan for the next week; plans to send more pictures early next week. Reassured Hal Marcus Yonny that picture looks okay to me and that it is common to have oral pain at this stage of healing (sometimes even worse than perineal incision). Hal Marcus Yonny verbalizes understanding and reports that perineal incision is healing well. Hal Marcus Yonny will send update in 1 week or sooner if fever or purulent drainage occurs. Analy Monroy APRN.CNP * Telephone Encounter - Analy Monroy APRN.CNP - 07/23/2021 12:52 PM EDT ----- Message from Michelle Ordoñez sent at 07/23/2021 10:51 AM EDT ----- Regarding: Bucal Graft incision infection Patient is still having mouth pain. He is sending photos to [facility]. documented in this encounterToledo Hospital05-23-2022 Miscellaneous Notes* Telephone Encounter - Karen Stewart LPN - 07/22/2021 4:24 PM EDT Faxed order for extra drainage bags to [facility] per patient request. Karen Stewart LPN documented in this encounterToledo Hospital05-16-2022 History of Present illness Narrative* Quentin Chavez MD - 07/15/2021 7:34 AM EDT Images from the original note were not included. [facility] Department of Cardiovascular Medicine SECTION OF CLINICAL CARDIOLOGY OUTPATIENT VISIT DATE July 15, 2021 OUTPATIENT VISIT TYPE NEW PRIMARY CARE PHYSICIAN: Julián Urias [address] [place] [address] REFERRING PHYSICIAN: SELF CHIEF COMPLAINT: No chief complaint on file. HISTORY OF PRESENT ILLNESS: Hal Blancas is a 51 year old male with a past medical history significant for MARC on CPAP, DM2, Class 1 obersity, thrombocytopenia 2/2 splenomegaly, Hx of VTE in the setting of Antiphospholipid syndrome s/p IVC filter, who presents for pre-operative evaluation. The patient has a history of a urethral stricture and currently has a suprapubic catheter. He is scheduled to undergo urethroplasty tomorrow with urology (Dr. Solares). He was seen at the anesthesia pre-operative clinic on 07/03 in [place] and was told he had an abnormal EKG. He has no symptoms from a cardiac standpoint and is able to walk two flights of stairs without difficulty. He denies chest pain, shortness of breath, orthopnea, cough, edema, palpitations, PND, lightheadedness or syncope. NURSING INTAKE: Mr. Blancas is a 51 yo male presenting for cardiovascular medicine pre-op evaluation for urethroplasty on 07/16/2021. 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 Wong Hematuria work up in progress as of 09/24/04 Hepatomegaly Hypogonadism in male 2/2 orchiectomy for testicular pain Hypothyroidism Left-sided muscle weakness intermittent, has had extensive work up Obesity MARC (obstructive sleep apnea) Seeing Dr. Yin, using CPAP Osteopenia of neck of left femur 06/18/2020 PMH - PAST MEDICAL HISTORY OF scrotal swelling Pulmonary embolism (HCC) Retention of urine, unspecified Snoring Splenomegaly Thrombocytopenia (HCC) Urethral stricture 2020 Vitamin D deficiency PAST SURGICAL HISTORY Procedure Laterality Date COLONOSCOPY 2009 COLONOSCOPY FLX DX W/COLLJ SPEC WHEN PFRMD 03/13/2021 1 small polyp-repeat in 5 years ESOPHAGOGASTRODUODENOSCOPY TRANSORAL DIAGNOSTIC 03/13/2021 grade II esophageal varices EXPLORATORY LAPAROTOMY CELIOTOMY W/WO BIOPSY SPX 03/2005 Laparotomy, exp; incidental appendectomy IVC FILTER PERCUTANEOUS 06/2004 IVC FILTER SURGICAL LAPAROSCOPY SURG CHOLECYSTECTOMY 06/08/2014 PAST SURGICAL HISTORY OF 1975 finger rt hand table saw dipj PAST SURGICAL HISTORY OF 11/2005 Bladder pacemaker PAST SURGICAL HISTORY OF Bilateral bilateral achilles repair PAST SURGICAL HISTORY OF 2006, 2007 bilateral orchiectomy, secondary to pain PAST SURGICAL HISTORY OF 2020 placement of suprapubic catheter SOCIAL HISTORY Social History Tobacco Use Smoking status: Former Smoker Packs/day: 2.00 Years: 2.00 Pack years: 4.00 Types: Cigarettes Quit date: 07/04/1987 Years since quittin.0 Smokeless tobacco: Never Used Vaping Use Vaping Use: Never used Substance Use Topics Alcohol use: Yes Comment: occasional- less than 1 drink per week Drug use: No FAMILY HISTORY Problem Relation Age of Onset Colon Cancer Mother Diabetes Father unsure of how old Coronary Artery Disease Father Hypertension Father Diabetes Sister other (sleep apnea) Sister Diabetes Sister other (sleep apnea) Sister other (Trisomy 22) Daughter other (Trisomy 22) Son ALLERGIES: ALLERGIES Allergen Reactions Piperacillin Rash Vancocin [Vancomyci* Rash Latex Rash Sodium Hypochlorite* Rash MEDICATIONS: levoFLOXacin (LEVAQUIN) 750 mg tablet Take 1 tablet by mouth as directed for 1 day prior to HOPS procedure. doxepin capsule 10 mg Take 1 capsule by mouth daily at bedtime. ACCU-CHEK GUIDE ME GLUCOSE MTR USE TO TEST BLOOD SUGAR testosterone enanthate (DELATESTRYL) 200 mg/mL injection levothyroxine (SYNTHROID) 100 mcg tablet Take 100 mcg by mouth once daily. blood sugar diagnostic (BLOOD GLUCOSE TEST) test strip Test blood sugar(s) 1 times daily. Dx: Type 2 DM - Controlled E11.9 Insulin: No Lancets lancets Test blood sugar(s) 1 times daily. Dx: Type 2 DM - Controlled E11.9 Insulin: No lisinopril (ZESTRIL, PRINIVIL) 5 mg tablet Take 1 tablet by mouth once daily. atorvastatin (LIPITOR) 10 mg tablet Take 1 tablet by mouth daily at bedtime. For cholesterol. enoxaparin (LOVENOX) 120 mg/0.8 mL injection Inject 0.7 mL subcutaneously every 12 hours. metFORMIN (GLUCOPHAGE) 500 mg tablet Take 1 tablet by mouth twice daily with meals. . CPAP Patient would like to change DME closer to home. Needs mask and supplies. Current PAP device only 3 months old. Need download from device. Lifetime supplies. Irrigation Set irst 1 kit to flush SPT as needed Syringe Disposable, Irrigation (IRRIGATION SYRINGE) syrg Use to flush SPT with Irrigation fluid sodium chloride 0.9 % IRRIGATION Use irrigation solution to flush SPT ipratropium-albuterol (DUONEB) 0.5 mg-3 mg(2.5 mg base)/3 mL nebu Inhale 3 mL as instructed every 4hours as needed (wheezing). Use over 5-15minutes per nebulizer. cholecalciferol, Vitamin D3, (VITAMIN D3) 1,250 mcg (50,000 unit) cap capsule Take 1 capsule by mouth one time a week. Syringe with Needle, Disp, 3 mL 22 gauge x 1 syrg Use as directed to inject testosterone once a month COMPOUNDED PRESCRIPTION Night bag for Baum catheter Urinary Bag (URINARY LEG BAG) Misc Misc Use as needed Catheter (BARD COUDE TIP CATHETER) 16 Fr Misc Misc to be used as needed ALBUTEROL 90 MCG/ACTUATION AEROSOL INHALER Inhale two(2) puffs four(4) times a day for wheezing andshortness of breath. REVIEW OF SYSTEMS: GENERAL: Negative for: Weight loss or gain, Fever or Chills, Weakness and Sleep difficulties. HEENT: Negative for: Headache, Impaired Vision, Glasses, Hearing Impairment, Ringing in Ears, Nosebleeds, Poor dental care, Bleeding Gums, Dentures NECK: Negative for: Swelling, Pain, Stiffness RESPIRATORY: Negative for: Cough, Blood in Sputum, Shortness of breath, Wheezing, Apnea GASTROINTESTINAL: Negative for: Trouble swallowing, Heartburn, Change in bowel habits, Blood in stool, Dark black stools MUSCULOSKELETAL: Negative for: Muscle or joint pain, Stiffness , Joint swelling NEUROLOGIC/PSYCHIATRIC: Negative for: Weakness, Paralysis, Numbness, Tingling, Tremor, Nervousness,Depressed mood, Memory loss SKIN: Negative for: Rashes, Itching HEMATOLOGICAL/LYMPHATIC: Negative for: Easy bruising , Easy bleeding ENDOCRINE: Negative for: Heat or cold intolerance, Excessive sweating, Frequent urination, Frequentthirst PHYSICAL EXAMINATION: BP 120/75 (BP Site: Right Arm) Pulse 83 Resp 16 Wt 111.6 kg (246 lb) SpO2 97% BMI 31.58 kg/m General: Well appearing, in no acute distress. Skin: No clubbing, no cyanosis. Eyes: Extra ocular movements intact Oropharynx: Teeth in good repair. Neck: No jugular venous distention, no carotid bruits, carotids have a normal upstroke, no palpablethyromegaly. Lungs: Clear to auscultation bilaterally, no wheezing or rhonchi. Heart: Regular rhythm, PMI not displaced, S1, S2 normal, no S3, no S4, no heaves, no rub and no murmur. Abdomen: Soft, nontender, bowel sounds normal, no palpable organomegaly, no bruits. Extremities: No peripheral edema . Grade 2/4 distal pulses bilaterally. Neuro: Oriented to person, place and time, alert, cooperative, gait coordinated. CARDIOVASCULAR MEDICINE TESTING: Electrocardiogram: Last EKG Result Conclusion ECG COMPLETE Collected: 07/15/2021 7:13 AM (Preliminary result) Impression: NORMAL SINUS RHYTHM NORMAL ECG Complete Results I have personally reviewed the Electrocardiogram. IMPRESSION: Mr. Blancas is a 51 year old male with a Hx of MARC on CPAP, DM2, Class 1 obersity, thrombocytopenia 2/2 splenomegaly, Hx of VTE in the setting of Antiphospholipid syndrome who presents for pre-operative evaluation. -EKG shows decreased QRS amplitude in the inferior leads, otherwise completely unremarkable EKG. -No recent echocardiogram in our system (normal in 2004) -CT scan of the chest from 2017 shows no evidence of coronary calcifications. -The patient is asymtomatic -RCRI risk score is 0 In summary the patient is asymptomatic and at low risk for sara-operative cardiac complications. PLAN AND RECOMMENDATIONS: -Hold lisinopril 5 mg on the morning of the surgery. -No objection to proceed with the surgery I personally interviewed, confirmed and edited the above information as obtained by others. CONTACT INFORMATION: Jaswinder Shin MD Internal Medicine PGY-2 [id number] - Click to Page 07/15/2021 8:07 AM . [facility] STAFF PHYSICIAN NOTE OF PERSONAL INVOLVEMENT IN CARE I have reviewed the consult note obtained and documented by the resident and I personally participated in the navarrete components. I have discussed the case and management of the patient's care. The following comments revise or confirm relevant navarrete components of their note. IMPRESSION: This is a 51 year old male with T2DM (non insulin dependent) who presents for preop risk assessment. He is scheduled for a urological procedure (urethroplasty) with Dr Rainer Solares. The patient has hepatic steatosis and thrombocytopenia He has no sig prior cardiac history. Smoked briefly as a teenager. Father had CAD. He has prior h/o DVTs (lupus AC) he has been on Lovenox since 2003. Patient denies any exertional chest pain, dyspnea, palpitations, syncope, orthopnea, edema or paroxysmal nocturnal dyspnea. EKG normal at baseline. PLAN: I agree with above. No objection to proceeding with urethroplasty from cardiovascular standpoint. I would recommend DVT prophylaxis and resuming Lovenox As soon as appropriate from urologic stand point. Would recommend follow up with Vascular medicine for commercial loan processor management of Lupus AC and anticoagulation. I will make arrangements for a consult with Dr. Nascimento Also recommend hepatology consult [facility]. SIGNATURE: Quentin Chavez MD DATE of SERVICE: July 15, 2021 TIME of SERVICE: 8:46 AM documented in this encounterToledo Hospital05-10-2022 History of Present illness Narrative* Analy Monroy APRN.CNP - 07/09/2021 4:21 PM EDT Signed pended order for urine culture to be collected from SPT by urology nurse in [place] prior to urethroplasty with Dr. Solares on 07/16/2021. Analy Monroy APRN.CNP documented in this encounterToledo Hospital05-09-2022 Miscellaneous Notes* Telephone Encounter - Tena Mahan LPN - 07/08/2021 3:09 PM EDT Sleep study order and information faxed to [facility] Sleep Disorders lab. Tena Mahan LPN documented in this encounterToledo Hospital05-09-2022 Miscellaneous Notes* Telephone Encounter - Tena Mahan LPN - 07/08/2021 2:21 PM EDT Patient seen for OV today. Tena Mahan LPN * Telephone Encounter - Tena Mahan LPN - 07/08/2021 9:53 AM EDT Message left for pt. Inquiring where latest sleep study was done. Tena Mahan LPN documented in this encounterToledo Hospital05-09-2022 History of Present illness Narrative* Renny Yin Jr., MD - 07/08/2021 10:14 AM EDT ESTABLISHED PATIENT VISIT CHIEF COMPLAINT: MARC HISTORY OF PRESENT ILLNESS: Hal Blancas is a 51 year old male, BMI 31.97 kg/m2 with a PMH significant for MARC. Last seen on 01/10/2020 and per my note: 1. Obstructive sleep apnea (adult) (pediatric) - ICD9: 327.23, ICD10: G47.33 (primary diagnosis) 2. Class 1 obesity with body mass index (BMI) of 32.0 to 32.9 in adult, unspecified obesity type, unspecified whether serious comorbidity present - ICD9: 278.00, V85.32, ICD10: E66.9, Z68.32 Patient with history of MARC. As noted, I previously saw patient years ago (>4), but office records not available for review, nor are more recent records. I did receive most recent PAP titration of10/22/15 from [facility] recommending CPAP 15 cmH2O with EPR of 3 at that time. Patient now with new devicebut needing supplies. Subjectively doing well on PAP. However, I have requested PAP downloads to determine if objectivelyalso doing well or if change in PAP settings are necessary. Patient is understanding of this and assoon as downloads available and reviewed I will contact patient with results. In meantime, Rx will be sent for new PAP supplies. He would also like to have a DME closer to home,and did inquire about [facility]. Will see if they would accept his insurance. Discussed with patient: the physiology of OSAS, medical conditions associated with OSAS (DM, HTN, CAD, Depression, Stroke, Headache...) and treatment options (UPPP, Dental appliances, CPAP...). Advised patient to avoid activities that could harm self or others when tired/sleepy, including driving and/or operating heavy machinery. Encouraged weight loss, and continued compliance with other medications. Pt states received a new PAP device, that he received from [employer]. For past 90 days, used 84days with avg use of 7 hours 47 minutes. AHI appears elevated on many nights, but still in mild range. Machine reports mask fits well. States feels like waking up a lot more during the night with themachine on. States when turns on with ramp goes to sleep and is fine, but if wakes up during the night he is unable to get back to sleep. States can wake anywhere 2-3 to 5-6 times per night. Pt states he feels air coming out of mask, but machine is reporting 100% mask fit. Current PAP set at 15 cmH2O with humidification. Sometime feels like too much air. States no longer ingesting sugars due to dx of DM. No RLS symptoms. Going to bed about 9-MN. Typically takes about 30 minutes to fall asleep -using doxepin as rx'd by Dr. Urias. Without doxepin some nights goes right to sleep and others hedoes not. Waking to start the day about 7AM. States feels ready to go when he wakes, but may go back to bed based on what is going on in the day. Mild sinus congestion at night. Pt has lost about 14 pounds since last visit. He is down somewhere between 20-30 pounds since last sleep study. REVIEW OF SYSTEMS GENERAL:No weight loss, malaise or fevers. HEENT:Negative for frequent or significant headaches, No changes in hearing or vision, no nose bleeds or other nasal problems RESPIRATORY: Negative for cough, wheezing or shortness of breath. CARDIOVASCULAR: Negative for chest pain, leg swelling or palpitations. ENDO: DM with need for insulin. : Suprapubic cath in place. LAB/IMAGING: Those performed since patient's last visit have been reviewed. WBC (k/uL) Date Value 07/02/2021 3.28 (L) RBC (m/uL) Date Value 07/02/2021 4.61 Hemoglobin (g/dL) Date Value 07/02/2021 14.8 Hematocrit (%) Date Value 07/02/2021 40.9 MCV (fL) Date Value 07/02/2021 88.7 MCH (pg) Date Value 07/02/2021 32.1 MCHC (g/dL) Date Value 07/02/2021 36.2 (H) RDW-CV (%) Date Value 07/02/2021 15.4 (H) Platelet Count (k/uL) Date Value 07/02/2021 53 (L) MPV (fL) Date Value 07/02/2021 8.9 (L) Glucose (mg/dL) Date Value 07/02/2021 147 (H) BUN (mg/dL) Date Value 07/02/2021 17 Creatinine (mg/dL) Date Value 07/02/2021 0.72 (L) Sodium (mmol/L) Date Value 07/02/2021 136 Potassium (mmol/L) Date Value 07/02/2021 4.1 Chloride (mmol/L) Date Value 07/02/2021 102 CO2 (mmol/L) Date Value 07/02/2021 23 Protein, Total (g/dL) Date Value 07/02/2021 6.6 Albumin (g/dL) Date Value 07/02/2021 4.2 Calcium, Total (mg/dL) Date Value 07/02/2021 9.4 Alkaline Phosphatase (U/L) Date Value 07/02/2021 98 Bilirubin, Total (mg/dL) Date Value 07/02/2021 1.9 (H) AST (U/L) Date Value 07/02/2021 39 ALT (U/L) Date Value 07/02/2021 40 Hep C Antibody IA (no units) Date Value 04/11/2016 Negative MEDICATIONS: doxepin capsule 10 mg Take 1 capsule by mouth daily at bedtime. ACCU-CHEK GUIDE ME GLUCOSE MTR USE TO TEST BLOOD SUGAR testosterone enanthate (DELATESTRYL) 200 mg/mL injection levothyroxine (SYNTHROID) 100 mcg tablet Take 100 mcg by mouth once daily. blood sugar diagnostic (BLOOD GLUCOSE TEST) test strip Test blood sugar(s) 1 times daily. Dx: Type 2 DM - Controlled E11.9 Insulin: No Lancets lancets Test blood sugar(s) 1 times daily. Dx: Type 2 DM - Controlled E11.9 Insulin: No lisinopril (ZESTRIL, PRINIVIL) 5 mg tablet Take 1 tablet by mouth once daily. atorvastatin (LIPITOR) 10 mg tablet Take 1 tablet by mouth daily at bedtime. For cholesterol. enoxaparin (LOVENOX) 120 mg/0.8 mL injection Inject 0.7 mL subcutaneously every 12 hours. metFORMIN (GLUCOPHAGE) 500 mg tablet Take 1 tablet by mouth twice daily with meals. . CPAP Patient would like to change DME closer to home. Needs mask and supplies. Current PAP device only 3 months old. Need download from device. Lifetime supplies. Irrigation Set irst 1 kit to flush SPT as needed Syringe Disposable, Irrigation (IRRIGATION SYRINGE) syrg Use to flush SPT with Irrigation fluid sodium chloride 0.9 % IRRIGATION Use irrigation solution to flush SPT ipratropium-albuterol (DUONEB) 0.5 mg-3 mg(2.5 mg base)/3 mL nebu Inhale 3 mL as instructed every 4hours as needed (wheezing). Use over 5-15minutes per nebulizer. cholecalciferol, Vitamin D3, (VITAMIN D3) 1,250 mcg (50,000 unit) cap capsule Take 1 capsule by mouth one time a week. Syringe with Needle, Disp, 3 mL 22 gauge x 1 syrg Use as directed to inject testosterone once a month COMPOUNDED PRESCRIPTION Night bag for Baum catheter Urinary Bag (URINARY LEG BAG) [facility] Use as needed Catheter (BARD COUDE TIP CATHETER) 16 Fr Misc Misc to be used as needed ALBUTEROL 90 MCG/ACTUATION AEROSOL INHALER Inhale two(2) puffs four(4) times a day for wheezing andshortness of breath. 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 Wong Hematuria work up in progress as of 09/24/04 Hepatomegaly Hypogonadism in male / orchiectomy for testicular pain Hypothyroidism Left-sided muscle weakness intermittent, has had extensive work up Obesity MARC (obstructive sleep apnea) Seeing Dr. Yin, using CPAP Osteopenia of neck of left femur 06/18/2020 PMH - PAST MEDICAL HISTORY OF scrotal swelling Pulmonary embolism (HCC) Retention of urine, unspecified Snoring Splenomegaly Thrombocytopenia (HCC) Urethral stricture 2020 Vitamin D deficiency FAMILY HISTORY Problem Relation Age of Onset Diabetes Father unsure of how old Coronary Artery Disease Father Colon Cancer Mother other (Trisomy 22) Son other (Trisomy 22) Daughter Diabetes Sister other (sleep apnea) Sister Diabetes Sister other (sleep apnea) Sister SOCIAL HISTORY Social History Tobacco Use Smoking status: Former Smoker Packs/day: 2.00 Years: 2.00 Pack years: 4.00 Types: Cigarettes Quit date: 07/04/1987 Years since quittin.0 Smokeless tobacco: Never Used Vaping Use Vaping Use: Never used Substance Use Topics Alcohol use: Yes Comment: occasional- less than 1 drink per week Drug use: No PHYSICAL EXAMINATION BP 118/60 Pulse 89 Temp 36.6 C (97.8 F) Resp 18 Wt 112.9 kg (249 lb) SpO2 98% BMI 31.97kg/m GENERAL EXAM: General appearance: NAD, pleasant. HEENT: NC/AT, nasal congestion absent, no oral lesions, membranes moist. Mas II. NECK: ROM nml. Lungs: CTA bilaterally. CV: RRR nl S1, S2 Extr: No cyanosis, clubbing or edema. Skin: Cool to touch. NEUROLOGICAL EXAM: General: Awake, alert, oriented x3 (person,place,time), speech fluent, no dysarthria; comprehension, naming, repetition intact. CN: PERRL, EOMI and without nystagmus, VFF to confrontation, facial sensation and strength are normal and symmetric, hearing is intact to finger rub bilaterally, palate and tongue movements are intact and symmetric. SCM and trapezius strength normal. Motor: Normal tone, bulk and strength (5/5) bilaterally (throughout extremities x4). Coordination: FNF, EVELYN, HTS intact. No tremors. Sensation: Light touch intact throughout. No evidence of neglect. Gait: Stable with normal stride and arm swing. Assessment and Plan: ASSESSMENT/PLAN: 1. Obstructive sleep apnea (adult) (pediatric) - ICD9: 327.23, ICD10: G47.33 (primary diagnosis) Pt with PAP complaints as above. While AHI elevated in mild range on some nights, question if due to arousal driven events and whether pressure currently is too high given weight loss since last sleep study. Needs PAP titration to better determine pressure setting. Order placed and will start studyat 10 cmH2O. Again, new PAP device per pt (not recalled). Will adjust pressures based on results ofthe sleep study. In meantime encouraged PAP compliance and reminded to clean and replace equipment regularly. 2. Insomnia, unspecified type - ICD9: 780.52, ICD10: G47.00 On Doxepin as Rx'd by PCP. Today will focus on correcting PAP, as pressure may be contributing to sleep onset difficulties. Denies RLS. Does not provide history of racing thoughts. No specific pain at night. Does have known history of depression that may be contributing. For now can continue Doxepin but in future depending on response to possible PAP changes, may need referral to [facility]. Renny Yin MD I spent a total of 35 minutes on the date of the service which included preparing to see the patient, [id number] patient care, completing clinical documentation, obtaining and/or reviewing separately obtained history, performing a medically appropriate examination, counseling and educating the pat ient/family/caregiver, ordering medications, tests, or procedures, independently interpreting results (not separately reported) and communicating results to the patient/family/caregiver. documented in this encounterCorey [place]ille [id number] History of Present illness Narrative* Analy Monroy APRN.HAKAN - 07/08/2021 8:[address] Solares is requesting cardiology consult prior to urethroplasty on 07/16/2021 for abnormal EKG on 07/03/2021. Referral written. Shanthi Price has asked surgical schedulers to work on setting up appointment. Analy Monroy APRN.HAKAN documented [facility]05-[facility]22 Miscellaneous Notes* Telephone Encounter - Jessika Welsh Pss - 07/03/2021 9:44 AM EDT The patient is scheduled for an appointment 07/08/21. * Telephone Encounter - Patria Ochoa LPN - 06/19/2021 12:14 PM EDT Sulema from Dr Vargas office calling patient called her about having sleep study done in [place].Patient wants to keep Dr Yin as sleep Dr. Did find pap titration order from 08/2020, but was neversent anywhere. Sulema said have patient keep his appt in June with Dr Yin, so can have current office notes. Last office notes she has was from 2019. And if patient still wants to do the pap titration study in [place] let her know. * Telephone Encounter - Brigette Smith LPN - 06/18/2021 1:15 PM EDT Pt calls to report he was supposed to get a cpap titration test and was referred by Dr. Yin to Dr. Vargas because he wanted to do test in [place]. Pt reports when he tried to set up test pt reports he was told by the person he spoke to that he needed to change dr to Dr. Vargas. Pt reports he wants to keep Dr. Yin as his dr and just get test done at [place]. Please call pt to clear this up. Brigette Smith LPN documented in this encounterT[facility]05-04-2022 Instructions* Patient Instructions* Alpa Vergara APRN.BUSINESS OPERATIONS COORDINATOR - 07/03/2021 9:42 AM EDT PATIENT PREOPERATIVE INSTRUCTIONS Rainer Solares MD has scheduled you for your procedure at this surgery center: [facility] [place] [facility] Scheduling Office: [phone] --[address] [place] [address]. Please read below carefully for your personalized instructions. Dietary Restrictions: - No solid food after midnight. - You may have 12 ounces of clear liquids (water, clear juices such as apple juice or gatorade, carbonated beverages, clear tea, black coffee, jello) until 2 hours before scheduled arrival at facility. No red/purple coloring and no creamer/sugar Medications: Unless instructed differently below, stay on all of your medications until your surgery. Approved medications to take the morning of surgery with a sip of water: Albuterol, Duoneb, Atorvastatin, Levothyroxine Do not take Lisinopril day of surgery - No diabetic medication the morning of surgery. - Accucheck day of surgery. If you take any medications for erectile dysfunction-Cialis (Tadalafil), Levitra, Staxyn (Vardenafil) Viagra (Sildenenafil please do not take these for 48 hours before surgery. If you start any new medications after today's visit, please contact the surgeon's office. Blood Thinning Medications: - Stop NSAIDS (Ibuprofen, Advil, Aleve, Motrin, Celebrex, Mobic, etc.) 7 days before surgery, as directed by your surgeon. - Stop Aspirin 7 days before surgery, as directed by your surgeon. - Do NOT stop aspirin or other anticoagulants without consulting with your optics test technician or prescribing physician. - Stop Vitamin E, ALL multi-vitamins, herbals and dietary supplements 7 days before surgery. - You may take Tylenol (Acetaminophen) or any of your pain medications that do not contain aspirin or NSAIDS as needed. -For planned surgery, discussed that he will need to hold PM dose of Lovenox the night prior to surgery and AM dose on the day of surgery Important Reminders: - If you use CPAP/BIPAP, bring the machine with you to the surgery center. - If you are prescribed inhalers for breathing, continue using them. - Candy, mints, and tobacco products are NOT permitted the morning of surgery. - Hearing aids, dentures and glasses may be worn the morning of surgery. - NO jewelry, body piercings, makeup, hairpins or contacts are to be worn the day of surgery. If you develop symptoms such as a fever, cold, or flu, or have other changes to your health within TWO DAYS of scheduled surgery or the morning of surgery, please contact the surgery center above. Personal Belongings: -Please have photo ID and insurance cards. -If you do not have a copy of advance directives on file with us, please bring a copy with you on the day of surgery. - Leave ALL valuables and money at home or with family members. For Outpatient Procedures: - YOU MUST HAVE A RESPONSIBLE FOREST EXAMINER TAKE YOU HOME. A PARAMEDICAL AIDE OR SINKER WINDER CANNOT BE MADE A RESPONSIBLE FOREST EXAMINER. - We recommend that a responsible person stays with you overnight to take care of you. - You cannot stay in a hotel alone after outpatient surgery. You will not be permitted to have yoursurgery, if you do not have someone to take care of you. Arrival Time for Surgery: - To obtain your arrival time for surgery, call your physician's office the day before your surgery. - If your surgery is scheduled for Thursday, call the Thursday before. Your surgeon s master scheduler will tell you what time to call the office. - If you have not reached the departmental master scheduler by 5 P.M., call [phone] after 5 P.M. the day before your surgery. Please be aware that emergency situations arise, which may delay or change your surgical time. If this happens, we will notify you as soon as possible and regret any inconvenience. If you already have an Advance Directive, please fax a copy to [phone] or email to for it to be added to your chart. If you do not have an Advance Directive, you can find the appropriate form and more information at [email or web address]. We recommend that youcomplete the Advance Directive form found on the website and bring it with you the day of your surgery. It can be witnessed and scanned into your chart that day. Alpa Vergara APRN.CNP documented in this encounterT[facility]05-04-2022 History and physical note * Alpa Vergara APRN.CNP - 07/03/2021 9:33 AM EDT HISTORY AND PHYSICAL EXAMINATION SERVICE DATE: 07/03/2021 SERVICE TIME: 9:33 AM PRIMARY CARE PHYSICIAN: Julián Urias MD REASON FOR VISIT: Hal Blancas is a 51 year old male who is scheduled for Procedure(s): URETHROPLASTY ANTERIOR 1-STAGE PROCEDURE, ADULT MALE (N/A) GRAFT SKIN FULL THICKNESS, FREE, CHEEKS, CHIN, MOUTH, NECK FIRST 20 CM OR LESS (Pending) at the request of Dr. Rainer Solares for consultation. My final recommendation will be communicated back to the requesting physician by way of shared medical record or letter. Subjective The patient has the following: ACTIVE PROBLEM LIST DEPRESSION Chronic Interstitial Cystitis Obesity, Unspecified LUPUS ANTICOAGULANT History of Pulmonary Embolism Chromosomal Abnormality Left Hemiparesis (Hcc) Scrotal Pain Muscle Weakness (Generalized) Unspecified Disorder of Skin and Subcutaneous Tissue Polycythemia, Secondary Marc (Obstructive Sleep Apnea) Primary Testicular Hypogonadism Hematuria Low Back Pain Difficulty Voiding Urinary Retention Painful Urination Dysuria Vitamin D Deficiency Obesity Class 2 Obesity With Serious Comorbidity and Body Mass Index (Bmi) of 35.0 to 35.9 in Adult Prediabetes Obesity (Bmi 30-39.9) Post-Traumatic 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 Lupus Anticoagulant Disorder (Hcc) Personal History of Dvt (Deep Vein Thrombosis) Personal History of Pe (Pulmonary Embolism) Thrombocytopenia (Hcc) Splenomegaly Hepatic Steatosis Preoperative Examination History of Medication Noncompliance Diabetes Mellitus Type II (Hcc) Bronchitis, Mucopurulent Recurrent (Hcc) Hypothyroidism COVID-19 Immunization Status Overdue - COVID-19 VACCINE (3 - Booster for Pfizer series) Overdue since 05/19/2021 12/19/2020 Imm Admin: COVID-19 vaccine, age 12+ yr ([facility] - [facility]) 11/28/2020 Imm Admin: COVID-19 vaccine, age 12+ yr ([facility] - [facility]) CHIEF COMPLAINT: Pre-op exam HPI: DP is a 51 yo seen for PAC due to scheduled above surgery because of chronic IC/urinary retention. REVIEW OF SYSTEMS: General: No weight loss, malaise or fevers. Neurological: +intermittent left sided weakness, worked by neuro, etiology unknown. No history of TIA's, stroke, LATRINE CLEANER tumor, impaired sensorium, hemiplegia, paraplegia or quadraplegia. No neurologicalsymptoms or problems. Respiratory: +recurrent bronchitis Positive for: obstructive sleep apnea and CPAP/BiPAP compliant. Negative for: asthma, COPD, pneumonia within 6 weeks, tobacco use and URI < 2 weeks. Cardiovascular: Positive for: anticoagulation therapy and DVT/PE (IVC filter in place, follows Vascular) Negative for: arrhythmia, atrial fibrillation, CAD, chest pain, CHF, congenital heart defect, hyperlipidemia, hypertension, recent NH, murmur/valvular heart disease, open heart surgery and valve surgery. GI: Positive for: esophageal varices <6 months and liver disease (cirrhosis, enlarged liver, following gastro) Negative for: abdominal pain. : +SEE HPI Positive for: BPH. Endocrine: Positive for: diabetes mellitus and hypothyroidism (on rx). Patient's diabetes mellitus is controlled by oral agents. Hematology: +thrombocytopenia 2/2 splenomegaly 04/12/2021 Dr. Riggs, [facility] gastro ASSESSMENT: Splenomegaly (primary encounter diagnosis) Portal hypertension with esophageal varices (hcc) Thrombocytopenia (hcc) Left lower quadrant abdominal pain Elevated bilirubin Elevated alkaline phosphatase level The patient likely has decompensated cirrhosis secondary to [place] given his splenomegaly, thrombocytopenia, hepatomegaly, and the presence of varices on recent endoscopy. We will obtain imaging studies and blood work to work-up his cirrhosis. He might need to undergo transjugular biopsy with portal pressure if his blood work/imaging study did not confirm the diagnosis PLAN: -Check CBC, BMP, hepatic function panel, and INR to calculate his meld score -Check hepatitis panel, autoimmune panel, iron studies, AMA, alpha-1 antitrypsin, ceruloplasmin, and celiac panel to work-up other etiologies -Check ultrasound with elastography -Repeat EGD after 1 year -Check hepatitis A and hepatitis B status and immune if he is not vaccinated against both -Repeat colonoscopy after 5 years given history of tubular adenoma -Advised to lose weight (10% of current weight) Positive for: chronic anti-coagulation/platelet meds. Oncology: No history of CA metastasis, chemo within 30 days, or radiotherapy within 90 days. No history of oncological symptoms or problems. Psych: No history of psychiatric symptoms or problems. Musculoskeletal: Positive for: back pain. Skin: Negative for lesions, rash and itching. 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 Wong Hematuria work up in progress as of 09/24/04 Hepatomegaly Hypogonadism in male 2/2 orchiectomy for testicular pain Hypothyroidism Left-sided muscle weakness intermittent, has had extensive work up Obesity MARC (obstructive sleep apnea) Seeing Dr. Yin, using CPAP Osteopenia of neck of left femur 06/18/2020 PMH - PAST MEDICAL HISTORY OF scrotal swelling Pulmonary embolism (HCC) Retention of urine, unspecified Snoring Splenomegaly Thrombocytopenia (HCC) Urethral stricture 2020 Vitamin D deficiency PAST SURGICAL HISTORY Procedure Laterality Date COLONOSCOPY 2009 COLONOSCOPY FLX DX W/COLLJ SPEC WHEN PFRMD 03/13/2021 1 small polyp-repeat in 5 years ESOPHAGOGASTRODUODENOSCOPY TRANSORAL DIAGNOSTIC 03/13/2021 grade II esophageal varices EXPLORATORY LAPAROTOMY CELIOTOMY W/WO BIOPSY SPX 03/2005 Laparotomy, exp; incidental appendectomy IVC FILTER PERCUTANEOUS 06/2004 IVC FILTER SURGICAL LAPAROSCOPY SURG CHOLECYSTECTOMY 06/08/2014 PAST SURGICAL HISTORY OF 1975 finger rt hand table saw dipj PAST SURGICAL HISTORY OF 11/2005 Bladder pacemaker PAST SURGICAL HISTORY OF Bilateral bilateral achilles repair PAST SURGICAL HISTORY OF 2006, 2007 bilateral orchiectomy, secondary to pain PAST SURGICAL HISTORY OF 2020 placement of suprapubic catheter FAMILY HISTORY Problem Relation Age of Onset Diabetes Father unsure of how old Coronary Artery Disease Father Colon Cancer Mother other (Trisomy 22) Son other (Trisomy 22) Daughter Diabetes Sister other (sleep apnea) Sister Diabetes Sister other (sleep apnea) Sister Social History Tobacco Use Smoking status: Former Smoker Packs/day: 2.00 Years: 2.00 Pack years: 4.00 Types: Cigarettes Quit date: 07/04/1987 Years since quittin.0 Smokeless tobacco: Never Used Vaping Use Vaping Use: Never used Substance Use Topics Alcohol use: Yes Comment: occasional- less than 1 drink per week Drug use: No Prior to Admission medications as of 07/03/21 0924 Medication Sig Last Dose Taking doxepin capsule 10 mg Take 1 capsule by mouth daily at bedtime. Taking Yes ACCU-CHEK GUIDE ME GLUCOSE MTR USE TO TEST BLOOD SUGAR Taking Yes testosterone enanthate (DELATESTRYL) 200 mg/mL injection Taking Yes levothyroxine (SYNTHROID) 100 mcg tablet Take 100 mcg by mouth once daily. Taking Yes blood sugar diagnostic (BLOOD GLUCOSE TEST) test strip Test blood sugar(s) 1 times daily. Dx: Type 2 DM - Controlled E11.9 Insulin: No Taking Yes Lancets lancets Test blood sugar(s) 1 times daily. Dx: Type 2 DM - Controlled E11.9 Insulin: No Taking Yes lisinopril (ZESTRIL, PRINIVIL) 5 mg tablet Take 1 tablet by mouth once daily. Taking Yes atorvastatin (LIPITOR) 10 mg tablet Take 1 tablet by mouth daily at bedtime. For cholesterol. Taking Yes enoxaparin (LOVENOX) 120 mg/0.8 mL injection Inject 0.7 mL subcutaneously every 12 hours. Taking Yes metFORMIN (GLUCOPHAGE) 500 mg tablet Take 1 tablet by mouth twice daily with meals. . Patient taking differently: Take 500 mg by mouth twice daily with meals. Two tabs twice daily with meals Taking Differently Yes CPAP Patient would like to change DME closer to home. Needs mask and supplies. Current PAP device only 3 months old. Need download from device. Lifetime supplies. Taking Yes Irrigation Set irst 1 kit to flush SPT as needed Taking Yes Syringe Disposable, Irrigation (IRRIGATION SYRINGE) syrg Use to flush SPT with Irrigation fluid Taking Yes sodium chloride 0.9 % IRRIGATION Use irrigation solution to flush SPT Taking Yes ipratropium-albuterol (DUONEB) 0.5 mg-3 mg(2.5 mg base)/3 mL nebu Inhale 3 mL as instructed every 4hours as needed (wheezing). Use over 5-15minutes per nebulizer. Taking Yes cholecalciferol, Vitamin D3, (VITAMIN D3) 1,250 mcg (50,000 unit) cap capsule Take 1 capsule by mouth one time a week. Taking Yes Syringe with Needle, Disp, 3 mL 22 gauge x 1 syrg Use as directed to inject testosterone once a month Taking Yes COMPOUNDED PRESCRIPTION Night bag for Baum catheter Taking Yes Urinary Bag (URINARY LEG BAG) Misc Misc Use as needed Taking Yes Catheter (BARD COUDE TIP CATHETER) 16 Fr Misc Misc to be used as needed Taking Yes ALBUTEROL 90 MCG/ACTUATION AEROSOL INHALER Inhale two(2) puffs four(4) times a day for wheezing andshortness of breath. Taking Yes No medication comments found. ALLERGIES Allergen Reactions Piperacillin Rash Vancocin [Vancomyci* Rash Latex Rash Sodium Hypochlorite* Rash Objective PHYSICAL EXAM: General: alert and oriented (x3), healthy appearance and obese. Pertinent negatives noted - not distressed. Skin: normal color, no rash or lesions. HEENT: EOM intact and pupils equal round. Pertinent negatives noted - no carotid bruit. Cardiovascular: regular rate and rhythm, normal S1 and S2, no rub, murmurs, or gallop. Respiratory: normal breath sounds, no wheezes or crackles. No chest wall deformity or tenderness. Abdomen: soft. Pertinent negatives noted - not tender. Extremities: no deformity, no edema or tenderness, no joint swelling or clubbing. Neurological: normal cognition and motor skills. Gait normal. No weakness or sensory deficit. PAIN ASSESSMENT: Pain Pain Level: 7 Duration Amount of Time: 1 Duration Units: Days Frequency: Intermittent VITALS: BP 122/72 Pulse 88 Temp (Src) 96.9 (Temporal) Resp 16 Ht 6' 2 (1.88m) Wt 248 lb (112.5kg) SpO2 98% BMI 31.83 kg/(m^2). Diagnostic tests reviewed for today's visit: Lab Value Units Date High Low HB 14.8 g/dL 07/02/2021 17.0 13.0 HB 14.3 g/dL 04/03/2021 17.0 13.0 HCT 40.9 % 07/02/2021 51.0 39.0 HCT 40.6 % 04/03/2021 51.0 39.0 WBC 3.28 k/uL 07/02/2021 11.00 3.70 WBC 2.71 k/uL 04/03/2021 11.00 3.70 PLT 53 k/uL 07/02/2021 400 150 PLT 62 k/uL 04/03/2021 400 150 NA 136 mmol/L 07/02/2021 144 136 NA 134 mmol/L 02/12/2021 144 136 K 4.1 mmol/L 07/02/2021 5.1 3.7 K 4.6 mmol/L 02/12/2021 5.1 3.7 GLUC 147 mg/dL 07/02/2021 99 74 GLUC 181 mg/dL 02/12/2021 99 74 BUN 17 mg/dL 07/02/2021 24 9 BUN 11 mg/dL 02/12/2021 24 9 CREAT 0.72 mg/dL 07/02/2021 1.22 0.73 CREAT 0.74 mg/dL 02/12/2021 1.22 0.73 PTSEC No results within date range. INR No results within date range. APTT No results within date range. ALT 40 U/L 07/02/2021 54 10 ALT 25 U/L 02/12/2021 54 10 AST 39 U/L 07/02/2021 40 14 AST 29 U/L 02/12/2021 40 14 TBILI 1.9 mg/dL 07/02/2021 1.3 0.2 TBILI 1.3 mg/dL 02/12/2021 1.3 0.2 TSH 0.718 mIU/L 05/17/2021 4.200 0.270 Lab Value Units Date High Low HCGQT No results within date range. UHCG No results within date range. HCG, BODY* No results within date range. Lab Value Units Date High Low ABORHD No results within date range. ABSCREEN No results within date range. Hemoglobin A1C (%) Date Value 07/02/2021 5.2 02/12/2021 6.9 07/31/2020 7.3 03/16/2019 6.0 04/30/2017 5.2 07/29/2007 4.7 Hemoglobin A1C (POCT) (%) Date Value 06/02/2018 5.8 No results found for this or any previous visit (from the past 8760 hour(s)). No results found for this or any previous visit (from the past 24510 hour(s)). Assessment Personal history of DVT (deep vein thrombosis) Assessment: -For planned surgery, discussed that he will need to hold PM dose of Lovenox the night prior to surgery and AM dose on the day of surgery -Recommend aggressive pharmacomechanical VTE prophylaxis post-operatively including: _Lovenox 40 mg daily or heparin 5000 units TID when safe from a surgical perspective _IPCs, Yanna hose/compression socks _Early ambulation, PT/OT _Adequate diet and hydration -Ultimately plan to resume full therapeutic anticoagulation when safe from a surgical perspective; consult service available to assist Kerrie Smith DO Splenomegaly Assessment: following gastro and hematology, last OV 04/12/2021 with gastro Pt has declined splenectomy, therefore thrombocytopenia still present Platelet Count Date Value Ref Range Status 07/02/2021 53 (L) 150 - 400 k/uL Final Comment: No clot detected History of pulmonary embolism Assessment: anticoagulated on Lovenox, follows vascular, received AC instructions Polycythemia, secondary Assessment: hx CBC with diff: WBC 3.28 07/02/2021 RBC 4.61 07/02/2021 Hemoglobin 14.8 07/02/2021 Hematocrit 40.9 07/02/2021 MCV 88.7 07/02/2021 MCH 32.1 07/02/2021 MCHC 36.2 07/02/2021 RDW-CV 15.4 07/02/2021 Platelet Count 53 07/02/2021 MPV 8.9 07/02/2021 Neut% 52.7 07/02/2021 Lymph% 30.8 07/02/2021 [place]% 9.5 07/02/2021 Eosin% 4.4 04/03/2021 Baso% 0.6 07/02/2021 Abs Neut (ANC) 1.73 07/02/2021 Abs [place] 0.31 07/02/2021 Abs Eosin 0.21 07/02/2021 Abs Baso <0.03 07/02/2021 Left hemiparesis (HCC) Assessment: while hospitalized for PE and then again during filter procedure, chronic left side weakness this is mild/intermittent Patient noted unknown etiology and was worked up by neurology in the past MARC (obstructive sleep apnea) Assessment: c/w CPAP 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, 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 Chronic interstitial cystitis Assessment: s/p suprapubic catheter, following urology Bronchitis, mucopurulent recurrent (HCC) Assessment: no recent episodes, rx as needed Diabetes mellitus type II (HCC) Assessment: controlled on oral agent Hemoglobin A1C (%) Date Value 07/02/2021 5.2 02/12/2021 6.9 Hepatic steatosis Assessment: US from 03/2019 Albumin (g/dL) Date Value 07/02/2021 4.2 Bilirubin, Total (mg/dL) Date Value 07/02/2021 1.9 (H) Bilirubin, Conjug (mg/dL) Date Value 01/11/2021 0.3 (H) Alkaline Phosphatase (U/L) Date Value 07/02/2021 98 AST (U/L) Date Value 07/02/2021 39 ALT (U/L) Date Value 07/02/2021 40 Protein, Total (g/dL) Date Value 07/02/2021 6.6 Hypothyroidism Assessment: stable on rx Lupus anticoagulant disorder (HCC) Assessment: hx DVT/PE, following [facility] hematology and vascular, receiving Lovenox, has instructions for surgery Obesity (BMI 30-39.9) Assessment: Body mass index is 31.84 kg/m . Thrombocytopenia (HCC) Assessment: secondary to splenomegaly Platelet Count Date Value Ref Range Status 07/02/2021 53 (L) 150 - 400 k/uL Final Comment: No clot detected Primary testicular hypogonadism Assessment: s/p bilateral orchiectomy 2006, managed with testosterone injections METS: Climb a flight of stairs or walk up a hill (5.50 METs) DASI Score: 5.5; Patient denies any chest pain or undue shortness of breath with the above physicalactivity. Clinical Frailty Scale: 3. Well, with treated comorbid disease ASA Class: 3 ANESTHESIA FINDINGS: Intubation History: No history of difficult intubation Significant Anesthesia Considerations: none Airway History: No history of difficult airway [id number] Score: Age: <65 Sex: Male CHF history: No Hypertension history: No Stroke/TIA/thromboembolism history: Yes Vascular disease history: No Diabetes history: Yes Score: 3 I - PHYSICAL EVALUATION AIRWAY Tracheostomy tube not present Mallampati: II. TM distance: >3 FB. Neck ROM: full ROM without neurological symptoms. Mouth opening: adequate. Short neck: no. Thick neck: yes DENTAL Dentures, upper: complete. II - ANESTHESIA PLAN ASA Score: 3 Anesthetic Plan: other Anesthetic plan additional comments: *PACC/TCI - anesthesia choice. Informed Consent Anesthetic risks, benefits, alternatives, personnel and consent discussed: yes. Patient / Responsible Alliance Party agrees to proceed: yes Patient / Surrogate agrees to blood products: blood products not planned Prepared for Surgery: optimally prepared for surgery. CONSULTS: Patient does not require consults for optimization at this time The Following Tests/Procedures Have Been Initiated: No orders of the defined types were placed in this encounter. Planned Anesthetic: other anesthesia choice Instructions Given to Patient: Instructions located in the after visit summary. Patient given verbal and written preop instructions and voices comprehension and compliance. SIGNATURE: Alpa Vergara APRN.CNP PATIENT NAME: Hal Blancas DATE: July 03, 2021 TIME: 9:33 AM PAGER/CONTACT #: [facility] History of Present illness Narrative* Analy Monroy APRN.CNP - 07/02/2021 9:48 AM EDT Received call from Michelle that Hal Blancas is at lab and orders have not been signed. Signed orders pended on 06/18/2021 for urethroplasty on 07/16/2021. Analy Monroy APRN.CNP documented [facility]04-19-[facility]22 Miscellaneous Notes* Telephone Encounter - Rainer Solares MD - 06/18/2021 2:14 PM EDT Called and discussed with him. I saw the notes from asya onc and DANA re: his APL and risks. He wouldneed to be in lithotomy position for both procedures offered. Disc both. The first is reconstruction with oral graft, would be 4-6 hours in lithotomy. The second is perineal urethrostomy- about 1-2 hin lithotomy. Explained the differences with respect to risk of PE and DVT, both of which he's had before, and the implications of needing to start AC and postop bleeding. Also reviewed periop expectations and limitations. He chose urethroplasty and we selected date. Consent placed in Epic. Will proceed with scheduling. HW documented [facility]04-14-2022 Miscellaneous Notes* Telephone Encounter - Anika Woody LPN - 06/13/2021 2:00 PM EDT Please see Dr. Smith's note from yesterday as well as 9You message for Dr. Solares. Anika Woody LPN documented in [facility]04-12-2022 History of Present illness Narrative* Kerrie Smith DO - 06/11/2021 1:46 PM EDT Images from the original note were not included. [facility] Department of Cardiovascular Medicine VIRTUAL VIDEO VISIT ESTABLISHED OUTPATIENT VISIT Nurse intake Pre-visit questions Check off list Chief complaint confirmed and entered into Canary: yes Medication list reviewed and updated: yes Pharmacy confirmed: yes Allergies reviewed and updated: ys Past medical and surgical history reviewed and updated: no Patient reminded to prepare to show any areas of concern and pertinent to visit: no Reason for visit: Pre Op Clearance Hal Blancas has a hx of DVT, PE, and APLS. He would like to get ureter reconstructions surgery -no date set. He is on lovenox. Visit type (virtual vs. telephone vs. Duo, etc.): virtual Phone number to call if telephone or Duo call: n/a Pre-visit conducted by: Jasmyn Gant RN SERVICE DATE: 06/11/2021 Patient: Hal Blancas SERVICE TIME: 11:40 AM : 1970 This is a virtual video visit. It required patient-provider interaction for the medical decision making as documented below. Hal Marcus Blancas has consented to this video encounter. [facility] Department of Cardiovascular Medicine SECTION OF VASCULAR MEDICINE OUTPATIENT VISIT DATE June 12, 2021 OUTPATIENT VISIT TYPE ESTABLISHED Follow up regarding: APS, pre-op recommendations Review of history: Per last note dated 03/09/19: 48 year old man with PMH of antiphospholipid antibody syndrome and prior VTE, chronic thrombocytopenia (?secondary to splenomegaly), obesity (BMI 35), MARC on CPAP (resolved secondary erythrocytosis), prior tobacco abuse, degenerative spinal arthritis,bilateral orchiectomy with resultant hypogonadism, urological issues (s/p bladder stimulator, urethral stricture s/p prior dilation procedure, indwelling catheter -- planned for possible repair). Referred to for perioperative anticoagulation recommendations prior to planned urologic procedure. Review of VTE history: first event was left peroneal calf DVT in 2003, provoked in the setting of leg cast for Achilles tendon injury. He apparently underwent thrombophilia testing at that time whichrevealed persistently positive anticardiolipin antibodies (IgG > 60, IgM borderline). He also had a positive B2GP IgM (38) and positive lupus anticoagulant in 2004. LAC was never repeated and aCL/B2GP antibodies waxed and waned on draws between 8560-3018. 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 Infrarenal IVC filter was placed in 2004 for unclear reason (?pre-op) - remains in place on most recent imaging in 2006. He reports two subsequent episodes of unprovoked PE in the interim (last event 3-4 years ago). Unclear if event were related to interruptions in therapy - he thinks he may have had bronchitis/pneumonia at time of events. LLE PE noted on OSH CT scan per review of Epic records. Per review of hematology notes, at least one event was in the setting of self discontinuation of Lovenox. He was following with hematology at [place] from [id number] Wong) for APS, anticoagulation management, and thrombocytopenia. Subsequent BMBx was normal. Liver imaging showed steatosis with normal vascular flow. Splenomegaly with colloid shift noted. Per patient there was discussion of splenectomy, but this was deferred in the absence of symptoms. Follow up imaging advised in 6-12 months (not done). He was advised to resume Lovenox, but has not restarted medication or followed up since that time. No internal VTE events. Denies CP/SOB/palpitations/leg swelling. 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 LAC postive B2GP IgG positive Subjective: Presenting today for follow up. No interval vascular events. He denies any episodes of recurrent VTE. No new family history of VTE. Since last visit, he was resumed on Lovenox. Currently taking Lovenox 105 mg BID (weight 245 lbs). No bleeding or bruising side effects despite low platelet counts (this has been stable in the 60-90Krange). He continues to follow regularly with hematology. Splenomegaly is being monitored and was unchangedin size on last CT 12/2020 (20 cm).. He underwent EGD/colonoscopy 03/2021 which revealed Grade II EV and one polyp (removed). He reports EVs will be monitored, no plans for banding at this time. He is established with GI and being workedup for BANEGAS cirrhosis (plans for possible liver biopsy noted). He is still panned for urological surgery with Dr. Solares at [facility]. He notes he will be admitted for 2-4 days after surgery. He has never had major bleeding complications after surgeries in the past. Referred back to for pre-op clearance due to above medical issues (seen for the same 03/2019). Allergies: is allergic to piperacillin, vancocin [vancomycin], latex, and sodium hypochlorite solution. Medications: Current Outpatient Medications Medication Sig ALBUTEROL 90 MCG/ACTUATION AEROSOL INHALER Inhale two(2) puffs four(4) times a day for wheezing andshortness of breath. doxepin capsule 10 mg Take 1 capsule by mouth daily at bedtime. ACCU-CHEK GUIDE ME GLUCOSE MTR USE TO TEST BLOOD SUGAR testosterone enanthate (DELATESTRYL) 200 mg/mL injection levothyroxine (SYNTHROID) 100 mcg tablet Take 100 mcg by mouth once daily. blood sugar diagnostic (BLOOD GLUCOSE TEST) test strip Test blood sugar(s) 1 times daily. Dx: Type 2 DM - Controlled E11.9 Insulin: No Lancets lancets Test blood sugar(s) 1 times daily. Dx: Type 2 DM - Controlled E11.9 Insulin: No lisinopril (ZESTRIL, PRINIVIL) 5 mg tablet Take 1 tablet by mouth once daily. atorvastatin (LIPITOR) 10 mg tablet Take 1 tablet by mouth daily at bedtime. For cholesterol. enoxaparin (LOVENOX) 120 mg/0.8 mL injection Inject 0.7 mL subcutaneously every 12 hours. metFORMIN (GLUCOPHAGE) 500 mg tablet Take 1 tablet by mouth twice daily with meals. . CPAP Patient would like to change DME closer to home. Needs mask and supplies. Current PAP device only 3 months old. Need download from device. Lifetime supplies. Irrigation Set irst 1 kit to flush SPT as needed Syringe Disposable, Irrigation (IRRIGATION SYRINGE) syrg Use to flush SPT with Irrigation fluid sodium chloride 0.9 % IRRIGATION Use irrigation solution to flush SPT ipratropium-albuterol (DUONEB) 0.5 mg-3 mg(2.5 mg base)/3 mL nebu Inhale 3 mL as instructed every 4hours as needed (wheezing). Use over 5-15minutes per nebulizer. cholecalciferol, Vitamin D3, (VITAMIN D3) 1,250 mcg (50,000 unit) cap capsule Take 1 capsule by mouth one time a week. Syringe with Needle, Disp, 3 mL 22 gauge x 1 syrg Use as directed to inject testosterone once a month COMPOUNDED PRESCRIPTION Night bag for Baum catheter Urinary Bag (URINARY LEG BAG) Misc Misc Use as needed Catheter (BARD COUDE TIP CATHETER) 16 Fr Misc Misc to be used as needed No current facility-administered medications for this visit. Physical exam: This visit was conducted as a virtual visit. Imaging As above Labs Component Latest Ref Rng & Units 05/17/2021 06/04/2021 WBC 3.70 - 11.00 k/uL 3.23 (L) RBC 4.20 - 6.00 m/uL 4.52 Hemoglobin 13.0 - 17.0 g/dL 14.6 Hematocrit 39.0 - 51.0 % 39.4 MCV 80.0 - 100.0 fL 87.2 MCH 26.0 - 34.0 pg 32.3 MCHC 30.5 - 36.0 g/dL 37.1 (H) RDW-CV 11.5 - 15.0 % 15.8 (H) Platelet Count 150 - 400 k/uL 65 (L) MPV 9.0 - 12.7 fL 8.9 (L) Neut% % 56.6 Abs Neut (ANC) 1.45 - 7.50 k/uL 1.83 Lymph% % 28.5 Abs Lymph 1.00 - 4.00 k/uL 0.92 (L) [place]% % 8.7 Abs [place] <0.87 k/uL 0.28 Eosin% % 5.6 Abs Eosin <0.46 k/uL 0.18 Baso% % 0.6 Abs Baso <0.11 k/uL <0.03 Immature Gran % % 0.0 IMMATURE GRANS (ABS) <0.10 k/uL <0.03 NRBC /100 WBC 0.0 Absolute nRBC <0.01 k/uL <0.01 DTYPE Auto Protein, Total 6.3 - 8.0 g/dL 5.9 (L) Albumin 3.9 - 4.9 g/dL 3.8 (L) Calcium 8.5 - 10.2 mg/dL 9.1 Bilirubin, Total 0.2 - 1.3 mg/dL 1.4 (H) Alkaline Phosphatase 38 - 113 U/L 103 AST 14 - 40 U/L 27 ALT 10 - 54 U/L 26 Glucose 74 - 99 mg/dL 191 (H) BUN 9 - 24 mg/dL 13 Creatinine 0.73 - 1.22 mg/dL 0.70 (L) Sodium 136 - 144 mmol/L 136 Potassium 3.7 - 5.1 mmol/L 4.0 Chloride 97 - 105 mmol/L 104 CO2 22 - 30 mmol/L 23 Anion Gap 9 - 18 mmol/L 9 eGFR >=60 mL/min/1.73m 112 Component Latest Ref Rng & Units 07/18/2004 09/24/2004 04/01/2006 07/02/2006 04/20/2007 03/09/2019 01/31/2020 02/13/2020 PT Sec 9.7 - 13.0 sec 28.1 (A) 12.0 11.8 12.0 PT INR 0.9 - 1.3 2.5 (A) 1.3 (H) 1.1 1.1 APTT 23.0 - 32.4 sec 39.6 (A) 51.6 (H) 25.8 25.6 Platelet Neut Negative Positive (A) The heparin level was too high to use a heparin removal technique. A lupus (A) Negative Negative DRVVT Screen 32.0 - 45.7 sec 91.7 (A) The heparin level was too high to use a heparin removal technique. A lupus 55.4 (H) 51.0 (H) DRVVT Confirm Ratio <1.32 1.76 (A) The heparin level was too high to use a heparin removal technique. A lupus 1.45 (H) 1.36 (H) DRVVT 1:1 Mix 32.0 - 45.7 sec 37.7 (A) The heparin level was too high to use a heparin removal technique. A lupus 47.3 (H) 44.2 Hex Phase Screen 46.2 - 57.4 sec 74.3 (A) The heparin level was too high to use a heparin removal technique. A lupus 58.8 58.1 (H) Hex Phase Confirm 43.0 - 52.3 sec 82.0 (A) The heparin level was too high to use a heparin removal technique. A lupus 49.9 49.6 Hex Phase Delta <11.1 sec 0.0 The heparin level was too high to use a heparin removal technique.A lupus 8.8 8.5 APTT Screen 24.0 - 35.1 sec 31.7 29.3 Immediate PTT 1:1 Mix <33.2 sec 31.2 Incubated PTT 1:1 Mix <35.0 sec 32.6 Thrombin Time <18.6 sec 15.7 <16.8 Anti Xa Inhib Assay Anti Xa activity was not detected. Interpretation(Lupus Anticoagulant) Laboratory testing was performed to evaluate the presence of a lupus Abnormal. See comment below. 1. Lupus anticoagulant: POSITIVE 2. IgG Beta-2 Glycoprotein I antibody titer: POSITIVE 1. Lupus anticoagulant: POSITIVE 2. IgG Beta-2 Glycoprotein I antibody titer: POSITIVE Cardiolipin Ab, IgG <15.0 GPL 63 (A) 65 (A) 27 (H) 36 (H) 33.9 (H) Cardiolipin Ab, IgM <12.5 MPL 37 (A) 17 (A) 18 (H) 26 (H) 40.6 (H) Cardiolipin Ab, IgA <12.0 APL <9 <9 <9 <9 <9.0 Beta 2 Glycoprotein, IgG <20 SGU 12 <9 41 (H) 26 (H) Beta 2 Glycoprotein, IgM <20 SMU 38 (A) 19 17 29 (H) Circ Anticoagulant NEG No circulating anticoagulant identified. The heparin level was too high to use a heparin removal technique. A lupus (A) Protein, Total 6.0 - 8.4 g/dL 7.5 Albumin 3.80 - 5.00 gm/dL 5.03 (H) Alpha 1 Globulin 0.11 - 0.22 gm/dL 0.20 Alpha 2 Globulin 0.50 - 1.00 gm/dL 0.72 Beta Globulin 0.50 - 1.00 gm/dL 0.78 Gamma Globulin 0.60 - 1.35 gm/dL 0.77 Interpretation (Prot Electro) No definitive M-protein is identified on protein electrophoresis. Factor V Leiden, PCR Normal Factor V Leiden PCR Report The patient is negative for the Factor V Leiden, the Arginine 506/Glutamine PT Gene Mut Result Normal PT Gene Report The DNA sample is negative for the [id number] point mutation in the 3' JAK2 Mutation Result Negative for the JAK2 Mutation JAK2 Mutation Interp The specimen was negative for the JAK2 [id number] point mutation. Patient genomic Homocysteine, Plasma 6.4 - 13.7 umol/L 11.3 Factor VIII:C Assay 50 - 173 % 117 PSA 0.00 - 2.59 ng/mL <0.03 Impression 50 year old man with PMH of antiphospholipid antibody syndrome and prior recurrent VTE, chronic splenomegaly, thrombocytopenia, and esophageal varices (currently being worked up for BANEGAS cirrhosis), resolved (?)secondary erythrocytosis (prior JANETTE-2 negative, BMBx negative), MARC on CPAP, obesity, chaparrita or tobacco abuse, degenerative spinal arthritis, bilateral orchiectomy with resultant hypogonadism,urological issues (s/p bladder stimulator, urethral stricture s/p prior dilation procedure, indwelling catheter -- planned for possible repair). Referred to for perioperative anticoagulation recomm endations prior to planned urologic procedure. Initially seen 03/2019; now referred back (surgery delayed due to COVID). Review of VTE history: first event was left peroneal calf DVT in 2003, provoked in the setting of leg cast for Achilles tendon injury. He underwent thrombophilia testing in 2004 which revealed persistently positive anticardiolipin antibodies (IgG > 60, IgM equivocal), positive B2GP IgM (38), andpositive lupus anticoagulant. aCL/B2GP antibodies waxed and waned on draws between 0346-4025. LAC was positive again 03/2019, but indeterminate 01/2020. 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 Infrarenal IVC filter was placed in 2004 for unclear reason (?pre-op, hematuria) - remains in placeon most recent imaging in 12/2020 (appears to be a trapease filter) He also reported two subsequent episodes of unprovoked PE in the past (unclear if event were related to interruptions in therapy). Presenting today for follow up. No interval vascular events. He denies any episodes of recurrent VTE. No new family history of VTE. Since last visit, he was resumed on Lovenox. Currently taking Lovenox 105 mg BID (weight 245 lbs). No bleeding or bruising side effects despite low platelet counts (this has been stable in the 60-90Krange). He continues to follow regularly with hematology. Splenomegaly is being monitored and was unchangedin size on last CT 12/2020. He underwent EGD/colonoscopy 03/2021 which revealed Grade II EV and one polyp (removed). He reports EVs will be monitored, no plans for banding at this time. He is established with GI and being workedup for BANEGAS cirrhosis (plans for possible liver biopsy noted). He is still panned for urological surgery with Dr. Solares at [facility]. He notes he will be admitted for 2-4 days after surgery. He has never had major bleeding complications after surgeries in the past. Plan: 1) APS with history of recurrent VTE 2) Chronic indwelling trapease IVC filter in place 3) Thrombocytopenia (?secondary to hypersplenism versus BANEGAS cirrhosis), Grade II EV _Following with hematology and GI -Continue Lovenox 1 mg/kg BID _Monitor blood counts and for signs of bleeding _May need to hold if PLT counts < 50K _Will need surveillance EGDs to reassess EVs for need for banding _Monitor weight and kidney/liver function _Duration of therapy: likely commercial loan processor for APS, recurrent VTE -For planned surgery, discussed that he will need to hold PM dose of Lovenox the night prior to surgery and AM dose on the day of surgery -Recommend aggressive pharmacomechanical VTE prophylaxis post-operatively including: _Lovenox 40 mg daily or heparin 5000 units TID when safe from a surgical perspective _IPCs, Yanna hose/compression socks _Early ambulation, PT/OT _Adequate diet and hydration -Ultimately plan to resume full therapeutic anticoagulation when safe from a surgical perspective; consult service available to assist Kerrie Smith DO [facility] Miscellaneous Notes* Telephone Encounter - Dexter Wong DO - 06/04/2021 9:54 AM EDT Order filed. Dexter Wong DO * Telephone Encounter - Miri Wan LPN - 06/04/2021 9:45 AM EDT please file monthly standing CBC to monitor platelets per last OV. Miri Wan LPN [facility] History of Past illness Narrative* Problem Noted Date Resolved Date Essential hypertension 12/26/2021 2 Prediabetes 07/30/2018 12/25/2021 Last Assessment & Plan: Assessment: diet controlled, A1c 6.0 03/2018. Pt denies this dx. Cholecystitis with cholelithiasis 06/08/2014 04/10/2016 Low back pain 05/19/2011 07/15/2021 Cholelithiasis 05/09/2010 04/10/2016 Overview: Incidental CT finding 2009 Muscle weakness (generalized) 01/10/2010 Other specified disorder of male genital organs( 608.89) 10/23/2006 04/26/2009 Hematuria 04/01/2006 04/26/2009 Open wound of foot except toe(s) alone, complica yanna 03/05/2006 02/02/2009 Urinary frequency 09/04/2005 04/26/2009 ASA CLASS III 07/09/2005 04/26/2009 PNEUMATURIA 03/20/2005 02/02/2009 FISTULA ENTEROVESICAL 03/14/2005 02/02/2009 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/2005 04/26/2009 Phlebitis and thrombophlebitis of unspecified si te 09/25/2004 04/26/2009 Achilles bursitis or tendinitis 05/07/2004 04/26/2009 Bronchitis, mucopurulent recurrent 07/15/2021 Last Assessment & Plan: Assessment: no recent episodes, rx as needed documented as of this encounter (statuses as of 12/26/2021) [facility] of [facility] illness Narrative* Problem Noted Date Resolved Date Cholecystitis with cholelithiasis 06/08/2014 04/10/2016 Cholelithiasis 05/09/2010 04/10/2016 Overview: Incidental CT finding 2009 Other specified disorder of male genital organs( 608.89) 10/23/2006 04/26/2009 Hematuria 04/01/2006 04/26/2009 Open wound of foot except toe(s) alone, complica yanna 03/05/2006 02/02/2009 Urinary frequency 09/04/2005 04/26/2009 ASA CLASS III 07/09/2005 04/26/2009 PNEUMATURIA 03/20/2005 02/02/2009 FISTULA ENTEROVESICAL 03/14/2005 02/02/2009 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/2005 04/26/2009 Phlebitis and thrombophlebitis of unspecified si te 09/25/2004 04/26/2009 Achilles bursitis or tendinitis 05/07/2004 04/26/2009 documented as of this encounter (statuses as of 06/04/2021) [facility] Narrative* Problem Noted Date Resolved Date Cholecystitis with cholelithiasis 06/08/2014 04/10/2016 Cholelithiasis 05/09/2010 04/10/2016 Overview: Incidental CT finding 2009 Other specified disorder of male genital organs( 608.89) 10/23/2006 04/26/2009 Hematuria 04/01/2006 04/26/2009 Open wound of foot except toe(s) alone, complica yanna 03/05/2006 02/02/2009 Urinary frequency 09/04/2005 04/26/2009 ASA CLASS III 07/09/2005 04/26/2009 PNEUMATURIA 03/20/2005 02/02/2009 FISTULA ENTEROVESICAL 03/14/2005 02/02/2009 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/2005 04/26/2009 Phlebitis and thrombophlebitis of unspecified si te 09/25/2004 04/26/2009 Achilles bursitis or tendinitis 05/07/2004 04/26/2009 documented as of this encounter (statuses as of 06/13/2021) [facility] Narrative* Problem Noted Date Resolved Date Cholecystitis with cholelithiasis 06/08/2014 04/10/2016 Cholelithiasis 05/09/2010 04/10/2016 Overview: Incidental CT finding 2009 Other specified disorder of male genital organs( 608.89) 10/23/2006 04/26/2009 Hematuria 04/01/2006 04/26/2009 Open wound of foot except toe(s) alone, complica yanna 03/05/2006 02/02/2009 Urinary frequency 09/04/2005 04/26/2009 ASA CLASS III 07/09/2005 04/26/2009 PNEUMATURIA 03/20/2005 02/02/2009 FISTULA ENTEROVESICAL 03/14/2005 02/02/2009 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/2005 04/26/2009 Phlebitis and thrombophlebitis of unspecified si te 09/25/2004 04/26/2009 Achilles bursitis or tendinitis 05/07/2004 04/26/2009 documented as of this encounter (statuses as of 06/17/2021) [facility] Narrative* Problem Noted Date Resolved Date Cholecystitis with cholelithiasis 06/08/2014 04/10/2016 Cholelithiasis 05/09/2010 04/10/2016 Overview: Incidental CT finding 2009 Other specified disorder of male genital organs( 608.89) 10/23/2006 04/26/2009 Hematuria 04/01/2006 04/26/2009 Open wound of foot except toe(s) alone, complica yanna 03/05/2006 02/02/2009 Urinary frequency 09/04/2005 04/26/2009 ASA CLASS III 07/09/2005 04/26/2009 PNEUMATURIA 03/20/2005 02/02/2009 FISTULA ENTEROVESICAL 03/14/2005 02/02/2009 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/2005 04/26/2009 Phlebitis and thrombophlebitis of unspecified si te 09/25/2004 04/26/2009 Achilles bursitis or tendinitis 05/07/2004 04/26/2009 documented as of this encounter (statuses as of 06/19/2021) [facility]ative* Problem Noted Date Resolved Date Cholecystitis with cholelithiasis 06/08/2014 04/10/2016 Cholelithiasis 05/09/2010 04/10/2016 Overview: Incidental CT finding 2009 Other specified disorder of male genital organs( 608.89) 10/23/2006 04/26/2009 Hematuria 04/01/2006 04/26/2009 Open wound of foot except toe(s) alone, complica yanna 03/05/2006 02/02/2009 Urinary frequency 09/04/2005 04/26/2009 ASA CLASS III 07/09/2005 04/26/2009 PNEUMATURIA 03/20/2005 02/02/2009 FISTULA ENTEROVESICAL 03/14/2005 02/02/2009 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/2005 04/26/2009 Phlebitis and thrombophlebitis of unspecified si te 09/25/2004 04/26/2009 Achilles bursitis or tendinitis 05/07/2004 04/26/2009 documented as of this encounter (statuses as of 07/02/2021) [facility]arrative* Problem Noted Date Resolved Date Cholecystitis with cholelithiasis 06/08/2014 04/10/2016 Cholelithiasis 05/09/2010 04/10/2016 Overview: Incidental CT finding 2009 Other specified disorder of male genital organs( 608.89) 10/23/2006 04/26/2009 Hematuria 04/01/2006 04/26/2009 Open wound of foot except toe(s) alone, complica yanna 03/05/2006 02/02/2009 Urinary frequency 09/04/2005 04/26/2009 ASA CLASS III 07/09/2005 04/26/2009 PNEUMATURIA 03/20/2005 02/02/2009 FISTULA ENTEROVESICAL 03/14/2005 02/02/2009 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/2005 04/26/2009 Phlebitis and thrombophlebitis of unspecified si te 09/25/2004 04/26/2009 Achilles bursitis or tendinitis 05/07/2004 04/26/2009 documented as of this encounter (statuses as of 07/03/2021) [facility]arrative* Problem Noted Date Resolved Date Cholecystitis with cholelithiasis 06/08/2014 04/10/2016 Cholelithiasis 05/09/2010 04/10/2016 Overview: Incidental CT finding 2009 Other specified disorder of male genital organs( 608.89) 10/23/2006 04/26/2009 Hematuria 04/01/2006 04/26/2009 Open wound of foot except toe(s) alone, complica yanna 03/05/2006 02/02/2009 Urinary frequency 09/04/2005 04/26/2009 ASA CLASS III 07/09/2005 04/26/2009 PNEUMATURIA 03/20/2005 02/02/2009 FISTULA ENTEROVESICAL 03/14/2005 02/02/2009 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/2005 04/26/2009 Phlebitis and thrombophlebitis of unspecified si te 09/25/2004 04/26/2009 Achilles bursitis or tendinitis 05/07/2004 04/26/2009 documented as of this encounter (statuses as of 07/04/2021) [facility]ative* Problem Noted Date Resolved Date Cholecystitis with cholelithiasis 06/08/2014 04/10/2016 Cholelithiasis 05/09/2010 04/10/2016 Overview: Incidental CT finding 2009 Other specified disorder of male genital organs( 608.89) 10/23/2006 04/26/2009 Hematuria 04/01/2006 04/26/2009 Open wound of foot except toe(s) alone, complica yanna 03/05/2006 02/02/2009 Urinary frequency 09/04/2005 04/26/2009 ASA CLASS III 07/09/2005 04/26/2009 PNEUMATURIA 03/20/2005 02/02/2009 FISTULA ENTEROVESICAL 03/14/2005 02/02/2009 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/2005 04/26/2009 Phlebitis and thrombophlebitis of unspecified si te 09/25/2004 04/26/2009 Achilles bursitis or tendinitis 05/07/2004 04/26/2009 documented as of this encounter (statuses as of 07/08/2021) [facility]ative* Problem Noted Date Resolved Date Cholecystitis with cholelithiasis 06/08/2014 04/10/2016 Cholelithiasis 05/09/2010 04/10/2016 Overview: Incidental CT finding 2009 Other specified disorder of male genital organs( 608.89) 10/23/2006 04/26/2009 Hematuria 04/01/2006 04/26/2009 Open wound of foot except toe(s) alone, complica yanna 03/05/2006 02/02/2009 Urinary frequency 09/04/2005 04/26/2009 ASA CLASS III 07/09/2005 04/26/2009 PNEUMATURIA 03/20/2005 02/02/2009 FISTULA ENTEROVESICAL 03/14/2005 02/02/2009 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/2005 04/26/2009 Phlebitis and thrombophlebitis of unspecified si te 09/25/2004 04/26/2009 Achilles bursitis or tendinitis 05/07/2004 04/26/2009 documented as of this encounter (statuses as of 07/08/2021) [facility]* Problem Noted Date Resolved Date Cholecystitis with cholelithiasis 06/08/2014 04/10/2016 Cholelithiasis 05/09/2010 04/10/2016 Overview: Incidental CT finding 2009 Other specified disorder of male genital organs( 608.89) 10/23/2006 04/26/2009 Hematuria 04/01/2006 04/26/2009 Open wound of foot except toe(s) alone, complica yanna 03/05/2006 02/02/2009 Urinary frequency 09/04/2005 04/26/2009 ASA CLASS III 07/09/2005 04/26/2009 PNEUMATURIA 03/20/2005 02/02/2009 FISTULA ENTEROVESICAL 03/14/2005 02/02/2009 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/2005 04/26/2009 Phlebitis and thrombophlebitis of unspecified si te 09/25/2004 04/26/2009 Achilles bursitis or tendinitis 05/07/2004 04/26/2009 documented as of this encounter (statuses as of 07/08/2021) [facility]ative* Problem Noted Date Resolved Date Cholecystitis with cholelithiasis 06/08/2014 04/10/2016 Cholelithiasis 05/09/2010 04/10/2016 Overview: Incidental CT finding 2009 Other specified disorder of male genital organs( 608.89) 10/23/2006 04/26/2009 Hematuria 04/01/2006 04/26/2009 Open wound of foot except toe(s) alone, complica yanna 03/05/2006 02/02/2009 Urinary frequency 09/04/2005 04/26/2009 ASA CLASS III 07/09/2005 04/26/2009 PNEUMATURIA 03/20/2005 02/02/2009 FISTULA ENTEROVESICAL 03/14/2005 02/02/2009 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/2005 04/26/2009 Phlebitis and thrombophlebitis of unspecified si te 09/25/2004 04/26/2009 Achilles bursitis or tendinitis 05/07/2004 04/26/2009 documented as of this encounter (statuses as of 07/09/2021) [facility]ative* Problem Noted Date Resolved Date Cholecystitis with cholelithiasis 06/08/2014 04/10/2016 Low back pain 05/19/2011 07/15/2021 Cholelithiasis 05/09/2010 04/10/2016 Overview: Incidental CT finding 2009 Muscle weakness (generalized) 01/10/2010 Other specified disorder of male genital organs( 608.89) 10/23/2006 04/26/2009 Hematuria 04/01/2006 04/26/2009 Open wound of foot except toe(s) alone, complica yanna 03/05/2006 02/02/2009 Urinary frequency 09/04/2005 04/26/2009 ASA CLASS III 07/09/2005 04/26/2009 PNEUMATURIA 03/20/2005 02/02/2009 FISTULA ENTEROVESICAL 03/14/2005 02/02/2009 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/2005 04/26/2009 Phlebitis and thrombophlebitis of unspecified si te 09/25/2004 04/26/2009 Achilles bursitis or tendinitis 05/07/2004 04/26/2009 Bronchitis, mucopurulent recurrent 07/15/2021 Last Assessment & Plan: Assessment: no recent episodes, rx as needed documented as of this encounter (statuses as of 07/15/2021) [facility]arrative* Problem Noted Date Resolved Date Cholecystitis with cholelithiasis 06/08/2014 04/10/2016 Low back pain 05/19/2011 07/15/2021 Cholelithiasis 05/09/2010 04/10/2016 Overview: Incidental CT finding 2009 Muscle weakness (generalized) 01/10/2010 Other specified disorder of male genital organs( 608.89) 10/23/2006 04/26/2009 Hematuria 04/01/2006 04/26/2009 Open wound of foot except toe(s) alone, complica yanna 03/05/2006 02/02/2009 Urinary frequency 09/04/2005 04/26/2009 ASA CLASS III 07/09/2005 04/26/2009 PNEUMATURIA 03/20/2005 02/02/2009 FISTULA ENTEROVESICAL 03/14/2005 02/02/2009 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/2005 04/26/2009 Phlebitis and thrombophlebitis of unspecified si te 09/25/2004 04/26/2009 Achilles bursitis or tendinitis 05/07/2004 04/26/2009 Bronchitis, mucopurulent recurrent 07/15/2021 Last Assessment & Plan: Assessment: no recent episodes, rx as needed documented as of this encounter (statuses as of 07/15/2021) [facility]* Problem Noted Date Resolved Date Cholecystitis with cholelithiasis 06/08/2014 04/10/2016 Low back pain 05/19/2011 07/15/2021 Cholelithiasis 05/09/2010 04/10/2016 Overview: Incidental CT finding 2009 Muscle weakness (generalized) 01/10/2010 Other specified disorder of male genital organs( 608.89) 10/23/2006 04/26/2009 Hematuria 04/01/2006 04/26/2009 Open wound of foot except toe(s) alone, complica yanna 03/05/2006 02/02/2009 Urinary frequency 09/04/2005 04/26/2009 ASA CLASS III 07/09/2005 04/26/2009 PNEUMATURIA 03/20/2005 02/02/2009 FISTULA ENTEROVESICAL 03/14/2005 02/02/2009 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/2005 04/26/2009 Phlebitis and thrombophlebitis of unspecified si te 09/25/2004 04/26/2009 Achilles bursitis or tendinitis 05/07/2004 04/26/2009 Bronchitis, mucopurulent recurrent 07/15/2021 Last Assessment & Plan: Assessment: no recent episodes, rx as needed documented as of this encounter (statuses as of 07/16/2021) [facility]arrative* Problem Noted Date Resolved Date Cholecystitis with cholelithiasis 06/08/2014 04/10/2016 Low back pain 05/19/2011 07/15/2021 Cholelithiasis 05/09/2010 04/10/2016 Overview: Incidental CT finding 2009 Muscle weakness (generalized) 01/10/2010 Other specified disorder of male genital organs( 608.89) 10/23/2006 04/26/2009 Hematuria 04/01/2006 04/26/2009 Open wound of foot except toe(s) alone, complica yanna 03/05/2006 02/02/2009 Urinary frequency 09/04/2005 04/26/2009 ASA CLASS III 07/09/2005 04/26/2009 PNEUMATURIA 03/20/2005 02/02/2009 FISTULA ENTEROVESICAL 03/14/2005 02/02/2009 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/2005 04/26/2009 Phlebitis and thrombophlebitis of unspecified si te 09/25/2004 04/26/2009 Achilles bursitis or tendinitis 05/07/2004 04/26/2009 Bronchitis, mucopurulent recurrent 07/15/2021 Last Assessment & Plan: Assessment: no recent episodes, rx as needed documented as of this encounter (statuses as of 07/22/2021) [facility]* Problem Noted Date Resolved Date Cholecystitis with cholelithiasis 06/08/2014 04/10/2016 Low back pain 05/19/2011 07/15/2021 Cholelithiasis 05/09/2010 04/10/2016 Overview: Incidental CT finding 2009 Muscle weakness (generalized) 01/10/2010 Other specified disorder of male genital organs( 608.89) 10/23/2006 04/26/2009 Hematuria 04/01/2006 04/26/2009 Open wound of foot except toe(s) alone, complica yanna 03/05/2006 02/02/2009 Urinary frequency 09/04/2005 04/26/2009 ASA CLASS III 07/09/2005 04/26/2009 PNEUMATURIA 03/20/2005 02/02/2009 FISTULA ENTEROVESICAL 03/14/2005 02/02/2009 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/2005 04/26/2009 Phlebitis and thrombophlebitis of unspecified si te 09/25/2004 04/26/2009 Achilles bursitis or tendinitis 05/07/2004 04/26/2009 Bronchitis, mucopurulent recurrent 07/15/2021 Last Assessment & Plan: Assessment: no recent episodes, rx as needed documented as of this encounter (statuses as of 07/23/2021) [facility]* Problem Noted Date Resolved Date Cholecystitis with cholelithiasis 06/08/2014 04/10/2016 Low back pain 05/19/2011 07/15/2021 Cholelithiasis 05/09/2010 04/10/2016 Overview: Incidental CT finding 2009 Muscle weakness (generalized) 01/10/2010 Other specified disorder of male genital organs( 608.89) 10/23/2006 04/26/2009 Hematuria 04/01/2006 04/26/2009 Open wound of foot except toe(s) alone, complica yanna 03/05/2006 02/02/2009 Urinary frequency 09/04/2005 04/26/2009 ASA CLASS III 07/09/2005 04/26/2009 PNEUMATURIA 03/20/2005 02/02/2009 FISTULA ENTEROVESICAL 03/14/2005 02/02/2009 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/2005 04/26/2009 Phlebitis and thrombophlebitis of unspecified si te 09/25/2004 04/26/2009 Achilles bursitis or tendinitis 05/07/2004 04/26/2009 Bronchitis, mucopurulent recurrent 07/15/2021 Last Assessment & Plan: Assessment: no recent episodes, rx as needed documented as of this encounter (statuses as of 08/07/2021) [facility]* Problem Noted Date Resolved Date Cholecystitis with cholelithiasis 06/08/2014 04/10/2016 Low back pain 05/19/2011 07/15/2021 Cholelithiasis 05/09/2010 04/10/2016 Overview: Incidental CT finding 2009 Muscle weakness (generalized) 01/10/2010 Other specified disorder of male genital organs( 608.89) 10/23/2006 04/26/2009 Hematuria 04/01/2006 04/26/2009 Open wound of foot except toe(s) alone, complica yanna 03/05/2006 02/02/2009 Urinary frequency 09/04/2005 04/26/2009 ASA CLASS III 07/09/2005 04/26/2009 PNEUMATURIA 03/20/2005 02/02/2009 FISTULA ENTEROVESICAL 03/14/2005 02/02/2009 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/2005 04/26/2009 Phlebitis and thrombophlebitis of unspecified si te 09/25/2004 04/26/2009 Achilles bursitis or tendinitis 05/07/2004 04/26/2009 Bronchitis, mucopurulent recurrent 07/15/2021 Last Assessment & Plan: Assessment: no recent episodes, rx as needed documented as of this encounter (statuses as of 08/09/2021) [facility]* Problem Noted Date Resolved Date Cholecystitis with cholelithiasis 06/08/2014 04/10/2016 Low back pain 05/19/2011 07/15/2021 Cholelithiasis 05/09/2010 04/10/2016 Overview: Incidental CT finding 2009 Muscle weakness (generalized) 01/10/2010 Other specified disorder of male genital organs( 608.89) 10/23/2006 04/26/2009 Hematuria 04/01/2006 04/26/2009 Open wound of foot except toe(s) alone, complica yanna 03/05/2006 02/02/2009 Urinary frequency 09/04/2005 04/26/2009 ASA CLASS III 07/09/2005 04/26/2009 PNEUMATURIA 03/20/2005 02/02/2009 FISTULA ENTEROVESICAL 03/14/2005 02/02/2009 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/2005 04/26/2009 Phlebitis and thrombophlebitis of unspecified si te 09/25/2004 04/26/2009 Achilles bursitis or tendinitis 05/07/2004 04/26/2009 Bronchitis, mucopurulent recurrent 07/15/2021 Last Assessment & Plan: Assessment: no recent episodes, rx as needed documented as of this encounter (statuses as of 08/16/2021) [facility]* Problem Noted Date Resolved Date Cholecystitis with cholelithiasis 06/08/2014 04/10/2016 Low back pain 05/19/2011 07/15/2021 Cholelithiasis 05/09/2010 04/10/2016 Overview: Incidental CT finding 2009 Muscle weakness (generalized) 01/10/2010 Other specified disorder of male genital organs( 608.89) 10/23/2006 04/26/2009 Hematuria 04/01/2006 04/26/2009 Open wound of foot except toe(s) alone, complica yanna 03/05/2006 02/02/2009 Urinary frequency 09/04/2005 04/26/2009 ASA CLASS III 07/09/2005 04/26/2009 PNEUMATURIA 03/20/2005 02/02/2009 FISTULA ENTEROVESICAL 03/14/2005 02/02/2009 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/2005 04/26/2009 Phlebitis and thrombophlebitis of unspecified si te 09/25/2004 04/26/2009 Achilles bursitis or tendinitis 05/07/2004 04/26/2009 Bronchitis, mucopurulent recurrent 07/15/2021 Last Assessment & Plan: Assessment: no recent episodes, rx as needed documented as of this encounter (statuses as of 08/20/2021) [facility]* Problem Noted Date Resolved Date Cholecystitis with cholelithiasis 06/08/2014 04/10/2016 Low back pain 05/19/2011 07/15/2021 Cholelithiasis 05/09/2010 04/10/2016 Overview: Incidental CT finding 2009 Muscle weakness (generalized) 01/10/2010 Other specified disorder of male genital organs( 608.89) 10/23/2006 04/26/2009 Hematuria 04/01/2006 04/26/2009 Open wound of foot except toe(s) alone, complica yanna 03/05/2006 02/02/2009 Urinary frequency 09/04/2005 04/26/2009 ASA CLASS III 07/09/2005 04/26/2009 PNEUMATURIA 03/20/2005 02/02/2009 FISTULA ENTEROVESICAL 03/14/2005 02/02/2009 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/2005 04/26/2009 Phlebitis and thrombophlebitis of unspecified si te 09/25/2004 04/26/2009 Achilles bursitis or tendinitis 05/07/2004 04/26/2009 Bronchitis, mucopurulent recurrent 07/15/2021 Last Assessment & Plan: Assessment: no recent episodes, rx as needed documented as of this encounter (statuses as of 08/23/2021) [facility]arr[facility]* Problem Noted Date Resolved Date Cholecystitis with cholelithiasis 06/08/2014 04/10/2016 Low back pain 05/19/2011 07/15/2021 Cholelithiasis 05/09/2010 04/10/2016 Overview: Incidental CT finding 2009 Muscle weakness (generalized) 01/10/2010 Other specified disorder of male genital organs( 608.89) 10/23/2006 04/26/2009 Hematuria 04/01/2006 04/26/2009 Open wound of foot except toe(s) alone, complica yanna 03/05/2006 02/02/2009 Urinary frequency 09/04/2005 04/26/2009 ASA CLASS III 07/09/2005 04/26/2009 PNEUMATURIA 03/20/2005 02/02/2009 FISTULA ENTEROVESICAL 03/14/2005 02/02/2009 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/2005 04/26/2009 Phlebitis and thrombophlebitis of unspecified si te 09/25/2004 04/26/2009 Achilles bursitis or tendinitis 05/07/2004 04/26/2009 Bronchitis, mucopurulent recurrent 07/15/2021 Last Assessment & Plan: Assessment: no recent episodes, rx as needed documented as of this encounter (statuses as of 08/26/2021) [facility]arrative* Problem Noted Date Resolved Date Cholecystitis with cholelithiasis 06/08/2014 04/10/2016 Low back pain 05/19/2011 07/15/2021 Cholelithiasis 05/09/2010 04/10/2016 Overview: Incidental CT finding 2009 Muscle weakness (generalized) 01/10/2010 Other specified disorder of male genital organs( 608.89) 10/23/2006 04/26/2009 Hematuria 04/01/2006 04/26/2009 Open wound of foot except toe(s) alone, complica yanna 03/05/2006 02/02/2009 Urinary frequency 09/04/2005 04/26/2009 ASA CLASS III 07/09/2005 04/26/2009 PNEUMATURIA 03/20/2005 02/02/2009 FISTULA ENTEROVESICAL 03/14/2005 02/02/2009 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/2005 04/26/2009 Phlebitis and thrombophlebitis of unspecified si te 09/25/2004 04/26/2009 Achilles bursitis or tendinitis 05/07/2004 04/26/2009 Bronchitis, mucopurulent recurrent 07/15/2021 Last Assessment & Plan: Assessment: no recent episodes, rx as needed documented as of this encounter (statuses as of 09/11/2021) [facility]* Problem Noted Date Resolved Date Cholecystitis with cholelithiasis 06/08/2014 04/10/2016 Low back pain 05/19/2011 07/15/2021 Cholelithiasis 05/09/2010 04/10/2016 Overview: Incidental CT finding 2009 Muscle weakness (generalized) 01/10/2010 Other specified disorder of male genital organs( 608.89) 10/23/2006 04/26/2009 Hematuria 04/01/2006 04/26/2009 Open wound of foot except toe(s) alone, complica yanna 03/05/2006 02/02/2009 Urinary frequency 09/04/2005 04/26/2009 ASA CLASS III 07/09/2005 04/26/2009 PNEUMATURIA 03/20/2005 02/02/2009 FISTULA ENTEROVESICAL 03/14/2005 02/02/2009 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/2005 04/26/2009 Phlebitis and thrombophlebitis of unspecified si te 09/25/2004 04/26/2009 Achilles bursitis or tendinitis 05/07/2004 04/26/2009 Bronchitis, mucopurulent recurrent 07/15/2021 Last Assessment & Plan: Assessment: no recent episodes, rx as needed documented as of this encounter (statuses as of 09/11/2021) [facility] History of Past illness Narrative* Problem Noted Date Resolved Date Cholecystitis with cholelithiasis 06/08/2014 04/10/2016 Low back pain 05/19/2011 07/15/2021 Cholelithiasis 05/09/2010 04/10/2016 Overview: Incidental CT finding 2009 Muscle weakness (generalized) 01/10/2010 Other specified disorder of male genital organs( 608.89) 10/23/2006 04/26/2009 Hematuria 04/01/2006 04/26/2009 Open wound of foot except toe(s) alone, complica yanna 03/05/2006 02/02/2009 Urinary frequency 09/04/2005 04/26/2009 ASA CLASS III 07/09/2005 04/26/2009 PNEUMATURIA 03/20/2005 02/02/2009 FISTULA ENTEROVESICAL 03/14/2005 02/02/2009 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/2005 04/26/2009 Phlebitis and thrombophlebitis of unspecified si te 09/25/2004 04/26/2009 Achilles bursitis or tendinitis 05/07/2004 04/26/2009 Bronchitis, mucopurulent recurrent 07/15/2021 Last Assessment & Plan: Assessment: no recent episodes, rx as needed documented as of this encounter (statuses as of 09/19/2021) [facility] History of Past illness Narrative* Problem Noted Date Resolved Date Cholecystitis with cholelithiasis 06/08/2014 04/10/2016 Low back pain 05/19/2011 07/15/2021 Cholelithiasis 05/09/2010 04/10/2016 Overview: Incidental CT finding 2009 Muscle weakness (generalized) 01/10/2010 Other specified disorder of male genital organs( 608.89) 10/23/2006 04/26/2009 Hematuria 04/01/2006 04/26/2009 Open wound of foot except toe(s) alone, complica yanna 03/05/2006 02/02/2009 Urinary frequency 09/04/2005 04/26/2009 ASA CLASS III 07/09/2005 04/26/2009 PNEUMATURIA 03/20/2005 02/02/2009 FISTULA ENTEROVESICAL 03/14/2005 02/02/2009 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/2005 04/26/2009 Phlebitis and thrombophlebitis of unspecified si te 09/25/2004 04/26/2009 Achilles bursitis or tendinitis 05/07/2004 04/26/2009 Bronchitis, mucopurulent recurrent 07/15/2021 Last Assessment & Plan: Assessment: no recent episodes, rx as needed documented as of this encounter (statuses as of 09/19/2021) [facility] History of Past illness Narrative* Problem Noted Date Resolved Date Cholecystitis with cholelithiasis 06/08/2014 04/10/2016 Low back pain 05/19/2011 07/15/2021 Cholelithiasis 05/09/2010 04/10/2016 Overview: Incidental CT finding 2009 Muscle weakness (generalized) 01/10/2010 Other specified disorder of male genital organs( 608.89) 10/23/2006 04/26/2009 Hematuria 04/01/2006 04/26/2009 Open wound of foot except toe(s) alone, complica yanna 03/05/2006 02/02/2009 Urinary frequency 09/04/2005 04/26/2009 ASA CLASS III 07/09/2005 04/26/2009 PNEUMATURIA 03/20/2005 02/02/2009 FISTULA ENTEROVESICAL 03/14/2005 02/02/2009 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/2005 04/26/2009 Phlebitis and thrombophlebitis of unspecified si te 09/25/2004 04/26/2009 Achilles bursitis or tendinitis 05/07/2004 04/26/2009 Bronchitis, mucopurulent recurrent 07/15/2021 Last Assessment & Plan: Assessment: no recent episodes, rx as needed documented as of this encounter (statuses as of 09/23/2021) [facility] History of Past illness Narrative* Problem Noted Date Resolved Date Cholecystitis with cholelithiasis 06/08/2014 04/10/2016 Low back pain 05/19/2011 07/15/2021 Cholelithiasis 05/09/2010 04/10/2016 Overview: Incidental CT finding 2009 Muscle weakness (generalized) 01/10/2010 Other specified disorder of male genital organs( 608.89) 10/23/2006 04/26/2009 Hematuria 04/01/2006 04/26/2009 Open wound of foot except toe(s) alone, complica yanna 03/05/2006 02/02/2009 Urinary frequency 09/04/2005 04/26/2009 ASA CLASS III 07/09/2005 04/26/2009 PNEUMATURIA 03/20/2005 02/02/2009 FISTULA ENTEROVESICAL 03/14/2005 02/02/2009 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/2005 04/26/2009 Phlebitis and thrombophlebitis of unspecified si te 09/25/2004 04/26/2009 Achilles bursitis or tendinitis 05/07/2004 04/26/2009 Bronchitis, mucopurulent recurrent 07/15/2021 Last Assessment & Plan: Assessment: no recent episodes, rx as needed documented as of this encounter (statuses as of 09/25/2021) [facility] History of Past illness Narrative* Problem Noted Date Resolved Date Cholecystitis with cholelithiasis 06/08/2014 04/10/2016 Low back pain 05/19/2011 07/15/2021 Cholelithiasis 05/09/2010 04/10/2016 Overview: Incidental CT finding 2009 Muscle weakness (generalized) 01/10/2010 Other specified disorder of male genital organs( 608.89) 10/23/2006 04/26/2009 Hematuria 04/01/2006 04/26/2009 Open wound of foot except toe(s) alone, complica yanna 03/05/2006 02/02/2009 Urinary frequency 09/04/2005 04/26/2009 ASA CLASS III 07/09/2005 04/26/2009 PNEUMATURIA 03/20/2005 02/02/2009 FISTULA ENTEROVESICAL 03/14/2005 02/02/2009 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/2005 04/26/2009 Phlebitis and thrombophlebitis of unspecified si te 09/25/2004 04/26/2009 Achilles bursitis or tendinitis 05/07/2004 04/26/2009 Bronchitis, mucopurulent recurrent 07/15/2021 Last Assessment & Plan: Assessment: no recent episodes, rx as needed documented as of this encounter (statuses as of 10/23/2021) [facility] History of Past illness Narrative* Problem Noted Date Resolved Date Cholecystitis with cholelithiasis 06/08/2014 04/10/2016 Low back pain 05/19/2011 07/15/2021 Cholelithiasis 05/09/2010 04/10/2016 Overview: Incidental CT finding 2009 Muscle weakness (generalized) 01/10/2010 Other specified disorder of male genital organs( 608.89) 10/23/2006 04/26/2009 Hematuria 04/01/2006 04/26/2009 Open wound of foot except toe(s) alone, complica yanna 03/05/2006 02/02/2009 Urinary frequency 09/04/2005 04/26/2009 ASA CLASS III 07/09/2005 04/26/2009 PNEUMATURIA 03/20/2005 02/02/2009 FISTULA ENTEROVESICAL 03/14/2005 02/02/2009 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/2005 04/26/2009 Phlebitis and thrombophlebitis of unspecified si te 09/25/2004 04/26/2009 Achilles bursitis or tendinitis 05/07/2004 04/26/2009 Bronchitis, mucopurulent recurrent 07/15/2021 Last Assessment & Plan: Assessment: no recent episodes, rx as needed documented as of this encounter (statuses as of 11/27/2021) [facility] History of Past illness Narrative* Problem Noted Date Resolved Date Cholecystitis with cholelithiasis 06/08/2014 04/10/2016 Low back pain 05/19/2011 07/15/2021 Cholelithiasis 05/09/2010 04/10/2016 Overview: Incidental CT finding 2009 Muscle weakness (generalized) 01/10/2010 Other specified disorder of male genital organs( 608.89) 10/23/2006 04/26/2009 Hematuria 04/01/2006 04/26/2009 Open wound of foot except toe(s) alone, complica yanna 03/05/2006 02/02/2009 Urinary frequency 09/04/2005 04/26/2009 ASA CLASS III 07/09/2005 04/26/2009 PNEUMATURIA 03/20/2005 02/02/2009 FISTULA ENTEROVESICAL 03/14/2005 02/02/2009 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/2005 04/26/2009 Phlebitis and thrombophlebitis of unspecified si te 09/25/2004 04/26/2009 Achilles bursitis or tendinitis 05/07/2004 04/26/2009 Bronchitis, mucopurulent recurrent 07/15/2021 Last Assessment & Plan: Assessment: no recent episodes, rx as needed documented as of this encounter (statuses as of 11/28/2021) [facility] History of Past illness Narrative* Problem Noted Date Resolved Date Cholecystitis with cholelithiasis 06/08/2014 04/10/2016 Low back pain 05/19/2011 07/15/2021 Cholelithiasis 05/09/2010 04/10/2016 Overview: Incidental CT finding 2009 Muscle weakness (generalized) 01/10/2010 Other specified disorder of male genital organs( 608.89) 10/23/2006 04/26/2009 Hematuria 04/01/2006 04/26/2009 Open wound of foot except toe(s) alone, complica yanna 03/05/2006 02/02/2009 Urinary frequency 09/04/2005 04/26/2009 ASA CLASS III 07/09/2005 04/26/2009 PNEUMATURIA 03/20/2005 02/02/2009 FISTULA ENTEROVESICAL 03/14/2005 02/02/2009 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/2005 04/26/2009 Phlebitis and thrombophlebitis of unspecified si te 09/25/2004 04/26/2009 Achilles bursitis or tendinitis 05/07/2004 04/26/2009 Bronchitis, mucopurulent recurrent 07/15/2021 Last Assessment & Plan: Assessment: no recent episodes, rx as needed documented as of this encounter (statuses as of 12/02/2021) [facility] History of Past illness Narrative* Problem Noted Date Resolved Date Cholecystitis with cholelithiasis 06/08/2014 04/10/2016 Low back pain 05/19/2011 07/15/2021 Cholelithiasis 05/09/2010 04/10/2016 Overview: Incidental CT finding 2009 Muscle weakness (generalized) 01/10/2010 Other specified disorder of male genital organs( 608.89) 10/23/2006 04/26/2009 Hematuria 04/01/2006 04/26/2009 Open wound of foot except toe(s) alone, complica yanna 03/05/2006 02/02/2009 Urinary frequency 09/04/2005 04/26/2009 ASA CLASS III 07/09/2005 04/26/2009 PNEUMATURIA 03/20/2005 02/02/2009 FISTULA ENTEROVESICAL 03/14/2005 02/02/2009 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/2005 04/26/2009 Phlebitis and thrombophlebitis of unspecified si te 09/25/2004 04/26/2009 Achilles bursitis or tendinitis 05/07/2004 04/26/2009 Bronchitis, mucopurulent recurrent 07/15/2021 Last Assessment & Plan: Assessment: no recent episodes, rx as needed documented as of this encounter (statuses as of 12/11/2021) [facility] Diagnosis Lupus anticoagulant disorder (HCC)- Primary Primary hypercoagulable state Thrombocytopenia (HCC) Thrombocytopenia, unspecified documented in this encounter [facility] note* Diagnosis Antiphospholipid antibody syndrome (HCC)- Primary Primary hypercoagulable state Personal history of DVT (deep vein thrombosis) Personal history of venous thrombosis and embolism Personal history of PE (pulmonary embolism) Personal history of pulmonary embolism On continuous oral anticoagulation Long-term (current) use of anticoagulants Thrombocytopenia (HCC) Thrombocytopenia, unspecified Splenomegaly Secondary esophageal varices without bleeding (HCC) Esophageal varices without mention of bleeding in diseases classified elsewhere Preoperative examination Preoperative examination, unspecified documented in this encounter [facility] note* Diagnosis Postprocedural male urethral stricture- Primary Postoperative urethral stricture Postprocedural male urethral stricture Postoperative urethral stricture documented in this encounter [facility] note* Diagnosis Pre-operative examination- Primary Preoperative examination, unspecified 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 Personal history of DVT (deep vein thrombosis) Personal history of venous thrombosis and embolism Splenomegaly Thrombocytopenia (HCC) Thrombocytopenia, unspecified History of pulmonary embolism Personal history of pulmonary embolism Polycythemia, secondary Left hemiparesis (HCC) Hemiplegia, unspecified, affecting unspecified side MARC (obstructive sleep apnea) Obstructive sleep apnea (adult) (pediatric) 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 Chronic interstitial cystitis Bronchitis, mucopurulent recurrent (HCC) Mucopurulent chronic bronchitis Diabetes mellitus type II (HCC) Hepatic steatosis Other chronic nonalcoholic liver disease Hypothyroidism, unspecified type Lupus anticoagulant disorder (HCC) Primary hypercoagulable state Primary testicular hypogonadism Other testicular hypofunction Obesity (BMI 30-39.9) Obesity, unspecified Postprocedural male urethral stricture Postoperative urethral stricture documented in this encounter [facility] note* Diagnosis Pre-operative cardiovascular examination- Primary Postprocedural male urethral stricture Postoperative urethral stricture Postprocedural male urethral stricture Postoperative urethral stricture documented in this encounter [facility] note* Diagnosis Obstructive sleep apnea (adult) (pediatric)- Primary Insomnia, unspecified type Postprocedural male urethral stricture Postoperative urethral stricture documented in this encounter [facility] note* Diagnosis Postprocedural male urethral stricture- Primary Postoperative urethral stricture Postprocedural male urethral stricture Postoperative urethral stricture documented in this encounter [facility] note* Diagnosis Preoperative cardiovascular examination- Primary Pre-operative cardiovascular examination MARC (obstructive sleep apnea) Obstructive sleep apnea (adult) (pediatric) Lupus anticoagulant disorder (HCC) Primary hypercoagulable state Hepatic steatosis Other chronic nonalcoholic liver disease Diabetes mellitus type II (HCC) Postprocedural male urethral stricture Postoperative urethral stricture documented in this encounter [facility] note* Diagnosis 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 Traumatic urethral stricture Postprocedural bulbous urethral stricture Postoperative urethral stricture documented in this encounter [facility] note* Diagnosis Postprocedural bulbous urethral stricture Postoperative urethral stricture documented in this encounter [facility] note* Diagnosis Urinary retention- Primary Retention of urine, unspecified 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 documented in this encounter [facility] note* Diagnosis History of suprapubic catheter- Primary Other postprocedural status Screening for genitourinary condition Screening for other and unspecified genitourinary condition 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 documented in this encounter [facility] note* Diagnosis Screening for genitourinary condition Screening for other and unspecified genitourinary condition History of suprapubic catheter Other postprocedural status documented in this encounter [facility] note* Diagnosis Onset Date Resolution Status Diabetes acute Hypothyroidism (acquired) ac [place] Male hypogonadism chronic Osteopenia determined by x-ray [facility] Work Phone: Evaluation note* Diagnosis Diabetes mellitus type II (HCC)- Primary MARC (obstructive sleep apnea) Obstructive sleep apnea (adult) (pediatric) Obesity (BMI 30-39.9) Obesity, unspecified Esophageal varices without bleeding, unspecified esophageal varices type (HCC) Hypothyroidism, unspecified type Screening for hyperlipidemia Screening for lipoid disorders [facility] Herpes zoster without complication- Primary Herpes zoster without mention of complication [facility]* Diagnosis Vesicocutaneous fistula- Primary Vesical fistula, not elsewhere classified History of suprapubic catheter Other postprocedural status Pyuria Other nonspecific finding on examination of urine documented [facility] this [facility]* Diagnosis Postprocedural male urethral stricture- Primary Postoperative urethral stricture Vesicocutaneous fistula Vesical fistula, 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 Postoperative urethral stricture Vesicocutaneous fistula Vesical fistula, not elsewhere classified [facility] Diagnosis Screening for genitourinary condition Screening for other and unspecified genitourinary condition Postprocedural male urethral stricture Postoperative urethral stricture Vesicocutaneous fistula Vesical fistula, not elsewhere classified documented [facility] encounter [facility]* Diagnosis Diabetes mellitus type II (HCC)- Primary MARC (obstructive sleep apnea) Obstructive sleep apnea (adult) (pediatric) Hypothyroidism, unspecified type Cirrhosis, 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 Vitamin D deficiency Unspecified vitamin D deficiency Obesity (BMI 30-39.9) Obesity, unspecified Need for influenza vaccination Need for prophylactic vaccination and inoculation against influenza Need for COVID-19 vaccine Need for vaccination Need for prophylactic vaccination and inoculation against unspecified single disease Herpes zoster without complication Herpes zoster without mention of complication Primary insomnia Persistent disorder of initiating or maintaining sleep Postprocedural male urethral stricture Postoperative urethral stricture Vesicocutaneous fistula Vesical fistula, not elsewhere classified [facility] Diagnosis Pre-operative examination- Primary Preoperative examination, unspecified History of pulmonary embolism Personal history of pulmonary embolism Polycythemia, secondary Left hemiparesis (HCC) Hemiplegia, unspecified, affecting unspecified side MARC (obstructive sleep apnea) Obstructive sleep apnea (adult) (pediatric) Chronic interstitial cystitis 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 Thrombocytopenia (HCC) Thrombocytopenia, unspecified Splenomegaly Primary testicular hypogonadism Other testicular hypofunction Personal history of DVT (deep vein thrombosis) Personal history of venous thrombosis and embolism Obesity (BMI 30-39.9) Obesity, unspecified Lupus anticoagulant disorder (HCC) Primary hypercoagulable state Hypothyroidism, unspecified type Hepatic steatosis Other chronic nonalcoholic liver disease Diabetes mellitus type II (HCC) Secondary esophageal varices without bleeding (HCC) Esophageal varices without mention of bleeding in diseases classified elsewhere Postprocedural male urethral stricture Postoperative urethral stricture Vesicocutaneous fistula Vesical fistula, not elsewhere classified [facility]* Diagnosis Diabetes mellitus type II (HCC) [facility]* Diagnosis Thrombocytopenia (HCC)- Primary Thrombocytopenia, unspecified Splenomegaly Polycythemia, secondary Hepatic steatosis Other chronic nonalcoholic liver disease [facility]* Diagnosis Splenomegaly, not elsewhere classified- Primary Thrombocytopenia (HCC) Thrombocytopenia, unspecified Neutropenia, unspecified type (HCC) Hepatic steatosis Other chronic nonalcoholic liver disease Lower abdominal pain Abdominal pain, other specified site Lupus anticoagulant disorder (HCC) Primary hypercoagulable state [facility]* Diagnosis Splenomegaly- Primary Thrombocytopenia (HCC) Thrombocytopenia, unspecified Portal hypertension with esophageal varices (HCC) Portal hypertension Cirrhosis of liver without ascites, unspecified hepatic cirrhosis type (HCC) [facility] encounter [facility]* Diagnosis Diabetes mellitus type II (HCC)- Primary Cirrhosis, 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 Recurrent deep vein thrombosis (DVT) (HCC) Splenomegaly MARC (obstructive sleep apnea) Obstructive sleep apnea (adult) (pediatric) Hypothyroidism, unspecified type Chronic insomnia Insomnia, unspecified Obesity (BMI 30-39.9) Obesity, unspecified Primary testicular hypogonadism Other testicular hypofunction Need for vaccination Need for prophylactic vaccination and inoculation against unspecified single disease Secondary esophageal varices without bleeding (HCC) Esophageal varices without mention of bleeding in diseases classified elsewhere Recurrent major depressive disorder, in remission (HCC) [facility]* Diagnosis Diabetes mellitus type II (HCC) [facility] Diagnosis Acute cough- Primary URI with cough and congestion [facility]* Diagnosis Splenomegaly, not elsewhere classified Hepatic steatosis Other chronic nonalcoholic liver disease Thrombocytopenia (HCC) Thrombocytopenia, unspecified Lower abdominal pain Abdominal pain, other specified site [facility]* Diagnosis Hypothyroidism, unspecified type- Primary Diabetes mellitus type II (HCC) Cirrhosis, 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 Encounter for immunization Need for other specified prophylactic vaccination against single bacterial disease Splenomegaly MARC (obstructive sleep apnea) Obstructive sleep apnea (adult) (pediatric) Secondary esophageal varices without bleeding (HCC) Esophageal varices without mention of bleeding in diseases classified elsewhere Hyperlipidemia, unspecified hyperlipidemia type Chronic insomnia Insomnia, unspecified Polycythemia, secondary Thrombocytopenia (HCC) Thrombocytopenia, unspecified documented in this encounter [facility] note* Diagnosis Annual physical exam- Primary Routine general medical examination at a health care facility Diabetes mellitus type II (HCC) Hypothyroidism, unspecified type Cirrhosis, 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 Secondary esophageal varices without bleeding (HCC) Esophageal varices without mention of bleeding in diseases classified elsewhere Splenomegaly Polycythemia, secondary Neutropenia, unspecified type (HCC) Thrombocytopenia (HCC) Thrombocytopenia, unspecified MARC (obstructive sleep apnea) Obstructive sleep apnea (adult) (pediatric) Hyperlipidemia, unspecified hyperlipidemia type Recurrent deep vein thrombosis (DVT) (HCC) Episode of recurrent major depressive disorder, unspecified depression episode severity (HCC) Chronic insomnia Insomnia, unspecified documented in this encounter [facility] note* Diagnosis Pre-operative examination- Primary Preoperative examination, unspecified Urinary retention Retention of urine, unspecified 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 Splenomegaly Lupus anticoagulant disorder (HCC) Primary hypercoagulable state Thrombocytopenia (HCC) Thrombocytopenia, unspecified History of pulmonary embolism Personal history of pulmonary embolism MARC (obstructive sleep apnea) Obstructive sleep apnea (adult) (pediatric) Hepatic steatosis Other chronic nonalcoholic liver disease Left hemiparesis (HCC) Hemiplegia, unspecified, affecting unspecified side Primary testicular hypogonadism Other testicular hypofunction Obesity (BMI 30-39.9) Obesity, unspecified Prediabetes Other abnormal glucose Preoperative examination- Primary Preoperative examination, unspecified Encounter for screening colonoscopy Special screening for malignant neoplasms, colon Portal hypertension with esophageal varices (HCC) Portal hypertension Diabetes mellitus type II (HCC) MARC (obstructive sleep apnea) Obstructive sleep apnea (adult) (pediatric) Left hemiparesis (HCC) Hemiplegia, unspecified, affecting unspecified side Splenomegaly Thrombocytopenia (HCC) Thrombocytopenia, unspecified Lupus anticoagulant disorder (HCC) Primary hypercoagulable state History of pulmonary embolism Personal history of pulmonary embolism Personal history of DVT (deep vein thrombosis) Personal history of venous thrombosis and embolism Hypothyroidism, unspecified type Hepatic steatosis Other chronic nonalcoholic liver disease Chronic interstitial cystitis 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 Bronchitis, mucopurulent recurrent (HCC) 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 Other testicular hypofunction Obesity (BMI 30-39.9) Obesity, unspecified Pre-operative examination- Primary Preoperative examination, unspecified 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 Personal history of DVT (deep vein thrombosis) Personal history of venous thrombosis and embolism Splenomegaly Thrombocytopenia (HCC) Thrombocytopenia, unspecified History of pulmonary embolism Personal history of pulmonary embolism Polycythemia, secondary Left hemiparesis (HCC) Hemiplegia, unspecified, affecting unspecified side MARC (obstructive sleep apnea) Obstructive sleep apnea (adult) (pediatric) 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 Chronic interstitial cystitis Bronchitis, mucopurulent recurrent (HCC) Mucopurulent chronic bronchitis Diabetes mellitus type II (HCC) Hepatic steatosis Other chronic nonalcoholic liver disease Hypothyroidism, unspecified type Lupus anticoagulant disorder (HCC) Primary hypercoagulable state Primary testicular hypogonadism Other testicular hypofunction Obesity (BMI 30-39.9) Obesity, unspecified Pre-operative examination- Primary Preoperative examination, unspecified History of pulmonary embolism Personal history of pulmonary embolism Polycythemia, secondary Left hemiparesis (HCC) Hemiplegia, unspecified, affecting unspecified side MARC (obstructive sleep apnea) Obstructive sleep apnea (adult) (pediatric) Chronic interstitial cystitis 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 Thrombocytopenia (HCC) Thrombocytopenia, unspecified Splenomegaly Primary testicular hypogonadism Other testicular hypofunction Personal history of DVT (deep vein thrombosis) Personal history of venous thrombosis and embolism Obesity (BMI 30-39.9) Obesity, unspecified Lupus anticoagulant disorder (HCC) Primary hypercoagulable state Hypothyroidism, unspecified type Hepatic steatosis Other chronic nonalcoholic liver disease Diabetes mellitus type II (HCC) Secondary esophageal varices without bleeding (HCC) Esophageal varices without mention of bleeding in diseases classified elsewhere [facility] Pre-operative examination- Primary Preoperative examination, unspecified Urinary retention Retention of urine, unspecified 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 Splenomegaly Lupus anticoagulant disorder (HCC) Primary hypercoagulable state Thrombocytopenia (HCC) Thrombocytopenia, unspecified History of pulmonary embolism Personal history of pulmonary embolism MARC (obstructive sleep apnea) Obstructive sleep apnea (adult) (pediatric) Hepatic steatosis Other chronic nonalcoholic liver disease Left hemiparesis (HCC) Hemiplegia, unspecified, affecting unspecified side Primary testicular hypogonadism Other testicular hypofunction Obesity (BMI 30-39.9) Obesity, unspecified Prediabetes Other abnormal glucose Preoperative examination- Primary Preoperative examination, unspecified Encounter for screening colonoscopy Special screening for malignant neoplasms, colon Portal hypertension with esophageal varices (HCC) Portal hypertension Diabetes mellitus type II (HCC) MARC (obstructive sleep apnea) Obstructive sleep apnea (adult) (pediatric) Left hemiparesis (HCC) Hemiplegia, unspecified, affecting unspecified side Splenomegaly Thrombocytopenia (HCC) Thrombocytopenia, unspecified Lupus anticoagulant disorder (HCC) Primary hypercoagulable state History of pulmonary embolism Personal history of pulmonary embolism Personal history of DVT (deep vein thrombosis) Personal history of venous thrombosis and embolism Hypothyroidism, unspecified type Hepatic steatosis Other chronic nonalcoholic liver disease Chronic interstitial cystitis 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 Bronchitis, mucopurulent recurrent (HCC) 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 Other testicular hypofunction Obesity (BMI 30-39.9) Obesity, unspecified Pre-operative examination- Primary Preoperative examination, unspecified 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 Personal history of DVT (deep vein thrombosis) Personal history of venous thrombosis and embolism Splenomegaly Thrombocytopenia (HCC) Thrombocytopenia, unspecified History of pulmonary embolism Personal history of pulmonary embolism Polycythemia, secondary Left hemiparesis (HCC) Hemiplegia, unspecified, affecting unspecified side MARC (obstructive sleep apnea) Obstructive sleep apnea (adult) (pediatric) 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 Chronic interstitial cystitis Bronchitis, mucopurulent recurrent (HCC) Mucopurulent chronic bronchitis Diabetes mellitus type II (HCC) Hepatic steatosis Other chronic nonalcoholic liver disease Hypothyroidism, unspecified type Lupus anticoagulant disorder (HCC) Primary hypercoagulable state Primary testicular hypogonadism Other testicular hypofunction Obesity (BMI 30-39.9) Obesity, unspecified Pre-operative examination- Primary Preoperative examination, unspecified History of pulmonary embolism Personal history of pulmonary embolism Polycythemia, secondary Left hemiparesis (HCC) Hemiplegia, unspecified, affecting unspecified side MARC (obstructive sleep apnea) Obstructive sleep apnea (adult) (pediatric) Chronic interstitial cystitis 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 Thrombocytopenia (HCC) Thrombocytopenia, unspecified Splenomegaly Primary testicular hypogonadism Other testicular hypofunction Personal history of DVT (deep vein thrombosis) Personal history of venous thrombosis and embolism Obesity (BMI 30-39.9) Obesity, unspecified Lupus anticoagulant disorder (HCC) Primary hypercoagulable state Hypothyroidism, unspecified type Hepatic steatosis Other chronic nonalcoholic liver disease Diabetes mellitus type II (HCC) Secondary esophageal varices without bleeding (HCC) Esophageal varices without mention of bleeding in diseases classified elsewhere Hyperlipidemia, unspecified hyperlipidemia type- Primary Diabetes mellitus type II (HCC) Encounter for immunization Need for other specified prophylactic vaccination against single bacterial disease Hypothyroidism, unspecified type Cirrhosis, 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 Splenomegaly Neutropenia, unspecified type (HCC) MARC (obstructive sleep apnea) Obstructive sleep apnea (adult) (pediatric) Lupus anticoagulant disorder (HCC) Primary hypercoagulable state Recurrent deep vein thrombosis (DVT) (HCC) Chronic insomnia Insomnia, unspecified [facility] Diagnosis Pre-operative examination- Primary Preoperative examination, unspecified Urinary retention Retention of urine, unspecified 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 Splenomegaly Lupus anticoagulant disorder (HCC) Primary hypercoagulable state Thrombocytopenia Thrombocytopenia, unspecified History of pulmonary embolism Personal history of pulmonary embolism MARC (obstructive sleep apnea) Obstructive sleep apnea (adult) (pediatric) Hepatic steatosis Other chronic nonalcoholic liver disease Left hemiparesis (HCC) Hemiplegia, unspecified, affecting unspecified side Primary testicular hypogonadism Other testicular hypofunction Obesity (BMI 30-39.9) Obesity, unspecified Prediabetes Other abnormal glucose Preoperative examination- Primary Preoperative examination, unspecified Encounter for screening colonoscopy Special screening for malignant neoplasms, colon Portal hypertension with esophageal varices (HCC) Portal hypertension Diabetes mellitus type II (HCC) MARC (obstructive sleep apnea) Obstructive sleep apnea (adult) (pediatric) Left hemiparesis (HCC) Hemiplegia, unspecified, affecting unspecified side Splenomegaly Thrombocytopenia Thrombocytopenia, unspecified Lupus anticoagulant disorder (HCC) Primary hypercoagulable state History of pulmonary embolism Personal history of pulmonary embolism Personal history of DVT (deep vein thrombosis) Personal history of venous thrombosis and embolism Hypothyroidism, unspecified type Hepatic steatosis Other chronic nonalcoholic liver disease Chronic interstitial cystitis 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 Bronchitis, mucopurulent recurrent (HCC) 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 Other testicular hypofunction Obesity (BMI 30-39.9) Obesity, unspecified Pre-operative examination- Primary Preoperative examination, unspecified 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 Personal history of DVT (deep vein thrombosis) Personal history of venous thrombosis and embolism Splenomegaly Thrombocytopenia Thrombocytopenia, unspecified History of pulmonary embolism Personal history of pulmonary embolism Polycythemia, secondary Left hemiparesis (HCC) Hemiplegia, unspecified, affecting unspecified side MARC (obstructive sleep apnea) Obstructive sleep apnea (adult) (pediatric) 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 Chronic interstitial cystitis Bronchitis, mucopurulent recurrent (HCC) Mucopurulent chronic bronchitis Diabetes mellitus type II (HCC) Hepatic steatosis Other chronic nonalcoholic liver disease Hypothyroidism, unspecified type Lupus anticoagulant disorder (HCC) Primary hypercoagulable state Primary testicular hypogonadism Other testicular hypofunction Obesity (BMI 30-39.9) Obesity, unspecified Pre-operative examination- Primary Preoperative examination, unspecified History of pulmonary embolism Personal history of pulmonary embolism Polycythemia, secondary Left hemiparesis (HCC) Hemiplegia, unspecified, affecting unspecified side MARC (obstructive sleep apnea) Obstructive sleep apnea (adult) (pediatric) Chronic interstitial cystitis 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 Thrombocytopenia Thrombocytopenia, unspecified Splenomegaly Primary testicular hypogonadism Other testicular hypofunction Personal history of DVT (deep vein thrombosis) Personal history of venous thrombosis and embolism Obesity (BMI 30-39.9) Obesity, unspecified Lupus anticoagulant disorder (HCC) Primary hypercoagulable state Hypothyroidism, unspecified type Hepatic steatosis Other chronic nonalcoholic liver disease Diabetes mellitus type II (HCC) Secondary esophageal varices without bleeding (HCC) Esophageal varices without mention of bleeding in diseases classified elsewhere Acute cough- Primary Acute cough documented in this encounter [facility]* Diagnosis Pre-operative examination- Primary Preoperative examination, unspecified Urinary retention Retention of urine, unspecified 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 Splenomegaly Lupus anticoagulant disorder (HCC) Primary hypercoagulable state Thrombocytopenia Thrombocytopenia, unspecified History of pulmonary embolism Personal history of pulmonary embolism MARC (obstructive sleep apnea) Obstructive sleep apnea (adult) (pediatric) Hepatic steatosis Other chronic nonalcoholic liver disease Left hemiparesis (HCC) Hemiplegia, unspecified, affecting unspecified side Primary testicular hypogonadism Other testicular hypofunction Obesity (BMI 30-39.9) Obesity, unspecified Prediabetes Other abnormal glucose Preoperative examination- Primary Preoperative examination, unspecified Encounter for screening colonoscopy Special screening for malignant neoplasms, colon Portal hypertension with esophageal varices (HCC) Portal hypertension Diabetes mellitus type II (HCC) MARC (obstructive sleep apnea) Obstructive sleep apnea (adult) (pediatric) Left hemiparesis (HCC) Hemiplegia, unspecified, affecting unspecified side Splenomegaly Thrombocytopenia Thrombocytopenia, unspecified Lupus anticoagulant disorder (HCC) Primary hypercoagulable state History of pulmonary embolism Personal history of pulmonary embolism Personal history of DVT (deep vein thrombosis) Personal history of venous thrombosis and embolism Hypothyroidism, unspecified type Hepatic steatosis Other chronic nonalcoholic liver disease Chronic interstitial cystitis 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 Bronchitis, mucopurulent recurrent (HCC) 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 Other testicular hypofunction Obesity (BMI 30-39.9) Obesity, unspecified Pre-operative examination- Primary Preoperative examination, unspecified 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 Personal history of DVT (deep vein thrombosis) Personal history of venous thrombosis and embolism Splenomegaly Thrombocytopenia Thrombocytopenia, unspecified History of pulmonary embolism Personal history of pulmonary embolism Polycythemia, secondary Left hemiparesis (HCC) Hemiplegia, unspecified, affecting unspecified side MARC (obstructive sleep apnea) Obstructive sleep apnea (adult) (pediatric) 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 Chronic interstitial cystitis Bronchitis, mucopurulent recurrent (HCC) Mucopurulent chronic bronchitis Diabetes mellitus type II (HCC) Hepatic steatosis Other chronic nonalcoholic liver disease Hypothyroidism, unspecified type Lupus anticoagulant disorder (HCC) Primary hypercoagulable state Primary testicular hypogonadism Other testicular hypofunction Obesity (BMI 30-39.9) Obesity, unspecified Pre-operative examination- Primary Preoperative examination, unspecified History of pulmonary embolism Personal history of pulmonary embolism Polycythemia, secondary Left hemiparesis (HCC) Hemiplegia, unspecified, affecting unspecified side MARC (obstructive sleep apnea) Obstructive sleep apnea (adult) (pediatric) Chronic interstitial cystitis 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 Thrombocytopenia Thrombocytopenia, unspecified Splenomegaly Primary testicular hypogonadism Other testicular hypofunction Personal history of DVT (deep vein thrombosis) Personal history of venous thrombosis and embolism Obesity (BMI 30-39.9) Obesity, unspecified Lupus anticoagulant disorder (HCC) Primary hypercoagulable state Hypothyroidism, unspecified type Hepatic steatosis Other chronic nonalcoholic liver disease Diabetes mellitus type II (HCC) Secondary esophageal varices without bleeding (HCC) Esophageal varices without mention of bleeding in diseases classified elsewhere Acute cough documented in this encounter [facility]* Diagnosis Pre-operative examination- Primary Preoperative examination, unspecified Urinary retention Retention of urine, unspecified 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 Splenomegaly Lupus anticoagulant disorder (HCC) Primary hypercoagulable state Thrombocytopenia Thrombocytopenia, unspecified History of pulmonary embolism Personal history of pulmonary embolism MARC (obstructive sleep apnea) Obstructive sleep apnea (adult) (pediatric) Hepatic steatosis Other chronic nonalcoholic liver disease Left hemiparesis (HCC) Hemiplegia, unspecified, affecting unspecified side Primary testicular hypogonadism Other testicular hypofunction Obesity (BMI 30-39.9) Obesity, unspecified Prediabetes Other abnormal glucose Preoperative examination- Primary Preoperative examination, unspecified Encounter for screening colonoscopy Special screening for malignant neoplasms, colon Portal hypertension with esophageal varices (HCC) Portal hypertension Diabetes mellitus type II (HCC) MARC (obstructive sleep apnea) Obstructive sleep apnea (adult) (pediatric) Left hemiparesis (HCC) Hemiplegia, unspecified, affecting unspecified side Splenomegaly Thrombocytopenia Thrombocytopenia, unspecified Lupus anticoagulant disorder (HCC) Primary hypercoagulable state History of pulmonary embolism Personal history of pulmonary embolism Personal history of DVT (deep vein thrombosis) Personal history of venous thrombosis and embolism Hypothyroidism, unspecified type Hepatic steatosis Other chronic nonalcoholic liver disease Chronic interstitial cystitis 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 Bronchitis, mucopurulent recurrent (HCC) 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 Other testicular hypofunction Obesity (BMI 30-39.9) Obesity, unspecified Pre-operative examination- Primary Preoperative examination, unspecified 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 Personal history of DVT (deep vein thrombosis) Personal history of venous thrombosis and embolism Splenomegaly Thrombocytopenia Thrombocytopenia, unspecified History of pulmonary embolism Personal history of pulmonary embolism Polycythemia, secondary Left hemiparesis (HCC) Hemiplegia, unspecified, affecting unspecified side MARC (obstructive sleep apnea) Obstructive sleep apnea (adult) (pediatric) 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 Chronic interstitial cystitis Bronchitis, mucopurulent recurrent (HCC) Mucopurulent chronic bronchitis Diabetes mellitus type II (HCC) Hepatic steatosis Other chronic nonalcoholic liver disease Hypothyroidism, unspecified type Lupus anticoagulant disorder (HCC) Primary hypercoagulable state Primary testicular hypogonadism Other testicular hypofunction Obesity (BMI 30-39.9) Obesity, unspecified Pre-operative examination- Primary Preoperative examination, unspecified History of pulmonary embolism Personal history of pulmonary embolism Polycythemia, secondary Left hemiparesis (HCC) Hemiplegia, unspecified, affecting unspecified side MARC (obstructive sleep apnea) Obstructive sleep apnea (adult) (pediatric) Chronic interstitial cystitis 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 Thrombocytopenia Thrombocytopenia, unspecified Splenomegaly Primary testicular hypogonadism Other testicular hypofunction Personal history of DVT (deep vein thrombosis) Personal history of venous thrombosis and embolism Obesity (BMI 30-39.9) Obesity, unspecified Lupus anticoagulant disorder (HCC) Primary hypercoagulable state Hypothyroidism, unspecified type Hepatic steatosis Other chronic nonalcoholic liver disease Diabetes mellitus type II (HCC) Secondary esophageal varices without bleeding (HCC) Esophageal varices without mention of bleeding in diseases classified elsewhere Cirrhosis, nonalcoholic (HCC)- Primary Cirrhosis of 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 Abdominal swelling, generalized Abdominal or pelvic swelling, mass, or lump, generalized Splenomegaly Dark stools Nonspecific abnormal finding in stool contents [facility] Diagnosis Pre-operative examination- Primary Preoperative examination, unspecified Urinary retention Retention of urine, unspecified 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 Splenomegaly Lupus anticoagulant disorder (HCC) Primary hypercoagulable state Thrombocytopenia Thrombocytopenia, unspecified History of pulmonary embolism Personal history of pulmonary embolism MARC (obstructive sleep apnea) Obstructive sleep apnea (adult) (pediatric) Hepatic steatosis Other chronic nonalcoholic liver disease Left hemiparesis (HCC) Hemiplegia, unspecified, affecting unspecified side Primary testicular hypogonadism Other testicular hypofunction Obesity (BMI 30-39.9) Obesity, unspecified Prediabetes Other abnormal glucose Preoperative examination- Primary Preoperative examination, unspecified Encounter for screening colonoscopy Special screening for malignant neoplasms, colon Portal hypertension with esophageal varices (HCC) Portal hypertension Diabetes mellitus type II (HCC) MARC (obstructive sleep apnea) Obstructive sleep apnea (adult) (pediatric) Left hemiparesis (HCC) Hemiplegia, unspecified, affecting unspecified side Splenomegaly Thrombocytopenia Thrombocytopenia, unspecified Lupus anticoagulant disorder (HCC) Primary hypercoagulable state History of pulmonary embolism Personal history of pulmonary embolism Personal history of DVT (deep vein thrombosis) Personal history of venous thrombosis and embolism Hypothyroidism, unspecified type Hepatic steatosis Other chronic nonalcoholic liver disease Chronic interstitial cystitis 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 Bronchitis, mucopurulent recurrent (HCC) 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 Other testicular hypofunction Obesity (BMI 30-39.9) Obesity, unspecified Pre-operative examination- Primary Preoperative examination, unspecified 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 Personal history of DVT (deep vein thrombosis) Personal history of venous thrombosis and embolism Splenomegaly Thrombocytopenia Thrombocytopenia, unspecified History of pulmonary embolism Personal history of pulmonary embolism Polycythemia, secondary Left hemiparesis (HCC) Hemiplegia, unspecified, affecting unspecified side MARC (obstructive sleep apnea) Obstructive sleep apnea (adult) (pediatric) 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 Chronic interstitial cystitis Bronchitis, mucopurulent recurrent (HCC) Mucopurulent chronic bronchitis Diabetes mellitus type II (HCC) Hepatic steatosis Other chronic nonalcoholic liver disease Hypothyroidism, unspecified type Lupus anticoagulant disorder (HCC) Primary hypercoagulable state Primary testicular hypogonadism Other testicular hypofunction Obesity (BMI 30-39.9) Obesity, unspecified Pre-operative examination- Primary Preoperative examination, unspecified History of pulmonary embolism Personal history of pulmonary embolism Polycythemia, secondary Left hemiparesis (HCC) Hemiplegia, unspecified, affecting unspecified side MARC (obstructive sleep apnea) Obstructive sleep apnea (adult) (pediatric) Chronic interstitial cystitis 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 Thrombocytopenia Thrombocytopenia, unspecified Splenomegaly Primary testicular hypogonadism Other testicular hypofunction Personal history of DVT (deep vein thrombosis) Personal history of venous thrombosis and embolism Obesity (BMI 30-39.9) Obesity, unspecified Lupus anticoagulant disorder (HCC) Primary hypercoagulable state Hypothyroidism, unspecified type Hepatic steatosis Other chronic nonalcoholic liver disease Diabetes mellitus type II (HCC) Secondary esophageal varices without bleeding (HCC) Esophageal varices without mention of bleeding in diseases classified elsewhere Cirrhosis of liver with ascites, unspecified hepatic cirrhosis type (HCC)- Primary Portal hypertension (HCC) Portal hypertension Secondary esophageal varices without bleeding (HCC) Esophageal varices without mention of bleeding in diseases classified elsewhere Portal vein thrombosis [facility] Diagnosis Pre-operative examination- Primary Preoperative examination, unspecified Urinary retention Retention of urine, unspecified 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 Splenomegaly Lupus anticoagulant disorder (HCC) Primary hypercoagulable state Thrombocytopenia Thrombocytopenia, unspecified History of pulmonary embolism Personal history of pulmonary embolism MARC (obstructive sleep apnea) Obstructive sleep apnea (adult) (pediatric) Hepatic steatosis Other chronic nonalcoholic liver disease Left hemiparesis (HCC) Hemiplegia, unspecified, affecting unspecified side Primary testicular hypogonadism Other testicular hypofunction Obesity (BMI 30-39.9) Obesity, unspecified Prediabetes Other abnormal glucose Preoperative examination- Primary Preoperative examination, unspecified Encounter for screening colonoscopy Special screening for malignant neoplasms, colon Portal hypertension with esophageal varices (HCC) Portal hypertension Diabetes mellitus type II (HCC) MARC (obstructive sleep apnea) Obstructive sleep apnea (adult) (pediatric) Left hemiparesis (HCC) Hemiplegia, unspecified, affecting unspecified side Splenomegaly Thrombocytopenia Thrombocytopenia, unspecified Lupus anticoagulant disorder (HCC) Primary hypercoagulable state History of pulmonary embolism Personal history of pulmonary embolism Personal history of DVT (deep vein thrombosis) Personal history of venous thrombosis and embolism Hypothyroidism, unspecified type Hepatic steatosis Other chronic nonalcoholic liver disease Chronic interstitial cystitis 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 Bronchitis, mucopurulent recurrent (HCC) 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 Other testicular hypofunction Obesity (BMI 30-39.9) Obesity, unspecified Pre-operative examination- Primary Preoperative examination, unspecified 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 Personal history of DVT (deep vein thrombosis) Personal history of venous thrombosis and embolism Splenomegaly Thrombocytopenia Thrombocytopenia, unspecified History of pulmonary embolism Personal history of pulmonary embolism Polycythemia, secondary Left hemiparesis (HCC) Hemiplegia, unspecified, affecting unspecified side MARC (obstructive sleep apnea) Obstructive sleep apnea (adult) (pediatric) 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 Chronic interstitial cystitis Bronchitis, mucopurulent recurrent (HCC) Mucopurulent chronic bronchitis Diabetes mellitus type II (HCC) Hepatic steatosis Other chronic nonalcoholic liver disease Hypothyroidism, unspecified type Lupus anticoagulant disorder (HCC) Primary hypercoagulable state Primary testicular hypogonadism Other testicular hypofunction Obesity (BMI 30-39.9) Obesity, unspecified Pre-operative examination- Primary Preoperative examination, unspecified History of pulmonary embolism Personal history of pulmonary embolism Polycythemia, secondary Left hemiparesis (HCC) Hemiplegia, unspecified, affecting unspecified side MARC (obstructive sleep apnea) Obstructive sleep apnea (adult) (pediatric) Chronic interstitial cystitis 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 Thrombocytopenia Thrombocytopenia, unspecified Splenomegaly Primary testicular hypogonadism Other testicular hypofunction Personal history of DVT (deep vein thrombosis) Personal history of venous thrombosis and embolism Obesity (BMI 30-39.9) Obesity, unspecified Lupus anticoagulant disorder (HCC) Primary hypercoagulable state Hypothyroidism, unspecified type Hepatic steatosis Other chronic nonalcoholic liver disease Diabetes mellitus type II (HCC) Secondary esophageal varices without bleeding (HCC) Esophageal varices without mention of bleeding in diseases classified elsewhere Cirrhosis, 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 Splenomegaly Abdominal swelling, generalized Abdominal or pelvic swelling, mass, or lump, generalized documented in this encounter [facility] note* Diagnosis Pre-operative examination- Primary Preoperative examination, unspecified Urinary retention Retention of urine, unspecified 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 Splenomegaly Lupus anticoagulant disorder (HCC) Primary hypercoagulable state Thrombocytopenia Thrombocytopenia, unspecified History of pulmonary embolism Personal history of pulmonary embolism MARC (obstructive sleep apnea) Obstructive sleep apnea (adult) (pediatric) Hepatic steatosis Other chronic nonalcoholic liver disease Left hemiparesis (HCC) Hemiplegia, unspecified, affecting unspecified side Primary testicular hypogonadism Other testicular hypofunction Obesity (BMI 30-39.9) Obesity, unspecified Prediabetes Other abnormal glucose Preoperative examination- Primary Preoperative examination, unspecified Encounter for screening colonoscopy Special screening for malignant neoplasms, colon Portal hypertension with esophageal varices (HCC) Portal hypertension Diabetes mellitus type II (HCC) MARC (obstructive sleep apnea) Obstructive sleep apnea (adult) (pediatric) Left hemiparesis (HCC) Hemiplegia, unspecified, affecting unspecified side Splenomegaly Thrombocytopenia Thrombocytopenia, unspecified Lupus anticoagulant disorder (HCC) Primary hypercoagulable state History of pulmonary embolism Personal history of pulmonary embolism Personal history of DVT (deep vein thrombosis) Personal history of venous thrombosis and embolism Hypothyroidism, unspecified type Hepatic steatosis Other chronic nonalcoholic liver disease Chronic interstitial cystitis 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 Bronchitis, mucopurulent recurrent (HCC) 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 Other testicular hypofunction Obesity (BMI 30-39.9) Obesity, unspecified Pre-operative examination- Primary Preoperative examination, unspecified 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 Personal history of DVT (deep vein thrombosis) Personal history of venous thrombosis and embolism Splenomegaly Thrombocytopenia Thrombocytopenia, unspecified History of pulmonary embolism Personal history of pulmonary embolism Polycythemia, secondary Left hemiparesis (HCC) Hemiplegia, unspecified, affecting unspecified side MARC (obstructive sleep apnea) Obstructive sleep apnea (adult) (pediatric) 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 Chronic interstitial cystitis Bronchitis, mucopurulent recurrent (HCC) Mucopurulent chronic bronchitis Diabetes mellitus type II (HCC) Hepatic steatosis Other chronic nonalcoholic liver disease Hypothyroidism, unspecified type Lupus anticoagulant disorder (HCC) Primary hypercoagulable state Primary testicular hypogonadism Other testicular hypofunction Obesity (BMI 30-39.9) Obesity, unspecified Pre-operative examination- Primary Preoperative examination, unspecified History of pulmonary embolism Personal history of pulmonary embolism Polycythemia, secondary Left hemiparesis (HCC) Hemiplegia, unspecified, affecting unspecified side MARC (obstructive sleep apnea) Obstructive sleep apnea (adult) (pediatric) Chronic interstitial cystitis 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 Thrombocytopenia Thrombocytopenia, unspecified Splenomegaly Primary testicular hypogonadism Other testicular hypofunction Personal history of DVT (deep vein thrombosis) Personal history of venous thrombosis and embolism Obesity (BMI 30-39.9) Obesity, unspecified Lupus anticoagulant disorder (HCC) Primary hypercoagulable state Hypothyroidism, unspecified type Hepatic steatosis Other chronic nonalcoholic liver disease Diabetes mellitus type II (HCC) Secondary esophageal varices without bleeding (HCC) Esophageal varices without mention of bleeding in diseases classified elsewhere Positive fecal occult blood test- Primary Nonspecific abnormal finding in stool contents [facility] Onset Date Resolution Status Admit Date Decompensated cirrhosis acute J une 2024 11:04am [place] [facility] [employer] Work Phone: Evaluation note* Diagnosis Pre-operative examination- Primary Preoperative examination, unspecified Urinary retention Retention of urine, unspecified 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 Splenomegaly Lupus anticoagulant disorder (HCC) Primary hypercoagulable state Thrombocytopenia Thrombocytopenia, unspecified History of pulmonary embolism Personal history of pulmonary embolism MARC (obstructive sleep apnea) Obstructive sleep apnea (adult) (pediatric) Hepatic steatosis Other chronic nonalcoholic liver disease Left hemiparesis (HCC) Hemiplegia, unspecified, affecting unspecified side Primary testicular hypogonadism Other testicular hypofunction Obesity (BMI 30-39.9) Obesity, unspecified Prediabetes Other abnormal glucose Preoperative examination- Primary Preoperative examination, unspecified Encounter for screening colonoscopy Special screening for malignant neoplasms, colon Portal hypertension with esophageal varices (HCC) Portal hypertension Diabetes mellitus type II (HCC) MARC (obstructive sleep apnea) Obstructive sleep apnea (adult) (pediatric) Left hemiparesis (HCC) Hemiplegia, unspecified, affecting unspecified side Splenomegaly Thrombocytopenia Thrombocytopenia, unspecified Lupus anticoagulant disorder (HCC) Primary hypercoagulable state History of pulmonary embolism Personal history of pulmonary embolism Personal history of DVT (deep vein thrombosis) Personal history of venous thrombosis and embolism Hypothyroidism, unspecified type Hepatic steatosis Other chronic nonalcoholic liver disease Chronic interstitial cystitis 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 Bronchitis, mucopurulent recurrent (HCC) 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 Other testicular hypofunction Obesity (BMI 30-39.9) Obesity, unspecified Pre-operative examination- Primary Preoperative examination, unspecified 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 Personal history of DVT (deep vein thrombosis) Personal history of venous thrombosis and embolism Splenomegaly Thrombocytopenia Thrombocytopenia, unspecified History of pulmonary embolism Personal history of pulmonary embolism Polycythemia, secondary Left hemiparesis (HCC) Hemiplegia, unspecified, affecting unspecified side MARC (obstructive sleep apnea) Obstructive sleep apnea (adult) (pediatric) 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 Chronic interstitial cystitis Bronchitis, mucopurulent recurrent (HCC) Mucopurulent chronic bronchitis Diabetes mellitus type II (HCC) Hepatic steatosis Other chronic nonalcoholic liver disease Hypothyroidism, unspecified type Lupus anticoagulant disorder (HCC) Primary hypercoagulable state Primary testicular hypogonadism Other testicular hypofunction Obesity (BMI 30-39.9) Obesity, unspecified Pre-operative examination- Primary Preoperative examination, unspecified History of pulmonary embolism Personal history of pulmonary embolism Polycythemia, secondary Left hemiparesis (HCC) Hemiplegia, unspecified, affecting unspecified side MARC (obstructive sleep apnea) Obstructive sleep apnea (adult) (pediatric) Chronic interstitial cystitis 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 Thrombocytopenia Thrombocytopenia, unspecified Splenomegaly Primary testicular hypogonadism Other testicular hypofunction Personal history of DVT (deep vein thrombosis) Personal history of venous thrombosis and embolism Obesity (BMI 30-39.9) Obesity, unspecified Lupus anticoagulant disorder (HCC) Primary hypercoagulable state Hypothyroidism, unspecified type Hepatic steatosis Other chronic nonalcoholic liver disease Diabetes mellitus type II (HCC) Secondary esophageal varices without bleeding (HCC) Esophageal varices without mention of bleeding in diseases classified elsewhere Chronic insomnia Insomnia, unspecified [facility] Diagnosis Pre-operative examination- Primary Preoperative examination, unspecified Urinary retention Retention of urine, unspecified 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 Splenomegaly Lupus anticoagulant disorder (HCC) Primary hypercoagulable state Thrombocytopenia Thrombocytopenia, unspecified History of pulmonary embolism Personal history of pulmonary embolism MARC (obstructive sleep apnea) Obstructive sleep apnea (adult) (pediatric) Hepatic steatosis Other chronic nonalcoholic liver disease Left hemiparesis (HCC) Hemiplegia, unspecified, affecting unspecified side Primary testicular hypogonadism Other testicular hypofunction Obesity (BMI 30-39.9) Obesity, unspecified Prediabetes Other abnormal glucose Preoperative examination- Primary Preoperative examination, unspecified Encounter for screening colonoscopy Special screening for malignant neoplasms, colon Portal hypertension with esophageal varices (HCC) Portal hypertension Diabetes mellitus type II (HCC) MARC (obstructive sleep apnea) Obstructive sleep apnea (adult) (pediatric) Left hemiparesis (HCC) Hemiplegia, unspecified, affecting unspecified side Splenomegaly Thrombocytopenia Thrombocytopenia, unspecified Lupus anticoagulant disorder (HCC) Primary hypercoagulable state History of pulmonary embolism Personal history of pulmonary embolism Personal history of DVT (deep vein thrombosis) Personal history of venous thrombosis and embolism Hypothyroidism, unspecified type Hepatic steatosis Other chronic nonalcoholic liver disease Chronic interstitial cystitis 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 Bronchitis, mucopurulent recurrent (HCC) 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 Other testicular hypofunction Obesity (BMI 30-39.9) Obesity, unspecified Pre-operative examination- Primary Preoperative examination, unspecified 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 Personal history of DVT (deep vein thrombosis) Personal history of venous thrombosis and embolism Splenomegaly Thrombocytopenia Thrombocytopenia, unspecified History of pulmonary embolism Personal history of pulmonary embolism Polycythemia, secondary Left hemiparesis (HCC) Hemiplegia, unspecified, affecting unspecified side MARC (obstructive sleep apnea) Obstructive sleep apnea (adult) (pediatric) 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 Chronic interstitial cystitis Bronchitis, mucopurulent recurrent (HCC) Mucopurulent chronic bronchitis Diabetes mellitus type II (HCC) Hepatic steatosis Other chronic nonalcoholic liver disease Hypothyroidism, unspecified type Lupus anticoagulant disorder (HCC) Primary hypercoagulable state Primary testicular hypogonadism Other testicular hypofunction Obesity (BMI 30-39.9) Obesity, unspecified Pre-operative examination- Primary Preoperative examination, unspecified History of pulmonary embolism Personal history of pulmonary embolism Polycythemia, secondary Left hemiparesis (HCC) Hemiplegia, unspecified, affecting unspecified side MARC (obstructive sleep apnea) Obstructive sleep apnea (adult) (pediatric) Chronic interstitial cystitis 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 Thrombocytopenia Thrombocytopenia, unspecified Splenomegaly Primary testicular hypogonadism Other testicular hypofunction Personal history of DVT (deep vein thrombosis) Personal history of venous thrombosis and embolism Obesity (BMI 30-39.9) Obesity, unspecified Lupus anticoagulant disorder (HCC) Primary hypercoagulable state Hypothyroidism, unspecified type Hepatic steatosis Other chronic nonalcoholic liver disease Diabetes mellitus type II (HCC) Secondary esophageal varices without bleeding (HCC) Esophageal varices without mention of bleeding in diseases classified elsewhere Decompensated cirrhosis (HCC)- Primary [facility] Diagnosis Pre-operative examination- Primary Preoperative examination, unspecified Urinary retention Retention of urine, unspecified 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 Splenomegaly Lupus anticoagulant disorder (HCC) Primary hypercoagulable state Thrombocytopenia Thrombocytopenia, unspecified History of pulmonary embolism Personal history of pulmonary embolism MARC (obstructive sleep apnea) Obstructive sleep apnea (adult) (pediatric) Hepatic steatosis Other chronic nonalcoholic liver disease Left hemiparesis (HCC) Hemiplegia, unspecified, affecting unspecified side Primary testicular hypogonadism Other testicular hypofunction Obesity (BMI 30-39.9) Obesity, unspecified Prediabetes Other abnormal glucose Preoperative examination- Primary Preoperative examination, unspecified Encounter for screening colonoscopy Special screening for malignant neoplasms, colon Portal hypertension with esophageal varices (HCC) Portal hypertension Diabetes mellitus type II (HCC) MARC (obstructive sleep apnea) Obstructive sleep apnea (adult) (pediatric) Left hemiparesis (HCC) Hemiplegia, unspecified, affecting unspecified side Splenomegaly Thrombocytopenia Thrombocytopenia, unspecified Lupus anticoagulant disorder (HCC) Primary hypercoagulable state History of pulmonary embolism Personal history of pulmonary embolism Personal history of DVT (deep vein thrombosis) Personal history of venous thrombosis and embolism Hypothyroidism, unspecified type Hepatic steatosis Other chronic nonalcoholic liver disease Chronic interstitial cystitis 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 Bronchitis, mucopurulent recurrent (HCC) 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 Other testicular hypofunction Obesity (BMI 30-39.9) Obesity, unspecified Pre-operative examination- Primary Preoperative examination, unspecified 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 Personal history of DVT (deep vein thrombosis) Personal history of venous thrombosis and embolism Splenomegaly Thrombocytopenia Thrombocytopenia, unspecified History of pulmonary embolism Personal history of pulmonary embolism Polycythemia, secondary Left hemiparesis (HCC) Hemiplegia, unspecified, affecting unspecified side MARC (obstructive sleep apnea) Obstructive sleep apnea (adult) (pediatric) 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 Chronic interstitial cystitis Bronchitis, mucopurulent recurrent (HCC) Mucopurulent chronic bronchitis Diabetes mellitus type II (HCC) Hepatic steatosis Other chronic nonalcoholic liver disease Hypothyroidism, unspecified type Lupus anticoagulant disorder (HCC) Primary hypercoagulable state Primary testicular hypogonadism Other testicular hypofunction Obesity (BMI 30-39.9) Obesity, unspecified Pre-operative examination- Primary Preoperative examination, unspecified History of pulmonary embolism Personal history of pulmonary embolism Polycythemia, secondary Left hemiparesis (HCC) Hemiplegia, unspecified, affecting unspecified side MARC (obstructive sleep apnea) Obstructive sleep apnea (adult) (pediatric) Chronic interstitial cystitis 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 Thrombocytopenia Thrombocytopenia, unspecified Splenomegaly Primary testicular hypogonadism Other testicular hypofunction Personal history of DVT (deep vein thrombosis) Personal history of venous thrombosis and embolism Obesity (BMI 30-39.9) Obesity, unspecified Lupus anticoagulant disorder (HCC) Primary hypercoagulable state Hypothyroidism, unspecified type Hepatic steatosis Other chronic nonalcoholic liver disease Diabetes mellitus type II (HCC) Secondary esophageal varices without bleeding (HCC) Esophageal varices without mention of bleeding in diseases classified elsewhere Lupus anticoagulant disorder (HCC)- Primary Primary hypercoagulable state Recurrent deep vein thrombosis (DVT) (HCC) Anemia, unspecified type Thrombocytopenia Thrombocytopenia, unspecified Splenomegaly [facility] Diagnosis Pre-operative examination- Primary Preoperative examination, unspecified Urinary retention Retention of urine, unspecified 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 Splenomegaly Lupus anticoagulant disorder (HCC) Primary hypercoagulable state Thrombocytopenia Thrombocytopenia, unspecified History of pulmonary embolism Personal history of pulmonary embolism MARC (obstructive sleep apnea) Obstructive sleep apnea (adult) (pediatric) Hepatic steatosis Other chronic nonalcoholic liver disease Left hemiparesis (HCC) Hemiplegia, unspecified, affecting unspecified side Primary testicular hypogonadism Other testicular hypofunction Obesity (BMI 30-39.9) Obesity, unspecified Prediabetes Other abnormal glucose Preoperative examination- Primary Preoperative examination, unspecified Encounter for screening colonoscopy Special screening for malignant neoplasms, colon Portal hypertension with esophageal varices (HCC) Portal hypertension Diabetes mellitus type II (HCC) MARC (obstructive sleep apnea) Obstructive sleep apnea (adult) (pediatric) Left hemiparesis (HCC) Hemiplegia, unspecified, affecting unspecified side Splenomegaly Thrombocytopenia Thrombocytopenia, unspecified Lupus anticoagulant disorder (HCC) Primary hypercoagulable state History of pulmonary embolism Personal history of pulmonary embolism Personal history of DVT (deep vein thrombosis) Personal history of venous thrombosis and embolism Hypothyroidism, unspecified type Hepatic steatosis Other chronic nonalcoholic liver disease Chronic interstitial cystitis 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 Bronchitis, mucopurulent recurrent (HCC) 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 Other testicular hypofunction Obesity (BMI 30-39.9) Obesity, unspecified Pre-operative examination- Primary Preoperative examination, unspecified 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 Personal history of DVT (deep vein thrombosis) Personal history of venous thrombosis and embolism Splenomegaly Thrombocytopenia Thrombocytopenia, unspecified History of pulmonary embolism Personal history of pulmonary embolism Polycythemia, secondary Left hemiparesis (HCC) Hemiplegia, unspecified, affecting unspecified side MARC (obstructive sleep apnea) Obstructive sleep apnea (adult) (pediatric) 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 Chronic interstitial cystitis Bronchitis, mucopurulent recurrent (HCC) Mucopurulent chronic bronchitis Diabetes mellitus type II (HCC) Hepatic steatosis Other chronic nonalcoholic liver disease Hypothyroidism, unspecified type Lupus anticoagulant disorder (HCC) Primary hypercoagulable state Primary testicular hypogonadism Other testicular hypofunction Obesity (BMI 30-39.9) Obesity, unspecified Pre-operative examination- Primary Preoperative examination, unspecified History of pulmonary embolism Personal history of pulmonary embolism Polycythemia, secondary Left hemiparesis (HCC) Hemiplegia, unspecified, affecting unspecified side MARC (obstructive sleep apnea) Obstructive sleep apnea (adult) (pediatric) Chronic interstitial cystitis 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 Thrombocytopenia Thrombocytopenia, unspecified Splenomegaly Primary testicular hypogonadism Other testicular hypofunction Personal history of DVT (deep vein thrombosis) Personal history of venous thrombosis and embolism Obesity (BMI 30-39.9) Obesity, unspecified Lupus anticoagulant disorder (HCC) Primary hypercoagulable state Hypothyroidism, unspecified type Hepatic steatosis Other chronic nonalcoholic liver disease Diabetes mellitus type II (HCC) Secondary esophageal varices without bleeding (HCC) Esophageal varices without mention of bleeding in diseases classified elsewhere Hyperlipidemia, unspecified hyperlipidemia type [facility] Pre-operative examination- Primary Preoperative examination, unspecified Urinary retention Retention of urine, unspecified 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 Splenomegaly Lupus anticoagulant disorder (HCC) Primary hypercoagulable state Thrombocytopenia Thrombocytopenia, unspecified History of pulmonary embolism Personal history of pulmonary embolism MARC (obstructive sleep apnea) Obstructive sleep apnea (adult) (pediatric) Hepatic steatosis Other chronic nonalcoholic liver disease Left hemiparesis (HCC) Hemiplegia, unspecified, affecting unspecified side Primary testicular hypogonadism Other testicular hypofunction Obesity (BMI 30-39.9) Obesity, unspecified Prediabetes Other abnormal glucose Preoperative examination- Primary Preoperative examination, unspecified Encounter for screening colonoscopy Special screening for malignant neoplasms, colon Portal hypertension with esophageal varices (HCC) Portal hypertension Diabetes mellitus type II (HCC) MARC (obstructive sleep apnea) Obstructive sleep apnea (adult) (pediatric) Left hemiparesis (HCC) Hemiplegia, unspecified, affecting unspecified side Splenomegaly Thrombocytopenia Thrombocytopenia, unspecified Lupus anticoagulant disorder (HCC) Primary hypercoagulable state History of pulmonary embolism Personal history of pulmonary embolism Personal history of DVT (deep vein thrombosis) Personal history of venous thrombosis and embolism Hypothyroidism, unspecified type Hepatic steatosis Other chronic nonalcoholic liver disease Chronic interstitial cystitis 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 Bronchitis, mucopurulent recurrent (HCC) 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 Other testicular hypofunction Obesity (BMI 30-39.9) Obesity, unspecified Pre-operative examination- Primary Preoperative examination, unspecified 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 Personal history of DVT (deep vein thrombosis) Personal history of venous thrombosis and embolism Splenomegaly Thrombocytopenia Thrombocytopenia, unspecified History of pulmonary embolism Personal history of pulmonary embolism Polycythemia, secondary Left hemiparesis (HCC) Hemiplegia, unspecified, affecting unspecified side MARC (obstructive sleep apnea) Obstructive sleep apnea (adult) (pediatric) 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 Chronic interstitial cystitis Bronchitis, mucopurulent recurrent (HCC) Mucopurulent chronic bronchitis Diabetes mellitus type II (HCC) Hepatic steatosis Other chronic nonalcoholic liver disease Hypothyroidism, unspecified type Lupus anticoagulant disorder (HCC) Primary hypercoagulable state Primary testicular hypogonadism Other testicular hypofunction Obesity (BMI 30-39.9) Obesity, unspecified Pre-operative examination- Primary Preoperative examination, unspecified History of pulmonary embolism Personal history of pulmonary embolism Polycythemia, secondary Left hemiparesis (HCC) Hemiplegia, unspecified, affecting unspecified side MARC (obstructive sleep apnea) Obstructive sleep apnea (adult) (pediatric) Chronic interstitial cystitis 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 Thrombocytopenia Thrombocytopenia, unspecified Splenomegaly Primary testicular hypogonadism Other testicular hypofunction Personal history of DVT (deep vein thrombosis) Personal history of venous thrombosis and embolism Obesity (BMI 30-39.9) Obesity, unspecified Lupus anticoagulant disorder (HCC) Primary hypercoagulable state Hypothyroidism, unspecified type Hepatic steatosis Other chronic nonalcoholic liver disease Diabetes mellitus type II (HCC) Secondary esophageal varices without bleeding (HCC) Esophageal varices without mention of bleeding in diseases classified elsewhere Lupus anticoagulant disorder (HCC) Primary hypercoagulable state Recurrent deep vein thrombosis (DVT) (HCC) documented in this encounter [facility] for referral (narrative)* Outpatient Procedure (Routine) - Pending Review Specialty Diagnoses / Procedures Referred By Contac t Referred To Contact [facility] Diagnoses Postprocedural male urethral stricture Procedures ECG COMPLETE ECG ROUTINE ECG W/LEAST 12 LDS W/I&R Analy Monroy P, HOTHOUSE WORKER.BUSINESS OPERATIONS COORDINATOR [address] [place] [address] [facility] [place] [address] Referral ID Status Reason Start Date Expiration Date Visits Requested Visits Authorized [id number] Pending Review Auto-Generat ed Referral 07/18/2021 06/18/2022 1 1 * Consult, Test, Treat (Routine) - Pending Review Specialty Diagnoses / Procedures Referred By Contac t Referred To Contact Diagnoses Postprocedural male urethral stricture Procedures REFER TO PACC - PRE ANESTHESIA CONSULTATION CLINIC OFFICE/OUTPATIENT [facility] MDM 60-74 MINUTES Analy Monroy, SHYANNE.BUSINESS OPERATIONS COORDINATOR [address] [place], [place] [id number] Referral ID Status Reason Start Date Expiration Date Visits Requested Visits Authorized [id number] Pending Review PCP Requested Referral 07/18/2021 06/18/2022 1 1 T [facility] for referral (narrative)* Diagnostic Procedure Only (Routine) - Authorized Specialty Diagnoses / Procedures Referred By Gerardac t Referred To Contact XR IMAGING Diagnoses Postprocedural bulbous urethral stricture Procedures XR VOIDING CYSTO URETHROGRAM URETHROCYSTOGRAPHY VOIDING RS&I Rainer Solares MD [address] [place] [address] Xr Imaging Referral ID Status Reason Start Date Expiration Date Visits Requested Visits Authorized [id number] Authorized Auto-Generat ed Referral 07/16/2021 08/15/2022 1 1 T [facility] for referral (narrative)* Diagnostic Procedure Only (Routine) - Closed Specialty Diagnoses / Procedures Referred By Jerald pate Referred To Contact XR IMAGING Diagnoses Postprocedural bulbous urethral stricture Procedures XR VOIDING CYSTO URETHROGRAM URETHROCYSTOGRAPHY VOIDING RS&I Rainer Solares MD [address] [place] [address] Xr Imaging Referral ID Status Reason Start Date Expiration Date V isits Requested Visits Authorized [id number] Closed Auto-Generate d Referral 07/16/2021 08/15/2022 1 1 [facility] for referral (narrative)* Diagnostic Procedure Only (Routine) - Pending Review Specialty Diagnoses / Procedures Referred By Jerald t Referred To Contact US IMAGING Diagnoses Thrombocytopenia (HCC) Splenomegaly Polycythemia, secondary Hepatic steatosis Procedures US ABD RT UPPER QUADRANT US ABDOMINAL REAL TIME W/IMAGE LIMITED Dexter Wong DO [address] [place] [address] Us Imaging Referral ID Status Reason Start Date Expiration Date Visits Requested Visits Authorized [id number] Pending Review Auto-Generat ed Referral 2 01/24/2023 1 1 [facility] for referral (narrative)* Outpatient Procedure (Routine) - Pending Review Specialty Diagnoses / Procedures Referred By Contac t Referred To Contact [facility] Diagnoses Splenomegaly Thrombocytopenia (HCC) Portal hypertension with esophageal varices (HCC) Cirrhosis of liver without ascites, unspecified hepatic cirrhosis type (HCC) Procedures EGD DIAGNOSTIC ESOPHAGOGASTRODUODENOSCO PY TRANSORAL DIAGNOSTIC Nasir Riggs MD [address] [place] [address] [facility] [address] [place] [address] Referral ID Status Reason Start Date Expiration Date Visits Requested Visits Authorized [id number] Pending Review Auto-Generat ed Referral 06/23/2022 06/24/2023 1 1 [facility] for referral (narrative)No reason for referral information availableBlDeaconess [facility] Work Phone: Reason for visit Narrative* MRI/CT (Urgent) - Closed Specialty Diagnoses / Procedures Referred By Contac t Referred To Contact CT IMAGING Diagnoses Cirrhosis, nonalcoholic (HCC) Splenomegaly Abdominal swelling, generalized Procedures CT ABD/PEL W IVCON CT ABD & PELVIS W/CONTRAST PodlogarMarli APRN.BUSINESS OPERATIONS COORDINATOR [address] [place] [address] Phone: tel: fax: [place] [address] Referral ID Status Reason Start Date Expiration Date V isits Requested Visits Authorized [id number] Closed Auto-Generate d Referral 08/10/2024 09/09/2025 2 2 [facility] Summary Purpose Family History No Family History Records Found Relationship Condition Age at Onset Recorded Date/T katherin Not Specified Unknown Malignant neoplasm of colon Unknown Diabetes mellitus Unknown Estradiol deficiency Unknown Complication of anesthesia Unknown Hypertension Unknown Advance Directives No Advanced Directives Records FoundDocuments on File Type Date Recorded Patient Material Handling Equipment Stevedore Expl anation Advance Directive(s) 03/13/2021 7:20 AM Advance Directive(s) 08/07/2019 10:33 PM Advance Directive(s) 07/28/2019 1:04 PM Advance Directive(s) 07/21/2019 5:26 AM Advance Directive(s) 05/19/2016 12:44 PM Documents on File Type Date Recorded Patient Material Handling Equipment Stevedore Expl anation Advance Directive(s) 03/13/2021 7:20 AM Advance Directive(s) 08/07/2019 10:33 PM Advance Directive(s) 07/28/2019 1:04 PM Advance Directive(s) 07/21/2019 5:26 AM Advance Directive(s) 05/19/2016 12:44 PM Documents on File Type Date Recorded Patient Material Handling Equipment Stevedore Expl anation Advance Directive(s) 07/08/2021 2:21 PM Advance Directive(s) 03/13/2021 7:20 AM Advance Directive(s) 08/07/2019 10:33 PM Advance Directive(s) 07/28/2019 1:04 PM Advance Directive(s) 07/21/2019 5:26 AM Advance Directive(s) 05/19/2016 12:44 PM Documents on File Type Date Recorded Patient Material Handling Equipment Stevedore Expl anation Advance Directive(s) 07/08/2021 2:21 PM Advance Directive(s) 03/13/2021 7:20 AM Advance Directive(s) 08/07/2019 10:33 PM Advance Directive(s) 07/28/2019 1:04 PM Advance Directive(s) 07/21/2019 5:26 AM Advance Directive(s) 05/19/2016 12:44 PM Advance Directive Response Recorded Date/ Time Advance Directives No January 4:12pm Living Will No February 09 020 4:12pm Power of Geospatial Program Management Officer No February 10, 2020 4:12pm Advance Directive Response Recorded Date/ Time Advance Directives No January 4:12pm Advance Directive Response Recorded Date/ Time Living Will No February 09 020 4:12pm Do you have a Healthcare Power of Geospatial Program Management Officer? No February 10, 2020 4:12pm Advance Directives No January 4:12pm Reason for Referral Specialty Diagnoses / Procedures Referred By Jerald pate Referred To Contact Cardiology Diagnoses Pre-operative cardiovascular examination Postprocedural male urethral stricture Procedures CONSULT TO CARDIOLOGY OFFICE/OUTPATIENT NEW HIGH MDM 60-74 MINUTES Analy Monroy P, HOTHOUSE WORKER.BUSINESS OPERATIONS COORDINATOR [address] [place] [address], [place] [address] Referral ID Status Reason Start Date Expiration Date Visits Requested Visits Authorized [id number] Pending Review PCP Requested Referral 08/05/2021 07/05/2022 1 1 Specialty Diagnoses / Procedures Referred By Contac t Referred To Contact Diagnoses 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 Procedures REFER TO PACC - PRE ANESTHESIA CONSULTATION CLINIC OFFICE/OUTPATIENT [facility] MDM 60-74 MINUTES [facility] [address] [place] [address] Referral ID Status Reason Start Date Expiration Date Visits Requested Visits Authorized [id number] Pending Review PCP Requested Referral 11/28/2022 1 1 Specialty Diagnoses / Procedures Referred By Contac t Referred To Contact CT IMAGING Diagnoses Splenomegaly, not elsewhere classified Hepatic steatosis Thrombocytopenia (HCC) Lower abdominal pain Procedures CT ABD/PEL W IVCON CT ABD & PELVIS W/CONTRAST Dexter Wong, DO [address] [place] [address] Ct Imaging Referral ID Status Reason Start Date Expiration Date Visits Requested Visits Authorized [id number] Authorized Auto-Generat ed Referral 05/23/2022 06/22/2023 1 1 Specialty Diagnoses / Procedures Referred By Contac t Referred To Contact CT IMAGING Diagnoses Splenomegaly, not elsewhere classified Hepatic steatosis Thrombocytopenia (HCC) Lower abdominal pain Procedures CT ABD/PEL W IVCON CT ABD & PELVIS W/CONTRAST Dexter Wong, DO [address] [place] [address] Ct Imaging [facility] Referral ID Status Reason Start Date Expiration Date V isits Requested Visits Authorized [id number] Closed Auto-Generate d Referral 05/23/2022 06/22/2023 1 1 Specialty Diagnoses / Procedures Referred By Contac t Referred To Contact Ophthalmology Diagnoses Diabetes mellitus type II (HCC) Procedures CONSULT TO OPHTHALMOLOGY OFFICE/OUTPATIENT [facility] MDM 60 MINUTES Julián Urias MD [address] [place] [address] Referral ID Status Reason Start Date Expiration Date Visits Requested Visits Authorized [id number] Authorized PCP Requested Referral 09/10/2023 09/09/2024 1 1 Chief Complaint and Reason for Visit Chief Complaint 1 Y FU MARC; 08/30 LM & 09/03 ANS LISTENED Reason for Visit Diabetes Hypothyroidism (acquired) Male hypogonadism Osteopenia determined by x-ray Chief Complaint Admit Date ABDOMINAL PAIN August 15, 2024 11:0 4am Reason for Visit Admit Date Decompensated cirrhosis August 15, 2024 11:04am Chief Complaint Admit Date ABDOMINAL PAIN August 15, 2024 11:0 4am INT LAB ORDERS August 15, 2024 12:3 2pm ACSITES, CIRRHOSIS August 16, 2024 11:0 8am Reason for Visit Admit Date Abdominal pain August 15, 2024 11:0 4am Ascites August 15, 2024 11:0 4am Decompensated cirrhosis August 15, 2024 11:04am Esophageal varices in cirrhosis July 11:04am Pleural effusion on left August 15, 2024 11:04am Portal hypertension August 15, 2024 11:0 4am PVT (portal vein thrombosis) August 15, 2024 11:04am Thrombosis of splanchnic vein August 15, 2024 11:04am Lupus anticoagulant disorder August 15, 2024 11:04am SOB (shortness of breath) August 15 11:04am Ascites August 16, 2024 11:0 8am Chief Complaint Admit Date ABDOMINAL PAIN August 15, 2024 11:0 4am INT LAB ORDERS August 15, 2024 12:3 2pm ACSITES, CIRRHOSIS August 16, 2024 11:0 8am INT LAB ORDERS August 24, 2024 12:2 8pm Chief Complaint Admit Date ABDOMINAL PAIN August 15, 2024 11:0 4am INT LAB ORDERS August 15, 2024 12:3 2pm ACSITES, CIRRHOSIS August 16, 2024 11:0 8am ACSITES, CIRRHOSIS August 16, 2024 1:28 pm INT LAB ORDERS August 24, 2024 12:2 8pm DECOMPENSATED CIRRHOSIS September 09, 2024 2:18pm Reason for Visit Admit Date Abdominal pain August 15, 2024 11:0 4am Ascites August 15, 2024 11:0 4am Decompensated cirrhosis August 15, 2024 11:04am Esophageal varices in cirrhosis July 11:04am Pleural effusion on left August 15, 2024 11:04am Portal hypertension August 15, 2024 11:0 4am PVT (portal vein thrombosis) August 15, 2024 11:04am Thrombosis of splanchnic vein August 15, 2024 11:04am Lupus anticoagulant disorder August 15, 2024 11:04am SOB (shortness of breath) August 15 11:04am Ascites August 16, 2024 11:0 8am Ascites September 09, 2024 2:18 pm Decompensated cirrhosis September 09, 2024 2:18pm Esophageal varices in cirrhosis August 2:18pm Portal hypertension September 09, 2024 2:18 pm PVT (portal vein thrombosis) September 09, 2024 2:18pm Thrombosis of splanchnic vein September 09, 2024 2:18pm Lupus anticoagulant disorder September 09, 2024 2:18pm Chief Complaint Admit Date ABDOMINAL PAIN August 15, 2024 11:0 4am INT LAB ORDERS August 15, 2024 12:3 2pm ACSITES, CIRRHOSIS August 16, 2024 11:0 8am ACSITES, CIRRHOSIS August 16, 2024 1:28 pm INT LAB ORDERS August 24, 2024 12:2 8pm DECOMPENSATED CIRRHOSIS September 09, 2024 2:18pm 1 Y FU November 03, 2024 11:02am Reason for Visit Admit Date Abdominal pain August 15, 2024 11:0 4am Ascites August 15, 2024 11:0 4am Esophageal varices in cirrhosis July 11:04am Pleural effusion on left August 15, 2024 11:04am Portal hypertension August 15, 2024 11:0 4am PVT (portal vein thrombosis) August 15, 2024 11:04am Thrombosis of splanchnic vein August 15, 2024 11:04am Decompensated cirrhosis August 15, 2024 11:04am Lupus anticoagulant disorder August 15, 2024 11:04am SOB (shortness of breath) August 15 11:04am Ascites August 16, 2024 11:0 8am Ascites September 09, 2024 2:18 pm Esophageal varices in cirrhosis August 2:18pm Portal hypertension September 09, 2024 2:18 pm PVT (portal vein thrombosis) September 09, 2024 2:18pm Thrombosis of splanchnic vein September 09, 2024 2:18pm Decompensated cirrhosis September 09, 2024 2:18pm Lupus anticoagulant disorder September 09, 2024 2:18pm Additional Source Comments (unrecognized sect ion and content) No Status Records FoundNo Status Records FoundNo Status Records FoundNo Status Records FoundNo Status Records Found INFORMATION SOURCE (unrecogn ized section and content) DATE CREATED AUTHOR 11/22/2019 [facility] DATE CREATED AUTHOR AUTHOR'S ORGANIZ ATION 01/10/2020 [facility] DATE CREATED AUTHOR AUTHOR'S ORGANIZ ATION 03/15/2021 [facility] DATE CREATED AUTHOR AUTHOR'S ORGANIZ ATION 11/22/2024 [facility] DATE CREATED AUTHOR AUTHOR'S ORGANIZ ATION 11/23/2024 [facility] Source Comments (unrecognize d section and content) In the event this informatio n is protected by the Federal Confidentiality of Alcohol and Drug Abuse Patient Records regulations: The Federal rules restrict any use of the information to criminally investigate or prosecute any alcohol or drug abuse patient.[facility] the event this information is protected by the Federal Confidentiality of Alcohol and Drug Abuse Patient Records regulations: The Federal rules restrict any use of the information to criminally investigate or prosecute any alcohol or drug abuse patient.[facility]In the event this information is protected by the Federal Confidentiality of Alcohol and Drug Abuse Patient Records regulations: The Federal rules restrict any use of the information to criminally investigate or prosecute any alcohol or drug abuse patient.[facility] the event this information is protected by the Federal Confidentiality of Alcohol and Drug Abuse Patient Records regulations: The Federal rules restrict any use of the information to criminally investigate or prosecute any alcohol or drug abuse patient.[facility] HospitalIn the event this information is protected by the Federal Confidentiality of Alcohol and Drug Abuse Patient Records regulations: The Federal rules restrict any use of the information to criminally investigate or prosecute any alcohol or drug abuse patient.[facility] HospitalIn the event this information is protected by the Federal Confidentiality of Alcohol and Drug Abuse Patient Records regulations: The Federal rules restrict any use of the information to criminally investigate or prosecute any alcohol or drug abuse patient.[facility] HospitalIn the event this information is protected by the Federal Confidentiality of Alcohol and Drug Abuse Patient Records regulations: The Federal rules restrict any use of the information to criminally investigate or prosecute any alcohol or drug abuse patient.[facility] HospitalIn the event this information is protected by the Federal Confidentiality of Alcohol and Drug Abuse Patient Records regulations: The Federal rules restrict any use of the information to criminally investigate or prosecute any alcohol or drug abuse patient.[facility] HospitalIn the event this information is protected by the Federal Confidentiality of Alcohol and Drug Abuse Patient Records regulations: The Federal rules restrict any use of the information to criminally investigate or prosecute any alcohol or drug abuse patient.[facility] HospitalIn the event this information is protected by the Federal Confidentiality of Alcohol and Drug Abuse Patient Records regulations: The Federal rules restrict any use of the information to criminally investigate or prosecute any alcohol or drug abuse patient.[facility] HospitalIn the event this information is protected by the Federal Confidentiality of Alcohol and Drug Abuse Patient Records regulations: The Federal rules restrict any use of the information to criminally investigate or prosecute any alcohol or drug abuse patient.[facility] HospitalIn the event this information is protected by the Federal Confidentiality of Alcohol and Drug Abuse Patient Records regulations: The Federal rules restrict any use of the information to criminally investigate or prosecute any alcohol or drug abuse patient.[facility] HospitalIn the event this information is protected by the Federal Confidentiality of Alcohol and Drug Abuse Patient Records regulations: The Federal rules restrict any use of the information to criminally investigate or prosecute any alcohol or drug abuse patient.[facility] HospitalIn the event this information is protected by the Federal Confidentiality of Alcohol and Drug Abuse Patient Records regulations: The Federal rules restrict any use of the information to criminally investigate or prosecute any alcohol or drug abuse patient.[facility] HospitalIn the event this information is protected by the Federal Confidentiality of Alcohol and Drug Abuse Patient Records regulations: The Federal rules restrict any use of the information to criminally investigate or prosecute any alcohol or drug abuse patient.[facility] HospitalIn the event this information is protected by the Federal Confidentiality of Alcohol and Drug Abuse Patient Records regulations: The Federal rules restrict any use of the information to criminally investigate or prosecute any alcohol or drug abuse patient.[facility] HospitalIn the event this information is protected by the Federal Confidentiality of Alcohol and Drug Abuse Patient Records regulations: The Federal rules restrict any use of the information to criminally investigate or prosecute any alcohol or drug abuse patient.[facility] HospitalIn the event this information is protected by the Federal Confidentiality of Alcohol and Drug Abuse Patient Records regulations: The Federal rules restrict any use of the information to criminally investigate or prosecute any alcohol or drug abuse patient.[facility] HospitalIn the event this information is protected by the Federal Confidentiality of Alcohol and Drug Abuse Patient Records regulations: The Federal rules restrict any use of the information to criminally investigate or prosecute any alcohol or drug abuse patient.[facility] HospitalIn the event this information is protected by the Federal Confidentiality of Alcohol and Drug Abuse Patient Records regulations: The Federal rules restrict any use of the information to criminally investigate or prosecute any alcohol or drug abuse patient.[facility] HospitalIn the event this information is protected by the Federal Confidentiality of Alcohol and Drug Abuse Patient Records regulations: The Federal rules restrict any use of the information to criminally investigate or prosecute any alcohol or drug abuse patient.[facility] HospitalIn the event this information is protected by the Federal Confidentiality of Alcohol and Drug Abuse Patient Records regulations: The Federal rules restrict any use of the information to criminally investigate or prosecute any alcohol or drug abuse patient.[facility] HospitalIn the event this information is protected by the Federal Confidentiality of Alcohol and Drug Abuse Patient Records regulations: The Federal rules restrict any use of the information to criminally investigate or prosecute any alcohol or drug abuse patient.[facility] HospitalIn the event this information is protected by the Federal Confidentiality of Alcohol and Drug Abuse Patient Records regulations: The Federal rules restrict any use of the information to criminally investigate or prosecute any alcohol or drug abuse patient.[facility] HospitalIn the event this information is protected by the Federal Confidentiality of Alcohol and Drug Abuse Patient Records regulations: The Federal rules restrict any use of the information to criminally investigate or prosecute any alcohol or drug abuse patient.[facility] HospitalIn the event this information is protected by the Federal Confidentiality of Alcohol and Drug Abuse Patient Records regulations: The Federal rules restrict any use of the information to criminally investigate or prosecute any alcohol or drug abuse patient.[facility] HospitalIn the event this information is protected by the Federal Confidentiality of Alcohol and Drug Abuse Patient Records regulations: The Federal rules restrict any use of the information to criminally investigate or prosecute any alcohol or drug abuse patient.[facility] HospitalIn the event this information is protected by the Federal Confidentiality of Alcohol and Drug Abuse Patient Records regulations: The Federal rules restrict any use of the information to criminally investigate or prosecute any alcohol or drug abuse patient.[facility] HospitalIn the event this information is protected by the Federal Confidentiality of Alcohol and Drug Abuse Patient Records regulations: The Federal rules restrict any use of the information to criminally investigate or prosecute any alcohol or drug abuse patient.[facility] HospitalIn the event this information is protected by the Federal Confidentiality of Alcohol and Drug Abuse Patient Records regulations: The Federal rules restrict any use of the information to criminally investigate or prosecute any alcohol or drug abuse patient.[facility] HospitalIn the event this information is protected by the Federal Confidentiality of Alcohol and Drug Abuse Patient Records regulations: The Federal rules restrict any use of the information to criminally investigate or prosecute any alcohol or drug abuse patient.[facility] HospitalIn the event this information is protected by the Federal Confidentiality of Alcohol and Drug Abuse Patient Records regulations: The Federal rules restrict any use of the information to criminally investigate or prosecute any alcohol or drug abuse patient.[facility] HospitalIn the event this information is protected by the Federal Confidentiality of Alcohol and Drug Abuse Patient Records regulations: The Federal rules restrict any use of the information to criminally investigate or prosecute any alcohol or drug abuse patient.[facility] HospitalIn the event this information is protected by the Federal Confidentiality of Alcohol and Drug Abuse Patient Records regulations: The Federal rules restrict any use of the information to criminally investigate or prosecute any alcohol or drug abuse patient.[facility] HospitalIn the event this information is protected by the Federal Confidentiality of Alcohol and Drug Abuse Patient Records regulations: The Federal rules restrict any use of the information to criminally investigate or prosecute any alcohol or drug abuse patient.[facility] HospitalIn the event this information is protected by the Federal Confidentiality of Alcohol and Drug Abuse Patient Records regulations: The Federal rules restrict any use of the information to criminally investigate or prosecute any alcohol or drug abuse patient.[facility] HospitalIn the event this information is protected by the Federal Confidentiality of Alcohol and Drug Abuse Patient Records regulations: The Federal rules restrict any use of the information to criminally investigate or prosecute any alcohol or drug abuse patient.[facility] HospitalIn the event this information is protected by the Federal Confidentiality of Alcohol and Drug Abuse Patient Records regulations: The Federal rules restrict any use of the information to criminally investigate or prosecute any alcohol or drug abuse patient.[facility] HospitalIn the event this information is protected by the Federal Confidentiality of Alcohol and Drug Abuse Patient Records regulations: The Federal rules restrict any use of the information to criminally investigate or prosecute any alcohol or drug abuse patient.[facility] HospitalIn the event this information is protected by the Federal Confidentiality of Alcohol and Drug Abuse Patient Records regulations: The Federal rules restrict any use of the information to criminally investigate or prosecute any alcohol or drug abuse patient.[facility] HospitalIn the event this information is protected by the Federal Confidentiality of Alcohol and Drug Abuse Patient Records regulations: The Federal rules restrict any use of the information to criminally investigate or prosecute any alcohol or drug abuse patient.[facility] HospitalIn the event this information is protected by the Federal Confidentiality of Alcohol and Drug Abuse Patient Records regulations: The Federal rules restrict any use of the information to criminally investigate or prosecute any alcohol or drug abuse patient.[facility] HospitalIn the event this information is protected by the Federal Confidentiality of Alcohol and Drug Abuse Patient Records regulations: The Federal rules restrict any use of the information to criminally investigate or prosecute any alcohol or drug abuse patient.[facility] HospitalIn the event this information is protected by the Federal Confidentiality of Alcohol and Drug Abuse Patient Records regulations: The Federal rules restrict any use of the information to criminally investigate or prosecute any alcohol or drug abuse patient.[facility] HospitalIn the event this information is protected by the Federal Confidentiality of Alcohol and Drug Abuse Patient Records regulations: The Federal rules restrict any use of the information to criminally investigate or prosecute any alcohol or drug abuse patient.[facility] HospitalIn the event this information is protected by the Federal Confidentiality of Alcohol and Drug Abuse Patient Records regulations: The Federal rules restrict any use of the information to criminally investigate or prosecute any alcohol or drug abuse patient.[facility] HospitalIn the event this information is protected by the Federal Confidentiality of Alcohol and Drug Abuse Patient Records regulations: The Federal rules restrict any use of the information to criminally investigate or prosecute any alcohol or drug abuse patient.[facility] HospitalIn the event this information is protected by the Federal Confidentiality of Alcohol and Drug Abuse Patient Records regulations: The Federal rules restrict any use of the information to criminally investigate or prosecute any alcohol or drug abuse patient.[facility] HospitalIn the event this information is protected by the Federal Confidentiality of Alcohol and Drug Abuse Patient Records regulations: The Federal rules restrict any use of the information to criminally investigate or prosecute any alcohol or drug abuse patient.[facility] HospitalIn the event this information is protected by the Federal Confidentiality of Alcohol and Drug Abuse Patient Records regulations: The Federal rules restrict any use of the information to criminally investigate or prosecute any alcohol or drug abuse patient.[facility] HospitalIn the event this information is protected by the Federal Confidentiality of Alcohol and Drug Abuse Patient Records regulations: The Federal rules restrict any use of the information to criminally investigate or prosecute any alcohol or drug abuse patient.[facility] HospitalIn the event this information is protected by the Federal Confidentiality of Alcohol and Drug Abuse Patient Records regulations: The Federal rules restrict any use of the information to criminally investigate or prosecute any alcohol or drug abuse patient.[facility] HospitalIn the event this information is protected by the Federal Confidentiality of Alcohol and Drug Abuse Patient Records regulations: The Federal rules restrict any use of the information to criminally investigate or prosecute any alcohol or drug abuse patient.[facility] HospitalIn the event this information is protected by the Federal Confidentiality of Alcohol and Drug Abuse Patient Records regulations: The Federal rules restrict any use of the information to criminally investigate or prosecute any alcohol or drug abuse patient.[facility] HospitalIn the event this information is protected by the Federal Confidentiality of Alcohol and Drug Abuse Patient Records regulations: The Federal rules restrict any use of the information to criminally investigate or prosecute any alcohol or drug abuse patient.[facility] HospitalIn the event this information is protected by the Federal Confidentiality of Alcohol and Drug Abuse Patient Records regulations: The Federal rules restrict any use of the information to criminally investigate or prosecute any alcohol or drug abuse patient.[facility] HospitalIn the event this information is protected by the Federal Confidentiality of Alcohol and Drug Abuse Patient Records regulations: The Federal rules restrict any use of the information to criminally investigate or prosecute any alcohol or drug abuse patient.[facility] HospitalIn the event this information is protected by the Federal Confidentiality of Alcohol and Drug Abuse Patient Records regulations: The Federal rules restrict any use of the information to criminally investigate or prosecute any alcohol or drug abuse patient.[facility] HospitalIn the event this information is protected by the Federal Confidentiality of Alcohol and Drug Abuse Patient Records regulations: The Federal rules restrict any use of the information to criminally investigate or prosecute any alcohol or drug abuse patient.[facility] HospitalIn the event this information is protected by the Federal Confidentiality of Alcohol and Drug Abuse Patient Records regulations: The Federal rules restrict any use of the information to criminally investigate or prosecute any alcohol or drug abuse patient.[facility] HospitalIn the event this information is protected by the Federal Confidentiality of Alcohol and Drug Abuse Patient Records regulations: The Federal rules restrict any use of the information to criminally investigate or prosecute any alcohol or drug abuse patient.[facility] HospitalIn the event this information is protected by the Federal Confidentiality of Alcohol and Drug Abuse Patient Records regulations: The Federal rules restrict any use of the information to criminally investigate or prosecute any alcohol or drug abuse patient.[facility] HospitalIn the event this information is protected by the Federal Confidentiality of Alcohol and Drug Abuse Patient Records regulations: The Federal rules restrict any use of the information to criminally investigate or prosecute any alcohol or drug abuse patient.[facility] HospitalIn the event this information is protected by the Federal Confidentiality of Alcohol and Drug Abuse Patient Records regulations: The Federal rules restrict any use of the information to criminally investigate or prosecute any alcohol or drug abuse patient.[facility] HospitalIn the event this information is protected by the Federal Confidentiality of Alcohol and Drug Abuse Patient Records regulations: The Federal rules restrict any use of the information to criminally investigate or prosecute any alcohol or drug abuse patient.[facility] HospitalIn the event this information is protected by the Federal Confidentiality of Alcohol and Drug Abuse Patient Records regulations: The Federal rules restrict any use of the information to criminally investigate or prosecute any alcohol or drug abuse patient.[facility] HospitalIn the event this information is protected by the Federal Confidentiality of Alcohol and Drug Abuse Patient Records regulations: The Federal rules restrict any use of the information to criminally investigate or prosecute any alcohol or drug abuse patient.[facility] HospitalIn the event this information is protected by the Federal Confidentiality of Alcohol and Drug Abuse Patient Records regulations: The Federal rules restrict any use of the information to criminally investigate or prosecute any alcohol or drug abuse patient.[facility] HospitalIn the event this information is protected by the Federal Confidentiality of Alcohol and Drug Abuse Patient Records regulations: The Federal rules restrict any use of the information to criminally investigate or prosecute any alcohol or drug abuse patient.[facility] HospitalIn the event this information is protected by the Federal Confidentiality of Alcohol and Drug Abuse Patient Records regulations: The Federal rules restrict any use of the information to criminally investigate or prosecute any alcohol or drug abuse patient.[facility] HospitalIn the event this information is protected by the Federal Confidentiality of Alcohol and Drug Abuse Patient Records regulations: The Federal rules restrict any use of the information to criminally investigate or prosecute any alcohol or drug abuse patient.[facility] HospitalIn the event this information is protected by the Federal Confidentiality of Alcohol and Drug Abuse Patient Records regulations: The Federal rules restrict any use of the information to criminally investigate or prosecute any alcohol or drug abuse patient.[facility] HospitalIn the event this information is protected by the Federal Confidentiality of Alcohol and Drug Abuse Patient Records regulations: The Federal rules restrict any use of the information to criminally investigate or prosecute any alcohol or drug abuse patient.[facility] HospitalIn the event this information is protected by the Federal Confidentiality of Alcohol and Drug Abuse Patient Records regulations: The Federal rules restrict any use of the information to criminally investigate or prosecute any alcohol or drug abuse patient.[facility] HospitalIn the event this information is protected by the Federal Confidentiality of Alcohol and Drug Abuse Patient Records regulations: The Federal rules restrict any use of the information to criminally investigate or prosecute any alcohol or drug abuse patient.[facility] HospitalIn the event this information is protected by the Federal Confidentiality of Alcohol and Drug Abuse Patient Records regulations: The Federal rules restrict any use of the information to criminally investigate or prosecute any alcohol or drug abuse patient.[facility] HospitalIn the event this information is protected by the Federal Confidentiality of Alcohol and Drug Abuse Patient Records regulations: The Federal rules restrict any use of the information to criminally investigate or prosecute any alcohol or drug abuse patient.[facility] HospitalIn the event this information is protected by the Federal Confidentiality of Alcohol and Drug Abuse Patient Records regulations: The Federal rules restrict any use of the information to criminally investigate or prosecute any alcohol or drug abuse patient.[facility] HospitalIn the event this information is protected by the Federal Confidentiality of Alcohol and Drug Abuse Patient Records regulations: The Federal rules restrict any use of the information to criminally investigate or prosecute any alcohol or drug abuse patient.[facility] HospitalIn the event this information is protected by the Federal Confidentiality of Alcohol and Drug Abuse Patient Records regulations: The Federal rules restrict any use of the information to criminally investigate or prosecute any alcohol or drug abuse patient.[facility] HospitalIn the event this information is protected by the Federal Confidentiality of Alcohol and Drug Abuse Patient Records regulations: The Federal rules restrict any use of the information to criminally investigate or prosecute any alcohol or drug abuse patient.[facility] HospitalIn the event this information is protected by the Federal Confidentiality of Alcohol and Drug Abuse Patient Records regulations: The Federal rules restrict any use of the information to criminally investigate or prosecute any alcohol or drug abuse patient.[facility] HospitalIn the event this information is protected by the Federal Confidentiality of Alcohol and Drug Abuse Patient Records regulations: The Federal rules restrict any use of the information to criminally investigate or prosecute any alcohol or drug abuse patient.[facility] HospitalIn the event this information is protected by the Federal Confidentiality of Alcohol and Drug Abuse Patient Records regulations: The Federal rules restrict any use of the information to criminally investigate or prosecute any alcohol or drug abuse patient.[facility] Reason for Visit (unrecogniz ed section and content) Reason Comments Orders Reason Comments Follow Up Pre Op Clearance 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 Comments Consult Reason Comments Established Sleep Adult Follow up Reason Comments Report On Sleep Study Where was recent s leep study Reason Comments Sleep study order faxed Reason Comments Surgical Followup Reason Comments Radio GI Main HB6 Specialty Diagnoses / Procedures Referred By Contac t Referred To Contact XR IMAGING Diagnoses Postprocedural bulbous urethral stricture Procedures XR VOIDING CYSTO URETHROGRAM URETHROCYSTOGRAPHY VOIDING RS&I Rainer Solares MD [address] [place] [address] Xr Imaging Referral ID Status Reason Start Date Expiration Date V isits Requested Visits Authorized [id number] Closed Auto-Generate d Referral 07/16/2021 08/15/2022 1 1 Reason Comments Returning Patient's Call SPT removal Reason Comments Patient Question Reason Comments Post-Op Visit Reason Comments Follow Up 6 month Reason Comments Patient Update Reason Onset Date Comments Refill Request 09/19/2021 Reason Comments Results Reason Comments Forms Reason Comments Fax requested Reason Comments Rash Reason Comments Follow Up Reason Onset Date Comments F/U 3 Month Immunizations 12/25/2021 Flu vaccination Reason Comments Pre-op AC instructions Reason Onset Date Comments Refill Request 02/20/2022 Reason Onset Date Comments Refill Request 03/05/2022 Reason Onset Date Comments Refill Request 03/20/2022 Reason Onset Date Comments Refill Request 03/30/2022 Reason Comments Results CBC Reason Comments Established Patient Reason Comments Orders Reason Comments F/U 6 Month Reason Onset Date Comments Refill Request 09/07/2022 Reason Onset Date Comments Refill Request 09/08/2022 Reason Comments Cough Congestin, body ache s x 2 days Reason Comments Medication Request Reason Onset Date Comments Refill Request 09/15/[address] Specialty Diagnoses / Procedures Referred By Contac t Referred To Contact CT IMAGING Diagnoses Splenomegaly, not elsewhere classified Hepatic steatosis Thrombocytopenia (HCC) Lower abdominal pain Procedures CT ABD/PEL W IVCON CT ABD & PELVIS W/CONTRAST Dexter Wong, DO [address] [place] [address] [place] [address] Referral ID Status Reason Start Date Expiration Date V isits Requested Visits Authorized [id number] Closed Auto-Generate d Referral 05/23/2022 06/22/2023 1 1 Reason Comments F/U 6 months Reason Onset Date Comments Refill Request 05/20/2023 Reason Onset Date Comments Population Health Navigation Outreach 07/07/2023 [place] AWV/HCC and care gaps Reason Onset Date Comments Population Health Navigation Outreach 09/09/2023 [place] Med Adherence Reason Comments Physical Reason Comments Cough Reason Comments abdominal discomfort Reason Comments Abdominal Pain All over x2 months; increasingly getting worse Specialty Diagnoses / Procedures Referred By Contac t Referred To Contact CT IMAGING Diagnoses Cirrhosis, nonalcoholic (HCC) Splenomegaly Abdominal swelling, generalized Procedures CT ABD/PEL W IVCON CT ABD & PELVIS W/CONTRAST Marli Cook APRN.BUSINESS OPERATIONS COORDINATOR [address] [place] [address] Phone: tel: fax: [facility] Referral ID Status Reason Start Date Expiration Date V isits Requested Visits Authorized [id number] Closed Auto-Generate d Referral 08/10/2024 09/09/2025 2 2 Reason Comments Faxed to [facility] Reason Comments [facility] question regarding procedure Reason Onset Date Comments Refill Request 08/31/2024 Reason Comments Established Patient Reason Onset Date Comments Refill Request 10/24/2024 Care Teams (unrecognized sec tion and content) Team Status: Active Member Role Status Dates Dr. Paul Urias MD Primary Care Provider Acti ve Team Status: Inactive Member Role Status Dates Dr. Paul Urias MD Primary Care Provider Acti ve Start: August 15, 2024 End: August 15, 2024 Dr. Paul Urias MD Referring Provider Active Start: August 15, 2024 End: August 15, 2024 FANNY PachecoC Attending Provider Active Start: August 15, 2024 End: August 15, 2024 Team Status: Active Member Role Status Dates Dr. Paul Urias MD Primary Care Provider Acti ve Start: August 15, 2024 Padmini Bauer SERVICE ORDER EXPEDITER-C Attending Provider Active Start: August 15, 2024 FANNY PachecoC Referring Provider Active Start: August 15, 2024 Team Status: Inactive Member Role Status Dates Dr. Paul Urias MD Primary Care Provider Acti ve Start: August 16, 2024 End: August 16, 2024 AGUSTIN Pacheco Attending Provider Active Start: August 16, 2024 End: August 16, 2024 Padmini Bauer NP-C Referring Provider Active Start: August 16, 2024 End: August 16, 2024 Mailing Manager Relationship Specialty Start Date End Date Julián Urias MD [address] [place] [address] PCP - General Family Practice 04/10/16 Mailing Manager Relationship Specialty Start Date End Date Julián Urias MD [address] [place] [address] PCP - General Family Practice 04/10/16 Mailing Manager Relationship Specialty Start Date End Date Julián Urias MD [address] [place] [address] PCP - General Family Practice 04/10/16 Mailing Manager Relationship Specialty Start Date End Date Julián Urias MD [address] [place] [address] PCP - General Family Practice 04/10/16 Mailing Manager Relationship Specialty Start Date End Date Julián Urias MD [address] [place] [address] PCP - General Family Practice 04/10/16 Mailing Manager Relationship Specialty Start Date End Date Julián Urias MD [address] [place] [address] PCP - General Family Practice 04/10/16 Mailing Manager Relationship Specialty Start Date End Date Julián Urias MD [address] [place] [address] PCP - General Family Practice 04/10/16 Mailing Manager Relationship Specialty Start Date End Date Julián Urias MD [address] [place] [address] PCP - General Family Practice 04/10/16 Mailing Manager Relationship Specialty Start Date End Date Julián Urias MD [address] [place] [address] PCP - General Family Practice 04/10/16 Mailing Manager Relationship Specialty Start Date End Date Julián Urias MD [address] [place] [address] PCP - General Family Practice 04/10/16 Mailing Manager Relationship Specialty Start Date End Date Julián Urias MD [address] [place] [address] PCP - General Family Practice 04/10/16 Mailing Manager Relationship Specialty Start Date End Date Julián Urias MD [address] [place] [address] PCP - General Family Practice 04/10/16 Mailing Manager Relationship Specialty Start Date End Date Julián Urias MD [address] [place] [address] PCP - General Family Practice 04/10/16 Mailing Manager Relationship Specialty Start Date End Date Julián Urias MD [address] [place] [address] PCP - General Family Practice 04/10/16 Mailing Manager Relationship Specialty Start Date End Date Julián Urias MD [address] [place] [address] PCP - General Family Practice 04/10/16 Mailing Manager Relationship Specialty Start Date End Date Julián Urias MD [address] [place] [address] PCP - General Family Practice 04/10/16 Mailing Manager Relationship Specialty Start Date End Date Julián Urias MD [address] [place] [address] PCP - General Family Practice 04/10/16 Mailing Manager Relationship Specialty Start Date End Date Julián Urias MD [address] [place] [address] PCP - General Family Practice 04/10/16 Mailing Manager Relationship Specialty Start Date End Date Julián Urias MD [address] [place] [address] PCP - General Family Practice 04/10/16 Mailing Manager Relationship Specialty Start Date End Date Julián Urias MD [address] [place] [address] PCP - General Family Medicine 04/10/16 Mailing Manager Relationship Specialty Start Date End Date Julián Urias MD [address] [place] [address] PCP - General Family Medicine 04/10/16 Mailing Manager Relationship Specialty Start Date End Date Julián Urias MD [address] [place] [address] PCP - General Family Medicine 04/10/16 Mailing Manager Relationship Specialty Start Date End Date Julián Urias MD [address] [place] [address] PCP - General Family Medicine 04/10/16 Mailing Manager Relationship Specialty Start Date End Date Julián Urias MD [address] [place] [address] PCP - General Family Medicine 04/10/16 Mailing Manager Relationship Specialty Start Date End Date Julián Urias MD [address] [place] [address] PCP - General Family Medicine 04/10/16 Mailing Manager Relationship Specialty Start Date End Date Julián Urias MD [address] [place] [address] PCP - General Family Medicine 04/10/16 Mailing Manager Relationship Specialty Start Date End Date Julián Urias MD [address] [place] [address] PCP - General Family Medicine 04/10/16 Mailing Manager Relationship Specialty Start Date End Date Julián Urias MD [address] [place] [address] PCP - General Family Medicine 04/10/16 Mailing Manager Relationship Specialty Start Date End Date Julián Urias MD [address] [place] [address] PCP - General Family Medicine 04/10/16 Mailing Manager Relationship Specialty Start Date End Date Julián Urias MD [address] [place] [address] PCP - General Family Medicine 04/10/16 Mailing Manager Relationship Specialty Start Date End Date Julián Urias MD [address] [place] [address] PCP - General Family Medicine 04/10/16 Mailing Manager Relationship Specialty Start Date End Date Julián Urias MD [address] [place] [address] PCP - General Family Medicine 04/10/16 Nasir Riggs MD [address] [place] [address] Gastroenterology 05/25/22 Rainer Solares MD [address] [place] [address] Urology 05/25/22 Mailing Manager Relationship Specialty Start Date End Date Julián Urias MD [address] [place] [address] PCP - General Family Medicine 04/10/16 Nasir Riggs MD [address] [place] [address] Gastroenterology 05/25/22 Rainer Solares MD [address] [place] [address] Urology 05/25/22 Mailing Manager Relationship Specialty Start Date End Date Julián Urias MD [address] [place] [address] PCP - General Family Medicine 04/10/16 Nasir Riggs MD [address] [place] [address] Gastroenterology 05/25/22 Rainer Solares MD [address] [place] [address] Urology 05/25/22 Mailing Manager Relationship Specialty Start Date End Date Julián Urias MD [address] [place] [address] PCP - General Family Medicine 04/10/16 Nasir Riggs MD [address] [place] [address] Gastroenterology 05/25/22 Rainer Solares MD [address] [place] [address] Urology 05/25/22 Mailing Manager Relationship Specialty Start Date End Date Julián Urias MD [address] [place] [address] PCP - General Family Medicine 04/10/16 Nasir Riggs MD [address] [place] [address] Gastroenterology 05/25/22 Rainer Solares MD [address] [place] [address] Urology 05/25/22 Mailing Manager Relationship Specialty Start Date End Date Julián Urias MD [address] [place] [address] PCP - General Family Medicine 04/10/16 Nasir Riggs MD [address] [place] [address] Gastroenterology 05/25/22 Rainer Solares MD [address] [place] [address] Urology 05/25/22 Mailing Manager Relationship Specialty Start Date End Date Julián Urias MD [address] [place] [address] PCP - General Family Medicine 04/10/16 Nasir Riggs MD [address] [place] [address] Gastroenterology 05/25/22 Rainer Solares MD [address] [place] [address] Urology 05/25/22 Mailing Manager Relationship Specialty Start Date End Date Julián Urias MD [address] [place] [address] PCP - General Family Medicine 04/10/16 Nasir Riggs MD [address] [place] [address] Gastroenterology 05/25/22 Rainer Solares MD [address] [place] [address] Urology 05/25/22 Mailing Manager Relationship Specialty Start Date End Date Julián Urias MD [address] [place] [address] PCP - General Family Medicine 04/10/16 Nasir Riggs MD [address] [place] [address] Gastroenterology 05/25/22 Rainer Solares MD [address] [place] [address] Urology 05/25/22 Mailing Manager Relationship Specialty Start Date End Date Julián Urias MD [address] [place] [address] PCP - General Family Medicine 04/10/16 Nasir Riggs MD [address] [place] [address] Gastroenterology 05/25/22 Rainer Solares MD [address] [place] [address] Urology 05/25/22 Mailing Manager Relationship Specialty Start Date End Date Julián Urias MD [address] [place] [address] PCP - General Family Medicine 04/10/16 Nasir Riggs MD [address] [place] [address] Gastroenterology 05/25/22 Rainer Solares MD [address] [place] [address] Urology 05/25/22 Mailing Manager Relationship Specialty Start Date End Date Julián Urias MD [address] [place] [address] PCP - General Family Medicine 04/10/16 Nasir Riggs MD [address] [place] [address] Gastroenterology 05/25/22 Rainer Solares MD [address] [place] [address] Urology 05/25/22 Mailing Manager Relationship Specialty Start Date End Date Julián Urias MD [address] [place] [address] PCP - General Family Medicine 04/10/16 Nasir Riggs MD [address] [place] [address] Gastroenterology 05/25/22 Rainer Solares MD [address] [place] [address] Urology 05/25/22 Mailing Manager Relationship Specialty Start Date End Date Julián Urias MD [address] [place] [address] PCP - General Family Medicine 04/10/16 Nasir Riggs MD [address] [place] [address] Gastroenterology 05/25/22 Rainer Solares MD [address] [place] [address] Urology 05/25/22 Mailing Manager Relationship Specialty Start Date End Date Julián Urias MD [address] [place] [address] PCP - General Family Medicine 04/10/16 Nasir Riggs MD [address] [facility] [place] [address] Gastroenterology 05/25/22 Rainer Solares MD [address] [place] [address] Urology 05/25/22 Mailing Manager Relationship Specialty Start Date End Date Julián Urias MD [address] [place] [address] PCP - General Family Medicine 04/10/16 Nasir Riggs MD [address] [place] [address] Gastroenterology 05/25/22 Rainer Solares MD [address] [place] [address] Urology 05/25/22 PodlogMarli hagan APRN.CNP [address] [place] [address] Outside Sales Account Representative Family Medicine 02/06/24 Mailing Manager Relationship Specialty Start Date End Date Julián Urias MD [address] [place] [address] PCP - General Family Medicine 04/10/16 Nasir Riggs MD [address] [place], [place] [address] Gastroenterology 05/25/22 Rainer Solares MD [address] [place] [address] Urology 05/25/22 PodlogarMarli, HOTHOUSE WORKER.BUSINESS OPERATIONS COORDINATOR [address] [place] [address] [facility] 02/06/24 Mailing Manager Relationship Specialty Start Date End Date Julián Urias MD [address] [place] [address] PCP - General Family Medicine 04/10/16 Nasir Riggs MD [address] [place], [place] [address] Gastroenterology 05/25/22 Rainer Solares MD [address] [place] [address] Urology 05/25/22 PodlogarMarli, HOTHOUSE WORKER.BUSINESS OPERATIONS COORDINATOR [address] [place] [address] [facility] Medicine 02/06/24 Aury Gonzalez, HOTHOUSE WORKER.BUSINESS OPERATIONS COORDINATOR [address] [place] [address] [facility] 05/23/24 Mailing Manager Relationship Specialty Start Date End Date Julián Urias MD [address] [place] [address] PCP - General Family Medicine 04/10/16 [facility]ir Riggs MD [address] [facility] [place] [place] [address] Gastroenterology 05/25/22 Rainer Solares MD [address] [place] [address] Urology 05/25/22 PodlogarMarli APRN.BUSINESS OPERATIONS COORDINATOR [address] [place] [address] Outside Sales Account Representative Family Medicine 02/06/24 Aury Gonzalez APRN.BUSINESS OPERATIONS COORDINATOR [address] [place] [address] Outside Sales Account Representative Family Medicine 05/23/24 Mailing Manager Relationship Specialty Start Date End Date Julián Urias MD [address] [place] [address] PCP - General Family Medicine 04/10/16 Nasir Riggs MD [address] [place] [address] Gastroenterology 05/25/22 Rainer Solares MD [address] [place] [address] Urology 05/25/22 PodlogarMarli APRN.BUSINESS OPERATIONS COORDINATOR [address] [place] [address] Outside Sales Account Representative Family Medicine 02/06/24 Aury Gonzalez APRN.BUSINESS OPERATIONS COORDINATOR [address] [place] [address] [facility] 05/23/24 Mailing Manager Relationship Specialty Start Date End Date Julián Urias MD [address] [place] [address] PCP - General Family Medicine 04/10/16 Nasir Riggs MD [address] [place] [address] Gastroenterology 05/25/22 Rainer Solares MD [address] [place] [address] Urology 05/25/22 Podlogar, RAPHAEL CallesN.BUSINESS OPERATIONS COORDINATOR [address] [place] [address] Outside Sales Account Representative [facility] 02/06/24 Mailing Manager Relationship Specialty Start Date End Date Julián Urias MD [address] [place] [address] PCP - General Family Medicine 04/10/16 Nasir Riggs MD [address] [place] [address] Gastroenterology 05/25/22 Rainer Solares MD [address] [place] [address] Urology 05/25/22 Podlogar, Marli, HOTHOUSE WORKER.BUSINESS OPERATIONS COORDINATOR [address] [place] [address] Outside Sales Account Representative [facility] 02/06/24 Mailing Manager Relationship Specialty Start Date End Date Julián Urias MD [address] [place] [address] PCP - General Family Medicine 04/10/16 Nasir Riggs MD [address] [place] [address] Gastroenterology 05/25/22 Rainer Solares MD [address] [place] [address] Urology 05/25/22 Podlogar, SHYANNE Calles.BUSINESS OPERATIONS COORDINATOR [address] [place] [address] Outside Sales Account Representative Family Medicine 02/06/24 Aury Gonzalez APRN.BUSINESS OPERATIONS COORDINATOR [address] [place] [address] [facility] 08/11/24 Mailing Manager Relationship Specialty Start Date End Date Julián Urias MD [address] [place] [address] PCP - General Family Medicine 04/10/16 Nasir Riggs MD [address] [place] [address] Gastroenterology 05/25/22 Rainer Solares MD [address] [place] [address] Urology 05/25/22 Podlogar, SHYANNE Calles.BUSINESS OPERATIONS COORDINATOR [address] [place] [address] Outside Sales Account Representative Family Medicine 02/06/24 Aury Gonzalez APRN.BUSINESS OPERATIONS COORDINATOR [address] [place] [address] Outside Sales [facility] 08/11/24 Mailing Manager Relationship Specialty Start Date End Date Julián Urias MD [address] [place] [address] PCP - General Family Medicine 04/10/16 Nasir Riggs MD [address] [place] [address] Gastroenterology 05/25/22 Rainer Solares MD [address] [place], [place] [address] Urology 05/25/22 Podlogar, Marli, HOTHOUSE WORKER.BUSINESS OPERATIONS COORDINATOR [address] [place] [address] Outside Sales Account [facility] 02/06/24 Aury Gonzalez HOTHOUSE WORKER.BUSINESS OPERATIONS COORDINATOR [address] [place] [address] [facility] 08/11/24 Mailing Manager Relationship Specialty Start Date End Date Julián Urias MD [address] [place] [address] PCP - General Family Medicine 04/10/16 Nasir Riggs MD [address] [place] [address] Gastroenterology 05/25/22 Rainer Solares MD [address] [place] [address] Urology 05/25/22 Podlogar, Marli, HOTHOUSE WORKER.BUSINESS OPERATIONS COORDINATOR [address] [place] [address] Outside Sales Account Representative Family [facility] 02/06/24 Aury Gonzalez APRN.BUSINESS OPERATIONS COORDINATOR [address] [place] [address] [id number] [facility] 08/11/24 Team Status: Active Member Role Status Dates Dr. Paul Urias MD Family Provider Active Dr. Paul Urias MD Primary Care Provider Acti ve Mailing Manager Relationship Specialty Start Date End Date Julián Urias MD [address] [place] [address] PCP - General Family Medicine 04/10/16 Nasir Riggs MD [address] [place] [address] Gastroenterology 05/25/22 Rainer Solares MD [address] [place] [place], [place] [address] Urology 05/25/22 PodlogarMarli APRN.BUSINESS OPERATIONS COORDINATOR [address] [place] [address] [id number] [facility] 02/06/24 Aury Gonzalez, HOTHOUSE WORKER.BUSINESS OPERATIONS COORDINATOR [address] [place] [address] [id number] [facility] 08/11/24 Team Status: Inactive Member Role Status Dates Dr. Paul Urias MD Primary Care Provider Acti ve Start: August 15, 2024 End: August 15, 2024 AGUSTIN Pacheco Attending Provider Active Start: August 15, 2024 End: August 15, 2024 Padmini Juancarlos , SERVICE ORDER EXPEDITER-C Referring Provider Active Start: August 15, 2024 End: August 15, 2024 Mailing Manager Relationship Specialty Start Date End Date Julián Urias MD [address] [place], [place] [address]041 PCP - General Family Medicine 04/10/16 Nasir Riggs MD [address] [place] [address] Gastroenterology 05/25/22 Rainer Solares MD [address] [place], [place] [address] Urology 05/25/22 PodlogarMarli APRN.BUSINESS OPERATIONS COORDINATOR [address] [place] [address] Outside Sales Account Representative Family [facility] 02/06/24 Aury Gonzalez APRN.BUSINESS OPERATIONS COORDINATOR [address] [place], [place] [id number] Outside Sales [facility] 05/23/24 07/17/24 Aury Gonzalez APRN.BUSINESS OPERATIONS COORDINATOR [address] [place], [place] [id number] Outside Sales Account [facility] 08/11/24 Team Status: Active Member Role/Relationship Status Dates Dr. Paul Urias MD Primary Care Provider Acti ve Team Status: Inactive Member Role/Relationship Status Dates Dr. Paul Urias MD Primary Care Provider Acti ve Start: August 15, 2024 End: August 15, 2024 Dr. Paul Urias MD Referring Provider Active Start: August 15, 2024 End: August 15, 2024 Padmini Bauer NP-C Attending Provider Active Start: August 15, 2024 End: August 15, 2024 Team Status: Inactive Member Role/Relationship Status Dates Dr. Paul Urias MD Primary Care Provider Acti ve Start: August 15, 2024 End: August 15, 2024 Padmini Bauer NP-C Attending Provider Active Start: August 15, 2024 End: August 15, 2024 Padmini Bauer SERVICE ORDER EXPEDITER-C Referring Provider Active Start: August 15, 2024 End: August 15, 2024 Team Status: Inactive Member Role/Relationship Status Dates Dr. Paul Urias MD Primary Care Provider Acti ve Start: August 16, 2024 End: August 16, 2024 Padmini Bauer NP-C Attending Provider Active Start: August 16, 2024 End: August 16, 2024 Padmini Bauer NP-C Referring Provider Active Start: August 16, 2024 End: August 16, 2024 Team Status: Inactive Member Role/Relationship Status Dates Dr. Paul Urias MD Primary Care Provider Acti ve Start: August 24, 2024 End: August 24, 2024 Padmini Bauer NP-C Attending Provider Active Start: August 24, 2024 End: August 24, 2024 Padmini Bauer NP-C Referring Provider Active Start: August 24, 2024 End: August 24, 2024 Mailing Manager Relationship Specialty Start Date End Date Julián Urias MD [address] [place] [address] PCP - General Family Medicine 04/10/16 Nasir Riggs MD [address] [place] [address] Gastroenterology 05/25/22 Rainer Solares MD [address] [place] [address] Urology 05/25/22 PodlogMarli hagan APRN.CNP [address] [place], [place] 6058[address] [facility] 02/06/24 Aury GonzalezSHYANNE.BUSINESS OPERATIONS COORDINATOR [address] [place] [address] [facility] 08/11/24 Team Status: Active Member Role/Relationship Status Dates Dr. Paul Urias MD Primary Care Provider Acti ve Start: August 16, 2024 AGUSTIN Pacheco Referring Provider Active Start: August 16, 2024 AGUSTIN Pacheco Other Provider Active St art: August 16, 2024 AGUSTIN Maldonado Attending Provider Active S tart: August 16, 2024 Team Status: Inactive Member Role/Relationship Status Dates Dr. Paul Urias MD Primary Care Provider Acti ve Start: August 24, 2024 End: August 24, 2024 AGUSTIN Pacheco Attending Provider Active Start: August 24, 2024 End: August 24, 2024 AGUSTIN Pacheco Referring Provider Active Start: August 24, 2024 End: August 24, 2024 Team Status: Inactive Member Role/Relationship Status Dates Dr. Paul Urias MD Primary Care Provider Acti ve Start: September 09, 2024 End: September 09, 2024 Dr. Paul Urias MD Referring Provider Active Start: September 09, 2024 End: September 09, 2024 Dr. Ap Anguiano MD Attending Provider Active Start: September 09, 2024 End: September 09, 2024 Mailing Manager Relationship Specialty Start Date End Date Julián Urias MD [address] [place] [address] PCP - General Family Medicine 04/10/16 Nasir Riggs MD [address] [facility] [place] [address] Gastroenterology 05/25/22 Rainer Solares MD [address] [place] [address] Urology 05/25/22 PodlogarMarli APRN.BUSINESS OPERATIONS COORDINATOR [address] [place] [address] Outside Sales Account Representative Family [facility] 02/06/24 Aury Gonzalez APRN.BUSINESS OPERATIONS COORDINATOR [address] [place] [address] Outside Sales Account Representative [facility] 08/11/24 Ap Anguiano [address] [address] Referring Internal Medicine 09/15/24 Mailing Manager Relationship Specialty Start Date End Date Julián [place] [address] [place] [address] PCP - General Family Medicine 04/10/16 Nasir Riggs MD [address] [place] [address] Gastroenterology 05/25/22 Rainer Solares MD [address] [place] [address] Urology 05/25/22 PodlogarMarli APRN.BUSINESS OPERATIONS COORDINATOR [address] [place] [address] [facility] 02/06/24 Aury Gonzalez APRN.BUSINESS OPERATIONS COORDINATOR [address] [place] [address] Outside Sales Account Representative Family [facility] 08/11/24 Ap Anguiano [address] [address] Referring Internal Medicine 09/15/24 Mailing Manager Relationship Specialty Start Date End Date Julián Urias MD [address] [place], [place] 603331 PCP - General Family Medicine 04/10/16 Nasir Riggs MD [address] [facility] [place] [place] [address] Gastroenterology 05/25/22 Rainer Solares MD [address] [place], [place] [address] Urology 05/25/22 PodlogarMarli APRN.BUSINESS OPERATIONS COORDINATOR [address] [place] [address] Outside Sales Account Representative Family Medicine 02/06/24 Aury Gonzalez APRN.BUSINESS OPERATIONS COORDINATOR [address] [place] [address] Outside Sales Account Representative Family Medicine 08/11/24 Ap Anguiano [address] [address] Referring Internal Medicine 09/15/24 Mailing Manager Relationship Specialty Start Date End Date Julián Urias MD [address] [place], [place] 702471 PCP - General Family Medicine 04/10/16 Nasir Riggs MD [address] [facility] [place] [place] [address] Gastroenterology 05/25/22 Rainer Solares MD [address] [place] [address] Urology 05/25/22 Marli Cook APRN.BUSINESS OPERATIONS COORDINATOR [address] [place], [place] [id number] Outside Sales Account Representative Family [facility] 02/06/24 Aury Gonzalez APRN.BUSINESS OPERATIONS COORDINATOR [address] [place] [address] [facility] 08/11/24 Ap Anguiano [address] [address] Referring Internal Medicine 09/15/24 Team Status: Inactive Member Role/Relationship Status Dates Dr. Paul Urias MD Primary Care Provider Acti ve Start: November 03, 2024 End: November 03, 2024 Dr. Paul Urias MD Referring Provider Active Start: November 03, 2024 End: November 03, 2024 Dr. Raad Luna MD Attending Provider Active Sta rt: November 03, 2024 End: November 03, 2024 Goals (unrecognized section and content) Goals may be documented in a n alternate sectionGoals may be documented in an alternate sectionGoals may be documented in an alternate sectionGoals may be documented in an alternate sectionGoals may be documented in an alternate sectionGoals may be documented in an alternate sectionGoals may be documented in an alternate section FOR RECORDS PERTAINING TO PATIENTS WHO ARE OR HAVE BEEN ENROLLED IN A CHEMICAL DEPENDENCY/SUBSTANCEABUSE PROGRAM, SOME INFORMATION MAY BE OMITTED. This clinical summary was aggregated from multiple sources. Caution should be exercised in using it in the provision of clinical care. This summary normalizes information from multiple sources, and as a consequence, information in this document may materially change the coding, format and clinical context of patient data. In addition, data may be omitted in some cases. CLINICAL DECISIONS SHOULD BE BASED ON THE PRIMARY CLINICAL RECORDS. [facility]. provides no warranty or guarantee of the accuracy or completeness of information in this document.
--- NOTE | 2024-11-24 07:48 | EKG12_ITS ---
Test Reason : PREOP Blood Pressure : */* mmHG Vent. Rate : 86 BPM Atrial Rate : 86 BPM P-R Int : 184 ms QRS Dur : 104 ms QT Int : 402 ms P-R-T Axes : 57 18 48 degrees QTcB Int : 481 ms Normal sinus rhythm Prolonged QT Abnormal ECG When compared with ECG of 08-Jun-2014 17:04, Questionable change in QRS axis Confirmed by PITO SMILEY, SANDRA ([id number]), book or script editor BAKARI BRUSH ([id number]) on 12/01/2024 7:17:35 AM Referred By: Paul Urias Confirmed By: SANDRA SHELDON MD
[2024-11-24] MEDS: Lactated Ringers 1,000 ML 15 ML IV (08:05)
--- NOTE | 2024-11-24 08:08 | PRE.ANES_ITS ---
ASA Classification* ASA Classification ASA Classification: 3 Assessment & Plan Anesthesia* Anesthesia Assessment Anesthesia Assessment: Discussed sedation and/or anesthesia options, risks, benefits, and alternatives with patient/parents/legal guardian/POA. Questions invited. The patient/parents/legal guardian/POA seems to understand and agrees to proceed with anesthesia plan. Reviewed the physical assessment, medical history, allergy history and patient home medications list prior to surgery/procedure/anesthetic and documented any changes. Performed airway and anesthesia risk assessments. Anesthesia Type Anesthesia Type: MAC History Source History Obtained from:: Patient and Chart Anesthesia Focused Assessment* Temperature: 97.4 F Pulse Rate: 86 Blood Pressure: 117/67 Respiratory Rate: 18 Pulse Ox: 98 Oxygen Delivery Method: Room Air Airway Assessment Mouth opens: >3 cm Mallampati Score: I Teeth Condition: Dentures (Patient has upper dentures. They are out.) and Missing (Patient is missing several teeth on the bottom. The rest are tight.) Neck Range of motion (ROM): Limited ROM (Slight Decrease) Labs Anesthesia Preop lab: CBC WBC, (4.4-11.0) 2.1 K/mm3 L 08/24/24, 12:31 RBC, (4.6-6.2) 3.93 M/mm3 L 08/24/24, 12:31 Hgb, (13.0-16.5) 10.9 g/dL L 08/24/24, 12:31 Hct, (40-54) 32.6 % L 08/24/24, 12:31 Plt Count, (150-450) 64 K/mm3 L 08/24/24, 12:31 CHEMISTRY Potassium, (3.3-5.1) 3.6 mmol/L 08/24/24, 12:31 Sodium, (133-145) 138 mmol/L 08/24/24, 12:31 BUN, (4-19) 19 mg/dL 08/24/24, 12:31 Creatinine, (0.70-1.20) 0.79 mg/dL 08/24/24, 12:31 Glucose, (70-99) 116 mg/dL H 08/24/24, 12:31 TSH, (0.358-3.74) 6.44 uIU/mL H 07/22/16, 08:14 COAG PT, (11.7-14.9) 16.8 SECONDS H 08/15/24, 12:35 Pre-Assessment Diagnosis/Proposed Procedure Planned Operative Procedure(s): EGD Anesthesia History Anesthesia History - chiropractic assistant: Anesthesia History - chiropractic assistant Hx Hospitalization No 11/21/24 14:37 Any Problems With Anesthesia No 11/21/24 14:37 Cholinesterase deficiency No 11/21/24 14:37 You/Your Family Experience No 11/21/24 14:37 fever (hyperthermia) with Relationship Recent Exposure to Contagious No 11/24/24 07:58 Disease Does patient have nerve Yes: SPINAL, PT STATES IT IS 11/21/24 14:37 stimulator NOT WORKING Patient instructed to have device shut off --Does patient have Pacemaker No 11/24/24 07:58 or ICD? When Was Last Pacemaker Check QUESTION #4 FULL TEXT: You/Your Family Experience fever (hyperthermia) with Anesthesia Last Oral Intake Last Oral intake: Last Oral Intake NPO since 23:30 11/24/24 07:58 Meds taken in AM with sips of No 11/24/24 07:58 water? Meds patient instructed to take am of surgery PONV PONV - chiropractic assistant: PONV - chiropractic assistant Female No 11/21/24 14:37 HX of Motion Sickness No 11/21/24 14:37 HX of N/V After Surgery No 11/21/24 14:37 Non-Smoker Yes 11/21/24 14:37 Duration of Surgery greater No 11/21/24 14:37 than 60 minutes Number of Risk Factors 1 11/21/24 14:37 PONV Score Low Risk 11/21/24 14:37 Height & Weight Height & Weight: Anesthesia: Height & Weight Height 6 ft 1 in 11/24/24 07:58 Weight: 109.3 kg 11/24/24 07:58 Body Mass Index (BMI) 31.8 11/24/24 07:58 Respiratory Assessment Respiratory Assessment - chiropractic assistant: Respiratory Tract Infection Hx - chiropractic assistant Hx Respiratory Tract Infection No 11/21/24 14:37 STOP Sleep Apnea STOP Sleep Apnea - chiropractic assistant: STOP Sleep Apnea - chiropractic assistant Hx Hypertension Yes: PER PT, CONTROLLED ON 11/21/24 14:37 MEDS Hx Sleep Apnea Yes: cpap 11/21/24 14:37 CPAP Yes 11/21/24 14:37 BIPAP No 11/21/24 14:37 Do you snore loudly (louder than talking or can be heard Do you often feel tired/ fatigued/ sleepy during daytime? Has anyone observed you stop breathing during sleep? STOP Results Positive 11/21/24 14:37 QUESTION #5 FULL TEXT : Do you snore loudly (louder than talking or can be heard through closed doors)? 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 Specify any problems Hx of Preganancy in last 3 N/A 11/21/24 14:37 Months Nurse Filling Out Transfusion MGRIFFITH 11/21/24 14:37 & Questions: Date: 11/21/24 11/21/24 14:37 Time: 14:40 11/21/24 14:37 Patient unable to answer at this time (ie. confused, unrespo /Reproduction History /Reproductive History - chiropractic assistant: /Reproductive Hx- chiropractic assistant Hx Now No 11/21/24 14:37 Gestational Age (in weeks): EDC: Hx Hx Para Hx Section SAB No 11/21/24 14:37 Active Medications Active Medications: Current Medications Generic Name Dose Route Start Last Admin Trade Name Freq PRN Reason Stop Dose Admin Lactated Ringer's 1,000 mls @ 15 mls/hr 11/24/24 07:30 11/24/24 08:05 IV 15 mls/hr .Q48H SABINO Administration PFSH Medical History Wears dentures Thyroid disease Fatty liver Easy bruising Difficulty chewing Hypertension Chronic cough Former smoker Sleep apnea CPAP (continuous positive airway pressure) dependence Shortness of breath on exertion Leg cramps History of echocardiogram History of irregular heartbeat Hepatomegaly Hematuria Embolism and thrombosis of unspecified site Esophageal varices DVT of popliteal vein Cirrhosis Chronic lower back pain Cholecystitis Calcified granuloma of lung Adjustment disorder with depressed mood Achilles tendon tear Obesity Diabetes Osteopenia determined by x-ray Lupus anticoagulant disorder Hypothyroidism (acquired) Male hypogonadism History of vertebral compression fracture Splenomegaly Vitamin deficiency Vision problems Pneumonia Hives Frequent headaches Chronic bronchitis BLOOD TRANSFUSION UTI (urinary tract infection) Bone fracture Back problem Home Medications ?Medication ?Instructions ?Recorded ?Last Taken ?Type enoxaparin 120 mg/0.8 mL 120 mg subcut Q12H 06/07/14 11/21/24 History subcutaneous syringe atorvastatin 10 mg tablet 10 mg PO DAILY #1 TAB Unknown Rx syringe with needle 3 mL 22 gauge #6 ea 09/15/23 Unkno wn Rx x 1 doxepin 10 mg capsule 10 mg PO QHS PRN PRN sleep 0 11/05/23 Unknown History metformin 1,000 mg tablet 1,000 mg PO BID 11/05/23 Unk nown History lisinopril 5 mg tablet 5 mg PO DAILY #90 tabs 02/2111/23/24 Rx acetaminophen 325 mg capsule 650 mg PO Q6H PRN pain Unknown History albuterol 90 mcg/actuation aerosol 180 mcg inhalation 4X/DAY PRN PRN 08/15/24 Unknown History inhaler shortness of breath or wheez ing benzonatate 100 mg capsule 100 mg PO TID PRN cough Unknown History ipratropium 0.5 mg-albuterol 3 mg 3 ml inhalation Q4H PRN shortness 08/15/24 Unknown History (2.5 mg base)/3 mL nebulization of breath or wheezing soln carvedilol 3.125 mg tablet 3.125 mg PO BID 1 month #60 tabs 09/09/24 11/23/24 Rx spironolactone 50 mg tablet 50 mg PO QDAY 1 month #30 tabs 09/09/24 Unknown Rx levothyroxine 100 mcg tablet 100 mcg PO DAILY #90 tabs 11/03/24 Unknown Rx testosterone enanthate 200 mg/mL 200 mg IM .COMPLEX #6 mL 11/03/24 Unknown Rx intramuscular oil furosemide 40 mg tablet (Lasix) 40 mg PO QAM #30 tabs 11/21/24 Unknown Rx rifaximin 550 mg tablet (Xifaxan) 550 mg PO BID PRN lo ose stool 11/21/24 Unknown History Allergy/AdvReac Type Severity Reaction Status Date / Time Bleach (Sodium Hypochlorite) Allergy Mild RASH Verified 11/24/24 07:56 piperacillin Allergy Unknown Verified 11/24/24 07:56 vancomycin Allergy Unknown Verified 11/24/24 07:56 latex AdvReac Mild RASH Verified 11/24/24 07:56 Family History Other Anesthesia complication BLOOD CLOT Colon cancer Diabetes Hormone deficiency Hypertension Surgical History History of surgery History of cystoscopy History of wisdom tooth extraction History of cholecystectomy History of colonoscopy History of esophagogastroduodenoscopy (EGD) History of orchiectomy, bilateral Social History Smoking Status: Former smoker Tobacco: How many years used: 2 alcohol intake: current alcohol intake frequency: a few times a month substance use type: does not use Review of Systems (Anesthesia) ROS Narrative System reviewed and no additional complaints, except as documented.
--- NOTE | 2024-11-24 08:30 | EGD_PTH ---
PATIENT: HAL ANDERSON LOC: EN U#:[id number] AGE/SX: 54/M ROOM: RE11/24/[address]: Dr. Yomi Hodge DO : 1970 BED: DIS: 11/24/2024 SPEC #: [id number] RECD: 11/24/24 10:43 STATUS: LATRICE REDamaso #: [id number] CASSIE: 11/24/24 08:[address]: Yomi Hodge DEPT: SURGICAL PATHOLOGY RECD BY: Bernardino Mccabe ENTERED: 11/24/24 14:34 SP TYPE: EGD BIOPSY JIMMY DR: Dr. Paul Urias MD Tissues: A - Gastric mucous membrane Procedures: Immunohistochemical Stains Surgery Specimen Level IV HEADER OPERATION: EGD with biopsy PRE-OP DIAGNOSIS: Esophageal varices in cirrhosis, portal hypertension, decompensated cirrhosis, abdominal pain, ascites TISSUE SUBMITTED: A- Gastric antrum biopsy MICROSCOPIC DIAGNOSIS A. Gastric antrum, biopsy: * Features of reactive gastropathy with focal erosion and acute inflammation. * IHC negative for H. pylori organisms. MICROSCOPIC DESCRIPTION Slides are reviewed. All matched controls reacted appropriately. These tests were developed and their performance characteristics determined by [facility]. They may not have been cleared or approved by the U.S. Food and Drug Administration. The FDA has determined that such clearance or approval is not necessary. The above immunohistochemical/dualISH markers are viewed by the Pathologist. GROSS DESCRIPTION A. Received in fixative is one container labeled with the patient's name and designated Gastric antrum biopsy. The specimen consists of two irregular fragments of leblanc tissue that measure 0.5 and 0.6 cm. The specimen is totally submitted in one cassette. MO 11/24/2024 CPT:03571,10238
--- NOTE | 2024-11-24 08:40 | PCM.HP.STD ---
HPI - General General Date of Admission: 11/24/24 Date of Service: 11/24/24 Chief Complaint: cirrhosis HPI Narrative HPI HPI Details: HAL ANDERSON, is a 54y/o male was seen on 08/15/2024 with complaints of abdominal pain, distension, 20lb weight gain in 2 weeks and occult positive stools. PMH significant for lupus anticoagulant on Lovenox, PE, DVT, DMII, cirrhosis, esophageal varices. Social history: Alcohol: Last drink 4 to 6 months ago. Before that he was drinking occasionally once in 1 to 2-month, started in 20s occasionally. Never been a big drinker. Smoking: High school tried 1 to 2 cigarettes but occasionally. Quit in the high school. Denies history of IV drug abuse. Patient used to take painkillers Percocet. COLON 03/13/2021 per PCP records 5 year recall due 03/13/2026 - descending TA EGD 03/13/2021 Grade II varices in the distal esophagus, small in size, negative or H. pylori occult positive stool 08/11/2024 CT A&P with IV contrast 08/11/2024 hepatic cirrhosis, portal hypertension, large esophageal varices and moderate splenomegaly. There is nonocclusive thrombus within the right and left portal veins, main portal vein, SMV and splenic vein. The venous thrombus is new when compared to prior CT. Moderate to large volume ascites. Moderate left pleural effusion. Patient had paracentesis on 08/16/2024, about 6 L was taken out [facility] Medical History Wears dentures Thyroid disease Fatty liver Easy bruising Difficulty chewing Hypertension Chronic cough Former smoker Sleep apnea CPAP (continuous positive airway pressure) dependence Shortness of breath on exertion Leg cramps History of echocardiogram History of irregular heartbeat Hepatomegaly Hematuria Embolism and thrombosis of unspecified site Esophageal varices DVT of popliteal vein Cirrhosis Chronic lower back pain Cholecystitis Calcified granuloma of lung Adjustment disorder with depressed mood Achilles tendon tear Obesity Diabetes Osteopenia determined by x-ray Lupus anticoagulant disorder Hypothyroidism (acquired) Male hypogonadism History of vertebral compression fracture Splenomegaly Vitamin deficiency Vision problems Pneumonia Hives Frequent headaches Chronic bronchitis BLOOD TRANSFUSION UTI (urinary tract infection) Bone fracture Back problem Home Medications ?Medication ?Instructions ?Recorded ?Last Taken ?Type enoxaparin 120 mg/0.8 mL 120 mg subcut Q12H 06/07/14 11/21/24 History subcutaneous syringe atorvastatin 10 mg tablet 10 mg PO DAILY #1 TAB 05/20/21 Unknown Rx syringe with needle 3 mL 22 gauge #6 ea 09/15/23 Unknown Rx x 1 doxepin 10 mg capsule 10 mg PO QHS PRN PRN sleep 11/05/23 Unknown History metformin 1,000 mg tablet 1,000 mg PO BID 11/05/23 Unknown History lisinopril 5 mg tablet 5 mg PO DAILY #90 tabs 02/22/24 11/23/24 Rx acetaminophen 325 mg capsule 650 mg PO Q6H PRN pain 08/15/24 Unknown History albuterol 90 mcg/actuation aerosol 180 mcg inhalation 4X/DAY PRN PRN 08/15/24 Unknown History inhaler shortness of breath or wheezing benzonatate 100 mg capsule 100 mg PO TID PRN cough 08/15/24 Unknown History ipratropium 0.5 mg-albuterol 3 mg 3 ml inhalation Q4H PRN shortness 08/15/24 Unknown History (2.5 mg base)/3 mL nebulization of breath or wheezing soln carvedilol 3.125 mg tablet 3.125 mg PO BID 1 month #60 tabs 09/09/24 11/23/24 Rx spironolactone 50 mg tablet 50 mg PO QDAY 1 month #30 tabs 09/09/24 Unknown Rx levothyroxine 100 mcg tablet 100 mcg PO DAILY #90 tabs 11/03/24 Unknown Rx testosterone enanthate 200 mg/mL 200 mg IM .COMPLEX #6 mL 11/03/24 Unknown Rx intramuscular oil furosemide 40 mg tablet (Lasix) 40 mg PO QAM #30 tabs 11/21/24 Unknown Rx rifaximin 550 mg tablet (Xifaxan) 550 mg PO BID PRN loose stool 11/21/24 Unknown History Allergy/AdvReac Type Severity Reaction Status Date / Time Bleach (Sodium Hypochlorite) Allergy Mild RASH Verified 11/24/24 07:56 piperacillin Allergy Unknown Verified 11/24/24 07:56 vancomycin Allergy Unknown Verified 11/24/24 07:56 latex AdvReac Mild RASH Verified 11/24/24 07:56 Family History Other Anesthesia complication BLOOD CLOT Colon cancer Diabetes Hormone deficiency Hypertension Surgical History History of surgery History of cystoscopy History of wisdom tooth extraction History of cholecystectomy History of colonoscopy History of esophagogastroduodenoscopy (EGD) History of orchiectomy, bilateral Social History Smoking Status: Former smoker Tobacco: How many years used: 2 alcohol intake: current alcohol intake frequency: a few times a month substance use type: does not use ROS Constitutional Constitutional: Denies fatigue, fever(s), poor appetite, weight gain or weight loss Gastrointestinal Gastrointestinal: Denies belching, bloating, change in bowel habits, change in stool character, chewing difficulty, coffee ground emesis, constipation, cramping, diarrhea, dyspepsia, dysphagia, early satiety, excessive flatus, fecal incontinence, heartburn, hematemesis, hematochezia, hemorrhoids, loose stools, melena, nausea, odynophagia, rectal bleeding, tenesmus, vomiting or weight changes Vital Signs Vital Signs Vital Signs: 11/24/24 07:58 11/24/24 07:58 11/24/24 08:18 Temperature 97.4 F L 97.4 F L Temperature Source Temporal Pulse Rate 86 86 Respiratory Rate 18 18 Respiratory Pattern Normal Blood Pressure 117/67 117/67 Blood Pressure Mean 83 Blood Pressure Source Monitor Blood Pressure Position Semi-Fowlers Blood Pressure Location Left Arm Pulse Ox 98 98 Oxygen Delivery Method Room Air Room Air Weight Weight: 240 lb 15.444 oz Body Mass Index (BMI) 31.8 Physical Exam Const alert, oriented x3, no apparent distress and healthy appearing General Appearance: cooperative GI normal to inspection, nondistended, normoactive bowel sounds, soft to palpation, non-tender and non-distended Percussion: normal to percussion Rectal Exam: deferred Assessment & Plan Assessment/Plan (1) Esophageal varices in cirrhosis: (2) Portal hypertension: (3) Decompensated cirrhosis: (4) Abdominal pain: (5) Ascites: QUALIFIERS: Ascites type: other type Qualified Code(s): R18.8 - Other ascites PLAN: Assessment and Plan Assessment and Plan (1) PVT (portal vein thrombosis): Status: Acute (2) Thrombosis of splanchnic vein: Status: Acute (3) Portal hypertension: Status: Acute (4) Decompensated cirrhosis: Status: Chronic Plan: Patient has decompensated cirrhosis, exact etiology unclear. MELD sodium score 10 but INR on 08/15 and rest of the labs on 08/16, CTP score 8, class B Patient has history of lupus anticoagulant and found to have nonocclusive thrombosis of the right, left and main portal veins, superior mesenteric vein and splenic vein. Nodular liver suggestive of cirrhosis with hypertrophy of the caudate lobe and left lateral segment. No hepatic mass. Stigmata of portal hypertension with large esophageal varices, recanalized paraumbilical vein. Spleen no mass but moderate splenomegaly measuring 21.9 cm. No biliary ductal dilatation. No pancreatic mass or ductal dilatations. Patient states he was not a big alcoholic drinker and her most likely cirrhosis may be chronic thrombosis of portal vein, splenic vein and mesenteric vein resulting into decompensated cirrhosis with portal hypertension and pancytopenia Plan: 1. Diuretic management: Tried to decrease the dependence on paracentesis: Increase spironolactone to 50 mg daily, furosemide continue 40 mg daily. 2. Secondary portal hypertension management: Start carvedilol 3.125 mg twice daily. Schedule EGD with Dr. Hodge. 3. Lupus anticoagulant/thrombosis management: Continue enoxaparin. Continue follow-up with Dr. Dexter Wong 4. Minimal hepatic encephalopathy: Patient denies any obvious symptoms or signs of encephalopathy. Continues rifaximin. 5. HCC surveillance: CT was negative for any lesion. Liver ultrasound with elastography in 6 months. aFP was 2.8 on 08/15/2024 Patient is young, MELD sodium score 10 but referred to [facility] [place] as patient with different etiology of cirrhosis probably lupus anticoagulant disorder Follow-up in 3 months with Padmini and 6 months with al (5) Ascites: Status: Acute Qualifiers: Ascites type: other type Qualified Code(s): R18.8 - Other ascites Plan: Paracentesis may be every 2 to 3 weeks with albumin 25% supplementation 1 g/kg body weight if paracentesis more than 5 L (6) Lupus anticoagulant disorder: Status: Chronic (7) Esophageal varices in cirrhosis: Status: Acute Comment: Occult blood-positive stools, anemia, and thrombocytopenia suggest chronic GI blood loss, likely from portal hypertensive gastropathy or varices. Orders:
--- NOTE | 2024-11-24 09:01 | OP.PROVAT_ITS ---
11/24/2024 Paul Urias Re : Upper GI endoscopy procedure for Melecio Blancas Zeniar Adonay This procedure was performed on October. My impressions and recommendations are as follows: Impressions : - Small (< 5 mm) esophageal varices. - Portal hypertensive gastropathy. - Non-bleeding gastric ulcers with no stigmata of bleeding. Biopsied. - Chronic duodenitis. Recommendations : - Await pathology results. - Repeat upper endoscopy in 4 months for surveillance. - Continue present medications. My findings are described in the full procedure note, which is enclosed. If I can be of further assistance, please feel free to contact me at . Sincerely, Yomi Hodge, 11/24/2024 9:00:41 AM This report has been signed electronically.
--- NOTE | 2024-11-24 09:01 | OP.EGD_ITS ---
Patient Name: Melecio Blancas Procedure Date: 11/24/2024 8:42 AM Date of : 1970 Age: 54 Procedure: Upper GI endoscopy Indications: Epigastric abdominal pain, Cirrhosis with suspected esophageal varices Providers: Yomi Hodge DO Referring MD: Paul Urias Medicines: Monitored Anesthesia Care Patient Profile: This is a 54 year old male. Refer to note in patient chart for documentation of history and physical. Patient has symptoms of chronic dyspepsia and chronic nausea. Complications: No immediate complications. Procedure: Pre-Anesthesia Assessment: - Prior to the procedure, a History and Physical was performed, and patient medications and allergies were reviewed. The patient is competent. The risks and benefits of the procedure and the sedation options and risks were discussed with the patient. All questions were answered and informed consent was obtained. Patient identification and proposed procedure were verified by the physician in the pre-procedure area. Mental Status Examination: alert and oriented. Airway Examination: normal oropharyngeal airway and neck mobility. Respiratory Examination: clear to auscultation. CV Examination: normal. Prophylactic Antibiotics: The patient does not require prophylactic antibiotics. Prior Anticoagulants: The patient has taken no anticoagulant or antiplatelet agents. ASA Grade Assessment: II - A patient with mild systemic disease. After reviewing the risks and benefits, the patient was deemed in satisfactory condition to undergo the procedure. The anesthesia plan was to use monitored anesthesia care (MAC). Immediately prior to administration of medications, the patient was re-assessed for adequacy to receive sedatives. The heart rate, respiratory rate, oxygen saturations, blood pressure, adequacy of pulmonary ventilation, and response to care were monitored throughout the procedure. The physical status of the patient was re-assessed after the procedure. After obtaining informed consent, the endoscope was passed under direct vision. Throughout the procedure, the patient's blood pressure, pulse, and oxygen saturations were monitored continuously. The Endoscope was introduced through the mouth, and advanced to the third part of the duodenum. Small bowel enteroscopy was deemed necessary. The upper GI endoscopy was accomplished without difficulty. The patient tolerated the procedure well. Scope In: 8:50:39 AM Scope Out: 8:53:40 AM Total Procedure Duration Time 0 hours 3 minutes 1 second Findings: Small (< 5 mm) varices were found in the lower third of the esophagus. Portal hypertensive gastropathy was found in the entire examined stomach. Few non-bleeding cratered gastric ulcers with no stigmata of bleeding were found in the gastric antrum. The largest lesion was 10 mm in largest dimension. Biopsies were taken with a cold forceps for histology. Verification of patient identification for the specimen was done. Estimated blood loss was minimal. Biopsies were taken with a cold forceps for Helicobacter pylori testing. Verification of patient identification for the specimen was done. Estimated blood loss: none. Patchy mild inflammation characterized by congestion (edema), erosions, erythema, friability and granularity was found in the entire duodenum. Impression: - Small (< 5 mm) esophageal varices. - Portal hypertensive gastropathy. - Non-bleeding gastric ulcers with no stigmata of bleeding. Biopsied. - Chronic duodenitis. Recommendation: - Await pathology results. - Repeat upper endoscopy in 4 months for surveillance. - Continue present medications. Procedure Code(s): --- Professional --- 40042, Small intestinal endoscopy, enteroscopy beyond second portion of duodenum, not including ileum; with biopsy, single or multiple CPT copyright 2021 [employer]. All rights reserved. The codes documented in this report are preliminary and upon health information systems technician review may be revised to meet current compliance requirements. Yomi Hodge DO 11/24/2024 9:00:41 AM This report has been signed electronically. Number of Addenda: 0 Note Initiated On: 11/24/2024 8:42 AM
--- NOTE | 2024-11-24 09:02 | PCM.POST.ANE ---
Anesthesia: Postop Eval I Current Vital Signs Temperature: 97.6 F Pulse Rate: 95 Blood Pressure: 113/70 Respiratory Rate: 16 Pulse Ox: 95 Oxygen Delivery Method: Room Air Assessment Airway patent: Yes Spontaneous unlabored respirations: Yes Mental status: Asleep nausea: No Vomiting: No Anesthesia Complication: No Fluid Hydration Crystalloid volume administer (ml): 400 Total IV fluid infused: 400 Progress Note Anesthesia document: Postop Eval 1 completed: Yes
--- NOTE | 2024-11-24 10:46 | PCM.POSTANE2 ---
Anesthesia Postop Eval I Sum Postop Eval Completion status Anesthesia document: Postop Eval 1 completed: Yes Anesthesia Postop Eval I Summary Anesthesia Postop Eval I Summary: Anesthesia Postop Eval I: Assessment Summary Airway patent Yes 11/24/24 09:03 [email or web address] Spontaneous unlabored Yes 11/24/24 09:03 [email or web address] respirations Mental status Asleep 11/24/24 09:03 [email or web address] nausea No 11/24/24 09:03 [email or web address] Vomiting No 11/24/24 09:03 [email or web address] Anesthesia Postop Eval I: Fluid Summary Crystalloid volume administer 400 11/24/24 09:03 [email or web address] (ml) Colloids volume administered ( ml) Blood Product volume administered (ml) Total IV fluid infused 400 11/24/24 09:03 [email or web address] Anesthesia Postop Eval I: Summary Notes Anesthesia Complication No 11/24/24 09:03 [email or web address] Anesthesia Complication Comment: Post-operative progress note Anesthesia: Postop Eval II Evaluation Mental status: Awake and Calm Pain Level: 0 nausea: No Vomiting: No Complications Anesthesia Complication: No
== END 2024-11-24 09:35 | disposition home or self-care (01) ==
LOC: EN 07:24 → AC 07:52
PROVIDERS: PCP Family Medicine; Referring Provider Family Medicine; Visit Provider Internal Medicine Gastroenterology
PROC: 0DJ08ZZ Inspection of Upper Intestinal Tract, Via Natural or Artificial Opening Endoscopic (ICD-10-PCS; CPT 43235; principal; 2024-11-24 08:25)
DX: K74.60 Unspecified cirrhosis of liver (principal); I85.00 Esophageal varices without bleeding; K76.6 Portal hypertension; E11.9 Type 2 diabetes mellitus without complications; Z79.84 Long term (current) use of oral hypoglycemic drugs; Z86.718 Personal history of other venous thrombosis and embolism; R18.8 Other ascites; K31.89 Other diseases of stomach and duodenum; I81 Portal vein thrombosis; K29.80 Duodenitis without bleeding; Z79.899 Other long term (current) drug therapy; K25.9 Gastric ulcer, unspecified as acute or chronic, without hemorrhage or perforation; Z87.891 Personal history of nicotine dependence; D68.62 Lupus anticoagulant syndrome; Z79.01 Long term (current) use of anticoagulants; I10 Essential (primary) hypertension; Z90.49 Acquired absence of other specified parts of digestive tract; R10.9 Unspecified abdominal pain; I82.890 Acute embolism and thrombosis of other specified veins
CPT/HCPCS: 44361; 82962; 88305; 88342; 93005; J2405